=== PATIENT | male | born 1955 | race Caucasian/White ===

== ENCOUNTER 2021-12-27 10:03 | Emergency (ER) | payer MEDICARE, BC, SELFPAY ==
[2021-12-27 10:33] VITALS: BP 126/67; PULSE 72; RESP 18; TEMP 36.8; O2SAT 98; BMI 41.1
--- NOTE | 2021-12-27 11:02 | CRLHL7_ITS ---
For Patients: As a result of the Century Cures Act, medical imaging exams and procedure reports are released immediately into your electronic medical record. You may view this report before your referring provider. If you have questions, please contact your health care provider. INDICATION: Pain and swelling COMPARISON: none TECHNIQUE: A compression venous ultrasound exam was performed of both lower extremities using rosenbaum scale imaging, color Doppler and spectral Doppler analysis. FINDINGS: Sonographic imaging of the lower extremities demonstrates normal compressibility and color Doppler venous blood flow within the common femoral, deep femoral, and proximal greater saphenous veins. Within the thighs the femoral veins are patent and compressible. At a lower level the popliteal and posterior tibial veins also show normal compressibility and color Doppler venous blood flow on the left. However, on the right, there is sluggish flow within the right popliteal vein and incomplete compressibility of 1 of the posterior tibial veins. Incomplete visualization of the right peroneal veins. Incidental popliteal cyst is noted on the right measuring 5.1 x 1.2 x 2.1 cm. IMPRESSION: Suspicion of a DVT within the right proximal calf at the level of the distal popliteal vein extending into 1 of the posterior tibial veins and possibly the right peroneal vein. No left-sided DVT. Called to Dr. Herrera 12:40 p.m. 12/27/21. Dictated by Shukri Coles MD @ 12/27/2021 12:41:57 PM (Electronically Signed)
--- NOTE | 2021-12-27 11:04 | ED_ITS ---
HPI - Extremity Problem General Chief complaint: Lower Extremity Swelling Stated complaint: Swelling right leg Time Seen by Provider: 12/27/21 10:43 History of Present Illness HPI Narrative: This 66-year-old male comes in reporting pain and swelling in his right lower extremity. This began about a week ago and is not related to any particular injury event or strenuous activity. He does have chronic knee pain. He states that he typically lays around most of the day and watches TV. He does not report any chest pain or shortness of breath. He does not have a prior history of DVT. Related Data Home Medications Medication Instructions Recorded Confirmed aspirin 81 mg tablet,delayed 81 mg PO QDAY 11/27/21 11/27/21 release lisinopril 20 mg tablet 20 mg PO QDAY 11/27/21 11/27/21 lorazepam 1 mg tablet 1 mg PO QDAY 11/27/21 11/27/21 meloxicam 15 mg tablet 15 mg PO QDAY 11/27/21 11/27/21 metformin 500 mg tablet 1,000 mg PO BID 11/27/21 11/27/21 omeprazole 40 mg capsule,delayed 40 mg PO DAILY 11/27/21 11/27/21 release quetiapine 200 mg tablet 200 mg PO QDAY 11/27/21 11/27/21 sertraline 50 mg tablet 50 mg PO QDAY 11/27/21 11/27/21 simvastatin 20 mg tablet 20 mg PO .hs 11/27/21 11/27/21 tamsulosin 0.4 mg capsule 0.4 mg PO QDAY 11/27/21 11/27/21 trazodone 50 mg tablet 50 mg PO .hs 11/27/21 11/27/21 Previous Rx's Medication Instructions Recorded glimepiride 4 mg tablet 4 mg PO QDAY #90 tabs 11/27/21 semaglutide 0.25 mg or 0.5 mg (2 0.25 mg (0.2 mL) subcut QWEEK #1.5 11/27/21 mg/1.5 mL) subcutaneous pen mL injector (Ozempic) sitagliptin 100 mg tablet 100 mg PO QDAY #30 tabs 11/27/21 allopurinol 300 mg tablet 300 mg PO QDAY Gout #90 tabs 12/13/21 tramadol 50 mg tablet 50 - 100 mg PO QDAY PRN pain #90 12/18/21 tabs gabapentin 300 mg capsule 900 mg PO TID #270 caps 12/20/21 apixaban 5 mg (74 tabs) tablets in See Rx Instructions PO .COMPLEX 12/27/21 a dose pack #74 ea Allergies Allergy/AdvReac Type Severity Reaction Status Date / Time No Known Allergies Allergy Verified 11/27/21 09:29 Review of Systems Status of ROS: Reports: 10 or more systems reviewed and unremarkable except as noted in History and below Narrative: Constitutional: No fevers, no weight gain or loss. Eyes: No discharge. No vision changes. HENT: No congestion, no sore throat, no ear pain. Cardiovascular: No chest pain, no palpitations. Respiratory: No shortness of breath, no wheezes, no cough. Gastrointestinal: No abdominal pain, no vomiting, no diarrhea. Genitourinary: No dysuria, no hematuria. Musculoskeletal: Normal range of motion. Right lower extremity pain and swelling as described above. Skin: No rashes, no pruritis. Neurological: No dizziness, weakness, sensory change, speech change. Endo/Heme/Allergies: No bruising or bleeding. No polydipsia. Pysch: no suicidality, no anxiety, no insomnia. All other systems reviewed and are negative. 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 HEENT: Normocephalic, atraumatic. Neck: Normal range of motion. Nontender. Supple. Heart: Regular. No murmurs. Normal rate. Intact distal pulses. Lungs: Clear to auscultation. No chest discomfort. No wheezes, rhonchi, or rales. Abdomen: Normal bowel sounds. Nontender. No rebound tenderness. Genitalia: Deferred. Back: No midline tenderness. Normal range of motion. Extremities: Normal range of motion. Right lower extremity is distinctly larger from his knee extending down into the ankle and foot. There is distinct pain when palpating along his right lower extremity. Skin: Intact. No rash. Warm. No erythema or pallor. Neurologic: No altered sensation. No weakness. Alert and oriented. Psychiatric: No suicidality. No anxiety or depression. No insomnia. Nursing notes and vitals signs are reviewed. Const: Vital Signs, click to edit/add: Vital Signs - 24 hr 12/27/21 10:33 Temperature 98.3 F Pulse Rate [Right Pulse Oximeter] 72 Respiratory Rate 18 Blood Pressure [Ri ght Upper Arm] 126/67 Pulse Oximetry 98 Oxygen Delivery Me thod Room Air Course Vital Signs Vital signs: Initial Vital Signs Temperature 98.3 F 12/27/21 10:33 Temperature Source Temporal Artery Scan 12/27/21 10:33 Pulse Rate 72 12/27/21 10:33 Respiratory Rate 18 12/27/21 10:33 Blood Pressure 126/67 12/27/21 10:33 Blood Pressure Mean 86 12/27/21 10:33 Blood Pressure Position Sitting 12/27/21 10:33 Pulse Oximetry 98 12/27/21 10:33 Oxygen Delivery Method 12/27/21 10:33 Vital Signs Temperature 98.3 F 12/27/21 10:33 Pulse Rate 72 12/27/21 10:33 Respiratory Rate 18 12/27/21 10:33 Blood Pressure 126/67 12/27/21 10:33 Pulse Oximetry 98 12/27/21 10:33 Oxygen Delivery Method 12/27/21 10:33 Temperature 98.3 F 12/27/21 10:33 Pulse Rate 72 12/27/21 10:33 Respiratory Rate 18 12/27/21 10:33 Blood Pressure 126/67 12/27/21 10:33 Pulse Oximetry 98 12/27/21 10:33 Oxygen Delivery Method 12/27/21 10:33 MDM - Extremity (Nontraumatic) MDM Narrative Medical decision making narrative: This patient comes in with pain and swelling in his right lower extremity. Ul trasound imaging does show evidence of a clot in the calf of his right leg. Patient does not have any chest pain or shortness of breath. He does not have any abnormal vital signs are hypoxia. I did discuss CT imaging of his chest which she declined. He the patient received a tablet of Eliquis 10 mg and a prescription for the same. He is okay to be discharged home. Imaging Data Venous US: Radiologist's impression: Suspicion of a DVT within the right proximal calf at the level of the distal popliteal vein extending into 1 of the posterior tibial veins and possibly the right peroneal vein. No left-sided DVT. Discharge Plan Discharge Clinical Impression: Deep venous thrombosis Condition: Stable Instructions: Deep Vein Thrombosis (ED) Additional Instructions: Take medication as prescribed. Follow up with primary physician. Return if worsening symptoms happen. Prescriptions: New apixaban 5 mg (74 tabs) tablets,dose pack See Rx Instructions .ROUTE .COMPLEX Qty: 74 0RF Rx Instructions: orally per package directions No Action omeprazole 40 mg capsule,delayed release(DR/EC) 40 mg PO DAILY Label Comments: TAKE ONE CAPSULE BY MOUTH DAILY simvastatin 20 mg tablet 20 mg PO .hs Label Comments: TAKE ONE TABLET BY MOUTH AT BEDTIME sertraline 50 mg tablet 50 mg PO QDAY Label Comments: TAKE 1 TABLET BY MOUTH DAILY metformin 500 mg tablet 1,000 mg PO BID lorazepam 1 mg tablet 1 mg PO QDAY Label Comments: TAKE ONE TABLET BY MOUTH TWICE DAILY NEEDED quetiapine 200 mg tablet 200 mg PO QDAY Label Comments: TAKE ONE TABLET BY MOUTH AT BEDTIME tamsulosin 0.4 mg capsule 0.4 mg PO QDAY Label Comments: TAKE ONE CAPSULE BY MOUTH DAILY lisinopril 20 mg tablet 20 mg PO QDAY Label Comments: take 1 tablet by mouth daily trazodone 50 mg tablet 50 mg PO .hs Label Comments: take 1.5 tablets by mouth 3 times daily meloxicam 15 mg tablet 15 mg PO QDAY Label Comments: TAKE ONE TABLET BY MOUTH DAILY aspirin 81 mg tablet,delayed release (DR/EC) 81 mg PO QDAY Ozempic 0.25 mg or 0.5 mg(2 mg/1.5 mL) pen injector 0.25 mg subcut QWEEK Qty: 1.5 1RF Rx Instructions: for 4 doses then 0.5 mg weekly x 4 weeks glimepiride 4 mg tablet 4 mg PO QDAY Qty: 90 1RF sitagliptin 100 mg tablet 100 mg PO QDAY Qty: 30 2RF Rx Instructions: 1/2 QD x 2 weeks then 1 QD allopurinol 300 mg tablet 300 mg PO QDAY Qty: 90 3RF Label Comments: TAKE 1 TABLET BY MOUTH DAILY tramadol 50 mg tablet 50 - 100 mg PO QDAY PRN (Reason: pain) Qty: 90 2RF Label Comments: take 1-2 tablets by mouth every 6 hours as needed gabapentin 300 mg capsule 900 mg PO TID Qty: 270 11RF Follow Up/Referrals: Mario Keith MD [Primary Care Provider] - Stand Alone Forms: [facility] Info Instructions
--- OUTSIDE RECORDS SUMMARY | 2021-12-27 11:07 | XMS_ITS | Clinical Summary ---
:1955 Author Organization [place] Address [address] [place] [address] Care Team Providers Name Role Phone Mario Keith MD Primary Care Provider [phone] Allergies Active Allergy Reactions Severity Noted Date Comments Bupropion Hydrobromide Hives 06/20/2012 Medications Medication Sig Dispensed Refills Start Date End Date Status allopurinol (ZYLOPRIM) Take 1 tablet by 0 12/15/2020 Active 300 MG tablet mouth daily aspirin (ASA) 81 MG Take 81 mg by 0 Active chewable tablet mouth daily gabapentin (NEURONTIN) Take 900 mg by 0 01/30/2021 Active 300 MG capsule mouth 3 times daily lisinopril (ZESTRIL) Take 20 mg by 0 12/18/2020 Active 20 MG tablet mouth daily metFORMIN (GLUCOPHAGE) Take 500 mg by 0 02/23/2021 Active 500 MG tablet mouth 3 times daily (with meals) omeprazole (PRILOSEC) Take 40 mg by 0 02/20/[address] capsule mouth daily QUEtiapine (SEROQUEL) Take 200 mg by 0 02/20/2021 Active 200 MG tablet mouth At Bedtime sertraline (ZOLOFT) 50 Take 50 mg by 0 01/20/2021 Active MG tablet mouth daily simvastatin (ZOCOR) 20 Take 20 mg by 0 01/24/2021 Active MG tablet mouth daily (with dinner) tamsulosin (FLOMAX) Take 0.4 mg by 0 02/15/2021 Active 0.4 MG capsule mouth daily traMADol (ULTRAM) 50 Take 1-2 tablets 0 02/28/2021 Active MG tablet by mouth every 6 hours as needed for pain traZODone (DESYREL) 50 Take 75 mg by 0 02/28/2021 Active MG tablet mouth At Bedtime meloxicam (MOBIC) 15 Take 15 mg by 0 12/12/2020 Active MG tablet mouth daily LORazepam (ATIVAN) 1 Take 0.5 tablets 0 03/06/2021 Active MG tablet (0.5 mg) by mouth 3 times daily as needed for anxiety Active Problems Problem Noted Date Acute right-sided weakness 03/03/2021 Gastric bypass status for obesity 01/04/2013 JUSTIN (generalized anxiety disorder) 10/18/2009 Major depressive disorder, recurrent episode 0 Alcohol abuse, continuous 08/31/2009 Esophageal reflux 04/03/2006 Obesity, unspecified 04/03/2006 Tobacco use disorder 04/03/2006 Overview: Formatting of this note might be differe nt from the original. 12 year history of 5 PPD. Quit in December of 2005. Essential hypertension DM2 (diabetes mellitus, type 2) STEVEN (obstructive sleep apnea) Social History Tobacco Use Types Packs/Day Years Used Date Former Smoker Smokeless Tobacco: Never Used Alcohol Use Standard Drinks/Week Comments Yes 3 (1 standard drink = 0.6 oz pure Alcoho lic Drinks/day: none in last alcohol) week, usual 4-5 beer s a day Sex Assigned at Date Recorded Not on file Last Filed Vital Signs Vital Sign Reading Time Taken Comments Blood Pressure 187/83 03/06/2021 3:58 PM CDT Pulse 81 03/06/2021 3:58 PM CDT Temperature 37 ??C (98.6 ??F) 03/06/2021 3:58 PM CDT Respiratory Rate 18 03/06/2021 3:58 PM CDT Oxygen Saturation 96% 03/06/2021 3:58 PM CDT Inhaled Oxygen Concentration - - Weight 137.8 kg (303 lb 14.4 oz) 03/03/2021 3:42 PM CDT Height 180.3 cm (5' 11) 03/03/2021 3:42 PM CDT Body Mass Index 42.39 03/03/2021 3:42 PM CDT Plan of Treatment Health Maintenance Due Date Last Done Comments ADVANCE CARE PLANNING 1955 ANNUAL REVIEW OF HM ORDERS [address] CT COLONOGRAPHY 1954 DEPRESSION ACTION PLAN 1954 DIABETIC FOOT EXAM 1954 EYE EXAM 1954 FIT-DNA (Cologuard) 1954 FIT 1954 FLEX SIG 1954 MICROALBUMIN 1954 PHQ-9 1954 COLONOSCOPY 1964 COLORECTAL CANCER SCREENING 1964 HEPATITIS C SCREENING 1972 DTAP/TDAP/TD IMMUNIZATION 11/22/1979 (1 - Tdap) LUNG CANCER SCREENING 2004 AORTIC ANEURYSM SCREENING 11/22/2019 (SYSTEM ASSIGNED) FALL RISK ASSESSMENT 11/22/2019 MEDICARE ANNUAL WELLNESS 11/22/2019 VISIT COVID-19 Vaccine (2 - 09/18/2020 07/24/2020 Booster for Mellissa series) A1C 09/01/2021 03/03/2021, 11/29/2017 INFLUENZA VACCINE (#1) 2022 02/02/2021, 01/13/2020, 02/12/2019, Additional history exists LIPID 03/03/2022 03/03/2021 BMP 03/04/2022 03/04/2021, 03/03/2021, 11/29/2017, Additional history exists Pneumococcal Vaccine: 65+ 11/14/2022 07/06/2020, 11/14/2017 , Years (3 - PPSV23 or PCV20) 07/04/2012 ZOSTER IMMUNIZATION Completed 09/05/2018, 11/14/2017 IPV IMMUNIZATION Aged Out No longer eligi ble based on patient 's age to complete this topic MENINGITIS IMMUNIZATION Aged Out No longe r eligible based on patient 's age to complete this topic Medical Devices Implanted Type Area Child Welfare Consultant Device Shelf Model / Identifier Expiration Serial / Date Lot Cement Bone Simplex Hv 40g W/O Gentra Cement, N/A: YVON 04/18/2019 [id number] / Implanted: Qty: 2 on 11/28/2017 Bone Knee ORTHOPEDICS / [id number] Description: Implanted into bilateral kn ees Persona Partial Knee System Partial Bárbara cular Surface Left Medial Size J 8mm Thickness Total Joint Left: Shopography 08/17/2021 [id number] / Implanted: Qty: 1 on 11/28/2017 Component/Insert Knee / [id number] Insurance Payer Benefit Plan / Subscriber ID Effective Phone Address T ype Group Dates BCBS [place] [id number] 2018-Prese [phone] [address] [id number] [address] [place] [address] MEDICARE MEDICARE [id number] 2012-Pres [phone] ATTN CLAI [place] Medicare ent 40 [address] [place] [address] Advance Directives For more information, please contact: [phone] Latest Code Status on File Code Status Date Activated Date Inactivated Comments Full Code 03/03/2021 3:38 PM 03/06/2021 6:26 PM All basic and advanced life-sustaining interventions are performed as oj ropriate Code status determined by: Discussion with patient/ legal de cision maker Care Teams Cement Patcher Relationship Specialty Start Date End Date Mario Keith MD PCP - General Internal Medicine 11/28/17 [facility] [address] [place] [address]
--- OUTSIDE RECORDS SUMMARY | 2021-12-27 11:08 | XMS_ITS | Encounter Summary ---
:1955 Author Organization [facility] Address [address] [place] [address] Care Team Providers Name Role Phone Unavailable Primary Care Provider Unavailable Encounter Details Date Type Department Care Team Description 03/07/2009 Historic Notes INTERFACED REPORT Blas Becker DO [facility] [address] [facility] [address] [place] [address] (Wo rk) Social History Tobacco Use Types Packs/Day Years Used Date Never Assessed Sex Assigned at Date Recorded Not on file documented as of this encounter Progress Notes 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 He states that he is having fun in the hospital. He states improvement in his depression and anxiety. He slept ok last night and is tolerating the medication without SE. He also reports improvement in his pain. Review of Systems - Constitutional: Negative - Skin: Negative - Musculoskeletal numbness in left leg Comments: - Eyes: Negative - ENT: Negative - Endocrine Comments: DM - Respiratory: Negative - Cardiovascular: Negative - Heme: Negative - Lymph: Negative - GI: Negative - : Negative - Neuro: Negative - Psych Comments: depression / anxiety Mental Status Exam - General Appearance: fair grooming and hygiene - Speech: RRR - Thought Process: goal directed - Suicidal/Ideation/Ho_ denies micidal Ideations/Psychosis: - Associations: denies - Judgment and Insight: limited - Orientation to Time, x3 Place, Person: - Recent and Remote intact Memory: - Attention Span and intact Concentration: - Fund of Knowledge: wnl - Mood and Affect: depressed/anxious broad - Muscle wnl Strength/Tone/Gait and Station: Labs Laboratory 08:23 Glucose by Meter 146 VS 1. Vital Signs Adult Med Surg 08:00 - Temperature degrees 36.6 C - Temperature degrees 98 F - Resp, Pulse Ox Resp 16 Rate - Pain complains of pain/discomfort Assessment/Number Scale (0-10) (Adult) Presence of Pain - Pain feet Assessment/Number Scale (0-10) (Adult) Pain Location - Pain 2 Assessment/Number Scale (0-10) (Adult) Pain Rating: Rest - BP Sitting Systolic 104 mmHg - BP Sitting Diastolic 64 mmHg - BP Sitting HR bpm 59 - BP Standing Systolic 120 mmHg - BP Standing 73 Diastolic mmHg - BP Standing HR bpm 69 Risk Assessment - Diagnosis(es): MDD Anxiety D/O NOS Benzo depend. Personality D/O NOS - Discussion/Plan of discussed continued pheno taper. dicussed Care: working toward D/C Saturday. continue current treatment plan. Signatures BLAS BECKER (DO)[Signed 10:42] Authored: Problem List, Interval History, Review of Systems, Mental Status Exam, Labs, VS, Risk Assessment Entered: Problem List, Interval History, Review of Systems, Mental Status Exam, VS, Risk Assessment documented in this encounter Plan of Treatment Not on filedocumented as of this encounter Visit Diagnoses Not on filedocumented in this encounter
--- OUTSIDE RECORDS SUMMARY | 2021-12-27 11:08 | XMS_ITS | Encounter Summary ---
:1955 Author Organization [facility] Address [address] [place] [address]. [place] [address] Care Team Providers Name Role Phone Unavailable Primary Care Provider Unavailable Reason for Visit Reason Onset Date Comments Abstract 05/28/2017 Encounter Details Date Type Department Care Team Description 05/28/2017 Documentation Only [facility] Erica Rodriguez bstract Surgical Weight Loss Paras Be A-Aldo [id number] [place] [address] [place] [address] [phone] Social History Tobacco Use Types Packs/Day Years Used Date Never Assessed Sex Assigned at Date Recorded Not on file documented as of this encounter Plan of Treatment Not on filedocumented as of this encounter Visit Diagnoses Not on filedocumented in this encounter
--- OUTSIDE RECORDS SUMMARY | 2021-12-27 11:08 | XMS_ITS | Encounter Summary ---
:1955 Author Organization [facility] Address [address] [place] [address] Care Team Providers Name Role Phone Unavailable Primary Care Provider Unavailable Encounter Details Date Type Department Care Team Description 03/05/2009 Historic Results [facility] [address] [facility] [place] [address] (Wo rk) Social History Tobacco Use Types Packs/Day Years Used Date Never Assessed Sex Assigned at Date Recorded Not on file documented as of this encounter Plan of Treatment Not on filedocumented as of this encounter Procedures Procedure Name Priority Date/Time Associated Diagnosis Comme nts GLUCOSE BY METER Routine 03/05/2009 5:33 PM Resul ts for this CDT procedure are i n the results section. GLUCOSE BY METER Routine 03/05/2009 8:39 AM Resul ts for this CDT procedure are i n the results section. documented in this encounter Results (ABNORMAL) Glucose by meter (03/05/2009 5:33 PM CDT) P athologist Signature Glucose 129 (H) 60 - 99 MISYS mg/dL Specimen Anatomical Collection Method Collection Time Receive d Time (Source) Location / / Volume Laterality 03/05/2009 5:33 PM 9 1:15 CDT AM CDT Shukri Becker DO LAB - [facility] Performing Organization Address City/State/ZIP Code Phon e Number MISYS (ABNORMAL) Glucose by meter (03/05/2009 8:39 AM CDT) P athologist Signature Glucose 130 (H) 60 - 99 [place] mg/dL Specimen Anatomical Collection Method Collection Time Receive d Time (Source) Location / / Volume Laterality 03/05/2009 8:39 AM 9 8:50 CDT AM CDT Shukri HANNAH - [facility] Performing Organization Address City/State/ZIP Code Phon e Number MISYS documented in this encounter Visit Diagnoses Not on filedocumented in this encounter
--- OUTSIDE RECORDS SUMMARY | 2021-12-27 11:08 | XMS_ITS | Encounter Summary ---
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 - Patient Care Unit: Station 33 - Discharge To: Home/Alternative home - Method of discharge: Wheel Chair - Transportation: Private Medications and Prescriptions - Medications and Prescriptions sent to pharmacy Prescriptions Special Care Needs and Instructions - Diet Instructions: Gastric bypass diet education completed. - Report temp if 101 degrees F greater than: - Symptoms/Problems to See weight loss surgery sheet look for at home- call the physician about: - Who patient should Dr. White call: - Phone number of [facility] [phone] patient should call: Other Discharge Education, Materials, and Instructions - Other Education, Going home after weight loss surgery sheet Materials, and Instructions: Follow Up Care - Physician/clinician Dr. White name: - - When to see 1 week physician/clinician: DAVIDA Lutz (RD, LD)[Signed 12:07] Authored: Special Care Needs and Instructions AUGUSTUS MENDOZA (RN)[Signed 11:31] Authored: Discharge Planning, Medications and Prescriptions, Special Care Needs and Instructions, Other Discharge Education, Materials, and Instructions, Follow Up Care Interface, Supervisor [facility] - 08/06/2010 9:23 PM CDT BARIATRIC SURGERY CONSULT Ht: 70 Wt: 298.15# BMI: 42.8 IBW: 166# +/-10% %IBW: 180% NUTRITION PRESCRIPTION: Gastric bypass liquids Energy Needs: 2034 kcals (15 kcal/kg ABW) Protein needs: 76-98 gms (1.0 to 1.3 gm/kg IBW) Fluid needs: 2034 mls (1ml/kcal ABW) Know pt will not meet estimated needs due to the restrictive nature of surgery NUTRITION DIAGNOSIS: Obesity R/t excess energy intake AEB current BMI of 42.8 INTERVENTIONS: 1) Reviewed gastric bypass diet guidelines, provided copy of diet materials 2) Pt verbalizes understanding of diet. Expect good compliance with diet at home GOALS: 1) Pt to follow diet advancement as instructed 2) Pt weight to have decreased from pre-op weight at 2 week F/U appointment FOLLOW UP: 1) Pt will tolerate diet 2) Pt to call with questions, RD phone number provided [Signature] Author: DAVIDA KIM (RD, LD) [Signed 12:05] documented in this encounter Plan of Treatment Not on filedocumented as of this encounter Visit Diagnoses Not on filedocumented in this encounter
--- OUTSIDE RECORDS SUMMARY | 2021-12-27 11:08 | XMS_ITS | Encounter Summary ---
:1955 Author Organization [facility] Address [address] [place] [address] Care Team Providers Name Role Phone Unavailable Primary Care Provider Unavailable Reason for Visit Reason Onset Date Comments Clinic Care Coordination - Initial 02/27/2016 Encounter Details Date Type Department Care Team Description 02/27/2016 Telephone General Surgery Gaby Sanford, Clinic Care [address] [facility] RN Coordination - Initial 4th Floor [address] [place] [id number] [place], [place] [phone] (Wo rk) Social History Tobacco Use Types Packs/Day Years Used Date Never Assessed Sex Assigned at Date Recorded Not on file documented as of this encounter Miscellaneous Notes Telephone Encounter - Gaby Sanford, RN - 02/27/2016 3:25 PM CDT Referral from [employer] website. Patient has history of RYGB, would not be a candidate for the intragastric balloon. Encourage patient to set up appt for medical weight management. Contact information given. documented in this encounter Plan of Treatment Not on filedocumented as of this encounter Visit Diagnoses Not on filedocumented in this encounter
--- OUTSIDE RECORDS SUMMARY | 2021-12-27 11:08 | XMS_ITS | Encounter Summary ---
:1955 Author Organization [facility] Address [address] [facility] [place] [address] Care Team Providers Name Role Phone Unavailable Primary Care Provider Unavailable Reason for Visit Reason Onset Date Comments Patient Request 10/23/2012 Encounter Details Date Type Department Care Team Description 10/23/[address] [facility] Weight Alireza White MD Patient Request Management Clinic [facility] [address] [place] [address] [address] [place] [id number] [phone] Social History Tobacco Use Types Packs/Day Years Used Date Never Assessed Sex Assigned at Date Recorded Not on file documented as of this encounter Miscellaneous Notes Telephone Encounter - Shanti Stallworth - 10/23/2012 2:11 PM CDT Patient called inquiring if he could have a Revision to a LapBand. Patient had a Bypass with Dr. White in 2007. Patient stated he was non compliant, drank beers, smoked and basically did not follow the rules. He has diabetes and his knees hurt. He is up to 290 lbs now. I spoke with Dr White and he will not do a Revision to band on a Bypass patient. Dr White said he would be happy to see patient along with a dietitcian to help patient get back on track. I called patient and let him know. He will think about coming in. Shanti Stallworth documented in this encounter Plan of Treatment Not on filedocumented as of this encounter Visit Diagnoses Not on filedocumented in this encounter
--- OUTSIDE RECORDS SUMMARY | 2021-12-27 11:08 | XMS_ITS | Encounter Summary ---
:1955 Author Organization [facility] Address [address] [place] [address] Care Team Providers Name Role Phone Mario Keith MD Primary Care Provider [phone] Encounter Details Date Type Department Care Team Description 11/27/2017 Anesthesia - [facility] MD Nina Duxbury [place] [address] [place] [id number] [place], [place] [phone] Social History Tobacco Use Types Packs/Day Years Used Date Never Assessed Sex Assigned at Date Recorded Not on file documented as of this encounter OR Notes Anesthesia Postprocedure Evaluation - Behzad Aponte MD - 11/28/2017 1:58 PM CDT Patient: Leandro Curiel BILATERAL MEDIAL UNICOMPARTMENTAL ARTHROPLASTY Anesthesia type: spinal Patient location: PACU Last vitals: Vitals: 11/28/17 1300 BP: 155/78 Pulse: (!) 59 Resp: 16 Temp: SpO2: 97% Post vital signs: stable Level of consciousness: awake and responds to simple questions Post-anesthesia pain: pain controlled Post-anesthesia nausea and vomiting: no Pulmonary: unassisted, return to baseline Cardiovascular: stable and blood pressure at baseline Hydration: adequate Anesthetic events: no QCDR Measures: ASA# 11 - Kathleen-op Cardiac Arrest: ASA11B - Patient did NOT experience unanticipated cardiac arrest ASA# 12 - Kathleen-op Mortality Rate: ASA12B - Patient did NOT ASA# 13 - PACU Re-Intubation Rate: NA - No ETT / LMA used for case ASA# 10 - Composite Anes Safety: ASA10A - No serious adverse event Additional Notes: Anesthesia Procedure Notes - Behzad Aponte MD - 11/28/2017 9:26 AM CDT Spinal Block Patient location during procedure: OR Start time: 11/28/2017 9:20 AM End time: 11/28/2017 9:23 AM Reason for block: primary anesthetic Staffing: Performing Anesthesiologist: BEHZAD APONTE Preanesthetic Checklist Completed: patient identified, risks, benefits, and alternatives discussed, timeout performed, consent obtained, airway assessed, oxygen available, suction available, emergency drugs available and handhygiene performed Spinal Block Patient position: sitting Prep: ChloraPrep Patient monitoring: heart rate, security monitor, continuous pulse ox and blood pressure Approach: midline Location: L3-4 Injection technique: single-shot Needle type: pencil-tip Needle gauge: 22 G Anesthesia Procedure Notes - Behzad Aponte MD - 11/28/2017 8:53 AM CDT Peripheral Block Patient location during procedure: pre-op Start time: 11/28/2017 8:40 AM End time: 11/28/2017 8:45 AM post-op analgesia per surgeon order as noted in medical record Staffing: Performing Anesthesiologist: BEHZAD APONTE Preanesthetic Checklist Completed: patient identified, site marked, risks, benefits, and alternatives discussed, timeout performed, consent obtained, airway assessed, oxygen available, suction available, emergency drugs available and hand hygiene performed Peripheral Block Prep: ChloraPrep Patient position: supine Patient monitoring: blood pressure, heart rate, continuous pulse oximetry and security monitor Laterality: right Injection technique: ultrasound guided Ultrasound used to visualize needle placement in proximity to nerve being blocked: yes Permanent ultrasound image captured for medical record Needle Needle type: Stimuplex Needle gauge: 20G Needle length: 6 in no peripheral nerve catheter placed Assessment Injection assessment: negative aspiration for heme, no paresthesia on injection, incremental injection and no difficulty with injection Additional Notes 15ml 0.5% bupivacaine w/ epi 1:200K injected for nerve block. Anesthesia Procedure Notes - Behzad Aponte MD - 11/28/2017 8:52 AM CDT Peripheral Block Patient location during procedure: pre-op Start time: 11/28/2017 8:35 AM End time: 11/28/2017 8:40 AM post-op analgesia per surgeon order as noted in medical record Staffing: Performing Anesthesiologist: BEHZAD APONTE Preanesthetic Checklist Completed: patient identified, site marked, risks, benefits, and alternatives discussed, timeout performed, consent obtained, airway assessed, oxygen available, suction available, emergency drugs available and hand hygiene performed Peripheral Block Prep: ChloraPrep Patient position: supine Patient monitoring: blood pressure, heart rate, continuous pulse oximetry and security monitor Laterality: left Injection technique: ultrasound guided Ultrasound used to visualize needle placement in proximity to nerve being blocked: yes Permanent ultrasound image captured for medical record Needle Needle type: Stimuplex Needle gauge: 20G Needle length: 6 in no peripheral nerve catheter placed Assessment Injection assessment: negative aspiration for heme, no paresthesia on injection, incremental injection and no difficulty with injection Additional Notes 15ml 0.5% bupivacaine w/ epi 1:200K injected for nerve block. Anesthesia Preprocedure Evaluation - Behzad Aponte MD - 11/28/2017 8:07 AM CDT Anesthesia Evaluation Patient summary reviewed No history of anesthetic complications Airway Mallampati: I Neck ROM: full Pulmonary - negative ROS and normal exam (+) sleep apnea on CPAP, , Cardiovascular - negative ROS and normal exam (+) hypertension well controlled, dysrhythmias, , hypercholesterolemia, Neuro/Psych - negative ROS Endo/Other - negative ROS (+) diabetes mellitus type 2 well controlled, obesity, GI/Hepatic/Renal - negative ROS Dental - normal exam Anesthesia Plan Planned anesthetic: spinal and peripheral nerve block Bilateral peripheral nerve block for post-op analgesia as ordered by surgeon. Saphenous blocks. ASA 3 Anesthetic plan and risks discussed with: patient Post-op plan: routine recovery documented in this encounter Miscellaneous Notes Anesthesia Care Transfer Note - Gerardo Valentine APRN CRNA - 11/28/2017 11:49 AM CDT Last vitals: Vitals: 11/28/17 1150 BP: 140/75 Pulse: 68 Resp: 13 Temp: 36.9 ??C (98.4 ??F) SpO2: 97% Patient's level of consciousness is drowsy Spontaneous respirations: yes Maintains airway independently: yes Dentition unchanged: yes Oropharynx: oropharynx clear of all foreign objects QCDR Measures: ASA# 20 - Surgical Safety Checklist: WHO surgical safety checklist completed prior to induction PQRS# 430 - Adult PONV Prevention: NA - Not adult patient, not GA or 3 or more risk factors NOT present ASA# 8 - Peds PONV Prevention: NA - Not pediatric patient, not GA or 2 or more risk factors NOT present PQRS# 424 - Kathleen-op Temp Management: 4559F - At least one body temp DOCUMENTED => 35.5C or 95.9F within required timeframe PQRS# 426 - PACU Transfer Protocol:G9655 - Transfer of care checklist used ASA# 14 - Acute Post-op Pain: ASA14B - Patient did NOT experience pain >= 7 out of 10 documented in this encounter Plan of Treatment Not on filedocumented as of this encounter Visit Diagnoses Not on filedocumented in this encounter Care Teams Shape Carver Relationship Specialty Start Date End Date Mario Keith MD PCP - General Internal Medicine 11/28/17 [place] [address] documented as of this encounter
--- OUTSIDE RECORDS SUMMARY | 2021-12-27 11:08 | XMS_ITS | Encounter Summary ---
:1955 Author Organization [facility] Address [address] [place] [address] Care Team Providers Name Role Phone Unavailable Primary Care Provider Unavailable Encounter Details Date Type Department Care Team Description 10/20/2007 Historic Results INTERFACED REPORT Alireza White MD [address] [facility] [address] [place], [place] [id number] (Wo rk) Social History Tobacco Use Types Packs/Day Years Used Date Never Assessed Sex Assigned at Date Recorded Not on file documented as of this encounter Plan of Treatment Not on filedocumented as of this encounter Procedures Procedure Name Priority Date/Time Associated Diagnosis Comme nts PLATELET COUNT Routine 10/20/2007 6:50 PM Results for this CDT procedure are i n the results section. GLUCOSE BY METER Routine 10/20/2007 1:37 PM Resul ts for this CDT procedure are i n the results section. HEMOGLOBIN Routine 10/20/2007 6:36 AM Results f or this CDT procedure are i n the results section. GLUCOSE Routine 10/20/2007 6:36 AM Results f or this CDT procedure are i n the results section. documented in this encounter Results Platelet count (10/20/2007 6:50 PM CDT) P athologist Signature Platelet Count 205 150 - 450 MISYS 10e9/L Specimen Anatomical Collection Method Collection Time Receive d Time (Source) Location / / Volume Laterality 10/20/2007 6:50 PM 8 4:43 CDT PM CDT Alireza White MD LAB - BLOOD ORDERABLES Performing Organization Address [facility] Phon e Number MISYS (ABNORMAL) Glucose by meter (10/20/2007 1:37 PM CDT) P athologist Signature Glucose 136 (H) 60 - 99 MISYS mg/dL Specimen Anatomical Collection Method Collection Time Receive d Time (Source) Location / / Volume Laterality 10/20/2007 1:37 PM 8 6:15 CDT AM CDT Alireza White MD LAB - BEAKER POCT Performing Organization Address [facility] Phon e Number MISYS (ABNORMAL) Glucose (10/20/2007 6:36 AM CDT) P athologist Signature Glucose 125 (H) 60 - 99 MISYS mg/dL Specimen Anatomical Collection Method Collection Time Receive d Time (Source) Location / / Volume Laterality 10/20/2007 6:36 AM 8 6:39 CDT AM CDT Alireza White MD LAB - BLOOD ORDERABLES Performing Organization Address [facility] Phon e Number MISYS Hemoglobin (10/20/2007 6:36 AM CDT) P athologist Signature Hemoglobin 14.0 13.3 - 17.7 MISYS g/dL Specimen Anatomical Collection Method Collection Time Receive d Time (Source) Location / / Volume Laterality 10/20/2007 6:36 AM 8 6:39 CDT AM CDT Alireza White MD LAB - BLOOD ORDERABLES Performing Organization Address [facility] Phon e Number MISYS documented in this encounter Visit Diagnoses Not on filedocumented in this encounter
--- OUTSIDE RECORDS SUMMARY | 2021-12-27 11:08 | XMS_ITS | Encounter Summary ---
:1955 Author Organization [facility] Address [address] [place] [address] Care Team Providers Name Role Phone Unavailable Primary Care Provider Unavailable Encounter Details Date Type Department Care Team Description 03/04/2009 Historic Notes INTERFACED REPORT Interface, Transcript onMD Social History Tobacco Use Types Packs/Day Years Used Date Never Assessed Sex Assigned at Date Recorded Not on file documented as of this encounter Progress Notes Interface, Sausage Grinder - 08/05/2010 5:43 PM CDT General Information - Has NOT attended OT 14:00 as of: Plan - Plan: Encourage attendance and participation. ALISHA Vieyra (OTR)[Signed 15:20] Authored: General Information, Plan documented in this encounter Plan of Treatment Not on filedocumented as of this encounter Visit Diagnoses Not on filedocumented in this encounter
--- OUTSIDE RECORDS SUMMARY | 2021-12-27 11:08 | XMS_ITS | Encounter Summary ---
:1955 Author Organization [facility] Address [address] [place] [address] Care Team Providers Name Role Phone Unavailable Primary Care Provider Unavailable Encounter Details Date Type Department Care Team Description 03/08/2009 Historic Notes INTERFACED REPORT Interface, Transcript on, Social History Tobacco Use Types Packs/Day Years Used Date Never Assessed Sex Assigned at Date Recorded Not on file documented as of this encounter Progress Notes Interface, Medical Records Analyst - 08/05/2010 5:32 PM CDT Summary of Progress and Discharge Plan - Summary: Pt's therapist appt is at [facility] in [place] and pt needs to be their at 12:30 to check in and Terrie (therapist) will need to make the referal for med management. - Symptoms to Report: thoughts of suicide, dial 911 - Lifestyle Adjustment: Do not use drugs or alcohol Psychiatry Follow-Up - Therapist: Terrie Rodríguez - Therapist Address: [address] [place] [address]. - Therapist Phone Number: - Therapist Appointment 01:00 Date/Time: Provider Information - Discharged From: [facility] - Unit: 30 - Unit - Method: ambulatory - Transportation: private - Discharged To: home - Accompanied by: Family/Friends Discharge Teaching Checklist - Patient/Family Patient/family understands purporse/diagnosis Understands: for this admission and what treatment consisted of., Patient/family states reasons for or demonstrates ability to manage medications and side effects., Patient/family understands how to care for self (i.e. pain managements, diet change, activity)., Patient/family can identify whom to call for questions after discharge., Patient/family can identify potential community resources after discharge., Patient/family knows who/where to go for medication refills. - Valuables Returned: yes - Medications Returned: yes - General Medication See your medication sheet(s) for instructions. Instructions: Take all medicines as directed. Make no changes unless your doctor suggests them. Go to all your doctor visits. Be sure to have all your required lab tests. This way, your medicines can be refilled on time. Do not use any drugs not prescribed by your doctor. Avoid alcohol. Resources - Resources Crisis Intervention: 857.735.1717 or 053 406-5278 (TTY: 623.904.1530); call anytime for help. National [place] [employer]ness (www.[place].apryl.org):: 684-844-8096 or 732-269-1862. Signatures BRITTNEE HART (Psychotherapist)[Signed 11:59] Authored: Summary of Progress and Discharge Plan, Psychiatry Follow-Up Mariann Sierra (RN)[Signed 11:45] Authored: Summary of Progress and Discharge Plan, Provider Information, Discharge Teaching Checklist, Resources documented in this encounter Plan of Treatment Not on filedocumented as of this encounter Visit Diagnoses Not on filedocumented in this encounter
--- OUTSIDE RECORDS SUMMARY | 2021-12-27 11:08 | XMS_ITS | Encounter Summary ---
:1955 Author Organization [place] Address [facility] [place] [address] Care Team Providers Name Role Phone Unavailable Primary Care Provider Unavailable Encounter Details Date Type Department Care Team Description 03/03/2009 Discharge Summary [facility] Blas Cates, (Assistant Credit Manager) [facility] [address] [place] [address] (Wo rk) Social History Tobacco Use Types Packs/Day Years Used Date Never Assessed Sex Assigned at Date Recorded Not on file documented as of this encounter Progress Notes Interface, Assistant Credit Manager - 03/30/2009 10:58 PM 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 Major depressive disorder, recurrent, moderate. 2. Anxiety disorder, not otherwise specified. 3. Benzodiazepine dependency. AXIS II: Personality disorder, not otherwise specified. AXIS III: As per Internal Medicine. AXIS IV: Long history of mental illness. AXIS V: Current Global Assessment of Functioning of 50. Total time of discharge is 33 minutes. DISCHARGE MEDICATIONS: 1. Celexa 60 mg daily. 2. Nexium 40 mg daily. 3. Neurontin 300 mg p.o. t.i.d. 4. Phenobarbital taper. 5. Seroquel 25 mg t.i.d. p.r.n. for anxiety. 6. Seroquel 25 mg each day at bedtime. 7. Glucophage 500 mg p.o. b.i.d. The patient was given a 30-day supply of the medications with no refills except for the phenobarbital taper. DISPOSITION: The patient is discharged to continue to follow up with outpatient psychiatry and therapy. CHIEF COMPLAINT ON ADMISSION: My family was concerned about me. History of present illness, past psychiatric history, past medical history, medications on admission, allergies, review of systems, physical exam, past social history, alcohol and drug history, legal history and past family history, please refer to initial evaluation. MENTAL STATUS EXAMINATION: Jett Georges is a 53-year-old white male who comes to the interview process cooperative. He shows fair grooming and hygiene. He has good eye contact throughout the interview. He has no psychomotor agitation. His affect is somewhat constricted. His mood he describes as depressed and anxious. Speech is regular rate and rhythm. Thought process is logical and goal directed. He has no looseness of association or flight of ideas. Fund of vocabulary is within normal limits. Content of thought: He denies any suicidal or homicidal ideations, but later states that he is having some passive suicidal ideations. He denies any auditory or visual hallucinations or delusional thinking. His insight and judgment are poor. He is alert and oriented x3. He has average intelligence. Cognitive and memory functions are intact. Station, gait and coordination are all within normal limits. HOSPITAL COURSE: The patient was admitted to inpatient psychiatric unit station 30 on a voluntary basis. Routine blood work was done and the patient was started on comfort medications. After seeing the patient, I did increase his Celexa up to 60 mg daily to help out with depression and anxiety, was also quite concerned about the chronic benzodiazepine use and the high dose of benzodiazepines the patient was on prior to coming to the hospital. Thus, I discontinued this and started him on a phenobarbital taper, also started him on Seroquel and titrated up the Seroquel up to 200 mg p.o. each day at bedtime for insomnia and anxiety. The patient responded quite well to the medications, did have good improvement with his anxiety with the medication changes. I also gave him up as-needed Seroquel duringthe day. For the most part, he did not need the as-needed Seroquel, but the patient was given a prescription to go home with in case he does have increased anxiety at home. He tolerated the phenobarbital taper without any side effects. He stated good improvement with his depression and anxiety. The patient made several comments that he was having fun here in the hospital. He did not appear to be inany distress during this hospital stay and stated good improvement with his depression and anxiety with the medication changes. He denied any suicidal or homicidal ideations throughout latter half of his hospital stay. He stated that he was motivated to continue follow up with outpatient psychiatry and therapy. He marginally participated in groups during his hospital stay. Once the phenobarbital taper was at lower point, the patient was able to be discharged to follow up with outpatient psychiatry and therapy. LABORATORY DATA DURING HOSPITALIZATION: The patient had a sodium of 138, potassium 4.1, chloride of102, CO2 27, anion gap 8.5 and glucose 210, which is elevated. The patient was not taking his medications prior to coming to the hospital. Creatinine is 0.9, calcium level 9.5, total bilirubin 0.5, albumin of 4.5, total protein 8.1, alkaline phosphatase 73, ALT of 27, AST 83, TSH 2.80 and GGT of 48. Vitamin B12 was 331. The patient on Accu-Cheks throughout his hospital stay, which ranged in the mid to low 100-200 range. No other laboratory data was done during hospitalization. CONSULTS: The patient did have an Internal Medicine consult; please refer to this consult for any details. Total time of discharge is 34 minutes. Electronically signed on 03/30/2009 22:57 by BLAS CATES DO MT: SONYA Name: JETT GEORGES Account: [id number] : 1955 Admit Date: [id number] Discharge Date: 03/08/2009 Document: [id number] TRON GUN ASSEMBLER documented in this encounter Plan of Treatment Not on filedocumented as of this encounter Visit Diagnoses Not on filedocumented in this encounter
--- OUTSIDE RECORDS SUMMARY | 2021-12-27 11:08 | XMS_ITS | Encounter Summary ---
:1955 Author Organization [place] Address [facility] [place] [address] Care Team Providers Name Role Phone Unavailable Primary Care Provider Unavailable Encounter Details Date Type Department Care Team Description 03/03/2009 Historic Special Education Resource Teacher [facility] Stewart DO [facility] [address] [place] [address] (Wo rk) Social History Tobacco Use Types Packs/Day Years Used Date Never Assessed Sex Assigned at Date Recorded Not on file documented as of this encounter Progress Notes Interface, Special Education Resource Teacher - 04/24/2011 7:16 AM DRY CLEANING CHECKER FINAL CHIEF COMPLAINT: My family was concerned about me. HISTORY OF PRESENT ILLNESS: Jett Georges is a 53-year-old white male who presented to [facility] [place], secondary to increased depression. The patient also states that he was hoping to come into the hospital so he could get on disability. Patient does report a 3-year history of depression and anxiety. He states that it all started when he stopped smoking. He states that he recently talked to a operational review sergeant and the operational review sergeant has convinced him that it was all related to his Chantix. He does report some neurovegetative signs of depression despite the fact the patient is no longer on Chantix. The patient does report some neurovegetative signs of depression including difficulty sleeping at night, feeling hopeless and helpless, poor concentration. His energy level has been way down. His weight he states has been stable. He does report some suicidal thoughts but has no previous suicide attempts. Denies any OCD symptoms, denies any panic attack symptoms. Denies any bipolar symptoms. However, the patient does describe some mood swings related to poor coping skills and life skills. Although the patient states he has had some anxiety, he does not meet any clear criteria for panic disorder or generalized anxiety disorder. He states that he is always anxious but also describes that he is having some agoraphobic symptoms. Denies ever having any psychotic symptoms. The patient has been on chronic benzodiazepines for the last 3 years and has extremely high dose of Ativan at this point at 6 mg per day. PAST PSYCHIATRIC HISTORY: No previous inpatient, psychiatry treatment or outpatient psychiatric treatment or chemical dependency treatment. PAST MEDICAL HISTORY: Chronic pain, gastric bypass and diabetes mellitus. MEDICATIONS: 1. Celexa 40 mg daily. 2. Metformin 1000 mg q.a.m., 500 mg each day at bedtime. 3. Nexium 40 mg daily. 4. Lorazepam 2 mg t.i.d. 5. He does state he has been off the metformin for the last year. ALLERGIES: Zyban. REVIEW OF SYSTEMS: CONSTITUTION: Denies any symptoms. HEENT: Denies any symptoms. RESPIRATORY: Denies any symptoms. CARDIOVASCULAR: Denies any symptoms. GASTROINTESTINAL: Denies any symptoms. GENITOURINARY: Denies any symptoms. MUSCULOSKELETAL: Does state pain all over his body. PSYCHIATRY: Does have history of depression and anxiety. ENDOCRINE: Denies any symptoms. INTEGUMENT: Denies any symptoms. HEMATOLOGY: Denies any symptoms. VITAL SIGNS: Height is 5 feet 10 inches, weight is 280 pounds. Rest of his vitals are stable. PHYSICAL EXAMINATION: Done by Internal Medicine. SOCIAL HISTORY: The patient states that he grew up in [place], [place]. He did graduate from high school. He was a C average student while in school. He had a few close friends while in school. Did do some dating in high school, was involved in extracurricular activities including football and basketball. He never went on to vocational school or college. States he last worked in 07/2007. He was working for [employer] and quit this job, according to the patient, was working there for about 4 years. It appears that he had some conflict at his job and quit the job. He has not worked since and is hoping to get on disability and in fact as described above, the patient states that he was hoping to come into the hospital so we would help facilitate so that he would be able to get on disability. He does state that he got at the age 17, at the age 40. Has 2 children from his first , a 35-year-old son, and a 29-year-old daughter. Got again at the age of 43 and at age 48. He has an 8-year-old son with his second . He does state that his 8-year-old son takes care of him. He does state that he has joint custody. ALCOHOL AND DRUG HISTORY: He does state that he drinks 2-3 times per week. He has been on chronic benzodiazepines at very high doses. LEGAL HISTORY: Denies any past or present legal problems. FAMILY HISTORY: Does state that his mother is . Father is still alive. His parents were when he was 13 years old. He does have an older sister, 1 younger sister and 3 brothers. He states 1 brother is in an automobile accident. He does state his brother that is had a diagnosis of bipolar disorder and was manic at the time of the accident. He does state his childhood being happy; however, he states that his parents fought a lot while growing up. He denies any sexual or physical abuse while growing up. MENTAL STATUS EXAMINATION: This is a 53-year-old white male who comes to the interview process cooperative. He shows fair grooming and hygiene. He has good eye contact throughout the interview. He has no psychomotor agitation. His affect is somewhat constricted. His mood he describes as being depressed and anxious. His speech is regular rate and rhythm. Thought process is logical and goal directed. He has no looseness of association or flight of ideas. Fund of vocabulary is within normal limits. Content of thought: He denies any suicidal or homicidal ideations but later states that he is having some passive suicidal ideations. Denies any auditory or visual hallucinations, delusional thinking. His insight and judgment are poor. He is alert and oriented x3. He has average intelligence. Cognitive and memory functions are intact. Station, gait and coordination are all within normal limits. DIAGNOSES: [place] I: Major depressive disorder, recurrent, severe without psychotic features. Benzodiazepine dependency and possible alcohol abuse. [place] II: Deferred. [place] III: As per Internal Medicine. [place] IV: Poor insight into his mental health issues. [place] V: GAF: 40. PLAN AND RECOMMENDATIONS: At this time will adjust his antidepressant medications. Will take him off his Ativan with a phenobarbital taper. Will use Seroquel to help control his anxiety. Will get the patient connected with outpatient psychiatry and therapy. Electronically signed on 03/30/2009 22:52 by BLAS CATES DO MT: niecy Name: JETT GEORGES Account: [id number] : 1955 Admitted: [id number] Document: [id number] CLEANING CHECKER documented in this encounter Plan of Treatment Not on filedocumented as of this encounter Visit Diagnoses Not on filedocumented in this encounter
--- OUTSIDE RECORDS SUMMARY | 2021-12-27 11:08 | XMS_ITS | Encounter Summary ---
:1955 Author Organization [place] Address [address] [place] [address] Care Team Providers Name Role Phone Unavailable Primary Care Provider Unavailable Encounter Details Date Type Department Care Team Description 03/04/2009 Historic Results [facility] EugenioShukri [facility] [address] [place] [address] (Wo rk) Social History Tobacco Use Types Packs/Day Years Used Date Never Assessed Sex Assigned at Date Recorded Not on file documented as of this encounter Plan of Treatment Not on filedocumented as of this encounter Procedures Procedure Name Priority Date/Time Associated Comments Diagnosis GLUCOSE BY METER Routine 03/04/2009 5:36 PM Resul ts for this CDT procedure are i n the results section. TSH WITH FREE T4 Routine 03/04/2009 8:46 AM Resul ts for this REFLEX CDT procedure are i n the results section. GGT Routine 03/04/2009 8:46 AM Results f or this CDT procedure are i n the results section. COMPREHENSIVE Routine 03/04/2009 8:46 AM Results for this METABOLIC PANEL CDT procedure ar e in the results section. VITAMIN B12 Routine 03/04/2009 8:46 AM Results f or this CDT procedure are i n the results section. documented in this encounter Results (ABNORMAL) Glucose by meter (03/04/2009 5:36 PM CDT) P athologist Signature Glucose 179 (H) 60 - 99 [place] mg/dL Specimen Anatomical Collection Method Collection Time Receive d Time (Source) Location / / Volume Laterality 03/04/2009 5:36 PM 9 CDT 12:15 AM CDT Shukri Becker DO LAB - BEAKER POCT Performing Organization Address City/State/ZIP Code Phon e Number [facility] (ABNORMAL) Comprehensive metabolic panel (03/04/2009 8:46 AM CDT) P athologist Signature Sodium 138 133 - 144 [place] mmol/L Potassium 4.1 3.4 - 5.3 [facility] mmol/L Chloride 102 94 - 109 [place] mmol/L Carbon Dioxide 27 20 - 32 [place] mmol/L Glucose 210 (H) 60 - 99 [place] mg/dL Urea Nitrogen 11 7 - 30 [facility] mg/dL Creatinine 0.90 0.66 - [facility] 1.25 mg/dL Comment: New IDMS-traceable calibration beginning 09/18/07 GFR Estimate 88 >60 mL/min/1.7m2 [facility] GFR Estimate If Black >90 >60 mL/min/1.7m2 [facility] Calcium 9.5 8.5 - 10.4 mg/dL [facility] AST 38 0 - 55 U/L [facility] Protein Total 8.1 6.8 - 8.8 g/dL [facility] Anion Gap 8.5 6 - 17 mmol/L [facility] Albumin 4.5 3.9 - 5.1 g/dL [facility] ALT 27 0 - 70 U/L [facility] Alkaline Phosphatase 73 40 - 150 U/L [facility] Bilirubin Total 0.5 0.2 - 1.3 mg/dL [facility] Specimen Anatomical Collection Method Collection Time Receive d Time (Source) Location / / Volume Laterality 03/04/2009 8:46 AM 9 6:14 CDT PM CDT Caryl Denise DO LAB - BLOOD ORDERABLES Performing Organization Address City/State/ZIP Code Phon e Number [place] TSH with free T4 reflex (03/04/2009 8:46 AM CDT) P athologist Signature TSH 2.80 0.4 - 5.0 [place] mU/L Specimen Anatomical Collection Method Collection Time Receive d Time (Source) Location / / Volume Laterality 03/04/2009 8:46 AM 9 6:14 CDT PM CDT Caryl Denise DO LAB - BLOOD ORDERABLES Performing Organization Address City/State/ZIP Code Phon e Number [place] GGT (03/04/2009 8:46 AM CDT) P athologist Signature GGT 48 0 - 75 U/L [place] Specimen Anatomical Collection Method Collection Time Receive d Time (Source) Location / / Volume Laterality 03/04/2009 8:46 AM 9 6:14 CDT PM CDT Caryl Denise DO LAB - BLOOD ORDERABLES Performing Organization Address City/[facility] Code Phon e Number [place] Vitamin B12 (03/04/2009 8:46 AM CDT) athologist Signature Vitamin B12 331 >210 pg/mL [place] Comment: Interp: [id number] = Normal Specimen Anatomical Collection Method Collection Time Receive d Time (Source) Location / / Volume Laterality 03/04/2009 8:46 AM 9 1:01 CDT PM CDT Caryl Denise DO LAB - BLOOD ORDERABLES Performing Organization Address City/State/ZIP Code Phon e Number [place] documented in this encounter Visit Diagnoses Not on filedocumented in this encounter
--- OUTSIDE RECORDS SUMMARY | 2021-12-27 11:08 | XMS_ITS | Encounter Summary ---
:1955 Author Organization [place] Address [address] [place] [address] Care Team Providers Name Role Phone Unavailable Primary Care Provider Unavailable Encounter Details Date Type Department Care Team Description 03/05/2009 Historic Notes INTERFACED REPORT David Minaya MD [facility] [address] [facility] [place] [place] [address] (Wo rk) Social History Tobacco Use Types Packs/Day Years Used Date Never Assessed Sex Assigned at Date Recorded Not on file documented as of this encounter Progress Notes Graciela Minaya MD - 08/05/2010 5:40 PM CDT Interval History - Interval History: I was asked by the patient's RN to evaluate the rash and discharge behind his ears that was noted today after his shower. He states it does not itch and the discharge has been present on an intermittent basis for approximately a year. Exam- clear discharge behind both ears with areas of mild erythema near the areas of discharge. No pus seen Vital Signs/Labs/Imaging/Culture Review - Vital Signs: Vital Signs reviewed past 24 hours. Assessment and Plan - Assessment/Plan: 1. Chronic dermatits behind bilateral ears-I will start TMC 0.1% cream tid x10 days. Signatures GRACIELA MINAYA)[Signed 15:03] Authored: Interval History, Vital Signs/Labs/Imaging/Culture Review, Assessment and Plan documented in this encounter Plan of Treatment Not on filedocumented as of this encounter Visit Diagnoses Not on filedocumented in this encounter
--- OUTSIDE RECORDS SUMMARY | 2021-12-27 11:08 | XMS_ITS | Encounter Summary ---
:1955 Author Organization [place] Address [facility] [place] [address] Care Team Providers Name Role Phone Mario Keith MD Primary Care Provider [phone] Encounter Details Date Type Department Care Team Description 07/20/2020 Telephone [facility] [address] [place] [address] Social History Tobacco Use Types Packs/Day Years Used Date Former Smoker Smokeless Tobacco: Never Used Alcohol Use Standard Drinks/Week Comments Yes 3 (1 standard drink = 0.6 oz pure Alcoho lic Drinks/day: none in last alcohol) week, usual 4-5 beer s a day Sex Assigned at Date Recorded Not on file documented as of this encounter Miscellaneous Notes Telephone Encounter - Shanti Dunham - 07/21/2020 12:53 PM CST I called the patient back to discuss revision. Patient has weight regain and was wondering if he could have the band on top of his bypass. I let the patient know that we do not revise the Bypass for weight gain and that we do not offer the Lapband. I let the patient know that we have Medical weight management available and we could schedule him for that. Patient not interested in MWM at this time. Patient will call back if he changes his mind. SERVICE TECHNICIAN Telephone Encounter - Toni Aponte - 07/20/2020 3:53 PM CST Wero Moser, Pt had bypass 2007 (said at our system, but I don't see here or HE). He's heard that he can get a lap band on top of it... I explained the unlikeliness of that. But also that you might discuss a revision. bmi 40.4 OK to leaved detailed VM SERVICE TECHNICIAN documented in this encounter Plan of Treatment Not on filedocumented as of this encounter Visit Diagnoses Not on filedocumented in this encounter Care Teams Cafe Attendant Relationship Specialty Start Date End Date Mario Keith MD PCP - General Internal Medicine 11/28/17 [facility] [address] [place] [address] documented as of this encounter
--- OUTSIDE RECORDS SUMMARY | 2021-12-27 11:08 | XMS_ITS | Encounter Summary ---
:1955 Author Organization [place] Address [address] [place] [address] Care Team Providers Name Role Phone Unavailable Primary Care Provider Unavailable Encounter Details Date Type Department Care Team Description 03/04/2009 Historic Notes INTERFACED REPORT David Minaya MD [facility] [address] [place] [address] (Wo rk) Social History Tobacco Use Types Packs/Day Years Used Date Never Assessed Sex Assigned at Date Recorded Not on file documented as of this encounter Progress Notes Graciela Minaya MD - 08/05/2010 5:44 PM CDT ATTENDING PHYSICIAN - Attending Note: I examined the patient and discussed the case with the physician judicial administrative assistant student who is severing as a scribe for me. The patient is medically stable. Please see the dictation on [facility]IS for the complete consult. The patient's diabetes type 2 is under treatment. I started the patient on nuerontin to treat his pain that appears to be in part neuropathic causes. In addition, I ordered that a B12 shot be given for the patient since he has not been receiving b12 after his gastric bypass. He was instructed to follow up with his regular MD to continue b12 suppliments. Signatures GRACIELA MINAYA)[Signed 14:26] Authored: ATTENDING PHYSICIAN Graciela Minaya MD - 08/05/2010 5:43 PM CDT ATTENDING PHYSICIAN - Attending Note: I discussed the patient's case with Amada Jean Baptiste from the pain team and I thought the patient could be seen on Saturday by the pain team to determine if the nuerotin had improve his chronic pain. Signatures GRACIELA MINAYA)[Signed 15:08] Authored: ATTENDING PHYSICIAN documented in this encounter Plan of Treatment Not on filedocumented as of this encounter Visit Diagnoses Not on filedocumented in this encounter
--- OUTSIDE RECORDS SUMMARY | 2021-12-27 11:08 | XMS_ITS | Encounter Summary ---
:1955 Author Organization [place] Address [facility] [place] [address] Care Team Providers Name Role Phone Unavailable Primary Care Provider Unavailable Encounter Details Date Type Department Care Team Description 03/07/2009 Historic Notes INTERFACED REPORT David Minaya MD [facility] [address] [facility] [place] [place] [address] (Wo rk) Social History Tobacco Use Types Packs/Day Years Used Date Never Assessed Sex Assigned at Date Recorded Not on file documented as of this encounter Progress Notes Graciela Minaya MD - 08/05/2010 5:36 PM CDT Interval History - Interval History: I followed up with the patient to check on his ear rash. He states the ear rash is improving, but he has a facial rash that started after admission. PE face- erythema present with mild pimples seen on face Vital Signs/Labs/Imaging/Culture Review - Vital Signs: Vital Signs reviewed past 24 hours. - Lab Results: All lab results reviewed past 24 hours. Assessment and Plan - Assessment/Plan: 1. Ear dermatitis-improving 2. Facial acne-mild. Will treat with clindamycin gel bid x6 days. Signatures GRACIELA MINAYA)[Signed 11:20] Authored: Interval History, Vital Signs/Labs/Imaging/Culture Review, Assessment and Plan documented in this encounter Plan of Treatment Not on filedocumented as of this encounter Visit Diagnoses Not on filedocumented in this encounter
--- OUTSIDE RECORDS SUMMARY | 2021-12-27 11:08 | XMS_ITS | Encounter Summary ---
:1955 Author Organization [place] Address [address] [place] [address] Care Team Providers Name Role Phone Unavailable Primary Care Provider Unavailable Encounter Details Date Type Department Care Team Description 03/07/2009 Historic Results [facility] [address] [place] [address] (Wo rk) Social History Tobacco Use Types Packs/Day Years Used Date Never Assessed Sex Assigned at Date Recorded Not on file documented as of this encounter Plan of Treatment Not on filedocumented as of this encounter Procedures Procedure Name Priority Date/Time Associated Diagnosis Comme nts GLUCOSE BY METER Routine 03/07/2009 8:23 AM Resul ts for this CDT procedure are i n the results section. documented in this encounter Results (ABNORMAL) Glucose by meter (03/07/2009 8:23 AM CDT) P athologist Signature Glucose 146 (H) 60 - 99 MISYS mg/dL Specimen Anatomical Collection Method Collection Time Receive d Time (Source) Location / / Volume Laterality 03/07/2009 8:23 AM 9 8:31 CDT AM CDT Shukri PATEL POCT Performing Organization Address City/State/ZIP Code Phon e Number MISYS documented in this encounter Visit Diagnoses Not on filedocumented in this encounter
--- OUTSIDE RECORDS SUMMARY | 2021-12-27 11:08 | XMS_ITS | Encounter Summary ---
:1955 Author Organization [place] Address [facility] [place] [address] Care Team Providers Name Role Phone Unavailable Primary Care Provider Unavailable Encounter Details Date Type Department Care Team Description 11/12/2007 Historic Notes INTERFACED REPORT Interface, Transcript onMD Social History Tobacco Use Types Packs/Day Years Used Date Never Assessed Sex Assigned at Date Recorded Not on file documented as of this encounter Progress Notes Interface, [employer] - 08/06/2010 8:24 PM CDT BARIATRIC PROGRESS NOTE - 2 WEEK POST OP DATE OF VISIT: 11-12-07 WEIGHT: 283.3# DIETARY HABITS: Has been eating watermelon. No nausea/vomiting. Wants to advance diet. Taking [place]inestone with iron but hasn'r started other vitamins. GOALS: Start puree diet at day 21 post op Increase to solids at day 42 post op Start MVI with iron, calcium with vitamin D, B12 Aim for 60 to 70 grams protein Continue 48 to 64 oz of fluid per day Nutrition class at 4 to 6 week post op Follow up at 3 months post op ADDITIONAL GOALS: Follow diet progression. TIME SPENT WITH PATIENT: 20 minutes [Signature] Author: CHIDI HIGH (MEd, RD, LD) [Signed 12:14] documented in this encounter Plan of Treatment Not on filedocumented as of this encounter Visit Diagnoses Not on filedocumented in this encounter
--- OUTSIDE RECORDS SUMMARY | 2021-12-27 11:08 | XMS_ITS | Encounter Summary ---
:1955 Author Organization [place] Address [facility] [place] [address] Care Team Providers Name Role Phone Mario Keith MD Primary Care Provider [phone] Encounter Details Date Type Department Care Team Description 06/20/2012 Abstract [facility] Weight Erica Rodriguez, [facility] Ed lexsi PA-C [address] [place] [address] [place] [id number] [phone] Social History Tobacco Use Types Packs/Day Years Used Date Never Assessed Sex Assigned at Date Recorded Not on file documented as of this encounter Plan of Treatment Not on filedocumented as of this encounter Visit Diagnoses Not on filedocumented in this encounter Care Teams Fiction And Nonfiction Writer Prose Relationship Specialty Start Date End Date Mario Keith MD PCP - General Internal Medicine 11/28/17 [facility] [address] [place] [address] documented as of this encounter
--- OUTSIDE RECORDS SUMMARY | 2021-12-27 11:08 | XMS_ITS | Encounter Summary ---
:1955 Author Organization [place] Address [address] [place] [address] Care Team Providers Name Role Phone Unavailable Primary Care Provider Unavailable Encounter Details Date Type Department Care Team Description 03/08/2009 Historic Results [facility] [address] [address] [facility] [address] [place] [address] (Wo rk) Social History Tobacco Use Types Packs/Day Years Used Date Never Assessed Sex Assigned at Date Recorded Not on file documented as of this encounter Plan of Treatment Not on filedocumented as of this encounter Procedures Procedure Name Priority Date/Time Associated Diagnosis Comme nts GLUCOSE BY METER Routine 03/08/2009 8:08 AM Resul ts for this CDT procedure are i n the results section. documented in this encounter Results (ABNORMAL) Glucose by meter (03/08/2009 8:08 AM CDT) P athologist Signature Glucose 161 (H) 60 - 99 MISYS mg/dL Specimen Anatomical Collection Method Collection Time Receive d Time (Source) Location / / Volume Laterality 03/08/2009 8:08 AM 9 8:15 CDT AM CDT Shukri PATEL POCT Performing Organization Address City/State/ZIP Code Phon e Number MISYS documented in this encounter Visit Diagnoses Not on filedocumented in this encounter
--- OUTSIDE RECORDS SUMMARY | 2021-12-27 11:08 | XMS_ITS | Encounter Summary ---
:1955 Author Organization [place] Address [address] [facility] [place] [address] Care Team Providers Name Role Phone Mario Keith MD Primary Care Provider [phone] Encounter Details Date Type Department Care Team Description 11/28/2017 - Hospital Encounter [facility], Prim keya osteoarthritis 11/29/2017 [facility], [address] [facility] [place], [place] [address] [facility] [id number] [address] [address] [place], [place] [id number] Social History Tobacco Use Types Packs/Day Years Used Date Former Smoker Smokeless Tobacco: Never Used Alcohol Use Standard Drinks/Week Comments Yes 3 (1 standard drink = 0.6 oz pure Alcoho lic Drinks/day: none in last alcohol) week, usual 4-5 beer s a day Sex Assigned at Date Recorded Not on file documented as of this encounter Last Filed Vital Signs Vital Sign Reading Time Taken Comments Blood Pressure - - Pulse - - Temperature - - Respiratory Rate - - Oxygen Saturation - - Inhaled Oxygen Concentration - - Weight 123.4 kg (272 lb) 11/28/2017 2:50 PM CDT stated Height 180.3 cm (5' 11) 11/28/2017 2:50 PM CDT Body Mass Index 37.94 11/28/2017 2:50 PM CDT documented in this encounter Discharge Summaries Marion Romano PA-C - 11/29/2017 1:12 PM CDT Orthopedic Discharge Summary Leandro Curiel, 1955, Admission Date: 11/28/2017 Admission Diagnoses: Osteoarthritis of knee [M17.10] Discharge Date: 11/29/2017 Post-operative Day: 1 Day Post-Op Reason for Admission: The patient was admitted for the following: BILATERAL MEDIAL UNICOMPARTMENTAL ARTHROPLASTY (Bilateral) Brief Hospital Course: This 62 y.o. male underwent the aforementioned procedure with Dr. Arenas on 11/28/2017. There were no intraoperative complications and the patient was transferred to the recovery room and later the orthopedic unit in stable condition. Once the patient reached the orthopedic floorour orthopedic pain protocol was implemented along with the following: Therapy: Physical Therapy and Occupational Therapy Anticoagulation Medications: Aspirin Complications during admission: None Consultations during admission: Hospitalist service for medical management none Pertinent Results at Discharge: Hemoglobin Date/Time Value Ref Range Status 11/29/2017 06:17 AM 10.3 (L) 14.0 - 18.0 g/dL Final 11/28/2017 07:46 AM 10.9 (L) 14.0 - 18.0 g/dL Final Platelets Date/Time Value Ref Range Status 11/29/2017 06:17 AM 177 140 - 440 thou/uL Final 11/28/2017 07:46 AM 221 140 - 440 thou/uL Final Vitals: 11/29/17 1035 BP: 146/81 Pulse: 70 Resp: 16 Temp: 98 ??F (36.7 ??C) SpO2: 97% Active Problems: Essential hypertension DM2 (diabetes mellitus, type 2) (H) STEVEN (obstructive sleep apnea) Discharge Information: Condition at discharge: good Discharge destination: Home or Self Care Medications at discharge: Leandro Curiel Home Medication Instructions JESUSITA:[id number] Printed on:11/29/17 1430 Medication Information acetaminophen (TYLENOL) 325 MG tablet Take 2 tablets (650 mg total) by mouth every 4 (four) hours as needed. aspirin 325 MG tablet Take 1 tablet (325 mg total) by mouth 2 (two) times a day with meals. cyclobenzaprine (FLEXERIL) 10 MG tablet Take 10 mg by mouth at bedtime as needed for muscle spasms. docusate sodium (COLACE) 100 MG capsule Take 1 capsule (100 mg total) by mouth 2 (two) times a day. gabapentin (NEURONTIN) 300 MG capsule Take 600 mg by mouth 3 (three) times a day. hydroCHLOROthiazide (HYDRODIURIL) 25 MG tablet Take 1 tablet (25 mg total) by mouth daily. lisinopril (PRINIVIL,ZESTRIL) 10 MG tablet Take 10 mg by mouth daily. LORazepam (ATIVAN) 1 MG tablet Take 1 mg by mouth 3 (three) times a day as needed for anxiety. metFORMIN (GLUCOPHAGE) 500 MG tablet Take 500 mg by mouth 2 (two) times a day with meals. omeprazole (PRILOSEC) 40 MG capsule Take 40 mg by mouth daily before breakfast. oxyCODONE (ROXICODONE) 5 MG immediate release tablet Take 1-2 tablets (5-10 mg total) by mouth every 4 (four) hours as needed. polyethylene glycol (MIRALAX) 17 gram packet Take 1 packet (17 g total) by mouth daily. QUEtiapine (SEROQUEL) 200 MG tablet Take 200 mg by mouth at bedtime. sildenafil (VIAGRA) 50 MG tablet Take 50 mg by mouth daily as needed for erectile dysfunction. simvastatin (ZOCOR) 20 MG tablet Take 20 mg by mouth at bedtime. traZODone (DESYREL) 100 MG tablet Take 0.5-1 tablets (50-100 mg total) by mouth at bedtime as needed for sleep. 50 mg AM, 100 mg HS Activity: WBAT Follow-up Care: The patient will be followed in our office in 2 weeks or sooner should the need arise. Patient should follow up with their PCP as directed. Patient was seen by me on the date of discharge. Marion Romano Date: 11/29/2017 Time: 2:30 PM documented in this encounter Medications at Time of Discharge Medication Sig Dispensed Refills Start Date End Date Esomeprazole Magnesium (NEXIUM Take by mouth. 0 03/03/2021 PO) Ursodiol (ACTIGALL PO) Take by mouth. 0 03/03/2021 documented as of this encounter Progress Notes Marion Romano PA-C - 11/29/2017 11:21 AM CDT ORTHOPEDIC L/E PROGRESS NOTE Procedure(s): BILATERAL MEDIAL UNICOMPARTMENTAL ARTHROPLASTY on 11/28/2017. 1 Day Post-Op PAIN: mild NAUSEA: no Had a lot of pain this morning, much better now. Was able to participate in therapy without issue. Had trouble urinating last night, has not had any trouble since. Would like to go home. Temp: [97.3 ??F (36.3 ??C)-98.6 ??F (37 ??C)] 98 ??F (36.7 ??C) Heart Rate: [52-85] 70 Resp: [11-20] 16 BP: (140-212)/(69-112) 146/81 Lab Results Component Value Date HGB 10.3 (L) 11/29/2017 HGB 10.9 (L) 11/28/2017 EXAM The patient is awake and alert. Calves are soft and non-tender. Sensation is intact. Dorsiflexion and plantar flexion is intact. Dorsalis pedis pulses intact. The incision is covered. Dressing C/D/I ASSESSMENT POD #1 s/p bilateral unicompartmental arthroplasty on 11/28/[address] Arenas PLAN Anticoagulation addressed - ASA 325 mg two times a day in addition to SCDs and early ambulation Continue with PT, OT. Plan for Discharge: Home with OPPT today if pain continues to be well controlled with oral pain medication Mairon Romano PA-C [facility] Maria E Russo MD - 11/29/2017 8:06 AM CDT Progress Note Assessment/Plan Essential hypertension Received Lisinopril 20 mg today ( higher dose) BP is in higher side likely pain and anxiety related Resume lisinopril 10 mg daily, hydrochlorothiazide 25 mg daily added Follow-up with pmd in 10-14 days ?? Diabetic mellitus type II Diabetic diet Resume metformin 500 mg twice a day ?? Dysliipidemia Resume simvastatin 20 mg daily ?? GERD Resume PPI ?? Peripheral neuropathy Resume gabapentin 600 mg 3 times a day ?? Anxiety disorder Resume Lorazepam 1 mg 3 times a day as needed Resume Seroquel 200 mg at bedtime Trazodone 50-100 mg at bedtime as needed ?? Obstructive sleep apnea Compliant with CPAP use ?? Status post bilateral knee medial unicompartmental arthroplasty Resume routine postoperative care DVT prophylaxis per orthopedics, aspirin 325 mg twice a day Physical and Occupational Therapy Use incentive spirometry frequently Had acute pain. Received IV Toradol 30 mg once. Pain is much improved Pain control with Tylenol 650 mg every 4 hours as needed, Oxycodone 5-10 mg every 4 hours as needed at home Subjective Mr. Curiel is a 62 years old male had bilateral medial unicompartmental knee arthroplasty. Had significant knee pain in the morning. He was quite anxious. Received IV Toradol 30 mg once, Ativan 1 mg once. Pain and anxiety are much improved afterwards. Denies headache, chest pain, breathing difficulty, palpitation, nausea, vomiting, abdominal pain or urinary symptoms. Objective Vital signs in last 24 hours Temp: [97.3 ??F (36.3 ??C)-98.6 ??F (37 ??C)] 97.6 ??F (36.4 ??C) Heart Rate: [52-85] 85 Resp: [11-23] 18 BP: (140-212)/(69-112) 212/109 Weight: (!) 272 lb (123.4 kg) Intake/Output last 3 shifts I/O last 3 completed shifts: In: 2503.8 [P.O.:240; I.V.:2263.8] Out: 3200 [Urine:3150; Blood:50] Intake/Output this shift: I/O this shift: In: - Out: 700 [Urine:700] Review of Systems Rest of the review of system are negative except HPI Physical Exam BP (!) 212/109 (Patient Position: Semi-alston) Pulse 85 Temp 97.6 ??F (36.4 ??C) (Oral) Resp 18 Ht 5' 11 (1.803 m) Wt (!) 272 lb (123.4 kg) Comment: stated SpO2 97% BMI 37.94 kg/m2 General Appearance: Alert, cooperative, no distress, appears stated age Head: Normocephalic, atraumatic Eyes: PERRL, conjunctiva clear, EOM's intact Nose: Nares normal, no drainage or sinus tenderness Throat: Lips, mucosa, gums normal Neck: Supple, symmetrical, no carotid bruit or JVD Back: Symmetric, no CVA tenderness Lungs: Clear to auscultation bilaterally, respirations unlabored Chest wall: No tenderness or deformity Heart: Regular rate and rhythm, S1 and S2 normal Abdomen: Soft, non-tender, bowel sounds active, no masses, no organomegaly Extremities: Status post bilateral knee unicompartmental arthroplasty Pulses: 2+ and symmetric all extremities Skin: no rashes or lesions Neurologic: CNII-XII intact. Pertinent Labs Lab Results: personally reviewed. Lab Results Component Value Date NA 134 (L) 11/29/2017 K 4.5 11/29/2017 CL 99 11/29/2017 CO2 27 11/29/2017 BUN 7 (L) 11/29/2017 CREATININE 0.78 11/29/2017 CALCIUM 8.8 11/29/2017 Lab Results Component Value Date WBC 7.7 11/29/2017 HGB 10.3 (L) 11/29/2017 HCT 30.9 (L) 11/29/2017 MCV 85 11/29/2017 PLT 177 11/29/2017 MEDICATIONS: Scheduled Meds: ??? acetaminophen 1,000 mg Oral TID ??? aspirin 325 mg Oral BID with meals ??? docusate sodium 100 mg Oral BID ??? gabapentin 600 mg Oral TID ??? insulin aspart (NovoLOG) injection Subcutaneous TID with meals ??? ketorolac 30 mg Intravenous Once ??? lisinopril 20 mg Oral DAILY ??? omeprazole 40 mg Oral QAM AC ??? oxyCODONE 5 mg Oral Q4H ??? polyethylene glycol 17 g Oral DAILY ??? QUEtiapine 200 mg Oral QHS ??? senna-docusate 1 tablet Oral BID ??? simvastatin 20 mg Oral QHS ??? tamsulosin 0.4 mg Oral Daily after supper PRN Meds:.acetaminophen, aluminum-magnesium hydroxide-simethicone, bisacodyl, cyclobenzaprine, dextrose 50 % (D50W), glucagon (human recombinant), HYDROmorphone, HYDROmorphone, HYDROmorphone, hydrOXYzine pamoate OR hydrOXYzine, loratadine, LORazepam, LORazepam, metoclopramide OR metoclopramideOR metoclopramide, naloxone OR naloxone, ondansetron, ondansetron, oxyCODONE, sodium phosphates 133 mL Active Problems: Essential hypertension DM2 (diabetes mellitus, type 2) (H) STEVEN (obstructive sleep apnea) Total time spent 35 min Maria E Russo MD. [facility][1] medicine service Selam Overton RT - 11/28/2017 3:13 PM CDT 11/28/17 1512 NPPV Other SpO2 96 % CPAP CPAP Pt. Owned Device Yes;Clean;Functional (does not bleed in oxygen or use humidity, home unit ) CPAP Pressure (cmH2O) (home settings ) CPAP O2 (L/min or FiO2) 21 Chaz Colindres [facility] - 11/28/2017 8:08 AM CDT Pharmacy Note - Admission Medication History Pertinent Provider Information: N/A Prior To Admission (BIBLE READER) med list completed and updated in EMR. [facility] Med List Medication Sig Note Last Dose ??? aspirin 81 mg chewable tablet Chew 81 mg daily. 11/18/2017 ??? cyclobenzaprine (FLEXERIL) 10 MG tablet Take 10 mg by mouth at bedtime as needed for muscle spasms. Unknown at Unknown time ??? gabapentin (NEURONTIN) 300 MG capsule Take 600 mg by mouth 3 (three) times a day. 11/28/2017 at am ??? lisinopril (PRINIVIL,ZESTRIL) 10 MG tablet Take 10 mg by mouth daily. 11/27/2017 at am ??? LORazepam (ATIVAN) 1 MG tablet Take 1 mg by mouth 3 (three) times a day as needed for anxiety. 11/28/2017 at am ??? metFORMIN (GLUCOPHAGE) 500 MG tablet Take 500 mg by mouth 2 (two) times a day with meals. 11/28/2017 at am ??? omeprazole (PRILOSEC) 40 MG capsule Take 40 mg by mouth daily before breakfast. 11/28/2017 at am ??? QUEtiapine (SEROQUEL) 200 MG tablet Take 200 mg by mouth at bedtime. 11/27/2017 at pm ??? sildenafil (VIAGRA) 50 MG tablet Take 50 mg by mouth daily as needed for erectile dysfunction. Unknown at Unknown time ??? simvastatin (ZOCOR) 20 MG tablet Take 20 mg by mouth at bedtime. 11/27/2017 at pm ??? traMADol (ULTRAM) 50 mg tablet Take 50-100 mg by mouth every 6 (six) hours as needed for pain. Unknown at Unknown time ??? traZODone (DESYREL) 100 MG tablet Take 50-100 mg by mouth 4 (four) times a day as needed for sleep. 50 mg AM, 100 mg HS 11/28/2017: Takes 50mg AM and 100 mg HS 11/28/2017 at am 50mg Information source(s): [facility] Patient was asked about OTC/herbal products specifically. [facility] med list reflects this. Based on the pharmacist???s assessment, the [facility] med list information appears reliable Allergies were reviewed, assessed, and updated with the patient. Patient does not use any multi-dose medications prior to admission. Thank you for the opportunity to participate in the care of this patient. Chaz Neil, Vincent 11/28/2017 8:08 AM documented in this encounter H&P Notes Jennifer Arenas MD - 11/28/2017 9:16 AM CDT I have performed an assessment and examined the patient, as necessary, to update the patient's current status that may have changed since the prior History and Physical. The History & Physical has been reviewed and the patient's status is unchanged. Jennifer Arenas MD - 11/28/2017 9:16 AM CDT I have performed an assessment and examined the patient, as necessary, to update the patient's current status that may have changed since the prior History and Physical. The History & Physical has been reviewed and the patient's status is unchanged. documented in this encounter Consult Notes Maria E Russo MD - 11/28/2017 3:39 PM CDT Consultation - for htn, dm2 Leandro Curiel, 1955, [facility] Pr[facility] Osteoarthritis of knee [M17.10] PCP: Mario Keith MD, Code status: Full Code Extended Emergency Contact Information Primary Emergency Contact: Alisson Curiel [facility] Relation: [id number] Secondary Emergency Contact: Ervin Conner [facility] Relation: Child Assessment and Plan Essential hypertension Resume Lisinopril 10 mg daily Patient is in higher side Hold antihypertensive if systolic blood pressure is less than 110 as risk of postop hypotension Diabetic mellitus type II Diabetic diet, insulin sliding scale Metformin is on hold Dysliipidemia Resume simvastatin 20 mg daily GERD Resume PPI Peripheral neuropathy Resume gabapentin 600 mg 3 times a day Anxiety disorder Resume Lorazepam 1 mg 3 times a day as needed Resume Seroquel 200 mg at bedtime Obstructive sleep apnea Compliant with CPAP use Status post bilateral knee medial unicompartmental arthroplasty Resume routine postoperative care DVT prophylaxis per orthopedics, aspirin 325 mg twice a day Physical and Occupational Therapy Use incentive spirometry frequently Pain controlled with Tylenol 1000 mg 3 times a day, oxycodone 5 mg every 4 hours, p.o. Dilaudid 2-4 mg every 3 hours as needed, IV Dilaudid 0.3-0.6 mg every 3 hours as needed Chief Complaint bilateral unicompartmental knee arthroplasty HPI We have been requested by orthopedics/ Dr. Jennifer Arenas to evaluate Leandro Curiel for hypertention, diabetes mellitus type 2. The patient is a 62 y.o. year old history of hypertension, diabetes mellitus type 2, dyslipidemia, GERD, peripheral neuropathy, anxiety disorder had elective bilateralknee medial unicompartmental arthroplasty. Tolerated well. Knee pain is stable. Taking lisinopril 10mg daily for hypertension. Blood pressure is stable. On metformin 500 mg twice a day for diabetes mellitus type 2. Taking simvastatin 20 mg daily for dyslipidemia. On omeprazole for GERD. Taking gabapentin 600 mg 3 times a day for peripheral neuropathy. Has history of anxiety disorder. Stable and asymp tomatic now. Taking lorazepam 1 mg 3 times a day as needed and Seroquel 200 mg at bedtime. Obstructive sleep apnea. Compliant with CPAP use. Denies headache, chest pain, breathing difficulty, palpitation, nausea, vomiting, abdominal pain or urinary symptoms. Denies history of heart disease, lung disease, diabetes, stroke. Preop physical is reviewed. History is provided by the patient. Medical History There are no active non-hospital problems to display for this patient. Past Medical History: Diagnosis Date ??? Anxiety ??? Arthritis ??? Diabetes mellitus (H) ??? Headache disorder ??? Hypertension ??? Hypertriglyceridemia ??? Incomplete right bundle branch block ??? Peripheral neuropathy (H) ??? Sleep apnea Surgical History He has a past surgical history that includes Gastric bypass; Hernia repair; and Tonsillectomy. Social History Reviewed, and he reports that he has quit smoking. He has never used smokeless tobacco. He reports that he drinks about 1.8 oz of alcohol per week He reports that he does not use illicit drugs. Allergies No Known Allergies Family History Reviewed, positive family history of colon cancer Psychosocial Needs Social History Social History Narrative Additional psychosocial needs reviewed per nursing assessment. Prior to Admission Medications Prescriptions Prior to Admission Medication Sig Dispense Refill Last Dose ??? aspirin 81 mg chewable tablet Chew 81 mg daily. 11/18/2017 ??? cyclobenzaprine (FLEXERIL) 10 MG tablet Take 10 mg by mouth at bedtime as needed for muscle spasms. Unknown at Unknown time ??? gabapentin (NEURONTIN) 300 MG capsule Take 600 mg by mouth 3 (three) times a day. 11/28/2017 at am ??? lisinopril (PRINIVIL,ZESTRIL) 10 MG tablet Take 10 mg by mouth daily. 11/27/2017 at am ??? LORazepam (ATIVAN) 1 MG tablet Take 1 mg by mouth 3 (three) times a day as needed for anxiety. 11/28/2017 at am ??? metFORMIN (GLUCOPHAGE) 500 MG tablet Take 500 mg by mouth 2 (two) times a day with meals. 11/28/2017 at am ??? omeprazole (PRILOSEC) 40 MG capsule Take 40 mg by mouth daily before breakfast. 11/28/2017 at am ??? QUEtiapine (SEROQUEL) 200 MG tablet Take 200 mg by mouth at bedtime. 11/27/2017 at pm ??? sildenafil (VIAGRA) 50 MG tablet Take 50 mg by mouth daily as needed for erectile dysfunction. Unknown at Unknown time ??? simvastatin (ZOCOR) 20 MG tablet Take 20 mg by mouth at bedtime. 11/27/2017 at pm ??? traMADol (ULTRAM) 50 mg tablet Take 50-100 mg by mouth every 6 (six) hours as needed for pain. Unknown at Unknown time ??? traZODone (DESYREL) 100 MG tablet Take 50-100 mg by mouth 4 (four) times a day as needed for sleep. 50 mg AM, 100 mg HS 11/28/2017 at am 50mg Review of Systems: Constitutional: negative Eyes: negative for visual disturbance Ears, nose, mouth, throat, and face: negative for nasal congestion, sore throat Respiratory ROS: negative for - cough, shortness of breath, sputum changes or wheezing Cardiovascular ROS: negative for - chest pain, dyspnea on exertion, edema, palpitations Gastrointestinal: negative for constipation, diarrhea, nausea, reflux symptoms, vomiting Genitourinary:negative for dysuria, frequency, hematuria Hematologic/lymphatic: negative for easy bruising, lymphadenopathy Musculoskeletal: negative for back pain, muscle weakness, myalgias, neck pain Neurological: negative for dizziness, headaches, vertigo and weakness Behavioral/Psych: negative for anxiety, decreased appetite, depression Endocrine: negative for diabetic symptoms including increased fatigue Physical Exam: Temp: [97.3 ??F (36.3 ??C)-98.8 ??F (37.1 ??C)] 97.3 ??F (36.3 ??C) Heart Rate: [56-74] 74 Resp: [11-23] 20 BP: (140-185)/(71-94) 185/86 General Appearance: Alert, cooperative, no distress, appears stated age Head: Normocephalic, atraumatic Eyes: PERRL, conjunctiva clear, EOM's intact Nose: Nares normal, no drainage or sinus tenderness Throat: Lips, mucosa, gums normal Neck: Supple, symmetrical, no carotid bruit or JVD Back: Symmetric, no CVA tenderness Lungs: Clear to auscultation bilaterally, respirations unlabored Chest wall: No tenderness or deformity Heart: Regular rate and rhythm, S1 and S2 normal Abdomen: Soft, non-tender, bowel sounds active, no masses, no organomegaly Extremities: Bilateral knee surgery Pulses: 2+ and symmetric all extremities Skin: no rashes or lesions Neurologic: CNII-XII intact. Pertinent Labs Lab Results: personally reviewed. Lab Results Component Value Date WBC 6.6 11/28/2017 HGB 10.9 (L) 11/28/2017 HCT 32.4 (L) 11/28/2017 MCV 84 11/28/2017 PLT 221 11/28/2017 Total time spent 70 min Maria E Russo MD. [facility][1] medicine service. documented in this encounter Miscellaneous Notes Op Note - Jennifer Arenas MD - 11/28/2017 11:48 AM CDT Operative Report PATIENT: Leandro Curiel DATE OF SURGERY: 11/28/2017 SURGEON Jennifer Arenas MD. GI PHYSICIAN Joe Strickland PA-C (Expert AUDREY assist was required throughout for patient positioning, soft tissue retraction, appropriate use of knee instrumentation, and patient safety) PREOPERATIVE DIAGNOSIS bilateral knee osteoarthritis POSTOPERATIVE DIAGNOSIS bilateral knee osteoarthritis. PROCEDURE bilateral knee medial unicompartmental arthroplasty. ANESTHESIA Spinal SPECIMENS: none ESTIMATED BLOOD LOSS 25cc INDICATIONS Mr. Leandro Curiel is a pleasant 62 y.o.-year-old male with an ongoing history of increasing and progressive pain in the bilateral knee with increasing disability. X-rays have shown [id number] degenerative change in the medial compartment. Has tried and failed conservative management. After discussion regarding the risk and benefits of knee replacement patient elected to proceed. IMPLANTS RIGHT 1. Usha, PPK, femoral component, size 6 2. Usha, PPK, tibial component, size J. 3. Usha, PPK, all polyethylene articular surface 8 mm thickness. IMPLANTS LEFT 1. Usha, PPK, femoral component, size 6 . 2. Usha, PPK, tibial component, size J. 3. Usha, PPK, all polyethylene articular surface 8 mm thickness. PROCEDURE Once consent was obtained and the operative site marked in the preop holding area, the patient was brought to the operating room. Anesthesia was established without difficulty. All bony prominences andthe non-operative leg were padded appropriately. The bilateral legs were sterilely prepped and draped in the usual fashion after placement of a proximal tourniquet. The right limb was exsanguinated, the tourniquet inflated and a longitudinal incision made over the knee. Dissection was carried down through the extensor mechanism. A medial parapatellar arthrotomy was performed. The patella was luxed laterally and protected. Patellofemoral joint showed normal cartilage. Lateral side showed normal articular cartilage. An intramedullary guide was used in the femur. The distal femoral was made at 4 degrees. The femoralcutting block was applied and the rest of the femoral cuts completed. Attention was then turned to the tibia. This was cut using an extramedullary tibial cutting guide perpendicular to its mechanical axis. The trial tibial and femoral components were then placed and the knee reduced. The knee was copiously irrigated and all bony surfaces dried. Cement was mixed and all components were cemented and held until firm. The knee was again trialed. The Polyethylene was opened and snapped into place, the locking mechanism was ensured. The knee was copiously irrigated. A drain was placed out through the proximal lateral skin. The extensor mechanism was closed with # 1 interrupted Vicryl suture. Deep dermis was closed layer-wake[place] of # 2-0 interrupted inverted Vicryl sutures followed by running # 3-0 Monocryl in the skin. The left limb was then exsanguinated, the tourniquet inflated and a longitudinal incision made over the knee. Dissection was carried down through the extensor mechanism. A medial parapatellar arthrotomy was performed. The patella was luxed laterally and protected. Patellofemoral joint showed normal cartilage. Lateral side showed normal articular cartilage. An intramedullary guide was used in the femur. The distal femoral was made at 4 degrees. The femoralcutting block was applied and the rest of the femoral cuts completed. Attention was then turned to the tibia. This was cut using an extramedullary tibial cutting guide perpendicular to its mechanical axis. The trial tibial and femoral components were then placed and the knee reduced. The knee was copiously irrigated and all bony surfaces dried. Cement was mixed and all components were cemented and held until firm. The knee was again trialed. The Polyethylene was opened and snapped into place, the locking mechanism was ensured. The knee was copiously irrigated. A drain was placed out through the proximal lateral skin. The extensor mechanism was closed with # 1 interrupted Vicryl suture. Deep dermis was closed layer-[place] of # 2-0 interrupted inverted Vicryl sutures followed by running # 3-0 Monocryl in the skin. Dressings were applied. The patient tolerated the procedure well andwas returned to the postop recovery area in stable condition. JENNIFER ARENAS MD COMMENT: Jennifer Arenas COMMENT: Mario Keith MD documented in this encounter Plan of Treatment Not on filedocumented as of this encounter Procedures Procedure Name Priority Date/Time Associated Comments Diagnosis GLUCOSE BY METER Routine 11/29/2017 12:08 PM Resu lts for this POCT CDT procedure are i n the results section. GLUCOSE BY METER Routine 11/29/2017 7:03 AM Resul ts for this POCT CDT procedure are i n the results section. HEMOGLOBIN A1C Routine 11/29/2017 6:17 AM Results for this CDT procedure are i n the results section. CBC WITH PLATELETS Routine 11/29/2017 6:17 AM Res ults for this CDT procedure are i n the results section. BASIC METABOLIC Routine 11/29/2017 6:17 AM Result s for this PANEL CDT procedure are i n the results section. GLUCOSE BY METER Routine 11/28/2017 9:09 PM Resul ts for this POCT CDT procedure are i n the results section. GLUCOSE BY METER Routine 11/28/2017 4:59 PM Resul ts for this POCT CDT procedure are i n the results section. GLUCOSE BY METER Routine 11/28/2017 11:53 AM Resu lts for this POCT CDT procedure are i n the results section. CBC WITH PLATELETS Routine 11/28/2017 7:46 AM Res ults for this CDT procedure are i n the results section. EXTRA GREEN TOP Routine 11/28/2017 7:46 AM (LITHIUM HEPARIN) CDT TUBE GLUCOSE BY METER Routine 11/28/2017 7:45 AM Resul ts for this POCT CDT procedure are i n the results section. LAB RESULT - HIM 11/28/2017 SCAN EKG CARDIAC - HIM 11/28/2017 SCAN documented in this encounter Results Glucose by meter POCT (11/29/2017 12:08 PM CDT) P athologist Signature GLUCOSE BY 80 mg/dL 11/29/2017 [facility] METER POCT 12:08 PM CDT HOSPITAL POCT RESULTS Comment: Reference Ranges ? Age ?Normal ?Critical Values ? 0 day ?44-98 mg/d L ? <40 and >=400 mg/dL ? 1 day ?53-93 mg/d L ? <50 and >=400 mg/dL ? 2 day ?50-100 mg/ dL ?<50 and >=400 mg/dL ? 3 day ?62-110 mg/ dL ?<50 and >=400 mg/dL ? 4-7 day ?57-107 mg/d L ?<50 and >=400 mg/dL ? 8 d - 6 yr ? 69-115 mg/dL ?<50 and >=400 mg/dL ? 6 yr - 11 yr ?? 84-110 mg/dL ?<50 and >=400 mg/dL ? 11 yr - 16 yr ??79-116 mg/dL ?<50 and >=400 mg/dL ? > 16 yr ?70-125 mg/d L ?<60 and >=400 mg/dL Specimen Anatomical Collection Method Collection Time Receive d Time (Source) Location / / Volume Laterality Blood specimen 11/29/2017 12:08 8 (specimen) PM CDT 12:08 PM CDT Historical Provider LAB - ENTER/EDIT POCT Performing Organization Address City/State/ZIP Code Phon e Number [facility] POCT RESULTS [address] [facility] [address] [address] Glucose by meter POCT (11/29/2017 7:03 AM CDT) athologist Signature GLUCOSE BY 116 mg/dL 11/29/2017 [facility] METER POCT 7:03 AM CDT [facility] POCT RESULTS Comment: Reference Ranges ? Age ?Normal ?Critical Values ? 0 day ?44-98 mg/d L ? <40 and >=400 mg/dL ? 1 day ?53-93 mg/d L ? <50 and >=400 mg/dL ? 2 day ?50-100 mg/ dL ?<50 and >=400 mg/dL ? 3 day ?62-110 mg/ dL ?<50 and >=400 mg/dL ? 4-7 day ?57-107 mg/d L ?<50 and >=400 mg/dL ? 8 d - 6 yr ? 69-115 mg/dL ?<50 and >=400 mg/dL ? 6 yr - 11 yr ?? 84-110 mg/dL ?<50 and >=400 mg/dL ? 11 yr - 16 yr ??79-116 mg/dL ?<50 and >=400 mg/dL ? > 16 yr ?70-125 mg/d L ?<60 and >=400 mg/dL Specimen Anatomical Collection Method Collection Time Receive d Time (Source) Location / / Volume Laterality Blood specimen 11/29/2017 7:03 AM 018 7:04 (specimen) CDT AM CDT Historical Provider LAB - ENTER/EDIT POCT Performing Organization Address City/State/ZIP Code Phon e Number [facility] POCT RESULTS [address] [facility] N [address] Hemoglobin A1c (11/29/2017 6:17 AM CDT) P athologist Signature Hemoglobin A1C 6.0 4.2 - 6.1 11/29/2017 [facility] % 3:11 PM CDT [facility] Specimen Anatomical Collection Method / Collection Time Recei karin Time (Source) Location / Volume Laterality Blood specimen Venipuncture / 11/29/2017 6:17 11/30/19 18 9:36 (specimen) Unknown AM CDT AM CDT Maria E Russo MD LAB - BLOOD ORDERABLES Performing Organization Address City/State/ZIP Code Phon e Number [place] [address] [address] [facility] (ABNORMAL) CBC with platelets (11/29/2017 6:17 AM CDT) Patholo gist Method Time Signature WBC 7.7 4.0 - 11.0 11/29/2017 [facility] thou/uL 6:27 AM CDT [facility] RBC Count 3.65 (L) 4.40 - 11/29/2017 [facility] 6.20 6:27 AM CDT [facility] mill/uL [facility] Hemoglobin 10.3 (L) 14.0 - 11/29/2017 [facility] 18.0 g/dL 6:27 AM T [facility] Hematocrit 30.9 (L) 40.0 - 11/29/2017 HEALTH 54.0 % 6:27 AM T [facility] MCV 85 80 - 100 11/29/2017 [facility] fL 6:27 AM T [facility] MCH 28.2 27.0 - 11/29/2017 HEALTH 34.0 pg 6:27 AM T [facility] MCHC 33.3 32.0 - 11/29/2017 HEALTH 36.0 g/dL 6:27 AM T [facility] RDW 13.3 11.0 - 11/29/2017 [facility]ALTH 14.5 % 6:27 AM T [facility] Platelet Count 177 140 - 440 11/29/2017 [facility] thou/uL 6:27 AM T [facility] Mean Platelet 9.8 8.5 - 12.5 11/29/2017 [facility] Volume fL 6:27 AM [facility] Specimen Anatomical Collection Method / Collection Time Recei karin Time (Source) Location / Volume Laterality Blood specimen Venipuncture / 11/29/2017 6:17 11/30/19 18 6:22 (specimen) Unknown AM CDT AM CDT Maria E Russo MD LAB - BLOOD ORDERABLES Performing Organization Address City/State/ZIP Code Phon e Number [facility] [place] [address] Lab Daniel Howe [address] [place] [address] LABORATORY (ABNORMAL) Basic metabolic panel (11/29/2017 6:17 AM CDT) Analysis Performed At Patho logist Time Signature Sodium 134 (L) 136 - 145 11/29/2017 HEALTH mmol/L 6:42 AM CDT [facility] Potassium 4.5 3.5 - 5.0 11/29/2017 [facility] mmol/L 6:42 AM T [facility] Chloride 99 98 - 107 11/29/2017 [facility] mmol/L 6:42 AM T [facility] Carbon Dioxide 27 22 - 31 11/29/2017 [facility]ALTH (CO2) mmol/L 6:42 AM T [facility] Anion Gap 8 5 - 18 11/29/2017 [facility] mmol/L 6:42 AM T [facility] Glucose 122 70 - 125 11/29/2017 [facility] mg/dL 6:42 AM T [facility] Calcium 8.8 8.5 - 10.5 11/29/2017 [facility] mg/dL 6:42 AM [facility] Urea Nitrogen 7 (L) 8 - 22 11/29/2017 [facility] mg/dL 6:42 AM [facility] Creatinine 0.78 0.70 - 11/29/2017 [facility] 1.30 mg/dL 6:42 AM T [facility] GFR Estimate If >60 >60 11/29/2017 HEALTH Black mL/min/1.7 6:[address] LABORATORY GFR Estimate >60 >60 11/29/2017 HEALTH mL/min/1.7 6:[address] LABORATORY Specimen Anatomical Collection Method / Collection Time Recei karin Time (Source) Location / Volume Laterality Blood specimen Venipuncture / 11/29/2017 6:17 11/30/19 18 6:22 (specimen) Unknown AM CDT AM CDT Narrative [facility] - 11/29/2017 6:42 AM CDT Fasting Glucose reference range is 70-99 mg/dL per [place] [employer] (ADA) chay dela cruz. Maria E Russo MD LAB - BLOOD ORDERABLES Performing Organization Address City/State/ZIP Code Phon e Number [facility] [place] [address] [facility] [address] [place] [address] [address] [place] [place] [address] [facility] [address] [address], [facility] Glucose by meter POCT (11/28/2017 9:09 PM CDT) athologist Signature GLUCOSE BY 96 mg/dL 11/28/2017 [facility] METER POCT 9:09 PM CDT HOSPITAL POCT RESULTS Comment: Reference Ranges ? Age ?Normal ?Critical Values ? 0 day ?44-98 mg/d L ? <40 and >=400 mg/dL ? 1 day ?53-93 mg/d L ? <50 and >=400 mg/dL ? 2 day ?50-100 mg/ dL ?<50 and >=400 mg/dL ? 3 day ?62-110 mg/ dL ?<50 and >=400 mg/dL ? 4-7 day ?57-107 mg/d L ?<50 and >=400 mg/dL ? 8 d - 6 yr ? 69-115 mg/dL ?<50 and >=400 mg/dL ? 6 yr - 11 yr ?? 84-110 mg/dL ?<50 and >=400 mg/dL ? 11 yr - 16 yr ??79-116 mg/dL ?<50 and >=400 mg/dL ? > 16 yr ?70-125 mg/d L ?<60 and >=400 mg/dL Specimen Anatomical Collection Method Collection Time Receive d Time (Source) Location / / Volume Laterality Blood specimen 11/28/2017 9:09 PM 018 9:12 (specimen) CDT PM CDT Historical Provider LAB - ENTER/EDIT POCT Performing Organization Address City/State/ZIP Code Phon e Number [facility] POCT RESULTS [address] [place] [address] Glucose by meter POCT (11/28/2017 4:59 PM CDT) athologist Signature GLUCOSE BY 105 mg/dL 11/28/2017 [facility] METER POCT 4:59 PM CDT HOSPITAL POCT RESULTS Comment: Reference Ranges ? Age ?Normal ?Critical Values ? 0 day ?44-98 mg/d L ? <40 and >=400 mg/dL ? 1 day ?53-93 mg/d L ? <50 and >=400 mg/dL ? 2 day ?50-100 mg/ dL ?<50 and >=400 mg/dL ? 3 day ?62-110 mg/ dL ?<50 and >=400 mg/dL ? 4-7 day ?57-107 mg/d L ?<50 and >=400 mg/dL ? 8 d - 6 yr ? 69-115 mg/dL ?<50 and >=400 mg/dL ? 6 yr - 11 yr ?? 84-110 mg/dL ?<50 and >=400 mg/dL ? 11 yr - 16 yr ??79-116 mg/dL ?<50 and >=400 mg/dL ? > 16 yr ?70-125 mg/d L ?<60 and >=400 mg/dL Specimen Anatomical Collection Method Collection Time Receive d Time (Source) Location / / Volume Laterality Blood specimen 11/28/2017 4:59 PM 018 5:27 (specimen) CDT PM CDT Historical Provider LAB - ENTER/EDIT POCT Performing Organization Address City/State/ZIP Code Phon e Number [facility] POCT RESULTS [address] [place] [address] Glucose by meter POCT (11/28/2017 11:53 AM CDT) athologist Signature GLUCOSE BY 107 mg/dL 11/28/2017 [facility] METER POCT 11:53 AM CDT [facility] POCT RESULTS Comment: Reference Ranges ? Age ?Normal ?Critical Values ? 0 day ?44-98 mg/d L ? <40 and >=400 mg/dL ? 1 day ?53-93 mg/d L ? <50 and >=400 mg/dL ? 2 day ?50-100 mg/ dL ?<50 and >=400 mg/dL ? 3 day ?62-110 mg/ dL ?<50 and >=400 mg/dL ? 4-7 day ?57-107 mg/d L ?<50 and >=400 mg/dL ? 8 d - 6 yr ? 69-115 mg/dL ?<50 and >=400 mg/dL ? 6 yr - 11 yr ?? 84-110 mg/dL ?<50 and >=400 mg/dL ? 11 yr - 16 yr ??79-116 mg/dL ?<50 and >=400 mg/dL ? > 16 yr ?70-125 mg/d L ?<60 and >=400 mg/dL Specimen Anatomical Collection Method Collection Time Receive d Time (Source) Location / / Volume Laterality Blood specimen 11/28/2017 11:53 8 (specimen) AM CDT 12:07 PM CDT Historical Provider LAB - ENTER/EDIT POCT Performing Organization Address City/State/ZIP Code Phon e Number [facility] POCT RESULTS [address] [facility] N [address] (ABNORMAL) CBC with platelets (11/28/2017 7:46 AM CDT) [facility] gist Method Time Signature WBC 6.6 4.0 - 11.0 11/28/2017 HE[facility] thou/uL 7:52 AM CDT [facility] RBC Count 3.84 (L) 4.40 - 11/28/2017 HEALTH 6.20 7:52 AM CDT [facility] Hemoglobin 10.9 (L) 14.0 - 11/28/2017 [facility] 18.0 g/dL 7:52 AM CDT [facility] Hematocrit 32.4 (L) 40.0 - 11/28/2017 HEALTH 54.0 % 7:52 AM CDT [facility] MCV 84 80 - 100 11/28/2017 [facility] fL 7:52 AM CDT [facility] MCH 28.4 27.0 - 11/28/2017 [facility] 34.0 pg 7:52 AM CDT [facility] MCHC 33.6 32.0 - 11/28/2017 HE[facility] 36.0 g/dL 7:52 AM CDT [facility] RDW 13.5 11.0 - 11/28/2017 HEALTH 14.5 % 7:52 AM CDT [facility] Platelet Count 221 140 - 440 11/28/2017 [facility] thou/uL 7:52 AM CDT [facility] Mean Platelet 9.9 8.5 - 12.5 11/28/2017 HEALTH Volume fL 7:52 AM CDT [facility] Specimen Anatomical Collection Method / Collection Time Recei karin Time (Source) Location / Volume Laterality Blood specimen Venipuncture / 11/28/2017 7:46 11/29/19 18 7:50 (specimen) Unknown AM CDT AM CDT Joe Strickland PA-C LAB - BLOOD ORDERABLES Performing Organization Address City/State/ZIP Code Phon e Number [facility] [place] [address] Howe [address] [place] [place] [address] LABORATORY EXTRA GREEN TOP (LITHIUM HEPARIN) TUBE (11/28/2017 7:46 AM CDT) Specimen Anatomical Collection Method / Collection Time Recei karin Time (Source) Location / Volume Laterality Blood specimen Venipuncture / 11/28/2017 7:46 11/29/19 18 (specimen) Unknown AM CDT 10:16 AM CDT Jennifer Arenas MD LAB - BLOOD ORDERABLES Glucose by meter POCT (11/28/2017 7:45 AM CDT) athologist Signature GLUCOSE BY 106 mg/dL [facility] AM CDT HOSPITAL POCT RESULTS Comment: Reference Ranges ? Age ?Normal ?Critical Values ? 0 day ?44-98 mg/d L ? <40 and >=400 mg/dL ? 1 day ?53-93 mg/d L ? <50 and >=400 mg/dL ? 2 day ?50-100 mg/ dL ?<50 and >=400 mg/dL ? 3 day ?62-110 mg/ dL ?<50 and >=400 mg/dL ? 4-7 day ?57-107 mg/d L ?<50 and >=400 mg/dL ? 8 d - 6 yr ? 69-115 mg/dL ?<50 and >=400 mg/dL ? 6 yr - 11 yr ?? 84-110 mg/dL ?<50 and >=400 mg/dL ? 11 yr - 16 yr ??79-116 mg/dL ?<50 and >=400 mg/dL ? > 16 yr ?70-125 mg/d L ?<60 and >=400 mg/dL Specimen Anatomical Collection Method Collection Time Receive d Time (Source) Location / / Volume Laterality Blood specimen 11/28/2017 7:45 AM 018 8:25 (specimen) CDT AM CDT Historical Provider LAB - ENTER/EDIT POCT Performing Organization Address City/State/ZIP Code Phon e Number [facility] POCT RESULTS [address] [facility] [address] [address] LAB RESULT - HIM SCAN (11/28/2017) Narrative This result has an attachment that is no t available. Historical Provider [facility] NON-BEAKER LAB TESTING EKG CARDIAC - HIM SCAN (11/28/2017) Narrative This result has an attachment that is no t available. Historical Provider ECG ORDERABLES documented in this encounter Visit Diagnoses Diagnosis Primary osteoarthritis of both knees Primary localized osteoarthrosis, lower leg documented in this encounter Care Teams Call Worker Person Relationship Specialty Start Date End Date Mario Keith MD PCP - General Internal Medicine 11/28/17 [facility] [address] [place] [address] documented as of this encounter
--- OUTSIDE RECORDS SUMMARY | 2021-12-27 11:08 | XMS_ITS | Encounter Summary ---
:1955 Author Organization [place] Address [address] [facility] [place] [address] Care Team Providers Name Role Phone Unavailable Primary Care Provider Unavailable Encounter Details Date Type Department Care Team Description 04/07/2007 Consultation [facility] Madhu Toney MD [address] [facility] [address] [place] [address] (Wo rk) Social History Tobacco Use Types Packs/Day Years Used Date Never Assessed Sex Assigned at Date Recorded Not on file documented as of this encounter Progress Notes Madhu Toney - 05/20/2007 9:06 PM PROFESSOR OF MATHEMATICS FINAL CHIEF COMPLAINT: Sleep apnea, reflux, hyperlipidemia, anxiety and joint pains exacerbated by morbidobesity. HISTORY OF PRESENT ILLNESS: Jett Georges is a 51-year-old male who is self-referred intoour program. He has two sisters who have had this surgery. His physician is Mario Keith. The patient describes a 35+ year struggle with his weight. His attempts for weight loss include diet pills over 30 years ago, [id number] diets, exercise. His attempts for weight loss, however, have failed him. PAST MEDICAL HISTORY: 1. Sleep apnea for which he uses CPAP. 2. Hyperlipidemia. 3. Diabetes mellitus, not currently on medications. 4. Reflux disorder. 5. Anxiety. MEDICATIONS: Nexium, simvastatin, citalopram. ALLERGIES: Zyban . PAST SURGICAL HISTORY: Inguinal hernia repair at age 10. Tonsils and adenoids removed at age 5. FAMILY HISTORY: Father with high blood pressure and high cholesterol. Siblings who have all been obese. SOCIAL HISTORY: The patient is a 51-year-old male who is currently single after a divorce. He has one son. He works full-time for [employer] and he quit smoking a year ago. He was a 5 pack a day smoker before that and alcohol use on weekends. No other drug use is noted. REVIEW OF SYSTEMS: GENERAL: This is a 51-year-old male who denies any recent histories of fevers, chills or night sweats. ENDOCRINE: The patient has no history of thyroid related problems and he was recently on metformin for his diabetes, however, his blood sugars have normalized and he is not currently taking medications. CARDIOVASCULAR: The patient has hyperlipidemia and is on simvastatin. No other cardiovascular complaints, he has a family history of hypertension in his father. RESPIRATORY: The patient reports shortness of breath on occasions with activity. He has sleep apnea and uses a CPAP. No historyof asthma or emphysema. GASTROINTESTINAL: The patient has reflux disorder. He uses Nexium on a dailybasis. He has not had any GI surgeries but he did have an inguinal hernia repair at age 10 VASCULAR:The patient denies any history of DVT, claudication or problematic varicose veins. MUSCULOSKELETAL: The patient denies any specific musculoskeletal complaints, has miscellaneous joint pains which can be limiting. No orthopedic surgeries. PSYCHIATRIC: The patient has a history of anxiety. He uses citalopram. This started after he quit smoking, has never been able to stop the medication due to anxiety. PHYSICAL EXAMINATION: GENERAL: This is a 51-year-old male of good health, good development, normal affect. He is alert and oriented x3, answers all questions appropriately and is in no acute distress. VITAL SIGNS: Age 51, height 5 feet 10 inches, weight 309.3 pounds, BMI 44.3, blood pressure 152/80, pulse 78, respirations 18, temperature 98.1. HEENT: Head is normocephalic. Pupils equal, round and reactive to light and accommodation. Neck is supple, without adenopathy or thyromegaly. RESPIRATORY: Clear to auscultation bilaterally. No wheezes, rales or rhonchi were appreciated. CARDIOVASCULAR: Regular rate and rhythm without murmurs, rubs or gallops. GASTROINTESTINAL: Abdomen is obese, soft, nontender without masses. NEUROLOGIC: VASCULAR: Good distal pulses, no ankle edema was noted. MUSCULOSKELETAL: Full range of motion of all joints with a normal gait. NEUROLOGICAL: Cranial nerves II-XII are intact. PLAN: The patient is a 51-year-old male who is referred into our program from his primarycare provider Mario Keith. He has two sisters who have had this surgery, one who had it done down in [place]. The patient is setting up his appointment for psychological evaluation with Dr. Jett Cross. He will have his laboratory tests sent over from his doctor. We discussed the importance of preoperative weight loss and set a goal of 10 pounds. Once he has completed all requirements, if there are no further recommendations, he will then be allowed to see the surgeon of his choice for consultation on the Jame-en-Y gastric bypass. Electronically signed on 05/20/2007 21:05 by MADHU TONEY MD As dictated by MARQUITA SANTANA MT: kathi Name: JETT GEORGES MRN: [id number] Account: [id number] : 1955 Consult Date: 04/07/2007 Document: [id number] ESSOR OF MATHEMATICS documented in this encounter Plan of Treatment Not on filedocumented as of this encounter Visit Diagnoses Not on filedocumented in this encounter
--- OUTSIDE RECORDS SUMMARY | 2021-12-27 11:08 | XMS_ITS | Encounter Summary ---
:1955 Author Organization [facility] Address [address] [place] [address] Care Team Providers Name Role Phone Unavailable Primary Care Provider Unavailable Encounter Details Date Type Department Care Team Description 10/20/2007 Historic Notes INTERFACED REPORT Interface, Transcript onMD Social History Tobacco Use Types Packs/Day Years Used Date Never Assessed Sex Assigned at Date Recorded Not on file documented as of this encounter Progress Notes Interface, Remote Sensing Program Manager - 08/06/2010 9:30 PM CDT General Information - How to be addressed Leandro - ground crew lines person to Gabriella Foster (sister) notify: - Phone 1: [phone] - ground crew lines person #2: Leandro Curiel (father) - Phone 1: [phone] - ground crew lines person #3: Nusrat KieraGueroAiem (friend) - Phone 1: [phone] - Patient's Spoken Language, Nepalese communication style Advance Directive - Do you have a Advance No Health Care Directive? - Can patient name a Yes Surrogate Decision Maker? (Not legally binding) - Surrogate Name: Gabriella (sister) - Would you like to No receive information about Advanced Directives? Valuables - Valuables Yes - Type of Valuables Glasses; C Pap - Disposition of In safe 5314 Valuables Health and Illness History - Reason for gastric bypass admission/chief complaint as stated by patient - Previous reaction to No anesthesia Allergies Drug ?? Zyban;Hives, Active Substance Use - Tobacco Use Quit less than 12 months ago, smoking cessation information given., quit 2 yrs ago - Caffeine Use Yes - Caffeine Type Coffee - Caffeine Amount < 3 cups/day - History of Alcohol Yes Use - Alcohol Type Liquor - Alcohol Frequency Two to four times a month - Date of Last Alcohol Date alcohol last used, 10/17/07 Use - History of street No drug/inhalant/ medication abuse Review of Systems - Cardiac Problems Yes - Cardiac Elevated cholesterol Conditions/Symptoms - Pulmonary Problems Yes - Pulmonary Sleep apnea; CPAP Conditions/Symptoms - Peripheral Vascular No Problems - Neuro Muscular Yes Problems - GI Problems Yes - GI GERD; very controlled with Nexium Conditions/Symptoms - Problems No - Immune Problems No - Influenza vaccine N/A; Not currently flu season (08/18-02/16) - Pneumococcal Vaccine Never immunized - Pneumococcal vaccine None of the above indications (offer year round) indications: check all that apply - Skin Problems No - Endocrine Problems Yes - Endocrine Diabetes: Type 2 Conditions/Symptoms - Treatment and Oral antidiabetic medications and diet; Checks Frequency of Blood blood glucose 2 times per day Glucose Checks - Usual Blood Glucose Usual blood glucose range, 124 Range - Mental Health Yes Problems - Mental Health Depression; Anxiety disorder; controlled well Conditions/Symptoms with med Cognitive Perceptual - Alterations in No Sensation - Vision Problems Yes - Vision problems Decreased visual acuity present - Use of Sensory Yes Assistive Devices - Vision Assistive Glasses Devices - Reading Problems No - Speech/Communication No Problems - Changes in thought No Process/Behavior - Factors influencing No factors identified readiness to learn - Factors that impact No barriers identified ability to learn - Learning Preferences Prefers written material; Prefers individual instruction - Cultural Learning None Considerations - Developmental None Learning Considerations - Episcopal Learning None Considerations Activity-Exercise/Self Care - Ambulation 0 - Independent with ambulation - Transferring 0 - Independent with transfers - Toileting 0- Independent with toileting - Bathing 0- Independent with bathing - Dressing 0- Independent with dressing - Eating 0- Independent with eating - Swallowing no issues - Fall history within No history of falls last six months - Which of the above None functional risks had a recent onset or change? - Lives with Alone - Describe living House environment - Any physical barriers Yes in home - Barriers in home Number of stairs Nutrition/Metabolic - Diet Regular - Nutrition Risk Screen No risk indicators present Sleep/Relaxation - Problems Sleeping Yes - Problems Trouble falling asleep; does well on meds Role Relationships - QUESTION TO PATIENT: No. Are you now or have you ever been in a relationship where you have been abused physically, emotionally or sexually? - NURSE OBSERVATION: Is No there reasonable cause to believe the patient has been abused, assaulted, is self abusive, neglected or exploited? Coping-Stress Tolerance - Have you had a recent No major change/significant loss/stressor in your life Values/Beliefs/Spiritual Care - F: Catherine: Does Jew culture/spirituality/ jehovah's witness play an important part in your life? - Would you like Does not wish to have anyone contacted pastoral care/clergy/farm advisor notified? Mutuality/Individual Preferences - What information none would help us give you more personalized care? - What if any None limitations on visitors, TV or phone calls would you like Signatures DAVIDA KIM (RD, LD)[Signed 10:30] Authored: Nutrition/Metabolic ARSENIO MERINO (RN)[Signed 06:34] Authored: General Information, Advance Directive, Valuables, Health and Illness History, Allergies, Substance Use, Review of Systems, Cognitive Perceptual, Activity-Exercise/Self Care, Nutrition/Metabolic, Sleep/Relaxation, Role Relationships, Coping-Stress Tolerance, Values/Beliefs/Spiritual Care, Mut uality/Individual Preferences Interface, Remote Sensing Program Manager - 08/06/2010 9:27 PM CDT Bariatric Consult Medications evaluated as requested per Bariatric Consult. The following medication changes are recommended: NEXIUM extended release capsule should be switched to PREVACID 30 mg SOLUTAB or PREVACID 30 mg SUSPENSION. CELEXA may be crushed and is available as a 2 mg/ml solution. MULTIVITAMINS are available in chewable form or may be crushed. ZOCOR may be crushed. GLUCOPHAGE is not usually recommended S/P gastric bypass but may be crushed if it is continued. ATIVAN may be crushed. Pharmacist will continue to follow as new medications are ordered. [Signature] Author: JAKE JANG (Pharmacist) [Signed 22:50] documented in this encounter Plan of Treatment Not on filedocumented as of this encounter Visit Diagnoses Not on filedocumented in this encounter
--- OUTSIDE RECORDS SUMMARY | 2021-12-27 11:08 | XMS_ITS | Encounter Summary ---
:1955 Author Organization [facility] Address [facility] [place] [address] Care Team Providers Name Role Phone Unavailable Primary Care Provider Unavailable Encounter Details Date Type Department Care Team Description 10/20/2007 Operative Report [facility] Em Merida MD (Labor/Excavator) [address] [place] [address] Social History Tobacco Use Types Packs/Day Years Used Date Never Assessed Sex Assigned at Date Recorded Not on file documented as of this encounter Progress Notes Em Merida - 10/27/2007 10:29 PM CDT FINAL 1st Cyber Threat Analyst: Kalpana Becker PA-C PREOPERATIVE DIAGNOSIS: 1. Morbid obesity. 2. Sleep apnea. 3. Diabetes. 4. Hyperlipidemia. 5. Gastroesophageal reflux disease. POSTOPERATIVE DIAGNOSIS: 1. Morbid obesity. 2. Sleep apnea. 3. Diabetes. 4. Hyperlipidemia 5. Gastroesophageal reflux disease. PROCEDURE: Laparoscopic Jame-en-Y gastric bypass. ANESTHESIA: General. DESCRIPTION OF PROCEDURE: After induction of general endotracheal anesthesia, Mr. Jett Georges wasplaced in the modified lithotomy position and all pressure points were well padded. His abdomen was prepped and draped in the usual sterile fashion. All trocar sites were anesthetized with a mixture ofshort and long- acting local anesthetic. With an Endopath trocar in the left upper quadrant, the abdomen was entered and pneumoperitoneum was established under direct visualization. We then placed 4 additional 12 mm trocars in the right upper quadrant, infraumbilical, left mid abdomen and left flank. Initial exploration revealed blunt edge liver, normal gallbladder. The surface of the omentum, gallbladder, visible small intestine appeared normal. The omentum was split in half using Harmonic scalpel. We then identified the ligament of Treitz, followed the small bowel about 45-50 cm until suitable loop of small bowel reached the upper abdomen without tension. At this point, the biliopancreatic limb was marked with a 3-0 silk suture and the bowel was transected with an Endo-NATALIE. We then created a 100cm Jame limb at which point, the biliopancreatic limb was reattached to the intestine using a triplestaple technique. The mesenteric defect created by this anastomosis was obliterated with a running 3-0 silk suture. We shifted our attention to the upper abdomen. Through a 5 mm incision in the subxiphoid position a Amie retractor was utilized to mobilize the left lobe of the liver. Angle of His was taken down with electrocautery and blunt dissection. The lesser sac was entered along the lesser curvature of the stomach just distal to the first few left gastric branches. Neurovascular structureswere preserved. We transected the stomach from this entry site into the lesser sac toward the angle of His. A small gastric pouch was created and the stomach was completely divided. We then placed the anvil of a 25 mm EEA stapler into the gastric pouch through an oral route coming through the pouch staple line. We then introduced a 25 mm EEA stapler through the patient's left flank and into the proximal end of the Jame limb which was opened with the Harmonic scalpel. The stapler was deployed at the antimesenteric border coupled to its anvil closed and fired. Two donuts of healthy tissue were identified in the stapler. The proximal end of the Jame limb was shortened and closed with a firing of the Endo-NATALIE stapler. We then further secured the gastrojejunostomy with multiple interrupted 3-0 silk sutures on its entire anterolateral aspect. The Jame limb was then atraumatically occluded and the gastric pouch and anastomosis distended with saline solution which showed no evidence of active bleeding.The upper abdomen was then flooded and a bubble test performed, there was no evidence of air leakage. We then distended the pouch with methylene blue containing solution and no evidence of leakage was noticed either. We then allowed the omentum to fall on either side of the Jame limb. All the 12 mm tro cars were closed with interrupted 0 Vicryl sutures under direct visualization using Samm-Saray device. The Amie retractor was removed under direct visualization without evidence of injury. The pneumoperitoneum was released and the skin in all port sites was approximated with 4-0 Monocryl after generous irrigation. Steri-Strips and sterile dressing was applied. No immediate complications. Electronically signed on 10/27/2007 22:28 by EM MERIDA MD MT: kera Name: JETT GEORGES MRN: [id number] Account: [id number] : 1955 Procedure Date: 10/20/2007 Document: [id number] documented in this encounter Plan of Treatment Not on filedocumented as of this encounter Visit Diagnoses Not on filedocumented in this encounter
--- OUTSIDE RECORDS SUMMARY | 2021-12-27 11:08 | XMS_ITS | Encounter Summary ---
:1955 Author Organization [facility] Address [address] [place] [address] Care Team Providers Name Role Phone Unavailable Primary Care Provider Unavailable Encounter Details Date Type Department Care Team Description 03/07/2009 Historic Notes INTERFACED REPORT Interface, Transcript onMD Social History Tobacco Use Types Packs/Day Years Used Date Never Assessed Sex Assigned at Date Recorded Not on file documented as of this encounter Progress Notes Interface, Vertica Architect - 08/05/2010 5:35 PM CDT General Information - Has NOT attended OT 13:00 as of: Plan - Plan: Continue to invite to groups to assess. Signatures ESTER DIGGS (MILLER)[Signed 12:38] Authored: General Information, Plan documented in this encounter Plan of Treatment Not on filedocumented as of this encounter Visit Diagnoses Not on filedocumented in this encounter
--- OUTSIDE RECORDS SUMMARY | 2021-12-27 11:08 | XMS_ITS | Encounter Summary ---
:1955 Author Organization [facility] Address [address] [place] [address] Care Team Providers Name Role Phone Mario Keith MD Primary Care Provider [phone] Reason for Referral Consultation (Routine) Specialty Diagnoses / Procedures Referred By Contact Refer red To Contact Senthil Zhao MD [address] [place] [address] Referral ID Status Reason Start Date Expiration Date Visits Requ ested Visits Authorized [facility] (Routine) Specialty Diagnoses / Procedures Referred By Contact Refer red To Contact Senthil Zhao MD [address] [place] [id number] Referral ID Status Reason Start Date Expiration Date Visits Requ ested Visits Authorized [facility] (Routine) Specialty Diagnoses / Procedures Referred By Contact Refer red To Contact Senthil Zhao MD [address] [place] [address] Referral ID Status Reason Start Date Expiration Date Visits Requ ested Visits Authorized Reason for Visit Reason Comments One-sided Weakness Auth/Cert Specialty Diagnoses / Procedures Referred By Contact Refer red To Contact EMERGENCY MEDICINE Diagnoses Acute right-sided weakness Acute right-sided weakness Emergency Dept [address] [place] [address] Phone: Fax: Referral ID Status Reason Start Date Expiration Date Visits Requ ested Visits Authorized [id number] 1 1 Encounter Details Date Type Department Care Team Description 03/03/2021 - Emergency [facility] Deandre Alvarez Cla, MD [facility] [address] [place], [place] [id number] 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) (Primary Dx); 03/06/2021 [place] [id number] Medical Sandeep Nunez DO [address] [place] [address] Acute right-sided weakness; Surgical Romaine Eng MD [address] [place] [address] JUSTIN (generalized anxiety disorder); [address] [facility] [place] [address] Social History Tobacco Use Types Packs/Day Years [...] Mass Index 42.39 03/03/2021 3:42 PM CDT documented in this encounter Discharge Summaries Senthil Zhao MD - 03/06/2021 3:[address] [facility] Discharge Summary Hospitalist Date of Admission: 03/03/2021 Date of Discharge: 03/06/2021 Discharging Provider: Senthil Zhao MD Date of Service (when I saw the patient): 03/06/21 Discharge Diagnoses Fall. Concern of polypharmacy. Right shoulder weakness. Right shoulder abduction weakness. Uncertain etiology. Likely related to nerve injury in the settingof the fall. Mild rhabdomyolysis due to being on the floor. Diabetes. Hypertension. Anxiety/depression. History of gout. Dyslipidemia. Sleep apnea. History of Present Illness 65 year old??right-handed??male with a past medical history significant for hypertension,??GERD, hyperlipidemia, insomnia, noninsulin-dependent diabetes mellitus,??depression anxiety,??morbid obesity and sleep apnea on CPAP??who presents with??complaints of right-sided weakness??U>L,??grogginess and concerns for accidental medication misuse. Apparently he accidentally took 8 tablets of his tramadol in addition to his usual nighttime medications.?Basically fell while walking the bathroom overnight and was too weak to get up so slept on the floor. ??Son called EMS this morning who found the patient on the floor wedged between the wall and the bed. ??EMS noted right arm drift otherwise other neuro is intact. ?? Upon arrival to the emergency room, vital signs were stable except he is mildly hypertensive with systolic in the 160s.?Laboratory results shows mild hypokalemia, negative troponin and mild leukocytosis of 13.3K.?Alcohol was negative.?CT head and CT angiogram of the head/neck??were??negative but CT perfusion scan did show questionable perfusion abnormality in the anterior temporal lobe. ??Stroke neurology was contacted emergency room.?Recommended ??MRI.?325 mg aspirin was given. ??Patient was recommended admission to the hospital for further evaluation. Hospital Course Right shoulder weakness. Possible nerve injury. -Unable to do shoulder abduction. This appears to be the main deficit. -Patient was seen by general neurology, neurosurgery/spine surgery, orthopedic teams. -Per general neurologist: based on neurological symptoms and exam, no clear neurological etiology for the right shoulder abduction deficit. Possibility of brachial plexus injury/palsy considered. But patient appears to have isolated right shoulder abduction deficit without any other sensory or motor deficit which would be extremely unusual for brachial plexus injury. -Spine surgery team was also consulted due to abnormal C-spine MRI which showed foraminal narrowing.But based on their clinical exam as well as the MRI findings, they did not feel that it was due to radiculopathy from the foraminal narrowing. Once again there appears to be isolated shoulder abductiondeficit. -They recommended orthopedic consultation as well to rule out any shoulder joint issue. Low likelihood of that as patient does not have any pain with passive movement. -Seen by orthopedic team. The did not recommend any shoulder joint imaging as patient has no pain with passive movement. Moreover, last night patient had improvement in his shoulder abduction suggestive of neurological injury. -Patient also underwent MRI of the brachial plexus which did not reveal any nerve enhancement or nerve injury. Although that would not completely rule out a nerve palsy. -Patient is being discharged home with home physical therapy. -Orthopedic team will do a follow-up within a week to monitor the recovery. At that time they will decide about further shoulder imaging. -Discussed with neurology team as well: EMG could be done in about 3 to 4 weeks time. -On exam, patient is unable to do abduction of the shoulder joint. Other movements appear to be intact. No wrist drop. Has good biceps and triceps strength. Able to do adduction as well. -On exam, no pain with internal or external rotation of the shoulder joint. No pain with passive shoulder abduction. ?? Unintentional medication misuse. -High likelihood of this being due to medication misuse. -On multiple medications which could affect his neurological status as well as cause interaction. -I discussed that at length with the patient. Patient is willing to have this discussion with his primary care physician for further changes. Sudden withdrawal of these medications may cause issues as well. -He will benefit from home care nursing who can help him manage the medications at home. He should have a discussion with his primary care physician regarding backing off on some of the medications. -History of sleep apnea further complicates the matter. -Lorazepam is being decreased. ?? Mild rhabdomyolysis -Improved ?? Diabetes -On Metformin and glipizide at baseline. ?? Hypertension -On lisinopril ?? Anxiety/depression -On sertraline, Seroquel, as needed lorazepam. ?? History of gout -On allopurinol, gabapentin, Mobic 15 mg daily. ?? Dyslipidemia -Statin ?? Sleep apnea -On CPAP. Seen by PT and OT. They recommended TCU but patient clearly refused. He is willing to have home carebut declined to go to a TCU. Home care arranged. Patient's son updated. I personally evaluated and examined the patient on the day of discharge. Senthil Zhao MD Pending Results These results will be followed up by PCP Unresulted Labs Ordered in the Past 30 Days of this Admission No orders found from 02/01/2021 to 03/04/2021. Primary Care Physician Mario Keith Discharge Disposition Discharged to home Condition at discharge: Stable Consultations This Hospital Stay NEUROLOGY IP CONSULT NEUROLOGY IP CONSULT CARE MANAGEMENT / SOCIAL WORK IP CONSULT PHYSICAL THERAPY ADULT IP CONSULT OCCUPATIONAL THERAPY ADULT IP CONSULT PHYSICAL THERAPY ADULT IP CONSULT OCCUPATIONAL THERAPY ADULT IP CONSULT SPINE SURGERY ADULT IP CONSULT ORTHOPEDIC SURGERY IP CONSULT Time Spent on this Encounter Discharge time: greater than 30 minutes. Discharge Orders Home care nursing referral Home Care PT Referral for Hospital Discharge Home Care OT Referral for Hospital Discharge Reason for your hospital stay Fall. Concern of polypharmacy. Follow-up and recommended labs and tests Follow up with primary care provider, Mario Keith, within 7 days for hospital follow- up. Activity Your activity upon discharge: activity as tolerated MD face to face encounter Documentation of Face to Face and Certification for Home Health Services I certify that patient: Jett Georges II is under my care and that I, or a nurse practitioner or physician's chiropractor assistant working with me, had a [id number] encounter that meets the physician kxvl-ra-byyt encounter requirements with this patient on: 03/05/2021. This encounter with the patient was in whole, or in part, for the following medical condition, whichis the primary reason for home health care: Fall, unstable gait, polypharmacy, right arm weakness after the fall. I certify that, based on my findings, the following services are medically necessary home health services: Nursing, Occupational Therapy, and Physical Therapy. My clinical findings support the need for the above services because: Nurse is needed: To provide caregiver training to assist with: medication management, monitoring for unintentional misuse of Rx meds, Occupational Therapy Services are needed to assess and treat cognitive ability and address ADL safety due to impairment in gait and walking, fall at home, unsteady gait, generalized weakness, right arm weakness after the fall.., and Physical Therapy Services are needed to assess and treat the following functional impairments: unsteady gait, generalized weakness, right arm weakness after the fall. Further, I certify that my clinical findings support that this patient is homebound (i.e. absences from home require considerable and taxing effort and are for medical reasons or spiritism services or infrequently or of short duration when for other reasons) because: Patient is bedbound due to: fall risk, unsteady gait. Based on the above findings. I certify that this patient is confined to the home and needs intermittent mcc care, physical therapy and/or speech therapy. The patient is under my care, and susana initiated the establishment of the plan of care. This patient will be followed by a physician who will periodically review the plan of care. Physician/Provider to provide follow up care: Mario Keith Attending advanced surgical hospital physician (the Medicare certified [facility] provider): Senthil Zhao MD Physician Signature: See electronic signature associated with these discharge orders. Date: 03/05/2021 Walker Order DME Documentation: Describe the reason for need to support medical necessity: Impaired gait training. I, the undersigned, certify that the above prescribed supplies are medically necessary for this patient and is both reasonable and necessary in reference to accepted standards of medical and necessary in reference to accepted standards of medical practice in the treatment of this patient's condition and is not prescribed as a convenience. Walker Order DME Documentation: Describe the reason for need to support medical necessity: Difficulty walking. I, the undersigned, certify that the above prescribed supplies are medically necessary for this patient and is both reasonable and necessary in reference to accepted standards of medical and necessary in reference to accepted standards of medical practice in the treatment of this patient's condition and is not prescribed as a convenience. Diet Follow this diet upon discharge: Orders Placed This Encounter Combination Diet Regular Diet Adult Discharge Medications Current Discharge Medication List CONTINUE these medications which have CHANGED Details LORazepam (ATIVAN) 1 MG tablet Take 0.5 tablets (0.5 mg) by mouth 3 times daily as needed for anxiety CONTINUE these medications which have NOT CHANGED Details allopurinol (ZYLOPRIM) 300 MG tablet Take 1 tablet by mouth daily aspirin (ASA) 81 MG chewable tablet Take 81 mg by mouth daily gabapentin (NEURONTIN) 300 MG capsule Take 900 mg by mouth 3 times daily lisinopril (ZESTRIL) 20 MG tablet Take 20 mg by mouth daily meloxicam (MOBIC) 15 MG tablet Take 15 mg by mouth daily metFORMIN (GLUCOPHAGE) 500 MG tablet Take 500 mg by mouth 3 times daily (with meals) omeprazole (PRILOSEC) [address] capsule Take 40 mg by mouth daily QUEtiapine (SEROQUEL) 200 MG tablet Take 200 mg by mouth At Bedtime sertraline (ZOLOFT) 50 MG tablet Take 50 mg by mouth daily simvastatin (ZOCOR) 20 MG tablet Take 20 mg by mouth daily (with dinner) tamsulosin (FLOMAX) 0.4 MG capsule Take 0.4 mg by mouth daily traMADol (ULTRAM) 50 MG tablet Take 1-2 tablets by mouth every 6 hours as needed for pain traZODone (DESYREL) 50 MG tablet Take 75 mg by mouth At Bedtime Allergies Allergies Allergen Reactions ??? Zyban [Bupropion Hydrobromide] Hives Data Most Recent 3 CBC's:Recent Labs Lab Test 03/04/21 0802 03/03/21 0958 11/29/17 0617 WBC 8.6 13.3* 7.7 HGB 12.4* 12.4* 10.3* MCV 87 87 85 PLT 290 283 177 Most Recent 3 BMP's: Recent Labs Lab Test 03/06/21 1326 03/06/21 0724 03/05/21 2134 03/04/21 1155 03/04/21 0802 03/04/21 0218 03/03/21 2029 03/03/21 1754 03/03/21 1547 03/03/21 0958 03/03/21 0958 11/29/17 0703 11/29/17 0617 NA -- -- -- -- 132* -- 128* -- 127* < > 126* < > 134* POTASSIUM -- -- -- -- 4.4 -- -- -- -- -- 4.7 -- 4.5 CHLORIDE -- -- -- -- 100 -- -- -- -- -- 92* -- 99 CO2 -- -- -- -- 26 -- -- -- -- -- 25 -- 27 BUN -- -- -- -- 6* -- -- -- -- -- 11 -- 7* CR -- -- -- -- 0.65* -- -- -- -- -- 0.95 -- 0.78 ANIONGAP -- -- -- -- 6 -- -- -- -- -- 9 -- 8 TRACEE -- -- -- -- 8.8 -- -- -- -- -- 8.8 -- 8.8 GLC 131* 165* 194* < > 203* < > -- < > -- < > 180* < > 122 < > = values in this interval not displayed. Most Recent 2 LFT's: Recent Labs Lab Test 03/03/21 0958 AST 38 ALT 32 ALKPHOS 60 BILITOTAL 0.4 Most Recent INR's and Anticoagulation Dosing History: Anticoagulation Dose History Recent Dosing and Labs Latest Ref Rng & Units 03/03/2021 INR 0.85 - 1.15 0.94 Most Recent 3 Troponin's: Recent Labs Lab Test 03/03/21 0958 TROPONIN <0.015 Most Recent Cholesterol Panel: Recent Labs Lab Test 03/03/21 0958 CHOL 152 LDL 66 HDL 52 TRIG 168* Most Recent 6 Bacteria Isolates From Any Culture (See EPIC Reports for Culture Details):No lab results found. Most Recent TSH, T4 and A1c Labs: Recent Labs Lab Test 03/03/21 1547 A1C 8.1* documented in this encounter Discharge Instructions Discharge InstructionsSandhya Heath LSW - 03/05/2021 11:25 AM CDT Your home care referral was sent to [facility] If you haven't heard from them within the next 24-48 hours, Please call them at [phone] documented in this encounter Medications at Time of Discharge Medication Sig Dispensed Refills Start Date End Date allopurinol (ZYLOPRIM) 300 Take 1 tablet by 0 MG tablet mouth daily aspirin (ASA) 81 MG Take 81 mg by mouth 0 chewable tablet daily gabapentin (NEURONTIN) 300 Take 900 mg by mouth 0 01/30/2021 MG capsule 3 times daily lisinopril (ZESTRIL) 20 MG Take 20 mg by mouth 0 12/18/2020 tablet daily LORazepam (ATIVAN) 1 MG Take 0.5 tablets (0.5 0 1 tablet mg) by mouth 3 times daily as needed for anxiety meloxicam (MOBIC) 15 MG Take 15 mg by mouth 0 tablet daily metFORMIN (GLUCOPHAGE) 500 Take 500 mg by mouth 0 02/23/2021 MG tablet 3 times daily (with meals) omeprazole (PRILOSEC) 40 Take 40 mg by mouth [address] capsule daily QUEtiapine (SEROQUEL) 200 Take 200 mg by mouth 0 02/20/2021 MG tablet At Bedtime sertraline (ZOLOFT) 50 MG Take 50 mg by mouth 0 0 01/20/2021 tablet daily simvastatin (ZOCOR) 20 MG Take 20 mg by mouth 0 0 01/24/2021 tablet daily (with dinner) tamsulosin (FLOMAX) 0.4 MG Take 0.4 mg by mouth 0 02/15/2021 capsule daily traMADol (ULTRAM) 50 MG Take 1-2 tablets by 0 04/2021 tablet mouth every 6 hours as needed for pain traZODone (DESYREL) 50 MG Take 75 mg by mouth 0 1 tablet At Bedtime documented as of this encounter Progress Notes Bhavesh Lynn RN - 03/05/2021 5:53 PM CDT To Do: End of Shift Summary For vital signs and complete assessments, please see documentation flowsheets. Pertinent assessments: neurosurg consulted for MRI results Major Shift Events no new orders per Neurosurg Treatment Plan: discharge home 03/06 Bedside Nurse: Bhavesh Lynn, RN Praful Gaytan MD - 03/05/2021 2:52 PM CDT Brief Note Jett is doing about the same. No obvious improvement in his ability to abduct at the shoulder. No new symptoms either and no pain. No sensory deficit. His MRI of the cervical spine yesterday was unrevealing in my opinion (at least from an acute perspective). There is some significant neuroforaminal stenosis at C5-6 on the right side. But I do not believe this is likely to explain this presentation. He did have some reduced brachioradialis reflexes on the right and this finding should be evaluated by a spine center as an outpatient. But I doubt thisis something that only now developed and seems unlikely to explain this distribution of weakness. As noted yesterday, I will defer evaluation for soft tissue or joint injury to the primary service. Though there does not seem to be any pain with movement or palpation. Per notes, it appears that rotator cuff imaging is being considered. This presentation is not clearly indicative of another peripheral localization (upper trunk should effect biceps strength, posterior cord triceps strength, and an isolated axillary nerve injury is quite uncommon and he does not have any sensory deficits over the lateral upper arm). But if other etiologies are ruled out, the last neurologic etiology that could conceivably lead to a diagnosis requiring urgent intervention would be an injury to the brachial plexus. If no explanation is found, he will need follow up as an outpatient for an EMG. - If no other etiology is discovered, consider MRI Brachial Plexus to look for source of injury. Otherwise, will need follow up as an outpatient for an EMG. Praful Gaytan MD (general neurology) pgr [phone] Senthil Zhao MD - 03/05/2021 2:[address] [facility] Hospitalist Progress Note Assessment & Plan Jett Georges II is a 65 year old male who was admitted on 03/03/2021. Summary of Stay: 65 year old??right-handed??male with a past medical history significant for hypertension,??GERD, hyperlipidemia, insomnia, noninsulin-dependent diabetes mellitus,??depression anxiety,??morbid obesity and sleep apnea on CPAP??who presents with??complaints of right-sided weakness??U>L,??grogginess and concerns for accidental medication misuse. Apparently he accidentally took 8 tablets of his tramadol in addition to his usual nighttime medications.?Basically fell while walking the bathroom overnight and was too weak to get up so slept on the floor. ??Son called EMS this morning who found the patient on the floor wedged between the wall and the bed. ??EMS noted right arm drift otherwise other neuro is intact. ?? Upon arrival to the emergency room, vital signs were stable except he is mildly hypertensive with systolic in the 160s.?Laboratory results shows mild hypokalemia, negative troponin and mild leukocytosis of 13.3K.?Alcohol was negative.?CT head and CT angiogram of the head/neck??were??negative but CT perfusion scan did show questionable perfusion abnormality in the anterior temporal lobe. ??Stroke neurology was contacted emergency room.?Recommended ??MRI.?325 mg aspirin was given. ??Patient was recommended for mission to the hospital for further evaluation. Plan: Right shoulder weakness. -Unable to do shoulder abduction. -Seen by neurology yesterday for possibility of brachial plexus palsy due to laying on the floor forunknown duration. -Per neurology, the clinical findings were not consistent with injury to the C5 nerve root or upper trunk of the brachial plexus or axillary nerve. The recommended C-spine MRI. -C-spine MRI done today showed C5-C6 abnormality with foramina narrowing, and mild to moderate spinal canal narrowing. -On exam, patient is unable to do abduction of the shoulder joint. Other movements appear to be intact. No wrist drop. Has good biceps and triceps strength. Able to do abduction as well. -On exam, no pain with internal or external rotation of the shoulder joint. No pain with passive shoulder abduction. -Per neurology report, earlier patient complained of shoulder pain. -Discussed with spine surgery team over the phone who have reviewed the MRI: MRI findings are not critical and likely not the etiology behind his neuro deficit. They will assess the patient in the afternoon and provide recommendations. May need imaging of the rotator cuff as rotator cuff injury would be the other explanation. -Patient is aware of the plan. He is really eager to go home. But was willing to stay for further assessment. Unintentional medication misuse. -High likelihood of this being due to medication misuse. -On multiple medications which could affect his neurological status as well as cause interaction. -I discussed that at length with the patient. Patient is willing to have this discussion with his primary care physician for further changes. Sudden withdrawal of these medications may cause issues as well. -He will benefit from home care nursing who can help him manage the medications at home. He should have a discussion with his primary care physician regarding backing off on some of the medications. -History of sleep apnea further complicates the matter. Mild rhabdomyolysis -Improved Diabetes -On Metformin and glipizide at baseline. Hypertension -On lisinopril Anxiety/depression -On sertraline, Seroquel, as needed lorazepam. History of gout -On allopurinol, gabapentin, Mobic 15 mg daily. Dyslipidemia -Statin Sleep apnea -On CPAP. Seen by PT and OT. They recommended TCU but patient clearly refused. He is willing to have home carebut declined to go to a TCU. DVT Prophylaxis: Pneumatic Compression Devices Code Status: Full Code Expected discharge: 1-2 days Senthil Zhao MD Text Page (7am - 6pm, M-F) Interval History Patient was evaluated with nursing staff. Overnight issues discussed. Review of systems: No nausea or vomiting. No abdominal pain. No diarrhea. No chest pain/palpitations. No new cough/shortness of breath. No headache/visual disturbance/new weakness. -Data reviewed today: Labs and medications. Physical Exam Temp: 98.3 ??F (36.8 ??C) Temp src: Axillary BP: (!) 162/73 Pulse: 72 Resp: 16 SpO2: 95 % O2 Device:None (Room air) Vitals: 03/03/21 1004 03/03/21 1542 Weight: 131.5 kg (290 lb) 137.8 kg (303 lb 14.4 oz) Vital Signs with Ranges Temp: [98.1 ??F (36.7 ??C)-98.6 ??F (37 ??C)] 98.3 ??F (36.8 ??C) Pulse: [64-83] 72 Resp: [16] 16 BP: (162-178)/(60-86) 162/73 SpO2: [94 %-98 %] 95 % I/O last 3 completed shifts: In: 940 [P.O.:940] Out: 1400 [Urine:1400] Constitutional: Awake, alert, cooperative, no apparent distress HEENT: Trachea midline, sclera is clear Respiratory: No crackles. No wheezing. Equal breath sounds bilaterally. Cardiovascular: Regular rate and rhythm, normal S1 and S2, and no murmur noted GI: Normal bowel sounds, soft, non-distended, non-tender Extremities: Right shoulder abduction deficit. Medications ??? allopurinol 300 mg Oral Daily ??? aspirin 81 mg Oral Daily ??? gabapentin 300 mg Oral TID ??? insulin aspart 1-7 Units Subcutaneous TID AC ??? insulin aspart 1-5 Units Subcutaneous At Bedtime ??? lisinopril 20 mg Oral Daily ??? meloxicam 15 mg Oral Daily ??? metFORMIN 1,000 mg Oral BID w/meals ??? omeprazole 40 mg Oral Daily ??? QUEtiapine 200 mg Oral At Bedtime ??? sertraline 50 mg Oral Daily ??? simvastatin 20 mg Oral Daily with supper ??? tamsulosin 0.4 mg Oral Daily ??? traZODone 75 mg Oral At Bedtime Data Recent Labs Lab 03/05/21 1252 03/05/21 0720 03/05/21 0152 03/04/21 1155 03/04/21 0802 03/04/21 0218 03/03/21 2029 03/03/21 1754 03/03/21 1547 03/03/21 0958 03/03/21 0958 WBC -- -- -- -- 8.6 -- -- -- -- -- 13.3* HGB -- -- -- -- 12.4* -- -- -- -- -- 12.4* MCV -- -- -- -- 87 -- -- -- -- -- 87 PLT -- -- -- -- 290 -- -- -- -- -- 283 INR -- -- -- -- -- -- -- -- -- -- 0.94 NA -- -- -- -- 132* -- 128* -- 127* < > 126* POTASSIUM -- -- -- -- 4.4 -- -- -- -- -- 4.7 CHLORIDE -- -- -- -- 100 -- -- -- -- -- 92* CO2 -- -- -- -- 26 -- -- -- -- -- 25 BUN -- -- -- -- 6* -- -- -- -- -- 11 CR -- -- -- -- 0.65* -- -- -- -- -- 0.95 ANIONGAP -- -- -- -- 6 -- -- -- -- -- 9 TRACEE -- -- -- -- 8.8 -- -- -- -- -- 8.8 GLC 137* 171* 132* < > 203* < > -- < > -- < > 180* ALBUMIN -- -- -- -- -- -- -- -- -- -- 4.0 PROTTOTAL -- -- -- -- -- -- -- -- -- -- 7.6 BILITOTAL -- -- -- -- -- -- -- -- -- -- 0.4 ALKPHOS -- -- -- -- -- -- -- -- -- -- 60 ALT -- -- -- -- -- -- -- -- -- -- 32 AST -- -- -- -- -- -- -- -- -- -- 38 LIPASE -- -- -- -- -- -- -- -- -- -- 101 TROPONIN -- -- -- -- -- -- -- -- -- -- <0.015 < > = values in this interval not displayed. Recent Results (from the past 24 hour(s)) MR Cervical Spine w/o Contrast Narrative EXAM: MR CERVICAL SPINE W/O CONTRAST LOCATION: [facility] DATE/TIME: 03/05/2021 10:42 AM INDICATION: Cervical radiculopathy. COMPARISON: No priors available. TECHNIQUE: MRI Cervical Spine without IV contrast. FINDINGS: The cervical spine is essentially in anatomic alignment with a trace of anterolisthesis at C2-C3 andC3-C4 with a trace of retrolisthesis at C4-C5. Vertebral body heights are maintained. No focal pathologic marrow replacement. No abnormal cord signal. No extraspinal abnormality. Craniovertebral junction and C1-C2: Mild degenerative changes otherwise unremarkable. C2-C3: Disc, facets, canal and foramina without significant abnormality. C3-C4: Slight disc osteophyte complex more to the left side with slight left uncinate spurring and tiny central disc protrusion. Facets within normal limits. Canal patent, right foramen patent, mild left neural foraminal encroachment. C4-C5: Mild disc osteophyte complex. Slight facet hypertrophy bilaterally. Minimal spinal canal encroachment, minimal bilateral neural foraminal narrowing. C5-C6: Decreased disc height, mild to moderate disc osteophyte complex more to the right side with small right paracentral-foraminal protrusion and uncinate spurring right more than left. Mild facet arthropathy bilaterally. Mild to moderate spinal canal narrowing, moderate to moderately severe right and mild/moderate left neural foraminal stenosis. C6-C7: Slight shallow central disc protrusion. Mild facet hypertrophy bilaterally. Minimal spinal canal narrowing, minimal neural foraminal narrowing bilaterally. C7-T1: Slightly diminished disc height, mild to moderate facet arthropathy. Canal and foramina patent. Impression IMPRESSION: 1. Right paracentral and foraminal protrusion with uncinate spurring C5-C6 with mild to moderate spinal canal narrowing and moderate to moderately severe right and mild to moderate left neural foraminal narrowing. 2. Multilevel degenerative disc and facet changes as described on a level by level basis elsewhere. Sandhya Heath LSW - 03/05/2021 11:22 AM CDT Care Management Discharge Note Discharge Date: 03/06/2021 Discharge Disposition: Home Discharge Services: insert operator/PT/OT MASONRY INSPECTOR Discharge DME: N/A Discharge Transportation: family or friend will provide Private pay costs discussed: Not applicable Education Provided on the Discharge Plan: yes Persons Notified of Discharge Plans: PT Patient/Family in Agreement with the Plan: yes Handoff Referral Completed: Yes Additional Information: 03/05/21 1100 [facility] ([facility] [phone] fax [phone]) PT able to d.c home today Will fax final d.c order to home care. Family to transport Sandhya CarlsonYOKO Huerta Bhavesh Lynn RN - 03/04/2021 6:06 PM CDT To Do: End of Shift Summary For vital signs and complete assessments, please see documentation flowsheets. Pertinent assessments: R side weakness improving, leg strength WDL, pt still using sera steady for restroom but getting stronger per pt Major Shift Events pain controlled with PO tramadol Treatment Plan: PT/OT, neurology Defer to primary service Bedside Nurse: Bhavesh Lynn RN Erika Henley PT - 03/04/2021 3:30 PM CDT 03/04/21 1530 Quick Adds Type of Visit Initial PT Evaluation Plant Engineering Supervisor Plant Engineering Supervisor Present no Language Afghan Living Environment People in home alone Current Living Arrangements house Home Accessibility stairs to enter home;stairs within home Number of Stairs, Main Entrance 2 Stair Railings, Main Entrance railing on right side (ascending) Number of Stairs, Within Home, Primary greater than 10 stairs Stair Railings, Within Home, Primary railing on right side (ascending) Transportation Anticipated family or friend will provide Living Environment Comments Pt. lives alone in [facility] with bedroom upstairs and railing on right side. Pt. does have small kitchen set up on second floor and could stay on couch/recliner onmain floor. Pt. may be able to have adult children assist with IADLs and some home setup. Pt. does have a cat. Self-Care Usual Activity Tolerance moderate Current Activity Tolerance fair Regular Exercise No Activity/Exercise/Self-Care Comment Pt. reports independence at baseline with ADLs and IADLs although does note some difficulty with stairs due to peripheral neuropathy and balance. Disability/Function Number of times patient has fallen within last six months 1 Change in Functional Status Since Onset of Current Illness/Injury yes General Information Onset of Illness/Injury or Date of Surgery 03/03/21 Referring Physician Sandeep Nunez, DO Patient/Family Therapy Goals Statement (PT) Feel better, go home later, when I feel better. Pertinent History of Current Problem (include personal factors and/or comorbidities that impact the POC) 65 year old??right-handed??male with a past medical history significant for hypertension,??GERD,hyperlipidemia, insomnia, noninsulin-dependent diabetes mellitus,??depression anxiety,??morbid obesity and sleep apnea on CPAP??who presents with??complaints of right-sided weakness??U>L,??grogginess and concerns for accidental medication misuse. Existing Precautions/Restrictions fall Weight-Bearing Status - RUE weight-bearing as tolerated Cognition Orientation Status (Cognition) oriented x 4 Affect/Mental Status (Cognition) sad/depressed affect Follows Commands (Cognition) WFL Behavioral Issues unable/difficult to assess Safety Deficit (Cognition) awareness of need for assistance;insight into deficits/self-awareness;moderate deficit;problem-solving Pain Assessment Patient Currently in Pain Yes, see Vital Sign flowsheet Posture Posture Forward head position;Protracted shoulders Posture Comments Pronounced slouching in bed and in sitting as well, able to come to upright posturewith tactile cues but unable to maintain 2/2 weakness/discomfort Range of Motion (ROM) ROM Comment B LE WFL; R UE limited elevation to ~80deg actively, with self-assit from other arm ableto bring to full range; full ROM passively, capsular end feel to shoulder flex/abd. Strength Strength Comments B LE grossly WFL, 4+/5 with B hip flex, 5/5 knee ext, ankle DF Bed Mobility Bed Mobility supine-sit Comment (Bed Mobility) min-modA Transfers Transfers sit-stand transfer Transfer Safety Comments Bill due to unsteadiness during initial 5s of standing, performed 3x. Endorsing I feel wobbly and sitting promptly, then endorsing dizziness. SBP 195, RN made aware Gait/Stairs (Locomotion) Comment (Gait/Stairs) Unable to attempt secondary to high blood pressure, SBP 195, RN made aware Balance Balance Comments Currently needs B UE support Sensory Examination Sensory Perception Comments Endorses B peripheral neuropathy at baseline, no new changes Coordination Coordination Comments No deficits in excess of weakness/stiffness Muscle Tone Muscle Tone Comments Globally stiff/restricted Clinical Impression Criteria for Skilled Therapeutic Intervention yes, treatment indicated PT Diagnosis (PT) Impaired fn mobility Influenced by the following impairments Strength, balance, ROM, pain Functional limitations due to impairments Bed mob, transfers, amb, stairs Clinical Presentation Evolving/Changing Clinical Presentation Rationale Multiple affecting comorbidities, assessment incl strength, balance,fn mobility. Clinical Decision Making (Complexity) moderate complexity Therapy Frequency (PT) Daily Predicted Duration of Therapy Intervention (days/wks) 3 days Planned Therapy Interventions (PT) bed mobility training;balance training;patient/family education;stair training;strengthening;gait training;neuromuscular re-education;stretching;transfer training Anticipated Equipment Needs at Discharge (PT) (Possible 2WW at d/c, shower chair(?)) Risk & Benefits of therapy have been explained evaluation/treatment results reviewed;care plan/treatment goals reviewed;risks/benefits reviewed;current/potential barriers reviewed;participants included;patient Clinical Impression Comments Adamantly refusing TCU but also acknowledges inability to access home env by himself at this time. PT Discharge Planning PT Discharge Recommendation (DC Rec) Transitional Care Facility PT Rationale for DC Rec At this time, pt limited by R UE decr ROM/brachial palsy, hypertension with SBP 195, RN made aware. Pt does present with mild B LE weakness, was able to tolerate standing x 3 with CGA before feeling dizzy. Needed min-modA with sup>sit, SBA with sit>supine, able to swing both legs back into bed on his own. Pt also does appear self-limiting. Unclear level of assistance at home. Does not appear safe to return home without assist. Recommend TCU but pt declining. If d/c to home, anticipate pt will need 24/7 supervision with fn mobility, issuance of 2WW, individual purchase of shower chair, and HHPT to address risk of falling and re-hospitalization. PT Brief overview of current status Bill with bed mob, CGA with sit<>stand. Hypertensive. Total Evaluation Time Total Evaluation Time (Minutes) 10 Coping Strategies Trust Relationship/Rapport care explained;choices provided;emotional support provided;empathic listening provided;questions answered;questions encouraged;reassurance provided;thoughts/feelings acknowledged Carrie Garvey, OT - 03/04/2021 1:04 PM CDT 03/04/21 1231 Quick Adds Type of Visit Initial Occupational Therapy Evaluation Living Environment People in home alone Current Living Arrangements other (see comments) ([address] [place] [address]) Home Accessibility stairs to enter home;stairs within home Number of Stairs, Main Entrance 2 Stair Railings, Main Entrance railing on right side (ascending) Number of Stairs, Within Home, Primary greater than 10 stairs Stair Railings, Within Home, Primary railing on right side (ascending) Transportation Anticipated car, drives self;family or friend will provide Living Environment Comments Pt. lives alone in [facility] with bedroom upstairs and railing on right side. Pt. does have small kitchen set up on second floor and could stay on couch/recliner onmain floor. Pt. may be able to have adult children assist with IADLs and some home setup. Pt. does have a cat. Self-Care Usual Activity Tolerance moderate Current Activity Tolerance poor Regular Exercise No Equipment Currently Used at Home shower chair Activity/Exercise/Self-Care Comment Pt. reports independence at baseline with ADLs and IADLs although does note some difficulty with stairs due to peripheral neuropathy and balance. Instrumental Activities of Daily Living (IADL) Previous Responsibilities meal prep;shopping;medication management;finances;driving IADL Comments pt. does have a house cleaning Disability/Function Hearing Difficulty or Deaf no Wear Glasses or Blind yes Concentrating, Remembering or Making Decisions Difficulty other (see comments) (further assessment needed) Difficulty Communicating no Difficulty Eating/Swallowing no Walking or Climbing Stairs Difficulty yes Walking or Climbing Stairs stair climbing difficulty, requires equipment Dressing/Bathing Difficulty no Toileting issues no Doing Errands Independently Difficulty (such as shopping) no Fall history within last six months yes Number of times patient has fallen within last six months 1 (pt. does report balance concerns) Change in Functional Status Since Onset of Current Illness/Injury yes General Information Onset of Illness/Injury or Date of Surgery 03/03/21 Referring Physician Sandeep Nunez Patient/Family Therapy Goal Statement (OT) regain sensation in R shoulder and strength in B LE to beable to return home Additional Occupational Profile Info/Pertinent History of Current Problem 65 year old right-handed male with a past medical history significant for hypertension, GERD, hyperlipidemia, insomnia, noninsulin-dependent diabetes mellitus, depression anxiety, morbid obesity and sleep apnea on CPAP who presen ts with complaints of right-sided weakness U>L, grogginess and concerns for accidental medicationmisuse, R brachial plexu palsy, mild rhabdo, back and knee pain Performance Patterns (Routines, Roles, Habits) Pt. reports he lives alone, retired, has a cat, and enjoys watching tv and football. Pt. also reports peripheral neuropathy impacting his ability with balance and ambulation. Existing Precautions/Restrictions fall Heart Disease Risk Factors Diabetes;Lack of physical activity;Overweight Cognitive Status Examination Orientation Status orientation to person, place and time Affect/Mental Status (Cognitive) other (see comments) (pt. reports feeling grogginess) Follows Commands increased processing time needed;follows one-step commands Safety Deficit insight into deficits/self-awareness Memory Deficit minimal deficit Executive Function Deficit insight/awareness of deficits;information processing;problem-solving/reasoning;self-monitoring/self-correction Cognitive Status Comments Cognition needs further assessment unsure if related to accidental overdose or baseline difficulties related to medication set up. Pt. reports family feels he sounds and seemsmore like himself today but pt. feels he is 50% of what is normal. Visual Perception Visual Impairment/Limitations WFL Sensory Sensory Comments B UE and LE peripheral at baseline, pt. noted changes to R UE sensation Pain Assessment Patient Currently in Pain Yes, see Vital Sign flowsheet Range of Motion Comprehensive Comment, General Range of Motion R UE PROM WFL, L UE AROM WFL Strength Comprehensive (MMT) Comment, General Manual Muscle Testing (MMT) Assessment L UE WFL, R elbow and wrist WFL, pt. unable to complete shoulder flexion, abduction, and external rotation against gravity. Coordination Upper Extremity Coordination Right UE impaired Functional Limitations Object transport impaired;Reach to targets impaired;Impaired ability to perform bilateral tasks Bed Mobility Comment (Bed Mobility) pt. able to scoot up and over in bed Transfers Transfer Comments pt. declined EOB or OOB activity secondary to B knee pain Balance Balance Comments pt. reports concerns at baseline and worried now even more Activities of Daily Living BADL Assessment toileting Toileting [place] Level (Toileting) supervision;set up;assist of 2;moderate assist (50% patient effort) Assistive Devices (Toileting) commode chair (Nikki Steady) Comment (Toileting) Pt. reports needing A x 1-2 Clinical Impression Criteria for Skilled Therapeutic Interventions Met (OT) yes;meets criteria;skilled treatment is necessary OT Diagnosis impaired independence, tolerance, and safety with ADLs and IADLs OT Problem List-Impairments impacting ADL activity tolerance impaired;balance;cognition;sensation;strength Assessment of Occupational Performance 3-5 Performance Deficits Identified Performance Deficits decreased reaching with R UE, decreased total body dressing, decreased pericare, G/H, decreased functional transfers, decreased standing tolerance, decreased problem solving/insight Planned Therapy Interventions (OT) ADL retraining;cognition;strengthening;transfer training;progressive activity/exercise;risk factor education Clinical Decision Making Complexity (OT) moderate complexity Therapy Frequency (OT) Daily Predicted Duration of Therapy 3 days Anticipated Equipment Needs Upon Discharge (OT) gait belt;raised toilet seat;washer engineer;shower chair;tub bench;commode chair Risk & Benefits of therapy have been explained evaluation/treatment results reviewed;care plan/treatment goals reviewed;risks/benefits reviewed;current/potential barriers reviewed;participants voiced agreement with care plan;participants included;patient OT Discharge Planning OT Discharge Recommendation (DC Rec) Transitional Care Facility;Home with assist;home with home careoccupational therapy OT Rationale for DC Rec Pt. currently needing A x 1-2 for functinal transfers, unable to complete stairs, needing setup and assist for toileting, bathring, G/H, dressing, and IADLs due to B knee pain, decreased balance, decreased cognition, and decreased R UE strength. Pt. lives alone in [facility] with 2 stairs to enter and 14 stairs up to bedroom with railing on right side (ascending). Pt. has noted difficulty with balance at baseline. Pt. reports could stay on couch on main floor if can do the two stairs into home and is motivated and planning to return home. Pt. declined OOB/EOB activity during OT eval due to B knee pain. If pt. is unable to complete functional transfers without assistance and complete stairs, pt. would require a TCU stay. If pt. is able to complete stairs and functional transfers with AD and DME, pt. would benefit from home with assist with home OT. Pt. would benefit from skilled IP OT for ADL training, functional transfer training, R UE HEP, funcitonal standing tasks, and further cognitive assessment/training to assist with medication management and problem solving/insight. OT Brief overview of current status Pt. currently needing A x 1-2 with functional transfers. Total Evaluation Time (Minutes) Total Evaluation Time (Minutes) 10 Romaine Eng MD - 03/04/2021 12:18 PM CDT Images from the original note were not included. [facility] Hospitalist Progress Note Admit 03/03/2021 9:44 AM Name: Jett Georges II Provider: Romaine Eng MD, [facility] Date of Service: 03/04/2021 Reason for Stay (Diagnosis): Right upper extremity weakness Summary of hospital stay & Assessment/Plan: Summary of Stay: Jett Georges II is a 65 year old male who was admitted on 03/03/2021 65 year old right-handed male with a past medical history significant for hypertension, GERD, hyperlipidemia, insomnia, noninsulin-dependent diabetes mellitus, depression anxiety, morbid obesity and sleep apnea on CPAP who presents with complaints of right-sided weakness U>L, grogginess and concerns for accidental medication misuse. Apparently he accidentally took 8 tablets of his tramadol in addition to his usual nighttime medications. Basically fell while walking the bathroom overnight and was too weak to get up so slept on the floor. Son called EMS this morning who found the patient on the floor wedged between the wall and thebed. EMS noted right arm drift otherwise other neuro is intact. ?? Upon arrival to the emergency room, vital signs were stable except he is mildly hypertensive with systolic in the 160s. Laboratory results shows mild hypokalemia, negative troponin and mild leukocytosis of 13.3K. Alcohol was negative. CT head and CT angiogram of the head/neck were negative but CT perfu flores scan did show questionable perfusion abnormality in the anterior temporal lobe. Stroke neurology was contacted emergency room. Recommended MRI. 325 mg aspirin was given. Patient was recommended for mission to the hospital for further evaluation. ?? #Right upper arm weakness, brachial plexus palsy perhaps from lying on the floor - Pt presents with RUE weakness characterized by inability to abduct or lift right arm. He is unableto raise his right arm without. His biceps/triceps strength appears to be adequate. Forearm wrist and finger strength appears to be intact. He has no tenderness to palpation, he has full passive range of motion without pain. MRI of the brain negative Neurology consultation is pending -Continue aspirin for now -Will need PT and OT evaluation especially he is right-hand dominant, will have difficulty driving and ADLs. ?? #Medication misuse -details are fairly unclear as patient is not a good historian -He thinks he might have taken 8 extra tablets of the tramadol (confusing it with trazodone) in addition to his evening medication which includes clonazepam, trazodone and Metformin -Fortunately home his vital signs are fairly stable, he has no hypoxia -I think some of his grogginess may be related to the increased pain meds, he will need help on discharge possibly home care ?? #Mild rhabdomyolysis #Mild hyponatremia --patient has mild rhabdomyolysis as he slept on the floor overnight --Fortunately no kidney involvement given normal creatinine ?? #Diabetes mellitus-blood sugar mildly elevated in the 180s --Okay to resume Metformin, increase dose to 1 g twice daily hemoglobin A1c is elevated consider adding glipizide, this will be deferred to his outpatient provider ?? #Hypertension-blood pressure stable for now, resume POULTRY KILLER lisinopril 20 mg, ?? #Anxiety-depression --Per pharmacy records he is on Zoloft daily, Seroquel 200 mg nightly, lorazepam as needed --Given his grogginess I will resume his Zoloft and POULTRY KILLER Seroquel for now but hold off on lorazepam ?? #Chronic back pain pain/gout --Patient is maintained on allopurinol, Neurontin 900 mg 3 times daily in addition to Mobic 15 mg daily --Resumed allopurinol and Mobic but decrease his Neurontin to 300 mg 3 times daily for now Consider decreasing Neurontin to 600 mg 3 times daily on discharge ?? #Hyperlipidemia resume statin ?? #History of some sleep apnea-we will resume CPAP DVT Prophylaxis: Pneumatic Compression Devices Code Status: Full Code Disposition Plan Expected discharge later today or tomorrow once he is seen and cleared by physical therapy and neurology Entered: Romaine Eng 03/04/2021, 12:18 PM Interval History: Still having weakness in the right upper extremity, reporting that tramadol works for him better than oxycodone and wants tramadol ordered Today's plan detailed above discussed with nursing Physical Exam: Physical Exam Temp: 99.6 ??F (37.6 ??C) Temp src: Oral BP: (!) 153/63 Pulse: 85 Resp: 16 SpO2: 91 % O2 Device: None (Room air) Vitals: 03/03/21 1004 03/03/21 1542 Weight: 131.5 kg (290 lb) 137.8 kg (303 lb 14.4 oz) I/O last 3 completed shifts: In: 480 [P.O.:480] Out: 2500 [Urine:2500] GENERAL: Comfortable. PSYCH: pleasant, oriented, No acute distress. EYES: PERRLA, Normal conjunctiva. HEART: Normal S1, S2 with no edema. LUNGS: Clear to auscultation, normal Respiratory effort. ABDOMEN: Soft, no hepatosplenomegaly, normal bowel sounds. SKIN: Dry to touch, No rash. Neuro: Continues to have decreased motor power in the right upper extremity subjectively reports is better, 4/5 , normal sensation, CN's Medications ??? allopurinol 300 mg Oral Daily ??? aspirin 81 mg Oral Daily ??? gabapentin 300 mg Oral TID ??? insulin aspart 1-7 Units Subcutaneous TID AC ??? insulin aspart 1-5 Units Subcutaneous At Bedtime ??? lisinopril 20 mg Oral Daily ??? meloxicam 15 mg Oral Daily ??? omeprazole 40 mg Oral Daily ??? QUEtiapine 200 mg Oral At Bedtime ??? sertraline 50 mg Oral Daily ??? simvastatin 20 mg Oral Daily with supper ??? tamsulosin 0.4 mg Oral Daily ??? traZODone 75 mg Oral At Bedtime Data -Data reviewed today: I personally reviewed all new labs and imaging results over the last 24 hours. Recent Labs Lab 03/04/21 0802 03/03/21 0958 WBC 8.6 13.3* HGB 12.4* 12.4* HCT 37.7* 38.3* MCV 87 87 PLT 290 283 Recent Labs Lab 03/04/21 1155 03/04/21 0802 03/04/21 0753 03/04/21 0218 03/03/21202803/03/21 1754 03/03/21 1547 03/03/21 0958 03/03/21 0958 NA -- 132* -- -- 128* -- 127* < > 126* POTASSIUM -- 4.4 -- -- -- -- -- -- 4.7 CHLORIDE -- 100 -- -- -- -- -- -- 92* CO2 -- 26 -- -- -- -- -- -- 25 ANIONGAP -- 6 -- -- -- -- -- -- 9 GLC 193* 203* 192* < > -- < > -- -- 180* BUN -- 6* -- -- -- -- -- -- 11 CR -- 0.65* -- -- -- -- -- -- 0.95 GFRESTIMATED -- >90 -- -- -- -- -- -- 83 TRACEE -- 8.8 -- -- -- -- -- -- 8.8 < > = values in this interval not displayed. Recent Results (from the past 24 hour(s)) MR Brain w/o & w Contrast Narrative MRI BRAIN WITHOUT AND WITH CONTRAST 03/03/2021 1:50 PM HISTORY: Neurological deficit, acute, stroke suspected. Weakness that began last night most pronounced in the right arm. TECHNIQUE: Multiplanar, multisequence MRI of the brain without and with 13.5 mL Gadavist. COMPARISON: None. FINDINGS: Diffusion-weighted images are normal. There is no evidence for intracranial hemorrhage or acute infarct. Mild cerebral atrophy is present. Minimal patchy white matter changes are seen in both hemispheres without mass effect. Postcontrast images do not show any abnormal areas of enhancement or any focal mass lesions. Impression IMPRESSION: 1. No evidence for intracranial hemorrhage, acute infarct, or any focal mass lesions. 2. Cerebral atrophy with minimal scattered white matters signal hyperintensities. The latter are nonspecific, but most likely due to chronic small vessel ischemic disease. JUAN LEAL MD SYSTEM ID: [id number] This document was produced using voice recognition software Pradeep Menendez MD - 03/03/2021 7:01 PM CDT CC Called with report of severe pain over bilat knees needing pain relief. I note that he was just admitted today with weakness, grogginess and suspected med misuse. PDMP indicates that he has been consistent with both Lorazepam 3 mg daily, gabapentin and tramadol 400 mg daily for more than a year. At this time, the patient is at risk of withdrawal both from Benzos and Narcotics. He also requires some pain control. Plan: 1. Cont Gabapentin. 2. Oxycodone 5 mg q 6 h prn 3. Lorazepam 1 mg BID. 4. Could also ask for medical chem dep consultation. KP documented in this encounter H&P Notes Carli Holder PA-C - 03/03/2021 2:41 PM CDT [employer] [employer] Admission History and Physical Examination NAME: Jett Georges II : 1955 Date of Admission: 03/03/2021 Assessment & Plan Jett Georges II is a 65 year old right-handed male with a past medical history significant for hypertension, GERD, hyperlipidemia, insomnia, noninsulin-dependent diabetes mellitus, depression anxiety, morbid obesity and sleep apnea on CPAP who presents with complaints of right-sided weakness U>L, grogginess and concerns for accidental medication misuse. Apparently he accidentally took 8 tablets of his tramadol in addition to his usual nighttime medications. Basically fell while walking the bathroom overnight and was too weak to get up so slept on the floor. Son called EMS this morning who found the patient on the floor wedged between the wall and thebed. EMS noted right arm drift otherwise other neuro is intact. Upon arrival to the emergency room, vital signs were stable except he is mildly hypertensive with systolic in the 160s. Laboratory results shows mild hypokalemia, negative troponin and mild leukocytosis of 13.3K. Alcohol was negative. CT head and CT angiogram of the head/neck were negative but CT perfu flores scan did show questionable perfusion abnormality in the anterior temporal lobe. Stroke neurology was contacted emergency room. Recommended MRI. 325 mg aspirin was given. Patient was recommended for mission to the hospital for further evaluation. #Right upper arm weakness, unclear if this is acute CVA vs some type of brachial plexus palsy perhaps from lying on the floor (though he denies any pain on exam) - Pt presents with RUE weakness characterized by inability to abduct or lift right arm. He is unableto raise his right arm without. His biceps/triceps strength appears to be adequate. Forearm wrist and finger strength appears to be intact. He has no tenderness to palpation, he has full passive range of motion without pain. -Preliminary CT scan shows questionable perfusion abnormality in the anterior temporal lobe -Seen by stroke neuro, await formal MRI of the brain -If MRI of the brain negative will need general neurology evaluation -Continue aspirin for now -Will need PT and OT evaluation especially he is right-hand dominant, will have difficulty driving and ADLs. HOSPITALIST ADDENDUM: MRI returned with no acute CVA. Suspect peripheral cause perhaps a palsy of some sort. May need additional MRI of the cervical spine, will need to have general neurology to consult. #Medication misuse -details are fairly unclear as patient is a terrible historian -He thinks he might have taken 8 extra tablets of the tramadol (confusing it with trazodone) in addition to his evening medication which includes clonazepam, trazodone and Metformin -Fortunately home his vital signs are fairly stable, he has no hypoxia -We will continue to monitor, will add supplemental O2 if needed -I think some of his grogginess may be related to the increased pain meds, will speak to family in regards to his medication set up #Mild rhabdomyolysis #Mild hyponatremia --patient has mild rhabdomyolysis as he slept on the floor overnight --Fortunately no kidney involvement given normal creatinine --Will need fluid hydration --Follow sodium and CK level --Check lactic acid #Diabetes mellitus-blood sugar mildly elevated in the 180s --Okay to resume Metformin, if lactic acid is normal --We will place on medium recent sliding scale --Last hemoglobin A1c 6.0 in 2018, will repeat #Hypertension-blood pressure stable for now, resume POULTRY KILLER lisinopril 20 mg, #Anxiety-depression --Per pharmacy records he is on Zoloft daily, Seroquel 200 mg nightly, lorazepam as needed --Given his grogginess I will resume his Zoloft and POULTRY KILLER Seroquel for now but hold off on lorazepam #Chronic back pain pain/gout --Patient is maintained on allopurinol, Neurontin 900 mg 3 times daily in addition to Mobic 15 mg daily --I will resume allopurinol and Mobic but decrease his Neurontin to 300 mg 3 times daily for now until his mental status clears #Hyperlipidemia resume statin #History of some sleep apnea-we will resume CPAP Awaiting formal pharmacy reconciliation to resume home medications. DVT Prophylaxis: Pneumatic Compression Devices Code Status: Full Code COVID PCR TESTING STATUS: Pending, Asymptomatic. No precautions. Family updated with plan of care: son Jett, via phone. May need TCU, acute rehab or Carli Holder PA-C Primary Care Physician Mario Keith Chief Complaint Weakness History is obtained from the patient, ED physician, chart review and patient's son Jett History of Present Illness Jett Georges II is a 65 year old right-handed male with a past medical history significant for hypertension, GERD, hyperlipidemia, insomnia, noninsulin-dependent diabetes mellitus, depression anxiety, morbid obesity and sleep apnea on CPAP who presents with complaints of right-sided weakness U>L, grogginess and concerns for accidental medication misuse. Initially history was very hard to obtain from the patient, I spoke to his son with more clarification. The patient typically puts all of his night medication in 1 pill bottle. He mistakenly took a different pill bottle thinking it was the bottle containing all of his evening meds. Unfortunately they were all tramadol. He thinks he might have taken 8 to 10 tablets. He walked to the bathroom was feeling groggy and weak and therefore slid to the floor but could not get himself back up. He thinks he might have slept on his right side overnight. This morning his son called he told him what had happenedin the patient sounded very groggy so son called EMS. EMS noted right arm drift and reported right leg weakness otherwise other neuro is intact. Upon arrival to the emergency room, vital signs were stable except he is mildly hypertensive with systolic in the 160s. Laboratory results shows mild hypokalemia, negative troponin and mild leukocytosis of 13.3K. Alcohol was negative. CT head and CT angiogram of the head/neck were negative but CT perfu flores scan did show questionable perfusion abnormality in the anterior temporal lobe. Stroke neurology was contacted emergency room. Recommended MRI. 325 mg aspirin was given. Patient was recommended for mission to the hospital for further evaluation. Past Medical History Hypertension, hyperlipidemia, chronic back pain, gout, diabetes, BPH Past Surgical History I have reviewed this patient's surgical history and updated it with pertinent information if needed. Past Surgical History: Procedure Laterality Date ??? C PLASTY KNEE,MED OR LAT COMPARTMT Bilateral 11/28/2017 Procedure: BILATERAL MEDIAL UNICOMPARTMENTAL ARTHROPLASTY ; Surgeon: Joseph Ramesh MD; Location: [facility]; Service: Orthopedics ??? GASTRIC BYPASS ??? HERNIA REPAIR ??? TONSILLECTOMY Prior to Admission Medications Prior to Admission Medications Prescriptions Last Dose Informant Patient Reported? Taking? LORazepam (ATIVAN) 1 MG tablet Yes No Sig: Take 1 mg by mouth 3 times daily as needed QUEtiapine (SEROQUEL) 200 MG tablet Yes No Sig: Take 200 mg by mouth At Bedtime allopurinol (ZYLOPRIM) 300 MG tablet Yes No Sig: Take 1 tablet by mouth daily aspirin (ASA) 81 MG chewable tablet Yes No Sig: Take 81 mg by mouth daily gabapentin (NEURONTIN) 300 MG capsule Yes No Sig: Take 900 mg by mouth 3 times daily lisinopril (ZESTRIL) 20 MG tablet Yes No Sig: Take 20 mg by mouth daily meloxicam (MOBIC) 15 MG tablet Yes No Sig: Take 15 mg by mouth daily metFORMIN (GLUCOPHAGE) 500 MG tablet Yes No Sig: Take 500 mg by mouth 3 times daily (with meals) omeprazole (PRILOSEC) [address] capsule Yes No Sig: Take 40 mg by mouth daily sertraline (ZOLOFT) 50 MG tablet Yes No Sig: Take 50 mg by mouth daily simvastatin (ZOCOR) 20 MG tablet Yes No Sig: Take 20 mg by mouth daily (with dinner) tamsulosin (FLOMAX) 0.4 MG capsule Yes No Sig: Take 0.4 mg by mouth daily traMADol (ULTRAM) 50 MG tablet Yes No Sig: Take 1-2 tablets by mouth every 6 hours as needed for pain traZODone (DESYREL) 50 MG tablet Yes No Sig: Take 75 mg by mouth 3 times daily Facility-Administered Medications: None Allergies Allergies Allergen Reactions ??? Zyban [Bupropion Hydrobromide] Mode Social History Patient retired. He was a former smoker. Notes that indicated below alcohol user states that he doesnot drink for the last year and a half. Family History Family history reviewed with patient and is noncontributory. Review of Systems The 10 point Review of Systems is negative other than noted in the HPI or here. Physical Exam Temp: 98.3 ??F (36.8 ??C) BP: (!) 148/90 Pulse: 65 Resp: (!) 7 SpO2: 95 % Vital Signs with Ranges Temp: [98.3 ??F (36.8 ??C)] 98.3 ??F (36.8 ??C) Pulse: [65-96] 65 Resp: [7-16] 7 BP: (123-168)/(75-149) 148/90 SpO2: [93 %-95 %] 95 % 290 lbs 0 oz Constitutional: Groggy, somewhat tangential, no apparent distress. Eyes: Conjunctiva and pupils examined and normal. HEENT: Moist mucous membranes, normal dentition. Respiratory: Clear to auscultation bilaterally, no crackles or wheezing. Cardiovascular: Regular rate and rhythm, normal S1 and S2, and no murmur noted. GI: Soft, non-distended, non-tender, bowel sounds present. No rebound tenderness or guarding. Lymph/Hematologic: No anterior cervical or supraclavicular adenopathy. Skin: No rashes, no cyanosis, no edema. Musculoskeletal: No deformities noted. No erythema or tenderness. Moving all extremities. Neurologic: Speech is clear. Cranial nerves II to XII intact, sensation intact in his face, tongue protrudes forward. Sensation intact in the upper and lower extremities. Finger strength is equal on both sides. Patient had decreased right arm deltoid strength he is unable to lift his right arm above 45 degree. When I raise his arm to his side is flops down. He is able to raise his right hand without using his left arm to lift the right. Psychiatric: Appropriate affect. Data Data reviewed today: Imaging: Recent Results (from the past 24 hour(s)) CT Head w/o Contrast Narrative CT SCAN OF THE HEAD WITHOUT CONTRAST 03/03/2021 10:13 AM HISTORY: Neurological deficit, acute, stroke suspected. Right arm weakness. TECHNIQUE: Axial images of the head and coronal reformations without IV contrast material. Radiation dose for this scan was reduced using automated exposure control, adjustment of the mA and/or kV according to patient size, or iterative reconstruction technique. COMPARISON: None. FINDINGS: Mild to moderate cerebral atrophy is present. There are some patchy white matter changes in both hemispheres without mass effect. There is no evidence for intracranial hemorrhage, mass effect, acute infarct, or skull fracture. Visualized paranasal sinuses and mastoid air cells are clear. Impression IMPRESSION: Chronic changes. No evidence for intracranial hemorrhage or any acute process. JUAN LEAL MD SYSTEM ID: [id number] CTA Head Neck with Contrast Narrative CTA HEAD/NECK WITH CONTRAST March 03, 2021 10:16 AM HISTORY: Neuro deficit, acute, stroke suspected. Right arm weakness. Code stroke. TECHNIQUE: Axial images were obtained through the head and neck with intravenous contrast. 70 mL of Isovue-370 was given. Multiplanar reconstructions were performed. 3-D reconstructions off a remote workstation for CT angiography were also acquired. Radiation dose for this scan was reduced using automated exposure control, adjustment of the mA and/or kV according to patient size, or iterative reconstruction technique. Carotid stenosis were evaluated by comparing the caliber of the proximal internal carotid arteries to the caliber of the distal internal carotid arteries. FINDINGS: Brachiocephalic vessels: Normal. Right carotid system: Mild calcific plaque is seen in the carotid bifurcation region. There is no significant stenosis or dissection. Left carotid system: Normal. Right vertebral artery: Normal. Left vertebral artery: There is some minimal distal calcific plaque. There is no stenosis or dissection. [place]: There is some mild calcific plaque in the carotid siphon regions bilaterally without stenosis. The basilar artery is patent. The proximal anterior, middle, and posterior cerebral arteries are patent. There is no evidence for thromboembolism or aneurysm. Impression IMPRESSION: 1. Mild atherosclerotic disease involving several vessels without any significant stenosis. 2. No evidence for significant stenosis, dissection, thromboembolism, or aneurysm. CT Head Perfusion w Contrast Narrative CT HEAD PERFUSION WITH CONTRAST 03/03/2021 10:19 AM HISTORY: Neurological deficit, acute, stroke suspected. Right arm weakness. TECHNIQUE: Axial images were obtained through the brain with intravenous contrast for CT brain perfusion imaging. Radiation dose for this scan was reduced using automated exposure control, adjustment of the mA and/or kV according to patient size, or iterative reconstruction technique. FINDINGS: Cerebral blood flow, cerebral blood volume, and mean transit time maps show some possible perfusion abnormality in the anterior left temporal lobe. This is not a definitive finding. This could just be artifactual. Perfusion images otherwise symmetric. Impression IMPRESSION: Questionable perfusion abnormality in the anterior temporal lobe. If clinically indicated, MRI might be helpful in further evaluation. JUAN LEAL MD SYSTEM ID: [id number] Recent Labs Lab 03/03/21 0958 03/03/2148 WBC 13.3* -- HGB 12.4* -- MCV 87 -- PLT 283 -- INR 0.94 -- NA 126* -- POTASSIUM 4.7 -- CHLORIDE 92* -- CO2 25 -- BUN 11 -- CR 0.95 -- ANIONGAP 9 -- TRACEE 8.8 -- GLC 180* 178* ALBUMIN 4.0 -- PROTTOTAL 7.6 -- BILITOTAL 0.4 -- ALKPHOS 60 -- ALT 32 -- AST 38 -- LIPASE 101 -- TROPONIN <0.015 -- Carli Holder PA-C [facility] Medicine March 03, 2021 Securely message with the [employer] Console (learn more here) Text page via [facility] Paging/Directory Associated attestation - Sandeep Nunez DO - 03/03/2021 3:37 PM CDT Physician Attestation I, Sandeep Nunez, saw and evaluated Jett Georges II as part of a shared visit. I have reviewed and discussed with the advanced practice provider their history, physical and plan. I personally reviewed the vital signs, medications, labs, and imaging. My carias history or physical exam findings: This is a patient who reportedly took 8 extra tablets of his tramadol overnight as he confused them with his other medications. This lead to him becoming so weak that he fell and couldn't get back up. His son found him and reports that he was not able to move either leg and his right arm. Carias management decisions made by me: The patient is really hoping to leave. I was able to talk him into staying as he will need evaluation by general neurology and physical therapy prior to expected discharge back home. Sandeep Nunez Date of Service (when I saw the patient): 03/03/21 documented in this encounter Consult Notes Veronica Murrell PA-C - 03/06/2021 10:51 AM CDTAssociated Order(s): ORTHOPEDIC SURGERY IP CONSULT [facility] Orthopedic Consultation Jett Georges II Age: [age] year old Date of : 1955 Date of Admission: 03/03/2021 Reason for consult: Right shoulder weakness Requesting physician: Senthil Zhao Level of consult: Consult, follow and place orders Assessment and Plan: Assessment: Transient right shoulder weakness, possible brachial plexus injury Plan: Brachial plexus MRI ordered Weakness likely not evolving from mechanical shoulder injury as patient reports being able to lift his shoulder last evening. If nerve injury present, could consider oral steroids. Continue passive ROM of shoulder to avoid adhesive capsulitis If MRI is negative, okay to discharge today from ortho standpoint and follow-up with Dr Degroot in 1 week to recheck shoulder function. Chief Complaint: Right shoulder weakness History of Present Illness: This patient is a 65 year old male who presents with the following condition requiring a hospital admission: Accidental medication misuse/confusion and weakness On 03/03/2021, patient was brought to the ED after accidentally taking 8 tablets of his tramadol in addition to his usual nighttime medications. He reports confusing the tramadol with his sleeping medication. He reports falling while walking the bathroom overnight and was too weak to get up so slept on the floor. Son called EMS in the morning who found the patient on the floor wedged between the walland the bed. Patient has been unable to lift his right shoulder since the fall. Both neurosurgery and neurology have been consulted ruling out any significant C-spine narrowing causing the weakness. Neurology recommends waiting 2-3 weeks before having him undergo an EMG. Patient reports that last evening, he had near full function of his right shoulder last evening but now is unable to lift it again.Denies pain or numbness. Past Medical History: No past medical history on file. Past Surgical History: Past Surgical History: Procedure Laterality Date ??? C PLASTY KNEE,MED OR LAT COMPARTMT Bilateral 11/28/2017 Procedure: BILATERAL MEDIAL UNICOMPARTMENTAL ARTHROPLASTY ; Surgeon: Joseph Ramesh MD; Location: [facility] OR; Service: Orthopedics ??? GASTRIC BYPASS ??? HERNIA REPAIR ??? TONSILLECTOMY Social History: Social History Tobacco Use ??? Smoking status: Former Smoker ??? Smokeless tobacco: Never Used Substance Use Topics ??? Alcohol use: Yes Alcohol/week: 3.0 standard drinks Comment: Alcoholic Drinks/day: none in last week, usual 4-5 beers a day Family History: No family history on file. Immunizations: VACCINE/DOSE Diptheria DPT DTAP HBIG Hepatitis A Hepatitis B HIB Influenza Measles Meningococcal MMR Mumps Pneumococcal Polio Rubella Small Pox TDAP Varicella Zoster Allergies: Allergies Allergen Reactions ??? Zyban [Bupropion Hydrobromide] Hives Medications: Current Facility-Administered Medications Medication ??? acetaminophen (TYLENOL) solution 650 mg ??? allopurinol (ZYLOPRIM) tablet 300 mg ??? aspirin (ASA) chewable tablet 81 mg ??? glucose gel 15-30 g Or ??? dextrose 50 % injection 25-50 mL Or ??? glucagon injection 1 mg ??? diazepam (VALIUM) tablet 5 mg ??? gabapentin (NEURONTIN) capsule 300 mg ??? insulin aspart (NovoLOG) injection (RAPID ACTING) ??? insulin aspart (NovoLOG) injection (RAPID ACTING) ??? lisinopril (ZESTRIL) tablet 20 mg ??? LORazepam (ATIVAN) tablet 0.5 mg ??? melatonin tablet 1 mg ??? meloxicam (MOBIC) tablet 15 mg ??? metFORMIN (GLUCOPHAGE) tablet 1,000 mg ??? naloxone (NARCAN) injection 0.2 mg Or ??? naloxone (NARCAN) injection 0.4 mg Or ??? naloxone (NARCAN) injection 0.2 mg Or ??? naloxone (NARCAN) injection 0.4 mg ??? omeprazole (priLOSEC) CR capsule 40 mg ??? ondansetron (ZOFRAN-ODT) ODT tab 4 mg Or ??? ondansetron (ZOFRAN) injection 4 mg ??? QUEtiapine (SEROquel) tablet 200 mg ??? senna-docusate (SENOKOT-S/PERICOLACE) 8.6-50 MG per tablet 1 tablet Or ??? senna-docusate (SENOKOT-S/PERICOLACE) 8.6-50 MG per tablet 2 tablet ??? sertraline (ZOLOFT) tablet 50 mg ??? simvastatin (ZOCOR) tablet 20 mg ??? tamsulosin (FLOMAX) capsule 0.4 mg ??? traMADol (ULTRAM) tablet 50-100 mg ??? traZODone (DESYREL) half-tab 75 mg Review of Systems: ROS: 10 point ROS neg other than the symptoms noted above in the HPI. Physical Exam: All vitals have been reviewed Patient Vitals for the past 24 hrs: BP Temp Temp src Pulse Resp SpO2 03/06/21 0722 (!) 197/80 -- Oral 63 18 94 % 03/05/21 2300 (!) 145/68 97.7 ??F (36.5 ??C) Oral 56 18 94 % 03/05/21 1545 (!) 174/82 97.7 ??F (36.5 ??C) Oral 67 18 95 % Intake/Output Summary (Last 24 hours) at 03/06/2021 1051 Last data filed at 03/06/2021 0800 Gross per 24 hour Intake 700 ml Output 2985 ml Net -2285 ml Physical Exam Temp: 97.7 ??F (36.5 ??C) Temp src: Oral BP: (!) 197/80 Pulse: 63 Resp: 18 SpO2: 94 % O2 Device: None (Room air) Vital Signs with Ranges Temp: [97.7 ??F (36.5 ??C)] 97.7 ??F (36.5 ??C) Pulse: [56-67] 63 Resp: [18] 18 BP: (145-197)/(68-82) 197/80 SpO2: [94 %-95 %] 94 % 303 lbs 14.4 oz Constitutional: Pleasant, alert, appropriate, following commands. HEENT: Head atraumatic normocephalic. Pupils equal round and reactive to light. Respiratory: Unlabored breathing no audible wheeze Cardiovascular: Regular rate and rhythm GI: Abdomen soft nontender nondistended. Lymph/Hematologic: No lymphadenopathy in areas examined Genitourinary: No villarreal Skin: No rashes, no cyanosis, no edema. Musculoskeletal: On physical exam of the right shoulder Skin: intact, no erythema or ecchymosis Swelling: no shoulder joint effusion Alignment: neutral, no deformity Tenderness to palpation No TTP throughout shoulder or C-spine ROM: Unable to actively abduct or flex the right shoulder. Able to passively range the shoulder withfull ROM, denies pain throughout all planes of motion. Full function or right elbow, wrist and fingers. Equal strength with resisted elbow, wrist and finger flexion/extension. Able to abduct right thumb. Distal pulses are intact and equal bilaterally Sensation to light touch intact and equal bilaterally. Neurologic: normal without focal findings, mental status, speech normal, alert and oriented x iii Neuropsychiatric: stable Data: All laboratory data reviewed Results for orders placed or performed during the hospital encounter of 03/03/21 CT Head Perfusion w Contrast Status: None Narrative CT HEAD PERFUSION WITH CONTRAST 03/03/2021 10:19 AM HISTORY: Neurological deficit, acute, stroke suspected. Right arm weakness. TECHNIQUE: Axial images were obtained through the brain with intravenous contrast for CT brain perfusion imaging. Radiation dose for this scan was reduced using automated exposure control, adjustment of the mA and/or kV according to patient size, or iterative reconstruction technique. FINDINGS: Cerebral blood flow, cerebral blood volume, and mean transit time maps show some possible perfusion abnormality in the anterior left temporal lobe. This is not a definitive finding. This could just be artifactual. Perfusion images otherwise symmetric. Impression IMPRESSION: Questionable perfusion abnormality in the anterior temporal lobe. If clinically indicated, MRI might be helpful in further evaluation. JUAN LEAL MD SYSTEM ID: [id number] CT Head w/o Contrast Status: None Narrative CT SCAN OF THE HEAD WITHOUT CONTRAST 03/03/2021 10:13 AM HISTORY: Neurological deficit, acute, stroke suspected. Right arm weakness. TECHNIQUE: Axial images of the head and coronal reformations without IV contrast material. Radiation dose for this scan was reduced using automated exposure control, adjustment of the mA and/or kV according to patient size, or iterative reconstruction technique. COMPARISON: None. FINDINGS: Mild to moderate cerebral atrophy is present. There are some patchy white matter changes in both hemispheres without mass effect. There is no evidence for intracranial hemorrhage, mass effect, acute infarct, or skull fracture. Visualized paranasal sinuses and mastoid air cells are clear. Impression IMPRESSION: Chronic changes. No evidence for intracranial hemorrhage or any acute process. JUAN LEAL MD SYSTEM ID: DLOES CTA Head Neck with Contrast Status: None Narrative CTA HEAD/NECK WITH CONTRAST March 03, 2021 10:16 AM HISTORY: Neuro deficit, acute, stroke suspected. Right arm weakness. Code stroke. TECHNIQUE: Axial images were obtained through the head and neck with intravenous contrast. 70 mL of Isovue-370 was given. Multiplanar reconstructions were performed. 3-D reconstructions off a remote workstation for CT angiography were also acquired. Radiation dose for this scan was reduced using automated exposure control, adjustment of the mA and/or kV according to patient size, or iterative reconstruction technique. Carotid stenosis were evaluated by comparing the caliber of the proximal internal carotid arteries to the caliber of the distal internal carotid arteries. FINDINGS: Brachiocephalic vessels: Normal. Right carotid system: Mild calcific plaque is seen in the carotid bifurcation region. There is no significant stenosis or dissection. Left carotid system: Normal. Right vertebral artery: Normal. Left vertebral artery: There is some minimal distal calcific plaque. There is no stenosis or dissection. [place]: There is some mild calcific plaque in the carotid siphon regions bilaterally without stenosis. The basilar artery is patent. The proximal anterior, middle, and posterior cerebral arteries are patent. There is no evidence for thromboembolism or aneurysm. Impression IMPRESSION: 1. Mild atherosclerotic disease involving several vessels without any significant stenosis. 2. No evidence for significant stenosis, dissection, thromboembolism, or aneurysm. JUAN LEAL MD SYSTEM ID: DLOES MR Brain w/o & w Contrast Status: None Narrative MRI BRAIN WITHOUT AND WITH CONTRAST 03/03/2021 1:50 PM HISTORY: Neurological deficit, acute, stroke suspected. Weakness that began last night most pronounced in the right arm. TECHNIQUE: Multiplanar, multisequence MRI of the brain without and with 13.5 mL Gadavist. COMPARISON: None. FINDINGS: Diffusion-weighted images are normal. There is no evidence for intracranial hemorrhage or acute infarct. Mild cerebral atrophy is present. Minimal patchy white matter changes are seen in both hemispheres without mass effect. Postcontrast images do not show any abnormal areas of enhancement or any focal mass lesions. Impression IMPRESSION: 1. No evidence for intracranial hemorrhage, acute infarct, or any focal mass lesions. 2. Cerebral atrophy with minimal scattered white matters signal hyperintensities. The latter are nonspecific, but most likely due to chronic small vessel ischemic disease. JUAN LEAL MD SYSTEM ID: DLOES MR Cervical Spine w/o Contrast Status: None Narrative EXAM: MR CERVICAL SPINE W/O CONTRAST LOCATION: [facility] DATE/TIME: 03/05/2021 10:42 AM INDICATION: Cervical radiculopathy. COMPARISON: No priors available. TECHNIQUE: MRI Cervical Spine without IV contrast. FINDINGS: The cervical spine is essentially in anatomic alignment with a trace of anterolisthesis at C2-C3 andC3-C4 with a trace of retrolisthesis at C4-C5. Vertebral body heights are maintained. No focal pathologic marrow replacement. No abnormal cord signal. No extraspinal abnormality. Craniovertebral junction and C1-C2: Mild degenerative changes otherwise unremarkable. C2-C3: Disc, facets, canal and foramina without significant abnormality. C3-C4: Slight disc osteophyte complex more to the left side with slight left uncinate spurring and tiny central disc protrusion. Facets within normal limits. Canal patent, right foramen patent, mild left neural foraminal encroachment. C4-C5: Mild disc osteophyte complex. Slight facet hypertrophy bilaterally. Minimal spinal canal encroachment, minimal bilateral neural foraminal narrowing. C5-C6: Decreased disc height, mild to moderate disc osteophyte complex more to the right side with small right paracentral-foraminal protrusion and uncinate spurring right more than left. Mild facet arthropathy bilaterally. Mild to moderate spinal canal narrowing, moderate to moderately severe right and mild/moderate left neural foraminal stenosis. C6-C7: Slight shallow central disc protrusion. Mild facet hypertrophy bilaterally. Minimal spinal canal narrowing, minimal neural foraminal narrowing bilaterally. C7-T1: Slightly diminished disc height, mild to moderate facet arthropathy. Canal and foramina patent. Impression IMPRESSION: 1. Right paracentral and foraminal protrusion with uncinate spurring C5-C6 with mild to moderate spinal canal narrowing and moderate to moderately severe right and mild to moderate left neural foraminal narrowing. 2. Multilevel degenerative disc and facet changes as described on a level by level basis elsewhere. Comprehensive metabolic panel Status: Abnormal Result Value Ref Range Sodium 126 (L) 133 - 144 mmol/L Potassium 4.7 3.4 - 5.3 mmol/L Chloride 92 (L) 94 - 109 mmol/L Carbon Dioxide (CO2) 25 20 - 32 mmol/L Anion Gap 9 3 - 14 mmol/L Urea Nitrogen 11 7 - 30 mg/dL Creatinine 0.95 0.66 - 1.25 mg/dL Calcium 8.8 8.5 - 10.1 mg/dL Glucose 180 (H) 70 - 99 mg/dL Alkaline Phosphatase 60 40 - 150 U/L AST 38 0 - 45 U/L ALT 32 0 - 70 U/L Protein Total 7.6 6.8 - 8.8 g/dL Albumin 4.0 3.4 - 5.0 g/dL Bilirubin Total 0.4 0.2 - 1.3 mg/dL GFR Estimate 83 >60 mL/min/1.73m2 Lipase Status: Normal Result Value Ref Range Lipase 101 73 - 393 U/L Troponin I Status: Normal Result Value Ref Range Troponin I <0.015 0.000 - 0.045 ug/L Ethyl Alcohol Level Status: Normal Result Value Ref Range Alcohol ethyl <0.01 <=0.01 g/dL UA with Microscopic reflex to Culture Status: Abnormal Specimen: Urine, Midstream Result Value Ref Range Color Urine Light Yellow Colorless, Straw, Light Yellow, Yellow Appearance Urine Clear Clear Glucose Urine 150 (A) Negative mg/dL Bilirubin Urine Negative Negative Ketones Urine Negative Negative mg/dL Specific [place] Urine 1.017 1.003 - 1.035 Blood Urine Negative Negative pH Urine 5.5 5.0 - 7.0 Protein Albumin Urine Negative Negative mg/dL Urobilinogen Urine Normal Normal, 2.0 mg/dL Nitrite Urine Negative Negative Leukocyte Esterase Urine Negative Negative Mucus Urine Present (A) None Seen /LPF Uric Acid Crystals Urine Few (A) None Seen /HPF RBC Urine 1 <=2 /HPF WBC Urine 1 <=5 /HPF Squamous Epithelials Urine <1 <=1 /HPF Hyaline Casts Urine 1 <=2 /LPF Narrative Urine Culture not indicated Glucose by meter Status: Abnormal Result Value Ref Range GLUCOSE BY METER POCT 178 (H) 70 - 99 mg/dL CBC with platelets and differential Status: Abnormal Result Value Ref Range WBC Count 13.3 (H) 4.0 - 11.0 10e3/uL RBC Count 4.43 4.40 - 5.90 10e6/uL Hemoglobin 12.4 (L) 13.3 - 17.7 g/dL Hematocrit 38.3 (L) 40.0 - 53.0 % MCV 87 78 - 100 fL MCH 28.0 26.5 - 33.0 pg MCHC 32.4 31.5 - 36.5 g/dL RDW 12.7 10.0 - 15.0 % Platelet Count 283 150 - 450 10e3/uL % Neutrophils 79 % % Lymphocytes 11 % % Monocytes 7 % % Eosinophils 1 % % Basophils 1 % % Immature Granulocytes 1 % NRBCs per 100 WBC 0 <1 /100 Absolute Neutrophils 10.7 (H) 1.6 - 8.3 10e3/uL Absolute Lymphocytes 1.4 0.8 - 5.3 10e3/uL Absolute Monocytes 1.0 0.0 - 1.3 10e3/uL Absolute Eosinophils 0.1 0.0 - 0.7 10e3/uL Absolute Basophils 0.1 0.0 - 0.2 10e3/uL Absolute Immature Granulocytes 0.1 (H) <=0.0 10e3/uL Absolute NRBCs 0.0 10e3/uL Extra Blue Top Tube Status: None Result Value Ref Range Hold Specimen JIC Extra Green Top ([place] Heparin) Tube Status: None Result Value Ref Range Hold Specimen JIC Extra Purple Top Tube Status: None Result Value Ref Range Hold Specimen JIC INR Status: Normal Result Value Ref Range INR 0.94 0.85 - 1.15 Partial thromboplastin time Status: Normal Result Value Ref Range aPTT 32 22 - 38 Seconds CK total Status: Abnormal Result Value Ref Range CK 1,145 (HH) 30 - 300 U/L Lipid Profile Status: Abnormal Result Value Ref Range Cholesterol 152 <200 mg/dL Triglycerides 168 (H) <150 mg/dL Direct Measure HDL 52 >=40 mg/dL LDL Cholesterol Calculated 66 <=100 mg/dL Non HDL Cholesterol 100 <130 mg/dL Narrative Cholesterol Desirable: <200 mg/dL Triglycerides Normal: Less than 150 mg/dL Borderline High: 150-199 mg/dL High: 200-499 mg/dL Very High: Greater than or equal to 500 mg/dL Direct Measure HDL Female: Greater than or equal to 50 mg/dL Male: Greater than or equal to 40 mg/dL LDL Cholesterol Desirable: <100mg/dL Above Desirable: 100-129 mg/dL Borderline High: 130-159 mg/dL High: 160-189 mg/dL Very High: >= 190 mg/dL Non HDL Cholesterol Desirable: 130 mg/dL Above Desirable: 130-159 mg/dL Borderline High: 160-189 mg/dL High: 190-219 mg/dL Very High: Greater than or equal to 220 mg/dL Asymptomatic COVID-19 Virus (Coronavirus) by PCR Nasopharyngeal Status: Normal Specimen: Nasopharyngeal; Swab Result Value Ref Range SARS CoV2 PCR Negative Negative Narrative Testing was performed using the octavia?? SARS-CoV-2 & Influenza A/B Assay on the octavia?? Niki?? System. This test should be ordered for the detection of SARS-COV-2 in individuals who meet SARS-CoV-2 clinical and/or epidemiological criteria. Test performance is unknown in asymptomatic patients. This test is for in vitro diagnostic use under the FDA EUA for laboratories certified under CLIA to perform moderate and/or high complexity testing. This test has not been FDA cleared or approved. A negative test does not rule out the presence of PCR inhibitors in the specimen or target RNA in concentration below the limit of detection for the assay. The possibility of a false negative should be considere d if the patient's recent exposure or clinical presentation suggests COVID-19. [facility] are certified under the Clinical Laboratory Improvement Amendments of 1988 (CLIA-88) as qualified to perform moderate and/or high complexity laboratory testing. Lactic acid whole blood Status: Abnormal Result Value Ref Range Lactic Acid 2.2 (H) 0.7 - 2.0 mmol/L Hemoglobin A1c Status: Abnormal Result Value Ref Range Hemoglobin A1C 8.1 (H) 0.0 - 5.6 % Sodium Status: Abnormal Result Value Ref Range Sodium 127 (L) 133 - 144 mmol/L Sodium Status: Abnormal Result Value Ref Range Sodium 128 (L) 133 - 144 mmol/L Lactic acid whole blood Status: Normal Result Value Ref Range Lactic Acid 1.4 0.7 - 2.0 mmol/L Glucose by meter Status: Abnormal Result Value Ref Range GLUCOSE BY METER POCT 131 (H) 70 - 99 mg/dL Glucose by meter Status: Abnormal Result Value Ref Range GLUCOSE BY METER POCT 250 (H) 70 - 99 mg/dL Basic metabolic panel Status: Abnormal Result Value Ref Range Sodium 132 (L) 133 - 144 mmol/L Potassium 4.4 3.4 - 5.3 mmol/L Chloride 100 94 - 109 mmol/L Carbon Dioxide (CO2) 26 20 - 32 mmol/L Anion Gap 6 3 - 14 mmol/L Urea Nitrogen 6 (L) 7 - 30 mg/dL Creatinine 0.65 (L) 0.66 - 1.25 mg/dL Calcium 8.8 8.5 - 10.1 mg/dL Glucose 203 (H) 70 - 99 mg/dL GFR Estimate >90 >60 mL/min/1.73m2 CBC with platelets Status: Abnormal Result Value Ref Range WBC Count 8.6 4.0 - 11.0 10e3/uL RBC Count 4.33 (L) 4.40 - 5.90 10e6/uL Hemoglobin 12.4 (L) 13.3 - 17.7 g/dL Hematocrit 37.7 (L) 40.0 - 53.0 % MCV 87 78 - 100 fL MCH 28.6 26.5 - 33.0 pg MCHC 32.9 31.5 - 36.5 g/dL RDW 13.1 10.0 - 15.0 % Platelet Count 290 150 - 450 10e3/uL CK total Status: Abnormal Result Value Ref Range CK 729 (H) 30 - 300 U/L Glucose by meter Status: Abnormal Result Value Ref Range GLUCOSE BY METER POCT 168 (H) 70 - 99 mg/dL Glucose by meter Status: Abnormal Result Value Ref Range GLUCOSE BY METER POCT 192 (H) 70 - 99 mg/dL Glucose by meter Status: Abnormal Result Value Ref Range GLUCOSE BY METER POCT 193 (H) 70 - 99 mg/dL Glucose by meter Status: Abnormal Result Value Ref Range GLUCOSE BY METER POCT 146 (H) 70 - 99 mg/dL Glucose by meter Status: Abnormal Result Value Ref Range GLUCOSE BY METER POCT 139 (H) 70 - 99 mg/dL Glucose by meter Status: Abnormal Result Value Ref Range GLUCOSE BY METER POCT 132 (H) 70 - 99 mg/dL Glucose by meter Status: Abnormal Result Value Ref Range GLUCOSE BY METER POCT 171 (H) 70 - 99 mg/dL Glucose by meter Status: Abnormal Result Value Ref Range GLUCOSE BY METER POCT 137 (H) 70 - 99 mg/dL Glucose by meter Status: Abnormal Result Value Ref Range GLUCOSE BY METER POCT 143 (H) 70 - 99 mg/dL Glucose by meter Status: Abnormal Result Value Ref Range GLUCOSE BY METER POCT 194 (H) 70 - 99 mg/dL Glucose by meter Status: Abnormal Result Value Ref Range GLUCOSE BY METER POCT 165 (H) 70 - 99 mg/dL EKG 12-lead, tracing only Status: None Result Value Ref Range Systolic Blood Pressure mmHg Diastolic Blood Pressure mmHg Ventricular Rate 83 BPM Atrial Rate 83 BPM WI Interval 246 ms QRS Duration 122 ms QT 394 ms QTc 462 ms P [place] 69 degrees R AXIS -72 degrees T [place] 19 degrees Interpretation ECG Sinus rhythm with 1st degree A-V block with occasional Premature ventricular complexes Left anterior fascicular block Abnormal ECG No previous ECGs available Neurology IP Consult: General (non-stroke/non-ICU); Patient to be seen: Routine - within 24 hours; right arm weakness, palsy?; Business Analysis Analyst may enter orders: Yes; Requesting provider? Hospitalist (if different from attending physician) Status: None () Praful Fraga MD 03/04/2021 1:37 PM HOSPITAL NEUROLOGY History of the Present Illness: 65 year old male presents to the ER yesterday (03/03/2021) complaining of generalized (and later more right sided) weakness in the context of accidentally taking too many tramadol tablets the previous evening. He explains how he 'took too many pills' two nights ago. I grabbed the wrong bottle. He remembers trying to go to the bathroom and I couldn't walk, I was so doped up, and I fell on the floor. He does not recall if he landed on his shoulder. He felt too weak to get up, so just stayed on the floor, I slept well. He assumes he slept on this right shoulder. He woke up around 8AM the next morning. He noted that his right shoulder was in a lot of pain. He was strong enough at this point to pull himself up and call his sons. His knees were sore at the time too. He is not sure if the arm was weak and initially suspected that limitation in movement was primarily from the pain. His knees initially felt weak too but this was better the next morning. He felt he was 'off' nothing specific but speech was off. His right arm is felt to be better now but still unable to hold it up (and this is despite great improvement in pain). He has some numbness in the feet and legs, but states 'always' like this from neuropathy, this is baseline. No other new symptoms, no incontinence. The pain in the right arm is much better. He feels the weakness is better as well.; No shooting pain. No neck pain. Of note, apparently has baseline leg pain from diabetic neuropathy. Review of systems: Constitutional: As mentioned above. No fevers, weight loss. No recent surgeries Eyes: No blurred vision, eye congestion, ptosis, miosis, or diplopia ENT: No hearing loss or tinnitus, no rhinorrhea Cardiovascular: No chest pain or palpitation Respiratory: No shortness of breath Gastrointestinal: No abdominal pain, diarrhea or constipation Genitourinary: No burning on micturition Musculoskeletal: +see above Skin: No rash Neurological: As mentioned above. Psychiatric: No anxiety, depression All other systems negative or as noted in the history of the present illness. No past medical history on file. - history of HTN, diabetes, alcohol abuse per notes (states he does not drink anymore), diabetic neuropathy Past Surgical History: Procedure Laterality Date ??? C PLASTY KNEE,MED OR LAT COMPARTMT Bilateral 11/28/2017 Procedure: BILATERAL MEDIAL UNICOMPARTMENTAL ARTHROPLASTY ; Surgeon: Joseph Ramesh MD; Location: [facility]; Service: Orthopedics ??? GASTRIC BYPASS ??? HERNIA REPAIR ??? TONSILLECTOMY Social History Tobacco Use ??? Smoking status: Former Smoker ??? Smokeless tobacco: Never Used Substance Use Topics ??? Alcohol use: Yes Alcohol/week: 3.0 standard drinks Comment: Alcoholic Drinks/day: none in last week, usual 4-5 beers a day ??? Drug use: No No family history on file. No pertinent neurologic family history Current Facility-Administered Medications: ??? allopurinol (ZYLOPRIM) tablet 300 mg, 300 mg, Oral, Daily, Carli Holder PA-C, 300 mg at 03/04/21 0805 ??? aspirin (ASA) chewable tablet 81 mg, 81 mg, Oral, Daily, Carli Holder PA-C, 81 mg at 03/04/21 0806 ??? glucose gel 15-30 g, 15-30 g, Oral, Q15 Min PRN OR dextrose 50 % injection 25-50 mL, 25-50 mL, Intravenous, Q15 Min PRN OR glucagon injection 1 mg, 1 mg, Subcutaneous, Q15 Min PRN, Holder, Carli Vogel PA-C ??? gabapentin (NEURONTIN) capsule 300 mg, 300 mg, Oral, TID, Holder, Carli Vogel PA-C, 300 mg at 03/04/21 0805 ??? insulin aspart (NovoLOG) injection (RAPID ACTING), 1-7 Units, Subcutaneous, TID AC, Holder, Carli Vogel PA-C, 2 Units at 03/04/21 0808 ??? insulin aspart (NovoLOG) injection (RAPID ACTING), 1-5 Units, Subcutaneous, At Bedtime, Holder, Carli Vogel PA-C, 2 Units at 03/03/212041 ??? lisinopril (ZESTRIL) tablet 20 mg, 20 mg, Oral, Daily, Holder, Carli Vogel PA-C, 20 mg at 03/04/21 08 ??? LORazepam (ATIVAN) tablet 0.5 mg, 0.5 mg, Oral, Q4H PRN, Pradeep Menendez MD ??? melatonin tablet 1 mg, 1 mg, Oral, At Bedtime PRN, Glory, Carli Vogel PA-C ??? meloxicam (MOBIC) tablet 15 mg, 15 mg, Oral, Daily, Holder, Carli Vogel PA-C, 15 mg at 03/04/21 08 ??? naloxone (NARCAN) injection 0.2 mg, 0.2 mg, Intravenous, Q2 Min PRN OR naloxone (NARCAN) injection 0.4 mg, 0.4 mg, Intravenous, Q2 Min PRN OR naloxone (NARCAN) injection 0.2 mg, 0.2 mg, Intramuscular, Q2 Min PRN OR naloxone (NARCAN) injection 0.4 mg, 0.4 mg, Intramuscular, Q2 Min PRN, Pradeep Menendez MD ??? omeprazole (priLOSEC) CR capsule 40 mg, 40 mg, Oral, Daily, Holder, Carli Vogel PA-C, 40 mg at 03/04/21 08 ??? ondansetron (ZOFRAN-ODT) ODT tab 4 mg, 4 mg, Oral, Q6H PRN OR ondansetron (ZOFRAN) injection 4 mg, 4 mg, Intravenous, Q6H PRN, Carli Holder PA-C ??? QUEtiapine (SEROquel) tablet 200 mg, 200 mg, Oral, At Bedtime, Glory, Carli Vogel PA-C, 200 mg at 03/03/21 1944 ??? senna-docusate (SENOKOT-S/PERICOLACE) 8.6-50 MG per tablet 1 tablet, 1 tablet, Oral, BID PRN OR senna-docusate (SENOKOT-S/PERICOLACE) 8.6-50 MG per tablet 2 tablet, 2 tablet, Oral, BID PRN, Carli Holder PA-C ??? sertraline (ZOLOFT) tablet 50 mg, 50 mg, Oral, Daily, Holder, Carli Vogel PA-C, 50 mg at 03/04/21 0806 ??? simvastatin (ZOCOR) tablet 20 mg, 20 mg, Oral, Daily with supper, Holder, Carli Vogel PA-C, 20 mg at 03/03/21 1758 ??? sodium chloride 0.9% infusion, , Intravenous, Continuous, Carli Holder PA-C, Last Rate: 100 mL/hr at 03/04/21 0400, 1,000 mL at 03/04/21 0400 ??? tamsulosin (FLOMAX) capsule 0.4 mg, 0.4 mg, Oral, Daily, Holder, Carli Vogel PA-C, 0.4 mg at 03/04/21 0806 ??? traMADol (ULTRAM) tablet 50-100 mg, 50-100 mg, Oral, Q6H PRN, Romaine Eng MD, 50 mg at 03/04/21 1023 ??? traZODone (DESYREL) half-tab 75 mg, 75 mg, Oral, At Bedtime, Holder, Carli Vogel PA-C, 75 mg at 03/03/21 194 Allergies: Allergies Allergen Reactions ??? Zyban [Bupropion Hydrobromide] Hives Physical Examination: BP (!) 153/63 (BP Location: Right arm) Pulse 85 Temp 99.6 ??F (37.6 ??C) (Oral) Resp 16 Ht 1.803 m (5' 11) Wt 137.8 kg (303 lb 14.4 oz) SpO2 91% BMI 42.39 kg/m?? Body mass index is 42.39 kg/m??. GEN: Alert. NAD. Normal affect. Cooperative. HEENT: Normocephalic / atraumatic NECK/BACK: No meningismus. No significant paraspinal neck or shoulder musculature pain. CV: RRR. EXT: No cyanosis. No edema. No erythema. SKIN: No rashes. No lesions. NEUROLOGICAL: MENTAL STATUS: Alert and oriented. Thought process and content unremarkable. Follows commands appropriately. Speech fluent. CN: II: Visual valentin intact. PERRLA. III, IV, : EOMI. V: Symmetric facial sensation to light touch. VII: Face symmetric. VIII: Hearing symmetric. No nystagmus. IX, X: Symmetric palatal rise. XI: Symmetric shoulder shrug. XII: Tongue midline with symmetric movements. 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 No clonus. SENSATION: PP, light touch intact and symmetric . CEREBELLAR: Normal F-N-F (on left, could not assess on right given weakness). No dysmetria. No nystagmus. GAIT: deferred Review of Diagnostics: I personally reviewed and interpreted the following: Results for JETT GEORGES II ( ) as of 03/04/2021 12:14 03/04/2021 08:02 Sodium 132 (L) Potassium 4.4 Chloride 100 Carbon Dioxide 26 Urea Nitrogen 6 (L) Creatinine 0.65 (L) GFR Estimate >90 Calcium 8.8 Complete Blood Count: Recent Labs Lab Test 03/04/21 0802 03/03/21 0958 11/29/17 0617 WBC 8.6 13.3* 7.7 RBC 4.33* 4.43 3.65* HGB 12.4* 12.4* 10.3* HCT 37.7* 38.3* 30.9* PLT 290 283 177 LYMPH -- 11 -- HgA1c: Lab Results Component Value Date A1C 8.1 (H) 03/03/2021 CK Total - 729 <--- 1145 Ethanol (03/03) negative MRI Brain without and with Contrast (03/03/2021) IMPRESSION: 1. No evidence for intracranial hemorrhage, acute infarct, or any focal mass lesions. 2. Cerebral atrophy with minimal scattered white matters signal hyperintensities. The latter are nonspecific, but most likely due to chronic small vessel ischemic disease. Impression: Mr. Georges is a 65 year old male admitted 03/03 after accidentally overdosing on tramadol leading to a fall. He ended up being unable to get himself up and slept that night in an unclear position. He is now left with profound weakness of shoulder abduction on the right side. While he initially had significant shoulder pain, this now has improved. There is no corresponding sensory loss. Assessment of reflexes was limited by difficulty relaxing the limb, but I was unable to obtain a biceps reflex. I doubt the questionable weakness of the left hip flexors is related, unlike the shoulder weakness, this involved significant give-way and reports of pain suggesting a functional limitation. Given the lack of weakness in the biceps and lack of any sensory deficit, this is not entirely consistent with an injury to the C5 nerve root, upper trunk of the brachial plexus, or axillary nerve (though the first two could explain the lack of the biceps reflex). I will need to defer to the primary service as to workup for any other soft tissue/rotator cuff or joint problem. Though I will note the absence of significant pain in these areas (though I have no familiarity with assessment for injury to these areas). But in the absence of another explanation, I would start with an MRI of the cervical spine. Recommendations: - Defer to primary service assessment for injury to joint / soft tissue structures, if there is no obvious alternative cause, would order an MRI Cervical Spine without Contrast Praful Gaytan MD (general neurology) [facility] [phone] 1. Acute right-sided weakness Care Management / Social Work IP Consult Status: None () Narrative Sandhya Heath, CONTRACT DRIVER 03/04/2021 3:22 PM Care Management Initial Consult General Information Assessment completed with: Patient, Type of CM/SW Visit: Initial Assessment Primary Care Provider verified and updated as needed: Readmission within the last 30 days: no previous admission in last 30 days Reason for Consult: discharge planning Communication Assessment Patient's communication style: spoken language (Afghan or Bilingual) Hearing Difficulty or Deaf: no Wear Glasses or Blind: yes Cognitive Cognitive/Neuro/Behavioral: .WDL except Level of Consciousness: alert Arousal Level: opens eyes spontaneously Orientation: oriented x 4 Best Language: 0 - No aphasia Speech: slurred Living Environment: People in home: alone, other (see comments) (has 5 cats that live in the home ) Current living Arrangements: house Has stairs, Reports he can stay on the Main level if necessary Has a Recline that can help stand him up and a comfortable couch to sleep on Able to return to prior arrangements: yes Family/Social Support: Care provided by: self Provides care for: no one Marital Status: Children - son and RUY.. Description of Support System: Supportive, Involved Support Assessment: Minimal outside structure and leisure time activities, Patient communicates needs well met Pt stated he does not leave the home much.. Enjoys sitting and watching tv or being on his computer Current Resources: Patient receiving home care services: No Community Resources: Home Care Pt is refusing TCU.. Sw spoke with pt about consideration for home care support. Equipment currently used at home: other (see comments) (will need to borrow shower chair ) Supplies currently used at home: None Employment/Financial: Employment Status: retired Financial Concerns: No concerns identified Referral to Financial Counselor: No Lifestyle & Psychosocial Needs: Social Determinants of Health Tobacco Use: Medium Risk ??? Smoking Tobacco Use: Former Smoker ??? Smokeless Tobacco Use: Never Used Alcohol Use: ??? Frequency of Alcohol Consumption: ??? Average Number of Drinks: ??? Frequency of Binge Drinking: Financial Resource Strain: ??? Difficulty of Paying Living Expenses: Food Insecurity: ??? Worried About Running Out of Food in the Last Year: ??? Ran Out of Food in the Last Year: Transportation Needs: ??? Lack of Transportation (Medical): ??? Lack of Transportation (Non-Medical): Physical Activity: ??? Days of Exercise per Week: ??? Minutes of Exercise per Session: Stress: ??? Feeling of Stress : Social Connections: ??? Frequency of Communication with Friends and Family: ??? Frequency of Social Gatherings with Friends and Family: ??? Attends Confucianist Services: ??? Active Member of Clubs or Organizations: ??? Attends Club or Organization Meetings: ??? Marital Status: Intimate Partner Violence: ??? Fear of Current or Ex-Partner: ??? Emotionally Abused: ??? Physically Abused: ??? Sexually Abused: Depression: ??? PHQ-2 Score: Housing Stability: ??? Unable to Pay for Housing in the Last Year: ??? Number of Places Lived in the Last Year: ??? Unstable Housing in the Last Year: Functional Status: Prior to admission patient needed assistance: Dependent ADLs:: Independent Dependent IADLs:: Cleaning- has cleaning lady Assesssment of Functional Status: Not at baseline with ADL Functioning, Not at baseline with mobility, Not at functional baseline Mental Health Status: Mental Health Status: No Current Concerns Chemical Dependency Status: Chemical Dependency Status: No Current Concerns Additional Information: Met with pt to discuss OT recommendation for TCU.. Pt is needing assist of 1 to 2 or nikki steady. Pt told SW I don't want to go to TCU, even my son brought that up. SW questioned how he planned to be home alone with the current level of care he is needing.. Pt stated, well I am already doing better and by tomorrow I will be find.. Pt also reported he would be able to do better today if the staff would allow him better control of his pain medications. Pt reported he has lots of knee pain.. Also has issues with peripheral neuropathy and balance.. Pt does not use DME at home.. He has been able to still drive self. Pt reported that he generally spends his day sitting watching tv and does not leave his house often SW expressed concerns that going home may require his family to provide more support . Pt is alert and acknowledges SW concerns but still not willing to discuss TCU options. SW talked about home care. Indicated pt has choices, Pt has not used Home care and does not care what agency Sw can find to accept referral SW went to [employer] web site.. Called home care agencies but had to navigate through call center operator services SW was able [facility] find [facility] [phone] . Requested PT/OT MASONRY INSPECTOR support for pt. They could provide start of care on Saturday Will fax face sheet and H&P over today and final d.c orders tomorrow Pt stated he will call his son for a ride home tomorrow. Sandhya Heath, CONTRACT DRIVER Spine Surgery Adult IP Consult: C5-6 cord compression with inability to do shoulder abduction; Business Analysis Analyst may enter orders: Yes; Patient to be seen: Routine - within 24 hours; Requesting provider? Hospitalist (if different from attending physician... Status: None () Narrative Jairo Buckley, AUDREY 03/05/2021 4:[address] [facility] Neurosurgery Consultation Date of Admission: 03/03/2021 Date of Consult (When I saw the patient): 03/05/21 Assessment & Plan Jett Georges II is a 65 year old male who was admitted on 03/03/2021. I was asked to see the patient for right shoulder weakness. He was admitted on the , after being found sleeping awkwardly by his sons. He notes he had accidentally taken a double dose of his Tramadol, which he takes for chronic knee issues. He does recall falling, unsure whether he struck his head. He was noted to have profound weakness in the right shoulder, with inability to abduct the arm at all. No radiating pain or paresthesias. Right arm is otherwise intact. MRI cervical was done, and does show some right foraminal narrowing at C5-6 on the right, but with no overt nerve compression. Nerve compression at that level in the foramen would be unlikely to produce total loss of function in the deltoid and rotator cuff. He does have normal, full range of motion passively, and motion is not painful. No neurosurgical indications. With no pain or dysesthesias, no recommendation for ANABELA. We have also reviewed Neurology's notes, and agree with possibility that there could be a brachial plexus injury, which can be obtained as outpatient. I have discussed the following assessment and plan with Dr. Carcamo, who is in agreement with the initial plan and will follow up with further consultation recommendations. Jairo Buckley PA-C [facility] Neurosurgery [address] [place] [id number] Pager [phone] Code Status Full Code Reason for Consult Reason for consult: right shoulder weakness Primary Care Physician Mario Keith Chief Complaint S/p fall, UE weakness History is obtained from the patient, electronic health record and hospitalist service. History of Present Illness Jett Georges II is a 65 year old male who presents with right shoulder weakness. He was admitted on the , after being found sleeping awkwardly by his sons. He notes he had accidentally taken a double dose of his Tramadol, which he takes for chronic knee issues. He does recall falling, unsure whether he struck his head. He was noted to have profound weakness in the right shoulder, with inability to abduct the arm at all. No radiating pain or paresthesias. Right arm is otherwise intact. MRI cervical was done, and does show some right foraminal narrowing at C5-6 on the right, but with no overt nerve compression. Nerve compression at that level in the foramen would be unlikely to produce total loss of function in the deltoid and rotator cuff. He does have normal, full range of motion passively, and motion is not painful. Past Medical History I have reviewed this patient's medical history and updated it with pertinent information if needed. Past Surgical History I have reviewed this patient's surgical history and updated it with pertinent information if needed. Past Surgical History: Procedure Laterality Date ??? C PLASTY KNEE,MED OR LAT COMPARTMT Bilateral 11/28/2017 Procedure: BILATERAL MEDIAL UNICOMPARTMENTAL ARTHROPLASTY ; Surgeon: Joseph Ramesh MD; Location: [facility]; Service: Orthopedics ??? GASTRIC BYPASS ??? HERNIA REPAIR ??? TONSILLECTOMY Prior to Admission Medications Prior to Admission Medications Prescriptions Last Dose Informant Patient Reported? Taking? LORazepam (ATIVAN) 1 MG tablet 03/02/2021 at PRN Yes Yes Sig: Take 1 mg by mouth 3 times daily as needed QUEtiapine (SEROQUEL) 200 MG tablet 03/02/2021 at HS Yes Yes Sig: Take 200 mg by mouth At Bedtime allopurinol (ZYLOPRIM) 300 MG tablet 03/02/2021 at Unknown time Yes Yes Sig: Take 1 tablet by mouth daily aspirin (ASA) 81 MG chewable tablet 03/02/2021 at had full dose today 03/03 in the ED Yes Yes Sig: Take 81 mg by mouth daily gabapentin (NEURONTIN) 300 MG capsule 03/02/2021 at Unknown time Yes Yes Sig: Take 900 mg by mouth 3 times daily lisinopril (ZESTRIL) 20 MG tablet 03/02/2021 at Unknown time Yes Yes Sig: Take 20 mg by mouth daily meloxicam (MOBIC) 15 MG tablet 03/02/2021 at Unknown time Yes Yes Sig: Take 15 mg by mouth daily metFORMIN (GLUCOPHAGE) 500 MG tablet 03/02/2021 at Unknown time Yes Yes Sig: Take 500 mg by mouth 3 times daily (with meals) omeprazole (PRILOSEC) [address] capsule 03/02/2021 at Unknown time Yes Yes Sig: Take 40 mg by mouth daily sertraline (ZOLOFT) 50 MG tablet 03/02/2021 at Unknown time Yes Yes Sig: Take 50 mg by mouth daily simvastatin (ZOCOR) 20 MG tablet 03/02/2021 at Unknown time Yes Yes Sig: Take 20 mg by mouth daily (with dinner) tamsulosin (FLOMAX) 0.4 MG capsule 03/02/2021 at Unknown time Yes Yes Sig: Take 0.4 mg by mouth daily traMADol (ULTRAM) 50 MG tablet 03/02/2021 at Unknown time Yes Yes Sig: Take 1-2 tablets by mouth every 6 hours as needed for pain traZODone (DESYREL) 50 MG tablet 03/02/2021 at Unknown time Yes Yes Sig: Take 75 mg by mouth At Bedtime Facility-Administered Medications: None Allergies Allergies Allergen Reactions ??? Zyban [Bupropion Hydrobromide] Hives Social History I have reviewed this patient's social history and updated it with pertinent information if needed. Jett Georges II reports that he has quit smoking. He has never used smokeless tobacco. He reports current alcohol use of about 3.0 standard drinks of alcohol per week. He reports that he does not use drugs. Family History I have reviewed this patient's family history and updated it with pertinent information if needed. No family history on file. Review of Systems 10 point review of systems is negative with the exception of HPI and PMH. Physical Exam Temp: 97.7 ??F (36.5 ??C) Temp src: Oral BP: (!) 174/82 Pulse: 67 Resp: 18 SpO2: 95 % O2 Device: None (Room air) Vital Signs with Ranges Temp: [97.7 ??F (36.5 ??C)-98.3 ??F (36.8 ??C)] 97.7 ??F (36.5 ??C) Pulse: [64-72] 67 Resp: [16-18] 18 BP: (162-178)/(60-82) 174/82 SpO2: [94 %-95 %] 95 % 303 lbs 14.4 oz , Blood pressure (!) 174/82, pulse 67, temperature 97.7 ??F (36.5 ??C), temperature source Oral, resp. rate 18, height 1.803 m (5' 11), weight 137.8 kg (303 lb 14.4 oz), SpO2 95 %. 303 lbs 14.4 oz HEENT: Normocephalic, atraumatic. PERRLA. EOM???s intact. Neck: Supple, non-tender, without lymphadenopathy. Heart: No peripheral edema Lungs: No SOB Abdomen: Soft, non-tender, non-distended. Skin: Warm and dry, good capillary refill. Extremities: Good radial and dorsalis pedis pulses bilaterally, no edema, cyanosis or clubbing. NEUROLOGICAL EXAMINATION: Mental status: Alert and Oriented x 3, speech is fluent. Cranial nerves: II-XII intact. Motor: Strength is 5/5 throughout the upper and lower extremities Shoulder Abduction: Right: 0/5 Left: 5/5 Biceps: Right: 5/5 Left: 5/5 Triceps: Right: 5/5 Left: 5/5 Wrist Extensors: Right: 5/5 Left: 5/5 Wrist Flexors: Right: 5/5 Left: 5/5 interosseus : Right: 5/5 Left: 5/5 Hip Flexor: Right: 09/21 Left: 5 Hip Adductor: Right: 09/21 Left: 5 Hip Abductor: Right: 5 Left: /5 Gastroc Soleus: Right: 09/21 Left: 09/21 Tib/Ant: Right: 09/21 Left: 09/21 EHL: Right: 09/21 Left: 09/21 Sensation: intact Reflexes: Negative Babinski. Negative Clonus. Coordination: Smooth finger to nose testing. Negative pronator drift. Good passive ROM in RUE. Unable to test cuff strength at present. Data All new lab and imaging data was personally reviewed by me. CT: MRI: 1. Right paracentral and foraminal protrusion with uncinate spurring C5-C6 with mild to moderate spinal canal narrowing and moderate to moderately severe right and mild to moderate left neural foraminal narrowing. 2. Multilevel degenerative disc and facet changes as described on a level by level basis elsewhere. ?? CBC RESULTS: Recent Labs Lab Test 03/04/21 0802 WBC 8.6 RBC 4.33* HGB 12.4* HCT 37.7* MCV 87 MCH 28.6 MCHC 32.9 RDW 13.1 PLT 290 Basic Metabolic Panel: Lab Results Component Value Date NA 132 03/04/2021 NA 138 03/04/2009 Lab Results Component Value Date POTASSIUM 4.4 03/04/2021 POTASSIUM 4.1 03/04/2009 Lab Results Component Value Date CHLORIDE 100 03/04/2021 CHLORIDE 102 03/04/2009 Lab Results Component Value Date TRACEE 8.8 03/04/2021 TRACEE 9.5 03/04/2009 Lab Results Component Value Date CO2 26 03/04/2021 CO2 27 03/04/2009 Lab Results Component Value Date BUN 6 03/04/2021 BUN 11 03/04/2009 Lab Results Component Value Date CR 0.65 03/04/2021 CR 0.90 03/04/2009 Lab Results Component Value Date GLC 137 03/05/2021 GLC 203 03/04/2021 GLC 210 03/04/2009 INR: Lab Results Component Value Date INR 0.94 03/03/2021 CBC with platelets differential Status: Abnormal Narrative The following orders were created for panel order CBC with platelets differential. Procedure Abnormality Status --------- ------ CBC with platelets and d...[[id number]] Abnormal Final result Please view results for these tests on the individual orders. Extra Tube ([place] Draw) Status: None Narrative The following orders were created for panel order Extra Tube ([place] Draw). Procedure Abnormality Status --------- ------ Extra Blue Top Tube[[id number]] Final result Extra Green Top ([place]...[[id number]] Final result Extra Purple Top Tube[[id number]] Final result Please view results for these tests on the individual orders. CBC with Platelets & Differential *Canceled* Status: None () Narrative The following orders were created for panel order CBC with Platelets & Differential. Procedure Abnormality Status --------- ------ Please view results for these tests on the individual orders. Attestation: I have reviewed today's vital signs, notes, medications, labs and imaging with Dr. Degroot. Amount of time performed on this consult: 45 minutes. Veronica Murrell PA-C Associated attestation - Robin Degroot MD - 03/07/2021 12:43 PM CDT Physician Attestation I agree with the information in this note. Jairo Sy PA-C - 03/05/2021 2:30 PM CDTAssociated Order(s): SPINE SURGERY ADULT IP CONSULT [facility] Neurosurgery Consultation Date of Admission: 03/03/2021 Date of Consult (When I saw the patient): 03/05/21 Assessment & Plan Jett Georges II is a 65 year old male who was admitted on 03/03/2021. I was asked to see the patient for right shoulder weakness. He was admitted on the , after being found sleeping awkwardly by his sons. He notes he had accidentally taken a double dose of his Tramadol, which he takes for chronic knee issues. He does recall falling, unsure whether he struck his head. He was noted to have profound weakness in the right shoulder, with inability to abduct the arm at all. No radiating pain orparesthesias. Right arm is otherwise intact. MRI cervical was done, and does show some right foraminal narrowing at C5-6 on the right, but with no overt nerve compression. Nerve compression at that level in the foramen would be unlikely to produce total loss of function in the deltoid and rotator cuff. He does have normal, full range of motion passively, and motion is not painful. No neurosurgical indications. With no pain or dysesthesias, no recommendation for ANABELA. We have also reviewed Neurology's notes, and agree with possibility that there could be a brachial plexus injury, which can be obtained as outpatient. I have discussed the following assessment and plan with Dr. Carcamo, who is in agreement with the initial plan and will follow up with further consultation recommendations. Jairo Buckley PA-C [facility] Neurosurgery [place] [address] Pager [phone] Code Status Full Code Reason for Consult Reason for consult: right shoulder weakness Primary Care Physician Mario Keith Chief Complaint S/p fall, UE weakness History is obtained from the patient, electronic health record and hospitalist service. History of Present Illness Jett Georges II is a 65 year old male who presents with right shoulder weakness. He was admitted on the , after being found sleeping awkwardly by his sons. He notes he had accidentally takena double dose of his Tramadol, which he takes for chronic knee issues. He does recall falling, unsure whether he struck his head. He was noted to have profound weakness in the right shoulder, with inability to abduct the arm at all. No radiating pain or paresthesias. Right arm is otherwise intact. MRIcervical was done, and does show some right foraminal narrowing at C5-6 on the right, but with no overt nerve compression. Nerve compression at that level in the foramen would be unlikely to produce tot al loss of function in the deltoid and rotator cuff. He does have normal, full range of motion passively, and motion is not painful. Past Medical History I have reviewed this patient's medical history and updated it with pertinent information if needed. Past Surgical History I have reviewed this patient's surgical history and updated it with pertinent information if needed. Past Surgical History: Procedure Laterality Date ??? C PLASTY KNEE,MED OR LAT COMPARTMT Bilateral 11/28/2017 Procedure: BILATERAL MEDIAL UNICOMPARTMENTAL ARTHROPLASTY ; Surgeon: Joseph Ramesh MD; Location: [facility]; Service: Orthopedics ??? GASTRIC BYPASS ??? HERNIA REPAIR ??? TONSILLECTOMY Prior to Admission Medications Prior to Admission Medications Prescriptions Last Dose Informant Patient Reported? Taking? LORazepam (ATIVAN) 1 MG tablet 03/02/2021 at PRN Yes Yes Sig: Take 1 mg by mouth 3 times daily as needed QUEtiapine (SEROQUEL) 200 MG tablet 03/02/2021 at HS Yes Yes Sig: Take 200 mg by mouth At Bedtime allopurinol (ZYLOPRIM) 300 MG tablet 03/02/2021 at Unknown time Yes Yes Sig: Take 1 tablet by mouth daily aspirin (ASA) 81 MG chewable tablet 03/02/2021 at had full dose today 03/03 in the ED Yes Yes Sig: Take 81 mg by mouth daily gabapentin (NEURONTIN) 300 MG capsule 03/02/2021 at Unknown time Yes Yes Sig: Take 900 mg by mouth 3 times daily lisinopril (ZESTRIL) 20 MG tablet 03/02/2021 at Unknown time Yes Yes Sig: Take 20 mg by mouth daily meloxicam (MOBIC) 15 MG tablet 03/02/2021 at Unknown time Yes Yes Sig: Take 15 mg by mouth daily metFORMIN (GLUCOPHAGE) 500 MG tablet 03/02/2021 at Unknown time Yes Yes Sig: Take 500 mg by mouth 3 times daily (with meals) omeprazole (PRILOSEC) [address] capsule 03/02/2021 at Unknown time Yes Yes Sig: Take 40 mg by mouth daily sertraline (ZOLOFT) 50 MG tablet 03/02/2021 at Unknown time Yes Yes Sig: Take 50 mg by mouth daily simvastatin (ZOCOR) 20 MG tablet 03/02/2021 at Unknown time Yes Yes Sig: Take 20 mg by mouth daily (with dinner) tamsulosin (FLOMAX) 0.4 MG capsule 03/02/2021 at Unknown time Yes Yes Sig: Take 0.4 mg by mouth daily traMADol (ULTRAM) 50 MG tablet 03/02/2021 at Unknown time Yes Yes Sig: Take 1-2 tablets by mouth every 6 hours as needed for pain traZODone (DESYREL) 50 MG tablet 03/02/2021 at Unknown time Yes Yes Sig: Take 75 mg by mouth At Bedtime Facility-Administered Medications: None Allergies Allergies Allergen Reactions ??? Zyban [Bupropion Hydrobromide] Hives Social History I have reviewed this patient's social history and updated it with pertinent information if needed. Jett Georges II reports that he has quit smoking. He has never used smokeless tobacco. He reports current alcohol use of about 3.0 standard drinks of alcohol per week. He reports that he does not use drugs. Family History I have reviewed this patient's family history and updated it with pertinent information if needed. No family history on file. Review of Systems 10 point review of systems is negative with the exception of HPI and PMH. Physical Exam Temp: 97.7 ??F (36.5 ??C) Temp src: Oral BP: (!) 174/82 Pulse: 67 Resp: 18 SpO2: 95 % O2 Device: None (Room air) Vital Signs with Ranges Temp: [97.7 ??F (36.5 ??C)-98.3 ??F (36.8 ??C)] 97.7 ??F (36.5 ??C) Pulse: [64-72] 67 Resp: [16-18] 18 BP: (162-178)/(60-82) 174/82 SpO2: [94 %-95 %] 95 % 303 lbs 14.4 oz , Blood pressure (!) 174/82, pulse 67, temperature 97.7 ??F (36.5 ??C), temperature source Oral, resp. rate 18, height 1.803 m (5' 11), weight 137.8 kg (303 lb 14.4 oz), SpO2 95 %. 303 lbs 14.4 oz HEENT: Normocephalic, atraumatic. PERRLA. EOM???s intact. Neck: Supple, non-tender, without lymphadenopathy. Heart: No peripheral edema Lungs: No SOB Abdomen: Soft, non-tender, non-distended. Skin: Warm and dry, good capillary refill. Extremities: Good radial and dorsalis pedis pulses bilaterally, no edema, cyanosis or clubbing. NEUROLOGICAL EXAMINATION: Mental status: Alert and Oriented x 3, speech is fluent. Cranial nerves: II-XII intact. Motor: Strength is 5/5 throughout the upper and lower extremities Shoulder Abduction: Right: 0/5 Left: 5/5 Biceps: Right: 5/5 Left: 5/5 Triceps: Right: 5/5 Left: 5/5 Wrist Extensors: Right: 5/5 Left: 5/5 Wrist Flexors: Right: 5/5 Left: 5/5 interosseus : Right: 5/5 Left: 5/5 Hip Flexor: Right: 5/5 Left: 5/5 Hip Adductor: Right: 5/5 Left: 5/5 Hip Abductor: Right: 5/5 Left: 5/5 Gastroc Soleus: Right: 5/5 Left: 5/5 Tib/Ant: Right: 5/5 Left: 5/5 EHL: Right: 5/5 Left: 5/5 Sensation: intact Reflexes: Negative Babinski. Negative Clonus. Coordination: Smooth finger to nose testing. Negative pronator drift. Good passive ROM in RUE. Unable to test cuff strength at present. Data All new lab and imaging data was personally reviewed by me. CT: MRI: 1. Right paracentral and foraminal protrusion with uncinate spurring C5-C6 with mild to moderate spinal canal narrowing and moderate to moderately severe right and mild to moderate left neural foraminal narrowing. 2. Multilevel degenerative disc and facet changes as described on a level by level basis elsewhere. ?? CBC RESULTS: Recent Labs Lab Test 03/04/21 0802 WBC 8.6 RBC 4.33* HGB 12.4* HCT 37.7* MCV 87 MCH 28.6 MCHC 32.9 RDW 13.1 PLT 290 Basic Metabolic Panel: Lab Results Component Value Date NA 132 03/04/2021 NA 138 03/04/2009 Lab Results Component Value Date POTASSIUM 4.4 03/04/2021 POTASSIUM 4.1 03/04/2009 Lab Results Component Value Date CHLORIDE 100 03/04/2021 CHLORIDE 102 03/04/2009 Lab Results Component Value Date TRACEE 8.8 03/04/2021 TRACEE 9.5 03/04/2009 Lab Results Component Value Date CO2 26 03/04/2021 CO2 27 03/04/2009 Lab Results Component Value Date BUN 6 03/04/2021 BUN 11 03/04/2009 Lab Results Component Value Date CR 0.65 03/04/2021 CR 0.90 03/04/2009 Lab Results Component Value Date GLC 137 03/05/2021 GLC 203 03/04/2021 GLC 210 03/04/2009 INR: Lab Results Component Value Date INR 0.94 03/03/2021 Associated attestation - Maria R Carcamo MD - 03/05/2021 7:14 PM CDT Physician Attestation I, Maria R Carcamo, have reviewed and discussed with the advanced practice provider their history, physical and plan for Jett Georges II. I did not participate in a shared visit by interviewing or examining the patient and this should be billed as an advanced practice provider only visit. Jett has isolated shoulder/deltoid weakness without radicular pain or paresthesias after trauma to the shoulder directly. His MRI demonstrates no significant stenosis around the C5 nerve root so this is unlikely to be the cause. He does have foraminal stenosis around the right C6 nerve root but without other findings of radiculopathy (pain, numbness, tingling radiating down into the thumb and index finger) this is much less likely. I am most suspicious of intrinsic shoulder injury. Pt would likely benefit from orthopedic evaluation, PT for his shoulder as long as not contraindicated by ortho. If no shoulder/rotator cuff injury is found, then recommend EMG in follow-up. Maria R Carcamo MD Date of Service (when I saw the patient): I did not personally see this patient today. Sandhya Heath, CONTRACT DRIVER - 03/04/2021 3:22 PM CDTAssociated Order(s): CARE MANAGEMENT / SOCIAL WORK IP CONSULT Care Management Initial Consult General Information Assessment completed with: Patient, Type of CM/SW Visit: Initial Assessment Primary Care Provider verified and updated as needed: Readmission within the last 30 days: no previous admission in last 30 days Reason for Consult: discharge planning Communication Assessment Patient's communication style: spoken language (Afghan or Bilingual) Hearing Difficulty or Deaf: no Wear Glasses or Blind: yes Cognitive Cognitive/Neuro/Behavioral: .WDL except Level of Consciousness: alert Arousal Level: opens eyes spontaneously Orientation: oriented x 4 Best Language: 0 - No aphasia Speech: slurred Living Environment: People in home: alone, other (see comments) (has 5 cats that live in the home ) Current living Arrangements: house Has stairs, Reports he can stay on the Main level if necessary Has a Recline that can help stand him up and a comfortable couch to sleep on Able to return to prior arrangements: yes Family/Social Support: Care provided by: self Provides care for: no one Marital Status: Children - son and RUY.. Description of Support System: Supportive, Involved Support Assessment: Minimal outside structure and leisure time activities, Patient communicates needs well met Pt stated he does not leave the home much.. Enjoys sitting and watching tv or being on his computer Current Resources: Patient receiving home care services: No Community Resources: Home Care Pt is refusing TCU.. Sw spoke with pt about consideration for home care support. Equipment currently used at home: other (see comments) (will need to borrow shower chair ) Supplies currently used at home: None Employment/Financial: Employment Status: retired Financial Concerns: No concerns identified Referral to Financial Counselor: No Lifestyle & Psychosocial Needs: Social Determinants of Health Tobacco Use: Medium Risk ??? Smoking Tobacco Use: Former Smoker ??? Smokeless Tobacco Use: Never Used Alcohol Use: ??? Frequency of Alcohol Consumption: ??? Average Number of Drinks: ??? Frequency of Binge Drinking: Financial Resource Strain: ??? Difficulty of Paying Living Expenses: Food Insecurity: ??? Worried About Running Out of Food in the Last Year: ??? Ran Out of Food in the Last Year: Transportation Needs: ??? Lack of Transportation (Medical): ??? Lack of Transportation (Non-Medical): Physical Activity: ??? Days of Exercise per Week: ??? Minutes of Exercise per Session: Stress: ??? Feeling of Stress : Social Connections: ??? Frequency of Communication with Friends and Family: ??? Frequency of Social Gatherings with Friends and Family: ??? Attends Confucianist Services: ??? Active Member of Clubs or Organizations: ??? Attends Club or Organization Meetings: ??? Marital Status: Intimate Partner Violence: ??? Fear of Current or Ex-Partner: ??? Emotionally Abused: ??? Physically Abused: ??? Sexually Abused: Depression: ??? PHQ-2 Score: Housing Stability: ??? Unable to Pay for Housing in the Last Year: ??? Number of Places Lived in the Last Year: ??? Unstable Housing in the Last Year: Functional Status: Prior to admission patient needed assistance: Dependent ADLs:: Independent Dependent IADLs:: Cleaning- has cleaning lady Assesssment of Functional Status: Not at baseline with ADL Functioning, Not at baseline with mobility, Not at functional baseline Mental Health Status: Mental Health Status: No Current Concerns Chemical Dependency Status: Chemical Dependency Status: No Current Concerns Additional Information: Met with pt to discuss OT recommendation for TCU.. Pt is needing assist of 1 to 2 or nikki steady. Pttold SW I don't want to go to TCU, even my son brought that up. SW questioned how he planned to be home alone with the current level of care he is needing.. Pt stated, well I am already doing betterand by tomorrow I will be find.. Pt also reported he would be able to do better today if the staff would allow him better control of his pain medications. Pt reported he has lots of knee pain.. Also has issues with peripheral neuropathy and balance.. Pt does not use DME at home.. He has been able to still drive self. Pt reported that he generally spends his day sitting watching tv and does not leave his house often SW expressed concerns that going home may require his family to provide more support . Pt is alert and acknowledges SW concerns but still not willing to discuss TCU options. SW talked about home care. Indicated pt has choices, Pt has not used Home care and does not care what agency Sw can find to accept referral SW went to [employer] web site.. Called home care agencies but had to navigate through call center operator services SW was able to find [facility] [phone] . Requested PT/OT MASONRY INSPECTOR support for pt. They could provide start of care on Saturday Will fax face sheet and H&P over today and final d.c orders tomorrow Pt stated he will call his son for a ride home tomorrow. YOKO Simpson Praful Gaytan MD - 03/04/2021 12:20 PM CDTAssociated Order(s): NEUROLOGY IP CONSULT HOSPITAL NEUROLOGY History of the Present Illness: 65 year old male presents to the ER yesterday (03/03/2021) complaining of generalized (and later more right sided) weakness in the context of accidentally taking too many tramadol tablets the previous evening. He explains how he 'took too many pills' two nights ago. I grabbed the wrong bottle. He remembers trying to go to the bathroom and I couldn't walk, I was so doped up, and I fell on the floor. He does not recall if he landed on his shoulder. He felt too weak to get up, so just stayed on the floor, I slept well. He assumes he slept on this right shoulder. He woke up around 8AM the next morning. He noted that his right shoulder was in a lot of pain. He was strong enough at this point to pull himself up and call his sons. His knees were sore at the time too. He is not sure if the arm was weak and initially suspected that limitation in movement was primarily from the pain. His knees initially felt weak too but this was better the next morning. He felt hewas 'off' nothing specific but speech was off. His right arm is felt to be better now but still unable to hold it up (and this is despite great improvement in pain). He has some numbness in the feet and legs, but states 'always' like this from neuropathy, this is baseline. No other new symptoms, no incontinence. The pain in the right arm is much better. He feels the weakness is better as well.; No shooting pain. No neck pain. Of note, apparently has baseline leg pain from diabetic neuropathy. Review of systems: Constitutional: As mentioned above. No fevers, weight loss. No recent surgeries Eyes: No blurred vision, eye congestion, ptosis, miosis, or diplopia ENT: No hearing loss or tinnitus, no rhinorrhea Cardiovascular: No chest pain or palpitation Respiratory: No shortness of breath Gastrointestinal: No abdominal pain, diarrhea or constipation Genitourinary: No burning on micturition Musculoskeletal: +see above Skin: No rash Neurological: As mentioned above. Psychiatric: No anxiety, depression All other systems negative or as noted in the history of the present illness. No past medical history on file. - history of HTN, diabetes, alcohol abuse per notes (states he doesnot drink anymore), diabetic neuropathy Past Surgical History: Procedure Laterality Date ??? C PLASTY KNEE,MED OR LAT COMPARTMT Bilateral 11/28/2017 Procedure: BILATERAL MEDIAL UNICOMPARTMENTAL ARTHROPLASTY ; Surgeon: Joseph Ramesh MD; Location: [facility]; Service: Orthopedics ??? GASTRIC BYPASS ??? HERNIA REPAIR ??? TONSILLECTOMY Social History Tobacco Use ??? Smoking status: Former Smoker ??? Smokeless tobacco: Never Used Substance Use Topics ??? Alcohol use: Yes Alcohol/week: 3.0 standard drinks Comment: Alcoholic Drinks/day: none in last week, usual 4-5 beers a day ??? Drug use: No No family history on file. No pertinent neurologic family history Current Facility-Administered Medications: ??? allopurinol (ZYLOPRIM) tablet 300 mg, 300 mg, Oral, Daily, Carli Holder PA-C, 300 mg at 03/04/21 08 ??? aspirin (ASA) chewable tablet 81 mg, 81 mg, Oral, Daily, Carli Holder PA-C, 81 mg at 03/04/21 0806 ??? glucose gel 15-30 g, 15-30 g, Oral, Q15 Min PRN OR dextrose 50 % injection 25-50 mL, 25-50 mL, Intravenous, Q15 Min PRN OR glucagon injection 1 mg, 1 mg, Subcutaneous, Q15 Min PRN, Carli Holder PA-C ??? gabapentin (NEURONTIN) capsule 300 mg, 300 mg, Oral, TID, Carli Holder PA-C, 300 mg at 03/04/21 0805 ??? insulin aspart (NovoLOG) injection (RAPID ACTING), 1-7 Units, Subcutaneous, TID AC, Carli Holder PA-C, 2 Units at 03/04/21807 ??? insulin aspart (NovoLOG) injection (RAPID ACTING), 1-5 Units, Subcutaneous, At Bedtime, Holder, Carli Vogel PA-C, 2 Units at 03/03/212041 ??? lisinopril (ZESTRIL) tablet 20 mg, 20 mg, Oral, Daily, Holder, Carli Vogel PA-C, 20 mg at 03/04/21805 ??? LORazepam (ATIVAN) tablet 0.5 mg, 0.5 mg, Oral, Q4H PRN, Pradeep Menendez MD ??? melatonin tablet 1 mg, 1 mg, Oral, At Bedtime PRN, Holder, Carli Vogel PA-C ??? meloxicam (MOBIC) tablet 15 mg, 15 mg, Oral, Daily, Holder, LUCIEN Bangura, 15 mg at 03/04/21 08 ??? naloxone (NARCAN) injection 0.2 mg, 0.2 mg, Intravenous, Q2 Min PRN OR naloxone (NARCAN) injection 0.4 mg, 0.4 mg, Intravenous, Q2 Min PRN OR naloxone (NARCAN) injection 0.2 mg, 0.2 mg, Intramuscular, Q2 Min PRN OR naloxone (NARCAN) injection 0.4 mg, 0.4 mg, Intramuscular, Q2 Min PRN, Pradeep Menendez MD ??? omeprazole (priLOSEC) CR capsule 40 mg, 40 mg, Oral, Daily, Holder, Carli Vogel PA-C, 40 mg at 03/04/21 08 ??? ondansetron (ZOFRAN-ODT) ODT tab 4 mg, 4 mg, Oral, Q6H PRN OR ondansetron (ZOFRAN) injection4 mg, 4 mg, Intravenous, Q6H PRN, Carli Holder PA-C ??? QUEtiapine (SEROquel) tablet 200 mg, 200 mg, Oral, At Bedtime, Holder, Carli Vogel PA-C, 200 mg at 03/03/211943 ??? senna-docusate (SENOKOT-S/PERICOLACE) 8.6-50 MG per tablet 1 tablet, 1 tablet, Oral, BID PRN OR senna-docusate (SENOKOT-S/PERICOLACE) 8.6-50 MG per tablet 2 tablet, 2 tablet, Oral, BID PRN, Glory, Carli Vogel PA-C ??? sertraline (ZOLOFT) tablet 50 mg, 50 mg, Oral, Daily, Holder, Carli Vogel PA-C, 50 mg at 03/04/21 0806 ??? simvastatin (ZOCOR) tablet 20 mg, 20 mg, Oral, Daily with supper, Glory, Carli Vogel PA-C, 20 mg at 03/03/21 1758 ??? sodium chloride 0.9% infusion, , Intravenous, Continuous, Glory, Carli Vogel PA-C, Last Rate: 100 mL/hr at 03/04/21 0400, 1,000 mL at 03/04/21 0400 ??? tamsulosin (FLOMAX) capsule 0.4 mg, 0.4 mg, Oral, Daily, Holder, Carli Vogel PA-C, 0.4 mg at 03/04/21 0806 ??? traMADol (ULTRAM) tablet 50-100 mg, 50-100 mg, Oral, Q6H PRN, Romaine Eng MD, 50 mg at1 1023 ??? traZODone (DESYREL) half-tab 75 mg, 75 mg, Oral, At Bedtime, Holder, Carli Vogel PA-C, 75 mg at 03/03/21 194 Allergies: Allergies Allergen Reactions ??? Zyban [Bupropion Hydrobromide] Hives Physical Examination: BP (!) 153/63 (BP Location: Right arm) Pulse 85 Temp 99.6 ??F (37.6 ??C) (Oral) Resp 16 Ht 1.803 m (5' 11) Wt 137.8 kg (303 lb 14.4 oz) SpO2 91% BMI 42.39 kg/m?? Body mass index is 42.39 kg/m??. GEN: Alert. NAD. Normal affect. Cooperative. HEENT: Normocephalic / atraumatic NECK/BACK: No meningismus. No significant paraspinal neck or shoulder musculature pain. CV: RRR. EXT: No cyanosis. No edema. No erythema. SKIN: No rashes. No lesions. NEUROLOGICAL: MENTAL STATUS: Alert and oriented. Thought process and content unremarkable. Follows commands appropriately. Speechfluent. CN: II: Visual valentin intact. PERRLA. III, IV, : EOMI. V: Symmetric facial sensation to light touch. VII: Face symmetric. VIII: Hearing symmetric. No nystagmus. IX, X: Symmetric palatal rise. XI: Symmetric shoulder shrug. XII: Tongue midline with symmetric movements. 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 No clonus. SENSATION: PP, light touch intact and symmetric . CEREBELLAR: Normal F-N-F (on left, could not assess on right given weakness). No dysmetria. No nystagmus. GAIT: deferred Review of Diagnostics: I personally reviewed and interpreted the following: Results for JETT GEORGES II ( ) as of 03/04/2021 12:14 03/04/2021 08:02 Sodium 132 (L) Potassium 4.4 Chloride 100 Carbon Dioxide 26 Urea Nitrogen 6 (L) Creatinine 0.65 (L) GFR Estimate >90 Calcium 8.8 Complete Blood Count: Recent Labs Lab Test 03/04/21 0802 03/03/21 0958 11/29/17 0617 WBC 8.6 13.3* 7.7 RBC 4.33* 4.43 3.65* HGB 12.4* 12.4* 10.3* HCT 37.7* 38.3* 30.9* PLT 290 283 177 LYMPH -- 11 -- HgA1c: Lab Results Component Value Date A1C 8.1 (H) 03/03/2021 CK Total - 729 <--- 1145 Ethanol (03/03) negative MRI Brain without and with Contrast (03/03/2021) IMPRESSION: 1. No evidence for intracranial hemorrhage, acute infarct, or any focal mass lesions. 2. Cerebral atrophy with minimal scattered white matters signal hyperintensities. The latter are nonspecific, but most likely due to chronic small vessel ischemic disease. Impression: Mr. Georges is a 65 year old male admitted 03/03 after accidentally overdosing on tramadol leading to a fall. He ended up being unable to get himself up and slept that night in an unclear position. Heis now left with profound weakness of shoulder abduction on the right side. While he initially had significant shoulder pain, this now has improved. There is no corresponding sensory loss. Assessment of reflexes was limited by difficulty relaxing the limb, but I was unable to obtain a biceps reflex. Idoubt the questionable weakness of the left hip flexors is related, unlike the shoulder weakness, this involved significant give-way and reports of pain suggesting a functional limitation. Given the lack of weakness in the biceps and lack of any sensory deficit, this is not entirely consistent with an injury to the C5 nerve root, upper trunk of the brachial plexus, or axillary nerve (though the first two could explain the lack of the biceps reflex). I will need to defer to the primary service as to workup for any other soft tissue/rotator cuff or joint problem. Though I will note the absence of significant pain in these areas (though I have no familiarity with assessment for injury tothese areas). But in the absence of another explanation, I would start with an MRI of the cervical spine. Recommendations: - Defer to primary service assessment for injury to joint / soft tissue structures, if there is no obvious alternative cause, would order an MRI Cervical Spine without Contrast Praful Gaytan MD (general neurology) pgr [phone] 1. Acute right-sided weakness documented in this encounter ED Notes Bhavesh Lynn RN - 03/03/2021 12:16 PM CDT [facility] ED Nurse Handoff Report Jett Georges II is a 65 year old male ED Chief complaint: One-sided Weakness . ED Diagnosis: Final diagnoses: Acute right-sided weakness Allergies: Allergies Allergen Reactions ??? Zyban [Bupropion Hydrobromide] Hives Code Status: Full Code Activity level - Baseline/Home: Independent. Activity Level - Current: Assist X 1. Lift room needed:No. Bariatric: No Plant Engineering Supervisor Needed: No Isolation: No. Infection: Not Applicable. Vital Signs: Vitals: 03/03/21 1115 03/03/21 1130 03/03/21 1145 03/03/21 1200 BP: (!) 135/123 (!) 146/88 (!) 155/84 Pulse: 74 75 75 75 Resp: 8 15 16 (!) 7 Temp: SpO2: 95% 95% 95% Weight: Height: Cardiac Rhythm: , Pain level: Patient confused: No. Patient Falls Risk: Yes. Elimination Status: Has voided Patient Report - Initial Complaint: R arm drift. Focused Assessment: Jett Georges II is a 65 year old male with history of hypertension on aspirin, type 2 diabetes mellitus, esophageal reflux, JUSTIN, depression, and gastric bypass who presents via ambulance with generalized weakness. Last night the patient reports he accidentally took the wrong medication and ended up taking 8-10 tramadol tablets along with his regular medications. Around 2099 the patient was unable to get out of bed due to generalized weakness and fell to the floor. He ended up staying the night on the floor and did not get much sleep. This morning upon arrival to the ED he reports nausea and weakness to his right arm and leg which both started this morning. Last known normal 2100 yesterday. H e denies any vomiting, fever, diarrhea, problems with urination, chest pain, shortness of breath, abdominal pain, or vision changes. No headache. He denies any history of a stroke. The patient does have baseline leg pain due to his diabetic leg neuropathy. He denies any other symptoms. ?? Review of Systems Constitutional: Negative for fever. Eyes: Negative for visual disturbance. Respiratory: Negative for shortness of breath. Cardiovascular: Negative for chest pain. Gastrointestinal: Positive for nausea. Negative for abdominal pain, diarrhea and vomiting. Genitourinary: Negative for decreased urine volume, difficulty urinating, dysuria, frequency, hematuria and urgency. Musculoskeletal: Positive for myalgias (Bilateral leg pain). Neurological: Positive for weakness (right arm and leg). Psychiatric/Behavioral: Positive for sleep disturbance. All other systems reviewed and are negative. Tests Performed: CT, labs. Abnormal Results: Labs Ordered and Resulted from Time of ED Arrival Up to the Time of Departure from the ED COMPREHENSIVE METABOLIC PANEL - Abnormal; Notable for the following components: Result Value Sodium 126 (*) Chloride 92 (*) Glucose 180 (*) All other components within normal limits ROUTINE UA WITH MICROSCOPIC REFLEX TO CULTURE - Abnormal; Notable for the following components: Glucose Urine 150 (*) Mucus Urine Present (*) Uric Acid Crystals Urine Few (*) All other components within normal limits Narrative: Urine Culture not indicated GLUCOSE BY METER - Abnormal; Notable for the following components: GLUCOSE BY METER POCT 178 (*) All other components within normal limits CBC WITH PLATELETS AND DIFFERENTIAL - Abnormal; Notable for the following components: WBC Count 13.3 (*) Hemoglobin 12.4 (*) Hematocrit 38.3 (*) Absolute Neutrophils 10.7 (*) Absolute Immature Granulocytes 0.1 (*) All other components within normal limits CK TOTAL - Abnormal; Notable for the following components: CK 1,145 (*) All other components within normal limits LIPID PROFILE - Abnormal; Notable for the following components: Triglycerides 168 (*) All other components within normal limits Narrative: Cholesterol Desirable: <200 mg/dL Triglycerides Normal: Less than 150 mg/dL Borderline High: 150-199 mg/dL High: 200-499 mg/dL Very High: Greater than or equal to 500 mg/dL Direct Measure HDL Female: Greater than or equal to 50 mg/dL Male: Greater than or equal to 40 mg/dL LDL Cholesterol Desirable: <100mg/dL Above Desirable: 100-129 mg/dL Borderline High: 130-159 mg/dL High: 160-189 mg/dL Very High: >= 190 mg/dL Non HDL Cholesterol Desirable: 130 mg/dL Above Desirable: 130-159 mg/dL Borderline High: 160-189 mg/dL High: 190-219 mg/dL Very High: Greater than or equal to 220 mg/dL LIPASE - Normal TROPONIN I - Normal ETHYL ALCOHOL LEVEL - Normal INR - Normal PARTIAL THROMBOPLASTIN TIME - Normal COVID-19 VIRUS (CORONAVIRUS) BY PCR - Normal Narrative: Testing was performed using the octavia?? SARS-CoV-2 & Influenza A/B Assay on the octavia?? Niki?? System. This test should be ordered for the detection of SARS-COV-2 in individuals who meet SARS-CoV-2 clinical and/or epidemiological criteria. Test performance is unknown in asymptomatic patients. This test is for in vitro diagnostic use under the FDA EUA for laboratories certified under CLIA to perform moderate and/or high complexity testing. This test has not been FDA cleared or approved. A negative test does not rule out the presence of PCR inhibitors in the specimen or target RNA in concentration below the limit of detection for the assay. The possibility of a false negative should be considere d if the patient's recent exposure or clinical presentation suggests COVID-19. [facility] are certified under the Clinical Laboratory Improvement Amendments of 1988 (CLIA-88) as qualified to perform moderate and/or high complexity laboratory testing. EXTRA BLUE TOP TUBE EXTRA GREEN TOP (LITHIUM HEPARIN) TUBE EXTRA PURPLE TOP TUBE GLUCOSE MONITOR NURSING POCT PERIPHERAL IV CATHETER CARDIAC CONTINUOUS MONITORING INITIATE NOTIFY MEASURE WEIGHT VITAL SIGNS NEURO CHECKS PULSE OXIMETRY NURSING ACTIVITY HEAD OF BED IP DYSPHAGIA SCREEN IV ACCESS CBC WITH PLATELETS & DIFFERENTIAL Narrative: The following orders were created for panel order CBC with platelets differential. Procedure Abnormality Status --------- ------ CBC with platelets and d...[[id number]] Abnormal Final result Please view results for these tests on the individual orders. EXTRA TUBE Narrative: The following orders were created for panel order Extra Tube ([place] Draw). Procedure Abnormality Status --------- ------ Extra Blue Top Tube[[id number]] Final result Extra Green Top (Princess Anne...[[id number]] Final result Extra Purple Top Tube[[id number]] Final result Please view results for these tests on the individual orders. . Treatments provided: 325 mg ASA, IVF Family Comments: aware of admission OBS brochure/video discussed/provided to patient: N/A ED Medications: Medications 0.9% sodium chloride BOLUS (1,000 mLs Intravenous New Bag 03/03/21 1215) CT Scan Flush (96 mLs Intravenous Given 03/03/21 1008) iopamidol (ISOVUE-370) solution 500 mL (120 mLs Intravenous Given 03/03/21 1007) aspirin (ASA) tablet 325 mg (325 mg Oral Given 03/03/21 1121) Drips infusing: Yes For the majority of the shift, the patient's behavior Green. Interventions performed were n/a. Sepsis treatment initiated: No Patient tested for COVID 19 prior to admission: YES ED Nurse Name/Phone Number: Vanessa Murrieta RN, 12:16 PM RECEIVING UNIT ED HANDOFF REVIEW Above ED Nurse Handoff Report was reviewed: Yes Reviewed by: Bhavesh Lynn RN on March 03, 2021 at 2:26 PM Joanne Bauer RN - 03/03/2021 11:[address] Alvarez at bedside Joanne Bauer RN - 03/03/2021 11:25 AM CDT DATE: 03/03/2021 TIME OF RECEIPT FROM LAB: 1125 LAB TEST: CK LAB VALUE: 1145 RESULTS GIVEN WITH READ-BACK TO (PROVIDER): Antonio TIME LAB VALUE REPORTED TO PROVIDER: 1126 Joanne Bauer RN - 03/03/2021 10:08 AM CDT Pt arrives via EMS from home after on phone with son who report pt was slower to respond around 0700. Pt states he accidentally took 12 sleeping pills last night instead of his 2 pain pills last night.Then he said he slowly slipped out of bed and was too weak to get up. EMS found pt on the floor between the bed and the wall, EMS noted R arm drift. All other neuros WNL. Not on blood thinners. No HX CVA. BG 179 for EMS. ABC intact. Alem Carlin RN - 03/03/2021 9:45 AM CDT Bed: ED28 Expected date: Expected time: Means of arrival: Comments: Shree 65M Deandre Alvarez MD - 03/03/2021 9:44 AM CDT History Chief Complaint: Weakness The history is provided by the patient. Jett Georges II is a 65 year old male with history of hypertension on aspirin, type 2 diabetes mellitus, esophageal reflux, JUSTIN, depression, and gastric bypass who presents via ambulance with generalized weakness. Last night the patient reports he accidentally took the wrong medication and ended up taking 8-10 tramadol tablets along with his regular medications. Around 2100 the patient was unable to get out of bed due to generalized weakness and fell to the floor. He ended up staying the night on the floor and did not get much sleep. This morning upon arrival to the ED he reports nausea and weakness to his right arm and leg which both started this morning. Last known normal 2100 yesterday. He denies any vomiting, fever, diarrhea, problems with urination, chest pain, shortness of breath, abdominal pain, or vision changes. No headache. He denies any history of a stroke. The patient does have baseline leg pain due to his diabetic leg neuropathy. He denies any other symptoms. Review of Systems Constitutional: Negative for fever. Eyes: Negative for visual disturbance. Respiratory: Negative for shortness of breath. Cardiovascular: Negative for chest pain. Gastrointestinal: Positive for nausea. Negative for abdominal pain, diarrhea and vomiting. Genitourinary: Negative for decreased urine volume, difficulty urinating, dysuria, frequency, hematuria and urgency. Musculoskeletal: Positive for myalgias (Bilateral leg pain). Neurological: Positive for weakness (right arm and leg). Psychiatric/Behavioral: Positive for sleep disturbance. All other systems reviewed and are negative. Allergies: No known allergies. Medications: Esomeprazole Magnesium Ursodiol quetiapine duloxetine omeprazole gabapentin lisinopril lorazepam Aspirin 81 mg trazodone simvastatin Tramadol cyclobenzaprine metformin sildenafil hydrochlorothiazide Past Medical History: Essential hypertension DM2 (diabetes mellitus, type 2) STEVEN (obstructive sleep apnea) Alcohol abuse Esophageal reflux JUSTIN (generalized anxiety disorder) Gastric bypass Major depressive disorder, recurrent episode Obesity Tobacco use disorder Hypertriglyceridemia Peripheral neuropathy Incomplete right bundle branch block Arthritis Past Surgical History: Plasty knee, med or lat compartment Gastric bypass Hernia repair Tonsillectomy Social History: Presents with friend. PCP: Mario Keith No tobacco or alcohol usage. Physical Exam Patient Vitals for the past 24 hrs: BP Temp Pulse Resp SpO2 Height Weight 03/03/21 1130 (!) 146/88 -- 75 15 95 % -- -- 03/03/21 1045 123/79 -- 75 (!) 7 95 % -- -- 03/03/21 1030 (!) 148/75 -- 79 12 93 % -- -- 03/03/21 1004 -- -- -- -- -- 1.803 m (5' 11) 131.5 kg (290 lb) 03/03/21 1000 (!) 153/78 98.3 ??F (36.8 ??C) 80 13 95 % -- -- Physical Exam General: Nontoxic. Appears disheveled and chronically ill. Resting comfortably Head: Scalp, face, and head appear normal, atraumatic Eyes: Pupils are equal, round, EOMI, no nystagmus Conjunctivae non-injected and sclerae white ENT: The external nose is normal Pinnae are normal Neck: Normal range of motion There is no rigidity noted Trachea is in the midline CV: Regular rate and rhythm Normal S1/S2, no S3/S4 No murmur or rub. Radial pulses 2+ bilaterally. Resp: Lungs are clear and equal bilaterally There is no tachypnea No increased work of breathing No rales, wheezing, or rhonchi GI: Abdomen is soft, morbidly obese, no rigidity or guarding No distension, or mass No tenderness or rebound tenderness MS: Normal muscular tone Symmetric motor strength No lower extremity edema. No calf swelling or tenderness. Skin: No rash or acute skin lesions noted Neuro: A&Ox3, GCS 15 CN II - XII intact Speech clear, fluent, and normal Strength 3/6 at right shoulder and elbow. Unable to flex the shoulder. Unable to fully extend the right wrist. Mail Superintendent strength 5/5 and symmetric bilaterally. Left upper extremity and bilateral lower extremities with 5/5 strength. No pronator drift on left. Patient unable to hold up right arm. No leg drift. SILT throughout. No ankle clonus FTN testing normal in left upper extremity. No tremor. No meningismus Psych: Normal affect. Appropriate interactions. Emergency Department Course ECG ECG obtained at 0958, ECG read at 1009 Sinus rhythm with 1st degree AV block with occasional premature ventricular complexes. Left anteriorfascicular block. Abnormal ECG. No significant changes as compared to prior, dated 11/28/2017. Rate 83 bpm. WI interval 246 ms. QRS duration 122 ms. QT/QTc 394/462 ms. P-R-T axes 69 -72 19. Imaging: CT Head Perfusion w Contrast Final Result IMPRESSION: Questionable perfusion abnormality in the anterior temporal lobe. If clinically indicated, MRI might be helpful in further evaluation. JUAN LEAL MD SYSTEM ID: [id number] CTA Head Neck with Contrast Preliminary Result IMPRESSION: 1. Mild atherosclerotic disease involving several vessels without any significant stenosis. 2. No evidence for significant stenosis, dissection, thromboembolism, or aneurysm. CT Head w/o Contrast Final Result IMPRESSION: Chronic changes. No evidence for intracranial hemorrhage or any acute process. JUAN LEAL MD SYSTEM ID: [id number] Report per radiology Laboratory: Labs Ordered and Resulted from Time of ED Arrival Up to the Time of Departure from the ED COMPREHENSIVE METABOLIC PANEL - Abnormal; Notable for the following components: Result Value Sodium 126 (*) Chloride 92 (*) Glucose 180 (*) All other components within normal limits ROUTINE UA WITH MICROSCOPIC REFLEX TO CULTURE - Abnormal; Notable for the following components: Glucose Urine 150 (*) Mucus Urine Present (*) Uric Acid Crystals Urine Few (*) All other components within normal limits Narrative: Urine Culture not indicated GLUCOSE BY METER - Abnormal; Notable for the following components: GLUCOSE BY METER POCT 178 (*) All other components within normal limits CBC WITH PLATELETS AND DIFFERENTIAL - Abnormal; Notable for the following components: WBC Count 13.3 (*) Hemoglobin 12.4 (*) Hematocrit 38.3 (*) Absolute Neutrophils 10.7 (*) Absolute Immature Granulocytes 0.1 (*) All other components within normal limits CK TOTAL - Abnormal; Notable for the following components: CK 1,145 (*) All other components within normal limits LIPID PROFILE - Abnormal; Notable for the following components: Triglycerides 168 (*) All other components within normal limits Narrative: Cholesterol Desirable: <200 mg/dL Triglycerides Normal: Less than 150 mg/dL Borderline High: 150-199 mg/dL High: 200-499 mg/dL Very High: Greater than or equal to 500 mg/dL Direct Measure HDL Female: Greater than or equal to 50 mg/dL Male: Greater than or equal to 40 mg/dL LDL Cholesterol Desirable: <100mg/dL Above Desirable: 100-129 mg/dL Borderline High: 130-159 mg/dL High: 160-189 mg/dL Very High: >= 190 mg/dL Non HDL Cholesterol Desirable: 130 mg/dL Above Desirable: 130-159 mg/dL Borderline High: 160-189 mg/dL High: 190-219 mg/dL Very High: Greater than or equal to 220 mg/dL LIPASE - Normal TROPONIN I - Normal ETHYL ALCOHOL LEVEL - Normal INR - Normal PARTIAL THROMBOPLASTIN TIME - Normal EXTRA BLUE TOP TUBE EXTRA GREEN TOP (LITHIUM HEPARIN) TUBE EXTRA PURPLE TOP TUBE GLUCOSE MONITOR NURSING POCT COVID-19 VIRUS (CORONAVIRUS) BY PCR PERIPHERAL IV CATHETER CARDIAC CONTINUOUS MONITORING INITIATE NOTIFY MEASURE WEIGHT VITAL SIGNS NEURO CHECKS PULSE OXIMETRY NURSING ACTIVITY HEAD OF BED IP DYSPHAGIA SCREEN IV ACCESS CBC WITH PLATELETS & DIFFERENTIAL Narrative: The following orders were created for panel order CBC with platelets differential. Procedure Abnormality Status --------- ------ CBC with platelets and d...[[id number]] Abnormal Final result Please view results for these tests on the individual orders. EXTRA TUBE Narrative: The following orders were created for panel order Extra Tube ([place] Draw). Procedure Abnormality Status --------- ------ Extra Blue Top Tube[[id number]] Final result Extra Green Top ([place]...[[id number]] Final result Extra Purple Top Tube[[id number]] Final result Please view results for these tests on the individual orders. Emergency Department Course: Reviewed: I reviewed nursing notes, vitals, past medical history and Care Everywhere Assessments: 951 I obtained history and examined the patient as noted above. 0959 I called a tier 2 stroke. 1028 I deescalated the code stroke. 1128 I rechecked the patient and explained findings. Consults: 1003 I consulted with Mariya Chavarria Neuro, regarding the patient's history and presentation here in the emergency department. 1028 I consulted with Mariya Chavarria Neuro, regarding the patient's history and presentation here in the emergency department. [address] Leal, Radiologist, regarding the patient's history and presentation here in the emergency department. 1124 I consulted with Holder PA for Dr. Nunez of the hospitalist services who is in agreement to accept the patient for admission. Interventions: 1121 Aspirin, 325 mg, PO Disposition: The patient was admitted to the hospital under the care of Dr. Nunez. Impression & Plan [facility] Diagnoses: The patient has stroke symptoms: ED Stroke specific documentation NIHSS PDF Patient last known well time: 2100 yesterday ED Provider first to bedside at: 0952 CT Results received at: 1029 Thrombolytics: Not given due to minor/isolated/quickly resolving symptoms and unclear or unfavorable risk-benefit profile for extended window thrombolysis beyond the conventional 4.5 hour time window. If treating with thrombolytics: Ensure SBP<180 and DBP<105 prior to treatment with thrombolytics. Administering thrombolytics after treatment with IV labetalol, hydralazine, or nicardipine is reasonable once BP control is established. Endovascular Retrieval: Not initiated due to absence of proximal vessel occlusion National Institutes of Health Stroke Scale (Baseline) Time Performed: 0955 Score Level of consciousness: (0) Alert, keenly responsive LOC questions: (0) Answers both questions correctly LOC commands: (0) Performs both tasks correctly Best gaze: (0) Normal Visual: (0) No visual loss Facial palsy: (0) Normal symmetrical movements Motor arm (left): (0) No drift Motor arm (right): (2) Some effort against gravity Motor leg (left): (0) No drift Motor leg (right): (0) No drift Limb ataxia: (0) Absent Sensory: (0) Normal- no sensory loss Best language: (0) Normal- no aphasia Dysarthria: (0) Normal Extinction and inattention: (0) No abnormality Total Score: 2 Stroke Mimics were considered (including migraine headache, seizure disorder, hypoglycemia (or hyperglycemia), head or spinal trauma, [employer] infection, Toxin ingestion and shock state (e.g. sepsis) . Medical Decision Making: Jett Georges II is a 65 year old male with complex past medical history as noted above who presents for evaluation for right-sided weakness. On my evaluation he appears chronically unwell but hemodynamically stable, afebrile. Neurologic exam reveals focal neurologic deficits of the proximal right upper extremity with weakness. Patient reports subjective weakness in the right leg but has no objective weakness or leg drift in the legs. Patient does report a fall to the floor. Acute intracranialtrauma, hemorrhage is also considered. Emergency department work-up is consistent with possible acute stroke. It is unclear what role the mild tramadol overdose is playing. It has been greater than 12 hours since the overdose and certainly I would have expected the drug effects to have peaked by now. No reports of seizure. Code stroke was activated as noted above. CT head and CTA of the head and the neck without evidence of stroke, intracranial hemorrhage or proximal large vessel occlusion. CT perfusion revealed a questionable area of decreased perfusion in the anterior temporal lobe. Remainder of the ED work-up is otherwise consistent with mildly elevated CK, hyponatremia. The case was discussed with stroke neurology who recommended admission to the hospital and MRI for further evaluation. The case was discussed with the hospitalist and the patient was admitted in stable condition. Ethanol level negative. Patient denies any current alcohol use. Diagnosis: ICD-10-CM 1. Acute right-sided weakness R53.1 Scribe Disclosure: Tanisha Aparicio, am serving as a scribe at 9:50 AM on 03/03/2021 to document services personally performed by Deandre Alvarez MD based on my observations and the provider's statements to me. Denadre Alvarez MD 03/03/21 1206 documented in this encounter Miscellaneous Notes Plan of Care - Sandra Quintana RN - 03/06/2021 4:20 PM CDT Patient hospitalized for acute right sided weakness. Cleared for discharge to home today per MD. Discharge instructions, medications, and follow-ups reviewed with patient in detail. Discharge medication instructions reviewed. Patient verbalized understanding of discharge instructions. Belongings were returned to patient at time of discharge. Patients son providing transport home. Plan of Care - Alisson Penny OT - 03/06/2021 4:20 PM CDT Occupational Therapy Discharge Summary Reason for therapy discharge: Discharged to home with home therapy. Progress towards therapy goal(s). See goals on Care Plan in [facility] electronic health record for goal details. Goals not met. Barriers to achieving goals: limited tolerance for therapy and discharge from facility. Therapy recommendation(s): Continued therapy is recommended. Rationale/Recommendations: per treating OT Pt. currently needing A x 1-2 for functinal transfers, unable to complete stairs, needing setup and assist for toileting, bathring, G/H, dressing, and IADLs due to B knee pain, decreased balance, decreased cognition, and decreased R UE strength. Pt. lives alone in [facility] with 2 stairs to enter and 14 stairs up to bedroom with railing on right side (ascending). Pt. has noted difficulty with balance at baseline. Pt. reports could stay on couch on main floor if can do the two stairs into home and is motivated andplanning to return home. Pt. declined OOB/EOB activity during OT eval due to B knee pain. If pt. is unable to complete functional transfers without assistance and complete stairs, pt. would require a TCU stay. If pt. is able to complete stairs and functional transfers with AD and DME, pt. would benefit from home with assist with home OT. Pt. would benefit from skilled IP OT for ADL training, functional transfer training, R UE HEP, funcitonal standing tasks, and further cognitive assessment/training to assist with medication management and problem solving/insight. This patient was not seen by writing OT, information for discharge summary taken from treating OT's notes. Plan of Care - Boogie Belcher, PT - 03/06/2021 4:20 PM CDT Physical Therapy Discharge Summary Reason for therapy discharge: Discharged to home with home therapy. Progress towards therapy goal(s). See goals on Care Plan in Epic electronic health record for goal details. Goals not met. Barriers to achieving goals: discharge from facility. Therapy recommendation(s): Continued therapy is recommended. Rationale/Recommendations: Per prior PT recommendation was recommended, pt declined. Per prior PT- Pt will need help at home for meal prep, household tasks, reccommend home PT/OT, family to set up twice daily checks AM.PM. Plan of Care - Elaine Bonner RN - 03/06/2021 2:03 PM CDT End of Shift Summary For vital signs and complete assessments, please see documentation flowsheets. Pertinent assessments: AxO x4. Up with Ax1 with walker and gait belt. Denies N/V. R arm ROM limited.Worked with therapy, ambulating well. DME walker given. BG WNL. Treatment Plan: discharge home after MRI results Plan of Mathieu - Amelia Kiran RN - 03/06/2021 6:01 AM CDT End of Shift Summary For vital signs and complete assessments, please see documentation flowsheets. Pertinent assessments: AxO x4. Up with Ax1 with walker and gait belt. Complained of headache, tylenol given. Denies N/V. Was able to raise right arm with no assistance. Pt refused B.G. check at 0200. Major Shift Events: N/A. Treatment Plan: discharge home 03/06 Bedside Nurse: Amelia Kiran RN Plan of Amelia Bro RN - 03/05/2021 5:05 AM CDT End of Shift Summary For vital signs and complete assessments, please see documentation flowsheets. Pertinent assessments: AxO x4. Up with Ax1 and walker and gait belt. Complaints of knee pain, tramadol given. R sided arm weakness improving. Major Shift Events: Walked to bathroom with Ax1 with walker and gait belt. Treatment Plan: PT/OT. Discharge home today with home care. Bedside Nurse: Amelia Kiran RN Plan of Care - Erika Henley PT - 03/04/2021 4:49 PM CDT Images from the original note were not included. [facility] OUTPATIENT PHYSICAL THERAPY EVALUATION PLAN OF TREATMENT FOR OUTPATIENT REHABILITATION (COMPLETE FOR INITIAL CLAIMS ONLY) Patient's Last Name, First Name, M.I. Date of : 1955 Jett Georges Provider's Name [facility] Onset Date: 03/03/21 Start of Care Date: 03/04/2021 Type: _X_PT ___OT ___SLP Medical Diagnosis: R-sided weakness PT Diagnosis: Impaired fn mobility Visits from SOC: 1 _ Plan of Treatment/Functional Goals Planned Interventions: bed mobility training, balance training, patient/family education, stair training, strengthening, gait training, neuromuscular re- education, stretching, transfer training Goals: See Physical Therapy Goals on Care Plan in [facility] electronic health record. Therapy Frequency: Daily Predicted Duration of Therapy Intervention: 3 days _ I CERTIFY THE NEED FOR THESE SERVICES FURNISHED UNDER THIS PLAN OF TREATMENT AND WHILE UNDER MY CARE (Physician co-signature of this document indicates review and certification of the therapy plan). , Referring Physician: Sandeep Nunez, DO Initial Assessment See Physical Therapy evaluation dated in [facility] electronic health record. Associated attestation - Romaine Eng MD - 03/04/2021 6:08 PM CDT I CERTIFY THE NEED FOR THESE SERVICES FURNISHED UNDER THIS PLAN OF TREATMENT AND WHILE UNDER MY CARE (Physician co-signature of this document indicates review and certification of the therapy plan). Utilization Review - Nikki Gonzalez MD - 03/04/2021 12:10 PM CDT [employer] Admission Status; Secondary Review Determination Admission Date: 03/03/2021 9:44 AM Under the authority of the Utilization Management Committee, the utilization review process indicated a secondary review on the above patient. The review outcome is based on review of the medical records, discussions with staff, and applying clinical experience noted on the date of the review. () Inpatient Status Appropriate - This patient's medical care is consistent with medical management for inpatient care and reasonable inpatient medical practice. (X) Observation Status Appropriate - This patient does not meet hospital inpatient criteria and is placed in observation status. If this patient's primary payer is Medicare and was admitted as an inpatient, Condition Code 44 should be used and patient status changed to observation. () Admission Status NOT Appropriate - This patient's medical care is not consistent with medical management for Inpatient or Observation Status. RATIONALE FOR DETERMINATION 65 yo male with HTN, DM II, obesity and depression/anxiety who presented to the ER with R sided weakness (upper > lower), grogginess and accidental overdose of tramadol. CT with possible perfusion abnormality in the temporal lobe. Stroke neuro consulted and recommended MRI which was without evidence of acute pathology. Continues to have some RUE weakness per nursing notes. Neuro note pending for today. At this time is more appropriate for observation care. Have discussed with Dr. Eng, the physician caring for the patient today, who has placed the observation order. The severity of illness, intensity of service provided, expected LOS and risk for adverse outcome make the care appropriate for further observation. The information on this document is developed by the utilization review team in order for the business office to ensure compliance. This only denotes the appropriateness of proper admission status and does not reflect the quality of care rendered. The definitions of Inpatient Status and Observation Status used in making the determination above are those provided in the CMS Coverage Manual, Chapter 1 and Chapter 6, section 70.4. Sincerely, Nikki Gonzalez MD MPH Utilization Review [facility]. Plan of Care - Amelia Kiran RN - 03/04/2021 4:28 AM CDT End of Shift Summary For vital signs and complete assessments, please see documentation flowsheets. Pertinent assessments: AxO x4. Denies N/V. Ax1/2. R side weakness, can bend elbow but not lift arm off bed by himself. Pt complained of bilateral knee pain, oxy given. Major Shift Events: N/A. Treatment Plan: PT and OT. Neuro consult. Bedside Nurse: Amelia Kiran RN Pharmacy-Admission Medication History - Varinder Daniels [facility] - 03/03/2021 2:10 PM CDT Admission medication history interview status for this patient is complete. See [facility] admission navigator for allergy information, prior to admission medications and immunization status. Medication history interview done, indicate source(s): Patient Medication history resources (including written lists, pill bottles, clinic record):[facility]: [id number] [place], [place] - [address] [address] Changes made to [facility] medication list: Added: all meds Changed: trazodone 75 mg TID -> at bedtime Reported as Not Taking: none Removed: none Actions taken by pharmacist (provider contacted, etc):left sticky note for provider Additional medication history information: - Patient may have confused trazodone with tramadol and took about 10 tramadol tablets in total yesterday. - The current medication list was completed to the best of medical technical writer's ability using available resources (e.g. [facility] dispensing records, Care Everywhere, chart review notes, and/or patient's relatives or friends). Medication reconciliation/reorder completed by provider prior to medication history? N Prior to Admission medications Medication Sig Last Dose Taking? Auth Provider allopurinol (ZYLOPRIM) 300 MG tablet Take 1 tablet by mouth daily 03/02/2021 at Unknown time Yes Unknown, Entered By History aspirin (ASA) 81 MG chewable tablet Take 81 mg by mouth daily 03/02/2021 at had full dose today 03/03 in the ED Yes Unknown, Entered By History gabapentin (NEURONTIN) 300 MG capsule Take 900 mg by mouth 3 times daily 03/02/2021 at Unknown time Yes Unknown, Entered By History lisinopril (ZESTRIL) 20 MG tablet Take 20 mg by mouth daily 03/02/2021 at Unknown time Yes Unknown, Entered By History LORazepam (ATIVAN) 1 MG tablet Take 1 mg by mouth 3 times daily as needed 03/02/2021 at PRN Yes Unknown, Entered By History meloxicam (MOBIC) 15 MG tablet Take 15 mg by mouth daily 03/02/2021 at Unknown time Yes Unknown, Entered By History metFORMIN (GLUCOPHAGE) 500 MG tablet Take 500 mg by mouth 3 times daily (with meals) 03/02/2021 at Unknown time Yes Unknown, Entered By History omeprazole (PRILOSEC) [address] capsule Take 40 mg by mouth daily 03/02/2021 at Unknown time Yes Unknown, Entered By History QUEtiapine (SEROQUEL) 200 MG tablet Take 200 mg by mouth At Bedtime 03/02/2021 at HS Yes Unknown, Entered By History sertraline (ZOLOFT) 50 MG tablet Take 50 mg by mouth daily 03/02/2021 at Unknown time Yes Unknown, Entered By History simvastatin (ZOCOR) 20 MG tablet Take 20 mg by mouth daily (with dinner) 03/02/2021 at Unknown time Yes Unknown, Entered By History tamsulosin (FLOMAX) 0.4 MG capsule Take 0.4 mg by mouth daily 03/02/2021 at Unknown time Yes Unknown, Entered By History traMADol (ULTRAM) 50 MG tablet Take 1-2 tablets by mouth every 6 hours as needed for pain 1at Unknown time Yes Unknown, Entered By History traZODone (DESYREL) 50 MG tablet Take 75 mg by mouth At Bedtime 03/02/2021 at Unknown time Yes Unknown, Entered By History documented in this encounter Plan of Treatment Scheduled Referrals Name Type Priority Associated Diagnoses Order S chedule Home care nursing Referral Routine: Next Acute right-sided Orde red: referral available opening weakness 03/05/2021 Moderate episode of recurrent major depressive disorder (H) JUSTIN (generalized anxiety disorder ) Essential hypertension Home Care PT Referral Routine: Next Acute right-sided Ordered: Referral for available opening weakness 03/05/2021 Hospital Discharge Moderate episode of recurrent major depressive disorder (H) JUSTIN (generalized anxiety disorder ) Essential hypertension Home Care OT Referral Routine: Next Acute right-sided Ordered: Referral for available opening weakness 03/05/2021 Hospital Discharge Moderate episode of recurrent major depressive disorder (H) JUSTIN (generalized anxiety disorder ) Essential hypertension documented as of this encounter Procedures Procedure Name Priority Date/Time Associated Comments Diagnosis GLUCOSE BY METER Routine 03/06/2021 1:26 PM Resul ts for this CDT procedure are i n the results section. MR BRACHIAL PLEXUS Routine 03/06/2021 1:13 PM Res ults for this RIGHT W/O & W CONTRAST CDT proce dure are in the results section. GLUCOSE BY METER Routine 03/06/2021 7:24 AM Resul ts for this CDT procedure are i n the results section. GLUCOSE BY METER Routine 03/05/2021 9:34 PM Resul ts for this CDT procedure are i n the results section. GLUCOSE BY METER Routine 03/05/2021 5:39 PM Resul ts for this CDT procedure are i n the results section. GLUCOSE BY METER Routine 03/05/2021 12:52 Results for this PM CDT procedure are i n the results section. MR CERVICAL SPINE W/O Routine 03/05/2021 11:03 Re sults for this CONTRAST AM CDT procedure are i n the results section. GLUCOSE BY METER Routine 03/05/2021 7:20 AM Resul ts for this CDT procedure are i n the results section. GLUCOSE BY METER Routine 03/05/2021 1:52 AM Resul ts for this CDT procedure are i n the results section. GLUCOSE BY METER Routine 03/04/2021 10:17 Results for this PM CDT procedure are i n the results section. GLUCOSE BY METER Routine 03/04/2021 5:57 PM Resul ts for this CDT procedure are i n the results section. GLUCOSE BY METER Routine 03/04/2021 11:55 Results for this AM CDT procedure are i n the results section. CK TOTAL Routine 03/04/2021 8:02 AM Results f or this CDT procedure are i n the results section. BASIC METABOLIC PANEL Routine 03/04/2021 8:02 AM Results for this CDT procedure are i n the results section. CBC WITH PLATELETS Routine 03/04/2021 8:02 AM Res ults for this CDT procedure are i n the results section. GLUCOSE BY METER Routine 03/04/2021 7:53 AM Resul ts for this CDT procedure are i n the results section. GLUCOSE BY METER Routine 03/04/2021 2:18 AM Resul ts for this CDT procedure are i n the results section. LACTIC ACID WHOLE BLOOD Timed 03/03/2021 9:54 PM Results for this CDT procedure are i n the results section. SODIUM Timed 03/03/2021 8:29 PM Results f or this CDT procedure are i n the results section. GLUCOSE BY METER Routine 03/03/2021 7:49 PM Resul ts for this CDT procedure are i n the results section. GLUCOSE BY METER Routine 03/03/2021 5:54 PM Resul ts for this CDT procedure are i n the results section. LACTIC ACID WHOLE BLOOD STAT 03/03/2021 3:47 PM Results for this CDT procedure are i n the results section. HEMOGLOBIN A1C STAT 03/03/2021 3:47 PM Results for this CDT procedure are i n the results section. SODIUM Routine 03/03/2021 3:47 PM Results f or this CDT procedure are i n the results section. MR BRAIN W/O & W STAT 03/03/2021 1:50 PM Resul ts for this CONTRAST CDT procedure are i n the results section. COVID-19 VIRUS STAT 03/03/2021 11:39 Results f or this (CORONAVIRUS) BY PCR AM CDT procedu re are in the results section. ROUTINE UA WITH STAT 03/03/2021 11:03 Results for this MICROSCOPIC REFLEX TO AM CDT proced ure are in CULTURE the results section. CT HEAD PERFUSION W STAT 03/03/2021 10:19 Resu lts for this CONTRAST AM CDT procedure are i n the results section. CTA HEAD NECK W STAT 03/03/2021 10:16 Results for this CONTRAST AM CDT procedure are i n the results section. CT HEAD W/O CONTRAST STAT 03/03/2021 10:13 Res ults for this AM CDT procedure are i n the results section. EKG 12-LEAD, TRACING STAT 03/03/2021 9:58 AM R esults for this ONLY CDT procedure are i n the results section. EXTRA TUBE STAT 03/03/2021 9:58 AM Results f or this CDT procedure are i n the results section. EXTRA PURPLE TOP TUBE STAT 03/03/2021 9:58 AM Results for this CDT procedure are i n the results section. EXTRA GREEN TOP STAT 03/03/2021 9:58 AM Result s for this (LITHIUM HEPARIN) TUBE CDT proce dure are in the results section. EXTRA BLUE TOP TUBE STAT 03/03/2021 9:58 AM Re sults for this CDT procedure are i n the results section. CBC WITH PLATELETS AND STAT 03/03/2021 9:58 AM Results for this DIFFERENTIAL CDT procedure are i n the results section. CBC WITH PLATELETS & STAT 03/03/2021 9:58 AM R esults for this DIFFERENTIAL CDT procedure are i n the results section. TROPONIN I STAT 03/03/2021 9:58 AM Results f or this CDT procedure are i n the results section. INR STAT 03/03/2021 9:58 AM Results f or this CDT procedure are i n the results section. PARTIAL THROMBOPLASTIN STAT 03/03/2021 9:58 AM Results for this TIME CDT procedure are i n the results section. LIPID PROFILE STAT 03/03/2021 9:58 AM Results for this CDT procedure are i n the results section. LIPASE STAT 03/03/2021 9:58 AM Results f or this CDT procedure are i n the results section. COMPREHENSIVE METABOLIC STAT 03/03/2021 9:58 AM Results for this PANEL CDT procedure are i n the results section. CK TOTAL STAT 03/03/2021 9:58 AM Results f or this CDT procedure are i n the results section. ETHYL ALCOHOL LEVEL STAT 03/03/2021 9:58 AM Re sults for this CDT procedure are i n the results section. GLUCOSE BY METER STAT 03/03/2021 9:48 AM Resul ts for this CDT procedure are i n the results section. documented in this encounter Results (ABNORMAL) Glucose by meter (03/06/2021 1:26 PM CDT) P athologist Signature GLUCOSE BY 131 (H) 70 - 99 03/06/2021 [facility] METER POCT mg/dL 1:33 PM CDT POC Specimen Anatomical Collection Method Collection Time Receive d Time (Source) Location / / Volume Laterality Blood BLOOD SPECIMEN / 03/06/2021 1:26 PM 03/06 1:33 Unknown CDT PM CDT Sandeep Nunez DO LAB - BEAKER POCT Performing Organization Address City/State/ZIP Code Phon e Number [facility] [place] [address] [facility] [address] Lab (1st floor, no room number) MR Brachial Plexus Right wo & w Contrast (03/06/2021 1:13 PM CDT) Anatomical Region Laterality Modality Neck, SUBRAD MR NEURO, UMP MR NEURO, RAD MR Magnetic Resonance Specimen (Source) Anatomical Location Collection Method / Collectio n Time Received Time / Laterality Volume Impressions 03/06/2021 2:48 PM CDT IMPRESSION: 1. ??Normal signal in the right brachial plexus. 2. ??Moderate right C5-6 neural foramina l stenosis better seen on the comparison cervical spine MRI. 3. ??Edema in the left dorsal paraspinal muscles best visualized on coronal T2-weighted STIR images which in clude each brachial plexus in the [id number]. JOHN HAWTHORNE MD SYSTEM ID: ??[id number] Narrative 03/06/2021 2:48 PM CDT MRI OF THE CERVICAL SPINE WITHOUT AND WITH CONTRAST 03/06/2021 1:13 PM HISTORY: Right brachial plexopathy. TECHNIQUE: Multiplanar, multisequence br achial plexus MRI without and with 14 mL Gadavist IV contrast. COMPARISON: Cervical spine MRI 1. FINDINGS: No mass or lymphadenopathy. Mi ld edema in the left dorsal paraspinal muscles best visualized on bi lateral coronal T2-weighted STIR images 29 through 31. No abnormal s ignal in either brachial plexus on this sequence. Dedicated image s of the right brachial plexus also demonstrate normal signal on all se quences. No abnormal brachial plexus enhancement. Moderate right C5-6 neural foraminal meet nosis better visualized on the comparison cervical spine MRI. Procedure Note John Hawthorne MD - 03/06/2021Format ting of this note might be different from the original. MRI OF THE CERVICAL SPINE WITHOUT AND WI TH CONTRAST 03/06/2021 1:13 PM HISTORY: Right brachial plexopathy. TECHNIQUE: Multiplanar, multisequence br achial plexus MRI without and with 14 mL Gadavist IV contrast. COMPARISON: Cervical spine MRI . FINDINGS: No mass or lymphadenopathy. Mi ld edema in the left dorsal paraspinal muscles best visualized on bi lateral coronal T2-weighted STIR images 29 through 31. No abnormal s ignal in either brachial plexus on this sequence. Dedicated image s of the right brachial plexus also demonstrate normal signal on all se quences. No abnormal brachial plexus enhancement. Moderate right C5-6 neural foraminal meet nosis better visualized on the comparison cervical spine MRI. IMPRESSION: 1. Normal signal in the right brachial p campbell. 2. Moderate right C5-6 neural foraminal stenosis better seen on the comparison cervical spine MRI. 3. Edema in the left dorsal paraspinal m uscles best visualized on coronal T2-weighted STIR images which in clude each brachial plexus in the [id number]. JOHN HAWTHORNE MD SYSTEM ID: [id number] Veronica Murrell PA-C IMG MRI ORDERABLES (ABNORMAL) Glucose by meter (03/06/2021 7:24 AM CDT) P athologist Signature GLUCOSE BY 165 (H) 70 - 99 03/06/2021 [facility] METER POCT mg/dL 7:35 AM CDT POC Specimen Anatomical Collection Method Collection Time Receive d Time (Source) Location / / Volume Laterality Blood BLOOD SPECIMEN / 03/06/2021 7:24 AM 03/06 7:35 Unknown CDT AM CDT Sandeep PATEL POCT Performing Organization Address City/State/ZIP Code Phon e Number [facility] [place] [address] Care [facility] [address] Lab (1st floor, no room number) (ABNORMAL) Glucose by meter (03/05/2021 9:34 PM CDT) P athologist Signature GLUCOSE BY 194 (H) 70 - 99 03/05/2021 [facility] METER POCT mg/dL 9:41 PM CDT POC Specimen Anatomical Collection Method Collection Time Receive d Time (Source) Location / / Volume Laterality Blood BLOOD SPECIMEN / 03/05/2021 9:34 PM 03/05 9:41 Unknown CDT PM CDT Sandeep HANNAH - BEAKER POCT Performing Organization Address City/State/ZIP Code Phon e Number [facility] [place] [address] Care Lab [address] Lab (1st floor, no room number) (ABNORMAL) Glucose by meter (03/05/2021 5:39 PM CDT) P athologist Signature GLUCOSE BY 143 (H) 70 - 99 03/05/2021 [facility] METER POCT mg/dL 5:51 PM CDT POC Specimen Anatomical Collection Method Collection Time Receive d Time (Source) Location / / Volume Laterality Blood BLOOD SPECIMEN / 03/05/2021 5:39 PM 03/05 5:51 Unknown CDT PM CDT Sandeep Nunez DO LAB - BEAKER POCT Performing Organization Address City/State/ZIP Code Phon e Number [facility] [place] [address] Care Lab [address] Lab (1st floor, no room number) (ABNORMAL) Glucose by meter (03/05/2021 12:52 PM CDT) P athologist Signature GLUCOSE BY 137 (H) 70 - 99 03/05/2021 [facility] METER POCT mg/dL 12:58 PM CDT POC Specimen Anatomical Collection Method Collection Time Receive d Time (Source) Location / / Volume Laterality Blood BLOOD SPECIMEN / 03/05/2021 12:52 10/17/2 021 Unknown PM CDT 12:58 PM CDT Sandeep HANNAH - ENEDINA POCT Performing Organization Address City/State/ZIP Code Phon [place] [address] Care Lab [address] Lab (1st floor, no room number) MR Cervical Spine w/o Contrast (03/05/2021 11:03 AM CDT) Anatomical Region Laterality Modality Spine, SUBRAD MR NEURO, UMP MR SPINE, RAD MR Magnetic Resonance Specimen (Source) Anatomical Collection Method Collection Time Re ceived Time Location / / Volume Laterality 03/05/2021 10:42 AM CDT Impressions 03/05/2021 11:25 AM CDT IMPRESSION: 1. ??Right paracentral and foraminal pro trusion with uncinate spurring C5-C6 with mild to moderate spinal canal narrowing and moderate to moderately severe right and mild to moderate left neural foraminal narrowing. 2. ??Multilevel degenerative disc and fa cet changes as described on a level by level basis elsewhere. Narrative 03/05/2021 11:25 AM CDT EXAM: MR CERVICAL SPINE W/O CONTRAST LOCATION: [facility] DATE/TIME: 03/05/2021 10:42 AM INDICATION: Cervical radiculopathy. COMPARISON: No priors available. TECHNIQUE: MRI Cervical Spine without IV contrast. FINDINGS: The cervical spine is essentially in nikia tomic alignment with a trace of anterolisthesis at C2-C3 and C3-C4 with a trace of retrolisthesis at C4-C5. Vertebral body heights are maintained. No focal pathol ogic marrow replacement. No abnormal cor d signal. No extraspinal abnormality. Craniovertebral junction and C1-C2: Mild degenerative changes otherwise unremarkable. C2-C3: Disc, facets, canal and foramina without significant abnormality. C3-C4: Slight disc osteophyte complex mo re to the left side with slight left uncinate spurring and tiny central disc protrusion. Facets within normal limits. Canal patent, right foramen patent, mild left neural foraminal encroachment. C4-C5: Mild disc osteophyte complex. Sli ght facet hypertrophy bilaterally. Minimal spinal canal encroachment, minimal bilateral neural foraminal narrowing. C5-C6: Decreased disc height, mild to mo derate disc osteophyte complex more to the right side with small right paracentral-foraminal protrusion and uncinate spurring right more than left. Mild facet art hropathy bilaterally. Mild to moderate s william canal narrowing, moderate to moderately severe right and mild/moderate left neural foraminal stenosis. C6-C7: Slight shallow central disc protr usion. Mild facet hypertrophy bilaterally. Minimal spinal canal narrowing, minimal neural foraminal narrowing bilaterally. C7-T1: Slightly diminished disc height, mild to moderate facet arthropathy. Canal and foramina patent. Procedure Note Terry Wills MD - 1 EXAM: MR CERVICAL SPINE W/O CONTRAST LOCATION: [facility] DATE/TIME: 03/05/2021 10:42 AM INDICATION: Cervical radiculopathy. COMPARISON: No priors available. TECHNIQUE: MRI Cervical Spine without IV contrast. FINDINGS: The cervical spine is essentially in nikia tomic alignment with a trace of anterolisthesis at C2-C3 and C3-C4 with a trace of retrolisthesis at C4-C5. Vertebral body heights are maintained. No focal pathologic marrow replacement. No abnormal cord signal. No extraspinal abnormality. Craniovertebral junction and C1-C2: Mild degenerative changes otherwise unremarkable. C2-C3: Disc, facets, canal and foramina without significant abnormality. C3-C4: Slight disc osteophyte complex mo re to the left side with slight left uncinate spurring and tiny central disc protrusion. Facets within normal limits. Canal patent, right foramen patent, mild left neural foraminal encroachment. C4-C5: Mild disc osteophyte complex. Sli ght facet hypertrophy bilaterally. Minimal spinal canal encroachment, minimal bilateral neural foraminal narrowing. C5-C6: Decreased disc height, mild to mo derate disc osteophyte complex more to the right side with small right paracentral-foraminal protrusion and uncinate spurring right more than left. Mild facet arthropathy bilaterally. Mild to moderate spinal can al narrowing, moderate to moderately severe right and mild/moderate left neural foraminal stenosis. C6-C7: Slight shallow central disc protr usion. Mild facet hypertrophy bilaterally. Minimal spinal canal narrowing, minimal neural foraminal narrowing bilaterally. C7-T1: Slightly diminished disc height, mild to moderate facet arthropathy. Canal and foramina patent. IMPRESSION: 1. Right paracentral and foraminal protr usion with uncinate spurring C5-C6 with mild to moderate spinal canal narrowing and moderate to moderately severe right and mild to moderate left neural foraminal narrowing. 2. Multilevel degenerative disc and face t changes as described on a level by level basis elsewhere. Senthil Zhao MD IMG MRI ORDERABLES (ABNORMAL) Glucose by meter (03/05/2021 7:20 AM CDT) P athologist Signature GLUCOSE BY 171 (H) 70 - 99 03/05/2021 [facility] METER POCT mg/dL 7:27 AM CDT POC Specimen Anatomical Collection Method Collection Time Receive d Time (Source) Location / / Volume Laterality Blood BLOOD SPECIMEN / 03/05/2021 7:20 AM 03/05 7:27 Unknown CDT AM CDT Sandeep HANNAH [email or web address] POCT Performing Organization Address City/[facility]/ZIP Code Phon [place] [address] Care Lab [address] Lab (1st floor, no room number) (ABNORMAL) Glucose by meter (03/05/2021 1:52 AM CDT) P athologist Signature GLUCOSE BY 132 (H) 70 - 99 03/05/2021 [facility] METER POCT mg/dL 1:59 AM CDT POC Specimen Anatomical Collection Method Collection Time Receive d Time (Source) Location / / Volume Laterality Blood BLOOD SPECIMEN / 03/05/2021 1:52 AM 03/05 1:59 Unknown CDT AM CDT Sandeep Nunez DO LAB - BEAKER POCT Performing Organization Address City/[facility]/ZIP Code Ph[place] [address] Care Lab [address] Lab (1st floor, no room number) (ABNORMAL) Glucose by meter (03/04/2021 10:17 PM CDT) P athologist Signature GLUCOSE BY 139 (H) 70 - 99 03/04/2021 [facility] METER POCT mg/dL 10:24 PM CDT POC Specimen Anatomical Collection Method Collection Time Receive d Time (Source) Location / / Volume Laterality Blood BLOOD SPECIMEN / 03/04/2021 10:17 021 Unknown PM CDT 10:24 PM CDT Sandeep Nunez DO LAB - BEAKER POCT Performing Organization Address City/[facility]/ZIP Code Phon [place] [address] Care Lab [address] Lab (1st floor, no room number) (ABNORMAL) Glucose by meter (03/04/2021 5:57 PM CDT) P athologist Signature GLUCOSE BY 146 (H) 03/04/2021 [facility] METER POCT mg/dL 6:04 PM CDT POC Specimen Anatomical Collection Method Collection Time Receive d Time (Source) Location / / Volume Laterality Blood BLOOD SPECIMEN / 03/04/2021 5:57 PM 03/04 6:04 Unknown CDT PM CDT Sandeep Nunez DO LAB - BEAKER POCT Performing Organization Address City/[facility]/ZIP Code Phon [place] [address] Care Lab [address] Lab (1st floor, no room number) (ABNORMAL) Glucose by meter (03/04/2021 11:55 AM CDT) P athologist Signature GLUCOSE BY 193 (H) 03/04/2021 [facility] METER POCT mg/dL 12:02 PM CDT POC Specimen Anatomical Collection Method Collection Time Receive d Time (Source) Location / / Volume Laterality Blood BLOOD SPECIMEN / 03/04/2021 11:55 021 Unknown AM CDT 12:02 PM CDT Sandeep Nunez DO LAB - BEAKER POCT Performing Organization Address City/State/ZIP Code Phon [place] [address] Care Lab [address] Lab (1st floor, no room number) (ABNORMAL) CK total (03/04/2021 8:02 AM CDT) P athologist Signature CK 729 (H) 30 - 300 03/04/2021 [facility] U/L 8:36 AM CDT Specimen Anatomical Collection Method / Collection Time Recei karin Time (Source) Location / Volume Laterality Blood STRUCTURE OF RIGHT Venipuncture / 03/04/2021 8:02 02/17 8:15 HAND / Unknown Unknown AM CDT AM CDT Carli Holder PA-C LAB - BLOOD ORDERABLES Performing Organization Address City/State/ZIP Code Phon e Number [facility] [place] [address] Care Lab [address] Lab (1st floor, no room number) (ABNORMAL) CBC with platelets (03/04/2021 8:02 AM CDT) Patholo gist Method Time Signature WBC Count 8.6 4.0 - 11.0 03/04/2021 [facility] 10e3/uL 8:18 AM CDT RBC Count 4.33 (L) 4.40 - 03/04/2021 [facility] 5.90 8:18 AM CDT 10e6/uL Hemoglobin 12.4 (L) 13.3 - 03/04/2021 [facility] 17.7 g/dL 8:18 AM CDT Hematocrit 37.7 (L) 40.0 - 03/04/2021 [facility] 53.0 % 8:18 AM CDT MCV 87 78 - 100 03/04/2021 [facility] fL 8:18 AM CDT MCH 28.6 26.5 - 03/04/2021 [facility] 33.0 pg 8:18 AM CDT MCHC 32.9 31.5 - 03/04/2021 [facility] 36.5 g/dL 8:18 AM CDT RDW 13.1 10.0 - 03/04/2021 [facility] 15.0 % 8:18 AM CDT Platelet Count 290 150 - 450 03/04/2021 [facility] 10e3/uL 8:18 AM CDT Specimen Anatomical Collection Method / Collection Time Recei karin Time (Source) Location / Volume Laterality Blood STRUCTURE OF RIGHT Venipuncture / 03/04/2021 8:02 02/17 8:15 HAND / Unknown Unknown AM CDT AM CDT Carli Holder PA-C LAB - BLOOD ORDERABLES Performing Organization Address City/State/ZIP Code Phon e Number [facility] [place] [address] Care Lab [address] Lab (1st floor, no room number) (ABNORMAL) Basic metabolic panel (03/04/2021 8:02 AM CDT) [facility] Method Time Signature Sodium 132 (L) 133 - 144 03/04/2021 LABORATORY mmol/L 8:33 AM CDT Potassium 4.4 3.4 - 5.3 03/04/2021 LABORATORY mmol/L 8:33 AM CDT Chloride 100 94 - 109 03/04/2021 LABORATORY mmol/L 8:33 AM CDT Carbon Dioxide 26 20 - 32 03/04/2021 LABORATORY (CO2) mmol/L 8:33 AM CDT Anion Gap 6 3 - 14 03/04/2021 LAB[facility]AT[facility] mmol/L 8:33 AM CDT Urea Nitrogen 6 (L) 7 - 30 03/04/2021 LABORATORY mg/dL 8:33 AM CDT Creatinine 0.65 (L) 0.66 - 03/04/2021 LABORATORY 1.25 mg/dL 8:33 AM CDT Calcium 8.8 8.5 - 10.1 03/04/2021 LABORATORY mg/dL 8:33 AM CDT Glucose 203 (H) 70 - 99 03/04/2021 LABORATORY mg/dL 8:33 AM CDT GFR Estimate >90 >60 03/04/2021 LABORATORY mL/min/1.7 8:33 AM CDT 3m2 Comment: As of November 27, 2020, eGFR is ca lculated by the CKD-EPI creatinine equation, without race adjustment. eGFR can be inf luenced by muscle mass, exercise, and diet. The reported eGFR is an estimation only and is only applicable if the renal function is stable. Specimen Anatomical Collection Method / Collection Time Recei karin Time (Source) Location / Volume Laterality Blood STRUCTURE OF RIGHT Venipuncture / 03/04/2021 8:02 02/17 8:15 HAND / Unknown Unknown AM CDT AM CDT Carli Holder PA-C LAB - BLOOD ORDERABLES Performing Organization Address City/[facility]/ZIP Code Phon e Number [place] [address] Care Lab [address] Lab (1st floor, no room number) (ABNORMAL) Glucose by meter (03/04/2021 7:53 AM CDT) P athologist Signature GLUCOSE BY 192 (H) 70 - 99 03/04/2021 [facility] METER POCT mg/dL 7:59 AM CDT POC Specimen Anatomical Collection Method Collection Time Receive d Time (Source) Location / / Volume Laterality Blood BLOOD SPECIMEN / 03/04/2021 7:53 AM 03/04 7:59 Unknown CDT AM CDT Sandeep Nunez DO LAB - BEAKER POCT Performing Organization Address City/[facility]/ZIP Code [place] [address] Care Lab [address] Lab (1st floor, no room number) (ABNORMAL) Glucose by meter (03/04/2021 2:18 AM CDT) P athologist Signature GLUCOSE BY 168 (H) 70 - 99 03/04/2021 [facility] METER POCT mg/dL 2:25 AM CDT POC Specimen Anatomical Collection Method Collection Time Receive d Time (Source) Location / / Volume Laterality Blood BLOOD SPECIMEN / 03/04/2021 2:18 AM 03/04 2:25 Unknown CDT AM CDT Sandeep Nunez DO LAB - BEAKER POCT Performing Organization Address City/[facility]/ZIP Code Ph[place] [address] Care Lab [address] Lab (1st floor, no room number) Lactic acid whole blood (03/03/2021 9:54 PM CDT) P athologist Signature Lactic Acid 1.4 0.7 - 2.0 03/03/2021 [facility] mmol/L 10:03 PM CDT Specimen Anatomical Collection Method / Collection Time Recei karin Time (Source) Location / Volume Laterality Blood STRUCTURE OF RIGHT Venipuncture / 03/03/2021 9:54 02/17 9:59 HAND / Unknown Unknown PM CDT PM CDT Carli HENRY-C LAB - BLOOD ORDERABLES Performing Organization Address City/[facility]/ZIP Code Phon e Number [facility] [place] [address] Care Lab [address] Lab (1st floor, no room number) (ABNORMAL) Sodium (03/03/2021 8:29 PM CDT) P athologist Signature Sodium 128 (L) 133 - 144 03/03/2021 [facility] mmol/L 8:49 PM CDT Specimen Anatomical Collection Method / Collection Time Recei karin Time (Source) Location / Volume Laterality Blood STRUCTURE OF RIGHT Venipuncture / 03/03/2021 8:29 02/17 8:40 HAND / Unknown Unknown PM CDT PM CDT Carli MCGRAWC LAB - BLOOD ORDERABLES Performing Organization Address City/[facility]/ZIP Code Phon e Number [facility] [place] [address] Care Lab [address] Lab (1st floor, no room number) (ABNORMAL) Glucose by meter (03/03/2021 7:49 PM CDT) P athologist Signature GLUCOSE BY 250 (H) 70 - 99 03/03/2021 [facility] METER POCT mg/dL 8:20 PM CDT POC Specimen Anatomical Collection Method Collection Time Receive d Time (Source) Location / / Volume Laterality Blood BLOOD SPECIMEN / 03/03/2021 7:49 PM 03/03 8:20 Unknown CDT PM CDT Sandeep Nunez DO LAB - BEAKER POCT Performing Organization Address City/[facility]/ZIP Code Phon e Number [facility] [address] Care Lab [address] Lab (1st floor, no room number) (ABNORMAL) Glucose by meter (03/03/2021 5:54 PM CDT) P athologist Signature GLUCOSE BY 131 (H) 70 - 99 03/03/2021 [facility] METER POCT mg/dL 6:08 PM CDT POC Specimen Anatomical Collection Method Collection Time Receive d Time (Source) Location / / Volume Laterality Blood BLOOD SPECIMEN / 03/03/2021 5:54 PM 03/03 6:08 Unknown CDT PM CDT Sandeep Nunez DO LAB - BEAKER POCT Performing Organization Address City/State/ZIP Code Phon e Number [facility] [place] [address] Care Lab [address] Lab (1st floor, no room number) (ABNORMAL) Sodium (03/03/2021 3:47 PM CDT) athologist Signature Sodium 127 (L) 133 - 144 03/03/2021 [facility] mmol/L 4:14 PM CDT Specimen Anatomical Collection Method / Collection Time Recei karin Time (Source) Location / Volume Laterality Blood STRUCTURE OF RIGHT Venipuncture / 03/03/2021 3:47 02/17 3:53 HAND / Unknown Unknown PM CDT PM CDT Carli Holder PA-C LAB - BLOOD ORDERABLES Performing Organization Address [facility]/ZIP Code Phon e Number [facility] [place] [phone] Care Lab [address] Lab (1st floor, no room number) (ABNORMAL) Hemoglobin A1c (03/03/2021 3:47 PM CDT) Analysis Performed At Patho logist Time Signature Hemoglobin A1C 8.1 (H) 0.0 - 5.6 03/03/2021 [facility] % 4:33 PM CDT Comment: Normal <5.7% Prediabetes 5.7-6.4% ?? Diabetes 6.5% or higher Note: Adopted from ADA consensus guideli paul. Specimen Anatomical Collection Method / Collection Time Recei karin Time (Source) Location / Volume Laterality Blood STRUCTURE OF RIGHT Venipuncture / 03/03/2021 3:47 02/17 3:53 HAND / Unknown Unknown PM CDT PM CDT Carli Vogel Glory HENRY-C LAB - BLOOD ORDERABLES Performing Organization Address City/State/ZIP Code Phon e Number [place] [address] Care Lab [address] Lab (1st floor, no room number) (ABNORMAL) Lactic acid whole blood (03/03/2021 3:47 PM CDT) P athologist Signature Lactic Acid 2.2 (H) 0.7 - 2.0 03/03/2021 LABORATORY mmol/L 3:55 PM CDT Specimen Anatomical Collection Method / Collection Time Recei karin Time (Source) Location / Volume Laterality Blood STRUCTURE OF RIGHT Venipuncture / 03/03/2021 3:47 02/17 3:53 HAND / Unknown Unknown PM CDT PM CDT Carli Vogel Glory [facility]ENRY-C LAB - BLOOD ORDERABLES Performing Organization Address City/[facility]/[place] [phone] Care Lab [address] Lab (1st floor, no room number) MR Brain w/o & w Contrast (03/03/2021 1:50 PM CDT) Anatomical Region Laterality Modality Head, SUBRAD MR NEURO, UMP MR NEURO, RAD MR Magnetic Resonance Specimen (Source) Anatomical Location Collection Method / Collectio n Time Received Time / Laterality Volume Impressions 03/03/2021 2:42 PM CDT IMPRESSION: 1. No evidence for intracranial hemorrha ge, acute infarct, or any focal mass lesions. 2. Cerebral atrophy with minimal scatter ed white matters signal hyperintensities. The latter are nonspec ific, but most likely due to chronic small vessel ischemic disease. JUAN LEAL MD SYSTEM ID: ??DLOES Narrative 03/03/2021 2:42 PM CDT MRI BRAIN WITHOUT AND WITH CONTRAST ??03/03/2021 1:50 PM HISTORY: ??Neurological deficit, acute, stroke suspected. Weakness that began last night most pronounced in the right arm. TECHNIQUE: Multiplanar, multisequence MR I of the brain without and with 13.5 mL Gadavist. COMPARISON: None. FINDINGS: Diffusion-weighted images are normal. There is no evidence for intracranial hemorrhage or acute inf arct. Mild cerebral atrophy is present. Minimal patchy white matter joel nges are seen in both hemispheres without mass effect. Postcon trast images do not show any abnormal areas of enhancement or any foc al mass lesions. Procedure Note Juan Leal MD - 03/03/2021Form atting of this note might be different from the original. MRI BRAIN WITHOUT AND WITH CONTRAST 02/17 1:50 PM HISTORY: Neurological deficit, acute, st roke suspected. Weakness that began last night most pronounced in the right arm. TECHNIQUE: Multiplanar, multisequence MR I of the brain without and with 13.5 mL Gadavist. COMPARISON: None. FINDINGS: Diffusion-weighted images are normal. There is no evidence for intracranial hemorrhage or acute inf arct. Mild cerebral atrophy is present. Minimal patchy white matter joel nges are seen in both hemispheres without mass effect. Postcon trast images do not show any abnormal areas of enhancement or any foc al mass lesions. IMPRESSION: 1. No evidence for intracranial hemorrha ge, acute infarct, or any focal mass lesions. 2. Cerebral atrophy with minimal scatter ed white matters signal hyperintensities. The latter are nonspec ific, but most likely due to chronic small vessel ischemic disease. JUAN LEAL MD SYSTEM ID: DLOES Deandre Alvarez MD IM MRI ORDERABLES Asymptomatic COVID-19 Virus (Coronavirus) by PCR Nasopharyngeal (03/03/2021 11:39 AM CDT) Analysis Performed At Patho logist Time Signature SARS CoV2 PCR Negative Negative 03/03/2021 LABORATORY 12:14 PM CDT Comment: NEGATIVE: SARS-CoV-2 (COVID-19) RNA not detected, presumed negative. Specimen Anatomical Location / Collection Method Collection Carter e Received Time (Source) Laterality / Volume Swab NASOPHARYNGEAL Non-blood 03/03/2021 11:39 STRUCTURE / Unknown Collection / AM CDT 11:40 AM CDT Unknown Narrative LABORATORY - 03/03/2021 12:14 PM CDT Testing was performed using the octavia?? SARS-CoV-2 & Influenza A/B Assay on the octavia?? Niki?? System. ??This test shoul d be ordered for the detection of SARS-COV-2 in individuals who meet SARS-CoV-2 clini tracee and/or epidemiological criteria. Test performance is unknown in asymptomatic p atients. ??This test is for in vitro diagnostic use under the FDA EUA for lab oratories certified under CLIA to perform moderate and/or high complexity testing. This test has not been FDA cleared or approved. ??A negative test does not rul e out the presence of PCR inhibitors in the specimen or target RNA in concentration below the limit of detection for the assay. The possibility of a false negative shou ld be considered if the patient's recent exposure or clinical presentation sugges ts COVID-19. ??[facility] are certified under the Clinical Laborat ory Improvement Amendments of 1988 (CLIA-88) as qualified to perform moderate and/or high complexity laboratory testing. Deandre Alavrez MD LAB - MICRO GENERAL ORDERABL ES Performing Organization Address City/State/ZIP Code Phon e Number [place] [phone] Care Lab [address] [facility] Lab (1st floor, no room number) (ABNORMAL) UA with Microscopic reflex to Culture (03/03/2021 11:03 AM CDT) [facility] Method Time Signature Color Urine Light Colorless, 03/03/2021 LABORATORY Yellow Straw, 11:28 AM Light CDT Yellow, Yellow Appearance Urine Clear Clear 03/03/2021 LABORATOR Y 11:28 AM CDT Glucose Urine 150 (A) Negative 03/03/2021 LABORATORY mg/dL 11:28 AM CDT Bilirubin Urine Negative Negative 03/03/2021 LABORATORY 11:28 AM CDT Ketones Urine Negative Negative 03/03/2021 LABORATORY mg/dL 11:28 AM CDT Specific [place] 1.017 1.003 - 03/03/2021 LABORATOR Y Urine 1.035 11:28 AM CDT Blood Urine Negative Negative 03/03/2021 LABORATORY 11:28 AM CDT pH Urine 5.5 5.0 - 7.0 03/03/2021 LABORATORY 11:28 AM CDT Protein Albumin Negative Negative 03/03/2021 LABORATORY Urine mg/dL 11:28 AM CDT Urobilinogen Normal Normal, 2.0 03/03/2021 LABORATORY Urine mg/dL 11:28 AM CDT Nitrite Urine Negative Negative 03/03/2021 LABORATORY 11:28 AM CDT Leukocyte Negative Negative 03/03/2021 LABORATORY Esterase Urine 11:28 AM CDT Mucus Urine Present (A) None Seen 03/03/2021 LABORATORY /LPF 11:28 AM CDT Uric Acid Few (A) None Seen 03/03/2021 LABORATORY Crystals Urine /HPF 11:28 AM CDT RBC Urine 1 <=2 /HPF 03/03/2021 LABORATORY 11:28 AM CDT WBC Urine 1 <=5 /HPF 03/03/2021 LABORATORY 11:28 AM CDT Squamous <1 <=1 /HPF 03/03/2021 LABORATORY Epithelials 11:28 AM Urine CDT Hyaline Casts 1 <=2 /LPF 03/03/2021 LABORATORY Urine 11:28 AM CDT Specimen Anatomical Collection Method Collection Time Receive d Time (Source) Location / / Volume Laterality Urine MID-STREAM URINE Non-blood 03/03/2021 11:03 021 SAMPLE / Unknown Collection / AM CDT 11:10 AM CD T Unknown Narrative LABORATORY - 03/03/2021 11:28 AM CDT Urine Culture not indicated Deandre Alvarez MD LAB - URINE ORDERABLES Performing Organization Address City/State/ZIP Code Phon e Number [place] [phone] Care Lab [address] Lab (1st floor, no room number) CT Head Perfusion w Contrast (03/03/2021 10:19 AM CDT) Anatomical Region Laterality Modality Head, SUBRAD CT NEURO, SUBRAD CT NEURO, UMP CT NEURO Computed Tomography Specimen (Source) Anatomical Location Collection Method / Collectio n Time Received Time / Laterality Volume Impressions 03/03/2021 11:19 AM CDT IMPRESSION: Questionable perfusion abnormality in the anterior temporal lobe. If clinically indicated, MRI might be helpful in further evaluation. JUAN LEAL MD SYSTEM ID: ??DLOES Narrative 03/03/2021 11:[address] HEAD PERFUSION WITH CONTRAST 03/03/2021 10:19 AM HISTORY: Neurological deficit, acute, st roke suspected. Right arm weakness. TECHNIQUE: Axial images were obtained th rough the brain with intravenous contrast for CT brain perfus ion imaging. Radiation dose for this scan was reduced using automate d exposure control, adjustment of the mA and/or kV according to patient size, or iterative reconstruction technique. FINDINGS: Cerebral blood flow, cerebral blood volume, and mean transit time maps show some possible perfusion a bnormality in the anterior left temporal lobe. This is not a defini tive finding. This could just be artifactual. Perfusion images otherwi se symmetric. Procedure Note Juan Leal MD - 03/03/2021Form atting of this note might be different from the original. CT HEAD PERFUSION WITH CONTRAST 03/03/20 10:19 AM HISTORY: Neurological deficit, acute, st roke suspected. Right arm weakness. TECHNIQUE: Axial images were obtained th rough the brain with intravenous contrast for CT brain perfus ion imaging. Radiation dose for this scan was reduced using automate d exposure control, adjustment of the mA and/or kV according to patient size, or iterative reconstruction technique. FINDINGS: Cerebral blood flow, cerebral blood volume, and mean transit time maps show some possible perfusion a bnormality in the anterior left temporal lobe. This is not a defini tive finding. This could just be artifactual. Perfusion images otherwi se symmetric. IMPRESSION: Questionable perfusion abnor mality in the anterior temporal lobe. If clinically indicated, MRI might be helpful in further evaluation. JUAN LEAL MD SYSTEM ID: DLOES Deandre Alvarez MD IMG CT ORDERABLES CTA Head Neck with Contrast (03/03/2021 10:16 AM CDT) Anatomical Region Laterality Modality Head, SUBRAD CT NEURO, SUBRAD CT NEURO, UMP CT NEURO, Computed Tomography RAD CT Specimen (Source) Anatomical Location Collection Method / Collectio n Time Received Time / Laterality Volume Impressions 03/03/2021 2:43 PM CDT IMPRESSION: 1. Mild atherosclerotic disease involvin g several vessels without any significant stenosis. 2. No evidence for significant stenosis, dissection, thromboembolism, or aneurysm. JUAN LEAL MD SYSTEM ID: ??DLOES Narrative 03/03/2021 2:43 PM CDT CTA ??HEAD/NECK WITH CONTRAST March 03, 2021 10:16 AM HISTORY: Neuro deficit, acute, stroke salgado spected. Right arm weakness. Code stroke. TECHNIQUE: Axial images were obtained th rough the head and neck with intravenous contrast. 70 mL of Isovue-37 0 was given. Multiplanar reconstructions were performed. 3-D damien nstructions off a remote workstation for CT angiography were also acquired. Radiation dose for this scan was reduced using automated ex posure control, adjustment of the mA and/or kV according to patient si ze, or iterative reconstruction technique. Carotid stenos is were evaluated by comparing the caliber of the proximal internal car otid arteries to the caliber of the distal internal carotid arteries. FINDINGS: Brachiocephalic vessels: Normal. Right carotid system: Mild calcific plaq ue is seen in the carotid bifurcation region. There is no signific ant stenosis or dissection. Left carotid system: Normal. Right vertebral artery: Normal. Left vertebral artery: There is some min imal distal calcific plaque. There is no stenosis or dissection. [place]: There is some mild tracee cific plaque in the carotid siphon regions bilaterally without steno sis. The basilar artery is patent. The proximal anterior, middle, a nd posterior cerebral arteries are patent. There is no evidence for thr omboembolism or aneurysm. Procedure Note Juan Leal MD - 03/03/2021Form atting of this note might be different from the original. CTA HEAD/NECK WITH CONTRAST March 03, 2021 10:16 AM HISTORY: Neuro deficit, acute, stroke salgado spected. Right arm weakness. Code stroke. TECHNIQUE: Axial images were obtained th rough the head and neck with intravenous contrast. 70 mL of Isovue-37 0 was given. Multiplanar reconstructions were performed. 3-D damien nstructions off a remote workstation for CT angiography were also acquired. Radiation dose for this scan was reduced using automated ex posure control, adjustment of the mA and/or kV according to patient si ze, or iterative reconstruction technique. Carotid stenos is were evaluated by comparing the caliber of the proximal internal car otid arteries to the caliber of the distal internal carotid arteries. FINDINGS: Brachiocephalic vessels: Normal. Right carotid system: Mild calcific plaq ue is seen in the carotid bifurcation region. There is no signific ant stenosis or dissection. Left carotid system: Normal. Right vertebral artery: Normal. Left vertebral artery: There is some min imal distal calcific plaque. There is no stenosis or dissection. [place]: There is some mild tracee cific plaque in the carotid siphon regions bilaterally without steno sis. The basilar artery is patent. The proximal anterior, middle, a nd posterior cerebral arteries are patent. There is no evidence for thr omboembolism or aneurysm. IMPRESSION: 1. Mild atherosclerotic disease involvin g several vessels without any significant stenosis. 2. No evidence for significant stenosis, dissection, thromboembolism, or aneurysm. JUAN LEAL MD SYSTEM ID: DLOES Deandre Alvarez MD IMG CT ORDERABLES CT Head w/o Contrast (03/03/2021 10:13 AM CDT) Anatomical Region Laterality Modality Head, SUBRAD CT NEURO, SUBRAD CT NEURO, UMP CT NEURO, Computed Tomography RAD CT Specimen (Source) Anatomical Location Collection Method / Collectio n Time Received Time / Laterality Volume Impressions 03/03/2021 10:19 AM CDT IMPRESSION: Chronic changes. No evidence for intracranial hemorrhage or any acute process. JUAN LEAL MD SYSTEM ID: ??DLOES Narrative 03/03/2021 10:[address] SCAN OF THE HEAD WITHOUT CONTRAST ?? 03/03/2021 10:13 AM HISTORY: Neurological deficit, acute, st roke suspected. Right arm weakness. TECHNIQUE: Axial images of the head and coronal reformations without IV contrast material. Radiation dose for this scan was reduced using automated exposure control, adjustment o f the mA and/or kV according to patient size, or iterative reconstruc tion technique. COMPARISON: None. FINDINGS: Mild to moderate cerebral atro phy is present. There are some patchy white matter changes in both matt spheres without mass effect. There is no evidence for intracranial he morrhage, mass effect, acute infarct, or skull fracture. Visualized p aranasal sinuses and mastoid air cells are clear. Procedure Note Juan Leal MD - 03/03/2021Form atting of this note might be different from the original. CT SCAN OF THE HEAD WITHOUT CONTRAST 10:13 AM HISTORY: Neurological deficit, acute, st roke suspected. Right arm weakness. TECHNIQUE: Axial images of the head and coronal reformations without IV contrast material. Radiation dose for this scan was reduced using automated exposure control, adjustment o f the mA and/or kV according to patient size, or iterative reconstruc tion technique. COMPARISON: None. FINDINGS: Mild to moderate cerebral atro phy is present. There are some patchy white matter changes in both matt spheres without mass effect. There is no evidence for intracranial he morrhage, mass effect, acute infarct, or skull fracture. Visualized p aranasal sinuses and mastoid air cells are clear. IMPRESSION: Chronic changes. No evidence for intracranial hemorrhage or any acute process. JUAN LEAL MD SYSTEM ID: DLOES Deandre Alvarez MD IMG CT ORDERABLES EKG 12-lead, tracing only (03/03/2021 9:58 AM CDT) Component Value Ref Range Test Analysis Performed Pathologis t Method Time At Signature Systolic Blood mmHg RADIOLOGY Pressure RESULTS Diastolic Blood mmHg RADIOLOGY Pressure RESULTS Ventricular Rate 83 BPM RADIOLOGY RESULTS Atrial Rate 83 BPM RADIOLOGY RESULTS WI Interval 246 ms RADIOLOGY RESULTS QRS Duration 122 ms RADIOLOGY RESULTS QT 394 ms RADIOLOGY RESULTS QTc 462 ms RADIOLOGY RESULTS P [place] 69 degrees RADIOLOGY RESULTS R AXIS -72 degrees RADIOLOGY RESULTS T [place] 19 degrees RADIOLOGY RESULTS Interpretation Sinus rhythm with 1st degree A-V block with occasional Premature ventricular complexes RADIOLOGY ECG Left anterior fascicular block RESULTS Abnormal ECG No previous ECGs available Specimen Anatomical Collection Method Collection Time Receive d Time (Source) Location / / Volume Laterality 03/03/2021 9:58 AM CDT 11:32 PM CDT Deandre Alvarez MD ECG ORDERABLES Performing Organization Address City/State/ZIP Code Phon e Number RADIOLOGY RESULTS (ABNORMAL) Lipid Profile (03/03/2021 9:58 AM CDT) Patholo gist Method Time Signature Cholesterol 152 <200 03/03/2021 [facility] mg/dL 10:52 AM CDT Triglycerides 168 (H) <150 03/03/2021 [facility] mg/dL 10:52 AM CDT Direct Measure 52 >=40 03/03/2021 [facility] HDL mg/dL 10:52 AM CDT LDL Cholesterol 66 <=100 03/03/2021 [facility] Calculated mg/dL 10:52 AM CDT Non HDL 100 <130 03/03/2021 [facility] Cholesterol mg/dL 10:52 AM CDT Specimen Anatomical Collection Method / Collection Time Recei karin Time (Source) Location / Volume Laterality Blood STRUCTURE OF LEFT Venipuncture / 03/03/2021 9:58 03/03 UPPER LIMB / Unknown AM CDT 10:07 AM CDT Unknown Narrative [facility] - 03/03/2021 10:52 AM CDT Cholesterol Desirable: ??<200 mg/dL Triglycerides Normal: ??Less than 150 mg/dL Borderline High: ??150-199 mg/dL High: ??200-499 mg/dL Very High: ??Greater than or equal to 50 0 mg/dL Direct Measure HDL Female: ??Greater than or equal to 50 mg /dL Male: ??Greater than or equal to 40 mg/d L LDL Cholesterol Desirable: ??<100mg/dL Above Desirable: ??100-129 mg/dL Borderline High: ??130-159 mg/dL High: ??160-189 mg/dL Very High: ??>= 190 mg/dL Non HDL Cholesterol Desirable: ??130 mg/dL Above Desirable: ??130-159 mg/dL Borderline High: ??160-189 mg/dL High: ??190-219 mg/dL Very High: ??Greater than or equal to 22 0 mg/dL Deandre Alvarez MD LAB - BLOOD ORDERABLES Performing Organization Address City/State/[place] [phone] Care Lab [address] Lab (1st floor, no room number) (ABNORMAL) CK total (03/03/2021 9:58 AM CDT) P athologist Signature CK 1,145 (HH) 30 - 300 03/03/2021 [facility] U/L 11:25 AM CDT Specimen Anatomical Collection Method / Collection Time Recei karin Time (Source) Location / Volume Laterality Blood STRUCTURE OF LEFT Venipuncture / 03/03/2021 9:58 03/03 UPPER LIMB / Unknown AM CDT 10:07 AM CDT Unknown Deandre Alvarez MD LAB - BLOOD ORDERABLES Performing Organization Address City/State/[place] [phone] Care Lab [address] Lab (1st floor, no room number) Partial thromboplastin time (03/03/2021 9:58 AM CDT) P athologist Signature aPTT 32 22 - 38 03/03/2021 [facility] Seconds 10:36 AM CDT Specimen Anatomical Collection Method / Collection Time Recei karin Time (Source) Location / Volume Laterality Blood STRUCTURE OF LEFT Venipuncture / 03/03/2021 9:58 03/03 UPPER LIMB / Unknown AM CDT 10:07 AM CDT Unknown Deandre Alvarez MD LAB - BLOOD ORDERABLES Performing Organization Address City/State/[place] [phone] Care Lab [address] Lab (1st floor, no room number) INR (03/03/2021 9:58 AM CDT) athologist Signature INR 0.94 0.85 - 1.15 03/03/2021 [facility] 10:36 AM CDT Specimen Anatomical Collection Method / Collection Time Recei karin Time (Source) Location / Volume Laterality Blood STRUCTURE OF LEFT Venipuncture / 03/03/2021 9:58 03/03 UPPER LIMB / Unknown AM CDT 10:07 AM CDT Unknown Deandre Alvarez MD LAB - BLOOD ORDERABLES Performing Organization Address City/State/[place] [address] Care Lab [address] Lab (1st floor, no room number) Extra Purple Top Tube (03/03/2021 9:58 AM CDT) P athologist Signature Hold Specimen JIC 03/03/2021 [facility] 11:18 AM CDT Specimen Anatomical Collection Method / Collection Time Recei karin Time (Source) Location / Volume Laterality Blood STRUCTURE OF LEFT Venipuncture / 03/03/2021 9:58 03/03 UPPER LIMB / Unknown AM CDT 10:07 AM CDT Unknown Deandre Alvarez MD LAB - BLOOD ORDERABLES Performing Organization Address City/State/[place] [phone] Care Lab [address] Lab (1st floor, no room number) Extra Green Top ([place] Heparin) Tube (03/03/2021 9:58 AM CDT) athologist Signature Hold Specimen JIC 03/03/2021 [facility] 11:18 AM CDT Specimen Anatomical Collection Method / Collection Time Recei karin Time (Source) Location / Volume Laterality Blood STRUCTURE OF LEFT Venipuncture / 03/03/2021 9:58 03/03 UPPER LIMB / Unknown AM CDT 10:07 AM CDT Unknown Deandre Alvarez MD LAB - BLOOD ORDERABLES Performing Organization Address City/State/[place] [address] Care Lab [address] Lab (1st floor, no room number) Extra Blue Top Tube (03/03/2021 9:58 AM CDT) athologist Signature Hold Specimen JIC 03/03/2021 [facility] 11:18 AM CDT Specimen Anatomical Collection Method / Collection Time Recei karin Time (Source) Location / Volume Laterality Blood STRUCTURE OF LEFT Venipuncture / 03/03/2021 9:58 03/03 UPPER LIMB / Unknown AM CDT 10:07 AM CDT Unknown Deandre Alvarez MD LAB - BLOOD ORDERABLES Performing Organization Address City/State/[place] [phone] Care Lab [address] Lab (1st floor, no room number) (ABNORMAL) CBC with platelets and differential (03/03/2021 9:58 AM CDT) [facility] Method Time Signature WBC Count 13.3 (H) 4.0 - 03/03/2021 [facility] 11.0 10:13 AM CDT 10e3/uL RBC Count 4.43 4.40 - 03/03/2021 [facility] 5.90 10:13 AM CDT 10e6/uL Hemoglobin 12.4 (L) 13.3 - 03/03/2021 [facility] 17.7 g/dL 10:13 AM CDT Hematocrit 38.3 (L) 40.0 - 03/03/2021 [facility] 53.0 % 10:13 AM CDT MCV 87 78 - 100 03/03/2021 [facility] fL 10:13 AM CDT MCH 28.0 26.5 - 03/03/2021 [facility] 33.0 pg 10:13 AM CDT MCHC 32.4 31.5 - 03/03/2021 [facility] 36.5 g/dL 10:13 AM CDT RDW 12.7 10.0 - 03/03/2021 [facility] 15.0 % 10:13 AM CDT Platelet Count 283 150 - 450 03/03/2021 [facility] 10e3/uL 10:13 AM CDT % Neutrophils 79 % 03/03/2021 [facility] 10:13 AM CDT % Lymphocytes 11 % 03/03/2021 [facility] 10:13 AM CDT % Monocytes 7 % 03/03/2021 [facility] 10:13 AM CDT % Eosinophils 1 % 03/03/2021 [facility] 10:13 AM CDT % Basophils 1 % 03/03/2021 [facility] 10:13 AM CDT % Immature 1 % 03/03/2021 [facility] Granulocytes 10:13 AM CDT NRBCs per 100 0 <1 /100 03/03/2021 [facility] WBC 10:13 AM CDT Absolute 10.7 (H) 1.6 - 8.3 03/03/2021 [facility] Neutrophils 10e3/uL 10:13 AM CDT Absolute 1.4 0.8 - 5.3 03/03/2021 [facility] Lymphocytes 10e3/uL 10:13 AM CDT Absolute 1.0 0.0 - 1.3 03/03/2021 [facility] Monocytes 10e3/uL 10:13 AM CDT Absolute 0.1 0.0 - 0.7 03/03/2021 [facility] Eosinophils 10e3/uL 10:13 AM CDT Absolute 0.1 0.0 - 0.2 03/03/2021 [facility] Basophils 10e3/uL 10:13 AM CDT Absolute 0.1 (H) <=0.0 03/03/2021 [facility] Immature 10e3/uL 10:13 AM CDT Granulocytes Absolute NRBCs 0.0 10e3/uL 03/03/2021 [facility] 10:13 AM CDT Specimen Anatomical Collection Method / Collection Time Recei karin Time (Source) Location / Volume Laterality Blood STRUCTURE OF LEFT Venipuncture / 03/03/2021 9:58 03/03 UPPER LIMB / Unknown AM CDT 10:07 AM CDT Unknown Deandre Alvarez MD LAB - BLOOD ORDERABLES Performing Organization Address City/[facility]/ZIP Code Phon e Number [place] [address] Care [facility] [address] Lab (1st floor, no room number) Ethyl Alcohol Level (03/03/2021 9:58 AM CDT) athologist Signature Alcohol ethyl <0.01 <=0.01 g/dL 03/03/2021 [facility] 10:36 AM CDT Specimen Anatomical Collection Method / Collection Time Recei karin Time (Source) Location / Volume Laterality Blood STRUCTURE OF LEFT Venipuncture / 03/03/2021 9:58 03/03 UPPER LIMB / Unknown AM CDT 10:07 AM CDT Unknown Deandre Alvarez MD LAB - BLOOD ORDERABLES Performing Organization Address City/[facility]/ZIP Code Phon e [place] [address] Care Lab [address] Lab (1st floor, no room number) Troponin I (03/03/2021 9:58 AM CDT) athologist Signature Troponin I <0.015 0.000 - 03/03/2021 [facility] 0.045 ug/L 10:40 AM CDT Comment: The 99th percentile for upper r eference range is 0.045ug/L. Troponin values in the range of 0.045 - 0.120 ug/L may b e associated with risks of adverse clinical events. Specimen Anatomical Collection Method / Collection Time Recei karin Time (Source) Location / Volume Laterality Blood STRUCTURE OF LEFT Venipuncture / 03/03/2021 9:58 03/03 UPPER LIMB / Unknown AM CDT 10:07 AM CDT Unknown Deandre Alvarez MD LAB - BLOOD ORDERABLES Performing Organization Address City/[facility]/ZIP Code Phon e [place] [address] Care Lab [address] Lab (1st floor, no room number) Lipase (03/03/2021 9:58 AM CDT) P athologist Signature Lipase 101 73 - 393 U/L 03/03/2021 [facility] 10:36 AM CDT Specimen Anatomical Collection Method / Collection Time Recei karin Time (Source) Location / Volume Laterality Blood STRUCTURE OF LEFT Venipuncture / 03/03/2021 9:58 03/03 UPPER LIMB / Unknown AM CDT 10:07 AM CDT Unknown Deandre Alvarez MD LAB - BLOOD ORDERABLES Performing Organization Address City/[facility]/ZIP Code Phon e [place] [address] Care Lab [address] Lab (1st floor, no room number) (ABNORMAL) Comprehensive metabolic panel (03/03/2021 9:58 AM CDT) Patholo gist Method Time Signature Sodium 126 (L) 133 - 144 03/03/2021 [facility] mmol/L 10:36 AM CDT Potassium 4.7 3.4 - 5.3 03/03/2021 [facility] mmol/L 10:36 AM CDT Chloride 92 (L) 94 - 109 03/03/2021 [facility] mmol/L 10:36 AM CDT Carbon Dioxide 25 20 - 32 03/03/2021 [facility] (CO2) mmol/L 10:36 AM CDT Anion Gap 9 3 - 14 03/03/2021 [facility] mmol/L 10:36 AM CDT Urea Nitrogen 11 7 - 30 03/03/2021 [facility] mg/dL 10:36 AM CDT Creatinine 0.95 0.66 - 03/03/2021 [facility] 1.25 mg/dL 10:36 AM CDT Calcium 8.8 8.5 - 10.1 03/03/2021 [facility] mg/dL 10:36 AM CDT Glucose 180 (H) 70 - 99 03/03/2021 [facility] mg/dL 10:36 AM CDT Alkaline 60 40 - 150 03/03/2021 [facility] Phosphatase U/L 10:36 AM CDT AST 38 0 - 45 U/L 03/03/2021 [facility] 10:36 AM CDT ALT 32 0 - 70 U/L 03/03/2021 [facility] 10:36 AM CDT Protein Total 7.6 6.8 - 8.8 03/03/2021 [facility] g/dL 10:36 AM CDT Albumin 4.0 3.4 - 5.0 03/03/2021 [facility] g/dL 10:36 AM CDT Bilirubin Total 0.4 0.2 - 1.3 03/03/2021 [facility] mg/dL 10:36 AM CDT GFR Estimate 83 >60 03/03/2021 [facility] mL/min/1.7 10:36 AM CDT 3m2 Comment: As of November 27, 2020, eGFR is ca lculated by the CKD-EPI creatinine equation, without race adjustment. eGFR can be inf luenced by muscle mass, exercise, and diet. The reported eGFR is an estimation only and is only applicable if the renal function is stable. Specimen Anatomical Collection Method / Collection Time Recei karin Time (Source) Location / Volume Laterality Blood STRUCTURE OF LEFT Venipuncture / 03/03/2021 9:58 03/03 UPPER LIMB / Unknown AM CDT 10:07 AM CDT Unknown Deandre Alvarez MD LAB - BLOOD ORDERABLES Performing Organization Address City/State/ZIP Code Phon e Number [place] [id number] Care [facility] [address] Lab (1st floor, no room number) (ABNORMAL) Glucose by meter (03/03/2021 9:48 AM CDT) P athologist Signature GLUCOSE BY 178 (H) 70 - 99 03/03/2021 [facility] METER POCT mg/dL 9:55 AM CDT POC Comment: /RN Notified Specimen Anatomical Collection Method Collection Time Receive d Time (Source) Location / / Volume Laterality Blood BLOOD SPECIMEN / 03/03/2021 9:48 AM 03/03 9:55 Unknown CDT AM CDT Deandre Alvarez MD LAB - ENED[facility] MERRIT[facility] Performing Organization Address City/State/ZIP Code [place] [address] Care Lab [address] Lab (1st floor, no room number) documented in this encounter Visit Diagnoses Diagnosis 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) - Primary Acute right-sided weakness Hemiplegia, unspecified, affecting unspe cified side JUSTIN (generalized anxiety disorder) Generalized anxiety disorder Essential hypertension Unspecified essential hypertension documented in this encounter Admitting Diagnoses Diagnosis Acute right-sided weakness Hemiplegia, unspecified, affecting unspe cified side documented in this encounter Administered Medications Inactive Administered Medications - up to 3 most recent administrations Medication Order MAR Action Action Date Dose Rate Site 0.9% sodium chloride BOLUS New Bag 03/03/2021 12:15 PM 1,000 mLs 1000 mL/hr Intravenous, 1,000 mL, CDT ONCE, at 1,000 mL/hr, Administer over 1 Hours, On Sat03/03/21 at 1210, For 1 dose acetaminophen (TYLENOL) solution 650 mg Given 03/06/2021 1:56 AM CDT 650 mg 650 mg, Oral, EVERY 4 HOURS PRN, mild pain, fever, Starting on Sat03/05/21 at 1749, Maximum acetaminophen dose from all sources= 75 mg/kg/day not to exceed 4 grams/day. Given 03/05/2021 6:05 PM CDT 650 mg allopurinol (ZYLOPRIM) tablet 300 mg Given 03/06/2021 8:01 AM CDT 300 mg 300 mg, Oral, DAILY, First dose on Sat03/03/21 at 1600 Given 03/05/2021 8:56 AM CDT 300 mg Given 03/04/2021 8:05 AM CDT 300 mg aspirin (ASA) chewable tablet 81 mg Given 03/06/2021 8:01 AM CDT 81 mg 81 mg, Oral, DAILY, First dose on Sat03/04/21 at 0900 Given 03/05/2021 8:56 AM CDT 81 mg Given 03/04/2021 8:06 AM CDT 81 mg aspirin (ASA) tablet 325 mg Given 03/03/2021 11:21 AM CDT 325 mg 325 mg, Oral, ONCE, On Sat03/03/21 at 1105, For [address] Scan Flush Given 03/03/2021 10:08 AM CDT 96 mLs Intravenous, 100 mL, ONCE, On Sat03/03/21 at 1005, For 1 dose, This entry is for use by Radiology to intermittently used as a flush in patients receiving a CT scan. dextrose 50 % injection 25-50 mL 25-50 mL, Intravenous, EVERY 15 MIN PRN, low blood sug ar, Administer over 1-5 Minutes, Starting on Sat03/03/21 at 153 8, Use if have IV access, BG less than 70 mg/dL and meet dose criteria below: Dose if conscious and alert (or disorientated) and NPO = 25 mL Dose if unconscious / no t alert = 50 mL Give first dose for initial blood glucose less than 70 mg/dL. If blood glucose at 15 minute recheck is less than or equal to 100 mg/dL continue to a dminister carbohydrate treatment every 15 minutes, as needed, based on blood gluco se and assessment parameters until blood glucose level is above 100 mg/dL. Vesicant. diazepam (VALIUM) tablet 5 mg Given 03/06/2021 11:22 AM CDT 5 mg 5 mg, Oral, ONCE, On Sat03/06/21 at 1100, For 1 dose, Take 1/2 hour prior to MRI gabapentin (NEURONTIN) capsule 300 mg Given 03/06/2021 8:01 AM CDT 300 mg 300 mg, Oral, 3 TIMES DAILY, First dose on Sat03/03/21 at 2000 Given 03/05/2021 9:36 PM CDT 300 mg Given 03/05/2021 5:33 PM CDT 300 mg gadobutrol (GADAVIST) injection 15 mL Given 03/03/2021 1:39 PM CDT 13.5 mLs 15 mL, Intravenous, ONCE, On Sat03/03/21 at 1310, For 1 dose gadobutrol (GADAVIST) injection 15 mL Given 03/06/2021 1:00 PM CDT 14 mLs 15 mL, Intravenous, ONCE, On Sat03/06/21 at 1300, For 1 dose glucagon injection 1 mg 1 mg, Subcutaneous, EVERY 15 MIN PRN, low blood sugar, May repeat x 1 only, Starting on Sat03/03/21 at 1538, May gi ve SQ or IM. ONLY use glucagon IF patient has NO IV access AND is UNABLE to swallo w AND blood glucose is LESS than or EQUAL to 50 mg/dL. glucose gel 15-30 g 15-30 g, Oral, EVERY 15 MIN PRN, low blo od sugar, Starting on Sat03/03/21 at 1538, Give first dose for initial blood glucose less than 70 mg/dL per the dosing instructions below. If blood glucose at 15 minute rechecks is still less than or equal to 100 mg/dL, continue to administ er doses per blood glucose parameters every 15 minutes, as needed, until blood glucose level is ab ove 100 mg/dL. Dosing Instructions: ~If patient is conscious a nd able to swallow and NO enteral tube For initial BG 51-69mg/dL OR 15 minute reche ck BG 51- 100 mg/dL - give 15 g For BG less than or equal to 50 mg/dL - give 30 g ~ If Enteral tube For initial BG 51-69mg/dL OR 15 minute recheck BG 51- 100 mg/dL - give apple juice 120 mL (4 oz or 15 g of CHO) via enteral tube For BG less than o r equal to 50 mg/dL - Give apple juice 240 mL (8 oz or 30 g of CHO) via enteral tub e ~Oral gel is preferable for conscious and able to swallow patient. ~IF gel unavail able or patient refuses may provide apple juice per Enteral tube dosing instructio ns. Document juice on I and O flowsheet. insulin aspart (NovoLOG) injection (RAPID Given 03/06/2021 8:02 AM CDT 1 Units ACTING) 1-7 Units, Subcutaneous, 3 TIMES DAILY BEFORE MEALS, First dose on Sat03/03/21 at 1700, Correction Scale - MEDIUM INSULIN RESISTANCE DOSING Do Not give Correction Insulin if Pre-Meal BG less than 140. For Pre-Meal BG 140 - 189 give 1 unit. For Pre-Meal BG 190 - 239 give 2 units. For Pre-Meal BG 240 - 289 give 3 units. For Pre-Meal BG 290 - 339 give 4 units. For Pre-Meal BG 340- 399 give 5 units. For Pre-Meal BG 400-449 give 6 units For Pre-Meal BG greater than or equal to 450 give 7 units. To be given with prandial insulin, and based on pre-meal blood glucose. Notify provider if glucose greater than or equal to 350 mg/dL after administration of correction dose. If given at mealtime, administer within 30 minutes of start of meal Given 03/05/2021 5:45 PM CDT 1 Units Given 03/05/2021 7:22 AM CDT 1 Units insulin aspart (NovoLOG) injection (RAPID Given 03/03/2021 8:42 PM CDT 2 Units ACTING) 1-5 Units, Subcutaneous, AT BEDTIME, First dose on Sat03/03/21 at 2000, MEDIUM INSULIN RESISTANCE DOSING Do Not give Bedtime Correction Insulin if BG less than 200. For BG 200 - 249 give 1 units. For BG 250 - 299 give 2 units. For BG 300 - 349 give 3 units. For BG 350 -399 give 4 units. For BG greater than or equal to 400 give 5 units. Notify provider if glucose greater than or equal to 350 mg/dL after administration of correction dose. If given at mealtime, administer within 30 minutes of start of meal iopamidol (ISOVUE-370) solution 500 mL Given 03/03/2021 10:07 AM CDT 120 mLs 500 mL, Intravenous, ONCE, On Sat03/03/21 at 1005, For 1 dose lisinopril (ZESTRIL) tablet 20 mg Given 03/06/2021 8:01 AM CDT 20 mg 20 mg, Oral, DAILY, First dose on Sat03/03/21 at 1600 Given 03/05/2021 8:56 AM CDT 20 mg Given 03/04/2021 8:06 AM CDT 20 mg LORazepam (ATIVAN) tablet 0.5 mg 0.5 mg, Oral, EVERY 4 HOURS PRN, anxiety, Starting on Sat03/03/21 at 1910 meloxicam (MOBIC) tablet 15 mg Given 03/06/2021 8:01 AM CDT 15 mg 15 mg, Oral, DAILY, First dose on Sat03/03/21 at 1600 Given 03/05/2021 8:56 AM CDT 15 mg Given 03/04/2021 8:05 AM CDT 15 mg metFORMIN (GLUCOPHAGE) tablet 1,000 mg Given 03/06/2021 8:01 AM CDT 1,000 mg 1,000 mg, Oral, 2 TIMES DAILY WITH MEALS, First dose on Sat03/04/21 at 1330, If the patient receives intravenous, iodinated contrast and patient GFR is greater than 60 mL/min/1.7m2, continue metformin. Contact provider for 'hold' or 'no hold' instructions if no GFR or if GFR is less than 60 mL/min/1.7m2. Given 03/05/2021 5:33 PM CDT 1,000 mg Given 03/05/2021 8:56 AM CDT 1,000 mg naloxone (NARCAN) injection 0.2 mg 0.2 mg, Intravenous, EVERY 2 MIN PRN, op ioid reversal, Starting on Sat03/03/21 at 1914, Administer intravenous route when available and notify provider when administered. For unintended sedation or respiratory depression if all of the below criteria are met: ~ respiratory rate LES S than or EQUAL to 8. ~SaO2 less than 92% and or/end-tidal CO2 is greater than 50. ~ the patient is receiving an opioid, has unintended sedations assessed as RASS (-3), and is cur rently not on mechanical ventilation. RASS scale moderate (-3) is movement or eye opening to voice but no eye contact. Patient Monitoring Once the patient has demonstrated a response to the naloxone, continue to monitor respiratory rate, depth, oxygen saturation and end-tidal CO2 (if available) every 15 mi nutes x 2, then every 30 minutes x 2, then every 1 hour x 1 after each naloxone dose. Consider tr ansfer to ICU if patient respiratory parameters have not improved after 4 nalox one doses. naloxone (NARCAN) injection 0.2 mg 0.2 mg, Intramuscular, EVERY 2 MIN PRN, opioid reversal, Starting on Sat03/03/21 at 1914, Administer intramuscular if an intravenous [place] is not available and notify provider when administered. For unintended cade tion or respiratory depression if all of the below criteria are met: ~ respiratory rate LESS than or EQUAL to 8. ~SaO2 less than 92% and or/end-tidal CO2 i s greater than 50. ~ the patient is receiving an opioid, has unin tended sedations assessed as RASS (-3), and is currently not on mechanical ventilati on. RASS scale moderate (-3) is movement or eye opening to voice but no eye contact. Patient Monitoring Once the patient has demonstrated a response to the naloxone, continue to m onitor respiratory rate, depth, oxygen saturation and end-tidal CO2 (if availab le) every 15 minutes x 2, then every 30 minutes x 2, then every 1 hour x 1 after each naloxone dose. Consider transfer to ICU if patient respiratory parameters have not improved after 4 naloxone doses. naloxone (NARCAN) injection 0.4 mg 0.4 mg, Intravenous, EVERY 2 MIN PRN, op ioid reversal, Starting on Sat03/03/21 at 1914, Administer intravenous route when available and notify provider when administered. For unintended sedation or respiratory depression if all of the below criteria are met: ~ respiratory rate LES S than or EQUAL to 8. ~ SaO2 less than 92% and or/end-tidal CO2 is greater than 50. ~ the patient is receiving an opioid, has unintended sedation assessed as RASS (-4 ) or (-5) and patient is currently not on mechanical ventilation. RASS scale (-4) is deep sedation with no response to voice but movement or eye opening to physical stimulation. R ASS scale (-5) is unarousable. Patient Monitoring Once the patient has demonstrated a response to the naloxone, continue to monitor respiratory rate, depth, oxygen saturation and end-tidal CO2 (if available) every 15 mi nutes x 2, then every 30 minutes x 2, then every 1 hour x 1 after each naloxone dose. Consider tr ansfer to ICU if patient respiratory parameters have not improved after 4 nalox one doses. naloxone (NARCAN) injection 0.4 mg 0.4 mg, Intramuscular, EVERY 2 MIN PRN, opioid reversal, Starting on Sat03/03/21 at 1914, Administer intramuscular if an intravenous ro [place] is not available and notify provider when administered. For unintended cade tion or respiratory depression if all of the below criteria are met: ~ respiratory rate LESS than or EQUAL to 8. ~ SaO2 less than 92% and or/end-tidal CO2 is greater than 50. ~ the patient is receiving an opioid, has unin tended sedation assessed as RASS (-4) or (-5) and patient is currently not on mechanical ventil ation. RASS scale (-4) is deep sedation with no response to voice but movement o r eye opening to physical stimulation. RASS scale (-5) is unarousa ble. Patient Monitoring Once the patient has demonstrated a response to the nalox one, continue to monitor respiratory rate, depth, oxygen saturation and end-tidal CO2 (if availab le) every 15 minutes x 2, then every 30 minutes x 2, then every 1 hour x 1 after each naloxone dose. Consider transfer to ICU if patient respiratory parameters have not improved after 4 naloxone doses. omeprazole (priLOSEC) CR capsule 40 mg Given 03/06/2021 8:01 AM CDT 40 mg 40 mg, Oral, DAILY, First dose on Sat03/03/21 at 1600 Given 03/05/2021 8:56 AM CDT 40 mg Given 03/04/2021 8:05 AM CDT 40 mg ondansetron (ZOFRAN) injection 4 mg 4 mg, Intravenous, EVERY 6 HOURS PRN, nausea, vomiting , Administer over 2-5 Minutes, Starting on Sat03/03/21 at 153 8, Give IF patient unable to tolerate oral medication. This is Step 1 of nausea and vomiting kimberly gement. If nausea not resolved in 15 minutes, go to Step 2 prochlorperazine (COMPAZINE). Irritant. ondansetron (ZOFRAN-ODT) ODT tab 4 mg 4 mg, Oral, EVERY 6 HOURS PRN, nausea, v omiting, Starting on Sat03/03/21 at 1538, This is Step 1 of nausea and vomiting management. If n ausea not resolved in 15 minutes, go to Step 2 prochlorperazine ( COMPAZINE). With dry hands, peel back foil backing and gently remove tablet. Do not push oral disintegrating tablet through foil backing. Administer immediately on tongue and ora l disintegrating tablet dissolves in seconds, then swallow with saliva. Liquid not required. oxyCODONE (ROXICODONE) tablet 5 mg Given 03/04/2021 3:56 AM CDT 5 mg 5 mg, Oral, EVERY 6 HOURS PRN, moderate to severe pain, Starting on Sat03/03/21 at 1911 QUEtiapine (SEROquel) tablet 200 mg Given 03/05/2021 9:36 PM CDT 200 mg 200 mg, Oral, AT BEDTIME, First dose on Sat03/03/21 at 2000 Given 03/04/2021 10:11 PM CDT 200 mg Given 03/03/2021 7:44 PM CDT 200 mg senna-docusate (SENOKOT-S/PERICOLACE) 8. 6-50 MG per tablet 1 tablet 1 tablet, Oral, 2 TIMES DAILY PRN, const ipation, Starting on Sat03/03/21 at 1538, If no bowel movement in 24 hours, increa se to 2 tablets by mouth. Hold for loose stools. senna-docusate (SENOKOT-S/PERICOLACE) 8. 6-50 MG per tablet 2 tablet 2 tablet, Oral, 2 TIMES DAILY PRN, const ipation, Starting on Sat03/03/21 at 1538, Hold for loose stools. sertraline (ZOLOFT) tablet 50 mg Given 03/06/2021 8:01 AM CDT 50 mg 50 mg, Oral, DAILY, First dose on Sat03/03/21 at 1600 Given 03/05/2021 8:56 AM CDT 50 mg Given 03/04/2021 8:06 AM CDT 50 mg simvastatin (ZOCOR) tablet 20 mg Given 03/05/2021 5:33 PM CDT 20 mg 20 mg, Oral, DAILY WITH SUPPER, First dose on Sat03/03/21 at 1700 Given 03/04/2021 4:10 PM CDT 20 mg Given 03/03/2021 5:58 PM CDT 20 mg sodium chloride 0.9% infusion New Bag 03/04/2021 4:00 AM CDT 1,000 mLs 100 mL/hr at 100 mL/hr, Intravenous, CONTINUOUS, Starting on Sat03/03/21 at 1600, Until 03/04/21 at 1218 New Bag 03/03/2021 5:56 PM CDT 100 mL/hr tamsulosin (FLOMAX) capsule 0.4 mg Given 03/06/2021 8:01 AM CDT 0.4 mg 0.4 mg, Oral, DAILY, First dose on Sat03/03/21 at 1600, Administer 30 minutes after the same meal each day. Capsules should be swallowed whole; do not crush chew or open. Given 03/05/2021 8:56 AM CDT 0.4 mg Given 03/04/2021 8:06 AM CDT 0.4 mg traMADol (ULTRAM) tablet 50 mg Given 03/04/2021 9:09 AM CDT 50 mg 50 mg, Oral, EVERY 6 HOURS PRN, moderate pain, Starting on 03/04/21 at 0803 traMADol (ULTRAM) tablet 50-100 mg Given 03/06/2021 3:58 PM CDT 100 mg 50-100 mg, Oral, EVERY 6 HOURS PRN, moderate pain, Starting on 03/04/21 at 0953 Given 03/06/2021 6:13 AM CDT 100 mg Given 03/05/2021 6:05 PM CDT 100 mg traZODone (DESYREL) half-tab 75 mg Given 03/05/2021 9:36 PM CDT 75 mg 75 mg, Oral, AT BEDTIME, First dose on Sat03/03/21 at 2000 Given 03/04/2021 10:11 PM CDT 75 mg Given 03/03/2021 7:45 PM CDT 75 mg documented in this encounter Active and Recently Administered Medications Times are shown in CDT. Scheduled Medication Order 03/04/2021 03/05/2021 03/06/2021 allopurinol (ZYLOPRIM) tablet 300 mg 0805 (Given - Provider: Bhavesh Lnyn RN) 0856 (Given - Provider: Bhavesh Lynn RN) 0801 (Given - Provider: Elaine Bonner RN) 300 mg, Oral, DAILY, First dose on Sat03/03/21 at 1600 aspirin (ASA) chewable tablet 81 mg 0806 (Given - Provider: Bhavesh Lynn RN) 0856 (Given - Provider: Bhavesh Lynn RN) 0801 (Given - Provider: Elaine Bonner RN) 81 mg, Oral, DAILY, First dose on 03/04/21 at 0900 diazepam (VALIUM) tablet 5 mg (COMPLETED) 1122 (Given - Provider: Elaine Bonner RN) 5 mg, Oral, ONCE, On 03/06/21 at 110 0, For 1 dose, Take 1/2 hour prior to MRI gabapentin (NEURONTIN) capsule 300 mg 0805 (Given - Pr ovider: Bhavesh Lynn RN)1610 (Given - Provider: Bhavesh Lynn RN)2210 (Given - Provider: Amelia Kiran RN) 0856 (Given - Provider: Bhavesh Lynn RN) 1733 (Given - Provider: Bhavesh Lynn RN)2136 (Given - Provider: Amelia Kiran RN) 0801 (Given - Provider: Elaine Bonner RN)1607 (Not Given - Provider: Sandra Quintana RN - Reason: Patient/family refused) 300 mg, Oral, 3 TIMES DAILY, First dose on Sat03/03/21 at 2000 gadobutrol (GADAVIST) injection 15 mL (COMPLETED) 1300 (Given - Provider: Fernanda Wall) 15 mL, Intravenous, ONCE, On Sat03/06/21 at 1300, For 1 dose insulin aspart (NovoLOG) injection (RAPID ACTING) 0808 (Given - Provider: Bhavesh Lynn RN)1204 (Given - Provider: Bhavesh Lynn RN)1811 (Given - Provider: Bhavesh Lynn RN) 0722 (Given - Provider: Bhavesh Lynn RN - Comment: bg [phone] (Not Given - Provider: Bhavesh Lynn RN - Reason: Order parameters not met - Comment: bg [phone] (Given - Provider: Bhavesh Lynn RN - Comment: bg 143) 0802 (Given - Provider: Elaine Bonner RN - Comment: [phone] (Not Given - Provider: Elaine Bonner RN - Reason: Order parameters not met - Comment: 132) 1-7 Units, Subcutaneous, 3 TIMES DAILY B EFORE MEALS, First dose on Sat03/03/21 at 1700, Correction Scale - MEDIUM INSULIN RESISTANCE DOSING Do Not give Correction Insulin if Pre-Meal BG less than 140. 1700 (Canceled Entry - Provider: Orders Generic Provider - Comment: Automatically canceled at discontinue of medication order) For Pre-Meal BG 140 - 189 give 1 unit. F or Pre-Meal BG 190 - 239 give 2 units. For Pre-Meal BG 240 - 289 give 3 units. For Pre-Meal BG 290 - 339 give 4 units. For Pre-Meal BG 340- 399 give 5 units. For Pre-Meal BG 400-449 give 6 units For Pre -Meal BG greater than or equal to 450 give 7 units. To be given with prandial insulin, and based on pre-meal blood glucose. Notify provider if glucose greater nithin n or equal to 350 mg/dL after administra tion of correction dose. If given at mealtime, administer within 30 minutes of start of meal insulin aspart (NovoLOG) injection (RAPID ACTING) 2217 (Not Given - Provider: Amelia Kiran RN - Reason: Order parameters not met - Comment: [id number]) 2135 (Not Given - Provider: Amelia Kiran RN - Reason: Order parameters not met - Comment: Gi= [phone]) 1-5 Units, Subcutaneous, AT BEDTIME, Fir st dose on Sat03/03/21 at 2000, MEDIUM INSULIN RESISTANCE DOSING Do Not give Bedtime Correction Insulin if BG less than 200. For BG 200 - 249 give 1 units. For B G 250 - 299 give 2 units. For BG 300 - 3 49 give 3 units. For BG 350 -399 give 4 units. For BG greater than or equal to 400 give 5 units. Notify provider if glucose greater than or equal to 350 mg/dL aft er administration of correction dose. If given at mealtime, administer within 30 minutes of start of meal lisinopril (ZESTRIL) tablet 20 mg 0806 (Given - Provider: Nicki Lynn RN) 0856 (Given - Provider: Bhavesh Lynn RN) 0801 (Given - Provider: Elaine Bonner RN) 20 mg, Oral, DAILY, First dose on Sat03/03/21 at 1600 meloxicam (MOBIC) tablet 15 mg 0805 (Given - Provider: Bhavesh Lynn RN) 0856 (Given - Provider: Bhavesh Lynn RN) 0801 (Given - Provider: Elaine Bonner RN) 15 mg, Oral, DAILY, First dose on Sat03/03/21 at 1600 metFORMIN (GLUCOPHAGE) tablet 1,000 mg 1335 (Given - P rovider: Bhavesh Lynn RN)1811 (Given - Provider: Bhavesh Lynn RN) 0856 (Given - Provider: Bhavesh Lynn RN)1733 (Given - Provider: Bhavesh Lynn RN) 0801 (Given - Provider: Elaine Bonner RN)1800 (Canceled Entry - Provider: Orders Generic Provider - Comment: Automatically canceled at discontinue of medication order) 1,000 mg, Oral, 2 TIMES DAILY WITH MEALS , First dose on Sat03/04/21 at 1330, If the patient receives intravenous, iodinated contrast and patient GFR is greater than 60 mL/min/1.7m2, continue metformin. Contact provider for 'hold' or 'no hold ' instructions if no GFR or if GFR is less than 60 mL/min/1.7m2. omeprazole (priLOSEC) CR capsule 40 mg 0805 (Given - Provide r: Bhavesh Lynn RN) 0856 (Given - Provider: Bhavesh Lynn RN) 08 (Given - Provider: Elaine Bonner RN) 40 mg, Oral, DAILY, First dose on Sat03/03/21 at 1600 QUEtiapine (SEROquel) tablet 200 mg 2210 (Given - Prov ider: Amelia Kiran RN) 2135 (Given - Provider: Amelia Kiran RN) 200 mg, Oral, AT BEDTIME, First dose on Sat03/03/21 at 2000 sertraline (ZOLOFT) tablet 50 mg 08 (Given - Provider: Pam Lynn RN) 0856 (Given - Provider: Bhavesh Lynn RN) 08 (Given - Provider: Elaine Bonner , MARIANN) 50 mg, Oral, DAILY, First dose on Sat03/03/21 at 1600 simvastatin (ZOCOR) tablet 20 mg 1610 (Given - Provider: Pam Lynn RN) 1733 (Given - Provider: Bhavesh Lynn RN) 1700 (Canceled Entry - Provider: Orders Generic Provider - Comment: Automatically canceled at discontinue of medication order) 20 mg, Oral, DAILY WITH SUPPER, First dose on Sat03/03/21 at 17 00 tamsulosin (FLOMAX) capsule 0.4 mg 08 (Given - Provider: John Lynn RN) 08 (Given - Provider: Bhavesh Lynn RN) 08 (Given - Provider: Elaine Bonner RN) 0.4 mg, Oral, DAILY, First dose on Sat at 1600, Administer 30 minutes after the same meal each day. Capsules should be swallowed whole; do not crush chew or open. traZODone (DESYREL) half-tab 75 mg 2210 (Given - Provi reece: Amelia Kiran RN) 2135 (Given - Provider: Amelia Kiran RN) 75 mg, Oral, AT BEDTIME, First dose on Sat03/03/21 at 2000 Continuous Medication Order 03/04/2021 03/05/202103/06/2021 sodium chloride 0.9% infusion (CANCELED) 0400 (New Bag - Provider: Amelia Kiran, RN)1325 (Stopped - Provider: Bhavesh Lynn, RN) at 100 mL/hr, Intravenous, CONTINUOUS, S tarting on Sat03/03/21 at 1600, Until 03/04/21 at 1218 PRN Medication Order 03/04/2021 03/05/2021 03/06/2021 acetaminophen (TYLENOL) solution 650 mg 1805 (Given - Provider: Bhavesh Lynn, RN) 0156 (Given - Provider: Amelia perez, RN) 650 mg, Oral, EVERY 4 HOURS PRN, mild pa in, fever, Starting on Sat03/05/21 at 1749, Maximum acetaminophen dose from all sources= 75 mg/kg/day not to exceed 4 grams/day. dextrose 50 % injection 25-50 mL(Linked Group 1) 25-50 mL, Intravenous, EVERY 15 MIN PRN, low blood sugar, Administer over 1-5 Minutes, Starting on Sat03/03/21 at 1538, Use if have IV access, BG less than 70 mg/dL and meet dose criteria below: Dose i f conscious and alert (or disorientated) and NPO = 25 mL Dose if unconscious / not alert = 50 mL Give first dose for initial blood glucose less than 70 mg/dL. If blood glucose at 15 minute recheck is le ss than or equal to 100 mg/dL continue t o administer carbohydrate treatment every 15 minutes, as needed, based on blood glucose and assessment parameters until blood glucose level is above 100 mg/dL. Vesicant. glucagon injection 1 mg(Linked Group 1) 1 mg, Subcutaneous, EVERY 15 MIN PRN, lo w blood sugar, May repeat x 1 only, Starting on Sat03/03/21 at 1538, May give SQ or IM. ONLY use glucagon IF patient has NO IV access AND is UNABLE to swallow AN D blood glucose is LESS than or EQUAL to 50 mg/dL. glucose gel 15-30 g(Linked Group 1) 15-30 g, Oral, EVERY 15 MIN PRN, low blo od sugar, Starting on Sat03/03/21 at 1538, Give first dose for initial blood glucose less than 70 mg/dL per the dosing instructions below. If blood glucose at 15 minute rechecks is still less than or e qual to 100 mg/dL, continue to administer doses per blood glucose parameters every 15 minutes, as needed, until blood glucose level is above 100 mg/dL. Dosing Ins tructions: ~If patient is conscious and able to swallow and NO enteral tube For initial BG 51-69mg/dL OR 15 minute recheck BG 51- 100 mg/dL - give 15 g For BG less than or equal to 50 mg/dL - give 30 g ~ If Enteral tube For initial BG 51-69mg /dL OR 15 minute recheck BG 51- 100 mg/dL - give apple juice 120 mL (4 oz or 15 g of CHO) via enteral tube For BG less than or equal to 50 mg/dL - Give apple juic e 240 mL (8 oz or 30 g of CHO) via enter al tube ~Oral gel is preferable for conscious and able to swallow patient. ~IF gel unavailable or patient refuses may provide apple juice per Enteral tube dosing instructions. Document juice on I and O flowsheet. LORazepam (ATIVAN) tablet 0.5 mg 0.5 mg, Oral, EVERY 4 HOURS PRN, anxiety, Starting on Sat at 1910 melatonin tablet 1 mg 1 mg, Oral, AT BEDTIME PRN, sleep, Start ing on Sat03/03/21 at 1538, Do not give unless at least 6 hours of uninterrupted sleep is expected. naloxone (NARCAN) injection 0.2 mg(Linked Group 2) 0.2 mg, Intravenous, EVERY 2 MIN PRN, op ioid reversal, Starting on Sat03/03/21 at 1914, Administer intravenous route when available and notify provider when administered. For unintended sedation or res piratory depression if all of the below criteria are met: ~ respiratory rate LESS than or EQUAL to 8. ~SaO2 less than 92% and or/end-tidal CO2 is greater than 50. ~ the patient is receiving an opioid, h as unintended sedations assessed as RASS (-3), and is currently not on mechanical ventilation. RASS scale moderate (-3) is movement or eye opening to voice but no eye contact. Patient Monitoring Once th e patient has demonstrated a response to the naloxone, continue to monitor respiratory rate, depth, oxygen saturation and end-tidal CO2 (if available) every 15 minutes x 2, then every 30 minutes x 2, th en every 1 hour x 1 after each naloxone dose. Consider transfer to ICU if patient respiratory parameters have not improved after 4 naloxone doses. naloxone (NARCAN) injection 0.2 mg(Linked Group 2) 0.2 mg, Intramuscular, EVERY 2 MIN PRN, opioid reversal, Starting on Sat03/03/21 at 1913, Administer intramuscular if an intravenous route is not available and notify provider when administered. For un intended sedation or respiratory depress ion if all of the below criteria are met: ~ respiratory rate LESS than or EQUAL to 8. ~SaO2 less than 92% and or/end- tidal CO2 is greater than 50. ~ the patient i s receiving an opioid, has unintended se dations assessed as RASS (-3), and is currently not on mechanical ventilation. RASS scale moderate (-3) is movement or eye opening to voice but no eye contact. Pa tient Monitoring Once the patient has de monstrated a response to the naloxone, continue to monitor respiratory rate, depth, oxygen saturation and end-tidal CO2 (if available) every 15 minutes x 2, then every 30 minutes x 2, then every 1 hour x 1 after each naloxone dose. Consider transfer to ICU if patient respiratory parameters have not improved after 4 naloxone doses. naloxone (NARCAN) injection 0.4 mg(Linked Group 2) 0.4 mg, Intravenous, EVERY 2 MIN PRN, op ioid reversal, Starting on Sat03/03/21 at 1913, Administer intravenous route when available and notify provider when administered. For unintended sedation or res piratory depression if all of the below criteria are met: ~ respiratory rate LESS than or EQUAL to 8. ~ SaO2 less than 92% and or/end-tidal CO2 is greater than 50. ~ the patient is receiving an opioid, has unintended sedation assessed as RASS (-4) or (-5) and patient is currently not on mechanical ventilation. RASS scale (-4) is deep sedation with no response to voice but movement or eye opening to ph ysical stimulation. RASS scale (-5) is u narousable. Patient Monitoring Once the patient has demonstrated a response to the naloxone, continue to monitor respiratory rate, depth, oxygen saturation and en d-tidal CO2 (if available) every 15 kizzy eriberto x 2, then every 30 minutes x 2, then every 1 hour x 1 after each naloxone dose. Consider transfer to ICU if patient respiratory parameters have not improved after 4 naloxone doses. naloxone (NARCAN) injection 0.4 mg(Linked Group 2) 0.4 mg, Intramuscular, EVERY 2 MIN PRN, opioid reversal, Starting on Sat03/03/21 at 1914, Administer intramuscular if an intravenous route is not available and notify provider when administered. For un intended sedation or respiratory depress ion if all of the below criteria are met: ~ respiratory rate LESS than or EQUAL to 8. ~ SaO2 less than 92% and or/end-tidal CO2 is greater than 50. ~ the patient is receiving an opioid, has unintended s edation assessed as RASS (-4) or (-5) and patient is currently not on mechanical ventilation. RASS scale (-4) is deep sedation with no response to voice but movem ent or eye opening to physical stimulati on. RASS scale (-5) is unarousable. Patient Monitoring Once the patient has demonstrated a response to the naloxone, continue to monitor respiratory rate, depth, oxygen saturation and end-tidal CO2 (if available) every 15 minutes x 2, then every 30 minutes x 2, then every 1 hour x 1 after each naloxone dose. Consider transfer to ICU if patient respiratory parameters have not improved after 4 naloxone doses. ondansetron (ZOFRAN) injection 4 mg(Linked Group 3) 4 mg, Intravenous, EVERY 6 HOURS PRN, na usea, vomiting, Administer over 2-5 Minutes, Starting on Sat03/03/21 at 1538, Give IF patient unable to tolerate oral medication. This is Step 1 of nausea and vo miting management. If nausea not resolve d in 15 minutes, go to Step 2 prochlorperazine (COMPAZINE). Irritant. ondansetron (ZOFRAN-ODT) ODT tab 4 mg(Linked Group 3) 4 mg, Oral, EVERY 6 HOURS PRN, nausea, v omiting, Starting on Sat03/03/21 at 1538, This is Step 1 of nausea and vomiting management. If nausea not resolved in 15 minutes, go to Step 2 prochlorperazine ( COMPAZINE). With dry hands, peel back fo il backing and gently remove tablet. Do not push oral disintegrating tablet through foil backing. Administer immediately on tongue and oral disintegrating tablet dissolves in seconds, then swallow with saliva. Liquid not requi red. oxyCODONE (ROXICODONE) tablet 5 mg (CANCELED) 0356 (Gi adina - Provider: Amelia Kiran, RN) 5 mg, Oral, EVERY 6 HOURS PRN, moderate to severe pain, Starting on Sat03/03/21 at 1911 senna-docusate (SENOKOT-S/PERICOLACE) 8. 6-50 MG per tablet 1 tablet(Linked Group 4) 1 tablet, Oral, 2 TIMES DAILY PRN, const ipation, Starting on Sat03/03/21 at 1538, If no bowel movement in 24 hours, increase to 2 tablets by mouth. Hold for loose stools. senna-docusate (SENOKOT-S/PERICOLACE) 8. 6-50 MG per tablet 2 tablet(Linked Group 4) 2 tablet, Oral, 2 TIMES DAILY PRN, const ipation, Starting on Sat03/03/21 at 1538, Hold for loose stools. traMADol (ULTRAM) tablet 50 mg (CANCELED) 0909 (Given - Provider: Bhavesh Lynn RN) 50 mg, Oral, EVERY 6 HOURS PRN, moderate pain, Startin g on 03/04/21 at 0803 traMADol (ULTRAM) tablet 50-100 mg 1023 (Given - Provi reece: Bhavesh Lynn RN)1610 (Given - Provider: Bhavesh Lynn RN)2209 (Given - Provider: Amelia Kiran RN) 0522 (Given - Provider: Amelia perez RN)1144 (Given - Provider: Bhavesh Lynn RN)1805 (Given - Provider: Bhavesh Lynn RN) 0613 (Given - Provider: Amelia Kiran RN)1558 (Given - Provider: Sandra Quintana RN) 50-100 mg, Oral, EVERY 6 HOURS PRN, mode rate pain, Starting on 03/04/21 at 0953 Linked Groups Order Group 1: glucose gel 15-30 gJump to med 15-30 g, Oral, EVERY 15 MIN PRN, low blo od sugar, Starting on Sat03/03/21 at 1538
Give first dose for initial blood glucose less than 70 mg/dL per the dosing instructions below. If b lood glucose at [address] ill less than or equal to 100 mg/dL, continue to administer doses per blood glucose parameters every 15 minutes, as needed, until blood glucose level is above 100 mg/dL. Dosing Instructions:& nbsp;~If patient is conscious and able to swallow and NO enteral tube For initial BG 51-69mg/dL OR 15 minute recheck BG 51- 100 mg/dL - give 15 g For BG less than or equal to 5 0 mg/dL - give 30 g ~ If Enteral tube For initial BG 51-69mg/dL OR 15 minute recheck BG 51- 100 mg/dL - give apple juice 120 mL (4 oz or 15 g of CHO) via enteral tube For BG l ess than or equal to 50 mg/dL - Give apple juice 240 mL (8 oz or 30 g of CHO) via enteral tube ~Oral gel is preferable for conscious and able to swal low patient. ~IF gel unavailable o r patient refuses may provide apple juice per Enteral tube dosing instructions. Document juice on I and O flowsheet.
Or dextrose 50 % injection 25-50 mLJump to med 25-50 mL, Intravenous, EVERY 15 MIN PRN, low blood sugar, Administer over 1-5 Minutes, Starting on Sat03/03/21 at 1538
Use if have IV access, BG less than 70 mg/dL and meet dose criteria below : Dose if conscious and alert (or d isorientated) and NPO = 25 mL Dose if unconscious / not alert = 50 mL Give first dose for initial blood glucose less than 70&n bsp; mg/dL. If blood glu cose at 15 minute recheck is less than or equal to 100 mg/dL continue to administer carbohydrate treatment every 15 minutes, as needed, based on blood glucose and assessment parameters until blood glucose level is above 100 mg/dL. Vesicant.
Or glucagon injection 1 mgJump to med 1 mg, Subcutaneous, EVERY 15 MIN PRN, lo w blood sugar, May repeat x 1 only, Starting on Sat03/03/21 at 1538
May give SQ or IM. ONLY use glucagon IF patient has NO IV access AND is UNABLE to sw allow AND blood glucose is LESS than or EQUAL to 50 mg/dL.
Group 2: naloxone (NARCAN) injection 0.2 mgJump to med 0.2 mg, Intravenous, EVERY 2 MIN PRN, op ioid reversal, Starting on Sat03/03/21 at 1914
Administer intravenous route when available and notify provider when administered. For unintende d sedation or respiratory depression if all of the below criteria are met: ~ respiratory rate LESS than or EQUAL to 8. ~SaO2 less than 92% and or/end-tidal CO2 is greater than 50.&amp ;nbsp;~ the patient is receiving an opio id, has unintended sedations assessed as RASS (-3), and is currently not on mechanical ventilation. RASS scale moderate (-3) is movement or eye opening to voice but no eye contact.&nb sp; Patient Monitoring Once the patient has demonstrated a response to the naloxone, continue to monitor respiratory rate, depth, oxygen sat uration and end-tidal CO2 (if available) every 15 minutes x 2, then every 30 minutes x 2, then every 1 hour x 1 after each naloxone dose. Consider transfer to ICU if patient respirato ry parameters have not improved after 4 naloxone doses.
Or naloxone (NARCAN) injection 0.4 mgJump to med 0.4 mg, Intravenous, EVERY 2 MIN PRN, op ioid reversal, Starting on Sat03/03/21 at 1914
Administer intravenous route when available and notify provider when administered. For unintende d sedation or respiratory depression if all of the below criteria are met: ~ respiratory rate LESS than or EQUAL to 8. ~ SaO2 less than 92% and or/end-tidal CO2 is greater than 50.&amp ;nbsp;~ the patient is receiving an opio id, has unintended sedation assessed as RASS (-4) or (-5) and patient is currently not on mechanical ventilation. RASS scale (-4) is deep sedat ion with no response to voice but moveme nt or eye opening to physical stimulation. RASS scale (-5) is unarousable. Patient Monitoring O nce the patient has demonstrated a respo nse to the naloxone, continue to monitor respiratory rate, depth, oxygen saturation and end-tidal CO2 (if available) every 15 minutes x 2, then every 30 minutes x 2, then every 1 hour x 1 after each nal oxone dose. Consider transfer to ICU if patient respiratory parameters have not improved after 4 naloxone doses.
Or naloxone (NARCAN) injection 0.2 mgJump to med 0.2 mg, Intramuscular, EVERY 2 MIN PRN, opioid reversal, Starting on Sat03/03/21 at 1913
Administer intramuscular if an intravenous route is not available and notify provider when administered . For unintended sedation or respir atory depression if all of the below criteria are met: ~ respiratory rate LESS than or EQUAL to 8. ~SaO2 less than 92% and or/end-tidal CO2 is greater than 50. ~ the patient is receiving an opioid, has unintended sedations assessed as RASS (-3), and is currently not on mechanical ventilation. RASS scale moderate (-3) is movement or eye opening to voic e but no eye contact. Patient Monitoring Once the patient has demonstrated a response to the naloxone, continue to monitor respiratory rate, depth, oxygen saturation and end- tidal CO2 (if available) every 15 minutes x 2, then every 30 minutes x 2, then every 1 hour x 1 after each naloxone dose. Consider transfer to ICU if patient respiratory parameters boyer ve not improved after 4 naloxone doses.
Or naloxone (NARCAN) injection 0.4 mgJump to med 0.4 mg, Intramuscular, EVERY 2 MIN PRN, opioid reversal, Starting on Sat03/03/21 at 1914
Administer intramuscular if an intravenous route is not available and notify provider when administered . For unintended sedation or respir atory depression if all of the below criteria are met: ~ respiratory rate LESS than or EQUAL to 8. ~ SaO2 less than 92% and or/end-tidal CO2 is greater than 50. ~ the patient is receiving an opioid, has unintended sedation assessed as RASS (-4) or (-5) and patient is currently not on mechanical ventilation. RASS scale (-4) is deep sedation with no resp onse to voice but movement or eye opening to physical stimulation. RASS scale (-5) is unarousable. Patie nt Monitoring Once the patient has demonstrated a response to the naloxone, continue to monitor respiratory rate, depth, oxygen saturation and end-tidal CO2 (if available) every 15 minutes x 2, then every 30 minutes x 2, then every 1 hour x 1 after each naloxone dose. Consider transfer to ICU if patient respiratory parameters have not improved after 4 naloxone doses.
Group 3: ondansetron (ZOFRAN-ODT) ODT tab 4 mgJump to med 4 mg, Oral, EVERY 6 HOURS PRN, nausea, v omiting, Starting on Sat03/03/21 at 1538
This is Step 1 of nausea and vomiting management. If nausea not resolved in 15 minutes, go t o Step 2 prochlorperazine (COMPAZINE).&n bsp;With dry hands, peel back foil backing and gently remove tablet. Do not push oral disintegrating tablet through foil backing. Administer immediately on to ngue and oral disintegrating tablet diss olves in seconds, then swallow with saliva. Liquid not required.
Or ondansetron (ZOFRAN) injection 4 mgJump to med 4 mg, Intravenous, EVERY 6 HOURS PRN, na usea, vomiting, Administer over 2-5 Minutes, Starting on Sat03/03/21 at 1538
Give IF patient unable to tolerate oral medication. This is Step 1 of nausea and vomiting management. If n ausea not resolved in 15 minutes, go to Step 2 prochlorperazine (COMPAZINE). Irritant.
Group 4: senna-docusate (SENOKOT-S/PERICOLACE) 8.6-50 MG per tablet 1 tabletJump to med 1 tablet, Oral, 2 TIMES DAILY PRN, const ipation, Starting on Sat03/03/21 at 1538
If no bowel movement in 24 hours, increase to 2 tablets by mouth. Hold for loose stools.
Or senna-docusate (SENOKOT-S/PERICOLACE) 8.6-50 MG per tablet 2 tabletJump to med 2 tablet, Oral, 2 TIMES DAILY PRN, const ipation, Starting on Sat03/03/21 at 1538
Hold for loose stools.
documented in this encounter Care Teams Analytic Programmer Relationship Specialty Start Date End Date Mario Keith MD PCP - General Internal Medicine 11/28/17 [facility] [address] [place] [address] documented as of this encounter
--- OUTSIDE RECORDS SUMMARY | 2021-12-27 11:08 | XMS_ITS | Encounter Summary ---
:1955 Author Organization [place] Address [facility] [place] [address] Care Team Providers Name Role Phone Unavailable Primary Care Provider Unavailable Encounter Details Date Type Department Care Team Description 08/25/2007 Historic Notes INTERFACED REPORT Interface, Transcript on, Social History Tobacco Use Types Packs/Day Years Used Date Never Assessed Sex Assigned at Date Recorded Not on file documented as of this encounter Progress Notes Interface, [employer] - 08/07/2010 12:05 AM CDT BARIATRIC FOLLOW UP NOTE DATE OF VISIT: 08/25/07 REASON FOR VISIT: structured weight loss session WEIGHT: 308.3# DIETARY HABITS: Patient is inconsistent with eating habits. Has been practicing avoiding liquids with meals. Limited intake of fruits and vegetables. States drank 12 beer during course of day 08/23/07. Has not been walking on treadmill. Other: Patient continues to be off of work due to stress. PCP has not approved patient to return to work. GOALS: Decrease 9# prior to surgery to meet weight loss goal Eat 3 meals per day Avoid liquids with meals TIME SPENT WITH PATIENT: 25 minutes [Signature] Author:CHIDI HIGH (MEd, RD, LD) [Signed 10:56] documented in this encounter Plan of Treatment Not on filedocumented as of this encounter Visit Diagnoses Not on filedocumented in this encounter
--- OUTSIDE RECORDS SUMMARY | 2021-12-27 11:08 | XMS_ITS | Encounter Summary ---
:1955 Author Organization [place] Address [address] [facility] [place] [address] Care Team Providers Name Role Phone Unavailable Primary Care Provider Unavailable Encounter Details Date Type Department Care Team Description 10/21/2007 Results Only [facility] Kalpana Ram, [facility] PA-C Results SURGICAL CONSULT [facility] [address] [facility] [address] [place], [place] [id number] (Wo rk) Social History Tobacco Use Types Packs/Day Years Used Date Never Assessed Sex Assigned at Date Recorded Not on file documented as of this encounter Plan of Treatment Not on filedocumented as of this encounter Procedures Procedure Name Priority Date/Time Associated Diagnosis Comme nts HC UPPER GI W/O KUB Routine 10/21/2007 7:35 AM Re sults for this CDT procedure are i n the results section. documented in this encounter Results XRAY UPPER GI TRACT (10/21/2007 7:35 AM CDT) Specimen (Source) Anatomical Collection Method Collection Time Re ceived Time Location / / Volume Laterality 10/21/2007 7:35 AM CDT Impressions RADIOLOGY RESULTS - 10/21/2007 7:40 AM C DT UGI W/ GASTROGRAFIN Oct 21, 2007 7:35:00 AM HISTORY: Gastrojejunostomy, ??with Gastr ografin by 11:00 POD #1. Post-op Gastric Bypass. FINDINGS: ?Patient was given Gastrog rafin in the upright position. Contrast readily entered the gastric rem nant. No anastomotic leak was demonstrated. There was a beak sign at t he gastrojejunal anastomosis. A standing column of contrast was seen w ithin the stomach and esophagus. Emptying into the jejunum was slow but eventually present. Visualized portion of the proximal small bowel appeared within normal limits. While waiting for the stomach co ntents to empty into the jejunum, prominent gastroesophageal refl ux with an air-fluid level in the distal esophagus was noted. Kalpana Ram PA-C [facility] Performing Organization Address City/State/ZIP Code Phon e Number RADIOLOGY RESULTS documented in this encounter Visit Diagnoses Not on filedocumented in this encounter
--- OUTSIDE RECORDS SUMMARY | 2021-12-27 11:08 | XMS_ITS | Encounter Summary ---
:1955 Author Organization [place] Address [address] [place] [address] Care Team Providers Name Role Phone Unavailable Primary Care Provider Unavailable Encounter Details Date Type Department Care Team Description 10/21/2007 Historic Results INTERFACED REPORT Alireza White MD [address] [facility] [address] [place], [place] [address] (Wo rk) Social History Tobacco Use Types Packs/Day Years Used Date Never Assessed Sex Assigned at Date Recorded Not on file documented as of this encounter Plan of Treatment Not on filedocumented as of this encounter Procedures Procedure Name Priority Date/Time Associated Diagnosis Comme nts GLUCOSE BY METER Routine 10/21/2007 8:44 PM Resul ts for this CDT procedure are i n the results section. GLUCOSE BY METER Routine 10/21/2007 6:04 PM Resul ts for this CDT procedure are i n the results section. GLUCOSE BY METER Routine 10/21/2007 11:35 AM Resu lts for this CDT procedure are i n the results section. ELECTROLYTE PANEL Routine 10/21/2007 10:05 AM Res ults for this CDT procedure are i n the results section. HEMOGLOBIN Routine 10/21/2007 10:05 AM Results for this CDT procedure are i n the results section. GLUCOSE BY METER Routine 10/21/2007 7:58 AM Resul ts for this CDT procedure are i n the results section. documented in this encounter Results (ABNORMAL) Glucose by meter (10/21/2007 8:44 PM CDT) P athologist Signature Glucose 102 (H) 60 - 99 MISYS mg/dL Specimen Anatomical Collection Method Collection Time Receive d Time (Source) Location / / Volume Laterality 10/21/2007 8:44 PM 8 CDT 10:46 PM CDT Alireza SANTOS - BELELO POCT Performing Organization Address [facility] Phon e Number MISYS (ABNORMAL) Glucose by meter (10/21/2007 6:04 PM CDT) P athologist Signature Glucose 111 (H) 60 - 99 MISYS mg/dL Specimen Anatomical Collection Method Collection Time Receive d Time (Source) Location / / Volume Laterality 10/21/2007 6:04 PM 8 CDT 10:46 PM CDT Alireza SANTOS - BELELO POCT Performing Organization Address [facility] Phon e Number MISYS (ABNORMAL) Glucose by meter (10/21/2007 11:35 AM CDT) P athologist Signature Glucose 134 (H) 60 - 99 MISYS mg/dL Specimen Anatomical Collection Method Collection Time Receive d Time (Source) Location / / Volume Laterality 10/21/2007 11:35 10/21/2007 AM CDT 10:46 PM CDT Alireza SANTOS - ENEDINA POCT Performing Organization Address [facility] Phon e Number MISYS (ABNORMAL) Hemoglobin (10/21/2007 10:05 AM CDT) P athologist Signature Hemoglobin 12.1 (L) 13.3 - 17.7 MISYS g/dL Specimen (Source) Anatomical Collection Method Collection Time Re ceived Time Location / / Volume Laterality 10/21/2007 10:05 10/21/2007 AM CDT Kalpana Ram PA-C LAB - BLOOD ORDERABLES Performing Organization Address City/[facility] Phon e Number MISYS (ABNORMAL) Electrolyte panel (10/21/2007 10:05 AM CDT) P athologist Signature Sodium 137 133 - 144 MISYS mmol/L Potassium 3.6 3.4 - 5.3 MISYS mmol/L Chloride 101 94 - 109 MISYS mmol/L Carbon Dioxide 31 20 - 32 MISYS mmol/L Anion Gap 5 (L) 6 - 17 MISYS mmol/L Specimen (Source) Anatomical Collection Method Collection Time Re ceived Time Location / / Volume Laterality 10/21/2007 10:05 10/21/2007 AM CDT Kalpana Ram PA-C LAB - BLOOD ORDERABLES Performing Organization Address City/State/ZIP Code Phon e Number MISYS (ABNORMAL) Glucose by meter (10/21/2007 7:58 AM CDT) P athologist Signature Glucose 129 (H) 60 - 99 MISYS mg/dL Specimen Anatomical Collection Method Collection Time Receive d Time (Source) Location / / Volume Laterality 10/21/2007 7:58 AM 8 CDT 10:51 PM CDT Alireza White MD LAB - BEAKER POCT Performing Organization Address City/State/[facility] Code Phon e Number MISYS documented in this encounter Visit Diagnoses Not on filedocumented in this encounter
--- OUTSIDE RECORDS SUMMARY | 2021-12-27 11:08 | XMS_ITS | Encounter Summary ---
:1955 Author Organization [facility] Address [address] [place] [address] Care Team Providers Name Role Phone Unavailable Primary Care Provider Unavailable Reason for Visit Reason Onset Date Comments Pt. Information/instruction 10/27/2012 Other Encounter Details Date Type Department Care Team Description 10/27/2012 Telephone Surgery Clinic Gaby Hicks, Pt. Samaria RN Information/instructio [address]; 1[address] Floor, Clinic [address] [place] [id number] [phone] Social History Tobacco Use Types Packs/Day Years Used Date Never Assessed Sex Assigned at Date Recorded Not on file documented as of this encounter Miscellaneous Notes Telephone Encounter - Gaby Hicks, RN - 10/27/2012 2:48 PM CDT Message copied by GABY HICKS on SatOct 27, 2012 2:48 PM ------ Message from: GRIFFIN COOMBS Created: SatOct 23, 2012 2:56 PM Regarding: pt questions on possible revision Contact: Pt had surgery done with Dr White out [facility] in 2007. 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 Pt has since gained weight back and is wondering about getting the ring surgery done to help him lose weight again. Pt wondering if any of the physicians here will do the ring surgery Pls call pt back to answer questions [phone] Thanks Coordinator talked to patient. Informed patient that we do not routinely put a adjustable ring on patients after gastric bypass. Recommended medical weight management as place to start in addressing weight regain. Given contact info to schedule appt. documented in this encounter Plan of Treatment Not on filedocumented as of this encounter Visit Diagnoses Not on filedocumented in this encounter
--- OUTSIDE RECORDS SUMMARY | 2021-12-27 11:08 | XMS_ITS | Encounter Summary ---
:1955 Author Organization [place] Address [address] [place] [address] Care Team Providers Name Role Phone Unavailable Primary Care Provider Unavailable Encounter Details Date Type Department Care Team Description 03/06/2009 Historic Results [facility] [address] [facility], [address] [place] [address] (Wo rk) Social History Tobacco Use Types Packs/Day Years Used Date Never Assessed Sex Assigned at Date Recorded Not on file documented as of this encounter Plan of Treatment Not on filedocumented as of this encounter Procedures Procedure Name Priority Date/Time Associated Diagnosis Comme nts GLUCOSE BY METER Routine 03/06/2009 5:42 PM Resul ts for this CDT procedure are i n the results section. GLUCOSE BY METER Routine 03/06/2009 8:57 AM Resul ts for this CDT procedure are i n the results section. documented in this encounter Results (ABNORMAL) Glucose by meter (03/06/2009 5:42 PM CDT) P athologist Signature Glucose 118 (H) 60 - 99 MISYS mg/dL Specimen Anatomical Collection Method Collection Time Receive d Time (Source) Location / / Volume Laterality 03/06/2009 5:42 PM 9 9:10 CDT PM CDT Shukri Becker DO LAB - BEAKER POCT Performing Organization Address City/State/ZIP Code Phon e Number MISYS (ABNORMAL) Glucose by meter (03/06/2009 8:57 AM CDT) P athologist Signature Glucose 135 (H) 60 - 99 MISYS mg/dL Specimen Anatomical Collection Method Collection Time Receive d Time (Source) Location / / Volume Laterality 03/06/2009 8:57 AM 9 CDT 11:10 AM CDT Shukri HANNAH - ENEDINA POCT Performing Organization Address City/State/ZIP Code Phon e Number MISYS documented in this encounter Visit Diagnoses Not on filedocumented in this encounter
--- OUTSIDE RECORDS SUMMARY | 2021-12-27 11:08 | XMS_ITS | Encounter Summary ---
:1955 Author Organization [place] Address [facility] [place] [address] Care Team Providers Name Role Phone Mario Keith MD Primary Care Provider [phone] Encounter Details Date Type Department Care Team Description 11/28/2017 Surgery - [facility] Ann moreira MD OR [address] [place] [address] [address] [facility] [address] [phone] [address] [place], [place] [address] Social History Tobacco Use Types Packs/Day Years [...] 2:50 PM CDT documented in this encounter Plan of Treatment Not on filedocumented as of this encounter Visit Diagnoses Not on filedocumented in this encounter Care Teams Ordnance Artificer Relationship Specialty Start Date End Date Mario Keith MD PCP - General Internal Medicine 11/28/17 [facility] [address] [place] [address] documented as of this encounter
--- OUTSIDE RECORDS SUMMARY | 2021-12-27 11:08 | XMS_ITS | Encounter Summary ---
:1955 Author Organization [place] Address [address] [place] [address] Care Team Providers Name Role Phone Unavailable Primary Care Provider Unavailable Encounter Details Date Type Department Care Team Description 03/03/2009 Historic Notes INTERFACED REPORT Interface, Transcript on, Social History Tobacco Use Types Packs/Day Years Used Date Never Assessed Sex Assigned at Date Recorded Not on file documented as of this encounter Progress Notes Interface, Cherry Cutter - 08/05/2010 5:47 PM CDT General Information - How to be Addressed Leandro - Eye Color Blue - Hair Color Blonde - Does the patient's no, But is very anxious and reluctant about baseline clinical hospital stay condition render him/her unable to participate on admission? - Cultural/Ethnic Background - Patient valuables documented on Patient Valuables/Belongings Valuables/Belongings Record Singh De Leon - Clothing Search completed, Behzad Hernandez - Second Staff (name) Bud Ruano - certified personal finance counselor #1: Leandro Curiel - Relationship to Father patient #1: - Phone 1: [phone] - Patient's spoken language; Kazakh or Bilingual communication style Advance Directive - Do you have an No Advanced Health Care Directive? - Can patient name a No. The Patient is unable/chooses not to. Surrogate Decision Maker? (Not legally binding) - Would you like more No information about Advanced Health Care Directives? Allergies ?? Zyban;Hives Health and Illness - Reason for Admission Severe anxiety with thoughts of taking as Stated by Patient life--can't take this pain and depression--increasing for past 3 yrs - What is your goal for Feel better this hospitalization? - Expected Length of few days Hospitalization - Primary Care Mario Kelly--[facility] Physician - Do you have none restrictions for any of the following? - Previous General average Health - Factors that Prevent weilght mgmt and advice given Following Health Advice - Previous Reaction to none Anesthesia - Blood none Avoidance/Restrictio_ ns Medication Information - Medications Brought yes to Hospital - Medication hospital safe Disposition Review of Systems - Neurological none Conditions/Symptoms - Pain: 7 Comfort/Acceptable Pain Level (0-10) - Chronic Pain yes, Legs and arms - Word Pain Scale at (8) severe pain Rest - Pain Body Location generalized --duke legs and arms - Normal Sleep/Rest less than 6 hrs per night; varies a lot Schedule - Cardiac none Conditions/Symptoms - Peripheral/Neurovasc_ neuropathy; duke legs ular Conditions/Symptoms - Respiratory sleep apnea Conditions/Symptoms - TB Risk no indicators - Diet Regular - Do you have any no questions about your sexuality for which you would like a referral to be made? - Skin none reported Conditions/Symptoms - Endocrine type 2 diabetes; says has not needed meds for Conditions/Symptoms this for about one steve - Hematological none Conditions/Symptoms - Immune /Infections none - Influenza vaccine has not received for this flu season - Influenza vaccine patient is 50 years of age or older indications (check all that apply) - Influenza Vaccine none of the above contraindications Contraindications (check all that apply) - Pneumococcal Vaccine never immunized - Pneumococcal Vaccine none of the above indications Indications - offer year round (Check all that apply) - Recent Exposure to none Communicable Disease - Recent Travel no - Communicable Disease none History Behavioral Health History - Inpatient Mental No previous psych RX --No previous CD RX Health and Chemical Dependency Hospitalizations: Substance Use - Tobacco Use None. - Caffeine Use Not applicable - History of Alcohol Used but quit Use Chemical History - History of chemical No use?: Values/Beliefs/Spiritual Care - C: Community: In no thank you support of your spiritual health, is there someone we may contact for you? (identify all that apply) Role Relationships/Living Environment - Significant child Relationships - Employment Status unemployed - Do you have yes, 8 yo --non-senior living parent but close to responsibility for his 8 yo son minor children? - Lives With alone - Living Arrangements house Learning Assessment - Factors Influencing anxiety; depression Readiness to Learn - Factors that Impact none Ability to Learn - Learning Preferences individual instruction; verbal instruction Coping Stress - Major illness Change/Loss/Stressor Risk Assessment - What recent losses or Unable to work due to severe anxiety and disappointments have generaized pain that he attributes to anxiety you experienced (ex; and stress , divorce, financial, job loss, job change)? - Are you depressed or yes being treated for depression? - Have you ever thought no about hurting yourself now or in the past? - Have you ever thought yes, currently about suicide now or in the past? - Describe your current Has thought of using his gun to shoot himself thoughts of suicide. but says he'd never go through with it because of his son - Have you ever no attempted suicide? - Are you having no thoughts of suicide now? Legal History - Legal Status at Voluntary/Patient has signed consent for Admission treatment Signatures PAULY WYNN (RN)[Signed 14:34] Authored: Review of Systems AUBREY BURK (MARIANN)[Signed 21:09] Authored: General Information, Advance Directive, Allergies, Health and Illness, Medication Information, Review of Systems, Behavioral Health History, Substance Use, Chemical History, Values/Beliefs/Spiritual Care, Role Relationships/Living Environment, Learning Assessment, Coping Stress, Risk Assessment, Legal History ADRIENNE ESPARZA I (RN)[Signed 21:11] Authored: General Information BEHZAD HERNANDEZ (Psych Associate)[Signed 19:26] Authored: General Information documented in this encounter Plan of Treatment Not on filedocumented as of this encounter Visit Diagnoses Not on filedocumented in this encounter
--- OUTSIDE RECORDS SUMMARY | 2021-12-27 11:08 | XMS_ITS | Encounter Summary ---
:1955 Author Organization [place] Address [facility] [place] [address] Care Team Providers Name Role Phone Unavailable Primary Care Provider Unavailable Encounter Details Date Type Department Care Team Description 03/04/2009 Consultation [facility] [address] [facility] [place], [place] [address] (Wo rk) Social History Tobacco Use Types Packs/Day Years Used Date Never Assessed Sex Assigned at Date Recorded Not on file documented as of this encounter Progress Notes Graciela Minaya - 03/12/2009 1:41 PM CDT FINAL REFERRING PHYSICIAN: Shukri Becker DO HISTORY OF PRESENT ILLNESS: Jett Georges is a 53-year-old male who presents to the hospital with issues surrounding depression with suicidal ideation. I was asked to see this patient by for an Internal Medicine consult. At the present time, the patient states he is complaining of mild sore throat which began today, but he states he does not have any other URI symptoms such as cough, pain in his ears, nasal congestion, rhinorrhea or fever or chills. He is also stating that he does not wish to have any treatment or throat lozenges available to him to treat this. He also complainsof pain that is diffuse throughout his body related to anxiety but also related to chronic ongoing neuropathic pain. PAST MEDICAL HISTORY: 1. Date type 2 diabetes. 2. Chronic neuropathy in the lower extremities. 3. Sleep apnea. 4. Osteoarthritis in ankles and knees. 5. GERD. MEDICATIONS: Prior to admission included: 1. Lorazepam. 2. Glucophage 1000 mg q.a.m. and 500 mg each day at bedtime. The patient states he took this approximately 1 year ago, but currently does not take it. 3. Nexium 40 mg daily. 4. Celexa. ALLERGIES: Zyban, which produces hives. PAST SURGICAL HISTORY: The patient had a gastric bypass approximately 1 year ago. SOCIAL HISTORY: The patient states he used tobacco products in the past but currently does not use them. States he uses alcohol on a very occasional and social basis. States he does not use any other types of drugs. REVIEW OF SYSTEMS: This was negative at this time with the exception of items mentioned in HPI. PHYSICAL EXAMINATION: VITAL SIGNS: Blood pressure 121/78, heart rate 72, temperature 97.1. GENERAL: This patient is in no acute distress but appears fatigued. HEENT: There is some mild posterior pharyngeal erythema that is noted. Also some mild tonsillar hypertrophy noted bilaterally, but no exudates are noted. Pupils are equal, round and reactive to light.External ocular movements are intact. Conjunctivae are normal. Sclerae are normal. NECK: No thyromegaly. Some tenderness to the pharyngeal lymph nodes bilaterally but no lymphadenopathy is presently noted. CARDIOVASCULAR: Possible soft murmur heard at the left upper sternal border approximately 2/6. This murmur is systolic. Normal rhythm and normal rate. PULMONARY: Lungs are clear to auscultation in all 4 valentin. ABDOMEN: Obese but soft, positive bowel sounds, no hepatosplenomegaly. NEUROLOGIC: Cranial nerves II-XII are grossly intact. Light touch is decreased to bilateral plantaraspects of his feet but to extremities intact grossly in all 4 extremities, liberal arts teacher is 5/5 bilaterally. LABORATORY DATA: His comprehensive metabolic battery was normal with the exception of glucose whichis elevated to 210. His TSH was 2.8. His GGT was 48. Records from [facility] indicated his CBC was normal, and urine drug screen was normal with the exception of some benzodiazepines, but the patient is on lorazepam daily. ASSESSMENT AND PLAN: 1. Depression with suicidal ideation per Dr. Becker. 2. Type 2 diabetes. Continue metformin at 500 mg p.o. b.i.d. Order Accu-Cheks t.i.d. 3. Obstructivesleep apnea. The patient currently has a CPAP machine for use here. 4. Chronic neuropathy. This causes the patient pain and some decrease in sensation. Will check a vitamin B12 level due to his historyof gastric bypass and he is currently not taking vitamin B12 and has not been for a long time. Also,will order a B12 injection 1000 mcg to cover for this. Also, will order Neurontin to start for the neuropathic pain 100 mg t.i.d. x1 day, 200 mg t.i.d. x1 day, then 300 mg t.i.d. indefinitely. Electronically signed on 03/12/2009 13:41 by GRACIELA MINAYA MD As dictated by CARL JUAREZ STUDENT MT: dougie Name: JETT GEORGES MRN: [id number] Account: [id number] : 1955 Consult Date: 03/04/2009 Document: [id number] cc: Shukri Becker DO documented in this encounter Plan of Treatment Not on filedocumented as of this encounter Visit Diagnoses Not on filedocumented in this encounter
[2021-12-27] MEDS: APIXABAN 5 MG TABLET 10 MG PO (13:01)
== END 2021-12-27 13:06 | disposition home or self-care (01) ==
PROVIDERS: Emergency Provider Emergency Medicine Emergency Medical Services; PCP Internal Medicine
DX: I82.461 Acute embolism and thrombosis of right calf muscular vein (principal)
CPT/HCPCS: 93970; 93971; 99284; 99285; A9270

== ENCOUNTER 2021-12-29 12:55 | Emergency (ER) | payer MEDICARE, BC, SELFPAY ==
[2021-12-29 13:13] VITALS: BP 129/84; PULSE 77; RESP 20; TEMP 36.6; O2SAT 96; BMI 41.6
--- NOTE | 2021-12-29 13:44 | ED.GENADULT ---
HPI - General Adult General Chief complaint: Lower Extremity Swelling Stated complaint: Blood clot right leg Time Seen by Provider: 12/29/21 13:24 Source: patient Mode of arrival: ambulatory Limitations: no limitations History of Present Illness HPI narrative: 66-year-old male coming in today concerned about leg swelling. He was diagnosed with a lower extremity DVT on the right side on 12/27/2021. He has started his Eliquis as prescribed. Today he noticed he had more swelling of the right lower extremity so he came in for evaluation. He denies any shortness of breath or chest pain. He denies other systemic symptoms such as fevers or chills. He states that he does spend most of his time laying in bed watching TV. He does not elevate his leg and he has not been wearing a compression stocking when he is up walking around. Related Data Home Medications Medication Instructions Recorded Confirmed aspirin 81 mg tablet,delayed 81 mg PO QDAY 11/27/21 11/27/21 release lisinopril 20 mg tablet 20 mg PO QDAY 11/27/21 11/27/21 lorazepam 1 mg tablet 1 mg PO QDAY 11/27/21 11/27/21 meloxicam 15 mg tablet 15 mg PO QDAY 11/27/21 11/27/21 metformin 500 mg tablet 1,000 mg PO BID 11/27/21 11/27/21 omeprazole 40 mg capsule,delayed 40 mg PO DAILY 11/27/21 11/27/21 release quetiapine 200 mg tablet 200 mg PO QDAY 11/27/21 11/27/21 sertraline 50 mg tablet 50 mg PO QDAY 11/27/21 11/27/21 simvastatin 20 mg tablet 20 mg PO .hs 11/27/21 11/27/21 tamsulosin 0.4 mg capsule 0.4 mg PO QDAY 11/27/21 11/27/21 trazodone 50 mg tablet 50 mg PO .hs 11/27/21 11/27/21 Previous Rx's Medication Instructions Recorded glimepiride 4 mg tablet 4 mg PO QDAY #90 tabs 11/27/21 semaglutide 0.25 mg or 0.5 mg (2 0.25 mg (0.2 mL) subcut QWEEK #1.5 11/27/21 mg/1.5 mL) subcutaneous pen mL injector (Ozempic) sitagliptin 100 mg tablet 100 mg PO QDAY #30 tabs 11/27/21 allopurinol 300 mg tablet 300 mg PO QDAY Gout #90 tabs 12/13/21 tramadol 50 mg tablet 50 - 100 mg PO QDAY PRN pain #90 12/18/21 tabs gabapentin 300 mg capsule 900 mg PO TID #270 caps 12/20/21 apixaban 5 mg (74 tabs) tablets in See Rx Instructions PO .COMPLEX 12/27/21 a dose pack #74 ea Allergies Allergy/AdvReac Type Severity Reaction Status Date / Time No Known Allergies Allergy Verified 12/29/21 13:20 Review of Systems Status of ROS: Reports: 10 or more systems reviewed and unremarkable except as noted in History and [facility] Medical History Abrasion of elbow Back pain Contusion of left upper arm Dyspnea Headache disorder (05/2016) Sprain of left ankle Strain of rotator cuff capsule Surgical History History of gastric bypass (2008) History of inguinal hernia repair History of tonsillectomy Family History Brother Colon cancer Social History Narrative: , 2 adult kids disabled due to joint pains does not exercise but 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 excessive drinking alcohol- 24 beers/week non-smoker HX tobacco use Smoking Status: Former smoker What tobacco products do you use: cigarettes Smoking quit date/years: <= 15 years ago Do you use any of these nicotine containing products: None How often do you have a drink containing alcohol: monthly or less How often do you have six or more drinks on one occasion: Never AUDIT-C Alcohol total score: 1 Non-prescribed substance use: denies use Exam Narrative: Exam Narrative: Obese, well-developed patient in no acute distress. Alert and oriented. Answers questions appropriately. Mood and affect are appropriate. Thoughts are goal oriented and rational. No tangential or magical thinking noted. Patient speaks in full sentences without needing to catch his breath. Speech is not slurred or pressured. HEENT: Normocephalic atraumatic. Pupils are equally round reactive to light. Extraocular muscles are intact. Conjunctivae are moist without any icterus noted. Cardiovascular: Heart is regular rate and rhythm S1 and S2 are present. Lungs: Clear to auscultation bilaterally no wheezes rhonchi or rales are appreciated. Patient takes deep breaths without any discomfort. Extremities: Left lower extremity without edema. Right lower extremity is edematous but is nonpitting, he has some bruising on the dependent areas of the leg and ankle. Skin: Well perfused. Normal capillary refill of the lower extremity. Right lower extremity is warm dry and intact. Const: Vital Signs, click to edit/add: Vital Signs - 24 hr 12/29/21 13:13 Temperature 97.8 F Pulse Rate [Pulse Oximeter] 77 Respiratory Rate 20 Blood Pressure [Le ft Upper Arm] 129/84 Pulse Oximetry 96 Oxygen Delivery Me thod Room Air Course Vital Signs Vital signs: Initial Vital Signs Temperature 97.8 F 12/29/21 13:13 Temperature Source Temporal Artery Scan 12/29/21 13:13 Pulse Rate 77 12/29/21 13:13 Pulse Rhythm 12/29/21 13:13 Respiratory Rate 20 12/29/21 13:13 Blood Pressure 129/84 12/29/21 13:13 Blood Pressure Mean 99 12/29/21 13:13 Pulse Oximetry 96 12/29/21 13:13 Oxygen Delivery Method 12/29/21 13:13 Vital Signs Temperature 97.8 F 12/29/21 13:13 Pulse Rate 77 12/29/21 13:13 Respiratory Rate 20 12/29/21 13:13 Blood Pressure 129/84 12/29/21 13:13 Pulse Oximetry 96 12/29/21 13:13 Oxygen Delivery Method 12/29/21 13:13 Temperature 97.8 F 12/29/21 13:13 Pulse Rate 77 12/29/21 13:13 Respiratory Rate 20 12/29/21 13:13 Blood Pressure 129/84 12/29/21 13:13 Pulse Oximetry 96 12/29/21 13:13 Oxygen Delivery Method 12/29/21 13:13 Medical Decision Making MDM Narrative Medical decision making narrative: 66-year-old male with right lower extremity DVT. We discussed elevating the leg, wearing compression stockings. We discussed reasons to return to the ER including shortness of breath, fevers, vomiting, chest pain. Patient was agreeable with everything discussed and had no other questions. Medical Records Medical records reviewed: Yes I reviewed the patient's medical records Discharge Plan Discharge Clinical Impression: Deep venous thrombosis Patient Disposition: Home, Self-Care Condition: Stable Additional Instructions: Elevate your legs as much as possible when you are at home. Wear compression stockings when you are up walking around. Continue Eliquis as prescribed. Return to the ER if you develop chest pain, shortness of breath or fever. Prescriptions: No Action omeprazole 40 mg capsule,delayed release(DR/EC) 40 mg PO DAILY Label Comments: TAKE ONE CAPSULE BY MOUTH DAILY simvastatin 20 mg tablet 20 mg PO .hs Label Comments: TAKE ONE TABLET BY MOUTH AT BEDTIME sertraline 50 mg tablet 50 mg PO QDAY Label Comments: TAKE 1 TABLET BY MOUTH DAILY metformin 500 mg tablet 1,000 mg PO BID lorazepam 1 mg tablet 1 mg PO QDAY Label Comments: TAKE ONE TABLET BY MOUTH TWICE DAILY NEEDED quetiapine 200 mg tablet 200 mg PO QDAY Label Comments: TAKE ONE TABLET BY MOUTH AT BEDTIME tamsulosin 0.4 mg capsule 0.4 mg PO QDAY Label Comments: TAKE ONE CAPSULE BY MOUTH DAILY lisinopril 20 mg tablet 20 mg PO QDAY Label Comments: take 1 tablet by mouth daily trazodone 50 mg tablet 50 mg PO .hs Label Comments: take 1.5 tablets by mouth 3 times daily meloxicam 15 mg tablet 15 mg PO QDAY Label Comments: TAKE ONE TABLET BY MOUTH DAILY aspirin 81 mg tablet,delayed release (DR/EC) 81 mg PO QDAY Ozempic 0.25 mg or 0.5 mg(2 mg/1.5 mL) pen injector 0.25 mg subcut QWEEK Qty: 1.5 1RF Rx Instructions: for 4 doses then 0.5 mg weekly x 4 weeks glimepiride 4 mg tablet 4 mg PO QDAY Qty: 90 1RF apixaban 5 mg (74 tabs) tablets,dose pack See Rx Instructions .ROUTE .COMPLEX Qty: 74 0RF Rx Instructions: orally per package directions sitagliptin 100 mg tablet 100 mg PO QDAY Qty: 30 2RF Rx Instructions: 1/2 QD x 2 weeks then 1 QD allopurinol 300 mg tablet 300 mg PO QDAY Qty: 90 3RF Label Comments: TAKE 1 TABLET BY MOUTH DAILY tramadol 50 mg tablet 50 - 100 mg PO QDAY PRN (Reason: pain) Qty: 90 2RF Label Comments: take 1-2 tablets by mouth every 6 hours as needed gabapentin 300 mg capsule 900 mg PO TID Qty: 270 11RF Follow Up/Referrals: Mario Keith MD [Primary Care Provider] - Stand Alone Forms: MyHealth Info Instructions
--- OUTSIDE RECORDS SUMMARY | 2021-12-29 13:49 | XMS_ITS | Clinical Summary ---
:1955 Author Organization [place] Address [address] [place] [address] Care Team Providers Name Role Phone Mario Keith MD Primary Care Provider [phone] Allergies Active Allergy Reactions Severity Noted Date [...] this topic Medical Devices Implanted Type Area Doctor Osteopathic Device Shelf Model / Identifier Expiration Serial / Date Lot Cement Bone Simplex Hv 40g W/O Gentra Cement, N/A: YVON 04/18/2019 [id number] / Implanted: Qty: 2 on 11/28/2017 Bone Knee ORTHOPEDICS / [id number] Description: Implanted into bilateral kn ees Persona Partial Knee System Partial Bárbara cular Surface Left Medial Size J 8mm Thickness Total Joint Left: Ixtens 08/17/2021 [id number] / Implanted: Qty: 1 on 11/28/2017 Component/Insert Knee / [id number] Insurance Payer Benefit Plan / Subscriber ID Effective Phone Address T ype Group Dates BC[place] [id number] 2018-Prese [phone] [address] [id number] [address] [place] [address] MEDICARE MEDICARE [id number] 2012-Pres [phone] ATTN CLAI MS Medicare ent 40 [address] [place] [address] Advance Directives For more information, please contact: [phone] Latest Code Status on File Code Status Date Activated Date Inactivated Comments Full Code 03/03/2021 3:38 PM 03/06/2021 6:26 PM All basic and advanced life-sustaining interventions are performed as oj ropriate Code status determined by: Discussion with patient/ legal de cision maker Care Teams Central Office Technician Relationship Specialty Start Date End Date Mario Keith MD PCP - General Internal Medicine 11/28/17 [facility] [address] [place] [address]
--- OUTSIDE RECORDS SUMMARY | 2021-12-29 13:50 | XMS_ITS | Encounter Summary ---
:1955 Author Organization [place] Address [address] [facility] [place] [address] Care Team Providers Name Role Phone Unavailable Primary Care Provider Unavailable Reason for Visit Reason Onset Date Comments Patient Request 10/23/2012 Encounter Details Date Type Department Care Team Description 10/23/2012 Telephone [facility] Weight Alireza White MD Patient Request Management Clinic Ed lex[facility] [address] [place] [place] [place] [address] [address] [place] [id number] [phone] Social History Tobacco Use Types Packs/Day Years [...]
--- OUTSIDE RECORDS SUMMARY | 2021-12-29 13:50 | XMS_ITS | Encounter Summary ---
:1955 Author Organization [place] Address [address] [facility] [place] [address] Care Team Providers Name Role Phone Mario Keith MD Primary Care Provider [phone] Encounter Details Date Type Department Care Team Description 11/28/2017 - Hospital Encounter [facility] [place], Prim keya osteoarthritis 11/29/2017 [facility], [address] [facility] ORTHOPAEDICS [place], [place] [address] [facility] [address] [place] [address] [place], [place] [id number] Social History Tobacco Use Types Packs/Day Years [...] at discharge: Leandro Curiel Home Medication Instructions [id number] Printed on:11/29/17 1430 Medication Information acetaminophen (TYLENOL) [...] be well controlled with oral pain medication Marion Romano PA-C [facility] Maria E Russo MD - 11/29/2017 [...] spent 35 min Maria E Russo MD. [facility] medicine service Selam Overton RT - 11/28/2017 3:13 PM CDT 11/28/17 1512 NPPV Other SpO2 96 % CPAP CPAP Pt. Owned Device Yes;Clean;Functional (does not bleed in oxygen or use humidity, home unit ) CPAP Pressure (cmH2O) (home settings ) CPAP O2 (L/min or FiO2) 21 Chaz [address] [facility] - 11/28/2017 8:08 AM CDT Pharmacy Note - Admission Medication History Pertinent Provider Information: N/A Prior To Admission (VARNISH COOKER) med list completed and updated in EMR. [facility]ARNISH COOKER Med List Medication Sig Note Last Dose [...] 50mg Information source(s): Patient, [facility] records [facility] [place] Patient was asked about OTC/herbal products specifically. VARNISH COOKER med list reflects this. Based on the pharmacist???s assessment, the [facility]ARNISH COOKER med list information appears reliable Allergies were [...] - for htn, dm2 Leandro Curiel, 1955, [facility] Prd Osteoarthritis of knee [M17.10] PCP: Mario Keith MD, Code status: Full Code Extended Emergency Contact Information Primary Emergency Contact: Alisson Curiel [facility] Relation: [id number]-Fjh Secondary Emergency Contact: Ervin Conner [facility] Relation: Child Assessment and Plan Essential hypertension [...] spent 70 min Maria E Russo MD. [facility] medicine service. documented in this encounter Miscellaneous Notes Op Note - Jennifer Arenas MD - 11/28/2017 11:48 AM CDT Operative Report PATIENT: Leandro Curiel DATE OF SURGERY: 11/28/2017 SURGEON Jennifer Arenas MD. AUDIO VISUAL DESIGN ENGINEER Joe Strickland PA-C (Expert AUDREY assist was [...] knee with increasing disability. X-rays have shown [id number] degenerative change in the medial compartment. Has [...] Organization Address City/State/ZIP Code Phon e Number [facility] POCT RESULTS [address] [place] [facility] [address] [address] Glucose by meter POCT (11/29/2017 7:03 AM CDT) athologist Signature GLUCOSE BY 116 mg/dL 11/29/2017 [facility] METER POCT 7:03 AM CDT [facility] POCT RESULTS Comment: Reference Ranges ? Age [...] Organization Address City/State/ZIP Code Phon e Number [facility] POCT RESULTS [address] [facility] [address] [address] Hemoglobin A1c (11/29/2017 6:17 AM CDT) P athologist Signature Hemoglobin A1C 6.0 4.2 - 6.1 11/29/2017 HEALTH % 3:11 PM CDT [facility] Specimen Anatomical Collection Method / Collection Time Recei karin Time (Source) Location / Volume Laterality Blood specimen Venipuncture / 11/29/2017 6:17 11/30/19 18 9:36 (specimen) Unknown AM CDT AM CDT Maria E Russo MD LAB - BLOOD ORDERABLES Performing Organization Address City/State/ZIP Code Phon e Number [place] [address] [address] [facility] (ABNORMAL) CBC with platelets (11/29/2017 6:17 AM CDT) Patholo gist Method Time Signature WBC 7.7 4.0 - 11.0 11/29/2017 [facility] thou/uL 6:27 AM CDT [facility] RBC Count 3.65 (L) 4.40 - 11/29/2017 HEALTH 6.20 6:27 AM CDT [facility] mill/uL [facility] Hemoglobin 10.3 (L) 14.0 - 11/29/2017 HEALTH 18.0 g/dL 6:27 AM T [facility] Hematocrit 30.9 (L) 40.0 - 11/29/2017 HEALTH 54.0 % 6:27 AM T [facility] MCV 85 80 - 100 11/29/2017 HEALTH fL 6:27 AM T [facility] MCH 28.2 27.0 - 11/29/2017 HEALTH 34.0 pg 6:27 AM T [facility] MCHC 33.3 32.0 - 11/29/2017 HEALTH 36.0 g/dL 6:27 AM T [facility] RDW 13.3 11.0 - 11/29/2017 HEALTH 14.5 % 6:27 AM T [facility] Platelet Count 177 140 - 440 11/29/2017 [facility] thou/uL 6:27 AM T [facility] Mean Platelet 9.8 8.5 - 12.5 11/29/2017 [facility] Volume fL 6:27 AM [facility] Specimen Anatomical Collection Method / Collection Time Recei karin Time (Source) Location / Volume Laterality Blood specimen Venipuncture / 11/29/2017 6:17 11/30/19 18 6:22 (specimen) Unknown AM CDT AM CDT Maria E Russo MD LAB - BLOOD ORDERABLES Performing Organization Address City/State/ZIP Code Phon e Number [facility] [place] [address] Lab Daniel Howe [address] [place] [address] LABORATORY (ABNORMAL) Basic metabolic panel (11/29/2017 6:17 AM CDT) Analysis Performed At Patho logist Time Signature Sodium 134 (L) 136 - 145 11/29/2017 HEALTH mmol/L 6:42 AM CDT [facility] Potassium 4.5 3.5 - 5.0 11/29/2017 [facility]ALTH mmol/L 6:42 AM T [facility] Chloride 99 98 - 107 11/29/2017 [facility] mmol/L 6:42 AM T [facility] Carbon Dioxide 27 22 - 31 11/29/2017 [facility]ALTH (CO2) mmol/L 6:42 AM T [facility] Anion Gap 8 5 - 18 11/29/2017 [facility] mmol/L 6:42 AM T [facility] Glucose 122 70 - 125 11/29/2017 [facility] mg/dL 6:42 AM T [facility] Calcium 8.8 8.5 - 10.5 11/29/2017 [facility] mg/dL 6:42 AM [facility] Urea Nitrogen 7 (L) 8 - 22 11/29/2017 [facility] mg/dL 6:42 AM [facility] Creatinine 0.78 0.70 - 11/29/2017 HE[facility] 1.30 mg/dL 6:42 AM T [facility] GFR Estimate If >60 >60 11/29/2017 HEALTH Black mL/min/1.7 6:[address] LABORATORY GFR Estimate >60 >60 11/29/2017 HEALTH mL/min/1.7 6:[address] LABORATORY Specimen Anatomical Collection Method / Collection Time Recei karin Time (Source) Location / Volume Laterality Blood specimen Venipuncture / 11/29/2017 6:17 11/30/19 18 6:22 (specimen) Unknown AM CDT AM CDT Narrative [facility] - 11/29/2017 6:42 AM CDT Fasting Glucose reference range is 70-99 mg/dL per [place] [employer] (ADA) chay dela cruz. Maria E Russo MD LAB - BLOOD ORDERABLES Performing Organization Address City/State/ZIP Code Phon e Number [facility] [place] [address] [employer] [facility] [address] [place] [address] [address] [place] [address] [facility] [address] [place] [address], [facility] Glucose by meter POCT (11/28/2017 9:09 [...] Organization Address City/State/ZIP Code Phon e Number [facility] POCT RESULTS [address] [place] [address] Glucose by meter POCT (11/28/2017 4:59 PM CDT) athologist Signature GLUCOSE BY 105 mg/dL 11/28/2017 [facility] METER POCT 4:59 PM CDT HOSPITAL POCT [...] Organization Address City/State/ZIP Code Phon e Number [facility] POCT RESULTS [address] [employer] [place] [address] Glucose by meter POCT (11/28/2017 11:53 AM CDT) athologist Signature GLUCOSE BY 107 mg/dL 11/28/2017 [facility] METER POCT 11:53 AM CDT [facility] POCT RESULTS Comment: Reference Ranges ? Age [...] Organization Address City/State/ZIP Code Phon e Number [facility] POCT RESULTS [address] [facility] N [address] (ABNORMAL) CBC with platelets (11/28/2017 7:46 AM CDT) [facility] gist Method Time Signature WBC 6.6 4.0 - 11.0 11/28/2017 HE[facility] thou/uL 7:52 AM CDT [facility] RBC Count 3.84 (L) 4.40 - 11/28/2017 HEALTH 6.20 7:52 AM CDT [facility] mill/uL [facility] Hemoglobin 10.9 (L) 14.0 - 11/28/2017 HE[facility] 18.0 g/dL 7:52 AM CDT [facility] Hematocrit 32.4 (L) 40.0 - 11/28/2017 [facility] 54.0 % 7:52 AM CDT [place] [facility] MCV 84 80 - 100 11/28/2017 [facility] fL 7:52 AM CDT [facility] MCH 28.4 27.0 - 11/28/2017 [facility] 34.0 pg 7:52 AM CDT [place] MCHC 33.6 32.0 - 11/28/2017 HE[facility] 36.0 g/dL 7:52 AM CDT [place] [facility] RDW 13.5 11.0 - 11/28/2017 HEALTH 14.5 % 7:52 AM CDT [facility] Platelet Count 221 140 - 440 11/28/2017 [facility] thou/uL 7:52 AM CDT [facility] Mean Platelet 9.9 8.5 - 12.5 11/28/2017 HEALTH Volume fL 7:52 AM CDT [facility] to PhoneK[facility] Specimen Anatomical Collection Method / Collection Time Recei karin Time (Source) Location / Volume Laterality Blood specimen Venipuncture / 11/28/2017 7:46 11/29/19 18 7:50 (specimen) Unknown AM CDT AM CDT Joe Strickland PA-C LAB - BLOOD ORDERABLES Performing Organization Address City/State/ZIP Code Phon e Number [facility] [place] [address] Howe [address] [place] [address] LABORATORY EXTRA GREEN TOP (LITHIUM [...] athologist Signature GLUCOSE BY 106 mg/dL 11/28/2017 [facility] 7:45 AM CDT HOSPITAL [...] Organization Address City/State/ZIP Code Phon e Number [facility] POCT RESULTS [address] [facility] [address] [address] LAB RESULT - HIM SCAN (11/28/2017) Narrative [...] leg documented in this encounter Care Teams M1 Armor Crewman Relationship Specialty Start Date End Date Mario Keith MD PCP - General Internal Medicine 11/28/17 [facility] [address] [place] [address] documented as of this encounter
--- OUTSIDE RECORDS SUMMARY | 2021-12-29 13:50 | XMS_ITS | Encounter Summary ---
:1955 Author Organization [place] Address [address] [place] [address] Care Team Providers Name Role Phone Unavailable Primary Care Provider Unavailable Reason for Visit Reason Onset Date Comments Pt. Information/instruction 10/27/2012 Other Encounter Details Date Type Department Care Team Description 10/27/2012 Telephone Surgery Clinic Gaby Hicks, Pt. Samaria RN Information/instructio [address]; 1st Floor, Clinic [address] [place] [id number] [phone] Social History Tobacco Use Types Packs/Day Years [...] had surgery done with Dr White out [facility] in 2007. 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 Pt has since gained weight back and is wondering about getting the ring surgery done to help him lose weight again. Pt wondering if any of the physicians here will do the ring surgery Pls call pt back to answer questions [phone] Thanks Coordinator talked to patient. Informed patient [...]
--- OUTSIDE RECORDS SUMMARY | 2021-12-29 13:50 | XMS_ITS | Encounter Summary ---
:1955 Author Organization [place] Address [address] [place] [address]. [place] [address] Care Team Providers Name Role Phone Unavailable Primary Care Provider Unavailable Reason for Visit Reason Onset Date Comments Abstract 05/28/2017 Encounter Details Date Type Department Care Team Description 05/28/2017 Documentation Only [facility] Erica Rodriguez bstract Surgical Weight Loss Paras Be A-Aldo [id number] [place] [address] [place] [address] [phone] Social History Tobacco Use Types Packs/Day Years Used Date Never Assessed Sex Assigned at Date Recorded Not on file documented as of this encounter Plan of Treatment Not on filedocumented as of this encounter Visit Diagnoses Not on filedocumented in this encounter
--- OUTSIDE RECORDS SUMMARY | 2021-12-29 13:50 | XMS_ITS | Encounter Summary ---
:1955 Author Organization [place] Address [facility] [place] [address] Care Team Providers Name Role Phone Mario Keith MD Primary Care Provider [phone] Encounter Details Date Type Department Care Team Description 11/28/2017 Surgery - [facility] Ann moreira MD OR [address] [place] [address] [facility] N [phone] [address] [place], [place] [address] Social History Tobacco Use Types [...] on filedocumented in this encounter Care Teams Railroad Track Mechanic Relationship Specialty Start Date End Date Mario Keith MD PCP - General Internal Medicine 11/28/17 [facility] [address] [place] [address] documented as of this encounter
--- OUTSIDE RECORDS SUMMARY | 2021-12-29 13:50 | XMS_ITS | Encounter Summary ---
:1955 Author Organization [facility] Address [facility] [place] [address] Care Team Providers Name Role Phone Mario Keith MD Primary Care Provider [phone] Encounter Details Date Type Department Care Team Description 06/20/[address] [facility] Weight Erica Rodriugez, Management Clinic Ed lexis PA-C [address] [place] [address] [place] [id number] [phone] Social History Tobacco Use Types Packs/Day Years Used Date Never Assessed Sex Assigned at Date Recorded Not on file documented as of this encounter Plan of Treatment Not on filedocumented as of this encounter Visit Diagnoses Not on filedocumented in this encounter Care Teams Decorating Equipment Setter Relationship Specialty Start Date End Date Mario Keith MD PCP - General Internal Medicine 11/28/17 [facility] [address] [place] [address] documented as of this encounter
--- OUTSIDE RECORDS SUMMARY | 2021-12-29 13:50 | XMS_ITS | Encounter Summary ---
:1955 Author Organization [place] Address [facility] [place] [address] Care Team Providers Name Role Phone Mario Keith MD Primary Care Provider Encounter Details Date Type Department Care Team Description 07/20/2020 Telephone [facility] Surgical [facility] [address] [place] [address] Social History Tobacco Use Types [...] call back if he changes his mind. R REROLL TENDER Telephone Encounter - Toni Aponte - 07/20/2020 3:53 PM CST Wero Moser, Pt had bypass 2007 (said at our system, but I don't see here or HE). He's heard that he can get a lap band on top of it... I explained the unlikeliness of that. But also that you might discuss a revision. bmi 40.4 OK to leaved detailed VM R REROLL TENDER documented in this encounter Plan of Treatment Not on filedocumented as of this encounter Visit Diagnoses Not on filedocumented in this encounter Care Teams Textile Technical Officer Relationship Specialty Start Date End Date Mario Keith MD PCP - General Internal Medicine 11/28/17 [facility] [address] [place] [address] documented as of this encounter
--- OUTSIDE RECORDS SUMMARY | 2021-12-29 13:50 | XMS_ITS | Encounter Summary ---
:1955 Author Organization [facility] Address [address] [place] [address] Care Team Providers Name Role Phone Unavailable Primary Care Provider Unavailable Reason for Visit Reason Onset Date Comments Clinic Care Coordination - Initial 02/27/2016 Encounter Details Date Type Department Care Team Description 02/27/2016 Telephone General Surgery Gaby Sanford, Clinic Care [facility] RN Coordination - Initial [address] Floor [address] [place] [address] [place], [place] [phone] (Wo rk) Social History Tobacco Use Types Packs/Day Years Used Date Never Assessed Sex Assigned at Date Recorded Not on file documented as of this encounter Miscellaneous Notes Telephone Encounter - Gaby Sanford, RN - 02/27/2016 3:25 PM CDT Referral from [employer] website. Patient has history of RYGB, would not be a candidate for the intragastric balloon. Encourage patient to set up appt for medical weight management. Contact information given. documented in this encounter Plan of Treatment Not on filedocumented as of this encounter Visit Diagnoses Not on filedocumented in this encounter
--- OUTSIDE RECORDS SUMMARY | 2021-12-29 13:50 | XMS_ITS | Encounter Summary ---
:1955 Author Organization [facility] Address [address] [place] [address] Care Team Providers Name Role Phone Unavailable Primary Care Provider Unavailable Encounter Details Date Type Department Care Team Description 03/08/2009 Historic Notes INTERFACED REPORT Interface, Transcript on, Social History Tobacco Use Types Packs/Day Years Used Date Never Assessed Sex Assigned at Date Recorded Not on file documented as of this encounter Progress Notes Interface, Front Office Assistant - 08/05/2010 5:32 PM CDT Summary of Progress and Discharge Plan - Summary: Pt's therapist appt is at [facility] in [place] and pt needs to be their at 12:30 to check in and Terrie (therapist) will need to make the referal for med management. - Symptoms to Report: thoughts of suicide, dial 911 - Lifestyle Adjustment: Do not use drugs or alcohol Psychiatry Follow-Up - Therapist: Terrie Rodríguez - Therapist Address: [address] [place] [address]. - Therapist Phone Number: - Therapist Appointment 01:00 Date/Time: Provider Information - Discharged From: [facility] - Unit: 30 - Unit - Method: [...] Avoid alcohol. Resources - Resources Crisis Intervention: 346.554.7134 or [phone] (TTY: 145.282.4351); call anytime for help. [employer] [place] [employer] (www.[place].apryl.org):: 017-835-4002 or 441-961-4666. Signatures BRITTNEE HART (Psychotherapist)[Signed 11:59] Authored: Summary of Progress and Discharge Plan, Psychiatry Follow-Up Mariann Sierra (RN)[Signed 11:45] Authored: Summary of Progress and Discharge Plan, Provider Information, Discharge Teaching Checklist, Resources documented in this encounter Plan of Treatment Not on filedocumented as of this encounter Visit Diagnoses Not on filedocumented in this encounter
--- OUTSIDE RECORDS SUMMARY | 2021-12-29 13:50 | XMS_ITS | Encounter Summary ---
:1955 Author Organization [facility] Address [address] [place] [address] Care Team Providers Name Role Phone Mario Keith MD Primary Care Provider [phone] Reason for Referral Consultation (Routine) Specialty Diagnoses / Procedures Referred By Contact Refer red To Contact Senthil Zhao MD [address] [place] [address] Referral ID Status Reason Start Date Expiration Date Visits Requ ested Visits Authorized [facility] Health Therapies & Aides (Routine) Specialty Diagnoses / Procedures Referred By Contact Refer red To Contact Senthil Zhao MD [address] [place] [address] Referral ID Status Reason Start Date Expiration Date Visits Requ ested Visits Authorized [facility] Health Therapies & Aides (Routine) Specialty Diagnoses / Procedures Referred By Contact Refer red To Contact Senthil Zhao MD [address] [place] [address] Referral ID Status Reason Start Date Expiration Date Visits Requ ested Visits Authorized Reason for Visit Reason Comments One-sided Weakness Auth/Cert Specialty Diagnoses / Procedures Referred By Contact Refer red To Contact EMERGENCY MEDICINE Diagnoses Acute right-sided weakness Acute right-sided weakness Emergency Dept [address] [place] [address] Phone: Fax: Referral ID Status Reason Start Date Expiration Date Visits Requ ested Visits Authorized [id number] 1 1 Encounter Details Date Type Department Care Team Description 03/03/2021 - Emergency [facility] Deandre Alvarez Cla, MD [facility] [address] [place], [place] [id number] 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) (Primary Dx); 03/06/2021 [place] [address] Medical Sandeep Nunez DO [address] [place] [address] Acute right-sided weakness; Surgical Romaine Eng MD [address] [place] [address] JUSTIN (generalized anxiety disorder); [address] [facility] [place] [address] Social History Tobacco Use Types [...] Zhao MD - 03/06/2021 3:38 PM CDT [facility] Discharge Summary Hospitalist Date of Admission: 03/03/2021 [...] I, or a nurse practitioner or physician's entry level marketing assistant working with me, had a ocwe-tf-whhi encounter that meets the physician dhoy-fo-iibu encounter requirements with this patient on: 03/05/2021. [...] effort and are for medical reasons or samaritan services or infrequently or of short duration when for other reasons) because: Patient is bedbound due to: fall risk, unsteady gait. Based on the above findings. I certify that this patient is confined to the home and needs intermittent care home care, physical therapy and/or speech therapy. The patient is under my care, and susana initiated the establishment of the plan of care. This patient will be followed by a physician who will periodically review the plan of care. Physician/Provider to provide follow up care: Mario Keith Attending [facility] physician (the Medicare certified [place] provider): Senthil Zhao MD Physician Signature: See [...] next 24-48 hours, Please call them at [phone] documented in this encounter Medications at Time [...] EMG. Praful Gaytan MD (general neurology) pgr [phone] Senthil Zhao MD - 03/05/2021 2:35 PM CDT [facility] Hospitalist Progress Note Assessment & Plan Jett [...] EXAM: MR CERVICAL SPINE W/O CONTRAST LOCATION: [facility] DATE/TIME: 03/05/2021 10:42 AM INDICATION: Cervical radiculopathy. [...] Date: 03/06/2021 Discharge Disposition: Home Discharge Services: moth exterminator/PT/OT MAILROOM CLERK Discharge DME: N/A Discharge Transportation: family or friend will provide Private pay costs discussed: Not applicable Education Provided on the Discharge Plan: yes Persons Notified of Discharge Plans: PT Patient/Family in Agreement with the Plan: yes Handoff Referral Completed: Yes Additional Information: 03/05/21 1100 [facility] ([facility] [phone] fax [phone]) PT able to d.c home today Will [...] Adds Type of Visit Initial PT Evaluation Senior Ui Software Engineer Senior Ui Software Engineer Present no Language Cymraes Living Environment People in home alone Current [...] Environment Comments Pt. lives alone in [facility] with bedroom upstairs and railing on [...] alone Current Living Arrangements other (see comments) ([address] [place] [address]) Home Accessibility stairs to enter home;stairs within home Number of Stairs, Main Entrance 2 Stair Railings, Main Entrance railing on right side (ascending) Number of Stairs, Within Home, Primary greater than 10 stairs Stair Railings, Within Home, Primary railing on right side (ascending) Transportation Anticipated car, drives self;family or friend will provide Living Environment Comments Pt. lives alone in [facility] with bedroom upstairs and railing on [...] of Daily Living BADL Assessment toileting Toileting [place] Level (Toileting) supervision;set up;assist of 2;moderate assist [...] Needs Upon Discharge (OT) gait belt;raised toilet seat;towel sewer;shower chair;tub bench;commode chair Risk & Benefits of [...] R UE strength. Pt. lives alone in [facility] with 2 stairs to enter and [...] from the original note were not included. [facility] Hospitalist Progress Note Admit 03/03/2021 9:44 AM Name: Jett Georges II Provider: Romaine Eng MD, [facility] Date of Service: 03/04/2021 Reason for Stay [...] ?? 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 #Anxiety-depression --Per pharmacy records he is on Zoloft daily, Seroquel 200 mg nightly, lorazepam as needed --Given his grogginess I will resume his Zoloft and GLASS PRODUCTS INSPECTOR Seroquel for now but hold off on [...] Holder PA-C - 03/03/2021 2:41 PM CDT [facility] Admission History and Physical Examination NAME: Jett [...] repeat #Hypertension-blood pressure stable for now, resume GLASS PRODUCTS INSPECTOR lisinopril 20 mg, #Anxiety-depression --Per pharmacy records he is on Zoloft daily, Seroquel 200 mg nightly, lorazepam as needed --Given his grogginess I will resume his Zoloft and GLASS PRODUCTS INSPECTOR Seroquel for now but hold off on [...] ARTHROPLASTY ; Surgeon: Joseph Ramesh MD; Location: [facility]; Service: Orthopedics ??? GASTRIC BYPASS ??? [...] plaque. There is no stenosis or dissection. [place]: There is some mild calcific [...] -- TROPONIN <0.015 -- Carli Holder PA-C [facility] Medicine March 03, 2021 Securely message with the [employer] Console (learn more here) Text page via [facility] Exchange Paging/Directory Associated attestation - Sandeep Nunez DO [...] AM CDTAssociated Order(s): ORTHOPEDIC SURGERY IP CONSULT [facility] Orthopedic Consultation Jett Georges II Age: [...] ARTHROPLASTY ; Surgeon: Joseph Ramesh MD; Location: [facility] [place]; Service: Orthopedics ??? GASTRIC BYPASS ??? [...] plaque. There is no stenosis or dissection. [place]: There is some mild calcific [...] EXAM: MR CERVICAL SPINE W/O CONTRAST LOCATION: [facility] DATE/TIME: 03/05/2021 10:42 AM INDICATION: Cervical radiculopathy. [...] Negative Ketones Urine Negative Negative mg/dL Specific [place] Urine 1.017 1.003 - 1.035 Blood Urine [...] Range Hold Specimen JIC Extra Green Top ([place] Heparin) Tube Status: None Result Value Ref [...] recent exposure or clinical presentation suggests COVID-19. [facility] Laboratories are certified under the Clinical Laboratory [...] Rate 83 BPM Atrial Rate 83 BPM IA Interval 246 ms QRS Duration 122 ms QT 394 ms QTc 462 ms P Sharon 69 degrees R AXIS -72 degrees T Sharon 19 degrees Interpretation ECG Sinus rhythm with 1st degree A-V block with occasional Premature ventricular complexes Left anterior fascicular block Abnormal ECG No previous ECGs available Neurology IP Consult: General (non-stroke/non-ICU); Patient to be seen: Routine - within 24 hours; right arm weakness, palsy?; Supervisor [place] may enter orders: Yes; Requesting provider? Hospitalist [...] ARTHROPLASTY ; Surgeon: Joseph Ramesh MD; Location: [facility]; Service: Orthopedics ??? GASTRIC BYPASS ??? [...] symmetric movements. MOTOR: Tone is difficult to cassandra developer, pain or difficulty relaxing complicate the assessment [...] without Contrast Praful Gaytan MD (general neurology) [facility] [phone] 1. Acute right-sided weakness Care Management / Social Work IP Consult Status: None () Narrative Sandhya Heath, DETECTIVE INVESTIGATOR 03/04/2021 3:22 PM Care Management Initial Consult General Information Assessment completed with: Patient, Type of CM/SW Visit: Initial Assessment Primary Care Provider verified and updated as needed: Readmission within the last 30 days: no previous admission in last 30 days Reason for Consult: discharge planning Communication Assessment Patient's communication style: spoken language (Cymraes or Bilingual) Hearing Difficulty or Deaf: no [...] Gatherings with Friends and Family: ??? Attends Jewish Services: ??? Active Member of Clubs or [...] find to accept referral SW went to [facility] web site.. Called home care agencies but had to navigate through call center support consultant services SW was able to find [facility] [phone] . Requested PT/OT MAILROOM CLERK support for pt. They could provide start of care on Saturday Will fax face sheet and H&P over today and final d.c orders tomorrow Pt stated he will call his son for a ride home tomorrow. 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 Hospitalist (if different from attending physician... Status: None () Narrative Jairo Buckley, AUDREY 03/05/2021 4:01 PM [facility] Neurosurgery Consultation Date of Admission: 03/03/2021 Date [...] with further consultation recommendations. Jairo Buckley PA-C [facility] Neurosurgery [address] [place] [phone] Pager [phone] Code Status Full Code Reason for Consult [...] ARTHROPLASTY ; Surgeon: Joseph Ramesh MD; Location: [facility]; Service: Orthopedics ??? GASTRIC BYPASS ??? [...] Status --------- ------ CBC with platelets and d...[[id number]] Abnormal Final result Please view results for these tests on the individual orders. Extra Tube ([place] Draw) Status: None Narrative The following orders were created for panel order Extra Tube ([place] Draw). Procedure Abnormality Status --------- ------ Extra Blue Top Tube[[id number]] Final result Extra Green Top ([place]...[[id number]] Final result Extra Purple Top Tube[[id number]] Final result Please view results for these [...] CDTAssociated Order(s): SPINE SURGERY ADULT IP CONSULT [facility] Neurosurgery Consultation Date of Admission: 03/03/2021 Date [...] no pain or dysesthesias, no recommendation for ANBAELA. We have also reviewed Neurology's notes, and agree with possibility that there could be a brachial plexus injury, which can be obtained as outpatient. I have discussed the following assessment and plan with Dr. Carcamo, who is in agreement with the initial plan and will follow up with further consultation recommendations. Jairo Buckley PA-C [facility] Neurosurgery [place] [address] Pager [phone] Code Status Full Code Reason for Consult [...] ARTHROPLASTY ; Surgeon: Joseph Ramesh MD; Location: [facility]; Service: Orthopedics ??? GASTRIC BYPASS ??? [...] personally see this patient today. Sandhya Heath, DETECTIVE INVESTIGATOR - 03/04/2021 3:22 PM CDTAssociated Order(s): CARE MANAGEMENT / SOCIAL WORK IP CONSULT Care Management Initial Consult General Information Assessment completed with: Patient, Type of CM/SW Visit: Initial Assessment Primary Care Provider verified and updated as needed: Readmission within the last 30 days: no previous admission in last 30 days Reason for Consult: discharge planning Communication Assessment Patient's communication style: spoken language (Cymraes or Bilingual) Hearing Difficulty or Deaf: no [...] Gatherings with Friends and Family: ??? Attends Jewish Services: ??? Active Member of Clubs or [...] find to accept referral SW went to [facility] web site.. Called home care agencies but had to navigate through call center support consultant services SW was able [facility] [phone] . Requested PT/OT MAILROOM CLERK support for pt. They could provide start [...] ARTHROPLASTY ; Surgeon: Joseph Ramesh MD; Location: [facility]; Service: Orthopedics ??? GASTRIC BYPASS ??? [...] 20 mg, 20 mg, Oral, Daily, Holder, Calri Vogel PA-C, 20 mg at 03/04/[address] ??? [...] symmetric movements. MOTOR: Tone is difficult to cassandra developer, pain or difficulty relaxing complicate the assessment [...] Contrast Praful Gaytan MD (general neurology) pgr [phone] 1. Acute right-sided weakness documented in this encounter ED Notes Bhavesh Lynn RN - 03/03/2021 12:16 PM CDT [facility] ED Nurse Handoff Report Jett Georges II is a 65 year old male ED Chief complaint: One-sided Weakness . ED Diagnosis: Final diagnoses: Acute right-sided weakness Allergies: Allergies Allergen Reactions ??? Zyban [Bupropion Hydrobromide] Hives Code Status: Full Code Activity level - Baseline/Home: Independent. Activity Level - Current: Assist X 1. Lift room needed:No. Bariatric: No Senior Ui Software Engineer Needed: No Isolation: No. Infection: Not Applicable. [...] recent exposure or clinical presentation suggests COVID-19. [facility] Laboratories are certified under the Clinical Laboratory [...] Status --------- ------ CBC with platelets and d...[[id number]] Abnormal Final result Please view results for these tests on the individual orders. EXTRA TUBE Narrative: The following orders were created for panel order Extra Tube ([place] Draw). Procedure Abnormality Status --------- ------ Extra Blue Top Tube[[id number]] Final result Extra Green Top ([place]...[[id number]] Final result Extra Purple Top Tube[[id number]] Final result Please view results for these [...] Unable to fully extend the right wrist. Student Financial Aid Manager strength 5/5 and symmetric bilaterally. Left upper [...] to prior, dated 11/28/2017. Rate 83 bpm. IA interval 246 ms. QRS duration 122 ms. [...] Status --------- ------ CBC with platelets and d...[[id number]] Abnormal Final result Please view results for these tests on the individual orders. EXTRA TUBE Narrative: The following orders were created for panel order Extra Tube ([place] Draw). Procedure Abnormality Status --------- ------ Extra Blue Top Tube[[id number]] Final result Extra Green Top ([place]...[[id number]] Final result Extra Purple Top Tube[[id number]] Final result Please view results for these [...] care of Dr. Nunez. Impression & Plan [facility] Diagnoses: The patient has stroke symptoms: ED [...] hypoglycemia (or hyperglycemia), head or spinal trauma, COMPETENCY EVALUATED NURSE AIDE infection, Toxin ingestion and shock state (e.g. [...] observations and the provider's statements to me. Deandre Alvarez MD 03/03/21 1206 documented in this [...] goal(s). See goals on Care Plan in [facility] electronic health record for goal details. [...] UE strength. Pt. lives alone in [facility] with 2 stairs to enter and [...] from the original note were not included. [facility] OUTPATIENT PHYSICAL THERAPY EVALUATION PLAN OF TREATMENT FOR OUTPATIENT REHABILITATION (COMPLETE FOR INITIAL CLAIMS ONLY) Patient's Last Name, First Name, M.I. Date of : 1955 Jett Georges Provider's Name [facility] Onset Date: 03/03/21 Start of Care Date: 03/04/2021 Type: _X_PT ___OT ___SLP Medical Diagnosis: R-sided weakness PT Diagnosis: Impaired fn mobility Visits from SOC: 1 _ Plan of Treatment/Functional Goals Planned Interventions: bed mobility training, balance training, patient/family education, stair training, strengthening, gait training, neuromuscular re- education, stretching, transfer training Goals: See Physical Therapy Goals on Care Plan in [facility] electronic health record. Therapy Frequency: Daily Predicted Duration of Therapy Intervention: 3 days _ I CERTIFY THE NEED FOR THESE SERVICES FURNISHED UNDER THIS PLAN OF TREATMENT AND WHILE UNDER MY CARE (Physician co-signature of this document indicates review and certification of the therapy plan). , Referring Physician: Sandeep Nunez, DO Initial Assessment See Physical Therapy evaluation dated in [facility] electronic health record. Associated attestation - Romaine Eng MD - 03/04/2021 6:08 PM CDT I CERTIFY THE NEED FOR THESE SERVICES FURNISHED UNDER THIS PLAN OF TREATMENT AND WHILE UNDER MY CARE (Physician co-signature of this document indicates review and certification of the therapy plan). Utilization Review - Nikki Gonzalez MD - 03/04/2021 12:10 PM CDT [facility] Admission Status; Secondary Review Determination Admission Date: [...] Sincerely, Nikki Gonzalez MD MPH Utilization Review [facility]. Plan of Care - Amelia Kiran RN [...] RN Pharmacy-Admission Medication History - Varinder Daniels [facility] - 03/03/2021 2:10 PM CDT Admission medication history interview status for this patient is complete. See [facility] admission navigator for allergy information, prior to admission medications and immunization status. Medication history interview done, indicate source(s): Patient Medication history resources (including written lists, pill bottles, clinic record):[facility]: [id number] [place], [place] - [address] LEVI ANDUJAR Changes made to GLASS PRODUCTS INSPECTOR medication list: Added: all meds Changed: trazodone 75 mg TID -> at bedtime Reported as Not Taking: none Removed: none Actions taken by pharmacist (provider contacted, etc):left sticky note for provider Additional medication history information: - Patient may have confused trazodone with tramadol and took about 10 tramadol tablets in total yesterday. - The current medication list was completed to the best of verse writer's ability using available resources (e.g. [facility] dispensing records, Care Everywhere, chart review notes, [...] Code Phon e Number [place] [address] Care Lab [address] Lab (1st floor, no room number) [...] in clude each brachial plexus in the opygi-fe-ydgi. JOHN HAWTHORNE MD SYSTEM ID: ??[id number] Narrative 03/06/2021 2:48 PM CDT MRI OF [...] in clude each brachial plexus in the cjbvg-tx-bzjs. JOHN HAWTHORNE MD SYSTEM ID: [id number] Veronica Murrell PA-C IMG MRI ORDERABLES (ABNORMAL) [...] Code Phon e [place] [address] Care Lab [address] Lab (1st floor, no room number) [...] Code Phon e [place] [address] Care Lab [address] Lab (1st floor, no room number) [...] Code Phon e [place] [address] Care Lab [address] Lab (1st floor, no room number) [...] City/State/ZIP Code [place] [address] Care Lab [address] Lab [...] EXAM: MR CERVICAL SPINE W/O CONTRAST LOCATION: [facility] DATE/TIME: 03/05/2021 10:42 AM INDICATION: Cervical radiculopathy. [...] EXAM: MR CERVICAL SPINE W/O CONTRAST LOCATION: [facility] DATE/TIME: 03/05/2021 10:42 AM INDICATION: Cervical radiculopathy. [...] 7:27 Unknown CDT AM CDT Sandeep HANNAH [employer] POCT Performing Organization Address City/[facility]/ZIP [place] [address] Care Lab [address] Lab (1st floor, no room number) [...] LAB - BEAKER POCT Performing Organization Address City/[facility]/ZIP [place] [address] Care Lab [address] Lab (1st floor, no room number) [...] LAB - BEAKER POCT Performing Organization Address City/[facility]/ZIP Code [place] [address] Care Lab [address] Lab (1st floor, no room number) [...] LAB - BEAKER POCT Performing Organization Address City/[facility]/ZIP Code [place] [address] Care Lab [address] Lab (1st floor, no room number) [...] City/State/ZIP Code [place] [address] Care Lab [address] Lab (1st floor, no room number) [...] City/State/ZIP Code [place] [address] Care Lab [address] Lab (1st floor, no room number) [...] City/State/ZIP Code [place] [address] Care Lab [address] Lab (1st floor, no room number) (ABNORMAL) Basic metabolic panel (03/04/2021 8:02 AM CDT) [facility] Method Time Signature Sodium 132 (L) 133 [...] LAB - BLOOD ORDERABLES Performing Organization Address City/[facility]/ZIP Code [place] [address] Care Lab [address] Lab (1st floor, no room number) [...] LAB - BEAKER POCT Performing Organization Address City/[facility]/ZIP [place] [address] Care Lab [address] Lab (1st floor, no room number) [...] LAB - BEAKER POCT Performing Organization Address City/[facility]/ZIP [place] [address] Care Lab [address] Lab (1st floor, no room number) [...] LAB - BLOOD ORDERABLES Performing Organization Address City/[facility]/ZIP Code [place] [address] Care Lab [address] Lab (1st floor, no room number) [...] LAB - BLOOD ORDERABLES Performing Organization Address City/[facility]/ZIP Code [place] [address] Care Lab [address] Lab (1st floor, no room number) [...] LAB - BEAKER POCT Performing Organization Address City/[facility]/ZIP Code Phon e Number [place] [address] Care Lab [address] Lab (1st floor, no room number) [...] Code Phon e Number [place] [address] Care Lab [address] Lab (1st floor, no room number) [...] LAB - BLOOD ORDERABLES Performing Organization Address [facility]/ZIP Code Ph[place] [phone] Care Lab [address] Lab (1st floor, no room number) [...] Address City/State/ZIP Code [place] [address] Care Lab [address] Lab (1st floor, no room number) [...] LAB - BLOOD ORDERABLES Performing Organization Address City/[facility]/[place] [address] Care Lab [address] Lab (1st floor, no room number) [...] exposure or clinical presentation sugges ts COVID-19. ??[facility] Laboratories are certified under the Clinical Laborat ory Improvement Amendments of 1988 (CLIA-88) as qualified to perform moderate and/or high complexity laboratory testing. Deandre Alvarez MD LAB - MICRO GENERAL ORDERABL ES Performing Organization Address City/State/ZIP Code [place] [phone] Care Lab [address] [facility] Lab (1st floor, no room number) (ABNORMAL) UA with Microscopic reflex to Culture (03/03/2021 11:03 AM CDT) [facility] Method Time Signature Color Urine Light Colorless, 03/03/2021 LABORATORY Yellow Straw, 11:28 AM Light CDT Yellow, Yellow Appearance Urine Clear Clear 03/03/2021 LABORATOR Y 11:28 AM CDT Glucose Urine 150 (A) Negative 03/03/2021 LABORATORY mg/dL 11:28 AM CDT Bilirubin Urine Negative Negative 03/03/2021 LABORATORY 11:28 AM CDT Ketones Urine Negative Negative 03/03/2021 LABORATORY mg/dL 11:28 AM CDT Specific [place] 1.017 1.003 - 03/03/2021 LABORATOR Y Urine [...] Address City/State/ZIP Code [place] [phone] Care Lab [address] Lab (1st floor, no room number) [...] plaque. There is no stenosis or dissection. [place]: There is some mild tracee [...] plaque. There is no stenosis or dissection. [place]: There is some mild tracee [...] RESULTS Atrial Rate 83 BPM RADIOLOGY RESULTS IA Interval 246 ms RADIOLOGY RESULTS QRS Duration 122 ms RADIOLOGY RESULTS QT 394 ms RADIOLOGY RESULTS QTc 462 ms RADIOLOGY RESULTS P Sharon 69 degrees RADIOLOGY RESULTS R AXIS -72 degrees RADIOLOGY RESULTS T Sharon 19 degrees RADIOLOGY RESULTS Interpretation Sinus rhythm [...] Organization Address City/State/[place] [phone] Care Lab [address] Lab (1st floor, no room number) [...] Organization Address City/State/[place] [phone] Care Lab [address] Lab (1st floor, no room number) [...] Organization Address City/State/[place] [phone] Care Lab [address] Lab (1st floor, no room number) [...] Organization Address City/State/[place] [address] Care Lab [address] Lab (1st floor, no room number) [...] Organization Address City/State/[place] [address] Care Lab [address] Lab (1st floor, no room number) Extra Green Top ([place] Heparin) Tube (03/03/2021 9:58 AM CDT) athologist [...] Organization Address City/State/[place] [address] Care Lab [address] Lab (1st floor, no room number) [...] Organization Address City/State/[place] [address] Care Lab [address] Lab (1st floor, no room number) (ABNORMAL) CBC with platelets and differential (03/03/2021 9:58 AM CDT) [facility] Method Time Signature WBC Count 13.3 (H) [...] LAB - BLOOD ORDERABLES Performing Organization Address City/[facility]/ZIP Code [place] [address] Care Lab [address] Lab (1st floor, no room number) [...] LAB - BLOOD ORDERABLES Performing Organization Address City/[facility]/ZIP Code [place] [address] Care Lab [address] Lab (1st floor, no room number) [...] LAB - BLOOD ORDERABLES Performing Organization Address City/[facility]/ZIP Code [place] [address] Care Lab [address] Lab (1st floor, no room number) [...] LAB - BLOOD ORDERABLES Performing Organization Address City/[facility]/ZIP Code [place] [address] Care [address] Lab (1st floor, no room number) [...] Address City/State/ZIP Code [place] [phone] Care Lab [address] Lab (1st floor, no room number) [...] Address City/State/ZIP [place] [address] Care Lab [address] Lab [...] 1914, Administer intramuscular if an intravenous ro [place] is not available and notify provider when [...] 1914, Administer intramuscular if an intravenous ro [place] is not available and notify provider when [...] 300 mg 0805 (Given - Provider: Bhavesh Lynn [...] stools.
documented in this encounter Care Teams Reading Recovery Teacher Relationship Specialty Start Date End Date Mario Keith MD PCP - General Internal Medicine 11/28/17 [facility] [address] [place] [address] documented as of this encounter
--- OUTSIDE RECORDS SUMMARY | 2021-12-29 13:51 | XMS_ITS | Encounter Summary ---
:1955 Author Organization [place] Address [facility] [place] [address] Care Team Providers Name Role Phone Unavailable Primary Care Provider Unavailable Encounter Details Date Type Department Care Team Description 03/04/2009 Consultation [facility] [address] [facility] [place], [place] [phone] (Wo rk) Social History Tobacco Use Types [...] extremities intact grossly in all 4 extremities, business support specialist is 5/5 bilaterally. LABORATORY DATA: His comprehensive metabolic battery was normal with the exception of glucose whichis elevated to 210. His TSH was 2.8. His GGT was 48. Records from [facility] indicated his CBC was normal, and urine [...] dougie Name: JETT GEORGES MRN: [id number] Account: [id number] : 1955 Consult Date: 03/04/2009 Document: [id number] cc: Shukri Becker DO documented in this encounter Plan of Treatment Not on filedocumented as of this encounter Visit Diagnoses Not on filedocumented in this encounter
--- OUTSIDE RECORDS SUMMARY | 2021-12-29 13:51 | XMS_ITS | Encounter Summary ---
:1955 Author Organization [place] Address [facility] [place] [address] Care Team Providers Name Role Phone Unavailable Primary Care Provider Unavailable Encounter Details Date Type Department Care Team Description 03/07/2009 Historic Notes INTERFACED REPORT David Minaya MD [facility] [address] [facility] [place], [place] [address] (Wo rk) Social History Tobacco Use Types Packs/Day Years Used Date Never Assessed Sex Assigned at Date Recorded Not on file documented as of this encounter Progress Notes Graciela Mniaya MD - 08/05/2010 5:36 PM CDT Interval [...]
--- OUTSIDE RECORDS SUMMARY | 2021-12-29 13:51 | XMS_ITS | Encounter Summary ---
:1955 Author Organization [place] Address [address] [place] [address] Care Team Providers Name Role Phone Unavailable Primary Care Provider Unavailable Encounter Details Date Type Department Care Team Description 03/07/2009 Historic Notes INTERFACED REPORT Blas Becker DO [facility] [address] [facility], [facility] [address] [place] [address] (Wo rk) Social History Tobacco Use Types Packs/Day Years Used Date Never Assessed Sex Assigned at Date Recorded Not on file documented as of this encounter Progress Notes Interface, Laborer Shellfish Processing - 08/05/2010 5:36 PM CDT Problem List [...]
--- OUTSIDE RECORDS SUMMARY | 2021-12-29 13:51 | XMS_ITS | Encounter Summary ---
:1955 Author Organization [place] Address [address] [place] [address] Care Team Providers Name Role Phone Unavailable Primary Care Provider Unavailable Encounter Details Date Type Department Care Team Description 10/20/2007 Historic Results INTERFACED REPORT Alireza White MD [address] [facility] [address] [place], [place] [address] (Wo rk) Social History Tobacco Use Types [...] LAB - BLOOD ORDERABLES Performing Organization Address [facility] Phon e Number MISYS (ABNORMAL) Glucose by meter (10/20/2007 1:37 PM CDT) P athologist Signature Glucose 136 (H) 60 - 99 MISYS mg/dL Specimen Anatomical Collection Method Collection Time Receive d Time (Source) Location / / Volume Laterality 10/20/2007 1:37 PM 8 6:15 CDT AM CDT Alireza White MD LAB - BEAKER POCT Performing Organization Address [facility] Phon e Number MISYS (ABNORMAL) Glucose (10/20/2007 6:36 AM CDT) P athologist Signature Glucose 125 (H) 60 - 99 MISYS mg/dL Specimen Anatomical Collection Method Collection Time Receive d Time (Source) Location / / Volume Laterality 10/20/2007 6:36 AM 8 6:39 CDT AM CDT Alireza White MD LAB - BLOOD ORDERABLES Performing Organization Address [facility] Phon e Number MISYS Hemoglobin (10/20/2007 6:36 AM CDT) P athologist Signature Hemoglobin 14.0 13.3 - 17.7 MISYS g/dL Specimen Anatomical Collection Method Collection Time Receive d Time (Source) Location / / Volume Laterality 10/20/2007 6:36 AM 8 6:39 CDT AM CDT Alireza White MD LAB - BLOOD ORDERABLES Performing Organization Address [facility] Phon e Number MISYS documented in this encounter Visit Diagnoses Not on filedocumented in this encounter
--- OUTSIDE RECORDS SUMMARY | 2021-12-29 13:51 | XMS_ITS | Encounter Summary ---
:1955 Author Organization [place] Address [address] [place] [address] Care Team Providers Name Role Phone Unavailable Primary Care Provider Unavailable Encounter Details Date Type Department Care Team Description 03/07/2009 Historic Results [facility] [address] [facility] [place] [address] (Wo rk) Social History Tobacco Use Types [...]
--- OUTSIDE RECORDS SUMMARY | 2021-12-29 13:51 | XMS_ITS | Encounter Summary ---
:1955 Author Organization [place] Address [address] [place] [address] Care Team Providers Name Role Phone Unavailable Primary Care Provider Unavailable Encounter Details Date Type Department Care Team Description 03/03/2009 Historic Notes INTERFACED REPORT Interface, Transcript on, Social History Tobacco Use Types Packs/Day Years Used Date Never Assessed Sex Assigned at Date Recorded Not on file documented as of this encounter Progress Notes Interface, Chief Executive Or Managing Director - 08/05/2010 5:47 PM CDT General Information [...] - Second Staff (name) Bud Ruano - parts counter sales person #1: Leandro Curiel - Relationship to Father patient #1: - Phone 1: [phone] - Patient's spoken language; Albanian or Bilingual communication style Advance Directive - [...] few days Hospitalization - Primary Care Mario Kelly--[facility] Physician - Do you have none restrictions [...] - Do you have yes, 7 yo --non-long term parent but close to responsibility for his [...]
--- OUTSIDE RECORDS SUMMARY | 2021-12-29 13:51 | XMS_ITS | Encounter Summary ---
:1955 Author Organization [place] Address [address] [facility] [place] [address] Care Team Providers Name Role Phone Unavailable Primary Care Provider Unavailable Encounter Details Date Type Department Care Team Description 04/07/2007 Consultation [facility] Madhu Toney MD [address] [facility] [address] [place] [address] (Wo rk) Social History Tobacco Use Types Packs/Day Years Used Date Never Assessed Sex Assigned at Date Recorded Not on file documented as of this encounter Progress Notes Madhu Toney - 05/20/2007 9:06 PM GREENSMAN FINAL CHIEF COMPLAINT: Sleep apnea, reflux, hyperlipidemia, [...] include diet pills over 30 years ago, [id number] diets, exercise. His attempts for weight loss, [...] one who had it done down in [place]. The patient is setting up his appointment [...] kathi Name: JETT GEORGES MRN: [id number] Account: [id number] : 1955 Consult Date: 04/07/2007 Document: [id number] NSMAN documented in this encounter Plan of Treatment Not on filedocumented as of this encounter Visit Diagnoses Not on filedocumented in this encounter
--- OUTSIDE RECORDS SUMMARY | 2021-12-29 13:51 | XMS_ITS | Encounter Summary ---
:1955 Author Organization [place] Address [address] [place] [address] Care Team Providers Name Role Phone Unavailable Primary Care Provider Unavailable Encounter Details Date Type Department Care Team Description 10/22/2007 Historic Notes INTERFACED REPORT Interface, Transcript on, Social History Tobacco Use Types Packs/Day Years Used Date Never Assessed Sex Assigned at Date Recorded Not on file documented as of this encounter Progress Notes Interface, Supervisor Insulation - 08/06/2010 9:23 PM CDT Discharge Planning - Discharge From: [facility] - Patient Care Unit: Station [...] Dr. White call: - Phone number of [facility] [phone] patient should call: Other Discharge Education, Materials, [...] and Instructions, Follow Up Care Interface, Supervisor Insulation - 08/06/2010 9:23 PM CDT BARIATRIC SURGERY [...]
--- OUTSIDE RECORDS SUMMARY | 2021-12-29 13:51 | XMS_ITS | Encounter Summary ---
:1955 Author Organization [place] Address [facility] [place] [address] Care Team Providers Name Role Phone Unavailable Primary Care Provider Unavailable Encounter Details Date Type Department Care Team Description 08/25/2007 Historic Notes INTERFACED REPORT Interface, Transcript on, Social History Tobacco Use Types Packs/Day Years Used Date Never Assessed Sex Assigned at Date Recorded Not on file documented as of this encounter Progress Notes Interface, Dredge Boat Engineer - 08/07/2010 12:05 AM CDT BARIATRIC FOLLOW [...]
--- OUTSIDE RECORDS SUMMARY | 2021-12-29 13:51 | XMS_ITS | Encounter Summary ---
:1955 Author Organization [place] Address [address] [place] [address] Care Team Providers Name Role Phone Unavailable Primary Care Provider Unavailable Encounter Details Date Type Department Care Team Description 03/07/2009 Historic Notes INTERFACED REPORT Interface, Transcript onMD Social History Tobacco Use Types Packs/Day Years Used Date Never Assessed Sex Assigned at Date Recorded Not on file documented as of this encounter Progress Notes Interface, Medical Administrator - 08/05/2010 5:35 PM CDT General Information - Has NOT attended OT 13:00 as of: Plan - Plan: Continue to invite to groups to assess. Signatures ESTER DIGGS (MILLER)[Signed 12:38] Authored: General Information, Plan documented in this encounter Plan of Treatment Not on filedocumented as of this encounter Visit Diagnoses Not on filedocumented in this encounter
--- OUTSIDE RECORDS SUMMARY | 2021-12-29 13:51 | XMS_ITS | Encounter Summary ---
:1955 Author Organization [place] Address [address] [place] [address] Care Team Providers Name Role Phone Unavailable Primary Care Provider Unavailable Encounter Details Date Type Department Care Team Description 10/21/2007 Historic Results INTERFACED REPORT Alireza White MD [address] [facility] [address] [place], [place] [address] (Wo rk) Social History Tobacco Use Types [...] SANTOS - BELELO POCT Performing Organization Address [facility] Phon e Number MISYS (ABNORMAL) Glucose by meter (10/21/2007 6:04 PM CDT) P athologist Signature Glucose 111 (H) 60 - 99 MISYS mg/dL Specimen Anatomical Collection Method Collection Time Receive d Time (Source) Location / / Volume Laterality 10/21/2007 6:04 PM 8 CDT 10:46 PM CDT Alireza SANTOS - BELELO POCT Performing Organization Address [facility] Phon e Number MISYS (ABNORMAL) Glucose by meter (10/21/2007 11:35 AM CDT) P athologist Signature Glucose 134 (H) 60 - 99 MISYS mg/dL Specimen Anatomical Collection Method Collection Time Receive d Time (Source) Location / / Volume Laterality 10/21/2007 11:35 10/21/2007 AM CDT 10:46 PM CDT Alireza SANTOS - ENEDINA POCT Performing Organization Address [facility] Phon e Number MISYS (ABNORMAL) Hemoglobin (10/21/2007 10:05 AM CDT) P athologist Signature Hemoglobin 12.1 (L) 13.3 - 17.7 MISYS g/dL Specimen (Source) Anatomical Collection Method Collection Time Re ceived Time Location / / Volume Laterality 10/21/2007 10:05 10/21/2007 AM CDT Kalpana Ram PA-C LAB - BLOOD ORDERABLES Performing Organization Address City/[facility] Phon e Number MISYS (ABNORMAL) Electrolyte panel [...] LAB - BEAKER POCT Performing Organization Address City/State/[facility] Code Phon e Number MISYS documented in this encounter Visit Diagnoses Not on filedocumented in this encounter
--- OUTSIDE RECORDS SUMMARY | 2021-12-29 13:51 | XMS_ITS | Encounter Summary ---
:1955 Author Organization [place] Address [facility] [place] [address] Care Team Providers Name Role Phone Unavailable Primary Care Provider Unavailable Encounter Details Date Type Department Care Team Description 11/12/2007 Historic Notes INTERFACED REPORT Interface, Transcript onMD Social History Tobacco Use Types Packs/Day Years Used Date Never Assessed Sex Assigned at Date Recorded Not on file documented as of this encounter Progress Notes Interface, House Builder - 08/06/2010 8:24 PM CDT BARIATRIC PROGRESS [...]
--- OUTSIDE RECORDS SUMMARY | 2021-12-29 13:51 | XMS_ITS | Encounter Summary ---
:1955 Author Organization [place] Address [address] [place] [address] Care Team Providers Name Role Phone Unavailable Primary Care Provider Unavailable Encounter Details Date Type Department Care Team Description 03/05/2009 Historic Notes INTERFACED REPORT David Minaya MD [facility] [address] [facility] [place], [place] [address] (Wo rk) Social History Tobacco Use Types [...]
--- OUTSIDE RECORDS SUMMARY | 2021-12-29 13:51 | XMS_ITS | Encounter Summary ---
:1955 Author Organization [place] Address [address] [place] [address] Care Team Providers Name Role Phone Unavailable Primary Care Provider Unavailable Encounter Details Date Type Department Care Team Description 10/20/2007 Historic Notes INTERFACED REPORT Interface, Transcript onMD Social History Tobacco Use Types Packs/Day Years Used Date Never Assessed Sex Assigned at Date Recorded Not on file documented as of this encounter Progress Notes Interface, Retail Parts Professional - 08/06/2010 9:30 PM CDT General Information - How to be addressed Leandro - field contact person to Gabriella Foster (sister) notify: - Phone 1: [phone] - field contact person #2: Leandro Curiel (father) - Phone 1: [phone] - field contact person #3: Nusrat KieraGueroAime (friend) - Phone 1: [phone] - Patient's Spoken Language, Afghan communication style Advance Directive - Do you [...] Considerations - Developmental None Learning Considerations - Zoroastrian Learning None Considerations Activity-Exercise/Self Care - Ambulation [...] life Values/Beliefs/Spiritual Care - F: Catherine: Does Anabaptism culture/spirituality/ roman catholic play an important part in your life? - Would you like Does not wish to have anyone contacted pastoral care/clergy/private wealth advisor notified? Mutuality/Individual Preferences - What information [...] Tolerance, Values/Beliefs/Spiritual Care, Mut uality/Individual Preferences Interface, Retail Parts Professional - 08/06/2010 9:27 PM CDT Bariatric Consult [...]
--- OUTSIDE RECORDS SUMMARY | 2021-12-29 13:51 | XMS_ITS | Encounter Summary ---
:1955 Author Organization [place] Address [address] [place] [address] Care Team Providers Name Role Phone Unavailable Primary Care Provider Unavailable Encounter Details Date Type Department Care Team Description 03/05/2009 Historic Results [facility]ukri BeckerFormerly [facility] [address] [facility] [place] [address] (Wo rk) Social History Tobacco Use Types [...]
--- OUTSIDE RECORDS SUMMARY | 2021-12-29 13:51 | XMS_ITS | Encounter Summary ---
:1955 Author Organization [place] Address [facility] [place] [address] Care Team Providers Name Role Phone Unavailable Primary Care Provider Unavailable Encounter Details Date Type Department Care Team Description 03/03/2009 Historic Etymology Teacher [facility] Stewart DO [facility] [address] [facility] [place] [address] (Wo rk) Social History Tobacco Use Types Packs/Day Years Used Date Never Assessed Sex Assigned at Date Recorded Not on file documented as of this encounter Progress Notes Interface, Etymology Teacher - 04/24/2011 7:16 AM ADJUNCT MATHEMATICS INSTRUCTOR FINAL CHIEF COMPLAINT: My family was concerned about me. HISTORY OF PRESENT ILLNESS: Jett Georges is a 53-year-old white male who presented to [facility] [place], secondary to increased depression. The patient also states that he was hoping to come into the hospital so he could get on disability. Patient does report a 3-year history of depression and anxiety. He states that it all started when he stopped smoking. He states that he recently talked to a wet washer machine and the wet washer machine has convinced him that it was all [...] patient states that he grew up in [place], [place]. He did graduate from high school. [...] coordination are all within normal limits. DIAGNOSES: [place] I: Major depressive disorder, recurrent, severe without psychotic features. Benzodiazepine dependency and possible alcohol abuse. [place] II: Deferred. [place] III: As per Internal Medicine. [place] IV: Poor insight into his mental health issues. [place] V: GAF: 40. PLAN AND RECOMMENDATIONS: At this time will adjust his antidepressant medications. Will take him off his Ativan with a phenobarbital taper. Will use Seroquel to help control his anxiety. Will get the patient connected with outpatient psychiatry and therapy. Electronically signed on 03/30/2009 22:52 by BLAS CATES DO MT: niecy Name: JETT GEORGES Account: [id number] : 1955 Admitted: [id number] Document: [id number] NCT MATHEMATICS INSTRUCTOR documented in this encounter Plan of Treatment Not on filedocumented as of this encounter Visit Diagnoses Not on filedocumented in this encounter
--- OUTSIDE RECORDS SUMMARY | 2021-12-29 13:51 | XMS_ITS | Encounter Summary ---
:1955 Author Organization [place] Address [address] [place] [address] Care Team Providers Name Role Phone Unavailable Primary Care Provider Unavailable Encounter Details Date Type Department Care Team Description 03/04/2009 Historic Notes INTERFACED REPORT Interface, Transcript onMD Social History Tobacco Use Types Packs/Day Years Used Date Never Assessed Sex Assigned at Date Recorded Not on file documented as of this encounter Progress Notes Interface, Comb Fixer - 08/05/2010 5:43 PM CDT General Information - Has NOT attended OT 14:00 as of: Plan - Plan: Encourage attendance and participation. ALISHA Vieyra (OTR)[Signed 15:20] Authored: General Information, Plan documented in this encounter Plan of Treatment Not on filedocumented as of this encounter Visit Diagnoses Not on filedocumented in this encounter
--- OUTSIDE RECORDS SUMMARY | 2021-12-29 13:51 | XMS_ITS | Encounter Summary ---
:1955 Author Organization [place] Address [address] [place] [address] Care Team Providers Name Role Phone Unavailable Primary Care Provider Unavailable Encounter Details Date Type Department Care Team Description 03/04/2009 Historic Notes INTERFACED REPORT David Minaya MD [facility] [address] [facility] [facility] [address] (Wo rk) Social History Tobacco Use Types Packs/Day Years Used Date Never Assessed Sex Assigned at Date Recorded Not on file documented as of this encounter Progress Notes Graciela Minaya MD - 08/05/2010 5:44 PM CDT ATTENDING PHYSICIAN - Attending Note: I examined the patient and discussed the case with the physician assistant professor of physics student who is severing as a scribe [...]
--- OUTSIDE RECORDS SUMMARY | 2021-12-29 13:51 | XMS_ITS | Encounter Summary ---
:1955 Author Organization [place] Address [facility] [place] [address] Care Team Providers Name Role Phone Unavailable Primary Care Provider Unavailable Encounter Details Date Type Department Care Team Description 10/20/2007 Operative Report [facility] Em Merida MD (Sanforizer) [address] Results [address] [place] [address] Social History Tobacco Use Types Packs/Day Years Used Date Never Assessed Sex Assigned at Date Recorded Not on file documented as of this encounter Progress Notes Em Merida - 10/27/2007 10:29 PM CDT FINAL 1st Pocket Operator: Kalpana Becker PA-C PREOPERATIVE DIAGNOSIS: 1. Morbid [...] kera Name: JETT GEORGES MRN: [id number] Account: [id number] : 1955 Procedure Date: 10/20/2007 Document: [id number] documented in this encounter Plan of Treatment Not on filedocumented as of this encounter Visit Diagnoses Not on filedocumented in this encounter
--- OUTSIDE RECORDS SUMMARY | 2021-12-29 13:51 | XMS_ITS | Encounter Summary ---
:1955 Author Organization [place] Address [address] [place] [address] Care Team Providers Name Role Phone Unavailable Primary Care Provider Unavailable Encounter Details Date Type Department Care Team Description 03/06/2009 Historic Results [facility] [address] [facility] [place] [address] (Wo rk) Social History Tobacco Use Types [...]
--- OUTSIDE RECORDS SUMMARY | 2021-12-29 13:51 | XMS_ITS | Encounter Summary ---
:1955 Author Organization [place] Address [address] [place] [address] Care Team Providers Name Role Phone Unavailable Primary Care Provider Unavailable Encounter Details Date Type Department Care Team Description 03/04/2009 Historic Results [facility] EugenioShukri [facility] [address] [facility], [address] [place] [address] (Wo rk) Social History Tobacco Use Types [...] LAB - BLOOD ORDERABLES Performing Organization Address City/[facility] Code Phon e Number MISYS Vitamin B12 [...]
--- OUTSIDE RECORDS SUMMARY | 2021-12-29 13:51 | XMS_ITS | Encounter Summary ---
:1955 Author Organization [place] Address [address] [place] [address] Care Team Providers Name Role Phone Unavailable Primary Care Provider Unavailable Encounter Details Date Type Department Care Team Description 10/21/2007 Results Only [facility] Kalpana Ram, [facility] PA-C Results SURGICAL CONSULT [facility] CARL [address] [facility] [address] [place], [place] [address] (Wo rk) Social History Tobacco Use Types [...]
--- OUTSIDE RECORDS SUMMARY | 2021-12-29 13:51 | XMS_ITS | Encounter Summary ---
:1955 Author Organization [place] Address [facility] [place] [address] Care Team Providers Name Role Phone Unavailable Primary Care Provider Unavailable Encounter Details Date Type Department Care Team Description 03/03/2009 Discharge Summary [facility] Blas Cates, (Contact Person) [facility] [address] [facility] [place] [address] (Wo rk) Social History Tobacco Use Types Packs/Day Years Used Date Never Assessed Sex Assigned at Date Recorded Not on file documented as of this encounter Progress Notes Interface, Contact Person - 03/30/2009 10:58 PM BOX PACKER FINAL DISCHARGE DIAGNOSES: AXIS I: 1. Major [...] DO MT: SONYA Name: JETT GEORGES Account: [id number] : 1955 Admit Date: [id number] Discharge Date: 03/08/2009 Document: [id number] PACKER documented in this encounter Plan of Treatment Not on filedocumented as of this encounter Visit Diagnoses Not on filedocumented in this encounter
--- OUTSIDE RECORDS SUMMARY | 2021-12-29 13:51 | XMS_ITS | Encounter Summary ---
:1955 Author Organization [place] Address [address] [place] [address] Care Team Providers Name Role Phone Unavailable Primary Care Provider Unavailable Encounter Details Date Type Department Care Team Description 03/08/2009 Historic Results [facility] [address] [facility] [place] [address] (Wo rk) Social History Tobacco Use Types [...]
== END 2021-12-29 13:55 | disposition home or self-care (01) ==
PROVIDERS: Emergency Provider Family Medicine; PCP Internal Medicine
DX: I82.401 Acute embolism and thrombosis of unspecified deep veins of right lower extremity (principal)
CPT/HCPCS: 99282; 99283

== ENCOUNTER 2022-01-01 08:48 | Emergency (ER) | payer MEDICARE, BC, SELFPAY ==
[2022-01-01 08:59] VITALS: BP 120/58; PULSE 73; RESP 18; TEMP 36.3; O2SAT 95; BMI 41.6
--- NOTE | 2022-01-01 09:12 | ED.GENADULT ---
HPI - General Adult General Time Seen by Provider: 09:12 Date Seen: 01/01/22 Chief complaint: Neuro Symptoms/Altered Deficit Stated complaint: Slurred speech Time Seen by Provider: 01/01/22 09:04 Source: patient Mode of arrival: EMS Limitations: no limitations History of Present Illness HPI narrative: Patient is a 66 year white male who is apparently on disability, watches TV most of the day, had a recent diagnosis of a right calf clot DVT for which he started on Eliquis. He reports he has been taking his Eliquis regularly. He notices some bruising in his calf and pain. The patient denies shortness of breath but apparently woke up today and had some difficulty speaking. He denies alcohol or drug use, he feels like he did not have much trouble and he feels fine now. Family member called the 911, and he was brought to the ER, family wanted him to go to a ?better Hospital ?but Leandro decided he wanted to come here. He denies chest pain denies shortness of breath, denies any focal weakness, or other neurologic complaints. Related Data Home Medications Medication Instructions Recorded Confirmed aspirin 81 mg tablet,delayed 81 mg PO QDAY 11/27/21 11/27/21 release lisinopril 20 mg tablet 20 mg PO QDAY 11/27/21 11/27/21 lorazepam 1 mg tablet 1 mg PO QDAY 11/27/21 11/27/21 meloxicam 15 mg tablet 15 mg PO QDAY 11/27/21 11/27/21 metformin 500 mg tablet 1,000 mg PO BID 11/27/21 11/27/21 omeprazole 40 mg capsule,delayed 40 mg PO DAILY 11/27/21 11/27/21 release quetiapine 200 mg tablet 200 mg PO QDAY 11/27/21 11/27/21 sertraline 50 mg tablet 50 mg PO QDAY 11/27/21 11/27/21 simvastatin 20 mg tablet 20 mg PO .hs 11/27/21 11/27/21 tamsulosin 0.4 mg capsule 0.4 mg PO QDAY 11/27/21 11/27/21 trazodone 50 mg tablet 50 mg PO . 11/27/21 11/27/21 Previous Rx's Medication Instructions Recorded glimepiride 4 mg tablet 4 mg PO QDAY #90 tabs 11/27/21 semaglutide 0.25 mg or 0.5 mg (2 0.25 mg (0.2 mL) subcut QWEEK #1.5 11/27/21 mg/1.5 mL) subcutaneous pen mL injector (Ozempic) sitagliptin 100 mg tablet 100 mg PO QDAY #30 tabs 11/27/21 allopurinol 300 mg tablet 300 mg PO QDAY Gout #90 tabs 12/13/21 tramadol 50 mg tablet 50 - 100 mg PO QDAY PRN pain #90 12/18/21 tabs gabapentin 300 mg capsule 900 mg PO TID #270 caps 12/20/21 apixaban 5 mg (74 tabs) tablets in See Rx Instructions PO .COMPLEX 12/27/21 a dose pack #74 ea Allergies Allergy/AdvReac Type Severity Reaction Status Date / Time No Known Allergies Allergy Verified 01/01/22 09:17 Review of Systems Status of ROS: Reports: 10 or more systems reviewed and unremarkable except as noted in History and below PFSH PFS Medical History Abrasion of elbow Back pain Contusion of left upper arm Dyspnea Headache disorder (05/2016) Sprain of left ankle Strain of rotator cuff capsule Surgical History History of gastric bypass (2008) History of inguinal hernia repair History of tonsillectomy Family History Brother Colon cancer Social History Narrative: , 2 adult kids disabled due to joint pains does not exercise but 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 excessive drinking alcohol- 24 beers/week non-smoker HX tobacco use Smoking Status: Former smoker What tobacco products do you use: cigarettes Smoking quit date/years: <= 15 years ago Do you use any of these nicotine containing products: None How often do you have a drink containing alcohol: monthly or less How often do you have six or more drinks on one occasion: Never AUDIT-C Alcohol total score: 1 Non-prescribed substance use: denies use Exam Narrative: Exam Narrative: Objective: The patient is alert orient x3, has no speech disorder, no facial asymmetry Vital signs are unremarkable HEENT is unremarkable no facial asymmetry, tongue protrudes midline, no scleral icterus Neck is supple Chest clear Heart rhythm regular 2/6 Ellik murmur occasional ectopic beat noted Abdomen obese nontender, no masses Right lower extremity shows swelling of the calf some bruising of the calf area. 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 Skin is warm and dry some bruising discoloration over the right calf Const: Vital Signs, click to edit/add: Vital Signs - 24 hr 01/01/22 08:59 01/01/22 10:00 01/01/22 10:30 Temperature 97.4 F L Pulse Rate [Left] 73 67 65 Respiratory Rate 18 18 18 Blood Pressure [Ri ght Forearm] 120/58 L 120/67 140/79 H Pulse Oximetry 95 96 96 Oxygen Delivery Me thod Room Air Room Air Room Air 01/01/22 11:30 01/01/22 12:30 Temperature Pulse Rate [Left] 68 63 Respiratory Rate 18 18 Blood Pressure [Ri ght Forearm] 123/104 H 104/44 L Pulse Oximetry 95 96 Oxygen Delivery Me thod Room Air Room Air Course Vital Signs Vital signs: Initial Vital Signs Temperature 97.4 F L 01/01/22 08:59 Temperature Source Temporal Artery Scan 01/01/22 08:59 Pulse Rate 73 01/01/22 08:59 Respiratory Rate 18 01/01/22 08:59 Blood Pressure 120/58 L 01/01/22 08:59 Blood Pressure Mean 78 01/01/22 08:59 Blood Pressure Position Sitting 01/01/22 08:59 Pulse Oximetry 95 01/01/22 08:59 Oxygen Delivery Method 01/01/22 08:59 Vital Signs Temperature 97.4 F L 01/01/22 08:59 Pulse Rate 73 01/01/22 08:59 Respiratory Rate 18 01/01/22 08:59 Blood Pressure 120/58 L 01/01/22 08:59 Pulse Oximetry 95 01/01/22 08:59 Oxygen Delivery Method 01/01/22 08:59 Temperature 97.4 F L 01/01/22 08:59 Pulse Rate 63 01/01/22 12:30 Respiratory Rate 18 01/01/22 12:30 Blood Pressure 104/44 L 01/01/22 12:30 Pulse Oximetry 96 01/01/22 12:30 Oxygen Delivery Method 01/01/22 12:30 Medical Decision Making MDM Narrative Medical decision making narrative: Patient had apparently awoke with some neurologic complaint his speech issue, he is not sure this was the case, he reports he had a difficult sleeping night last night felt fatigued this morning. He has had no fever, chills, neurologic complaints, he continues to complain of pain in his calf area. Will check a CT CTA of the head and neck, will check a repeat ultrasound of his leg laboratory studies disposition pending findings above please see addendum Addendum: Patient's EKG shows normal sinus rhythm probable left anterior fascicular block limited R progression anteriorly no acute ST T wave changes by my read. Patient had a CT scan and CTA of the neck and head for rule out acute stroke and he has had no stroke symptoms, and his CTA CT are negative. His ultrasound of his leg does show a hematoma in his calf, and Dr. Davis and saw the patient did not feel this was a compartment syndrome as he has had some discomfort in that area, and would like him to just engage in light activity elevate the leg and it would be a matter time to have this resolved. He should see his regular doctor in the next couple of days to get consider a repeat ultrasound in about a week, also he had hyponatremia and he got normal saline he should have a repeat sodium level within the next 2-3 days and he could have this drawn at his follow-up lab visit. The patient also should restrict his water to 4-5 glasses of water a day. The patient's hemoglobin is 9.7 white count [address], sodium was low at 120 as mention. The patient was comfortable plan wished to go home. Follow up as directed. Lab Data Labs: Lab Results 01/01/22 01/01/22 Range/Units 09:50 09:50 WBC 11.28 H (4.50-11.00) K/uL RBC 3.54 L (4.30-5.90) m/uL Hgb 9.7 L (13.5-17.5) gm/dL Hct 28.2 L (37.0-53.0) % MCV 80 (80-100) fL MCH 27 (26-34) pg MCHC 34 (32-36) gm/dL RDW Coeff of Elaine 12.8 (11.5-15.5) % Plt Count 292 (140-440) K/uL Neut % (Auto) 74.7 H (42.0-72.0) % Lymph % (Auto) 12.1 L (20-44) % [place] % (Auto) 11.7 H (0.0-11.0) % Eos % (Auto) 0.7 (0.0-7.0) % Baso % (Auto) 0.3 (0.0-3.0) % Neut # (Auto) 8.40 H (1.7-7.0) K/uL Lymph # (Auto) 1.40 (0.90-2.90) K/uL [place] # (Auto) 1.30 H (0.00-0.90) K/UL Eos # (Auto) 0.10 (0.00-0.50) K/uL Baso # (Auto) 0.00 (0.00-0.30) K/uL Abs Immat Gran (auto) 0.06 (0.00-0.30) K/uL Sodium 120 L* (135-149) mmol/L Potassium 4.4 (3.6-5.1) mmol/L Chloride 83 L (96-114) mmol/L Carbon Dioxide 21 (20-32) mmol/L BUN 12 (7-30) mg/dL Creatinine 1.1 (0.5-1.5) mg/dL Estimated Creat Clear 69.41 Estimated GFR 74 ml/min Glucose 129 H (60-115) mg/dL Calcium 8.0 L (8.4-10.6) mg/dL C-Reactive Protein 4.0 H (0.5-1.0) mg/dL Ethyl Alcohol < 0.01 L (0.01-0.03) % Discharge Plan Discharge Clinical Impression: Deep venous thrombosis, Hyponatremia, Weakness Patient Disposition: Home w/ Parent or Adult Condition: Improved Additional Instructions: Elevate legs, continue home medications, recheck with primary care in the next 48 hours, return to the ED sooner problems or concerns. Should have a repeat sodium level in 2 days. I would recommend repeat ultrasound of the leg within 2 days as well to follow up the hematoma, elevation recommended and light activity. Give a low blood sodium, and need to restrict her fluid intake, to perhaps 4-5 glasses of water a day for the next several days, and get this retested Activity Level: Light activity Activity Detail: Elevate right leg, limited weight-bearing, continue home medications, recheck with primary care doctor in 2 days Discharge Diet: Regular Prescriptions: No Action omeprazole 40 mg capsule,delayed release(DR/EC) 40 mg PO DAILY Label Comments: TAKE ONE CAPSULE BY MOUTH DAILY simvastatin 20 mg tablet 20 mg PO .hs Label Comments: TAKE ONE TABLET BY MOUTH AT BEDTIME sertraline 50 mg tablet 50 mg PO QDAY Label Comments: TAKE 1 TABLET BY MOUTH DAILY metformin 500 mg tablet 1,000 mg PO BID lorazepam 1 mg tablet 1 mg PO QDAY Label Comments: TAKE ONE TABLET BY MOUTH TWICE DAILY NEEDED quetiapine 200 mg tablet 200 mg PO QDAY Label Comments: TAKE ONE TABLET BY MOUTH AT BEDTIME tamsulosin 0.4 mg capsule 0.4 mg PO QDAY Label Comments: TAKE ONE CAPSULE BY MOUTH DAILY lisinopril 20 mg tablet 20 mg PO QDAY Label Comments: take 1 tablet by mouth daily trazodone 50 mg tablet 50 mg PO .hs Label Comments: take 1.5 tablets by mouth 3 times daily meloxicam 15 mg tablet 15 mg PO QDAY Label Comments: TAKE ONE TABLET BY MOUTH DAILY aspirin 81 mg tablet,delayed release (DR/EC) 81 mg PO QDAY Ozempic 0.25 mg or 0.5 mg(2 mg/1.5 mL) pen injector 0.25 mg subcut QWEEK Qty: 1.5 1RF Rx Instructions: for 4 doses then 0.5 mg weekly x 4 weeks glimepiride 4 mg tablet 4 mg PO QDAY Qty: 90 1RF apixaban 5 mg (74 tabs) tablets,dose pack See Rx Instructions .ROUTE .COMPLEX Qty: 74 0RF Rx Instructions: orally per package directions sitagliptin 100 mg tablet 100 mg PO QDAY Qty: 30 2RF Rx Instructions: 1/2 QD x 2 weeks then 1 QD allopurinol 300 mg tablet 300 mg PO QDAY Qty: 90 3RF Label Comments: TAKE 1 TABLET BY MOUTH DAILY tramadol 50 mg tablet 50 - 100 mg PO QDAY PRN (Reason: pain) Qty: 90 2RF Label Comments: take 1-2 tablets by mouth every 6 hours as needed gabapentin 300 mg capsule 900 mg PO TID Qty: 270 11RF Follow Up/Referrals: Mario Keith MD [Primary Care Provider] - Stand Alone Forms: [employer] Info Instructions
--- NOTE | 2022-01-01 09:17 | CRLHL7_ITS ---
For Patients: As a result of the Century Cures Act, medical imaging exams and procedure reports are released immediately into your electronic medical record. You may view this report before your referring provider. If you have questions, please contact your health care provider. INDICATION: Slurred speech. TECHNIQUE: Head CT without contrast. Coronal and sagittal reformats were generated. COMPARISON: CT head from 03/25/2017. FINDINGS: CSF spaces: Within normal limits for age. Brain parenchyma and extra-axial spaces: Mild generalized cerebral and cerebellar atrophy. Nonspecific low attenuation white matter changes consistent with chronic microvascular disease. No sign of mass, hemorrhage, or midline shift. Skull base and calvarium: The visualized paranasal sinuses and mastoid air cells demonstrate no acute or significant findings. The visualized orbits are grossly unremarkable. No skull fractures. IMPRESSION: No acute intracranial abnormality. Findings were reported to Dr. Mae on 01/01/2022 at 10:01 a.m. Please note that all CT scans at this facility use dose modulation, iterative reconstruction, and/or weight-based dosing when appropriate to reduce radiation dose to as low as reasonably achievable. Dictated by Ric Walker MD @ 01/01/2022 10:14:07 AM (Electronically Signed)
--- NOTE | 2022-01-01 09:17 | CRLHL7_ITS ---
For Patients: As a result of the Century Cures Act, medical imaging exams and procedure reports are released immediately into your electronic medical record. You may view this report before your referring provider. If you have questions, please contact your health care provider. DATE: 01/01/2022. CLINICAL HISTORY: Slurred speech. TECHNIQUE: Standard helical CT image acquisition through the head and neck was performed after intravenous contrast bolus enhancement. Multiplanar reconstructed images were performed and interpreted. COMPARISON: None available. FINDINGS: The origins of the great vessels from the aortic arch are patent. The origins of the right and left vertebral arteries are patent. The common carotid arteries are patent. No significant luminal stenoses of the proximal internal carotid arteries by NASCET criteria. The more distal cervical segments of the internal carotid arteries are patent. The cervical segments of the vertebral arteries are patent. No intracranial proximal large vessel occlusion or flow-limiting luminal stenosis. No evidence of cerebral aneurysm or findings to suggest an arteriovenous shunting lesion. IMPRESSION: 1. No intracranial proximal large vessel occlusion or flow-limiting luminal stenosis. 2. Patent cervical arterial vasculature without hemodynamically significant luminal stenosis. Please note that all CT scans at this facility use dose modulation, iterative reconstruction, and/or weight-based dosing when appropriate to reduce radiation dose to as low as reasonably achievable. Dictated by Sandeep Driver MD @ 01/01/2022 10:18:50 AM (Electronically Signed)
--- NOTE | 2022-01-01 09:20 | CRLHL7_ITS ---
For Patients: As a result of the Century Cures Act, medical imaging exams and procedure reports are released immediately into your electronic medical record. You may view this report before your referring provider. If you have questions, please contact your health care provider. Indication: Known DVT. Follow-up. Technique: Sonography of the right lower extremity deep venous system was performed. Comparison: 12/27/2021 Findings: There is adequate visualization incompressibility of both common femoral veins, the right greater saphenous vein, and the proximal, mid and distal femoral vein. Visualization is significantly limited in the calf due to edema and a probable hematoma. The posterior tibial veins compress. There is lack of visualization of the proximal peroneal veins. This could be due to deep venous thrombosis for technical factors related to swelling. A hematoma is identified measuring 14.6 x 2.6 x 7.4 centimeters in its length, depth and medial-lateral respective dimensions. This is in the area bruising. Incomplete compressibility the distal popliteal vein is identified as noted on the prior study. Impression: Re-demonstration of probable clot in the distal popliteal vein. The posterior tibial veins are patent. Poor visualization of the proximal peroneal veins due to swelling though suspect clot involving the proximal peroneal veins. A hematoma is noted in the calf measuring 14.6 x 2.6 x 7.4 centimeter. The pattern of thrombosis is similar to the prior study though the fluid collection is apparently new. Dictated by Juan Marin MD @ 01/01/2022 10:22:58 AM (Electronically Signed)
--- OUTSIDE RECORDS SUMMARY | 2022-01-01 09:32 | XMS_ITS | Clinical Summary ---
:1955 Author Organization [facility] Address [address] [place] [address] Care Team Providers Name Role Phone Mario Keith MD Primary Care Provider Allergies Active Allergy Reactions Severity Noted Date [...] this topic Medical Devices Implanted Type Area Casino [employer]er Device Shelf Model / Identifier Expiration Serial / Date Lot Cement Bone Simplex Hv 40g W/O [employer]ra Cement, N/A: YVON 04/18/2019 [id number] / Implanted: Qty: 2 on 11/28/2017 Bone Knee [employer] / [id number] Description: Implanted into bilateral kn ees Persona Partial Knee System Partial Bárbara cular Surface Left Medial Size J 8mm Thickness Total Joint Left: Aimetis 08/17/2021 [id number] / Implanted: Qty: 1 on 11/28/2017 Component/Insert Knee / [id number] Insurance Payer Benefit Plan / Subscriber ID Effective Phone Address T ype Group Dates BC[place] [id number] 2018-Prese [phone] [address] [id number] [address] [place] [address] MEDICARE MEDICARE [id number] 2012-Pres [phone] ATTN CLAI MS Medicare ent 40 [address] [place] [address] Advance Directives For more information, please contact: [phone] Latest Code Status on File Code Status Date Activated Date Inactivated Comments Full Code 03/03/2021 3:38 PM 03/06/2021 6:26 PM All basic and advanced life-sustaining interventions are performed as oj ropriate Code status determined by: Discussion with patient/ legal de cision maker Care Teams Helper/Driver Relationship Specialty Start Date End Date Mario Keith MD PCP - General Internal Medicine 11/28/17 [facility] [address] [place] [address]
--- OUTSIDE RECORDS SUMMARY | 2022-01-01 09:32 | XMS_ITS | Encounter Summary ---
:1955 Author Organization [facility] Address [address] [place] [address] Care Team Providers Name Role Phone Mario Keith MD Primary Care Provider [phone] Reason for Referral Consultation (Routine) Specialty Diagnoses / Procedures Referred By Contact Refer red To Contact Senthil Zhao MD [address] [place] [address] Referral ID Status Reason Start Date Expiration Date Visits Requ ested Visits Authorized [facility] Health Therapies & Aides (Routine) Specialty Diagnoses / Procedures Referred By Contact Refer red To Contact Senthil Zhao MD [address] [place] [address] Referral ID Status Reason Start Date Expiration Date Visits Requ ested Visits Authorized [facility] Health Therapies & Aides (Routine) Specialty Diagnoses / Procedures Referred By Contact Refer red To Contact Snethil Zhao MD [address] [place] [address] Referral ID Status Reason Start Date Expiration Date Visits Requ ested Visits Authorized Reason for Visit Reason Comments One-sided Weakness Auth/Cert Specialty Diagnoses / Procedures Referred By Contact Refer red To Contact EMERGENCY MEDICINE Diagnoses Acute right-sided weakness Acute right-sided weakness Emergency Dept [address] [place] [address] Phone: Fax: Referral ID Status Reason Start Date Expiration Date Visits Requ ested Visits Authorized [id number] 1 1 Encounter Details Date Type Department Care Team Description 03/03/2021 - Emergency [facility] Deandre Alvarez Cla, MD [facility] [address] [place], [place] [id number] 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) (Primary Dx); 03/06/2021 [place] [address] Medical Sandeep Nunez DO [address] [place] [address] Acute right-sided weakness; Surgical Romaine Eng MD [address] [place] [address] JUSTIN (generalized anxiety disorder); [address] [facility] [place] [address] Social History Tobacco Use Types [...] Zhao MD - 03/06/2021 3:38 PM CDT [facility] Discharge Summary Hospitalist Date of Admission: 03/03/2021 [...] I, or a nurse practitioner or physician's dermatology physician assistant working with me, had a xzaj-gu-mauv encounter that meets the physician fgkh-qj-zveb encounter requirements with this patient on: 03/05/2021. [...] confined to the home and needs intermittent fci care, physical therapy and/or speech therapy. The patient is under my care, and susana initiated the establishment of the plan of care. This patient will be followed by a physician who will periodically review the plan of care. Physician/Provider to provide follow up care: Mario Keith Attending [facility] physician (the Medicare certified MAZON provider): Senthil Zhao MD Physician Signature: See [...] next 24-48 hours, Please call them at [phone] documented in this encounter Medications at Time [...] EMG. Praful Gaytan MD (general neurology) pgr [phone] Senthil Zhao MD - 03/05/2021 2:35 PM CDT [facility] Hospitalist Progress Note Assessment & Plan Jett [...] EXAM: MR CERVICAL SPINE W/O CONTRAST LOCATION: 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 Discharge DME: N/A Discharge Transportation: family or friend will provide Private pay costs discussed: Not applicable Education Provided on the Discharge Plan: yes Persons Notified of Discharge Plans: PT Patient/Family in Agreement with the Plan: yes Handoff Referral Completed: Yes Additional Information: 03/05/21 1100 [facility] ([facility] [phone] fax [phone]) PT able to d.c home today Will [...] service Bedside Nurse: Bhavesh Lynn RN Erika Helney PT - 03/04/2021 3:30 PM CDT 03/04/21 1530 Quick Adds Type of Visit Initial PT Evaluation Sand Mill Operator Core Sand Sand Mill Operator Core Sand Present no Language Dominican Living Environment People in home alone Current [...] Environment Comments Pt. lives alone in two [facility] with bedroom upstairs and railing on [...] alone Current Living Arrangements other (see comments) ([address] [place] [address]) Home Accessibility stairs to enter home;stairs within home Number of Stairs, Main Entrance 2 Stair Railings, Main Entrance railing on right side (ascending) Number of Stairs, Within Home, Primary greater than 10 stairs Stair Railings, Within Home, Primary railing on right side (ascending) Transportation Anticipated car, drives self;family or friend will provide Living Environment Comments Pt. lives alone in [facility] with bedroom upstairs and railing on [...] of Daily Living BADL Assessment toileting Toileting Yates Level (Toileting) supervision;set up;assist of 2;moderate assist [...] Needs Upon Discharge (OT) gait belt;raised toilet seat;culinary arts instructor;shower chair;tub bench;commode chair Risk & Benefits of [...] R UE strength. Pt. lives alone in [facility] with 2 stairs to enter and [...] from the original note were not included. [facility] Hospitalist Progress Note Admit 03/03/2021 9:44 AM Name: Jett Georges II Provider: Romaine Eng MD, [facility] Date of Service: 03/04/2021 Reason for Stay [...] ?? 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 GASTRIC BYPASS ??? HERNIA [...] plaque. There is no stenosis or dissection. [place]: There is some mild calcific [...] -- TROPONIN <0.015 -- Carli Holder PA-C [facility] Medicine March 03, 2021 Securely message with the check24 Console (learn more here) Text page via [facility] [employer] Paging/Directory Associated attestation - Sandeep Nunez DO [...] AM CDTAssociated Order(s): ORTHOPEDIC SURGERY IP CONSULT [facility] Orthopedic Consultation eJtt Georges II Age: [age] year old Date [...] ARTHROPLASTY ; Surgeon: Joseph Ramesh MD; Location: [facility] OR; Service: Orthopedics ??? GASTRIC BYPASS ??? [...] plaque. There is no stenosis or dissection. [place]: There is some mild calcific [...] EXAM: MR CERVICAL SPINE W/O CONTRAST LOCATION: [facility] DATE/TIME: 03/05/2021 10:42 AM INDICATION: Cervical [...] Negative Ketones Urine Negative Negative mg/dL Specific [place] Urine 1.017 1.003 - 1.035 Blood Urine [...] Range Hold Specimen JIC Extra Green Top (Camilla Heparin) Tube Status: None Result Value Ref [...] recent exposure or clinical presentation suggests COVID-19. [facility] are certified under the Clinical [...] Rate 83 BPM Atrial Rate 83 BPM MT Interval 246 ms QRS Duration 122 ms QT 394 ms QTc 462 ms P [place] 69 degrees R AXIS -72 degrees T [place] 19 degrees Interpretation ECG Sinus rhythm with 1st degree A-V block with occasional Premature ventricular complexes Left anterior fascicular block Abnormal ECG No previous ECGs available Neurology IP Consult: General (non-stroke/non-ICU); Patient to be seen: Routine - within 24 hours; right arm weakness, palsy?; Manager Business Operations may enter orders: Yes; Requesting provider? Hospitalist [...] ARTHROPLASTY ; Surgeon: Joseph Ramesh MD; Location: [facility]; Service: Orthopedics ??? GASTRIC BYPASS ??? HERNIA [...] 200 mg, 200 mg, Oral, At Bedtime, lGory, Carli Vogel PA-C, 200 mg at 03/03/21 [...] symmetric movements. MOTOR: Tone is difficult to shellfish manager, pain or difficulty relaxing complicate the assessment [...] without Contrast Praful Gaytan MD (general neurology) [facility] [phone] 1. Acute right-sided weakness Care Management / Social Work IP Consult Status: None () Narrative Sandhya Heath, FACILITIES OPERATOR 03/04/2021 3:22 PM Care Management Initial Consult General Information Assessment completed with: Patient, Type of CM/SW Visit: Initial Assessment Primary Care Provider verified and updated as needed: Readmission within the last 30 days: no previous admission in last 30 days Reason for Consult: discharge planning Communication Assessment Patient's communication style: spoken language (Dominican or Bilingual) Hearing Difficulty or Deaf: no [...] Gatherings with Friends and Family: ??? Attends Restorationism Services: ??? Active Member of Clubs or [...] find to accept referral SW went to [employer] web site.. Called home care agencies but had to navigate through scallop shucker services SW was able [facility] find [facility] [phone] . Requested PT/OT BACK HANGER support for pt. They could provide start of care on Saturday Will fax face sheet and H&P over today and final d.c orders tomorrow Pt stated he will call his son for a ride home tomorrow. 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 Hospitalist (if different from attending physician... Status: None () Narrative Jairo Buckley, AUDREY 03/05/2021 4:01 PM [facility] Neurosurgery Consultation Date of Admission: 03/03/2021 Date [...] with further consultation recommendations. Jairo Buckley PA-C [facility] Neurosurgery [address] [place] [address] Pager [phone] Code Status Full Code Reason for Consult [...] ARTHROPLASTY ; Surgeon: Joseph Ramesh MD; Location: [facility]; Service: Orthopedics ??? GASTRIC BYPASS ??? HERNIA [...] Status --------- ------ CBC with platelets and d...[[id number]] Abnormal Final result Please view results for these tests on the individual orders. Extra Tube ([place] Draw) Status: None Narrative The following orders were created for panel order Extra Tube ([place] Draw). Procedure Abnormality Status --------- ------ Extra Blue Top Tube[[id number]] Final result Extra Green Top (Camilla...[[id number]] Final result Extra Purple Top Tube[[id number]] Final result Please view results for these [...] CDTAssociated Order(s): SPINE SURGERY ADULT IP CONSULT [facility] Neurosurgery Consultation Date of Admission: 03/03/2021 Date [...] with further consultation recommendations. Jairo Buckley PA-C [facility] Neurosurgery [place] [address] Pager [phone] Code Status Full Code Reason for Consult [...] ARTHROPLASTY ; Surgeon: Joseph Ramesh MD; Location: [facility]; Service: Orthopedics ??? GASTRIC BYPASS ??? HERNIA [...] personally see this patient today. Sandhya Heath, FACILITIES OPERATOR - 03/04/2021 3:22 PM CDTAssociated Order(s): CARE MANAGEMENT / SOCIAL WORK IP CONSULT Care Management Initial Consult General Information Assessment completed with: Patient, Type of CM/SW Visit: Initial Assessment Primary Care Provider verified and updated as needed: Readmission within the last 30 days: no previous admission in last 30 days Reason for Consult: discharge planning Communication Assessment Patient's communication style: spoken language (Dominican or Bilingual) Hearing Difficulty or Deaf: no [...] Gatherings with Friends and Family: ??? Attends Restorationism Services: ??? Active Member of Clubs or [...] find to accept referral SW went to [employer] web site.. Called home care agencies but had to navigate through scallop shucker services SW was [facility] [phone] . Requested PT/OT BACK HANGER support for pt. They could provide start [...] ARTHROPLASTY ; Surgeon: Joseph Ramesh MD; Location: [facility]; Service: Orthopedics ??? GASTRIC BYPASS ??? HERNIA [...] symmetric movements. MOTOR: Tone is difficult to shellfish manager, pain or difficulty relaxing complicate the assessment [...] Contrast Praful Gaytan MD (general neurology) pgr [phone] 1. Acute right-sided weakness documented in this encounter ED Notes Bhavesh Lynn RN - 03/03/2021 12:16 PM CDT [facility] ED Nurse Handoff Report Jett Georges II is a 65 year old male ED Chief complaint: One-sided Weakness . ED Diagnosis: Final diagnoses: Acute right-sided weakness Allergies: Allergies Allergen Reactions ??? Zyban [Bupropion Hydrobromide] Hives Code Status: Full Code Activity level - Baseline/Home: Independent. Activity Level - Current: Assist X 1. Lift room needed:No. Bariatric: No Sand Mill Operator Core Sand Needed: No Isolation: No. Infection: Not Applicable. [...] recent exposure or clinical presentation suggests COVID-19. [facility] are certified under the Clinical [...] Status --------- ------ CBC with platelets and d...[[id number]] Abnormal Final result Please view results for these tests on the individual orders. EXTRA TUBE Narrative: The following orders were created for panel order Extra Tube ([place] Draw). Procedure Abnormality Status --------- ------ Extra Blue Top Tube[[id number]] Final result Extra Green Top (Camilla...[[id number]] Final result Extra Purple Top Tube[[id number]] Final result Please view results for these [...] history is provided by the patient. Jett Georgse II is a 65 year old male [...] Unable to fully extend the right wrist. Defence Force Member Other Ranks strength 5/5 and symmetric bilaterally. Left upper [...] to prior, dated 11/28/2017. Rate 83 bpm. MT interval 246 ms. QRS duration 122 ms. [...] Status --------- ------ CBC with platelets and d...[[id number]] Abnormal Final result Please view results for these tests on the individual orders. EXTRA TUBE Narrative: The following orders were created for panel order Extra Tube ([place] Draw). Procedure Abnormality Status --------- ------ Extra Blue Top Tube[[id number]] Final result Extra Green Top (Camilla...[[id number]] Final result Extra Purple Top Tube[[id number]] Final result Please view results for these [...] care of Dr. Nunez. Impression & Plan [facility] Diagnoses: The patient has stroke symptoms: ED [...] hypoglycemia (or hyperglycemia), head or spinal trauma, SCHOOL SERVICES OFFICER infection, Toxin ingestion and shock state (e.g. [...] goal(s). See goals on Care Plan in [facility] electronic health record for goal details. [...] UE strength. Pt. lives alone in two [facility] with 2 stairs to enter and [...] from the original note were not included. [facility] OUTPATIENT PHYSICAL THERAPY EVALUATION PLAN OF TREATMENT FOR OUTPATIENT REHABILITATION (COMPLETE FOR INITIAL CLAIMS ONLY) Patient's Last Name, First Name, M.I. Date of : 1955 Jett Georges Provider's Name [facility] Onset Date: 03/03/21 Start of Care Date: 03/04/2021 Type: _X_PT ___OT ___SLP Medical Diagnosis: R-sided weakness PT Diagnosis: Impaired fn mobility Visits from SOC: 1 _ Plan of Treatment/Functional Goals Planned Interventions: bed mobility training, balance training, patient/family education, stair training, strengthening, gait training, neuromuscular re- education, stretching, transfer training Goals: See Physical Therapy Goals on Care Plan in [facility] electronic health record. Therapy Frequency: Daily Predicted Duration of Therapy Intervention: 3 days _ I CERTIFY THE NEED FOR THESE SERVICES FURNISHED UNDER THIS PLAN OF TREATMENT AND WHILE UNDER MY CARE (Physician co-signature of this document indicates review and certification of the therapy plan). , Referring Physician: Sandeep Nunez, DO Initial Assessment See Physical Therapy evaluation dated in [facility] electronic health record. Associated attestation - Romaine Eng MD - 03/04/2021 6:08 PM CDT I CERTIFY THE NEED FOR THESE SERVICES FURNISHED UNDER THIS PLAN OF TREATMENT AND WHILE UNDER MY CARE (Physician co-signature of this document indicates review and certification of the therapy plan). Utilization Review - Nikki Gonzalez MD - 03/04/2021 12:10 PM CDT [facility] Admission Status; Secondary Review Determination Admission Date: [...] Sincerely, Nikki Gonzalez MD MPH Utilization Review [facility]. Plan of Care - Amelia Kiran RN [...] RN Pharmacy-Admission Medication History - Varinder Daniels [facility] - 03/03/2021 2:10 PM CDT Admission medication history interview status for this patient is complete. See PSYCHIATRIC admission navigator for allergy information, prior to admission medications and immunization status. Medication history interview done, indicate source(s): Patient Medication history resources (including written lists, pill bottles, clinic record):[facility]: [id number] [place], [place] - [address] [address] Changes made to FISHING FLOATS ASSEMBLER medication list: Added: all meds Changed: trazodone 75 mg TID -> at bedtime Reported as Not Taking: none Removed: none Actions taken by pharmacist (provider contacted, etc):left sticky note for provider Additional medication history information: - Patient may have confused trazodone with tramadol and took about 10 tramadol tablets in total yesterday. - The current medication list was completed to the best of proposal manager writer's ability using available resources (e.g. [facility] dispensing records, Care Everywhere, chart review notes, [...] Code Phon e Number [place] [address] Care Lab [address] Lab (1st floor, no room number) [...] in clude each brachial plexus in the dpxwt-jw-pjbx. JOHN HAWTHORNE MD SYSTEM ID: ??[id number] Narrative 03/06/2021 2:48 PM CDT MRI OF [...] in clude each brachial plexus in the syglp-mb-rkka. JOHN HAWTHORNE MD SYSTEM ID: [id number] Veronica Murrell PA-C IMG MRI ORDERABLES (ABNORMAL) [...] Code Phon e [place] [address] Care Lab [address] Lab (1st floor, no room number) [...] Code Phon [place] [address] Care Lab [address] Lab (1st floor, no room number) [...] Code Phon [place] [address] Care Lab [address] Lab (1st floor, no room number) [...] City/State/ZIP Code [place] [address] Care Lab [address] Lab [...] 7:27 Unknown CDT AM CDT Sandeep HANNAH Signdat POCT Performing Organization Address City/[facility]/ZIP Code [place] [address] Care Lab [address] Lab (1st floor, no room number) [...] LAB - BEAKER POCT Performing Organization Address City/[facility]/ZIP Code [place] [address] Care Lab [address] Lab (1st floor, no room number) [...] LAB - BEAKER POCT Performing Organization Address City/[facility]/ZIP Code [place] [address] Care Lab [address] Lab (1st floor, no room number) [...] LAB - BEAKER POCT Performing Organization Address City/[facility]/ZIP Code [place] [address] Care Lab [address] Lab (1st floor, no room number) [...] City/State/ZIP Code [place] [address] Care Lab [address] Lab (1st floor, no room number) [...] City/State/ZIP Code [place] [address] Care Lab [address] Lab (1st floor, no room number) [...] City/State/ZIP Code [place] [address] Care Lab [address] Lab (1st floor, no room number) (ABNORMAL) Basic metabolic panel (03/04/2021 8:02 AM CDT) [facility] Method Time Signature Sodium 132 (L) [...] ORDERABLES Performing Organization Address City/[facility]/ZIP [place] [address] Care Lab [address] Lab (1st floor, no room number) [...] LAB - BEAKER POCT Performing Organization Address City/[facility]/ZIP Code [place] [address] Care Lab [address] Lab (1st floor, no room number) [...] LAB - BEAKER POCT Performing Organization Address City/[facility]/ZIP Code [place] [address] Care Lab [address] Lab (1st floor, no room number) [...] ORDERABLES Performing Organization Address City/[facility]/ZIP Code [place] [address] Care Lab [address] Lab (1st floor, no room number) [...] ORDERABLES Performing Organization Address City/[facility]/ZIP Code [place] [address] Care Lab [address] Lab (1st floor, no room number) [...] LAB - BEAKER POCT Performing Organization Address City/[facility]/ZIP Code Phon e [place] [address] Care Lab [address] Lab (1st floor, no room number) [...] Code Phon e [place] [address] Care Lab [address] Lab (1st floor, no room number) [...] LAB - BLOOD ORDERABLES Performing Organization Address [facility]/ZIP Code [place] [phone] Care Lab [address] Lab (1st floor, no room number) [...] Address City/State/ZIP [place] [address] Care Lab [address] Lab (1st floor, no room number) [...] ORDERABLES Performing Organization Address City/[facility]/[place] [address] Care Lab [address] Lab (1st floor, no room number) [...] exposure or clinical presentation sugges ts COVID-19. ??[facility] are certified under the Clinical Laborat ory Improvement Amendments of 1988 (CLIA-88) as qualified to perform moderate and/or high complexity laboratory testing. Deandre Alvarez MD LAB - MICRO GENERAL ORDERABL ES Performing Organization Address City/State/ZIP [place] [phone] Care Lab [address] [facility] Lab (1st floor, no room number) (ABNORMAL) UA with Microscopic reflex to Culture (03/03/2021 11:03 AM CDT) [facility] Method Time Signature Color Urine Light Colorless, 03/03/2021 LABORATORY Yellow Straw, 11:28 AM Light CDT Yellow, Yellow Appearance Urine Clear Clear 03/03/2021 LABORATOR Y 11:28 AM CDT Glucose Urine 150 (A) Negative 03/03/2021 LABORATORY mg/dL 11:28 AM CDT Bilirubin Urine Negative Negative 03/03/2021 LABORATORY 11:28 AM CDT Ketones Urine Negative Negative 03/03/2021 LABORATORY mg/dL 11:28 AM CDT Specific [place] 1.017 1.003 - 03/03/2021 LABORATOR Y Urine [...] Address City/State/ZIP [place] [phone] Care Lab [address] Lab (1st floor, no room number) [...] MRI might be helpful in further evaluation. JUNA LEAL MD SYSTEM ID: [id number] Deandre Alvarez [...] plaque. There is no stenosis or dissection. [place]: There is some mild tracee [...] plaque. There is no stenosis or dissection. [place]: There is some mild tracee [...] RESULTS Atrial Rate 83 BPM RADIOLOGY RESULTS MT Interval 246 ms RADIOLOGY RESULTS QRS Duration 122 ms RADIOLOGY RESULTS QT 394 ms RADIOLOGY RESULTS QTc 462 ms RADIOLOGY RESULTS P [place] 69 degrees RADIOLOGY RESULTS R AXIS -72 degrees RADIOLOGY RESULTS T [place] 19 degrees RADIOLOGY RESULTS Interpretation Sinus rhythm [...] Organization Address City/State/[place] [phone] Care Lab [address] Lab (1st floor, no room number) [...] Organization Address City/State/[place] [phone] Care Lab [address] Lab (1st floor, no room number) [...] Organization Address City/State/[place] [phone] Care Lab [address] Lab (1st floor, no room number) [...] Organization Address City/State/[place] [address] Care Lab [address] Lab (1st floor, no room number) [...] Organization Address City/State/[place] [address] Care Lab [address] Lab (1st floor, no room number) Extra Green Top (Camilla Heparin) Tube (03/03/2021 9:58 AM CDT) athologist [...] Organization Address City/State/[place] [address] Care Lab [address] Lab (1st floor, no room number) [...] Organization Address City/State/[place] [address] Care Lab [address] Lab (1st floor, no room number) (ABNORMAL) CBC with platelets and differential (03/03/2021 9:58 AM CDT) [facility] Method Time Signature WBC Count 13.3 [...] ORDERABLES Performing Organization Address City/[facility]/ZIP Code [place] [address] Care Lab [address] Lab (1st floor, no room number) [...] ORDERABLES Performing Organization Address City/[facility]/ZIP Code [place] [address] Care Lab [address] Lab (1st floor, no room number) [...] ORDERABLES Performing Organization Address City/[facility]/ZIP Code [place] [address] Care Lab [address] Lab (1st floor, no room number) [...] ORDERABLES Performing Organization Address City/[facility]/ZIP [place] [address] Care Lab [address] Lab (1st floor, no room number) [...] Address City/State/ZIP [place] [phone] Care Lab [address] Lab (1st floor, no room number) [...] Address City/State/ZIP Code [place] [address] Care Lab [address] Lab [...] 1914, Administer intramuscular if an intravenous ro [place] is not available and notify provider when [...] 1914, Administer intramuscular if an intravenous ro [place] is not available and notify provider when [...] Lynn RN) 08 (Given - Provider: Elaine Bonnre RN) 40 mg, Oral, DAILY, First dose [...] stools.
documented in this encounter Care Teams Application Lead Relationship Specialty Start Date End Date Mario Keith MD PCP - General Internal Medicine 11/28/17 [facility] [address] [place] [address] documented as of this encounter
--- OUTSIDE RECORDS SUMMARY | 2022-01-01 09:33 | XMS_ITS | Encounter Summary ---
:1955 Author Organization [place] Address [address] [place] [address] Care Team Providers Name Role Phone Mario Keith MD Primary Care Provider [phone] Encounter Details Date Type Department Care Team Description 11/28/2017 - Hospital Encounter [facility], Prim keya osteoarthritis 11/29/2017 [facility], [address] [facility] [place], [place] [address] [facility] [address] [place] [address] [place], [place] [id number] Social History Tobacco Use Types Packs/Day Years [...] at discharge: Leandro Curiel Home Medication Instructions JESUSITA:[id number] Printed on:11/29/17 1430 Medication Information acetaminophen (TYLENOL) [...] with oral pain medication Marion Romano PA-C [facility] Maria E Russo MD - 11/29/2017 [...] spent 35 min Maria E Russo MD. [facility] medicine service Selam Overton RT - 11/28/2017 3:13 PM CDT 11/28/17 1512 NPPV Other SpO2 96 % CPAP CPAP Pt. 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 [employer] Med List Medication Sig Note Last Dose [...] 50mg Information source(s): Patient, [facility] Patient was asked about OTC/herbal products specifically. [employer] med list reflects this. Based on the pharmacist???s assessment, the [employer] med list information appears reliable Allergies were [...] - for htn, dm2 Leandro Curiel, 1955, [facility] Prd Osteoarthritis of knee [M17.10] PCP: Mario Keith MD, Code status: Full Code Extended Emergency Contact Information Primary Emergency Contact: Alisson Curiel [facility] Relation: [id number]-Uud Secondary Emergency Contact: Ervin Conner [facility] Relation: Child Assessment and Plan Essential hypertension [...] spent 70 min Maria E Russo MD. [facility] medicine service. documented in this encounter Miscellaneous Notes Op Note - Jennifer Arenas MD - 11/28/2017 11:48 AM CDT Operative Report PATIENT: Lenadro Curiel DATE OF SURGERY: 11/28/2017 SURGEON Jennifer Arenas MD. OIL WELL LOGGER Joe Strickland PA-C (Expert AUDREY assist was [...] knee with increasing disability. X-rays have shown etat-lm-thou degenerative change in the medial compartment. Has [...] Organization Address City/State/ZIP Code Phon e Number [facility] POCT RESULTS 1924 [employer] [facility] [address] [address] Glucose by meter POCT (11/29/2017 7:03 AM CDT) athologist Signature GLUCOSE BY 116 mg/dL 11/29/2017 [facility] METER POCT 7:03 AM CDT [facility] POCT RESULTS Comment: Reference Ranges ? [...] Organization Address City/State/ZIP Code Phon e Number [facility] POCT RESULTS 1924 [facility] N [address] Hemoglobin A1c (11/29/2017 6:17 AM CDT) P athologist Signature Hemoglobin A1C 6.0 4.2 - 6.1 11/29/2017 HEALTH % 3:11 PM CDT [facility] Specimen Anatomical Collection Method / Collection Time Recei karin Time (Source) Location / Volume Laterality Blood specimen Venipuncture / 11/29/2017 6:17 11/30/19 18 9:36 (specimen) Unknown AM CDT AM CDT Maria E Russo MD LAB - BLOOD ORDERABLES Performing Organization Address City/State/ZIP Code Phon e [place] [address] [address] [facility] (ABNORMAL) CBC with platelets (11/29/2017 6:17 AM CDT) Patholo gist Method Time Signature WBC 7.7 4.0 - 11.0 11/29/2017 [facility] thou/uL 6:27 AM CDT [facility] RBC Count 3.65 (L) 4.40 - 11/29/2017 HEALTH 6.20 6:27 AM CDT [facility] mill/uL [facility] LABOR[facility]ORY Hemoglobin 10.3 (L) 14.0 - 11/29/2017 HEALTH 18.0 g/dL 6:27 AM T [facility] Hematocrit 30.9 (L) 40.0 - 11/29/2017 HEALTH 54.0 % 6:27 AM T [facility] MCV 85 80 - 100 11/29/2017 HEALTH fL 6:27 AM T [facility] MCH 28.2 27.0 - 11/29/2017 HEALTH 34.0 pg 6:27 AM T [facility] MCHC 33.3 32.0 - 11/29/2017 HEALTH 36.0 g/dL 6:27 AM T [facility] RDW 13.3 11.0 - 11/29/2017 HEALTH 14.5 % 6:27 AM T [facility] Platelet Count 177 140 - 440 11/29/2017 [facility] thou/uL 6:27 AM T [facility] Mean Platelet 9.8 8.5 - 12.5 11/29/2017 [facility] Volume fL 6:27 AM [facility] LABOR[facility]ORY Specimen Anatomical Collection Method / Collection Time Recei karin Time (Source) Location / Volume Laterality Blood specimen Venipuncture / 11/29/2017 6:17 11/30/19 18 6:22 (specimen) Unknown AM CDT AM CDT Maria E Russo MD LAB - BLOOD ORDERABLES Performing Organization Address City/State/ZIP Code Phon e Number [facility] [place] [address] Lab Daniel Howe [address] [place] [address] LABORATORY (ABNORMAL) Basic metabolic panel (11/29/2017 6:17 AM CDT) Analysis Performed At Patho logist Time Signature Sodium 134 (L) 136 - 145 11/29/2017 HEALTH mmol/L 6:42 AM CDT [facility] Potassium 4.5 3.5 - 5.0 11/29/2017 HEALTH mmol/L 6:42 AM T [facility] Chloride 99 98 - 107 11/29/2017 HEALTH mmol/L 6:42 AM T [facility] Carbon Dioxide 27 22 - 31 11/29/2017 HEALTH (CO2) mmol/L 6:42 AM T [facility] Anion Gap 8 5 - 18 11/29/2017 HEALTH mmol/L 6:42 AM T [facility] Glucose 122 70 - 125 11/29/2017 HEALTH mg/dL 6:42 AM T [facility] Calcium 8.8 8.5 - 10.5 11/29/2017 HEALTH mg/dL 6:42 AM [facility] Urea Nitrogen 7 (L) 8 - 22 11/29/2017 [facility] mg/dL 6:42 AM [facility] Creatinine 0.78 0.70 - 11/29/2017 HEALTH 1.30 mg/dL 6:42 AM T [facility] GFR Estimate If >60 >60 11/29/2017 HEALTH Black mL/min/1.7 6:[address] LABORATORY GFR Estimate >60 >60 11/29/2017 HEALTH mL/min/1.7 6:[address] LABORATORY Specimen Anatomical Collection Method / Collection Time Recei karin Time (Source) Location / Volume Laterality Blood specimen Venipuncture / 11/29/2017 6:17 11/30/19 18 6:22 (specimen) Unknown AM CDT AM CDT Narrative [facility] - 11/29/2017 6:42 AM CDT Fasting Glucose reference range is 70-99 mg/dL per [place] [employer] (ADA) chay dela cruz. Maria E Russo MD LAB - BLOOD ORDERABLES Performing Organization Address City/State/ZIP Code Phon e Number [facility] [place] [address] [facility] [address] [place] [address] [address] [facility] [address] [place] [address], [facility] Glucose by meter POCT [...] Organization Address City/State/ZIP Code Phon e Number [facility] POCT RESULTS [address] [place] [address] Glucose by meter POCT (11/28/2017 4:59 PM CDT) athologist Signature GLUCOSE BY 105 mg/dL 11/28/2017 [facility] METER POCT 4:59 PM CDT HOSPITAL POCT [...] Organization Address City/State/ZIP Code Phon e Number [facility] POCT RESULTS [address] [place] [address] Glucose by meter POCT (11/28/2017 11:53 AM CDT) athologist Signature GLUCOSE BY 107 mg/dL 11/28/2017 [facility] METER POCT 11:53 AM CDT [facility] POCT RESULTS Comment: Reference Ranges ? [...] Organization Address City/State/ZIP Code Phon e Number [facility] POCT RESULTS 1924 [facility] N [address] (ABNORMAL) CBC with platelets (11/28/2017 7:46 AM CDT) [facility] gist Method Time Signature WBC 6.6 4.0 - 11.0 11/28/2017 HEALTH thou/uL 7:52 AM CDT [facility] RBC Count 3.84 (L) 4.40 - 11/28/2017 HEALTH 6.20 7:52 AM CDT [facility] Hemoglobin 10.9 (L) 14.0 - 11/28/2017 HEALTH 18.0 g/dL 7:52 AM CDT [facility] Hematocrit 32.4 (L) 40.0 - 11/28/2017 HEALTH 54.0 % 7:52 AM CDT [facility] MCV 84 80 - 100 11/28/2017 [facility] fL 7:52 AM CDT [facility] MCH 28.4 27.0 - 11/28/2017 HEALTH 34.0 pg 7:52 AM CDT [facility] MCHC 33.6 32.0 - 11/28/2017 HEALTH 36.0 g/dL 7:52 AM CDT [facility] RDW 13.5 11.0 - 11/28/2017 HEALTH 14.5 % 7:52 AM CDT [facility] Platelet Count 221 140 - 440 11/28/2017 HE[facility] thou/uL 7:52 AM CDT [facility] Mean Platelet 9.9 8.5 - 12.5 11/28/2017 HEALTH Volume fL 7:52 AM CDT [facility] Specimen Anatomical Collection Method / Collection Time Recei karin Time (Source) Location / Volume Laterality Blood specimen Venipuncture / 11/28/2017 7:46 11/29/19 18 7:50 (specimen) Unknown AM CDT AM CDT Joe Strickland PA-C LAB - BLOOD ORDERABLES Performing Organization Address City/State/ZIP Code Phon e Number [facility] [place] [address] Howe [address] [place] [address] LABORATORY EXTRA GREEN TOP (LITHIUM [...] athologist Signature GLUCOSE BY 106 mg/dL 11/28/2017 [facility] METER POCT 7:45 AM CDT HOSPITAL POCT [...] Organization Address City/State/ZIP Code Phon e Number [facility] POCT RESULTS 1924 [facility] N [address] LAB RESULT - HIM SCAN (11/28/2017) Narrative [...] leg documented in this encounter Care Teams Lapeler Relationship Specialty Start Date End Date Mario Keith MD PCP - General Internal Medicine 11/28/17 [facility] [address] [place] [address] documented as of this encounter
--- OUTSIDE RECORDS SUMMARY | 2022-01-01 09:33 | XMS_ITS | Encounter Summary ---
:1955 Author Organization [place] Address [address] [place] [address] Care Team Providers Name Role Phone Unavailable Primary Care Provider Unavailable Reason for Visit Reason Onset Date Comments Clinic Care Coordination - Initial 02/27/2016 Encounter Details Date Type Department Care Team Description 02/27/2016 Telephone General Surgery Gaby Sanford, Clinic Care [address] [facility] RN Coordination - Initial [address]th Floor [address] [place] [address] [place], [place] [phone] (Wo rk) Social History Tobacco Use Types Packs/Day Years Used Date Never Assessed Sex Assigned at Date Recorded Not on file documented as of this encounter Miscellaneous Notes Telephone Encounter - Gaby Sanford, RN - 02/27/2016 3:25 PM CDT Referral from [employer] website. Patient has history of RYGB, would not be a candidate for the intragastric balloon. Encourage patient to set up appt for medical weight management. Contact information given. documented in this encounter Plan of Treatment Not on filedocumented as of this encounter Visit Diagnoses Not on filedocumented in this encounter
--- OUTSIDE RECORDS SUMMARY | 2022-01-01 09:33 | XMS_ITS | Encounter Summary ---
:1955 Author Organization [place] Address [facility] [place] [address] Care Team Providers Name Role Phone Unavailable Primary Care Provider Unavailable Encounter Details Date Type Department Care Team Description 08/25/2007 Historic Notes INTERFACED REPORT Interface, Transcript on, Social History Tobacco Use Types Packs/Day Years Used Date Never Assessed Sex Assigned at Date Recorded Not on file documented as of this encounter Progress Notes Interface, Director Financial Systems - 08/07/2010 12:05 AM CDT BARIATRIC FOLLOW [...]
--- OUTSIDE RECORDS SUMMARY | 2022-01-01 09:33 | XMS_ITS | Encounter Summary ---
:1955 Author Organization [place] Address [address] [place] [address] Care Team Providers Name Role Phone Mario Keith MD Primary Care Provider [phone] Encounter Details Date Type Department Care Team Description 11/27/2017 Anesthesia - [facility] MD Nina Wilmot OR [address] [place] [address] [place], [place] [phone] Social History Tobacco Use Types Packs/Day Years [...] sitting Prep: ChloraPrep Patient monitoring: heart rate, school lunch monitor, continuous pulse ox and blood pressure [...] pressure, heart rate, continuous pulse oximetry and school lunch monitor Laterality: right Injection technique: ultrasound guided [...] pressure, heart rate, continuous pulse oximetry and school lunch monitor Laterality: left Injection technique: ultrasound guided [...] on filedocumented in this encounter Care Teams Automatic Spinning Lathe Operator Relationship Specialty Start Date End Date Mario Keith MD PCP - General Internal Medicine 11/28/17 [place] [address] documented as of this encounter
--- OUTSIDE RECORDS SUMMARY | 2022-01-01 09:33 | XMS_ITS | Encounter Summary ---
:1955 Author Organization [place] Address [address] [place] [address] Care Team Providers Name Role Phone Unavailable Primary Care Provider Unavailable Encounter Details Date Type Department Care Team Description 10/20/2007 Historic Notes INTERFACED REPORT Interface, Transcript onMD Social History Tobacco Use Types Packs/Day Years Used Date Never Assessed Sex Assigned at Date Recorded Not on file documented as of this encounter Progress Notes Interface, Hi Ranger Operator - 08/06/2010 9:30 PM CDT General Information - How to be addressed Leandro - personal finance instructor to Gabriella Foster (sister) notify: - Phone 1: [phone] - personal finance instructor #2: Leandro Curiel (father) - Phone 1: [phone] - personal finance instructor #3: Nusrat KieraGueroAime (friend) - Phone 1: [phone] - Patient's Spoken Language, Serbian communication style Advance Directive - Do you [...] Considerations - Developmental None Learning Considerations - Presybeterian Learning None Considerations Activity-Exercise/Self Care - Ambulation [...] life Values/Beliefs/Spiritual Care - F: Catherine: Does Scientology culture/spirituality/ episcopalian play an important part in your life? - Would you like Does not wish to have anyone contacted pastoral care/clergy/extension service advisor notified? Mutuality/Individual Preferences - What information [...] Tolerance, Values/Beliefs/Spiritual Care, Mut uality/Individual Preferences Interface, Hi Ranger Operator - 08/06/2010 9:27 PM CDT Bariatric Consult [...]
--- OUTSIDE RECORDS SUMMARY | 2022-01-01 09:33 | XMS_ITS | Encounter Summary ---
:1955 Author Organization [place] Address [address] [place] [address] Care Team Providers Name Role Phone Unavailable Primary Care Provider Unavailable Encounter Details Date Type Department Care Team Description 03/07/2009 Historic Notes INTERFACED REPORT Interface, Transcript onMD Social History Tobacco Use Types Packs/Day Years Used Date Never Assessed Sex Assigned at Date Recorded Not on file documented as of this encounter Progress Notes Interface, Small Piece Cutter - 08/05/2010 5:35 PM CDT General Information - Has NOT attended OT 13:00 as of: Plan - Plan: Continue to invite to groups to assess. Signatures ESTER DIGGS (MILLER)[Signed 12:38] Authored: General Information, Plan documented in this encounter Plan of Treatment Not on filedocumented as of this encounter Visit Diagnoses Not on filedocumented in this encounter
--- OUTSIDE RECORDS SUMMARY | 2022-01-01 09:33 | XMS_ITS | Encounter Summary ---
:1955 Author Organization [place] Address [facility] [place] [address] Care Team Providers Name Role Phone Unavailable Primary Care Provider Unavailable Encounter Details Date Type Department Care Team Description 03/03/2009 Discharge Summary [facility] Blas Cates, (Job Honer) [facility] [address] [facility] [place] [address] (Wo rk) Social History Tobacco Use Types Packs/Day Years Used Date Never Assessed Sex Assigned at Date Recorded Not on file documented as of this encounter Progress Notes Interface, Job Honer - 03/30/2009 10:58 PM FARM EQUIPMENT SERVICE TECHNICIAN FINAL DISCHARGE DIAGNOSES: AXIS I: 1. Major [...] DO MT: SONYA Name: JETT GEORGES Account: [id number] : 1955 Admit Date: [id number] Discharge Date: 03/08/2009 Document: [id number] EQUIPMENT SERVICE TECHNICIAN documented in this encounter Plan of Treatment Not on filedocumented as of this encounter Visit Diagnoses Not on filedocumented in this encounter
--- OUTSIDE RECORDS SUMMARY | 2022-01-01 09:33 | XMS_ITS | Encounter Summary ---
:1955 Author Organization [place] Address [address] [facility] [address] Care Team Providers Name Role Phone Unavailable Primary Care Provider Unavailable Reason for Visit Reason Onset Date Comments Patient Request 10/23/2012 Encounter Details Date Type Department Care Team Description 10/23/[address] [facility] Weight Alireza White MD Patient Request Management Clinic Ed [facility] [address] [place] [place] [address] [address] [place] [phone] Social History Tobacco Use Types Packs/Day Years [...]
--- OUTSIDE RECORDS SUMMARY | 2022-01-01 09:33 | XMS_ITS | Encounter Summary ---
:1955 Author Organization [place] Address [facility] [place] [address] Care Team Providers Name Role Phone Unavailable Primary Care Provider Unavailable Encounter Details Date Type Department Care Team Description 03/07/2009 Historic Notes INTERFACED REPORT David Minaya MD [facility] [address] [facility] [address] [facility] [place], [place] [address] (Wo rk) Social History Tobacco Use Types [...]
--- OUTSIDE RECORDS SUMMARY | 2022-01-01 09:33 | XMS_ITS | Encounter Summary ---
:1955 Author Organization [place] Address [address] [place] [address] Care Team Providers Name Role Phone Unavailable Primary Care Provider Unavailable Encounter Details Date Type Department Care Team Description 03/05/2009 Historic Results [facility] [address] [facility] [place] [address] (Wo rk) Social History Tobacco Use Types [...]
--- OUTSIDE RECORDS SUMMARY | 2022-01-01 09:33 | XMS_ITS | Encounter Summary ---
:1955 Author Organization [place] Address [address] [place] [address] Care Team Providers Name Role Phone Unavailable Primary Care Provider Unavailable Encounter Details Date Type Department Care Team Description 03/07/2009 Historic Results [facility] [address] [facility] [place] [address] (Wo rk) Social History Tobacco Use Types [...]
--- OUTSIDE RECORDS SUMMARY | 2022-01-01 09:33 | XMS_ITS | Encounter Summary ---
:1955 Author Organization [place] Address [facility] [place] [address] Care Team Providers Name Role Phone Unavailable Primary Care Provider Unavailable Encounter Details Date Type Department Care Team Description 10/20/2007 Operative Report [facility] Em Merida MD (Lithograph Designer) [address] Results [address] [place] [address] Social History Tobacco Use Types Packs/Day Years Used Date Never Assessed Sex Assigned at Date Recorded Not on file documented as of this encounter Progress Notes Em Merida - 10/27/2007 10:29 PM CDT FINAL 1st Superintendent Pier: Kalpana Becker PA-C PREOPERATIVE DIAGNOSIS: 1. Morbid [...] kera Name: JETT GEORGES MRN: [id number] Account: [id number] : 1955 Procedure Date: 10/20/2007 Document: [id number] documented in this encounter Plan of Treatment Not on filedocumented as of this encounter Visit Diagnoses Not on filedocumented in this encounter
--- OUTSIDE RECORDS SUMMARY | 2022-01-01 09:33 | XMS_ITS | Encounter Summary ---
:1955 Author Organization [place] Address [address] [facility] [place] [address] Care Team Providers Name Role Phone Unavailable Primary Care Provider Unavailable Encounter Details Date Type Department Care Team Description 04/07/2007 Consultation [facility] Madhu Toney MD [address] [facility] [address] [place] [address] (Wo rk) Social History Tobacco Use Types Packs/Day Years Used Date Never Assessed Sex Assigned at Date Recorded Not on file documented as of this encounter Progress Notes Madhu Toney - 05/20/2007 9:06 PM FORGING PRESS LEVER TENDER FINAL CHIEF COMPLAINT: Sleep apnea, reflux, hyperlipidemia, [...] include diet pills over 30 years ago, [id number] diets, exercise. His attempts for weight loss, [...] one who had it done down in [place]. The patient is setting up his appointment [...] kathi Name: JETT GEORGES MRN: [id number] Account: [id number] : 1955 Consult Date: 04/07/2007 Document: [id number] ING PRESS LEVER TENDER documented in this encounter Plan of Treatment Not on filedocumented as of this encounter Visit Diagnoses Not on filedocumented in this encounter
--- OUTSIDE RECORDS SUMMARY | 2022-01-01 09:33 | XMS_ITS | Encounter Summary ---
:1955 Author Organization [place] Address [address] [place] [address] Care Team Providers Name Role Phone Unavailable Primary Care Provider Unavailable Encounter Details Date Type Department Care Team Description 03/08/2009 Historic Notes INTERFACED REPORT Interface, Transcript on, Social History Tobacco Use Types Packs/Day Years Used Date Never Assessed Sex Assigned at Date Recorded Not on file documented as of this encounter Progress Notes Interface, As400 Administrator - 08/05/2010 5:32 PM CDT Summary of Progress and Discharge Plan - Summary: Pt's therapist appt is at [facility] in [place] and pt needs to be their at 12:30 to check in and Terrie (therapist) will need to make the referal for med management. - Symptoms to Report: thoughts of suicide, dial 911 - Lifestyle Adjustment: Do not use drugs or alcohol Psychiatry Follow-Up - Therapist: Terrie Rodríguez - Therapist Address: [address] [place] [address]. - Therapist Phone Number: - Therapist Appointment 01:00 Date/Time: Provider Information - Discharged From: [facility] - Unit: 30 - Unit - [...] Avoid alcohol. Resources - Resources Crisis Intervention: 691.220.4686 or [phone] (TTY: 994.783.7607); call anytime for help. National [place] [employer] Mental Illness (www.[place].apryl.org):: 445-284-4386 or 193-311-6784. Signatures BRITTNEE HART (Psychotherapist)[Signed 11:59] Authored: Summary of Progress and Discharge Plan, Psychiatry Follow-Up Mariann Sierra (RN)[Signed 11:45] Authored: Summary of Progress and Discharge Plan, Provider Information, Discharge Teaching Checklist, Resources documented in this encounter Plan of Treatment Not on filedocumented as of this encounter Visit Diagnoses Not on filedocumented in this encounter
--- OUTSIDE RECORDS SUMMARY | 2022-01-01 09:33 | XMS_ITS | Encounter Summary ---
:1955 Author Organization [place] Address [facility] [place] [address] Care Team Providers Name Role Phone Unavailable Primary Care Provider Unavailable Encounter Details Date Type Department Care Team Description 03/04/2009 Consultation [facility] [place] [facility] [address] [facility] [place], [place] [address] (Wo rk) Social History Tobacco Use Types [...] extremities intact grossly in all 4 extremities, highway maintenance supervisor is 5/5 bilaterally. LABORATORY DATA: His comprehensive metabolic battery was normal with the exception of glucose whichis elevated to 210. His TSH was 2.8. His GGT was 48. Records from [facility] indicated his CBC was normal, and [...] dougie Name: JETT GEORGES MRN: [id number] Account: [id number] : 1955 Consult Date: 03/04/2009 Document: [id number] cc: Shukri Becker DO documented in this encounter Plan of Treatment Not on filedocumented as of this encounter Visit Diagnoses Not on filedocumented in this encounter
--- OUTSIDE RECORDS SUMMARY | 2022-01-01 09:33 | XMS_ITS | Encounter Summary ---
:1955 Author Organization [place] Address [facility] [place] [address] Care Team Providers Name Role Phone Unavailable Primary Care Provider Unavailable Encounter Details Date Type Department Care Team Description 03/03/2009 Historic Driver Supervisor [facility] Stewart DO [facility] [address] [facility] [place] [address] (Wo rk) Social History Tobacco Use Types Packs/Day Years Used Date Never Assessed Sex Assigned at Date Recorded Not on file documented as of this encounter Progress Notes Interface, Driver Supervisor - 04/24/2011 7:16 AM INTAKE NURSE FINAL CHIEF COMPLAINT: My family was concerned about me. HISTORY OF PRESENT ILLNESS: Jett Georges is a 53-year-old white male who presented to [facility] [place], secondary to increased depression. The patient also states that he was hoping to come into the hospital so he could get on disability. Patient does report a 3-year history of depression and anxiety. He states that it all started when he stopped smoking. He states that he recently talked to a fire tender and the fire tender has convinced him that it was all [...] patient states that he grew up in [place], [place]. He did graduate from high school. [...] coordination are all within normal limits. DIAGNOSES: Hart I: Major depressive disorder, recurrent, severe without psychotic features. Benzodiazepine dependency and possible alcohol abuse. Hart II: Deferred. Hart III: As per Internal Medicine. Hart IV: Poor insight into his mental health issues. Hart V: GAF: 40. PLAN AND RECOMMENDATIONS: At this time will adjust his antidepressant medications. Will take him off his Ativan with a phenobarbital taper. Will use Seroquel to help control his anxiety. Will get the patient connected with outpatient psychiatry and therapy. Electronically signed on 03/30/2009 22:52 by BLAS CATES DO MT: niecy Name: JETT GEORGES Account: [id number] : 1955 Admitted: [id number] Document: [id number] KE NURSE documented in this encounter Plan of Treatment Not on filedocumented as of this encounter Visit Diagnoses Not on filedocumented in this encounter
--- OUTSIDE RECORDS SUMMARY | 2022-01-01 09:33 | XMS_ITS | Encounter Summary ---
:1955 Author Organization [place] Address [address] [place] [address] Care Team Providers Name Role Phone Unavailable Primary Care Provider Unavailable Encounter Details Date Type Department Care Team Description 10/22/2007 Historic Notes INTERFACED REPORT Interface, Transcript on, Social History Tobacco Use Types Packs/Day Years Used Date Never Assessed Sex Assigned at Date Recorded Not on file documented as of this encounter Progress Notes Interface, Shift Foreman - 08/06/2010 9:23 PM CDT Discharge Planning - Discharge From: [facility] - Patient Care Unit: Station 33 - [...] Dr. White call: - Phone number of [facility] [phone] patient should call: Other Discharge Education, Materials, [...] Materials, and Instructions, Follow Up Care Interface, Shift Foreman - 08/06/2010 9:23 PM CDT BARIATRIC SURGERY [...]
--- OUTSIDE RECORDS SUMMARY | 2022-01-01 09:33 | XMS_ITS | Encounter Summary ---
:1955 Author Organization [place] Address [facility] [place] [address] Care Team Providers Name Role Phone Unavailable Primary Care Provider Unavailable Encounter Details Date Type Department Care Team Description 11/12/2007 Historic Notes INTERFACED REPORT Interface, Transcript onMD Social History Tobacco Use Types Packs/Day Years Used Date Never Assessed Sex Assigned at Date Recorded Not on file documented as of this encounter Progress Notes Interface, Gardener Florist - 08/06/2010 8:24 PM CDT BARIATRIC PROGRESS [...]
--- OUTSIDE RECORDS SUMMARY | 2022-01-01 09:33 | XMS_ITS | Encounter Summary ---
:1955 Author Organization [place] Address [address] [place] [address] Care Team Providers Name Role Phone Unavailable Primary Care Provider Unavailable Encounter Details Date Type Department Care Team Description 03/08/2009 Historic Results [facility] [address] [facility] [place] [address] (Wo rk) Social History Tobacco Use Types [...]
--- OUTSIDE RECORDS SUMMARY | 2022-01-01 09:33 | XMS_ITS | Encounter Summary ---
:1955 Author Organization [place] Address [facility] [place] [address] Care Team Providers Name Role Phone Mario Keith MD Primary Care Provider [phone] Encounter Details Date Type Department Care Team Description 07/20/2020 Telephone [facility] Surgical [facility] [address] [place] [address] Social History Tobacco Use Types [...] call back if he changes his mind. ST ECOLOGY PROFESSOR Telephone Encounter - Toni Aponte - 07/20/2020 3:53 PM CST Wero Moser, Pt had bypass 2007 (said at our system, but I don't see here or HE). He's heard that he can get a lap band on top of it... I explained the unlikeliness of that. But also that you might discuss a revision. bmi 40.4 OK to leaved detailed VM ST ECOLOGY PROFESSOR documented in this encounter Plan of Treatment Not on filedocumented as of this encounter Visit Diagnoses Not on filedocumented in this encounter Care Teams Lead Material Handler Relationship Specialty Start Date End Date Mario Keith MD PCP - General Internal Medicine 11/28/17 [facility] [address] [place] [address] documented as of this encounter
--- OUTSIDE RECORDS SUMMARY | 2022-01-01 09:33 | XMS_ITS | Encounter Summary ---
:1955 Author Organization [place] Address [address] [place] [address] Care Team Providers Name Role Phone Unavailable Primary Care Provider Unavailable Reason for Visit Reason Onset Date Comments Pt. Information/instruction 10/27/2012 Other Encounter Details Date Type Department Care Team Description 10/27/2012 Telephone Surgery Clinic Gaby Hicks, Pt. Samaria RN Information/instructio [address]; 1st Floor, Clinic [address] [place] [address] [phone] Social History Tobacco Use Types Packs/Day Years [...] had surgery done with Dr White out [facility] in 2007. 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 Pt has since gained weight back and is wondering about getting the ring surgery done to help him lose weight again. Pt wondering if any of the physicians here will do the ring surgery Pls call pt back to answer questions [phone] Thanks Coordinator talked to patient. Informed patient [...]
--- OUTSIDE RECORDS SUMMARY | 2022-01-01 09:33 | XMS_ITS | Encounter Summary ---
:1955 Author Organization [place] Address [address] [place] [address] Care Team Providers Name Role Phone Unavailable Primary Care Provider Unavailable Encounter Details Date Type Department Care Team Description 03/07/2009 Historic Notes INTERFACED REPORT Blas Becker DO [facility] [address] [facility] [address] [place] [address] (Wo rk) Social History Tobacco Use Types Packs/Day Years Used Date Never Assessed Sex Assigned at Date Recorded Not on file documented as of this encounter Progress Notes Interface, Pharmaceutical Salesperson - 08/05/2010 5:36 PM CDT Problem List [...]
--- OUTSIDE RECORDS SUMMARY | 2022-01-01 09:33 | XMS_ITS | Encounter Summary ---
:1955 Author Organization [place] Address [facility] [place] [address] Care Team Providers Name Role Phone Mario Keith MD Primary Care Provider [phone] Encounter Details Date Type Department Care Team Description 11/28/2017 Surgery - [facility] Ann moreira MD OR [address] [place] [address] [address] [facility] N [phone] [address] [place], [place] [address] Social History Tobacco Use Types [...] on filedocumented in this encounter Care Teams Bioprocessing Manufacturing Technician Relationship Specialty Start Date End Date Mario Keith MD PCP - General Internal Medicine 11/28/17 [facility] [address] [place] [address] documented as of this encounter
--- OUTSIDE RECORDS SUMMARY | 2022-01-01 09:33 | XMS_ITS | Encounter Summary ---
:1955 Author Organization [place] Address [address] [facility] [place] [address] Care Team Providers Name Role Phone Unavailable Primary Care Provider Unavailable Encounter Details Date Type Department Care Team Description 10/21/2007 Results Only [facility] Kalpana Ram, [facility] PA-C Results SURGICAL CONSULT [facility] [address] [facility] [address] [place], [place] [address] (Wo rk) Social History Tobacco Use Types [...]
--- OUTSIDE RECORDS SUMMARY | 2022-01-01 09:33 | XMS_ITS | Encounter Summary ---
:1955 Author Organization [place] Address [facility] [place] [address] Care Team Providers Name Role Phone Mario Keith MD Primary Care Provider [phone] Encounter Details Date Type Department Care Team Description 06/20/2012 Abstract [facility] Weight Erica Rodriguez, [facility] Ed lexis PA-C [address] [place] [address] [place] [address] [phone] Social History Tobacco Use Types Packs/Day Years Used Date Never Assessed Sex Assigned at Date Recorded Not on file documented as of this encounter Plan of Treatment Not on filedocumented as of this encounter Visit Diagnoses Not on filedocumented in this encounter Care Teams Table Maker Relationship Specialty Start Date End Date Mario Keith MD PCP - General Internal Medicine 11/28/17 [facility] [address] [place] [address] documented as of this encounter
--- OUTSIDE RECORDS SUMMARY | 2022-01-01 09:33 | XMS_ITS | Encounter Summary ---
:1955 Author Organization [place] Address [address] [place] [address] Care Team Providers Name Role Phone Unavailable Primary Care Provider Unavailable Encounter Details Date Type Department Care Team Description 10/21/2007 Historic Results INTERFACED REPORT Alireza White MD [address] [facility] [address] [place], [place] [address] (Wo rk) Social History Tobacco Use Types [...] SANTOS - BELELO POCT Performing Organization Address [facility] Phon e Number MISYS (ABNORMAL) Glucose by meter (10/21/2007 6:04 PM CDT) P athologist Signature Glucose 111 (H) 60 - 99 MISYS mg/dL Specimen Anatomical Collection Method Collection Time Receive d Time (Source) Location / / Volume Laterality 10/21/2007 6:04 PM 8 CDT 10:46 PM CDT Alireza SANTOS - BELELO POCT Performing Organization Address [facility] Phon e Number MISYS (ABNORMAL) Glucose by meter (10/21/2007 11:35 AM CDT) P athologist Signature Glucose 134 (H) 60 - 99 MISYS mg/dL Specimen Anatomical Collection Method Collection Time Receive d Time (Source) Location / / Volume Laterality 10/21/2007 11:35 10/21/2007 AM CDT 10:46 PM CDT Alireza SANTOS - ENEDINA POCT Performing Organization Address [facility] Phon e Number MISYS (ABNORMAL) Hemoglobin (10/21/2007 10:05 AM CDT) P athologist Signature Hemoglobin 12.1 (L) 13.3 - 17.7 MISYS g/dL Specimen (Source) Anatomical Collection Method Collection Time Re ceived Time Location / / Volume Laterality 10/21/2007 10:05 10/21/2007 AM CDT Kalpana Ram PA-C LAB - BLOOD ORDERABLES Performing Organization Address City/[facility] Phon e Number MISYS (ABNORMAL) Electrolyte panel [...] LAB - BEAKER POCT Performing Organization Address City/State/[facility] Code Phon e Number MISYS documented in this encounter Visit Diagnoses Not on filedocumented in this encounter
--- OUTSIDE RECORDS SUMMARY | 2022-01-01 09:33 | XMS_ITS | Encounter Summary ---
:1955 Author Organization [place] Address [address] [place] [address] Care Team Providers Name Role Phone Unavailable Primary Care Provider Unavailable Encounter Details Date Type Department Care Team Description 03/04/2009 Historic Results [facility] EugenioShukri [facility] [address] [facility] [place] [address] (Wo rk) Social History Tobacco Use Types [...] LAB - BLOOD ORDERABLES Performing Organization Address City/[facility] Code Phon e Number MISYS Vitamin B12 [...]
--- OUTSIDE RECORDS SUMMARY | 2022-01-01 09:33 | XMS_ITS | Encounter Summary ---
:1955 Author Organization [place] Address [address] [place] [address] Care Team Providers Name Role Phone Unavailable Primary Care Provider Unavailable Encounter Details Date Type Department Care Team Description 03/03/2009 Historic Notes INTERFACED REPORT Interface, Transcript on, Social History Tobacco Use Types Packs/Day Years Used Date Never Assessed Sex Assigned at Date Recorded Not on file documented as of this encounter Progress Notes Interface, Alcohol Still Operator - 08/05/2010 5:47 PM CDT General Information [...] - Second Staff (name) Bud Ruano - psychologist military personnel #1: Leandro Curiel - Relationship to Father patient #1: - Phone 1: [phone] - Patient's spoken language; Frisian or Bilingual communication style Advance Directive - [...] few days Hospitalization - Primary Care Mario Kelly--[facility] Physician - Do you have none restrictions [...] - Do you have yes, 7 yo --non-group home parent but close to responsibility for his [...]
--- OUTSIDE RECORDS SUMMARY | 2022-01-01 09:33 | XMS_ITS | Encounter Summary ---
:1955 Author Organization [place] Address [address] [place] [address]. [place] [address] Care Team Providers Name Role Phone Unavailable Primary Care Provider Unavailable Reason for Visit Reason Onset Date Comments Abstract 05/28/2017 Encounter Details Date Type Department Care Team Description 05/28/2017 Documentation Only [facility] Erica Rodriguez bstract Surgical Weight Loss Paras Be A-Aldo [address] [place] [address] [place] [address] [phone] Social History Tobacco Use Types Packs/Day Years Used Date Never Assessed Sex Assigned at Date Recorded Not on file documented as of this encounter Plan of Treatment Not on filedocumented as of this encounter Visit Diagnoses Not on filedocumented in this encounter
--- OUTSIDE RECORDS SUMMARY | 2022-01-01 09:33 | XMS_ITS | Encounter Summary ---
:1955 Author Organization [place] Address [address] [place] [address] Care Team Providers Name Role Phone Unavailable Primary Care Provider Unavailable Encounter Details Date Type Department Care Team Description 03/06/2009 Historic Results [facility] [address] [facility] [place] [address] (Wo rk) Social History Tobacco Use Types [...]
--- OUTSIDE RECORDS SUMMARY | 2022-01-01 09:33 | XMS_ITS | Encounter Summary ---
:1955 Author Organization [place] Address [address] [place] [address] Care Team Providers Name Role Phone Unavailable Primary Care Provider Unavailable Encounter Details Date Type Department Care Team Description 03/04/2009 Historic Notes INTERFACED REPORT Interface, Transcript onMD Social History Tobacco Use Types Packs/Day Years Used Date Never Assessed Sex Assigned at Date Recorded Not on file documented as of this encounter Progress Notes Interface, Bread Molder - 08/05/2010 5:43 PM CDT General Information - Has NOT attended OT 14:00 as of: Plan - Plan: Encourage attendance and participation. ALISHA Vieyra (OTR)[Signed 15:20] Authored: General Information, Plan documented in this encounter Plan of Treatment Not on filedocumented as of this encounter Visit Diagnoses Not on filedocumented in this encounter
--- OUTSIDE RECORDS SUMMARY | 2022-01-01 09:33 | XMS_ITS | Encounter Summary ---
:1955 Author Organization [place] Address [address] [place] [address] Care Team Providers Name Role Phone Unavailable Primary Care Provider Unavailable Encounter Details Date Type Department Care Team Description 03/04/2009 Historic Notes INTERFACED REPORT David Minaya MD [facility] [address] [facility] [address] (Wo rk) Social History Tobacco Use Types Packs/Day Years Used Date Never Assessed Sex Assigned at Date Recorded Not on file documented as of this encounter Progress Notes Graciela Minaya MD - 08/05/2010 5:44 PM CDT ATTENDING PHYSICIAN - Attending Note: I examined the patient and discussed the case with the physician senior executive assistant student who is severing as a [...]
--- OUTSIDE RECORDS SUMMARY | 2022-01-01 09:33 | XMS_ITS | Encounter Summary ---
:1955 Author Organization [place] Address [address] [place] [address] Care Team Providers Name Role Phone Unavailable Primary Care Provider Unavailable Encounter Details Date Type Department Care Team Description 10/20/2007 Historic Results INTERFACED REPORT Alireza White MD [address] [facility] [address] [place], [place] [address] (Wo rk) Social History Tobacco Use Types [...] LAB - BLOOD ORDERABLES Performing Organization Address [facility] Phon e Number MISYS (ABNORMAL) Glucose by meter (10/20/2007 1:37 PM CDT) P athologist Signature Glucose 136 (H) 60 - 99 MISYS mg/dL Specimen Anatomical Collection Method Collection Time Receive d Time (Source) Location / / Volume Laterality 10/20/2007 1:37 PM 8 6:15 CDT AM CDT Alireza White MD LAB - BEAKER POCT Performing Organization Address [facility] Phon e Number MISYS (ABNORMAL) Glucose (10/20/2007 6:36 AM CDT) P athologist Signature Glucose 125 (H) 60 - 99 MISYS mg/dL Specimen Anatomical Collection Method Collection Time Receive d Time (Source) Location / / Volume Laterality 10/20/2007 6:36 AM 8 6:39 CDT AM CDT Alireza White MD LAB - BLOOD ORDERABLES Performing Organization Address [facility] Phon e Number MISYS Hemoglobin (10/20/2007 6:36 AM CDT) P athologist Signature Hemoglobin 14.0 13.3 - 17.7 MISYS g/dL Specimen Anatomical Collection Method Collection Time Receive d Time (Source) Location / / Volume Laterality 10/20/2007 6:36 AM 8 6:39 CDT AM CDT Alireza White MD LAB - BLOOD ORDERABLES Performing Organization Address [facility] Phon e Number MISYS documented in this encounter Visit Diagnoses Not on filedocumented in this encounter
--- OUTSIDE RECORDS SUMMARY | 2022-01-01 09:33 | XMS_ITS | Encounter Summary ---
:1955 Author Organization [place] Address [address] [place] [address] Care Team Providers Name Role Phone Unavailable Primary Care Provider Unavailable Encounter Details Date Type Department Care Team Description 03/05/2009 Historic Notes INTERFACED REPORT David Minaya MD [facility] [address] [address] [facility] [place], [place] [address] (Wo rk) Social History Tobacco Use Types [...]
[2022-01-01 10:00] VITALS: BP 120/67; PULSE 67; RESP 18; O2SAT 96
[2022-01-01 10:07] LABS: Basophils Percent Auto 0.3 % (0.0-3.0); Eosinophils Percent Auto 0.7 % (0.0-7.0); Hematocrit 28.2 % (37.0-53.0); Hemoglobin* 9.7 gm/dL (13.5-17.5); Immature Granulocytes Abs Auto 0.06 K/uL (0.00-0.30); Lymphocytes Percent Auto 12.1 % (20-44); Mean Corpuscular HGB Conc 34 gm/dL (32-36); Mean Corpuscular Hemoglobin 27 pg (26-34); Mean Corpuscular Volume 80 fL (80-100); Monocytes Percent Auto 11.7 % (0.0-11.0); Neutrophils Percent Auto 74.7 % (42.0-72.0); Platelet Count* 292 K/uL (140-440); RDW Coefficient of Variation % 12.8 % (11.5-15.5); Red Blood Count 3.54 m/uL (4.30-5.90); White Blood Count* 11.28 K/uL (4.50-11.00)
[2022-01-01 10:10] LABS: Slide Review Reflex No
[2022-01-01 10:30] VITALS: BP 140/79; PULSE 65; RESP 18; O2SAT 96
[2022-01-01 10:32] LABS: Chloride* 83 mmol/L (96-114); Potassium* 4.4 mmol/L (3.6-5.1)
[2022-01-01 10:35] LABS: Creatinine* 1.1 mg/dL (0.5-1.5); Est. Creatinine Clearance* 69.41; Estimated Glomerular Filt Rate 74 ml/min
[2022-01-01 10:36] LABS: Blood Urea Nitrogen* 12 mg/dL (7-30); Carbon Dioxide* 21 mmol/L (20-32); Glucose* 129 mg/dL (60-115)
[2022-01-01 10:38] LABS: Ethanol* < 0.01 % (0.01-0.03)
[2022-01-01 10:42] LABS: Sodium* 120 mmol/L (135-149)
[2022-01-01 11:30] VITALS: BP 123/104; PULSE 68; RESP 18; O2SAT 95
[2022-01-01] MEDS: 0.9 % SODIUM CHLORIDE 500 ML 500 ML IV (11:31)
[2022-01-01 12:30] VITALS: BP 104/44; PULSE 63; RESP 18; O2SAT 96
--- NOTE | 2022-01-01 13:36 | P.ORCN_ITS ---
History of Present Illness HPI Date Seen: 01/01/22 Consult date: 01/01/22 Requesting physician: Lorenzo Mae Chief complaint: Slurred speech Narrative: Leandro is a 66-year-old male who reportedly came to emergency department with slurred speech. While here, he was found to have some tenderness around his right calf and Orthopedics was consulted for evaluation of this hematoma. This leg is noteworthy as he was diagnosed with a DVT right lower extremity confirmed on 12/29/2021. He was placed on a blood thinner (Eliquis or Xarelto reportedly). In the interim, he does not recall any amaya trauma, but does report ?sliding out of bed twice last night?. Thick he does not recall any clear injury to the calf, but acknowledges this could have been struck during 1 of those events. He has apparently and disability, admitted the [employer] most the day, and does not mobilize very often. He does have diabetes mellitus, but denies alcohol or drug use otherwise. Related Data Home Medications ?Medication ?Instructions ?Recorded ?Confirmed aspirin 81 mg tablet,delayed 81 mg PO QDAY 11/27/21 11/27/21 release ? ? ? lisinopril 20 mg tablet 20 mg PO QDAY 11/27/21 11/27/21 lorazepam 1 mg tablet 1 mg PO QDAY 11/27/21 11/27/21 meloxicam 15 mg tablet 15 mg PO QDAY 11/27/21 11/27/21 metformin 500 mg tablet 1,000 mg PO BID 11/27/21 11/27/21 omeprazole 40 mg capsule,delayed 40 mg PO DAILY 11/27/21 2 release ? ? ? quetiapine 200 mg tablet 200 mg PO QDAY 11/27/21 11/27/21 sertraline 50 mg tablet 50 mg PO QDAY 11/27/21 11/27/21 simvastatin 20 mg tablet 20 mg PO .hs 11/27/21 11/27/21 tamsulosin 0.4 mg capsule 0.4 mg PO QDAY 11/27/21 11/27/21 trazodone 50 mg tablet 50 mg PO . 11/27/21 11/27/21 Previous Rx's ?MedicationF ?Instructions ?Recorded glimepiride 4 mg tablet 4 mg PO QDAY #90 tabs 11/27/21 semaglutide 0.25 mg or 0.5 mg (2 0.25 mg (0.2 mL) subcut QWEEK #1.5 11/27/21 mg/1.5 mL) subcutaneous pen mL ? injector (Ozempic) ? ? sitagliptin 100 mg tablet 100 mg PO QDAY #30 tabs 11/27/21 allopurinol 300 mg tablet 300 mg PO QDAY Gout #90 tabs 12/13/21 tramadol 50 mg tablet 50 - 100 mg PO QDAY PRN pain #90 12/18/21 ? tabs ? gabapentin 300 mg capsule 900 mg PO TID #270 caps 12/20/21 apixaban 5 mg (74 tabs) tablets in See Rx Instructions PO .COMPLEX 12/27/21 a dose pack #74 ea ? Allergies Allergy/AdvReac Type Severity Reaction Status Date / Time No Known Allergies Allergy ? ? Verified 01/01/22 09:17 [facility] PFS Medical History? Abrasion of elbow Back pain Contusion of left upper arm Dyspnea Headache disorder (05/2016) Sprain of left ankle Strain of rotator cuff capsule Surgical History? History of gastric bypass (2008) History of inguinal hernia repair History of tonsillectomy Family History? Brother?? Colon cancer Social History? Narrative:? , 2 adult kids disabled due to joint pains? does not exercise but 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 excessive drinking alcohol- 24 beers/week? non-smoker HX tobacco use Smoking Status:? Former smoker What tobacco products do you use: cigarettes Smoking quit date/years: <= 15 years ago Do you use any of these nicotine containing products:? None How often do you have a drink containing alcohol:? monthly or less How often do you have six or more drinks on one occasion:? Never AUDIT-C Alcohol total score:? 1 Non-prescribed substance use:? denies use REVIEW OF SYSTEMS: Right leg pain and tenderness is noted. Generalized fatigue throughout the days. He reports this may be related to his inactivity. Otherwise, no fevers or chills, no nausea vomiting, no diarrhea or constipation. No history of blood clotting or bleeding disorders outside of the Xarelto/Eliquis which is now thinning his blood due to the DVT diagnosis recently. Remaining 10 point review of systems otherwise negative per the patient's report. [facility] Medical History Abrasion of elbow Back pain Contusion of left upper arm Dyspnea Headache disorder (05/2016) Sprain of left ankle Strain of rotator cuff capsule Surgical History History of gastric bypass (2008) History of inguinal hernia repair History of tonsillectomy Family History Brother Colon cancer Social History Narrative: , 2 adult kids disabled due to joint pains does not exercise but 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 excessive drinking alcohol- 24 beers/week non-smoker HX tobacco use Smoking Status: Former smoker What tobacco products do you use: cigarettes Smoking quit date/years: <= 15 years ago Do you use any of these nicotine containing products: None How often do you have a drink containing alcohol: monthly or less How often do you have six or more drinks on one occasion: Never AUDIT-C Alcohol total score: 1 Non-prescribed substance use: denies use Meds Home Medications and Allergies Home Medications Medication Instructions Recorded Confirmed Type aspirin 81 mg tablet,delayed 81 mg PO QDAY 11/27/21 11/27/21 History release lisinopril 20 mg tablet 20 mg PO QDAY 11/27/21 11/27/21 History lorazepam 1 mg tablet 1 mg PO QDAY 11/27/21 11/27/21 History meloxicam 15 mg tablet 15 mg PO QDAY 11/27/21 11/27/21 History metformin 500 mg tablet 1,000 mg PO BID 11/27/21 11/27/21 History omeprazole 40 mg capsule,delayed 40 mg PO DAILY 11/27/21 11/27/21 History release quetiapine 200 mg tablet 200 mg PO QDAY 11/27/21 11/27/21 History sertraline 50 mg tablet 50 mg PO QDAY 11/27/21 11/27/21 History simvastatin 20 mg tablet 20 mg PO .hs 11/27/21 11/27/21 History tamsulosin 0.4 mg capsule 0.4 mg PO QDAY 11/27/21 11/27/21 History trazodone 50 mg tablet 50 mg PO .hs 11/27/21 11/27/21 History Allergies Allergy/AdvReac Type Severity Reaction Status Date / Time No Known Allergies Allergy Verified 01/01/22 09:17 Ortho Exam Narrative Exam Narrative: Vitals show temp of 97.4?. Pulse of 73. Respirations 18. Blood pressure 120/58 (forearm). 98% on room air. Patient is alert and oriented x3. No acute distress. Nonlabored breathing. He has line in the [facility]. He has difficulty moving around the [facility] due to his size. He dozes off after a brief pause in our conversation but is readily arousable. Exam of the right leg shows ecchymosis around the posterior medial calf. He is tender in this location. The calf is in general firm to the touch compared to the contralateral side which is soft and supple. Palpable DP and PT pulse. The patient is able to actively plantar and dorsiflex his ankle as well as extend and flex his great toe. Passive range of motion of the same especially with extension the great toe or dorsiflexion of the ankle produce mild pain about his calf today. His skin color is consistent with the contralateral side showing a pale skin individual. I do not appreciate any cooled feeling to his toes, but rather it is warm just like his contralateral side. Const Vital Signs, click to edit/add: Vital Signs - 24 hr 01/01/22 08:59 Temperature 97.4 F L Pulse Rate [Left] 73 Respiratory Rate 18 Blood Pressure [Right Forearm] 120/58 L Pulse Oximetry 95 Oxygen Delivery Method Room Air Results Labs Labs: Laboratory Results - last 48 hr 01/01/22 01/01/22 09:50 09:50 WBC 11.28 H RBC 3.54 L Hgb 9.7 L Hct 28.2 L MCV 80 MCH 27 MCHC 34 RDW Coeff of Elaine 12.8 Plt Count 292 Neut % (Auto) 74.7 H Lymph % (Auto) 12.1 L [place] % (Auto) 11.7 H Eos % (Auto) 0.7 Baso % (Auto) 0.3 Neut # (Auto) 8.40 H Lymph # (Auto) 1.40 [place] # (Auto) 1.30 H Eos # (Auto) 0.10 Baso # (Auto) 0.00 Abs Immat Gran (auto) 0.06 Sodium 120 L* Potassium 4.4 Chloride 83 L Carbon Dioxide 21 BUN 12 Creatinine 1.1 Estimated Creat Clear 69.41 Estimated GFR 74 Glucose 129 H Calcium 8.0 L C-Reactive Protein 4.0 H Ethyl Alcohol < 0.01 L Assessment and Plan Assessment and plan (1) Hematoma of leg: Status: Acute (2) Morbid obesity with BMI of 40.0-44.9, adult: Status: Acute (3) Diabetes mellitus: Status: Acute Plan While the patient did come to the emergency department due to reported slurred speech, he does not demonstrate any this during my exam or encounter. Orthopedics was consulted for the right leg issue. When I examine this, I do think he has the hematoma likely related to some superficial mild trauma. But because he is on a blood thinner (Eliquis or Xarelto) due to recent DVT diagnosis on 12/29/2021, I think it puts him at risk for easy bleeding. At this time, my suspicion is for associated pain related to swelling superficially. The patient is able to actively flex and extend toes and ankle. My suspicion for acute compartment syndrome is very low. I would recommend the patient elevate the injured right leg, ice and/or heat for comfort, gentle activity as he tolerates. I would encourage the patient to mobilize his ankle with ankle range of motion. I will also encourage gentle walking and getting out of his bed/chair instead of watching television for as much as he does. I think that gentle activity would be good for his overall condition and this right leg in particular. It would be good for him to follow-up with his primary care physician in the next couple days for ongoing monitoring. Beyond that, his obesity and diabetes mellitus also makes this somewhat of a challenge. His obesity makes it difficult for him to mobilize. However, I think it would be important for him to do. I have encouraged him to pursue weight reduction. He understands but also acknowledges this is likely difficult task for him. Thank you for allowing me to participate in the care of this patient today.
== END 2022-01-01 15:03 | disposition home or self-care (01) ==
PROVIDERS: Emergency Provider Family Medicine; PCP Internal Medicine
DX: I82.401 Acute embolism and thrombosis of unspecified deep veins of right lower extremity (principal); E87.1 Hypo-osmolality and hyponatremia; R53.1 Weakness
CPT/HCPCS: 36415; 70450; 70496; 70498; 80048; 82077; 85025; 86140; 93005; 93971; 96360; 96361; 99285; J7120; Q9967

== ENCOUNTER 2022-02-27 10:56 | Outpatient (CLI) | payer MEDICARE, BC, SELFPAY ==
--- OUTSIDE RECORDS SUMMARY | 2022-02-27 11:01 | XMS_ITS | Encounter Summary ---
:1955 Author Organization [place] Address [facility] [place] [address] Care Team Providers Name Role Phone Mario Keith MD Primary Care Provider [phone] Encounter Details Date Type Department Care Team Description 11/28/2017 - Hospital Encounter [facility] Breien, Prim keya osteoarthritis 11/29/2017 [facility], [address] [facility] ORTHOPAEDICS [place], [place] [address] [facility] [id number] [address] [address] [place], [place] [id number] Social History Tobacco Use Types Packs/Day Years Used Date Smoking Tobacco: Former Smokeless Tobacco: Never Alcohol Use Standard Drinks/Week Comments Yes 3 [...] at discharge: Leandro Curiel Home Medication Instructions [id number] Printed on:11/29/17 1430 Medication Information acetaminophen (TYLENOL) [...] with oral pain medication Marion Romano PA-C [facility] Maria E Russo MD - 11/29/2017 [...] Physical Exam BP (!) 212/109 (Patient Position: Semi-alstno) Pulse 85 Temp 97.6 ??F (36.4 ??C) [...] 35 min Maria E Russo MD. [facility] medicine service Selam Overton RT - 11/28/2017 3:13 PM CDT 11/28/17 1512 NPPV Other SpO2 96 % CPAP CPAP Pt. Owned Device Yes;Clean;Functional (does not bleed in oxygen or use humidity, home unit ) CPAP Pressure (cmH2O) (home settings ) CPAP O2 (L/min or FiO2) 21 Chaz Colindres [facility] - 11/28/2017 8:08 AM CDT Pharmacy Note - Admission Medication History Pertinent Provider Information: N/A Prior To Admission (TELETYPESETTER OPERATOR) med list completed and updated in EMR. TELETYPESETTER OPERATOR Med List Medication Sig Note Last Dose [...] 50mg Information source(s): Patient, [facility] was asked about OTC/herbal products specifically. TELETYPESETTER OPERATOR med list reflects this. Based on the pharmacist???s assessment, the TELETYPESETTER OPERATOR med list information appears reliable Allergies were [...] - for htn, dm2 Leandro Curiel, 1955, [facility] Prd Osteoarthritis of knee [M17.10] PCP: Mario Keith MD, Code status: Full Code Extended Emergency Contact Information Primary Emergency Contact: Alisson Curiel [facility] Relation: [id number]-Gi-Frk Secondary Emergency Contact: Ervin Conner [facility] Relation: Child Assessment and Plan Essential [...] 70 min Maria E Russo MD. [facility] medicine service. documented in this encounter Miscellaneous Notes Op Note - Jennifer Arenas MD - 11/28/2017 11:48 AM CDT Operative Report PATIENT: Leandro Curiel DATE OF SURGERY: 11/28/2017 SURGEON Jennifer Arenas MD. WATER SOFTENER SERVICER AND INSTALLER Joe Strickland PA-C (Expert AUDREY assist was [...] knee with increasing disability. X-rays have shown ofed-in-luga degenerative change in the medial compartment. Has [...] Organization Address City/State/ZIP Code Phon e Number [facility] POCT RESULTS [address] [employer] [facility] [place] [address] Glucose by meter POCT (11/29/2017 7:03 AM CDT) athologist Signature GLUCOSE BY 116 mg/dL 11/29/2017 [facility] METER POCT 7:03 AM CDT [facility] POCT RESULTS Comment: Reference Ranges ? Age [...] Organization Address City/State/ZIP Code Phon e Number [facility] POCT RESULTS 1924 [facility] N [address] Hemoglobin A1c (11/29/2017 6:17 AM CDT) P athologist Signature Hemoglobin A1C 6.0 4.2 - 6.1 11/29/2017 HEALTH % 3:11 PM CDT [facility] Specimen Anatomical Collection Method / Collection Time Recei karin Time (Source) Location / Volume Laterality Blood specimen Venipuncture / 11/29/2017 6:17 11/30/19 18 9:36 (specimen) Unknown AM CDT AM CDT Maria E Russo MD LAB - BLOOD ORDERABLES Performing Organization Address City/State/ZIP Code Phon [place] [address] [address] [facility] (ABNORMAL) CBC with platelets (11/29/2017 6:17 AM CDT) Patholo gist Method Time Signature WBC 7.7 4.0 - 11.0 11/29/2017 [facility] thou/uL 6:27 AM CDT [facility] RBC Count 3.65 (L) 4.40 - 11/29/2017 HEALTH 6.20 6:27 AM CDT [facility] mill/uL [facility] Hemoglobin 10.3 (L) 14.0 - 11/29/2017 HEALTH 18.0 g/dL 6:27 AM T [facility] Hematocrit 30.9 (L) 40.0 - 11/29/2017 HEALTH 54.0 % 6:27 AM CDT [facility] MCV 85 80 - 100 11/29/2017 HEALTH fL 6:27 AM CDT [facility] MCH 28.2 27.0 - 11/29/2017 HEALTH 34.0 pg 6:27 AM CDT [facility] MCHC 33.3 32.0 - 11/29/2017 HEALTH 36.0 g/dL 6:27 AM T [facility] RDW 13.3 11.0 - 11/29/2017 HEALTH 14.5 % 6:27 AM T [facility] Platelet Count 177 140 - 440 11/29/2017 [facility] thou/uL 6:27 AM T [facility] Mean Platelet 9.8 8.5 - 12.5 11/29/2017 HEALTH Volume fL 6:27 AM T [facility] Specimen Anatomical Collection Method / Collection Time Recei karin Time (Source) Location / Volume Laterality Blood specimen Venipuncture / 11/29/2017 6:17 11/30/19 18 6:22 (specimen) Unknown AM CDT AM CDT Maria E Russo MD LAB - BLOOD ORDERABLES Performing Organization Address City/State/ZIP Code Phon e Number [facility] [place] [address] Lab Daniel Howe [address] [place] [address] LABORATORY (ABNORMAL) Basic metabolic panel (11/29/2017 6:17 AM CDT) Analysis Performed At Patho logist Time Signature Sodium 134 (L) 136 - 145 11/29/2017 HEALTH mmol/L 6:42 AM T [facility] Potassium 4.5 3.5 - 5.0 11/29/2017 HEALTH mmol/L 6:42 AM T [facility] Chloride 99 98 - 107 11/29/2017 HEALTH mmol/L 6:42 AM T [facility] Carbon Dioxide 27 22 - 31 11/29/2017 HEALTH (CO2) mmol/L 6:42 AM T [facility] Anion Gap 8 5 - 18 11/29/2017 HEALTH mmol/L 6:42 AM T [facility] Glucose 122 70 - 125 11/29/2017 HEALTH mg/dL 6:42 AM T [facility] Calcium 8.8 8.5 - 10.5 11/29/2017 HEALTH mg/dL 6:42 AM T [facility] Urea Nitrogen 7 (L) 8 - 22 11/29/2017 HEALTH mg/dL 6:42 AM T [facility] Creatinine 0.78 0.70 - 11/29/2017 HEALTH 1.30 mg/dL 6:42 AM T [facility] GFR Estimate If >60 >60 11/29/2017 HEALTH Black mL/min/1.7 6:42 AM T [address] LABORATORY GFR Estimate >60 >60 11/29/2017 HEALTH mL/min/1.7 6:[address] LABORATORY Specimen Anatomical Collection Method / Collection Time Recei karin Time (Source) Location / Volume Laterality Blood specimen Venipuncture / 11/29/2017 6:17 11/30/19 18 6:22 (specimen) Unknown AM CDT AM CDT Narrative [facility] - 11/29/2017 6:42 AM CDT Fasting Glucose reference range is 70-99 mg/dL per [place] [employer] (ADA) chay dela cruz. Maria E Russo MD LAB - BLOOD ORDERABLES Performing Organization Address City/State/ZIP Code Phon e Number [facility] [place] [address] [facility] [address] [facility] [address] [facility] [address] [place] [address] [facility] [address] [address], [facility] Glucose by meter POCT (11/28/2017 9:09 PM CDT) athologist Signature GLUCOSE BY 96 mg/dL 11/28/2017 [employer] [employer] METER POCT 9:09 PM CDT HOSPITAL POCT [...] Organization Address City/State/ZIP Code Phon e Number [facility] POCT RESULTS [address] [place] [address] Glucose by meter POCT (11/28/2017 4:59 PM CDT) athologist Signature GLUCOSE BY 105 mg/dL 11/28/2017 [facility] METER POCT 4:59 PM CDT HOSPITAL POCT [...] Organization Address City/State/ZIP Code Phon e Number [facility] POCT RESULTS [address] [place] [address] Glucose by meter POCT (11/28/2017 11:53 AM CDT) athologist Signature GLUCOSE BY 107 mg/dL 11/28/2017 [facility] METER POCT 11:53 AM CDT HOSPITAL POCT RESULTS Comment: Reference [...] Organization Address City/State/ZIP Code Phon e Number [facility] POCT RESULTS 1924 [facility] N [address] (ABNORMAL) CBC with platelets (11/28/2017 7:46 AM CDT) [facility] gist Method Time Signature WBC 6.6 4.0 - 11.0 11/28/2017 HEALTH thou/uL 7:52 AM CDT [employer] [facility] RBC Count 3.84 (L) 4.40 - 11/28/2017 HEALTH 6.20 7:52 AM CDT [employer] mill/uL [facility] Hemoglobin 10.9 (L) 14.0 - 11/28/2017 HEALTH 18.0 g/dL 7:52 AM CDT [facility] Hematocrit 32.4 (L) 40.0 - 11/28/2017 HEALTH 54.0 % 7:52 AM CDT [facility] MCV 84 80 - 100 11/28/2017 HEALTH fL 7:52 AM CDT [employer] [facility] MCH 28.4 27.0 - 11/28/2017 HEALTH 34.0 pg 7:52 AM CDT [employer] [facility] MCHC 33.6 32.0 - 11/28/2017 HEALTH 36.0 g/dL 7:52 AM CDT [facility] [facility] RDW 13.5 11.0 - 11/28/2017 HEALTH 14.5 % 7:52 AM CDT [employer] [facility] Platelet Count 221 140 - 440 11/28/2017 HEALTH thou/uL 7:52 AM CDT [employer] [facility] Mean Platelet 9.9 8.5 - 12.5 11/28/2017 [facility] Volume fL 7:52 AM CDT [facility] Specimen Anatomical Collection Method / Collection Time Recei karin Time (Source) Location / Volume Laterality Blood specimen Venipuncture / 11/28/2017 7:46 11/29/19 18 7:50 (specimen) Unknown AM CDT AM CDT Joe Strickland PA-C LAB - BLOOD ORDERABLES Performing Organization Address City/State/ZIP Code Phon e Number [facility] [place] [address] [address] [place], [place] [address] LABORATORY EXTRA GREEN TOP (LITHIUM [...] athologist Signature GLUCOSE BY 106 mg/dL 11/28/2017 [facility] METER POCT 7:45 AM CDT HOSPITAL POCT [...] Organization Address City/State/ZIP Code Phon e Number [facility] POCT RESULTS 1924 [facility] N [address] LAB RESULT - HIM SCAN (11/28/2017) Narrative [...] leg documented in this encounter Care Teams Production Recovery Operator Relationship Specialty Start Date End Date Mario Keith MD PCP - General Internal Medicine 11/28/17 [facility] [address] [place] [address] documented as of this encounter
--- OUTSIDE RECORDS SUMMARY | 2022-02-27 11:01 | XMS_ITS | Encounter Summary ---
:1955 Author Organization [place] Address [address] [place] [address] Care Team Providers Name Role Phone Unavailable Primary Care Provider Unavailable Encounter Details Date Type Department Care Team Description 03/08/2009 Historic Notes INTERFACED REPORT Interface, Transcript on, Social History Tobacco Use Types Packs/Day Years Used Date Smoking Tobacco: Never Assessed Sex Assigned at Date Recorded Not on file documented as of this encounter Progress Notes Interface, Computer Systems Engineer - 08/05/2010 5:32 PM CDT Summary of Progress and Discharge Plan - Summary: Pt's therapist appt is at [facility] in [place] and pt needs to be their at 12:30 to check in and Terrie (therapist) will need to make the referal for med management. - Symptoms to Report: thoughts of suicide, dial 911 - Lifestyle Adjustment: Do not use drugs or alcohol Psychiatry Follow-Up - Therapist: Terrie Rodríguez - Therapist Address: [address] [place] [address]. - Therapist Phone Number: - Therapist Appointment 01:00 Date/Time: Provider Information - Discharged From: [facility] - Unit: 30 - Unit [...] Avoid alcohol. Resources - Resources Crisis Intervention: 120.905.9568 or [phone] (TTY: 397.803.7476); call anytime for help. [employer] [place] [employer]ness (www.[place].apryl.org):: 366-182-2100 or 282-397-9924. Signatures BRITTNEE HART (Psychotherapist)[Signed 11:59] Authored: Summary of Progress and Discharge Plan, Psychiatry Follow-Up Mariann Sierra (RN)[Signed 11:45] Authored: Summary of Progress and Discharge Plan, Provider Information, Discharge Teaching Checklist, Resources documented in this encounter Plan of Treatment Not on filedocumented as of this encounter Visit Diagnoses Not on filedocumented in this encounter
--- OUTSIDE RECORDS SUMMARY | 2022-02-27 11:01 | XMS_ITS | Encounter Summary ---
:1955 Author Organization [place] Address [address] [facility] [address] Care Team Providers Name Role Phone Unavailable Primary Care Provider Unavailable Reason for Visit Reason Onset Date Comments Patient Request 10/23/2012 Encounter Details Date Type Department Care Team Description 10/23/2012 Telephone [facility] Weight Alireza White MD Patient Request Management Clinic [facility] [address] [place] [place] [place] [address] [address] [place] [id number] [phone] Social History Tobacco Use Types Packs/Day Years [...]
--- OUTSIDE RECORDS SUMMARY | 2022-02-27 11:01 | XMS_ITS | Encounter Summary ---
:1955 Author Organization [place] Address [address] [place] [address] Care Team Providers Name Role Phone Unavailable Primary Care Provider Unavailable Reason for Visit Reason Onset Date Comments Clinic Care Coordination - Initial 02/27/2016 Encounter Details Date Type Department Care Team Description 02/27/2016 Telephone General Surgery Gaby Sanford, Clinic Care [address] [facility] RN Coordination - Initial 4th Floor [address] [id number] [place], [place] [phone] (Wo rk) Social History Tobacco Use Types Packs/Day Years Used Date Smoking Tobacco: Never Assessed Sex Assigned at Date Recorded Not on file documented as of this encounter Miscellaneous Notes Telephone Encounter - Gaby Sanford RN - 02/27/2016 3:25 PM CDT Referral from [employer] website. Patient has history of RYGB, would not be a candidate for the intragastric balloon. Encourage patient to set up appt for medical weight management. Contact information given. documented in this encounter Plan of Treatment Not on filedocumented as of this encounter Visit Diagnoses Not on filedocumented in this encounter
--- OUTSIDE RECORDS SUMMARY | 2022-02-27 11:01 | XMS_ITS | Encounter Summary ---
:1955 Author Organization [facility] Address [address] [place] [address] Care Team Providers Name Role Phone Unavailable Primary Care Provider Unavailable Reason for Visit Reason Onset Date Comments Pt. Information/instruction 10/27/2012 Other Encounter Details Date Type Department Care Team Description 10/27/2012 Telephone Surgery Clinic Gaby Hicks, Pt. Samaria WAITE Information/instructio Building [address] [facility] [address]; 1st Floor, Clinic [address] [place] [id number] [phone] Social History Tobacco Use Types Packs/Day Years [...] had surgery done with Dr White out [facility] in 2007. 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 Pt has since gained weight back and is wondering about getting the ring surgery done to help him lose weight again. Pt wondering if any of the physicians here will do the ring surgery Pls call pt back to answer questions [phone] Thanks Coordinator talked to patient. Informed patient [...]
--- OUTSIDE RECORDS SUMMARY | 2022-02-27 11:01 | XMS_ITS | Encounter Summary ---
:1955 Author Organization [facility] [place] Address [address] [place] [address] Care Team Providers Name Role Phone Unavailable Primary Care Provider Unavailable Encounter Details Date Type Department Care Team Description 03/07/2009 Historic Notes INTERFACED REPORT Interface, Transcript onMD Social History Tobacco Use Types Packs/Day Years Used Date Smoking Tobacco: Never Assessed Sex Assigned at Date Recorded Not on file documented as of this encounter Progress Notes Interface, Tug Captain - 08/05/2010 5:35 PM CDT General Information - Has NOT attended OT 13:00 as of: Plan - Plan: Continue to invite to groups to assess. ESTER Nicholson (MILLER)[Signed 12:38] Authored: General Information, Plan documented in this encounter Plan of Treatment Not on filedocumented as of this encounter Visit Diagnoses Not on filedocumented in this encounter
--- OUTSIDE RECORDS SUMMARY | 2022-02-27 11:01 | XMS_ITS | Encounter Summary ---
:1955 Author Organization [facility] Address [address] [place] [address] Care Team Providers Name Role Phone Mario Keith MD Primary Care Provider Encounter Details Date Type Department Care Team Description 07/20/[address] [facility] [address] [place] [address] Social History Tobacco Use Types [...] call back if he changes his mind. PRESIDENT NETWORK Telephone Encounter - Toni Aponte - 07/20/2020 3:53 PM CST Wero Moser, Pt had bypass 2007 (said at our system, but I don't see here or HE). He's heard that he can get a lap band on top of it... I explained the unlikeliness of that. But also that you might discuss a revision. bmi 40.4 OK to leaved detailed VM [employer]IDENT NETWORK documented in this encounter Plan of Treatment Not on filedocumented as of this encounter Visit Diagnoses Not on filedocumented in this encounter Care Teams Top Icer Relationship Specialty Start Date End Date Mario Keith MD PCP - General Internal Medicine 11/28/17 [facility] [address] [place] [address] documented as of this encounter
--- OUTSIDE RECORDS SUMMARY | 2022-02-27 11:01 | XMS_ITS | Encounter Summary ---
:1955 Author Organization [facility] Address [address] [place] [address] Care Team Providers Name Role Phone Unavailable Primary Care Provider Unavailable Encounter Details Date Type Department Care Team Description 03/07/2009 Historic Notes INTERFACED REPORT Blas Cates DO [facility] [address] [facility] [address] [place] [address] (Wo rk) Social History Tobacco Use Types Packs/Day Years Used Date Smoking Tobacco: Never Assessed Sex Assigned at Date Recorded Not on file documented as of this encounter Progress Notes Interface, Wedding Consultant - 08/05/2010 5:36 PM CDT Problem List [...] Saturday. continue current treatment plan. Signatures BLAS CATES (DO)[Signed 10:42] Authored: Problem List, Interval History, Review of Systems, Mental Status Exam, Labs, VS, Risk Assessment Entered: Problem List, Interval History, Review of Systems, Mental Status Exam, VS, Risk Assessment documented in this encounter Plan of Treatment Not on filedocumented as of this encounter Visit Diagnoses Not on filedocumented in this encounter
--- OUTSIDE RECORDS SUMMARY | 2022-02-27 11:01 | XMS_ITS | Clinical Summary ---
:1955 Author Organization [facility] Address [address] [place] [address] Care Team Providers Name Role Phone Mario Keith MD Primary Care Provider [phone] Allergies Active Allergy Reactions Severity Noted Date [...] this topic Medical Devices Implanted Type Area Log Yard Manager Device Shelf Model / Identifier Expiration Serial / Date Lot Cement Bone Simplex Hv 40g W/O [employer]ra Cement, N/A: YVON 04/18/2019 [id number] / Implanted: Qty: 2 on 11/28/2017 Bone Knee [employer] / [id number] Description: Implanted into bilateral kn ees Persona Partial Knee System Partial Bárbara cular Surface Left Medial Size J 8mm Thickness Total Joint Left: [employer] 08/17/2021 [id number] / Implanted: Qty: 1 on 11/28/2017 Component/Insert Knee / [id number] Insurance Payer Benefit Plan / Subscriber ID Effective Phone Address T ype Group Dates BC[place] [id number] 2018-Prese [phone] [address] [id number] [address] [place] [address] MEDICARE MEDICARE [id number] 2012-Pres [phone] ATTN JAMAAL [place] Medicare ent 40 [address] [place] [address] Advance Directives For more information, please contact: [phone] Latest Code Status on File Code Status Date Activated Date Inactivated Comments Full Code 03/03/2021 3:38 PM 03/06/2021 6:26 PM All basic and advanced life-sustaining interventions are performed as oj ropriate Question Answer Comments Code status determined by: Discussion with patient/ legal de cision maker Care Teams Fashion Buying Internship Relationship Specialty Start Date End Date Mario Keith MD PCP - General Internal Medicine 11/28/17 [facility] [address] [place] [address]
--- OUTSIDE RECORDS SUMMARY | 2022-02-27 11:01 | XMS_ITS | Encounter Summary ---
:1955 Author Organization [facility] Address [address] [place] [address] Care Team Providers Name Role Phone Mario Keith MD Primary Care Provider [phone] Encounter Details Date Type Department Care Team Description [facility]/27[facility] [place] [address] [place] [phone] [place], [place] [phone] Social History Tobacco Use Types Packs/Day Years [...] sitting Prep: ChloraPrep Patient monitoring: heart rate, pipe insulator helper, continuous pulse ox and blood pressure Approach: [...] pressure, heart rate, continuous pulse oximetry and pipe insulator helper Laterality: right Injection technique: ultrasound guided Ultrasound [...] pressure, heart rate, continuous pulse oximetry and pipe insulator helper Laterality: left Injection technique: ultrasound guided Ultrasound [...] on filedocumented in this encounter Care Teams Sleeping Car Service Attendant Relationship Specialty Start Date End Date Mario Keith MD PCP - General Internal Medicine 11/28/17 [facility] [address] [place] [address] documented as of this encounter
--- OUTSIDE RECORDS SUMMARY | 2022-02-27 11:01 | XMS_ITS | Encounter Summary ---
:1955 Author Organization [facility] Address [address] [place] [address] Care Team Providers Name Role Phone Unavailable Primary Care Provider Unavailable Encounter Details Date Type Department Care Team Description 03/08/2009 Historic Results [facility] [address] [place] [address], [address] [place] [address] (Wo rk) Social History Tobacco Use Types [...]
--- OUTSIDE RECORDS SUMMARY | 2022-02-27 11:01 | XMS_ITS | Encounter Summary ---
:1955 Author Organization [facility] Address [facility] [place] [address] Care Team Providers Name Role Phone Mario Keith MD Primary Care Provider Encounter Details Date Type Department Care Team Description 06/20/2012 Abstract [facility] Weight MichaelErica lozano, Management Clinic Ed lexis PA-C [address] [facility] [address] [place] [address] [place] [id number] [phone] Social History Tobacco Use Types Packs/Day Years Used Date Smoking Tobacco: Never Assessed Sex Assigned at Date Recorded Not on file documented as of this encounter Plan of Treatment Not on filedocumented as of this encounter Visit Diagnoses Not on filedocumented in this encounter Care Teams Digital Press Operator Relationship Specialty Start Date End Date Mario Keith MD PCP - General Internal Medicine 11/28/17 [facility] [address] [place] [address] documented as of this encounter
--- OUTSIDE RECORDS SUMMARY | 2022-02-27 11:01 | XMS_ITS | Encounter Summary ---
:1955 Author Organization [facility] Address [address] [place] [address] Care Team Providers Name Role Phone Unavailable Primary Care Provider Unavailable Encounter Details Date Type Department Care Team Description 03/07/2009 Historic Notes INTERFACED REPORT David Minaya MD [facility] [address] [place] [address] (Wo rk) Social History Tobacco [...]
--- OUTSIDE RECORDS SUMMARY | 2022-02-27 11:01 | XMS_ITS | Encounter Summary ---
:1955 Author Organization [facility] Address [address] [place] [address] Care Team Providers Name Role Phone Unavailable Primary Care Provider Unavailable Reason for Visit Reason Onset Date Comments Abstract 05/28/2017 Encounter Details Date Type Department Care Team Description 05/28/2017 Documentation Only [facility] Erica Rodriguez bstract Surgical Weight Loss [facility] [address] [place] [address] [place] [address] [phone] Social History Tobacco Use Types Packs/Day Years Used Date Smoking Tobacco: Never Assessed Sex Assigned at Date Recorded Not on file documented as of this encounter Plan of Treatment Not on filedocumented as of this encounter Visit Diagnoses Not on filedocumented in this encounter
--- OUTSIDE RECORDS SUMMARY | 2022-02-27 11:01 | XMS_ITS | Encounter Summary ---
:1955 Author Organization [facility] Address [address] [place] [address] Care Team Providers Name Role Phone Mario Keith MD Primary Care Provider [phone] Reason for Referral Consultation (Routine) Specialty Diagnoses / Procedures Referred By Contact Refer red To Contact Senthil Zhao MD [address] [place] [address] Referral ID Status Reason Start Date Expiration Date Visits Requ ested Visits [facility]) Specialty Diagnoses / Procedures Referred By Contact Refer red To Contact Senthil Zhao MD [address] [place] [address] Referral ID Status Reason Start Date Expiration Date Visits Requ ested Visits Authorized [facility] Health Therapies & Aides (Routine) Specialty Diagnoses / Procedures Referred By Contact Refer red To Contact Senthil Zhao MD [address] [place] [address] Referral ID Status Reason Start Date Expiration Date Visits Requ ested Visits Authorized Reason for Visit Reason Comments One-sided Weakness Auth/Cert Specialty Diagnoses / Procedures Referred By Contact Refer red To Contact EMERGENCY MEDICINE Diagnoses Acute right-sided weakness Acute right-sided weakness Emergency Dept [address] [place] [address] Phone: Fax: Referral ID Status Reason Start Date Expiration Date Visits Requ ested Visits Authorized [id number] 1 1 Encounter Details Date Type Department Care Team Description 03/03/2021 - Emergency [facility] Deandre Alvarez Cla, MD [facility] [address] [place], [place] [phone] 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) (Primary Dx); 03/06/2021 [place] [address] Medical Sandeep Nunez DO [address] [place] [address] Acute right-sided weakness; Surgical Romaine Eng MD [address] [place] [address] JUSTIN (generalized anxiety disorder); [address] [facility] [place] [address] Social History Tobacco Use Types [...] Zhao MD - 03/06/2021 3:38 PM CDT [facility] Discharge Summary Hospitalist Date of Admission: 03/03/2021 [...] Your activity upon discharge: activity as tolerated face to face encounter Documentation of Face to Face and Certification for Home Health Services I certify that patient: Jett Georges II is under my care and that I, or a nurse practitioner or physician's clinical services assistant working with me, had a wypl-vy-wpmo encounter that meets the physician nawi-qu-zhfe encounter requirements with this patient on: 03/05/2021. [...] effort and are for medical reasons or jainism services or infrequently or of short duration when for other reasons) because: Patient is bedbound due to: fall risk, unsteady gait. Based on the above findings. I certify that this patient is confined to the home and needs intermittent residential care, physical therapy and/or speech therapy. The patient is under my care, and susana initiated the establishment of the plan of care. This patient will be followed by a physician who will periodically review the plan of care. Physician/Provider to provide follow up care: Mario Keith Attending [facility] physician (the Medicare certified [facility] provider): Senthil Zhao MD Physician Signature: See [...] next 24-48 hours, Please call them at [phone] documented in this encounter Medications at Time [...] Plan: discharge home 03/06 Bedside Nurse: Bhavesh Lynn RN Praful Gaytan MD - 03/05/2021 2:52 [...] EMG. Praful Gaytan MD (general neurology) pgr [phone] Senthil Zhao MD - 03/05/2021 2:35 PM CDT [facility] Hospitalist Progress Note Assessment & Plan Jett [...] EXAM: MR CERVICAL SPINE W/O CONTRAST LOCATION: [facility] DATE/TIME: 03/05/2021 10:42 AM INDICATION: Cervical radiculopathy. 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 Family to transport aSndhya Wood YOKO Heath Bhavesh Lynn RN - 03/04/2021 6:06 PM [...] Adds Type of Visit Initial PT Evaluation Serologist Serologist Present no Language Micronesian Living Environment People in home alone Current [...] Living Environment Comments Pt. lives alone in [facility] with bedroom upstairs and railing on [...] alone Current Living Arrangements other (see comments) ([address] [place] [address]) Home Accessibility stairs to enter home;stairs within home Number of Stairs, Main Entrance 2 Stair Railings, Main Entrance railing on right side (ascending) Number of Stairs, Within Home, Primary greater than 10 stairs Stair Railings, Within Home, Primary railing on right side (ascending) Transportation Anticipated car, drives self;family or friend will provide Living Environment Comments Pt. lives alone in [facility] with bedroom upstairs and railing on [...] of Daily Living BADL Assessment toileting Toileting [place] Level (Toileting) supervision;set up;assist of 2;moderate assist [...] Needs Upon Discharge (OT) gait belt;raised toilet seat;ham curer;shower chair;tub bench;commode chair Risk & Benefits of [...] UE strength. Pt. lives alone [place] [facility] with 2 stairs to enter and [...] from the original note were not included. [facility] Hospitalist Progress Note Admit 03/03/2021 9:44 AM Name: Jett Georges II Provider: Romaine Eng MD, [facility] Date of Service: 03/04/2021 Reason for Stay [...] ?? #Hypertension-blood pressure stable for now, resume SPORTS OFFICIAL lisinopril 20 mg, ?? #Anxiety-depression --Per pharmacy records he is on Zoloft daily, Seroquel 200 mg nightly, lorazepam as needed --Given his grogginess I will resume his Zoloft and SPORTS OFFICIAL Seroquel for now but hold off on [...] Holder PA-C - 03/03/2021 2:41 PM CDT [facility] Admission History and Physical Examination NAME: [...] the head/neck were negative but CT perfu floers scan did show questionable perfusion abnormality in [...] repeat #Hypertension-blood pressure stable for now, resume SPORTS OFFICIAL lisinopril 20 mg, #Anxiety-depression --Per pharmacy records he is on Zoloft daily, Seroquel 200 mg nightly, lorazepam as needed --Given his grogginess I will resume his Zoloft and SPORTS OFFICIAL Seroquel for now but hold off on [...] phone. May need TCU, acute rehab or HH Carli Holder PA-C Primary Care Physician Mario [...] Joseph Ramesh MD; Location: [facility]; Service: Orthopedics ??? GASTRIC BYPASS ??? HERNIA [...] Allergies Allergen Reactions ??? Zyban [Bupropion Hydrobromide] Hivreal Social History Patient retired. He was a [...] plaque. There is no stenosis or dissection. [place]: There is some mild calcific [...] ID: DLOES Recent Labs Lab 03/03/21 0958 03/03/21 0948 WBC 13.3* -- HGB 12.4* -- MCV [...] -- TROPONIN <0.015 -- Carli Holder PA-C [facility] Medicine March 03, 2021 Securely message with the [employer] Console (learn more here) Text page via [employer] Paging/Directory Associated attestation - Sandeep Nunez DO [...] prior to expected discharge back home. Sandeep Deshpandejohn Date of Service (when I saw the patient): 03/03/21 documented in this encounter Consult Notes Veronica Murrell PA-C - 03/06/2021 10:51 AM CDTAssociated Order(s): ORTHOPEDIC SURGERY IP CONSULT [facility] Orthopedic Consultation Jett Georges II Age: [age] [...] Joseph Ramesh MD; Location: [facility]; Service: Orthopedics ??? GASTRIC BYPASS ??? HERNIA [...] plaque. There is no stenosis or dissection. [place]: There is some mild calcific [...] EXAM: MR CERVICAL SPINE W/O CONTRAST LOCATION: [facility] DATE/TIME: 03/05/2021 10:42 AM INDICATION: Cervical radiculopathy. [...] Negative Ketones Urine Negative Negative mg/dL Specific [place] Urine 1.017 1.003 - 1.035 Blood Urine [...] Range Hold Specimen JIC Extra Green Top ([place] Heparin) Tube Status: None Result Value Ref [...] recent exposure or clinical presentation suggests COVID-19. [facility] Laboratories are certified under the Clinical Laboratory [...] Rate 83 BPM Atrial Rate 83 BPM ID Interval 246 ms QRS Duration 122 ms QT 394 ms QTc 462 ms P [place] 69 degrees R AXIS -72 degrees T [place] 19 degrees Interpretation ECG Sinus rhythm with 1st degree A-V block with occasional Premature ventricular complexes Left anterior fascicular block Abnormal ECG No previous ECGs available Neurology IP Consult: General (non-stroke/non-ICU); Patient to be seen: Routine - within 24 hours; right arm weakness, palsy?; Application Services Manager may enter orders: Yes; Requesting provider? Hospitalist [...] Joseph Ramesh MD; Location: [facility]; Service: Orthopedics ??? GASTRIC BYPASS ??? HERNIA [...] Carli Vogel PA-C, 50 mg at 03/04/21 08 ??? simvastatin (ZOCOR) tablet 20 mg, 20 [...] 75 mg, 75 mg, Oral, At Bedtime, Carli Holder PA-C, 75 mg at 03/03/21 194 Allergies: [...] symmetric movements. MOTOR: Tone is difficult to piper installer, pain or difficulty relaxing complicate the assessment [...] without Contrast Praful Gaytan MD (general neurology) [facility] [phone] 1. Acute right-sided weakness Care Management / Social Work IP Consult Status: None () Narrative Sandhya Heath, CARD BRUSHER 03/04/2021 3:22 PM Care Management Initial Consult General Information Assessment completed with: Patient, Type of CM/SW Visit: Initial Assessment Primary Care Provider verified and updated as needed: Readmission within the last 30 days: no previous admission in last 30 days Reason for Consult: discharge planning Communication Assessment Patient's communication style: spoken language (Micronesian or Bilingual) Hearing Difficulty or Deaf: no [...] find to accept referral SW went to [employer] web site.. Called home care agencies but had to navigate through bilingual medical receptionist services SW [facility] [phone] . Requested PT/OT CHURCH ADMINISTRATOR support for pt. They could provide start of care on Saturday Will fax face sheet and H&P over today and final d.c orders tomorrow Pt stated he will call his son for a ride home tomorrow. 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 Hospitalist (if different from attending physician... Status: None () Narrative Jairo Buckley PA-C 03/05/2021 4:01 PM [facility] Neurosurgery Consultation Date of Admission: 03/03/2021 Date [...] follow up with further consultation recommendations. Jairo Howe [facility] Neurosurgery [address] [place] [address] Pager [phone] Code Status Full Code Reason for Consult [...] Joseph Ramesh MD; Location: [facility]; Service: Orthopedics ??? GASTRIC BYPASS ??? HERNIA [...] Left: 5/5 interosseus : Right: 5/5 Left: 5 Hip Flexor: Right: 09/21 Left: 5 Hip Adductor: Right: 09/21 Left: 5 Hip Abductor: Right: 09/21 Left: 09/21 Gastroc Soleus: Right: 09/21 Left: 09/21 Tib/Ant: [...] Status --------- ------ CBC with platelets and d...[[id number]] Abnormal Final result Please view results for these tests on the individual orders. Extra Tube ([place] Draw) Status: None Narrative The following orders were created for panel order Extra Tube ([place] Draw). Procedure Abnormality Status --------- ------ Extra Blue Top Tube[[id number]] Final result Extra Green Top ([place]...[[id number]] Final result Extra Purple Top Tube[[id number]] Final result Please view results for these [...] Veronica Murrell PA-C Associated attestation - Robin eDgroot MD - 03/07/2021 12:43 PM CDT Physician Attestation I agree with the information in this note. Jairo Sy PA-C - 03/05/2021 2:30 PM CDTAssociated Order(s): SPINE SURGERY ADULT IP CONSULT [facility] Neurosurgery Consultation Date of Admission: 03/03/2021 Date [...] with further consultation recommendations. Jairo Buckley PA-C [facility] Neurosurgery [place] [address] Pager [phone] Code Status Full Code Reason for Consult [...] Joseph Ramesh MD; Location: [facility]; Service: Orthopedics ??? GASTRIC BYPASS ??? HERNIA [...] personally see this patient today. Sandhya Heath, CARD BRUSHER - 03/04/2021 3:22 PM CDTAssociated Order(s): CARE MANAGEMENT / SOCIAL WORK IP CONSULT Care Management Initial Consult General Information Assessment completed with: Patient, Type of CM/SW Visit: Initial Assessment Primary Care Provider verified and updated as needed: Readmission within the last 30 days: no previous admission in last 30 days Reason for Consult: discharge planning Communication Assessment Patient's communication style: spoken language (Micronesian or Bilingual) Hearing Difficulty or Deaf: no [...] Resources: Home Care Pt is refusing TCU.. Jacob spoke with pt about consideration for home [...] find to accept referral SW went to [employer] web site.. Called home care agencies but had to navigate through bilingual medical receptionist services SW [facility] [phone] . Requested PT/OT CHURCH ADMINISTRATOR support for pt. They could provide start [...] Joseph Ramesh MD; Location: [facility]; Service: Orthopedics ??? GASTRIC BYPASS ??? HERNIA [...] Daily, Holder, LUCIEN Bangura, 15 mg at 03/04/21804 ??? naloxone (NARCAN) injection 0.2 mg, 0.2 [...] injection4 mg, 4 mg, Intravenous, Q6H PRN, Glory, Carli Vogel PA-C ??? QUEtiapine (SEROquel) tablet 200 mg, 200 mg, Oral, At Bedtime, Holder, Carli Vogel PA-C, 200 mg at 03/03/211943 ??? senna-docusate (SENOKOT-S/PERICOLACE) 8.6-50 MG per tablet 1 tablet, 1 tablet, Oral, BID PRN OR senna-docusate (SENOKOT-S/PERICOLACE) 8.6-50 MG per tablet 2 tablet, 2 tablet, Oral, BID PRN, Carli Holder PA-C ??? sertraline (ZOLOFT) tablet 50 mg, 50 mg, Oral, Daily, Carli Holder PA-C, 50 mg at 03/04/21 0806 ??? simvastatin (ZOCOR) tablet 20 mg, 20 mg, Oral, Daily with supper, Carli Holder PA-C, 20 mg at 03/03/21 1758 ??? [...] 75 mg, 75 mg, Oral, At Bedtime, HolderCarli pinto PA-C, 75 mg at 03/03/21 194 Allergies: [...] symmetric movements. MOTOR: Tone is difficult to piper installer, pain or difficulty relaxing complicate the assessment [...] Contrast Praful Gaytan MD (general neurology) pgr [phone] 1. Acute right-sided weakness documented in this encounter ED Notes Bhavesh Lynn RN - 03/03/2021 12:16 PM CDT [facility] ED Nurse Handoff Report Jett Georges II is a 65 year old male ED Chief complaint: One-sided Weakness . ED Diagnosis: Final diagnoses: Acute right-sided weakness Allergies: Allergies Allergen Reactions ??? Zyban [Bupropion Hydrobromide] Hives Code Status: Full Code Activity level - Baseline/Home: Independent. Activity Level - Current: Assist X 1. Lift room needed:No. Bariatric: No Serologist Needed: No Isolation: No. Infection: Not Applicable. [...] recent exposure or clinical presentation suggests COVID-19. [facility] Laboratories are certified under the Clinical Laboratory [...] Status --------- ------ CBC with platelets and d...[[id number]] Abnormal Final result Please view results for these tests on the individual orders. EXTRA TUBE Narrative: The following orders were created for panel order Extra Tube ([place] Draw). Procedure Abnormality Status --------- ------ Extra Blue Top Tube[[id number]] Final result Extra Green Top ([place]...[[id number]] Final result Extra Purple Top Tube[[id number]] Final result Please view results for these [...] Unable to fully extend the right wrist. 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 Left upper [...] to prior, dated 11/28/2017. Rate 83 bpm. ID interval 246 ms. QRS duration 122 ms. [...] Status --------- ------ CBC with platelets and d...[[id number]] Abnormal Final result Please view results for these tests on the individual orders. EXTRA TUBE Narrative: The following orders were created for panel order Extra Tube ([place] Draw). Procedure Abnormality Status --------- ------ Extra Blue Top Tube[[id number]] Final result Extra Green Top ([place]...[[id number]] Final result Extra Purple Top Tube[[id number]] Final result Please view results for these tests on the individual orders. Emergency Department Course: Reviewed: I reviewed nursing notes, vitals, past medical history and Care Everywhere Assessments: 0952 I obtained history and examined the patient [...] care of Dr. Nunez. Impression & Plan [facility] Diagnoses: The patient has stroke symptoms: ED [...] hypoglycemia (or hyperglycemia), head or spinal trauma, UTILIZATION REVIEW COORDINATOR infection, Toxin ingestion and shock state (e.g. [...] transport home. Plan of Care - Alisson Penny, OT - 03/06/2021 4:20 PM CDT Occupational Therapy Discharge Summary Reason for therapy discharge: Discharged to home with home therapy. Progress towards therapy goal(s). See goals on Care Plan in [facility] electronic health record for goal details. [...] UE strength. Pt. lives alone [place] [facility] with 2 stairs to enter and [...] discharge home after MRI results Plan of Care - Amelia Kiran RN - 03/06/2021 6:01 [...] Kiran RN Plan of Care - Erika Henley, PT - 03/04/2021 4:49 PM CDT Images from the original note were not included. [facility] OUTPATIENT PHYSICAL THERAPY EVALUATION PLAN OF TREATMENT FOR OUTPATIENT REHABILITATION (COMPLETE FOR INITIAL CLAIMS ONLY) Patient's Last Name, First Name, M.I. Date of : 1955 Jett Georges Provider's Name [facility] Onset Date: 03/03/21 Start of Care Date: 03/04/2021 Type: _X_PT ___OT ___SLP Medical Diagnosis: R-sided weakness PT Diagnosis: Impaired fn mobility Visits from SOC: 1 _ Plan of Treatment/Functional Goals Planned Interventions: bed mobility training, balance training, patient/family education, stair training, strengthening, gait training, neuromuscular re- education, stretching, transfer training Goals: See Physical Therapy Goals on Care Plan in [facility] electronic health record. Therapy Frequency: Daily Predicted Duration of Therapy Intervention: 3 days _ I CERTIFY THE NEED FOR THESE SERVICES FURNISHED UNDER THIS PLAN OF TREATMENT AND WHILE UNDER MY CARE (Physician co-signature of this document indicates review and certification of the therapy plan). , Referring Physician: Sandeep Nunez, DO Initial Assessment See Physical Therapy evaluation dated in [facility] electronic health record. Associated attestation - Romaine Eng MD - 03/04/2021 6:08 PM CDT I CERTIFY THE NEED FOR THESE SERVICES FURNISHED UNDER THIS PLAN OF TREATMENT AND WHILE UNDER MY CARE (Physician co-signature of this document indicates review and certification of the therapy plan). Utilization Review - Nikki Gonzalez MD - 03/04/2021 12:10 PM CDT [facility] Admission Status; Secondary Review Determination Admission [...] Sincerely, Nikki Gonzalez MD MPH Utilization Review [facility]. Plan of Care - Amelia Kiran [...] Medication History - Varinder Daniels [facility] - 03/03/2021 2:10 PM CDT Admission medication history interview status for this patient is complete. See [facility] admission navigator for allergy information, prior to admission medications and immunization status. Medication history interview done, indicate source(s): Patient Medication history resources (including written lists, pill bottles, clinic record):[facility] Pharmacy: [id number] [place], [place] - [address] [address] Changes made to SPORTS OFFICIAL medication list: Added: all meds Changed: trazodone 75 mg TID -> at bedtime Reported as Not Taking: none Removed: none Actions taken by pharmacist (provider contacted, etc):left sticky note for provider Additional medication history information: - Patient may have confused trazodone with tramadol and took about 10 tramadol tablets in total yesterday. - The current medication list was completed to the best of rewriter's ability using available resources (e.g. [employer] dispensing records, Care Everywhere, chart review notes, [...] every 6 hours as needed for pain 03/02/2021t Unknown time Yes Unknown, Entered By History [...] Address City/State/ZIP Code Phon [place] [address] Care Lab [address] Lab (1st floor, no room number) [...] in clude each brachial plexus in the [id number]. JOHN HAWTHORNE MD SYSTEM ID: ??[id number] Narrative 03/06/2021 2:48 PM CDT MRI OF [...] in clude each brachial plexus in the [id number]. JOHN HAWTHORNE MD SYSTEM ID: [id number] Veronica Murrell PA-C IMG MRI ORDERABLES (ABNORMAL) [...] Address City/State/ZIP Code [place] [address] Care Lab [address] Lab (1st floor, no room number) [...] Unknown CDT PM CDT Sandeep HANNAH - ENEDINA POCT Performing Organization Address City/[facility]/ZIP Code [place] [address] Care Lab [address] Lab (1st floor, no room number) [...] 03/05 5:51 Unknown CDT PM CDT Sandeep HANNAH - ENEDINA POCT Performing Organization Address City/State/ZIP Code [place] [address] Care Lab [address] Lab (1st floor, no room number) (ABNORMAL) Glucose by meter (03/05/2021 12:52 PM CDT) P athologist Signature GLUCOSE BY 137 (H) 70 - 99 03/05/2021 [facility] LABORATORY METER POCT mg/dL 12:58 PM CDT POC Specimen Anatomical Collection Method Collection Time Receive d Time (Source) Location / / Volume Laterality Blood BLOOD SPECIMEN / 03/05/2021 12:52 021 Unknown PM CDT 12:58 PM CDT Sandeep PATEL POCT Performing Organization Address City/State/ZIP Code [place] [address] Care Lab [address] Lab (1st floor, no room number) [...] EXAM: MR CERVICAL SPINE W/O CONTRAST LOCATION: [facility] DATE/TIME: 03/05/2021 10:42 AM INDICATION: Cervical radiculopathy. [...] EXAM: MR CERVICAL SPINE W/O CONTRAST LOCATION: [facility] DATE/TIME: 03/05/2021 10:42 AM INDICATION: Cervical radiculopathy. [...] 03/05 7:27 Unknown CDT AM CDT Sandeep Nunez DO Co.Import POCT Performing Organization Address City/[facility]/ZIP Code [place] [address] Care Lab [address] Lab (1st floor, no room number) [...] LAB - BEAKER POCT Performing Organization Address City/[facility]/ZIP Code [place] [address] Care Lab [address] Lab (1st floor, no room number) [...] LAB - BEAKER POCT Performing Organization Address City/[facility]/ZIP Code [place] [address] Care Lab [address] Lab (1st floor, no room number) (ABNORMAL) Glucose by meter (03/04/2021 5:57 PM CDT) P athologist Signature GLUCOSE BY 146 (H) 70 - 99 03/04/2021 [facility] LABORATORY METER POCT mg/dL 6:04 PM CDT POC Specimen Anatomical Collection Method Collection Time Receive d Time (Source) Location / / Volume Laterality Blood BLOOD SPECIMEN / 03/04/2021 5:57 PM 03/04 6:04 Unknown CDT PM CDT Sandeep Nunez DO LAB - BEAKER POCT Performing Organization Address City/[facility]/ZIP Code [place] [address] Care Lab [address] Lab (1st floor, no room number) (ABNORMAL) Glucose by meter (03/04/2021 11:55 AM CDT) P athologist Signature GLUCOSE BY 193 (H) 70 - 99 03/04/2021 [facility] LABORAT[facility] METER POCT mg/dL 12:02 PM CDT POC Specimen Anatomical Collection Method Collection Time Receive d Time (Source) Location / / Volume Laterality Blood BLOOD SPECIMEN / 03/04/2021 11:55 021 Unknown AM CDT 12:02 PM CDT Sandeep Nunez DO LAB - BEAKER POCT Performing Organization Address City/State/ZIP Code [place] [address] Care Lab [address] Lab (1st floor, no room number) [...] City/State/ZIP Code [place] [address] Care Lab [address] Lab (1st floor, no room number) [...] City/State/ZIP Code [place] [address] Care Lab [address] Lab (1st floor, no room number) (ABNORMAL) Basic metabolic panel (03/04/2021 8:02 AM CDT) [facility] Method Time Signature Sodium 132 (L) [...] LAB - BLOOD ORDERABLES Performing Organization Address City/[facility]/[place]IP [place] [address] Care Lab [address] Lab (1st floor, no room number) [...] LAB - BEAKER POCT Performing Organization Address City/[facility]/ZIP Code [place] [address] Care Lab [address] Lab (1st floor, no room number) [...] LAB - BEAKER POCT Performing Organization Address City/[facility]/ZIP Code [place] [address] Care Lab [address] Lab (1st floor, no room number) [...] LAB - BLOOD ORDERABLES Performing Organization Address City/[facility]/ZIP Code [place] [phone] Care Lab [address] Lab (1st floor, no room number) [...] LAB - BLOOD ORDERABLES Performing Organization Address City/[facility]/ZIP Code [place] [phone] Care Lab [address] Lab (1st floor, no room number) [...] Code Phon e [place] [address] Care Lab [address] Lab (1st floor, no room number) [...] 03/03 6:08 Unknown CDT PM CDT Sandeep Deshpandejohn DO LAB - BEAKER POCT Performing Organization Address City/[facility]/ZIP Code Phon e [place] [address] Care Lab [address] Lab (1st floor, no room number) [...] LAB - BLOOD ORDERABLES Performing Organization Address City/[facility]/ZIP [facility] [place]on [place] [phone] Care Lab [address] Lab (1st floor, no room number) [...] LAB - BLOOD ORDERABLES Performing Organization Address City/[facility]/ZIP Code [place] [address] Care Lab [address] Lab (1st floor, no room number) [...] LAB - BLOOD ORDERABLES Performing Organization Address City/[facility]/ZIP Code [place] [address] Care Lab [address] Lab (1st floor, no room number) [...] SYSTEM ID: DLOES Deandre Alvarez MD IMG MRI ORDERABLES Asymptomatic COVID-19 Virus (Coronavirus) by [...] exposure or clinical presentation sugges ts COVID-19. ??[facility] [employer] are certified under the Clinical Laborat ory Improvement Amendments of 1988 (CLIA-88) as qualified to perform moderate and/or high complexity laboratory testing. Deandre Alvarez MD LAB - MICRO GENERAL ORDERABL ES Performing Organization Address City/State/ZIP Code [place] [phone] Care Lab [address] [facility] Lab (1st floor, no room number) (ABNORMAL) UA with Microscopic reflex to Culture (03/03/2021 11:03 AM CDT) [facility] Method Time Signature Color Urine Light Colorless, 03/03/2021 LABORATORY Yellow Straw, 11:28 AM Light CDT Yellow, Yellow Appearance Urine Clear Clear 03/03/2021 LABORATOR Y 11:28 AM CDT Glucose Urine 150 (A) Negative 03/03/2021 LABORATORY mg/dL 11:28 AM CDT Bilirubin Urine Negative Negative 03/03/2021 LABORATORY 11:28 AM CDT Ketones Urine Negative Negative 03/03/2021 LABORATORY mg/dL 11:28 AM CDT Specific [place] 1.017 1.003 - 03/03/2021 LABORATOR Y Urine [...] CDT RBC Urine 1 <=2 /HPF 03/03/2021 [facility] LABORATORY 11:28 AM CDT WBC Urine 1 <=5 /HPF 03/03/2021 LABORATORY 11:28 AM CDT Squamous <1 <=1 /HPF 03/03/2021 LABORATORY Epithelials 11:28 AM Urine CDT Hyaline Casts 1 <=2 /LPF 03/03/2021 LABORATORY Urine 11:28 AM CDT Specimen Anatomical Collection Method Collection Time Receive d Time (Source) Location / / Volume Laterality Urine MID-STREAM URINE Non-blood 03/03/2021 11:03 021 SPECIMEN / Unknown Collection / AM CDT 11:10 AM CDT Unknown Narrative LABORATORY - 03/03/2021 11:28 AM CDT Urine Culture not indicated Deandre Alvarez MD LAB - URINE ORDERABLES Performing Organization Address City/State/ZIP Code [place] [phone] Care Lab [address] Lab (1st floor, no room number) [...] plaque. There is no stenosis or dissection. [place]: There is some mild tracee [...] plaque. There is no stenosis or dissection. [place]: There is some mild tracee [...] RESULTS Atrial Rate 83 BPM RADIOLOGY RESULTS ID Interval 246 ms RADIOLOGY RESULTS QRS Duration 122 ms RADIOLOGY RESULTS QT 394 ms RADIOLOGY RESULTS QTc 462 ms RADIOLOGY RESULTS P [place] 69 degrees RADIOLOGY RESULTS R AXIS -72 degrees RADIOLOGY RESULTS T [place] 19 degrees RADIOLOGY RESULTS Interpretation Sinus rhythm [...] (ABNORMAL) Lipid Profile (03/03/2021 9:58 AM CDT) [facility] Method Time Signature Cholesterol 152 <200 [...] Organization Address City/State/[place] [phone] Care Lab [address] Lab (1st floor, no room number) [...] Organization Address City/State/[place] [address] Care [address] Lab (1st floor, no room number) [...] Address City/State/ZIP Code [place] [address] Care [address] Lab (1st floor, no room number) INR (03/03/2021 9:58 AM CDT) P athologist Signature INR 0.94 0.85 - 1.15 03/03/2021 [facility] LABORATORY 10:36 AM CDT Specimen Anatomical Collection Method / Collection Time Recei karin Time (Source) Location / Volume Laterality Blood STRUCTURE OF LEFT Venipuncture / 03/03/2021 9:58 03/03 UPPER LIMB / Unknown AM CDT 10:07 AM CDT Unknown Deandre Alvarez MD LAB - BLOOD ORDERABLES Performing Organization Address City/[facility]/[place] [address] Care Lab [address] Lab (1st floor, no room number) [...] Organization Address City/State/[place] [address] Care Lab [address] Lab (1st floor, no room number) Extra Green Top ([place] Heparin) Tube (03/03/2021 9:58 AM CDT) P athologist Signature Hold Specimen JIC 03/03/2021 [facility] LABORATORY 11:18 AM CDT Specimen Anatomical Collection Method / Collection Time Recei karin Time (Source) Location / Volume Laterality Blood STRUCTURE OF LEFT Venipuncture / 03/03/2021 9:58 03/03 UPPER LIMB / Unknown AM CDT 10:07 AM CDT Unknown eDandre Alvarez MD LAB - BLOOD ORDERABLES Performing Organization Address City/[facility]/ZIP Code [facility] [place] [address] Care Lab [address] Lab (1st floor, no room number) Extra Blue Top Tube (03/03/2021 9:58 AM CDT) athologist Signature Hold Specimen JI 03/03/2021 [facility] LABORATORY 11:18 AM CDT Specimen Anatomical Collection Method / Collection Time Recei karin Time (Source) Location / Volume Laterality Blood STRUCTURE OF LEFT Venipuncture / 03/03/2021 9:58 03/03 UPPER LIMB / Unknown AM CDT 10:07 AM CDT Unknown Deandre Alvarez MD LAB - BLOOD ORDERABLES Performing Organization Address City/State/[place] [address] Care Lab [address] Lab (1st floor, no room number) (ABNORMAL) CBC with platelets and differential (03/03/2021 9:58 AM CDT) [facility] Method Time Signature WBC Count 13.3 (H) [...] LAB - BLOOD ORDERABLES Performing Organization Address City/[facility]/ZIP Code [place] [phone] Care Lab [address] Lab (1st floor, no room number) [...] LAB - BLOOD ORDERABLES Performing Organization Address City/[facility]/ZIP Code [place] [phone] Care Lab [address] Lab (1st floor, no room number) [...] LAB - BLOOD ORDERABLES Performing Organization Address City/[facility]/ZIP Code [place] [address] Care Lab [address] Lab (1st floor, no room number) [...] LAB - BLOOD ORDERABLES Performing Organization Address City/[facility]/ZIP Code [place] [address] Care [address] Lab (1st floor, no room number) [...] Carbon Dioxide 25 20 - 32 03/03/2021 LABORATORY (CO2) mmol/L 10:36 AM CDT Anion Gap 9 3 - 14 03/03/2021 [facility] LAB[facility]ATORY mmol/L 10:36 AM CDT Urea Nitrogen 11 7 - 30 03/03/2021 [facility] LABORATORY mg/dL 10:36 AM CDT Creatinine 0.95 0.66 - 03/03/2021 [facility] LABORATORY 1.25 mg/dL 10:36 AM CDT Calcium 8.8 8.5 - 10.1 03/03/2021 [facility] LABORATORY mg/dL 10:36 AM CDT Glucose 180 (H) 70 - 99 03/03/2021 LABORATORY mg/dL 10:36 AM CDT Alkaline 60 [...] Address City/State/ZIP Code [place] [address] Care Lab [address] Lab (1st floor, no room number) [...] CDT Deandre Alvarez MD LAB - ENEDINA POCT Performing Organization Address City/State/ZIP Code [place] [address] Care Lab [address] Lab (1st floor, no room number) documented in this encounter Visit Diagnoses Diagnosis 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) - Primary Acute right-sided weakness Hemiplegia, unspecified, affecting unspe cified side JUSTIN (generalized anxiety disorder) Generalized anxiety disorder Essential hypertension Unspecified essential hypertension Acute right-sided weakness Hemiplegia, unspecified, affecting unspe cified side documented in this encounter Admitting Diagnoses Diagnosis [...] TIMES DAILY WITH MEALS, First dose on 03/04/21 at 1330, If the patient receives intravenous, [...] 1914, Administer intramuscular if an intravenous ro three affiliated is not available and notify provider when [...] 1914, Administer intramuscular if an intravenous ro three affiliated is not available and notify provider when [...] Kiran RN) 0801 (Given - Provider: Elaine Bonner, MARIANN)1607 (Not Given - Provider: Sandra Quintana RN [...] Reason: Order parameters not met - Comment: iG=139) 2134 (Not Given - Provider: Amelia Kiran RN [...] at 2000 sertraline (ZOLOFT) tablet 50 mg 0806 (Given - Provider: Pam Lynn RN) 0856 (Given - Provider: Bhavesh Lynn RN) 08 (Given - Provider: Elaine Bonner RN) 50 mg, Oral, DAILY, First dose on [...] 08 (Given - Provider: John Lynn RN) 0856 (Given - Provider: Bhavesh [...] Sat03/03/21 at 2000 Continuous Medication Order 03/04/2021 03/05/2021 03/06/2021 sodium chloride 0.9% infusion (CANCELED) 0400 (New [...] (CANCELED) 0356 (Gi adina - Provider: Amelia Kiran RN) 5 mg, Oral, EVERY 6 HOURS PRN, moderate to severe pain, Starting on 03/03/21 at 1911 senna-docusate (SENOKOT-S/PERICOLACE) 8. 6-50 MG [...] Lynn RN) 0613 (Given - Provider: Amelia Kiran, RN)1558 (Given - Provider: Sandra Quintana RN) [...] stools.
documented in this encounter Care Teams Patrol Community Service Officer Relationship Specialty Start Date End Date Mario Keith MD PCP - General Internal Medicine 11/28/[address] [address] documented as of this encounter
--- OUTSIDE RECORDS SUMMARY | 2022-02-27 11:01 | XMS_ITS | Encounter Summary ---
:1955 Author Organization [place] Address [address] [place] [address]. [place] [address] Care Team Providers Name Role Phone Mario Keith MD Primary Care Provider [phone] Encounter Details Date Type Department Care Team Description 11/28/2017 [facility] - [facility] [address] [place] [address] [place] [address] [facility] N [phone] [facility] [address] [place], [place] [address] Social History Tobacco Use Types [...] on filedocumented in this encounter Care Teams Addressograph Operator Relationship Specialty Start Date End Date Mario Keith MD PCP - General Internal Medicine 11/28/17 [facility] [address] [place] [address] documented as of this encounter
--- OUTSIDE RECORDS SUMMARY | 2022-02-27 11:01 | XMS_ITS | Clinical Summary ---
:1955 Author Organization [facility] [place] [address] Care Team Providers Name Role Phone Mario Keith MD Primary Care Provider Allergies Active Allergy Reactions Severity Noted Date Comments Bupropion Hydrobromide Hives 06/20/2012 Medications Medication Sig Dispensed Refills Start Date End Date Status MULTIVITAMIN ORAL None Entered 0 Active quetiapine (SEROQUEL) Take 1 tablet by 30 tablet 0 12/29/2009 Active 200 mg tablet mouth at bedtime. DULoxetine (CYMBALTA) Take 3 capsules by 90 capsule 0 04/27/20 10 Active 30 mg capsule mouth once daily. needs appt for further refills omeprazole (PRILOSEC) Take 40 mg by 0 Active 40 mg capsule mouth once daily. gabapentin Take 300 mg by 0 Acti ve (NEURONTIN) 300 mg mouth 3 times capsule daily. lisinopril (PRINIVIL; Take 5 mg by mouth 0 Active ZESTRIL) 5 mg tablet once daily. LORazepam (ATIVAN) 1 Take 1 mg by mouth 0 Active mg tablet 3 times daily. aspirin chewable Take 81 mg by 0 Active (CHILD ASPIRIN) 81 mg mouth once daily chewable tablet with a meal. traZODone (DESYREL) Take 100 mg by 0 Active 100 mg tablet mouth at bedtime. simvastatin (ZOCOR) Take 1 tablet by 30 tablet 3 01/05/2013 Active 10 mg tablet mouth once daily with evening meal. traMADoL (ULTRAM) 50 Take 1 tablet by 0 09/28/2019 Active mg tablet mouth once daily. CPAPIndications: STEVEN CPAP machine for 1 Each 01/11/2022 Active (obstructive sleep home use at apnea), Obesity, pressure: 10.4 cmw unspecified , Heated classification, humidifier x 1 q 5 unspecified obesity yr, Humidifier type, unspecified chamber x 1 q 6 whether serious mo, nasal face comorbidity present mask x1 q 3mos, with cushion x 2 q mo, standard tubing x 1 q 3 mo, Headgear x 1 q 6 mo, Filters: Disposable x 2 q mo non-disposable filters x1 q 6mo, Length of Need: 99 months, Frequency of use: Daily Active Problems Problem Noted Date STEVEN, 10/19/1999, RDI 62 08/09/2016 DM (diabetes mellitus) 01/04/2013 Gastric bypass status for obesity 01/04/2013 HTN (hypertension) 01/04/2013 Major depressive disorder, recurrent episode, unspecif ied 10/18/2009 JUSTIN (generalized anxiety disorder) 10/18/2009 Alcohol abuse, continuous 08/31/2009 Chest pain, non-cardiac 04/03/2006 Other abnormal glucose 04/03/2006 Overview: elevated on admission at 295. No prev. t reatment. Obesity, unspecified 04/03/2006 Tobacco use disorder 04/03/2006 Overview: 12 year history of 5 PPD. Quit in December of 2005. Esophageal reflux 04/03/2006 Encounters Date Type Specialty Care Team Description 01/11/2022 Phone Office Visit Chrsitophe Vargas PA 01/11/2022 Telephone Vivienne Crisostomo, GRADUATE ENGINEER CPAP M PABLO from Last 3 Months Social History Tobacco Use Types Packs/Day Years Used Date Former Smoker Quit: 12/02/19 12 Smokeless Tobacco: Never Used Tobacco Cessation: Counseling Given: Yes Alcohol Use Standard Drinks/Week Comments Yes 0 (1 standard drink = 0.6 oz pure alcoho l) 7-8 beers a day Alcohol Habits Answer Date Recorded How often do you have a drink containing alcohol? Not asked How many drinks containing alcohol do you have on a Not aske d typical day when you are drinking? How often do you have six or more drinks on one Not asked occasion? Comment: 7-8 beers a day 01/04/2013 Sex Assigned at Date Recorded Not on file Obstetrics History Last Filed Vital Signs Vital Sign Reading Time Taken Comments Blood Pressure 109/72 09/21/2021 10:28 AM CDT Pulse 75 09/21/2021 10:28 AM CDT Temperature 36.1 ??C (97 ??F) 09/21/2021 10:28 AM CDT Respiratory Rate 20 09/21/2021 10:28 AM CDT Oxygen Saturation 98% 09/21/2021 10:28 AM CDT Inhaled Oxygen Concentration - - Weight 130.2 kg (287 lb) 08/09/2016 8:41 AM CDT Height 180.3 cm (5' 11) 07/23/2014 1:14 PM BEAUTY CULTURIST Body Mass Index 40.03 07/23/2014 1:14 PM BEAUTY CULTURIST Plan of Treatment Health Maintenance Due Date Last Done Comments Pneumococcal series for age 65+ (1 - 1960 PCV) Tdap 1965 Depression screening for age 12+ 1966 BMI (ht and wt on same day) for age 0711/21/1972 18+ Hepatitis C screening for age 18-79 1972 Tetanus booster 1974 Colonoscopy through age 75 11/22/1999 Zoster (shingles) series for age 50+ 2004 (1 of 2) AAA screening age 55-77 2009 Lipids for age 45-75 01/05/2018 01/05/2013, 04/03/2006 Medicare Wellness for age 65+ 11/22/2019 Influenza for age 65+ 01/18/2022 COVID-19 vaccine series Completed 08/18/2021, 03/10/2021, 07/24/2020 Results Not on filefrom Last 3 Months Insurance Payer Benefit Plan / Subscriber ID Effective Dates Phone Addre ss Type Group MEDICARE PART A MEDICARE PART A [id number] 2013-Prese ATTN: CLAIMS - HB USE ONLY HB ONLY nt [address] [place] [address] MEDICARE PART B MEDICARE PART B [id number] 2012-Prese ATTN: CLAIMS - HB USE ONLY HB ONLY nt [address] [place] [address] MEDICARE - PB MEDICARE PB [id number] 2018-Presen ATTN : CLAIMS USE ONLY ONLY t [address] [place] [address] BLUE CROSS BLUE CROSS OF [id number] 2018-Presen [address] [place] [address] BLUE CROSS BLUE CROSS [id number] 2016-Presen [address] [address] [address] [place], [place] [id number] Advance Directives Latest Code Status on File Code Status Date Activated Date Inactivated Comments Full Code 01/04/2013 5:51 PM 01/05/2013 5:36 PM Care Teams Data Management Engineer Relationship Specialty Start Date End Date Mario Keith MD PCP - General Family Practice 07/06/101999 [place], [place] [id number]
--- OUTSIDE RECORDS SUMMARY | 2022-02-27 11:02 | XMS_ITS | Encounter Summary ---
:1955 Author Organization [facility] Address [address] [place] [address] Care Team Providers Name Role Phone Unavailable Primary Care Provider Unavailable Encounter Details Date Type Department Care Team Description 08/25/2007 Historic Notes INTERFACED REPORT Interface, Transcript onMD Social History Tobacco Use Types Packs/Day Years Used Date Smoking Tobacco: Never Assessed Sex Assigned at Date Recorded Not on file documented as of this encounter Progress Notes Interface, It Applications Analyst - 08/07/2010 12:05 AM CDT BARIATRIC FOLLOW [...]
--- OUTSIDE RECORDS SUMMARY | 2022-02-27 11:02 | XMS_ITS | Encounter Summary ---
:1955 Author Organization [place] Address [address] [place] [address] Care Team Providers Name Role Phone Unavailable Primary Care Provider Unavailable Encounter Details Date Type Department Care Team Description 03/03/2009 Historic Manager Data Warehousing [facility] Stewart DO [facility] [address] [facility] [place] [address] (Wo rk) Social History Tobacco Use Types Packs/Day Years Used Date Smoking Tobacco: Never Assessed Sex Assigned at Date Recorded Not on file documented as of this encounter Progress Notes Interface, Manager Data Warehousing - 04/24/2011 7:16 AM STOVE TENDER FINAL CHIEF COMPLAINT: My family was concerned about me. HISTORY OF PRESENT ILLNESS: Jett Georges is a 53-year-old white male who presented to [facility] [place], secondary to increased depression. The patient also states that he was hoping to come into the hospital so he could get on disability. Patient does report a 3-year history of depression and anxiety. He states that it all started when he stopped smoking. He states that he recently talked to a manager plan and the manager plan has convinced him that it was all [...] patient states that he grew up in [place], [place]. He did graduate from high school. [...] coordination are all within normal limits. DIAGNOSES: [place] I: Major depressive disorder, recurrent, severe without psychotic features. Benzodiazepine dependency and possible alcohol abuse. [place] II: Deferred. [place] III: As per Internal Medicine. [place] IV: Poor insight into his mental health issues. [place] V: GAF: 40. PLAN AND RECOMMENDATIONS: At this time will adjust his antidepressant medications. Will take him off his Ativan with a phenobarbital taper. Will use Seroquel to help control his anxiety. Will get the patient connected with outpatient psychiatry and therapy. Electronically signed on 03/30/2009 22:52 by BLAS CATES DO [place]: niecy Name: JETT GEORGES Account: [id number] : 1955 Admitted: [id number] Document: [id number] E TENDER documented in this encounter Plan of Treatment Not on filedocumented as of this encounter Visit Diagnoses Not on filedocumented in this encounter
--- OUTSIDE RECORDS SUMMARY | 2022-02-27 11:02 | XMS_ITS | Encounter Summary ---
:1955 Author Organization [place] Address [address] [place] [address] Care Team Providers Name Role Phone Unavailable Primary Care Provider Unavailable Encounter Details Date Type Department Care Team Description 03/05/2009 Historic Results [facility] [address] [facility] [place] [address] (Wo rk) Social History Tobacco Use Types [...] 1:15 CDT AM CDT Shukri Becker DO TOM - BELELO POCT Performing Organization Address City/State/ZIP Code Phon [...]
--- OUTSIDE RECORDS SUMMARY | 2022-02-27 11:02 | XMS_ITS | Encounter Summary ---
:1955 Author Organization [place] Address [address] [place] [address] Care Team Providers Name Role Phone Unavailable Primary Care Provider Unavailable Encounter Details Date Type Department Care Team Description 03/05/2009 Historic Notes INTERFACED REPORT David Minaya MD [facility] [address] [facility] [place] [address] (Wo rk) Social History Tobacco [...]
--- OUTSIDE RECORDS SUMMARY | 2022-02-27 11:02 | XMS_ITS | Encounter Summary ---
:1955 Author Organization [place] Address [address] [place] [address] Care Team Providers Name Role Phone Unavailable Primary Care Provider Unavailable Encounter Details Date Type Department Care Team Description 03/04/2009 [facility] [address] [facility] [place] [address] (Wo rk) Social History Tobacco Use Types [...] LAB - BLOOD ORDERABLES Performing Organization Address City/[facility]/ZIP Code Phon e Number MISYS Vitamin B12 (03/04/2009 8:46 AM CDT) P athologist Signature Vitamin B12 331 >210 pg/mL [...]
--- OUTSIDE RECORDS SUMMARY | 2022-02-27 11:02 | XMS_ITS | Encounter Summary ---
:1955 Author Organization [place] Address [address] [place] [address] Care Team Providers Name Role Phone Unavailable Primary Care Provider Unavailable Encounter Details Date Type Department Care Team Description 03/04/2009 Historic Notes INTERFACED REPORT David Minaya MD [facility] [address] [facility] [place] [address] (Wo rk) Social History Tobacco Use Types Packs/Day Years Used Date Smoking Tobacco: Never Assessed Sex Assigned at Date Recorded Not on file documented as of this encounter Progress Notes Graciela Minaya MD - 08/05/2010 5:44 PM CDT ATTENDING PHYSICIAN - Attending Note: I examined the patient and discussed the case with the physician care team assistant student who is severing as a [...]
--- OUTSIDE RECORDS SUMMARY | 2022-02-27 11:02 | XMS_ITS | Encounter Summary ---
:1955 Author Organization [place] Address [address] [place] [address] Care Team Providers Name Role Phone Unavailable Primary Care Provider Unavailable Encounter Details Date Type Department Care Team Description 03/07/2009 Historic Results [facility] [address] [place] [address], [address] [place] [address] (Wo rk) Social History Tobacco Use Types [...]
--- OUTSIDE RECORDS SUMMARY | 2022-02-27 11:02 | XMS_ITS | Encounter Summary ---
:1955 Author Organization [place] Address [facility] [place] [address] Care Team Providers Name Role Phone Unavailable Primary Care Provider Unavailable Encounter Details Date Type Department Care Team Description 04/07/2007 Consultation [facility] Madhu Toney MD [address] [facility] [place] [id number] (Wo rk) Social History Tobacco Use Types Packs/Day Years Used Date Smoking Tobacco: Never Assessed Sex Assigned at Date Recorded Not on file documented as of this encounter Progress Notes Madhu Toney - 05/20/2007 9:06 PM FIELD IDENTIFICATION SPECIALIST FINAL CHIEF COMPLAINT: Sleep apnea, reflux, hyperlipidemia, [...] include diet pills over 30 years ago, [id number] diets, exercise. His attempts for weight loss, [...] one who had it done down in [place]. The patient is setting up his appointment [...] kathi Name: JETT GEORGES MRN: [id number] Account: [id number] : 1955 Consult Date: 04/07/2007 Document: [id number] D IDENTIFICATION SPECIALIST documented in this encounter Plan of Treatment Not on filedocumented as of this encounter Visit Diagnoses Not on filedocumented in this encounter
--- OUTSIDE RECORDS SUMMARY | 2022-02-27 11:02 | XMS_ITS | Encounter Summary ---
:1955 Author Organization [place] Address [address] [place] [address] Care Team Providers Name Role Phone Unavailable Primary Care Provider Unavailable Encounter Details Date Type Department Care Team Description 03/04/2009 Historic Notes INTERFACED REPORT Interface, Transcript on, Social History Tobacco Use Types Packs/Day Years Used Date Smoking Tobacco: Never Assessed Sex Assigned at Date Recorded Not on file documented as of this encounter Progress Notes Interface, Real Estate Underwriter - 08/05/2010 5:43 PM CDT General Information - Has NOT attended OT 14:00 as of: Plan - Plan: Encourage attendance and participation. ALISHA Vieyra (OTR)[Signed 15:20] Authored: General Information, Plan documented in this encounter Plan of Treatment Not on filedocumented as of this encounter Visit Diagnoses Not on filedocumented in this encounter
--- OUTSIDE RECORDS SUMMARY | 2022-02-27 11:02 | XMS_ITS | Encounter Summary ---
:1955 Author Organization [place] Address [address] [place] [address] Care Team Providers Name Role Phone Unavailable Primary Care Provider Unavailable Encounter Details Date Type Department Care Team Description 10/20/2007 Historic Notes INTERFACED REPORT Interface, Transcript onMD Social History Tobacco Use Types Packs/Day Years Used Date Smoking Tobacco: Never Assessed Sex Assigned at Date Recorded Not on file documented as of this encounter Progress Notes Interface, Secretary Specialist - 08/06/2010 9:30 PM CDT General Information - How to be addressed Leandro - personal lines account manager to Gabriella Foster (sister) notify: - Phone 1: [phone] - personal lines account manager #2: Leandro Curiel (father) - Phone 1: [phone] - personal lines account manager #3: Nusrat Vera (friend) - Phone 1: [phone] - Patient's Spoken Language, Angolan communication style Advance Directive - Do you [...] Considerations - Developmental None Learning Considerations - Gnosticism Learning None Considerations Activity-Exercise/Self Care - Ambulation [...] life Values/Beliefs/Spiritual Care - F: Catherine: Does Hoahaoism culture/spirituality/ congregational play an important part in your life? - Would you like Does not wish to have anyone contacted pastoral care/clergy/international student advisor notified? Mutuality/Individual Preferences - What information [...] Tolerance, Values/Beliefs/Spiritual Care, Mut uality/Individual Preferences Interface, Secretary Specialist - 08/06/2010 9:27 PM CDT Bariatric Consult [...]
--- OUTSIDE RECORDS SUMMARY | 2022-02-27 11:02 | XMS_ITS | Encounter Summary ---
:1955 Author Organization [place] Address [address] [place] [address] Care Team Providers Name Role Phone Unavailable Primary Care Provider Unavailable Encounter Details Date Type Department Care Team Description 03/06/2009 Historic Results [facility] [address] [facility] [place] [address] (Wo rk) Social History Tobacco Use Types [...] 9:10 CDT PM CDT Shukri Becker DO TOM - BEAKER POCT Performing Organization Address City/State/ZIP [...]
--- OUTSIDE RECORDS SUMMARY | 2022-02-27 11:02 | XMS_ITS | Encounter Summary ---
:1955 Author Organization [place] Address [address] [place] [address] Care Team Providers Name Role Phone Unavailable Primary Care Provider Unavailable Encounter Details Date Type Department Care Team Description 03/03/2009 Historic Notes INTERFACED REPORT Interface, Transcript on, Social History Tobacco Use Types Packs/Day Years Used Date Smoking Tobacco: Never Assessed Sex Assigned at Date Recorded Not on file documented as of this encounter Progress Notes Interface, Glue Spreader - 08/05/2010 5:47 PM CDT General Information [...] - Second Staff (name) Bud Ruano - flooring salesperson #1: Leandro Curiel - Relationship to Father patient #1: - Phone 1: [phone] - Patient's spoken language; Moroccan or Bilingual communication style Advance Directive - [...] few days Hospitalization - Primary Care Mario Kelly--[facility] Physician - Do you have none restrictions [...] - Do you have yes, 7 yo --non-residential parent but close to responsibility for his [...] 14:34] Authored: Review of Systems AUBREY BURK (RN)[Signed 21:09] Authored: General Information, Advance Directive, Allergies, [...]
--- OUTSIDE RECORDS SUMMARY | 2022-02-27 11:02 | XMS_ITS | Encounter Summary ---
:1955 Author Organization [place] Address [address] [place] [address] Care Team Providers Name Role Phone Unavailable Primary Care Provider Unavailable Encounter Details Date Type Department Care Team Description 10/21/2007 Historic Results INTERFACED REPORT Alireza White MD [address] [facility] [address] [place] [address] (Wo rk) Social History Tobacco Use Types [...] SANTOS - BELELO POCT Performing Organization Address [facility] Phon e Number MISYS (ABNORMAL) Glucose by meter (10/21/2007 6:04 PM CDT) P athologist Signature Glucose 111 (H) 60 - 99 MISYS mg/dL Specimen Anatomical Collection Method Collection Time Receive d Time (Source) Location / / Volume Laterality 10/21/2007 6:04 PM 8 CDT 10:46 PM CDT Alireza SANTOS - BEAKER POCT Performing Organization Address [facility] Phon e Number MISYS (ABNORMAL) Glucose by meter (10/21/2007 11:35 AM CDT) P athologist Signature Glucose 134 (H) 60 - 99 MISYS mg/dL Specimen Anatomical Collection Method Collection Time Receive d Time (Source) Location / / Volume Laterality 10/21/2007 11:35 10/21/2007 AM CDT 10:46 PM CDT Alireza SANTOS - BELELO POCT Performing Organization Address [facility] Phon e Number MISYS (ABNORMAL) Hemoglobin (10/21/2007 10:05 AM CDT) P athologist Signature Hemoglobin 12.1 (L) 13.3 - 17.7 MISYS g/dL Specimen (Source) Anatomical Collection Method Collection Time Re ceived Time Location / / Volume Laterality 10/21/2007 10:05 10/21/2007 AM CDT Kalpana Ram PA-C LAB - BLOOD ORDERABLES Performing Organization Address [facility] Phon e Number MISYS (ABNORMAL) Electrolyte panel [...]
--- OUTSIDE RECORDS SUMMARY | 2022-02-27 11:02 | XMS_ITS | Encounter Summary ---
:1955 Author Organization [place] Address [address] [place] [address] Care Team Providers Name Role Phone Unavailable Primary Care Provider Unavailable Encounter Details Date Type Department Care Team Description 03/03/2009 Discharge Summary [facility] Blas Cates, (Java Lead Developer) [facility] [address] [facility] [place] [address] (Wo rk) Social History Tobacco Use Types Packs/Day Years Used Date Smoking Tobacco: Never Assessed Sex Assigned at Date Recorded Not on file documented as of this encounter Progress Notes Interface, Java Lead Developer - 03/30/2009 10:58 PM MECHANIC SENIOR FINAL DISCHARGE DIAGNOSES: AXIS I: 1. Major [...] DO MT: SONYA Name: JETT GEORGES Account: [id number] : 1955 Admit Date: Discharge Date: 03/08/2009 Document: [id number] ANIC SENIOR documented in this encounter Plan of Treatment Not on filedocumented as of this encounter Visit Diagnoses Not on filedocumented in this encounter
--- OUTSIDE RECORDS SUMMARY | 2022-02-27 11:02 | XMS_ITS | Encounter Summary ---
:1955 Author Organization [place] Address [address] [facility] [place] [address] Care Team Providers Name Role Phone Unavailable Primary Care Provider Unavailable Encounter Details Date Type Department Care Team Description 10/21/2007 Results Only [facility] Kalpana Ram, [facility] AUDREY Results SURGICAL CONSULT [facility] CAR[facility] [address] [facility] [address] [place] [address] (Wo rk) Social History Tobacco Use Types Packs/Day Years Used Date Smoking Tobacco: Never Assessed Sex Assigned at Date Recorded Not on file documented as of this encounter Plan of Treatment Not on filedocumented as of this encounter Procedures Procedure Name Priority Date/Time Associated Diagnosis Comme [facility] UPPER GI W/O KUB Routine 10/21/2007 7:35 AM Re sults for this CDT procedure are i n the results section. documented in this encounter Results XRAY UPPER GI TRACT (10/21/2007 7:35 AM CDT) Anatomical Region Laterality Modality Other Specimen (Source) Anatomical Collection Method Collection Time Re ceived Time Location / / Volume Laterality 10/21/2007 7:35 AM CDT Impressions 10/21/2007 7:40 AM CDT UGI W/ GASTROGRAFIN Oct 21, 2007 7:35:00 [...] noted. Kalpana Ram PA-C SPECIAL IMAGING STUDIES documented in this encounter Visit Diagnoses Not on filedocumented in this encounter
--- OUTSIDE RECORDS SUMMARY | 2022-02-27 11:02 | XMS_ITS | Encounter Summary ---
:1955 Author Organization [place] Address [address] [place] [address] Care Team Providers Name Role Phone Unavailable Primary Care Provider Unavailable Encounter Details Date Type Department Care Team Description 10/20/2007 Operative Report [facility] Em Merida MD (Home Economist) [address] Results [address] [place] [address] Social History Tobacco Use Types Packs/Day Years Used Date Smoking Tobacco: Never Assessed Sex Assigned at Date Recorded Not on file documented as of this encounter Progress Notes Em Merida - 10/27/2007 10:29 PM CDT FINAL 1st Shopper Marketing Manager: Kalpana Becker PA-C PREOPERATIVE DIAGNOSIS: 1. Morbid [...] kera Name: JETT GEORGES MRN: [id number] Account: [id number] : 1955 Procedure Date: 10/20/2007 Document: [id number] documented in this encounter Plan of Treatment Not on filedocumented as of this encounter Visit Diagnoses Not on filedocumented in this encounter
--- OUTSIDE RECORDS SUMMARY | 2022-02-27 11:02 | XMS_ITS | Encounter Summary ---
:1955 Author Organization [place] Address [address] [place] [address] Care Team Providers Name Role Phone Unavailable Primary Care Provider Unavailable Encounter Details Date Type Department Care Team Description 10/22/2007 Historic Notes INTERFACED REPORT Interface, Transcript on, Social History Tobacco Use Types Packs/Day Years Used Date Smoking Tobacco: Never Assessed Sex Assigned at Date Recorded Not on file documented as of this encounter Progress Notes Interface, Retail Customer Service Specialist - 08/06/2010 9:23 PM CDT Discharge Planning - Discharge From: [facility] - Patient Care Unit: Station 33 - [...] Dr. White call: - Phone number of [facility] [phone] patient should call: Other Discharge Education, Materials, [...] Materials, and Instructions, Follow Up Care Interface, Retail Customer Service Specialist - 08/06/2010 9:23 PM CDT BARIATRIC SURGERY [...]
--- OUTSIDE RECORDS SUMMARY | 2022-02-27 11:02 | XMS_ITS | Encounter Summary ---
:1955 Author Organization [place] Address [address] [place] [address] Care Team Providers Name Role Phone Unavailable Primary Care Provider Unavailable Encounter Details Date Type Department Care Team Description 10/20/2007 Historic Results INTERFACED REPORT Alireza White MD [address] [facility] [address] [place] [address] (Wo rk) Social History Tobacco Use Types [...] LAB - BLOOD ORDERABLES Performing Organization Address [facility] Phon e Number MISYS (ABNORMAL) Glucose by meter (10/20/2007 1:37 PM CDT) P athologist Signature Glucose 136 (H) 60 - 99 MISYS mg/dL Specimen Anatomical Collection Method Collection Time Receive d Time (Source) Location / / Volume Laterality 10/20/2007 1:37 PM 8 6:15 CDT AM CDT Alireza White MD LAB - BEAKER POCT Performing Organization Address [facility] Phon e Number MISYS (ABNORMAL) Glucose (10/20/2007 6:36 AM CDT) athologist Signature Glucose 125 (H) 60 - 99 MISYS mg/dL Specimen Anatomical Collection Method Collection Time Receive d Time (Source) Location / / Volume Laterality 10/20/2007 6:36 AM 8 6:39 CDT AM CDT Alireza White MD LAB - BLOOD ORDERABLES Performing Organization Address [facility] Phon e Number MISYS Hemoglobin (10/20/2007 6:36 AM CDT) athologist Signature Hemoglobin 14.0 13.3 - 17.7 MISYS g/dL Specimen Anatomical Collection Method Collection Time Receive d Time (Source) Location / / Volume Laterality 10/20/2007 6:36 AM 8 6:39 CDT AM CDT Authorizing Provider Result Yonas White MD LAB - BLOOD ORDERABLES Performing Organization Address [facility] Phon e Number MISYS documented in this encounter Visit Diagnoses Not on filedocumented in this encounter
--- OUTSIDE RECORDS SUMMARY | 2022-02-27 11:02 | XMS_ITS | Encounter Summary ---
:1955 Author Organization [place] Address [address] [place] [address] Care Team Providers Name Role Phone Unavailable Primary Care Provider Unavailable Encounter Details Date Type Department Care Team Description 11/12/2007 Historic Notes INTERFACED REPORT Interface, Transcript onMD Social History Tobacco Use Types Packs/Day Years Used Date Smoking Tobacco: Never Assessed Sex Assigned at Date Recorded Not on file documented as of this encounter Progress Notes Interface, Lunchroom Attendant - 08/06/2010 8:24 PM CDT BARIATRIC PROGRESS [...]
--- OUTSIDE RECORDS SUMMARY | 2022-02-27 11:02 | XMS_ITS | Encounter Summary ---
:1955 Author Organization [place] Address [address] [place] [address] Care Team Providers Name Role Phone Unavailable Primary Care Provider Unavailable Encounter Details Date Type Department Care Team Description 03/04/2009 Consultation [facility] [place] [facility] [address] [facility] [address] [address] (Wo rk) Social History Tobacco [...] extremities intact grossly in all 4 extremities, event management consultant is 5/5 bilaterally. LABORATORY DATA: His comprehensive metabolic battery was normal with the exception of glucose whichis elevated to 210. His TSH was 2.8. His GGT was 48. Records from [facility] indicated his CBC was normal, and [...] JUAREZ STUDENT MT: dougie Name: JETT GEORGES Account: [id number] : 1955 Consult Date: 03/04/2009 Document: [id number] cc: Shukri Becker DO documented in this encounter Plan of Treatment Not on filedocumented as of this encounter Visit Diagnoses Not on filedocumented in this encounter
[2022-02-27 22:35] LABS: C Reactive Protein* 2.5 mg/dL (0.5-1.0)
== END 2022-02-27 10:57 | disposition home or self-care (01) ==
PROVIDERS: PCP Internal Medicine; Visit Provider Physician Assistant Surgical
DX: T84.038A Mechanical loosening of other internal prosthetic joint, initial encounter (principal); Z96.659 Presence of unspecified artificial knee joint
CPT/HCPCS: 86140

== ENCOUNTER 2022-03-06 08:56 | Outpatient (CLI) | payer MEDICARE, BC, SELFPAY ==
--- NOTE | 2022-03-06 09:00 | CRLHL7_ITS ---
For Patients: As a result of the Century Cures Act, medical imaging exams and procedure reports are released immediately into your electronic medical record. You may view this report before your referring provider. If you have questions, please contact your health care provider. HISTORY: 66-year-old male with male. Bilateral knee replacements. TECHNIQUE: 27.3 millicuries of [id number] was injected intravenously. Three phase images of the knees were obtained. FINDINGS: The blood flow and blood pool images demonstrate hyperemia surrounding the right knee. The delayed images demonstrate bilateral knee replacements. The left knee replacement appears unremarkable. There is abnormally increased uptake adjacent to the right knee prosthetic components. These findings are consistent with loosening, or infection. IMPRESSION: 1. 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 2. There is no evidence of loosening or infection of the left knee prosthesis. Dictated by Jose Angel Holbrook MD @ 03/06/2022 2:46:49 PM (Electronically Signed)
--- OUTSIDE RECORDS SUMMARY | 2022-03-06 09:13 | XMS_ITS | Clinical Summary ---
:1955 Author Organization [facility] [place] [address] Care Team Providers Name Role Phone Mario [...] Care Team Description 01/11/2022 Phone Office Visit Christophe Vargas PA 01/11/2022 Telephone Vivienne Crisostomo, ROLL ICER MACHINE CPAP M PABLO from Last 3 Months [...] 180.3 cm (5' 11) 07/23/2014 1:14 PM IRRADIATED FUEL HANDLER Body Mass Index 40.03 07/23/2014 1:14 PM IRRADIATED FUEL HANDLER Plan of Treatment Upcoming Encounters Date Type Specialty Care Team Description 03/06/2022 Orders Only Veronica Smith Health Maintenance Due Date Last Done Comments [...] 04/03/2006 Medicare Wellness for age 65+ 11/22/2019 COVID-19 vaccine series (4 - Booster 10/13/2021 08/18/2021, 03/10/2021, for Mellissa series) 07/24/2020 Influenza for age 65+ 01/18/2022 Results Not on filefrom Last 3 Months Insurance Payer Benefit Plan / Subscriber ID Effective Dates Phone Addre ss Type Group MEDICARE PART A MEDICARE PART A [id number] 2013-Prese ATTN: CLAIMS - HB USE ONLY HB ONLY nt [address] [place] [address] MEDICARE PART B MEDICARE PART B [id number] 2012-Prese ATTN: CLAIMS - HB USE ONLY HB ONLY nt [address] [facility] [place] [address] MEDICARE - PB MEDICARE PB [id number] 2018-Presen ATTN : CLAIMS USE ONLY ONLY t [address] [facility] [place] [address] BLUE CROSS BLUE CROSS OF [id number] 2018-Presen [address] [place] [address] BLUE CROSS BLUE CROSS [id number] 2016-Presen [address] [address] [address] [place], [place] [id number] Advance Directives Latest Code Status on File Code Status Date Activated Date Inactivated Comments Full Code 01/04/2013 5:51 PM 01/05/2013 5:36 PM Care Teams Desk Attendant Relationship Specialty Start Date End Date Mario Keith MD PCP - General Family Practice 07/06/101999 [place], [place] [id number]
--- OUTSIDE RECORDS SUMMARY | 2022-03-06 09:13 | XMS_ITS | Encounter Summary ---
:1955 Author Organization [place] Address [facility] [place] [address] Care Team Providers Name Role Phone Mario Keith MD Primary Care Provider [phone] Encounter Details Date Type Department Care Team Description 11/28/2017 - Hospital Encounter [facility] Breien, Prim keya osteoarthritis 11/29/2017 [facility], [address] [facility] ORTHOP[facility]ED[facility] [place], [place] [address] [facility] [id number] [address] [address] [place], [place] [id number] Social History Tobacco Use Types Packs/Day Years [...] at discharge: Leandro Curiel Home Medication Instructions [id number] Printed on:11/29/17 1430 Medication Information acetaminophen (TYLENOL) [...] with oral pain medication Marion Romano PA-C [facility] Maria E Russo MD - 11/29/2017 [...] spent 35 min Maria E Russo MD. [facility] medicine service Selam Overton RT - 11/28/2017 3:13 PM CDT 11/28/17 1512 NPPV Other SpO2 96 % CPAP CPAP Pt. Owned Device Yes;Clean;Functional (does not bleed in oxygen or use humidity, home unit ) CPAP Pressure (cmH2O) (home settings ) CPAP O2 (L/min or FiO2) [address] [facility] - 11/28/2017 8:08 AM CDT Pharmacy Note - Admission Medication History Pertinent Provider Information: N/A Prior To Admission ([facility]ORD[facility]ER) med list completed and updated in EMR. [facility] Med List Medication Sig Note Last Dose [...] 50mg Information source(s): Patient, [facility] was asked about OTC/herbal products specifically. [facility] med list reflects this. Based on the pharmacist???s assessment, the [facility] med list information appears reliable Allergies were [...] - for htn, dm2 Leandro Curiel, 1955, [place] Prd Osteoarthritis of knee [M17.10] PCP: Mario Keith MD, Code status: Full Code Extended Emergency Contact Information Primary Emergency Contact: Alisson Curiel [facility] Relation: Ggylftos-Su-Dns Secondary Emergency Contact: Ervin Conner [facility] Relation: Child Assessment and Plan Essential hypertension [...] spent 70 min Maria E Russo MD. [facility] medicine service. documented in this encounter Miscellaneous Notes Op Note - Jennifer Arenas MD - 11/28/2017 11:48 AM CDT Operative Report PATIENT: Leandro Curiel DATE OF SURGERY: 11/28/2017 SURGEON Jennifer Arenas MD. [employer] Joe Strickland PA-C (Expert AUDREY assist was [...] knee with increasing disability. X-rays have shown [id number] degenerative change in the medial compartment. Has [...] Organization Address City/State/ZIP Code Phon e Number [facility] POCT RESULTS [address] [employer] [facility] [address] [address] Glucose by meter POCT (11/29/2017 7:03 AM CDT) athologist Signature GLUCOSE BY 116 mg/dL 11/29/2017 [facility] METER POCT 7:03 AM CDT [facility] POCT RESULTS Comment: Reference Ranges ? Age [...] Organization Address City/State/ZIP Code Phon e Number [facility] POCT RESULTS 1924 [facility] N [address] Hemoglobin A1c (11/29/2017 6:17 AM CDT) P athologist Signature Hemoglobin A1C 6.0 4.2 - 6.1 11/29/2017 HEALTH % 3:11 PM CDT [facility] Specimen Anatomical Collection Method / Collection Time Recei karin Time (Source) Location / Volume Laterality Blood specimen Venipuncture / 11/29/2017 6:17 11/30/19 18 9:36 (specimen) Unknown AM CDT AM CDT Maria E Russo MD LAB - BLOOD ORDERABLES Performing Organization Address City/State/ZIP Code Phon [place] [address] [address] [facility] (ABNORMAL) CBC with platelets (11/29/2017 6:17 AM CDT) Patholo gist Method Time Signature WBC 7.7 4.0 - 11.0 11/29/2017 [facility] thou/uL 6:27 AM CDT [facility] RBC Count 3.65 (L) 4.40 - 11/29/2017 HE[facility] 6.20 6:27 AM CDT [facility] mill/uL [facility] Hemoglobin 10.3 (L) 14.0 - 11/29/2017 HE[facility] 18.0 g/dL 6:27 AM T [facility] Hematocrit 30.9 (L) 40.0 - 11/29/2017 HEALTH 54.0 % 6:27 AM CDT [facility] MCV 85 80 - 100 11/29/2017 [facility]ALTH fL 6:27 AM CDT [facility] MCH 28.2 27.0 - 11/29/2017 HEALTH 34.0 pg 6:27 AM CDT [facility] MCHC 33.3 32.0 - 11/29/2017 HEALTH 36.0 g/dL 6:27 AM T [facility] RDW 13.3 11.0 - 11/29/2017 HEALTH 14.5 % 6:27 AM T [facility] Platelet Count 177 140 - 440 11/29/2017 [facility] thou/uL 6:27 AM T [facility] Mean Platelet 9.8 8.5 - 12.5 11/29/2017 HEALTH Volume fL 6:27 AM T [facility] Specimen Anatomical Collection Method / Collection Time Recei karin Time (Source) Location / Volume Laterality Blood specimen Venipuncture / 11/29/2017 6:17 11/30/19 18 6:22 (specimen) Unknown AM CDT AM CDT Maria E Russo MD LAB - BLOOD ORDERABLES Performing Organization Address City/State/ZIP Code Phon e Number [facility] [place] [address] Lab [address] Howe [address] [place] [address] LABORATORY (ABNORMAL) Basic metabolic panel (11/29/2017 6:17 AM CDT) Analysis Performed At Patho logist Time Signature Sodium 134 (L) 136 - 145 11/29/2017 HEALTH mmol/L 6:42 AM T [facility] Potassium 4.5 3.5 - 5.0 11/29/2017 [facility]ALTH mmol/L 6:42 AM T [facility] Chloride 99 98 - 107 11/29/2017 [facility]ALTH mmol/L 6:42 AM T [facility] Carbon Dioxide 27 22 - 31 11/29/2017 [facility]ALTH (CO2) mmol/L 6:42 AM T [facility] Anion Gap 8 5 - 18 11/29/2017 [facility] mmol/L 6:42 AM T [facility] Glucose 122 70 - 125 11/29/2017 [facility]ALTH mg/dL 6:42 AM T [facility] Calcium 8.8 8.5 - 10.5 11/29/2017 HEALTH mg/dL 6:42 AM T [facility] Urea Nitrogen 7 (L) 8 - 22 11/29/2017 [facility]ALTH mg/dL 6:42 AM T [facility] Creatinine 0.78 0.70 - 11/29/2017 HEALTH 1.30 mg/dL 6:42 AM T [facility] GFR Estimate If >60 >60 11/29/2017 HEALTH Black mL/min/1.7 6:42 AM T [address] LABORATORY GFR Estimate >60 >60 11/29/2017 HEALTH mL/min/1.7 6:[address] LABORATORY Specimen Anatomical Collection Method / Collection Time Recei karin Time (Source) Location / Volume Laterality Blood specimen Venipuncture / 11/29/2017 6:17 11/30/19 18 6:22 (specimen) Unknown AM CDT AM CDT Narrative [facility] - 11/29/2017 6:42 AM CDT Fasting Glucose reference range is 70-99 mg/dL per [place] [employer] (ADA) chay dela cruz. Maria E Russo MD LAB - BLOOD ORDERABLES Performing Organization Address City/State/ZIP Code Phon e Number [facility] [place] [address] [facility] [address] [facility] [address] [address] [facility] [address] [place] [place] [address], [facility] Glucose by meter POCT (11/28/2017 9:09 PM CDT) athologist Signature GLUCOSE BY 96 mg/dL 11/28/2017 [employer] METER POCT 9:09 PM CDT HOSPITAL POCT [...] Organization Address City/State/ZIP Code Phon e Number [facility] POCT RESULTS [address] [address] Glucose by meter POCT (11/28/2017 4:59 PM CDT) athologist Signature GLUCOSE BY 105 mg/dL 11/28/2017 [facility] METER POCT 4:59 PM CDT HOSPITAL POCT [...] Organization Address City/State/ZIP Code Phon e Number [facility] POCT RESULTS [address] [employer] [place], [place] [address] Glucose by meter POCT (11/28/2017 11:53 AM CDT) athologist Signature GLUCOSE BY 107 mg/dL 11/28/2017 [facility] METER POCT 11:53 AM CDT HOSPITAL POCT [...] Organization Address City/State/ZIP Code Phon e Number [facility] POCT RESULTS 1924 [facility] [address] [address] (ABNORMAL) CBC with platelets (11/28/2017 7:46 AM CDT) [facility] gist Method Time Signature WBC 6.6 4.0 - 11.0 11/28/2017 HEALTH thou/uL 7:52 AM CDT [facility] RBC Count 3.84 (L) 4.40 - 11/28/2017 HEALTH 6.20 7:52 AM CDT [employer] mill/uL [facility] Hemoglobin 10.9 (L) 14.0 - 11/28/2017 HEALTH 18.0 g/dL 7:52 AM CDT [facility] Hematocrit 32.4 (L) 40.0 - 11/28/2017 HEALTH 54.0 % 7:52 AM CDT [facility] MCV 84 80 - 100 11/28/2017 [facility] fL 7:52 AM CDT [facility] MCH 28.4 27.0 - 11/28/2017 HEALTH 34.0 pg 7:52 AM CDT [facility] MCHC 33.6 32.0 - 11/28/2017 HEALTH 36.0 g/dL 7:52 AM CDT [facility] RDW 13.5 11.0 - 11/28/2017 HEALTH 14.5 % 7:52 AM CDT [facility] Platelet Count 221 140 - 440 11/28/2017 HE[facility] thou/uL 7:52 AM CDT [facility] Mean Platelet 9.9 8.5 - 12.5 11/28/2017 [facility] Volume fL 7:52 AM CDT [facility] Specimen Anatomical Collection Method / Collection Time Recei karin Time (Source) Location / Volume Laterality Blood specimen Venipuncture / 11/28/2017 7:46 11/29/19 18 7:50 (specimen) Unknown AM CDT AM CDT Joe Strickland PA-C LAB - BLOOD ORDERABLES Performing Organization Address City/State/ZIP Code Phon e Number [facility] [place] [address] [address] [place], [place] [address] LABORATORY EXTRA GREEN TOP [...] athologist Signature GLUCOSE BY 106 mg/dL 11/28/2017 [facility] METER POCT 7:45 AM CDT HOSPITAL POCT [...] Organization Address City/State/ZIP Code Phon e Number [facility] POCT RESULTS 1924 [facility] [address] [address] LAB RESULT - HIM SCAN (11/28/2017) Narrative [...] leg documented in this encounter Care Teams Rayon Tester Relationship Specialty Start Date End Date Mario Keith MD PCP - General Internal Medicine 11/28/17 [facility] [address] [place] [address] documented as of this encounter
--- OUTSIDE RECORDS SUMMARY | 2022-03-06 09:13 | XMS_ITS | Encounter Summary ---
:1955 Author Organization [place] Address [address] [place] [address] Care Team Providers Name Role Phone Mario Keith MD Primary Care Provider [phone] Reason for Referral Consultation (Routine) Specialty Diagnoses / Procedures Referred By Contact Refer red To Contact Senthil Zhao MD [address] [place] [address] Referral ID Status Reason Start Date Expiration Date Visits Requ ested Visits [facility]ized [facility] ([facility]ine) Specialty Diagnoses / Procedures Referred By Contact Refer red To Contact Senthil Zhao MD [address] [place] [address] Referral ID Status Reason Start Date Expiration Date Visits Requ ested Visits Authorized [facility] Health Therapies & Aides (Routine) Specialty Diagnoses / Procedures Referred By Contact Refer red To Contact Senthil Zhao MD [address] [place] [address] Referral ID Status Reason Start Date Expiration Date Visits Requ ested Visits Authorized Reason for Visit Reason Comments One-sided Weakness Auth/Cert Specialty Diagnoses / Procedures Referred By Contact Refer red To Contact EMERGENCY MEDICINE Diagnoses Acute right-sided weakness Acute right-sided weakness Emergency Dept [address] [place] [address] Phone: Fax: Referral ID Status Reason Start Date Expiration Date Visits Requ ested Visits Authorized [id number] 1 1 Encounter Details Date Type Department Care Team Description 03/03/2021 - Emergency [facility] Deandre Alvarez Cla, MD [facility] OA [address] [place], [place] [id number] 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) (Primary Dx); 03/06/2021 [place] [address] Medical Sandeep Nunez DO [address] [place] [address] Acute right-sided weakness; Surgical Romaine Eng MD [address] [place] [address] JUSTIN (generalized anxiety disorder); [address] [facility] [place] [address] Social History Tobacco Use Types [...] Zhao MD - 03/06/2021 3:38 PM CDT [facility] Discharge Summary Hospitalist Date of Admission: 03/03/2021 [...] I, or a nurse practitioner or physician's auction assistant working with me, had a arfn-hn-nuzd encounter that meets the physician yihl-sg-dmsm encounter requirements with this patient on: 03/05/2021. [...] effort and are for medical reasons or catholic services or infrequently or of short duration when for other reasons) because: Patient is bedbound due to: fall risk, unsteady gait. Based on the above findings. I certify that this patient is confined to the home and needs intermittent correction care, physical therapy and/or speech therapy. The patient is under my care, and susana initiated the establishment of the plan of care. This patient will be followed by a physician who will periodically review the plan of care. Physician/Provider to provide follow up care: Mario Keith Attending [facility] physician (the Medicare certified [place] provider): Senthil Zhao MD Physician Signature: [...] next 24-48 hours, Please call them at [phone] documented in this encounter Medications at Time [...] EMG. Praful Gaytan MD (general neurology) pgr [phone] Senthil Zhao MD - 03/05/2021 2:35 PM CDT [facility] Hospitalist Progress Note Assessment & Plan Jett [...] EXAM: MR CERVICAL SPINE W/O CONTRAST LOCATION: [facility] DATE/TIME: 03/05/2021 10:42 AM INDICATION: [...] Date: 03/06/2021 Discharge Disposition: Home Discharge Services: geological specialist/PT/OT DIRECTOR OF CAMPUS RECREATION Discharge DME: N/A Discharge Transportation: family or friend will provide Private pay costs discussed: Not applicable Education Provided on the Discharge Plan: yes Persons Notified of Discharge Plans: PT Patient/Family in Agreement with the Plan: yes Handoff Referral Completed: Yes Additional Information: 03/05/21 1100 [facility] ([facility] [phone] fax [phone]) PT able to d.c home today Will fax final d.c order to home care. Family to transport Sandhya Wood YOKO Heath Bhavesh Lynn RN - [...] Adds Type of Visit Initial PT Evaluation Hand Iii Cutter Hand Iii Cutter Present no Language Slovak Living Environment People in home alone Current [...] Living Environment Comments Pt. lives alone in [facility] with bedroom upstairs and railing on [...] alone Current Living Arrangements other (see comments) ([address] [place] [address]) Home Accessibility stairs to enter home;stairs within home Number of Stairs, Main Entrance 2 Stair Railings, Main Entrance railing on right side (ascending) Number of Stairs, Within Home, Primary greater than 10 stairs Stair Railings, Within Home, Primary railing on right side (ascending) Transportation Anticipated car, drives self;family or friend will provide Living Environment Comments Pt. lives alone in [facility] with bedroom upstairs and railing on [...] of Daily Living BADL Assessment toileting Toileting Brooks Level (Toileting) supervision;set up;assist of 2;moderate assist [...] Needs Upon Discharge (OT) gait belt;raised toilet seat;lumber carrier operator;shower chair;tub bench;commode chair Risk & Benefits of [...] UE strength. Pt. lives alone in two [facility] with 2 stairs to enter and [...] Jett Georges II Provider: Romaine Eng MD, [facility] Date of Service: 03/04/2021 Reason for Stay [...] ?? #Hypertension-blood pressure stable for now, resume LEAD CARPENTER lisinopril 20 mg, ?? #Anxiety-depression --Per pharmacy records he is on Zoloft daily, Seroquel 200 mg nightly, lorazepam as needed --Given his grogginess I will resume his Zoloft and LEAD CARPENTER Seroquel for now but hold off on [...] repeat #Hypertension-blood pressure stable for now, resume LEAD CARPENTER lisinopril 20 mg, #Anxiety-depression --Per pharmacy records he is on Zoloft daily, Seroquel 200 mg nightly, lorazepam as needed --Given his grogginess I will resume his Zoloft and LEAD CARPENTER Seroquel for now but hold off on [...] ; Surgeon: Joseph Ramesh MD; Location: [facility]; Service: Orthopedics ??? GASTRIC BYPASS ??? [...] plaque. There is no stenosis or dissection. [place]: There is some mild calcific [...] -- TROPONIN <0.015 -- Carli Holder PA-C [facility] Medicine March 03, 2021 Securely message with the [employer] Console (learn more here) Text page via [employer] Paging/Directory Associated attestation - Sandeep Nunez DO [...] AM CDTAssociated Order(s): ORTHOPEDIC SURGERY IP CONSULT [facility] Orthopedic Consultation Jett Georges II Age: [age] [...] ; Surgeon: Joseph Ramesh MD; Location: [facility]; Service: Orthopedics ??? GASTRIC BYPASS ??? [...] plaque. There is no stenosis or dissection. [place]: There is some mild calcific [...] EXAM: MR CERVICAL SPINE W/O CONTRAST LOCATION: [facility] DATE/TIME: 03/05/2021 10:42 AM INDICATION: [...] Negative Ketones Urine Negative Negative mg/dL Specific [place] Urine 1.017 1.003 - 1.035 Blood Urine [...] Range Hold Specimen JIC Extra Green Top ([place] Heparin) Tube Status: None Result Value Ref [...] recent exposure or clinical presentation suggests COVID-19. [facility] are certified under the [...] Rate 83 BPM Atrial Rate [address] Interval 246 ms QRS Duration 122 ms QT 394 ms QTc 462 ms P [place] 69 degrees R AXIS -72 degrees T [place] 19 degrees Interpretation ECG Sinus rhythm with 1st degree A-V block with occasional Premature ventricular complexes Left anterior fascicular block Abnormal ECG No previous ECGs available Neurology IP Consult: General (non-stroke/non-ICU); Patient to be seen: Routine - within 24 hours; right arm weakness, palsy?; Blueprint Clerk may enter orders: Yes; Requesting provider? Hospitalist [...] ; Surgeon: Joseph Ramesh MD; Location: [facility]; Service: Orthopedics ??? GASTRIC BYPASS ??? [...] mg, 0.4 mg, Oral, Daily, Holder, Carli Voegl PA-C, 0.4 mg at 03/04/21 0806 ??? [...] symmetric movements. MOTOR: Tone is difficult to sap portal consultant, pain or difficulty relaxing complicate the assessment [...] without Contrast Praful Gaytan MD (general neurology) [facility] [phone] 1. Acute right-sided weakness Care Management / Social Work IP Consult Status: None () Narrative Sandhya Heath, CARBON ACCOUNTANT 03/04/2021 3:22 PM Care Management Initial Consult General Information Assessment completed with: Patient, Type of CM/SW Visit: Initial Assessment Primary Care Provider verified and updated as needed: Readmission within the last 30 days: no previous admission in last 30 days Reason for Consult: discharge planning Communication Assessment Patient's communication style: spoken language (Slovak or Bilingual) Hearing Difficulty or Deaf: no [...] Gatherings with Friends and Family: ??? Attends Congregational Services: ??? Active Member of Clubs or [...] find to accept referral SW went to untapt web site.. Called home care agencies but had to navigate through call center director services SW was able [facility] find [facility] [phone] . Requested PT/OT DIRECTOR OF CAMPUS RECREATION support for pt. They could provide start of care on Saturday Will fax face sheet and H&P over today and final d.c orders tomorrow Pt stated he will call his son for a ride home tomorrow. 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 Hospitalist (if different from attending physician... Status: None () Narrative Jairo Buckley PA-C 03/05/2021 4:01 PM [facility] Neurosurgery Consultation Date of Admission: 03/03/2021 Date [...] up with further consultation recommendations. Jairo Howe [facility] Neurosurgery [address] [place] [address] Pager [phone] Code Status Full Code Reason for Consult [...] ; Surgeon: Joseph Ramesh MD; Location: [facility]; Service: Orthopedics ??? GASTRIC BYPASS ??? [...] Status --------- ------ CBC with platelets and d...[[id number]] Abnormal Final result Please view results for these tests on the individual orders. Extra Tube ([place] Draw) Status: None Narrative The following orders were created for panel order Extra Tube ([place] Draw). Procedure Abnormality Status --------- ------ Extra Blue Top Tube[[id number]] Final result Extra Green Top ([place]...[[id number]] Final result Extra Purple Top Tube[[id number]] Final result Please view results for these [...] Veronica Murrell PA-C Associated attestation - Robin Degroto MD - 03/07/2021 12:43 PM CDT Physician Attestation I agree with the information in this note. Jairo Sy PA-C - 03/05/2021 2:30 PM CDTAssociated Order(s): SPINE SURGERY ADULT IP CONSULT [facility] Neurosurgery Consultation Date of Admission: 03/03/2021 Date [...] with further consultation recommendations. Jairo Buckley PA-C [facility] Neurosurgery [place] [address] Pager [phone] Code Status Full Code Reason for Consult [...] ; Surgeon: Joseph Ramesh MD; Location: [facility]; Service: Orthopedics ??? GASTRIC BYPASS ??? [...] personally see this patient today. Sandhya Heath, CARBON ACCOUNTANT - 03/04/2021 3:22 PM CDTAssociated Order(s): CARE MANAGEMENT / SOCIAL WORK IP CONSULT Care Management Initial Consult General Information Assessment completed with: Patient, Type of CM/SW Visit: Initial Assessment Primary Care Provider verified and updated as needed: Readmission within the last 30 days: no previous admission in last 30 days Reason for Consult: discharge planning Communication Assessment Patient's communication style: spoken language (Slovak or Bilingual) Hearing Difficulty or Deaf: no [...] Gatherings with Friends and Family: ??? Attends Congregational Services: ??? Active Member of Clubs or [...] find to accept referral SW went to untapt web site.. Called home care agencies but had to navigate through call center director services SW was able [facility] [phone] . Requested PT/OT DIRECTOR OF CAMPUS RECREATION support for pt. They could provide start [...] ; Surgeon: Joseph Ramesh MD; Location: [facility]; Service: Orthopedics ??? GASTRIC BYPASS ??? [...] symmetric movements. MOTOR: Tone is difficult to sap portal consultant, pain or difficulty relaxing complicate the assessment [...] order an MRI Cervical Spine without Contrast Prfaul Gaytan MD (general neurology) pgr [phone] 1. Acute right-sided weakness documented in this [...] X 1. Lift room needed:No. Bariatric: No Hand Iii Cutter Needed: No Isolation: No. Infection: Not Applicable. [...] recent exposure or clinical presentation suggests COVID-19. [facility] are certified under the [...] Status --------- ------ CBC with platelets and d...[[id number]] Abnormal Final result Please view results for these tests on the individual orders. EXTRA TUBE Narrative: The following orders were created for panel order Extra Tube ([place] Draw). Procedure Abnormality Status --------- ------ Extra Blue Top Tube[[id number]] Final result Extra Green Top ([place]...[[id number]] Final result Extra Purple Top Tube[[id number]] Final result Please view results for these [...] Unable to fully extend the right wrist. Doctor Of Radiology strength 5/5 and symmetric bilaterally. Left upper [...] to prior, dated 11/28/2017. Rate [address] interval 246 ms. QRS duration 122 ms. [...] Status --------- ------ CBC with platelets and d...[[id number]] Abnormal Final result Please view results for these tests on the individual orders. EXTRA TUBE Narrative: The following orders were created for panel order Extra Tube ([place] Draw). Procedure Abnormality Status --------- ------ Extra Blue Top Tube[[id number]] Final result Extra Green Top ([place]...[[id number]] Final result Extra Purple Top Tube[[id number]] Final result Please view results for these [...] the hospital under the care of Dr. Nuenz. Impression & Plan [facility] Diagnoses: The patient has stroke symptoms: [...] hypoglycemia (or hyperglycemia), head or spinal trauma, POWER PLANT ENGINEER infection, Toxin ingestion and shock state (e.g. [...] See goals on Care Plan in [facility] electronic health record for goal details. Goals [...] UE strength. Pt. lives alone in two [facility] with 2 stairs to enter and [...] from the original note were not included. [facility] OUTPATIENT PHYSICAL THERAPY EVALUATION PLAN OF TREATMENT FOR OUTPATIENT REHABILITATION (COMPLETE FOR INITIAL CLAIMS ONLY) Patient's Last Name, First Name, M.I. Date of : 1955 Jett Georges Provider's Name [facility] Onset Date: 03/03/21 Start of Care Date: 03/04/2021 Type: _X_PT ___OT ___SLP Medical Diagnosis: R-sided weakness PT Diagnosis: Impaired fn mobility Visits from SOC: 1 _ Plan of Treatment/Functional Goals Planned Interventions: bed mobility training, balance training, patient/family education, stair training, strengthening, gait training, neuromuscular re- education, stretching, transfer training Goals: See Physical Therapy Goals on Care Plan in [facility] electronic health record. Therapy Frequency: Daily Predicted Duration of Therapy Intervention: 3 days _ I CERTIFY THE NEED FOR THESE SERVICES FURNISHED UNDER THIS PLAN OF TREATMENT AND WHILE UNDER MY CARE (Physician co-signature of this document indicates review and certification of the therapy plan). , Referring Physician: Sandeep Nunez, DO Initial Assessment See Physical Therapy evaluation dated in [facility] electronic health record. Associated attestation - Romaine Eng MD - 03/04/2021 6:08 PM CDT I CERTIFY THE NEED FOR THESE SERVICES FURNISHED UNDER THIS PLAN OF TREATMENT AND WHILE UNDER MY CARE (Physician co-signature of this document indicates review and certification of the therapy plan). Utilization Review - Nkiki Gonzalez MD - 03/04/2021 12:10 PM CDT [...] Sincerely, Nikki Gonzalez MD MPH Utilization Review [facility]. Plan of Care - Amelia Kiran [...] RN Pharmacy-Admission Medication History - Varinder Daniels [facility] - 03/03/2021 2:10 PM CDT Admission medication history interview status for this patient is complete. See [facility] admission navigator for allergy information, prior to admission medications and immunization status. Medication history interview done, indicate source(s): Patient Medication history resources (including written lists, pill bottles, clinic record):[facility]: [id number] [place], [place] - [address] [address] Changes made to LEAD CARPENTER medication list: Added: all meds Changed: trazodone [...] was completed to the best of medical underwriter's ability using available resources (e.g. [employer] dispensing [...] City/State/ZIP Code Phon [place] [address] Care Lab [address] Lab (1st floor, no room number) [...] in clude each brachial plexus in the zbsir-lx-ypje. JOHN HAWTHORNE MD SYSTEM ID: ??[id number] Narrative 03/06/2021 2:48 PM CDT MRI OF [...] in clude each brachial plexus in the npeqs-zx-roxd. JOHN HAWTHORNE MD SYSTEM ID: [id number] Veronica Murrell PA-C IMG MRI ORDERABLES (ABNORMAL) [...] Address City/State/ZIP Code Phon [place] [address] Care Lab [address] Lab (1st floor, no room number) [...] HANNAH - ENEDINA POCT Performing Organization Address City/[facility]/ZIP Code Phon [place] [address] Care Lab [address] Lab (1st floor, no room number) [...] Address City/State/ZIP Code Ph[place] [address] Care Lab [address] Lab (1st floor, no room number) [...] City/State/ZIP Code Phon e Number [place] [address] Care Lab [address] Lab [...] MR CERVICAL SPINE W/O CONTRAST LOCATION: [facility] DATE/TIME: 03/05/2021 10:42 AM INDICATION: [...] MR CERVICAL SPINE W/O CONTRAST LOCATION: [facility] DATE/TIME: 03/05/2021 10:42 AM INDICATION: [...] Unknown CDT AM CDT Sandeep Nunez DO Rad POCT Performing Organization Address City/[facility]/ZIP Code Phon [place] [address] Care Lab [address] Lab (1st floor, no room number) [...] LAB - BEAKER POCT Performing Organization Address City/[facility]/ZIP Code Phon [place] [address] Care Lab [address] Lab (1st floor, no room number) [...] LAB - BEAKER POCT Performing Organization Address City/[facility]/ZIP Code Phon e Number [place] [address] Care Lab [address] Lab (1st floor, no room number) [...] LAB - BEAKER POCT Performing Organization Address City/[facility]/ZIP Code Ph[place] [address] Care Lab [address] Lab (1st floor, no room number) [...] City/State/ZIP Code Phon e Number [place] [address] Care Lab [address] Lab (1st floor, no room number) [...] City/State/ZIP Code [place] [address] Care Lab [address] Lab (1st floor, no room number) [...] City/State/ZIP Code [place] [address] Care Lab [address] Lab (1st floor, no room number) (ABNORMAL) Basic metabolic panel (03/04/2021 8:02 AM CDT) [facility] Method Time Signature Sodium 132 (L) [...] LAB - BLOOD ORDERABLES Performing Organization Address City/[facility]/[place]IP [place] [address] Care Lab [address] Lab (1st floor, no room number) [...] LAB - BEAKER POCT Performing Organization Address City/[facility]/ZIP Code Phon [place] [address] Care Lab [address] Lab (1st floor, no room number) [...] LAB - BEAKER POCT Performing Organization Address City/[facility]/ZIP Code Phon [place] [address] Care Lab [address] Lab (1st floor, no room number) [...] LAB - BLOOD ORDERABLES Performing Organization Address City/[facility]/ZIP Code [place] [phone] Care Lab [address] Lab (1st floor, no room number) [...] LAB - BLOOD ORDERABLES Performing Organization Address City/[facility]/ZIP Code [place] [address] Care Lab [address] Lab (1st floor, no room number) [...] Code Phon e Number [place] [address] Care Lab [address] Lab (1st floor, no room number) [...] LAB - BEAKER POCT Performing Organization Address City/[facility]/ZIP Code Phon e Number [place] [address] Care Lab [address] Lab (1st floor, no room number) [...] LAB - BLOOD ORDERABLES Performing Organization Address City/[facility]/ZIP [facility] [place]on [place] [phone] Care Lab [address] Lab (1st floor, no room number) [...] LAB - BLOOD ORDERABLES Performing Organization Address City/[facility]/ZIP Code [place] [address] Care Lab [address] Lab (1st floor, no room number) [...] LAB - BLOOD ORDERABLES Performing Organization Address City/[facility]/ZIP [place] [address] Care Lab [address] Lab (1st floor, no room number) [...] to chronic small vessel ischemic disease. JUAN LAEL MD SYSTEM ID: [id number] Deandre Alvarez MD [...] exposure or clinical presentation sugges ts COVID-19. ??[facility] are certified under the Clinical Laborat ory Improvement Amendments of 1988 (CLIA-88) as qualified to perform moderate and/or high complexity laboratory testing. Deandre Alvarez MD LAB - MICRO GENERAL ORDERABL ES Performing Organization Address City/State/ZIP [place] [phone] Care Lab [address] [facility] Lab (1st floor, no room number) (ABNORMAL) UA with Microscopic reflex to Culture (03/03/2021 11:03 AM CDT) [facility] Method Time Signature Color Urine Light Colorless, 03/03/2021 LABORATORY Yellow Straw, 11:28 AM Light CDT Yellow, Yellow Appearance Urine Clear Clear 03/03/2021 LABORATOR Y 11:28 AM CDT Glucose Urine 150 (A) Negative 03/03/2021 LABORATORY mg/dL 11:28 AM CDT Bilirubin Urine Negative Negative 03/03/2021 LABORATORY 11:28 AM CDT Ketones Urine Negative Negative 03/03/2021 LABORATORY mg/dL 11:28 AM CDT Specific [place] 1.017 1.003 - 03/03/2021 LABORATOR Y Urine [...] Address City/State/ZIP [place] [phone] Care Lab [address] Lab (1st floor, no room number) [...] plaque. There is no stenosis or dissection. [place]: There is some mild tracee [...] plaque. There is no stenosis or dissection. [place]: There is some mild tracee [...] RESULTS Atrial Rate [address] Interval 246 ms RADIOLOGY RESULTS QRS Duration 122 ms RADIOLOGY RESULTS QT 394 ms RADIOLOGY RESULTS QTc 462 ms RADIOLOGY RESULTS P [place] 69 degrees RADIOLOGY RESULTS R AXIS -72 degrees RADIOLOGY RESULTS T [place] 19 degrees RADIOLOGY RESULTS Interpretation Sinus rhythm [...] (ABNORMAL) Lipid Profile (03/03/2021 9:58 AM CDT) [facility] Method Time Signature Cholesterol 152 <200 [...] Organization Address City/State/ZIP Code Phon e Number [place], [place] [phone] Care [address] Lab (1st floor, no room number) [...] Organization Address City/State/[place] [address] Care [address] Lab (1st floor, no room number) [...] Address City/State/ZIP Code [place] [address] Care [address] Lab (1st floor, no room number) [...] LAB - BLOOD ORDERABLES Performing Organization Address City/[facility]/[place]IP [place] [address] Care [address] Lab (1st floor, no room number) [...] Organization Address City/State/[place] [address] Care Lab [address] Lab (1st floor, no room number) Extra Green Top ([place] Heparin) Tube (03/03/2021 9:58 AM CDT) P athologist Signature Hold Specimen JIC 03/03/2021 [facility] 11:18 AM CDT Specimen Anatomical Collection Method / Collection Time Recei karin Time (Source) Location / Volume Laterality Blood STRUCTURE OF LEFT Venipuncture / 03/03/2021 9:58 03/03 UPPER LIMB / Unknown AM CDT 10:07 AM CDT Unknown Deandre Alvarez MD LAB - BLOOD ORDERABLES Performing Organization Address City/[facility]/ZIP Code [facility] [place] [address] Care Lab [address] Lab (1st floor, no room number) [...] Organization Address City/State/[place] [address] Care Lab [address] Lab (1st floor, no room number) (ABNORMAL) CBC with platelets and differential (03/03/2021 9:58 AM CDT) [facility] Method Time Signature WBC Count 13.3 [...] LAB - BLOOD ORDERABLES Performing Organization Address City/[facility]/ZIP Code [place] [phone] Care Lab [address] Lab (1st floor, no room number) [...] LAB - BLOOD ORDERABLES Performing Organization Address City/[facility]/ZIP Code [place] [phone] Care Lab [address] Lab (1st floor, no room number) [...] LAB - BLOOD ORDERABLES Performing Organization Address City/[facility]/ZIP Code [place] [address] Care [address] Lab (1st floor, no room number) [...] LAB - BLOOD ORDERABLES Performing Organization Address City/[facility]/ZIP Code [place] [address] Care Lab [address] Lab (1st floor, no room number) [...] Address City/State/ZIP Code [place] [address] Care Lab [address] Lab (1st floor, no room number) [...] City/State/ZIP Code Phon e Number [place] [address] Care Lab [address] Lab [...] 1914, Administer intramuscular if an intravenous ro tun[place] is not available and notify provider when [...] 1914, Administer intramuscular if an intravenous ro [place] is not available and notify provider when [...] Order parameters not met - Comment: [phone] [id number] (Not Given - Provider: Amelia Kiran [...] stools.
documented in this encounter Care Teams Wheel Aligner Relationship Specialty Start Date End Date Mario Keith MD PCP - General Internal Medicine 11/28/[address] [address] documented as of this encounter
--- OUTSIDE RECORDS SUMMARY | 2022-03-06 09:13 | XMS_ITS | Encounter Summary ---
:1955 Author Organization [place] Address [address] [place] [address]. [place] [address] Care Team Providers Name Role Phone Mario Keith MD Primary Care Provider [phone] Encounter Details Date Type Department Care Team Description 11/28/2017 [facility] - [facility] [address] [place] [address] [place] [address] [facility] N [phone] [facility] [address] [place], [place] [address] Social History Tobacco Use Types [...] on filedocumented in this encounter Care Teams Larder Cook Relationship Specialty Start Date End Date Mario Keith MD PCP - General Internal Medicine 11/28/17 [facility] [address] [place] [address] documented as of this encounter
--- OUTSIDE RECORDS SUMMARY | 2022-03-06 09:13 | XMS_ITS | Clinical Summary ---
:1955 Author Organization [place] Address [address] [place] [address] Care Team Providers Name Role Phone Mario Keith MD Primary Care Provider [phone] Allergies Active Allergy Reactions Severity Noted Date [...] 07/06/2020, 11/14/2017 , Years (3 - PPSV23 if 07/04/2012 available, else PCV20) ZOSTER IMMUNIZATION Completed 09/05/2018, 11/14/2017 IPV IMMUNIZATION Aged Out No longer eligi ble based on patient 's age to complete this topic MENINGITIS IMMUNIZATION Aged Out No longe r eligible based on patient 's age to complete this topic Medical Devices Implanted Type Area Crown Attacher Device Shelf Model / Identifier Expiration Serial / Date Lot Cement Bone Simplex Hv 40g W/O Gentra Cement, N/A: YVON 04/18/2019 [id number] / Implanted: Qty: 2 on 11/28/2017 Bone Knee ORTHOPEDICS / [id number] Description: Implanted into bilateral kn ees Persona Partial Knee System Partial Bárbara cular Surface Left Medial Size J 8mm Thickness Total Joint Left: [email or web address] 08/17/2021 [id number] / Implanted: Qty: 1 on 11/28/2017 Component/Insert Knee / [id number] Insurance Payer Benefit Plan / Subscriber ID Effective Phone Address T ype Group Dates BCBS [place] OF [place] [id number] 2018-Prese [phone] [address] [place] [id number] Indemnity nt [address] [place] [address] MEDICARE MEDICARE [id number] 2012-Pres [phone] ATTN CLAI [place] Medicare ent 40 [address] [place] [address] Advance Directives For more information, please contact: [phone] Latest Code Status on File Code Status Date Activated Date Inactivated Comments Full Code 03/03/2021 3:38 PM 03/06/2021 6:26 PM All basic and advanced life-sustaining interventions are performed as oj ropriate Question Answer Comments Code status determined by: Discussion with patient/ legal de cision maker Care Teams Assembler Skylights Relationship Specialty Start Date End Date Mario Keith MD PCP - General Internal Medicine 11/28/17 [facility] [address] [place] [address]
--- OUTSIDE RECORDS SUMMARY | 2022-03-06 09:13 | XMS_ITS | Encounter Summary ---
:1955 Author Organization [place] Address [address] [place] [address] Care Team Providers Name Role Phone Mario Keith MD Primary Care Provider [phone] Encounter Details Date Type Department Care Team Description 07/20/2020 Telephone [facility] [address] [place] [address] Social History Tobacco Use Types [...] call back if he changes his mind. ERIES OFFICER Telephone Encounter - Toni Aponte - 07/20/2020 3:53 PM CST Wero Moser, Pt had bypass 2007 (said at our system, but I don't see here or HE). He's heard that he can get a lap band on top of it... I explained the unlikeliness of that. But also that you might discuss a revision. bmi 40.4 OK to leaved detailed VM ERIES OFFICER documented in this encounter Plan of Treatment Not on filedocumented as of this encounter Visit Diagnoses Not on filedocumented in this encounter Care Teams Dialysis Biomed Technician Relationship Specialty Start Date End Date Mario Keith MD PCP - General Internal Medicine 11/28/17 [facility] [address] [place] [address] documented as of this encounter
--- OUTSIDE RECORDS SUMMARY | 2022-03-06 09:14 | XMS_ITS | Encounter Summary ---
:1955 Author Organization [place] Address [address] [place] [address] Care Team Providers Name Role Phone Unavailable Primary Care Provider Unavailable Encounter Details Date Type Department Care Team Description 03/07/2009 Historic Notes INTERFACED REPORT Blas [facility]ates [facility] [address] [facility] [address] [place] [address] (Wo rk) Social History Tobacco Use Types Packs/Day Years Used Date Smoking Tobacco: Never Assessed Sex Assigned at Date Recorded Not on file documented as of this encounter Progress Notes Interface, Floor Layer - 08/05/2010 5:36 PM CDT Problem List [...]
--- OUTSIDE RECORDS SUMMARY | 2022-03-06 09:14 | XMS_ITS | Encounter Summary ---
:1955 Author Organization [place] Address [address] [place] [address] Care Team Providers Name Role Phone Unavailable Primary Care Provider Unavailable Encounter Details Date Type Department Care Team Description 03/08/2009 Historic Results [facility] [address] [place] [address], [address] [place] [address] (Wo rk) Social History Tobacco Use Types [...]
--- OUTSIDE RECORDS SUMMARY | 2022-03-06 09:14 | XMS_ITS | Encounter Summary ---
:1955 Author Organization [place] Address [address] [place] [address] Care Team Providers Name Role Phone Unavailable Primary Care Provider Unavailable Encounter Details Date Type Department Care Team Description 03/07/2009 Historic Notes INTERFACED REPORT David Minaya MD [facility] [address] [place] [address] (Wo rk) Social History Tobacco [...]
--- OUTSIDE RECORDS SUMMARY | 2022-03-06 09:14 | XMS_ITS | Encounter Summary ---
:1955 Author Organization [place] Address [address] [place] [address] Care Team Providers Name Role Phone Unavailable Primary Care Provider Unavailable Reason for Visit Reason Onset Date Comments Pt. Information/instruction 10/27/2012 Other Encounter Details Date Type Department Care Team Description 10/27/2012 Telephone Surgery Clinic Gaby Hicks, Pt. Samaria WAITE Information/instructio Building [address] [facility] n; 1st Floor, Clinic [address] [place] [address] [phone] Social History Tobacco Use Types Packs/Day Years Used Date Smoking Tobacco: Never Assessed Sex Assigned at Date Recorded Not on file documented as of this encounter Miscellaneous Notes Telephone Encounter - Gaby Hicks, RN - 10/27/2012 2:48 PM CDT Message copied by GABY HICSK on SatOct 27, 2012 2:48 PM ------ Message from: GRIFFIN COOMBS Created: SatOct 23, 2012 2:56 PM Regarding: pt questions on possible revision Contact: Pt had surgery done with Dr White out [facility] in 2007. 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 Pt has since gained weight back and is wondering about getting the ring surgery done to help him lose weight again. Pt wondering if any of the physicians here will do the ring surgery Pls call pt back to answer questions [phone] Thanks Coordinator talked to patient. Informed patient [...]
--- OUTSIDE RECORDS SUMMARY | 2022-03-06 09:14 | XMS_ITS | Encounter Summary ---
:1955 Author Organization [place] Address [address] [place] [address] Care Team Providers Name Role Phone Unavailable Primary Care Provider Unavailable Encounter Details Date Type Department Care Team Description 10/20/2007 Operative Report [facility] Em Merida MD (Overhead Door Technician) [address] Results [address] [place] [address] Social History Tobacco Use Types Packs/Day Years Used Date Smoking Tobacco: Never Assessed Sex Assigned at Date Recorded Not on file documented as of this encounter Progress Notes Em Merida - 10/27/2007 10:29 PM CDT FINAL 1st Farm Laborer: Kalpana Becker PA-C PREOPERATIVE DIAGNOSIS: 1. Morbid [...] kera Name: JETT GEORGES MRN: [id number] Account: [id number] : 1955 Procedure Date: 10/20/2007 Document: [id number] documented in this encounter Plan of Treatment Not on filedocumented as of this encounter Visit Diagnoses Not on filedocumented in this encounter
--- OUTSIDE RECORDS SUMMARY | 2022-03-06 09:14 | XMS_ITS | Encounter Summary ---
:1955 Author Organization [place] Address [address] [place] [address] Care Team Providers Name Role Phone Unavailable Primary Care Provider Unavailable Encounter Details Date Type Department Care Team Description 03/04/2009 Historic Notes INTERFACED REPORT David Minaya MD [facility] [address] [facility] [address] [address] [address] [place] [facility] [place] [address] (Wo rk) Social History Tobacco Use Types Packs/Day Years Used Date Smoking Tobacco: Never Assessed Sex Assigned at Date Recorded Not on file documented as of this encounter Progress Notes Graciela Minaya MD - 08/05/2010 5:44 PM CDT ATTENDING PHYSICIAN - Attending Note: I examined the patient and discussed the case with the physician carpenter assistant student who is severing as a [...]
--- OUTSIDE RECORDS SUMMARY | 2022-03-06 09:14 | XMS_ITS | Encounter Summary ---
:1955 Author Organization [place] Address [address] [place] [address] Care Team Providers Name Role Phone Unavailable Primary Care Provider Unavailable Reason for Visit Reason Onset Date Comments Abstract 05/28/2017 Encounter Details Date Type Department Care Team Description 05/28/2017 Documentation Only [facility] Erica Rodriguez bstract Surgical Weight Loss Par[facility] [address] [place] [address] [place] [address] [phone] Social History Tobacco Use Types Packs/Day Years Used Date Smoking Tobacco: Never Assessed Sex Assigned at Date Recorded Not on file documented as of this encounter Plan of Treatment Not on filedocumented as of this encounter Visit Diagnoses Not on filedocumented in this encounter
--- OUTSIDE RECORDS SUMMARY | 2022-03-06 09:14 | XMS_ITS | Encounter Summary ---
:1955 Author Organization [place] Address [address] [place] [address] Care Team Providers Name Role Phone Unavailable Primary Care Provider Unavailable Encounter Details Date Type Department Care Team Description 03/07/2009 Historic Results [facility] [address] [place] [address], [address] [place] [address] (Wo rk) Social History Tobacco Use Types [...]
--- OUTSIDE RECORDS SUMMARY | 2022-03-06 09:14 | XMS_ITS | Encounter Summary ---
:1955 Author Organization [place] Address [address] [place] [address] Care Team Providers Name Role Phone Unavailable Primary Care Provider Unavailable Encounter Details Date Type Department Care Team Description 11/12/2007 Historic Notes INTERFACED REPORT Interface, Transcript onMD Social History Tobacco Use Types Packs/Day Years Used Date Smoking Tobacco: Never Assessed Sex Assigned at Date Recorded Not on file documented as of this encounter Progress Notes Interface, Vp Legal Affairs - 08/06/2010 8:24 PM CDT BARIATRIC PROGRESS [...]
--- OUTSIDE RECORDS SUMMARY | 2022-03-06 09:14 | XMS_ITS | Encounter Summary ---
:1955 Author Organization [place] Address [address] [place] [address] Care Team Providers Name Role Phone Unavailable Primary Care Provider Unavailable Encounter Details Date Type Department Care Team Description 10/21/2007 Historic Results INTERFACED REPORT Alireza White MD [address] [facility] [address] [place] [address] (Wo rk) Social History Tobacco Use Types [...] SANTOS - BELELO POCT Performing Organization Address [facility] Phon e Number MISYS (ABNORMAL) Glucose by meter (10/21/2007 6:04 PM CDT) P athologist Signature Glucose 111 (H) 60 - 99 MISYS mg/dL Specimen Anatomical Collection Method Collection Time Receive d Time (Source) Location / / Volume Laterality 10/21/2007 6:04 PM 8 CDT 10:46 PM CDT Alireza SANTOS - BEAKER POCT Performing Organization Address [facility] Phon e Number MISYS (ABNORMAL) Glucose by meter (10/21/2007 11:35 AM CDT) P athologist Signature Glucose 134 (H) 60 - 99 MISYS mg/dL Specimen Anatomical Collection Method Collection Time Receive d Time (Source) Location / / Volume Laterality 10/21/2007 11:35 10/21/2007 AM CDT 10:46 PM CDT Alireza SANTOS - BELELO POCT Performing Organization Address [facility] Phon e Number MISYS (ABNORMAL) Hemoglobin (10/21/2007 10:05 AM CDT) P athologist Signature Hemoglobin 12.1 (L) 13.3 - 17.7 MISYS g/dL Specimen (Source) Anatomical Collection Method Collection Time Re ceived Time Location / / Volume Laterality 10/21/2007 10:05 10/21/2007 AM CDT Kalpana Ram PA-C LAB - BLOOD ORDERABLES Performing Organization Address [facility] Phon e Number MISYS (ABNORMAL) [...]
--- OUTSIDE RECORDS SUMMARY | 2022-03-06 09:14 | XMS_ITS | Encounter Summary ---
:1955 Author Organization [place] Address [address] [place] [address] Care Team Providers Name Role Phone Unavailable Primary Care Provider Unavailable Encounter Details Date Type Department Care Team Description 08/25/2007 Historic Notes INTERFACED REPORT Interface, Transcript onMD Social History Tobacco Use Types Packs/Day Years Used Date Smoking Tobacco: Never Assessed Sex Assigned at Date Recorded Not on file documented as of this encounter Progress Notes Interface, Wind Up Worker - 08/07/2010 12:05 AM CDT BARIATRIC FOLLOW [...]
--- OUTSIDE RECORDS SUMMARY | 2022-03-06 09:14 | XMS_ITS | Encounter Summary ---
:1955 Author Organization [place] Address [address] [facility] [place] [address] Care Team Providers Name Role Phone Unavailable Primary Care Provider Unavailable Encounter Details Date Type Department Care Team Description 10/21/2007 Results Only [facility] Kalpana Ram, [facility] AUDREY Results SURGICAL CONSULT [facility] CARL [address] [facility] [address] [place] [address] (Wo rk) Social History Tobacco Use Types Packs/Day Years Used Date Smoking Tobacco: Never Assessed Sex Assigned at Date Recorded Not on file documented as of this encounter Plan of Treatment Not on filedocumented as of this encounter Procedures Procedure Name Priority Date/Time Associated Diagnosis Comme [facility] UPPER GI W/O KUB Routine 10/21/2007 7:35 [...]
--- OUTSIDE RECORDS SUMMARY | 2022-03-06 09:14 | XMS_ITS | Encounter Summary ---
:1955 Author Organization [place] Address [address] [place] [address] Care Team Providers Name Role Phone Unavailable Primary Care Provider Unavailable Encounter Details Date Type Department Care Team Description 03/03/[address] [facility] Stewart DO [facility] [address] [facility] [place] [address] (Wo rk) Social History Tobacco Use Types Packs/Day Years Used Date Smoking Tobacco: Never Assessed Sex Assigned at Date Recorded Not on file documented as of this encounter Progress Notes Interface, Cotton Buyer - 04/24/2011 7:16 AM CONTAINER COORDINATOR FINAL CHIEF COMPLAINT: My family was concerned about me. HISTORY OF PRESENT ILLNESS: Jett Georges is a 53-year-old white male who presented to [facility] [place], secondary to increased depression. The patient also states that he was hoping to come into the hospital so he could get on disability. Patient does report a 3-year history of depression and anxiety. He states that it all started when he stopped smoking. He states that he recently talked to a pipe assembly worker and the pipe assembly worker has convinced him that it was all [...] patient states that he grew up in [place], [place]. He did graduate from high school. [...] coordination are all within normal limits. DIAGNOSES: [place] I: Major depressive disorder, recurrent, severe without psychotic features. Benzodiazepine dependency and possible alcohol abuse. [place] II: Deferred. [place] III: As per Internal Medicine. [place] IV: Poor insight into his mental health issues. [place] V: GAF: 40. PLAN AND RECOMMENDATIONS: At this time will adjust his antidepressant medications. Will take him off his Ativan with a phenobarbital taper. Will use Seroquel to help control his anxiety. Will get the patient connected with outpatient psychiatry and therapy. Electronically signed on 03/30/2009 22:52 by BLAS CATES DO MT: niecy Name: JETT GEORGES Account: [id number] : 1955 Admitted: [id number] Document: [id number] AINER COORDINATOR documented in this encounter Plan of Treatment Not on filedocumented as of this encounter Visit Diagnoses Not on filedocumented in this encounter
--- OUTSIDE RECORDS SUMMARY | 2022-03-06 09:14 | XMS_ITS | Encounter Summary ---
:1955 Author Organization [place] Address [address] [place] [address] Care Team Providers Name Role Phone Mario Keith MD Primary Care Provider [phone] Encounter Details Date Type Department Care Team Description 11/27/[facility] [place] [address] [place] [address] [place], [place] [phone] [address] Social History Tobacco Use Types Packs/Day Years [...] sitting Prep: ChloraPrep Patient monitoring: heart rate, bus monitor, continuous pulse ox and blood pressure [...] pressure, heart rate, continuous pulse oximetry and bus monitor Laterality: right Injection technique: ultrasound guided [...] pressure, heart rate, continuous pulse oximetry and bus monitor Laterality: left Injection technique: ultrasound guided [...] on filedocumented in this encounter Care Teams Rehabilitation Director Relationship Specialty Start Date End Date Mario Keith MD PCP - General Internal Medicine 11/28/17 [facility] [address] [place] [address] documented as of this encounter
--- OUTSIDE RECORDS SUMMARY | 2022-03-06 09:14 | XMS_ITS | Encounter Summary ---
:1955 Author Organization [place] Address [address] [place] [address] Care Team Providers Name Role Phone Unavailable Primary Care Provider Unavailable Encounter Details Date Type Department Care Team Description 03/03/[address] [facility] Blas Cates, (Operations And Maintenance Manager) [facility] [address] [facility] [place] [address] (Wo rk) Social History Tobacco Use Types Packs/Day Years Used Date Smoking Tobacco: Never Assessed Sex Assigned at Date Recorded Not on file documented as of this encounter Progress Notes Interface, Operations And Maintenance Manager - 03/30/2009 10:58 PM [employer] BOSS FINAL DISCHARGE DIAGNOSES: AXIS I: 1. Major [...] DO MT: SONYA Name: JETT GEORGES Account: [id number] : 1955 Admit Date: Discharge Date: 03/08/2009 Document: [id number] STMAS [employer] BOSS documented in this encounter Plan of Treatment Not on filedocumented as of this encounter Visit Diagnoses Not on filedocumented in this encounter
--- OUTSIDE RECORDS SUMMARY | 2022-03-06 09:14 | XMS_ITS | Encounter Summary ---
:1955 Author Organization [place] Address [address] [place] [address] Care Team Providers Name Role Phone Unavailable Primary Care Provider Unavailable Encounter Details Date Type Department Care Team Description 10/20/2007 Historic Notes INTERFACED REPORT Interface, Transcript onMD Social History Tobacco Use Types Packs/Day Years Used Date Smoking Tobacco: Never Assessed Sex Assigned at Date Recorded Not on file documented as of this encounter Progress Notes Interface, Retail Assistant Manager - 08/06/2010 9:30 PM CDT General Information - How to be addressed Leandro - pharmaceutical salesperson to Gabriella Foster (sister) notify: - Phone 1: [phone] - pharmaceutical salesperson #2: Leandro Curiel (father) - Phone 1: [phone] - pharmaceutical salesperson #3: Nusrat Vera (friend) - Phone 1: [phone] - Patient's Spoken Language, Mauritian communication style Advance Directive - Do you [...] Considerations - Developmental None Learning Considerations - Anglican Learning None Considerations Activity-Exercise/Self Care - Ambulation [...] life Values/Beliefs/Spiritual Care - F: Catherine: Does Adventism culture/spirituality/ taoist play an important part in your life? - Would you like Does not wish to have anyone contacted pastoral care/clergy/senior graduate advisor notified? Mutuality/Individual Preferences - What information [...] Values/Beliefs/Spiritual Care, Mut uality/Individual Preferences Interface, Retail Assistant Manager - 08/06/2010 9:27 PM CDT Bariatric [...]
--- OUTSIDE RECORDS SUMMARY | 2022-03-06 09:14 | XMS_ITS | Encounter Summary ---
:1955 Author Organization [place] Address [address] [place] [address] Care Team Providers Name Role Phone Unavailable Primary Care Provider Unavailable Encounter Details Date Type Department Care Team Description 03/04/2009 Consultation [facility] Results [facility] [address] [place] [address] (Wo rk) Social History Tobacco [...] extremities intact grossly in all 4 extremities, statistician is 5/5 bilaterally. LABORATORY DATA: His comprehensive metabolic battery was normal with the exception of glucose whichis elevated to 210. His TSH was 2.8. His GGT was 48. Records from [facility] indicated his CBC was normal, and [...] STUDENT MT: dougie Name: JETT GEORGES Account: [id number] : 1955 Consult Date: 03/04/2009 Document: [id number] cc: Shukri Becker DO documented in this encounter Plan of Treatment Not on filedocumented as of this encounter Visit Diagnoses Not on filedocumented in this encounter
--- OUTSIDE RECORDS SUMMARY | 2022-03-06 09:14 | XMS_ITS | Encounter Summary ---
:1955 Author Organization [place] Address [address] [place] [address] Care Team Providers Name Role Phone Unavailable Primary Care Provider Unavailable Encounter Details Date Type Department Care Team Description 03/04/2009 [facility] [address] [place] [address] (Wo rk) Social History Tobacco Use Types [...] LAB - BLOOD ORDERABLES Performing Organization Address City/[facility]/ZIP Code Phon e Number MISYS Vitamin B12 [...]
--- OUTSIDE RECORDS SUMMARY | 2022-03-06 09:14 | XMS_ITS | Encounter Summary ---
:1955 Author Organization [place] Address [address] [place] [address] Care Team Providers Name Role Phone Unavailable Primary Care Provider Unavailable Encounter Details Date Type Department Care Team Description 03/06/2009 Historic Results [facility] [address] [place] [address] (Wo rk) Social History Tobacco Use Types [...]
--- OUTSIDE RECORDS SUMMARY | 2022-03-06 09:14 | XMS_ITS | Encounter Summary ---
:1955 Author Organization [place] Address [address] [facility] [place] [address] Care Team Providers Name Role Phone Unavailable Primary Care Provider Unavailable Reason for Visit Reason Onset Date Comments Patient Request 10/23/2012 Encounter Details Date Type Department Care Team Description 10/23/2012 Telephone [facility] Weight Alireza White MD Patient Request Management Clinic Ed lexis [address] [place] [place] [place] [address] [address] [place] [id number] [phone] Social History Tobacco Use Types Packs/Day Years [...]
--- OUTSIDE RECORDS SUMMARY | 2022-03-06 09:14 | XMS_ITS | Encounter Summary ---
:1955 Author Organization [place] Address [address] [place] [address] Care Team Providers Name Role Phone Unavailable Primary Care Provider Unavailable Reason for Visit Reason Onset Date Comments Clinic Care Coordination - Initial 02/27/2016 Encounter Details Date Type Department Care Team Description 02/27/2016 Telephone General Surgery Gaby Sanford, Clinic Care [address] [facility] RN Coordination - Initial 4th Floor [address] [address] [place], [place] [phone] (Wo rk) Social History Tobacco Use Types Packs/Day Years Used Date Smoking Tobacco: Never Assessed Sex Assigned at Date Recorded Not on file documented as of this encounter Miscellaneous Notes Telephone Encounter - Gaby Sanford RN - 02/27/2016 3:25 PM CDT Referral from [employer] website. Patient has history of RYGB, would not be a candidate for the intragastric balloon. Encourage patient to set up appt for medical weight management. Contact information given. documented in this encounter Plan of Treatment Not on filedocumented as of this encounter Visit Diagnoses Not on filedocumented in this encounter
--- OUTSIDE RECORDS SUMMARY | 2022-03-06 09:14 | XMS_ITS | Encounter Summary ---
:1955 Author Organization [place] Address [address] [place] [address] Care Team Providers Name Role Phone Unavailable Primary Care Provider Unavailable Encounter Details Date Type Department Care Team Description 03/04/2009 Historic Notes INTERFACED REPORT Interface, Transcript on, Social History Tobacco Use Types Packs/Day Years Used Date Smoking Tobacco: Never Assessed Sex Assigned at Date Recorded Not on file documented as of this encounter Progress Notes Interface, Bindery Cutter Operator - 08/05/2010 5:43 PM CDT General Information - Has NOT attended OT 14:00 as of: Plan - Plan: Encourage attendance and participation. ALISHA Vieyra (OTR)[Signed 15:20] Authored: General Information, Plan documented in this encounter Plan of Treatment Not on filedocumented as of this encounter Visit Diagnoses Not on filedocumented in this encounter
--- OUTSIDE RECORDS SUMMARY | 2022-03-06 09:14 | XMS_ITS | Encounter Summary ---
:1955 Author Organization [place] Address [facility] [place] [address] Care Team Providers Name Role Phone Mario Keith MD Primary Care Provider [phone] Encounter Details Date Type Department Care Team Description 06/20/2012 Abstract [facility] Weight MichaelErica lozano, Management Clinic Ed lexis PA-C [address] [facility] [address] [place] [address] [place] [phone] Social History Tobacco Use Types Packs/Day Years Used Date Smoking Tobacco: Never Assessed Sex Assigned at Date Recorded Not on file documented as of this encounter Plan of Treatment Not on filedocumented as of this encounter Visit Diagnoses Not on filedocumented in this encounter Care Teams Family Caseworker Relationship Specialty Start Date End Date Mario Keith MD PCP - General Internal Medicine 11/28/17 [facility] [address] [place] [address] documented as of this encounter
--- OUTSIDE RECORDS SUMMARY | 2022-03-06 09:14 | XMS_ITS | Encounter Summary ---
:1955 Author Organization [place] Address [address] [place] [address] Care Team Providers Name Role Phone Unavailable Primary Care Provider Unavailable Encounter Details Date Type Department Care Team Description 03/05/2009 Historic Results [facility] [address] [facility] [place] [address] (Wo rk) Social History Tobacco Use Types [...]
--- OUTSIDE RECORDS SUMMARY | 2022-03-06 09:14 | XMS_ITS | Encounter Summary ---
:1955 Author Organization [place] Address [address] [place] [address] Care Team Providers Name Role Phone Unavailable Primary Care Provider Unavailable Encounter Details Date Type Department Care Team Description 10/20/2007 Historic Results INTERFACED REPORT Alireza White MD [address] [facility] [place] [address] (Wo rk) Social History Tobacco Use Types [...] BLOOD ORDERABLES Performing Organization Address [facility] Phon e Number MISYS (ABNORMAL) Glucose by meter (10/20/2007 1:37 PM CDT) P athologist Signature Glucose 136 (H) 60 - 99 MISYS mg/dL Specimen Anatomical Collection Method Collection Time Receive d Time (Source) Location / / Volume Laterality 10/20/2007 1:37 PM 8 6:15 CDT AM CDT Alireza White MD LAB - BEAKER POCT Performing Organization Address [facility] Phon e Number MISYS (ABNORMAL) Glucose (10/20/2007 6:36 AM CDT) athologist Signature Glucose 125 (H) 60 - 99 MISYS mg/dL Specimen Anatomical Collection Method Collection Time Receive d Time (Source) Location / / Volume Laterality 10/20/2007 6:36 AM 8 6:39 CDT AM CDT Alireza White MD LAB - BLOOD ORDERABLES Performing Organization Address [facility] Phon e Number MISYS Hemoglobin (10/20/2007 6:36 AM CDT) athologist Signature Hemoglobin 14.0 13.3 - 17.7 MISYS g/dL Specimen Anatomical Collection Method Collection Time Receive d Time (Source) Location / / Volume Laterality 10/20/2007 6:36 AM 8 6:39 CDT AM CDT Authorizing Provider Result Yonas White MD LAB - BLOOD ORDERABLES Performing Organization Address [facility] Phon e Number MISYS documented in this encounter Visit Diagnoses Not on filedocumented in this encounter
--- OUTSIDE RECORDS SUMMARY | 2022-03-06 09:14 | XMS_ITS | Encounter Summary ---
:1955 Author Organization [place] Address [address] [place] [address] Care Team Providers Name Role Phone Unavailable Primary Care Provider Unavailable Encounter Details Date Type Department Care Team Description 03/05/2009 Historic Notes INTERFACED REPORT Davdi Minaya MD [facility] [address] [place] [facility] [address] (Wo rk) Social History Tobacco [...]
--- OUTSIDE RECORDS SUMMARY | 2022-03-06 09:14 | XMS_ITS | Encounter Summary ---
:1955 Author Organization [place] Address [address] [place] [address] Care Team Providers Name Role Phone Unavailable Primary Care Provider Unavailable Encounter Details Date Type Department Care Team Description 03/07/2009 Historic Notes INTERFACED REPORT Interface, Transcript onMD Social History Tobacco Use Types Packs/Day Years Used Date Smoking Tobacco: Never Assessed Sex Assigned at Date Recorded Not on file documented as of this encounter Progress Notes Interface, Dope Dry House Operator - 08/05/2010 5:35 PM CDT General Information - Has NOT attended OT 13:00 as of: Plan - Plan: Continue to invite to groups to assess. ESTER Nicholson (MILLER)[Signed 12:38] Authored: General Information, Plan documented in this encounter Plan of Treatment Not on filedocumented as of this encounter Visit Diagnoses Not on filedocumented in this encounter
--- OUTSIDE RECORDS SUMMARY | 2022-03-06 09:14 | XMS_ITS | Encounter Summary ---
:1955 Author Organization [place] Address [address] [place] [address] Care Team Providers Name Role Phone Unavailable Primary Care Provider Unavailable Encounter Details Date Type Department Care Team Description 03/08/2009 Historic Notes INTERFACED REPORT Interface, Transcript on, Social History Tobacco Use Types Packs/Day Years Used Date Smoking Tobacco: Never Assessed Sex Assigned at Date Recorded Not on file documented as of this encounter Progress Notes Interface, Medical Review Specialist - 08/05/2010 5:32 PM CDT Summary of Progress and Discharge Plan - Summary: Pt's therapist appt is at [facility] in [place] and pt needs to be their at 12:30 to check in and Terrie (therapist) will need to make the referal for med management. - Symptoms to Report: thoughts of suicide, dial 911 - Lifestyle Adjustment: Do not use drugs or alcohol Psychiatry Follow-Up - Therapist: Terrie Rodríguez - Therapist Address: [address] [place] [address]. - Therapist Phone Number: - Therapist Appointment 01:00 Date/Time: Provider Information - Discharged From: [facility] - Unit: 30 - Unit - [...] Avoid alcohol. Resources - Resources Crisis Intervention: 398.999.2292 or [phone] (TTY: 731.345.2607); call anytime for help. [employer]ness (www.[place].apryl.org):: 107-571-3301 or 373-503-5047. Signatures BRITTNEE HART (Psychotherapist)[Signed 11:59] Authored: Summary of Progress and Discharge Plan, Psychiatry Follow-Up Mariann Sierra (RN)[Signed 11:45] Authored: Summary of Progress and Discharge Plan, Provider Information, Discharge Teaching Checklist, Resources documented in this encounter Plan of Treatment Not on filedocumented as of this encounter Visit Diagnoses Not on filedocumented in this encounter
--- OUTSIDE RECORDS SUMMARY | 2022-03-06 09:14 | XMS_ITS | Encounter Summary ---
:1955 Author Organization [place] Address [address] [place] [address] Care Team Providers Name Role Phone Unavailable Primary Care Provider Unavailable Encounter Details Date Type Department Care Team Description 03/03/2009 Historic Notes INTERFACED REPORT Interface, Transcript on, Social History Tobacco Use Types Packs/Day Years Used Date Smoking Tobacco: Never Assessed Sex Assigned at Date Recorded Not on file documented as of this encounter Progress Notes Interface, Material Carrier - 08/05/2010 5:47 PM CDT General Information [...] - Second Staff (name) Bud Ruano - furniture salesperson #1: Leandro Curiel - Relationship to Father patient #1: - Phone 1: [phone] - Patient's spoken language; Montserratian or Bilingual communication style Advance Directive - [...] few days Hospitalization - Primary Care Mario Kelly--[facility] Physician - Do you have none restrictions [...] - Do you have yes, 7 yo --non-penitentiary parent but close to responsibility for his [...]
--- OUTSIDE RECORDS SUMMARY | 2022-03-06 09:14 | XMS_ITS | Encounter Summary ---
:1955 Author Organization [place] Address [address] [place] [address] Care Team Providers Name Role Phone Unavailable Primary Care Provider Unavailable Encounter Details Date Type Department Care Team Description 10/22/2007 Historic Notes INTERFACED REPORT Interface, Transcript on, Social History Tobacco Use Types Packs/Day Years Used Date Smoking Tobacco: Never Assessed Sex Assigned at Date Recorded Not on file documented as of this encounter Progress Notes Interface, Materials Research Engineer - 08/06/2010 9:23 PM CDT Discharge Planning - Discharge From: [facility] - Patient Care Unit: Station 33 [...] Dr. White call: - Phone number of [facility] [phone] patient should call: Other Discharge Education, Materials, [...] Materials, and Instructions, Follow Up Care Interface, Materials Research Engineer - 08/06/2010 9:23 PM CDT BARIATRIC SURGERY [...]
--- OUTSIDE RECORDS SUMMARY | 2022-03-06 09:15 | XMS_ITS | Encounter Summary ---
:1955 Author Organization [place] Address [facility] [place] [address] Care Team Providers Name Role Phone Unavailable Primary Care Provider Unavailable Encounter Details Date Type Department Care Team Description 04/07/2007 Consultation [facility] Madhu Toney MD [address] [facility] [place] [phone] (Wo rk) Social History Tobacco Use Types Packs/Day Years Used Date Smoking Tobacco: Never Assessed Sex Assigned at Date Recorded Not on file documented as of this encounter Progress Notes Madhu Toney - 05/20/2007 9:06 PM HERBARIUM CURATOR FINAL CHIEF COMPLAINT: Sleep apnea, reflux, hyperlipidemia, [...] include diet pills over 30 years ago, [id number] diets, exercise. His attempts for weight loss, [...] one who had it done down in [place]. The patient is setting up his appointment [...] kathi Name: JETT GEORGES MRN: [id number] Account: [id number] : 1955 Consult Date: 04/07/2007 Document: [id number] ARIUM CURATOR documented in this encounter Plan of Treatment Not on filedocumented as of this encounter Visit Diagnoses Not on filedocumented in this encounter
== END 2022-03-06 08:57 | disposition home or self-care (01) ==
LOC: NM 08:56
PROVIDERS: PCP Internal Medicine; Visit Provider Physician Assistant Surgical
DX: T84.038A Mechanical loosening of other internal prosthetic joint, initial encounter (principal); Z96.652 Presence of left artificial knee joint; Z96.651 Presence of right artificial knee joint
CPT/HCPCS: 78300; 78315; A9503

== ENCOUNTER 2022-03-13 10:46 | Emergency (ER) | payer MEDICARE, BC, SELFPAY ==
[2022-03-13 11:04] VITALS: BP 163/82; PULSE 79; RESP 20; TEMP 36.8; O2SAT 100; BMI 55.7
--- NOTE | 2022-03-13 11:38 | CRLHL7_ITS ---
For Patients: As a result of the Century Cures Act, medical imaging exams and procedure reports are released immediately into your electronic medical record. You may view this report before your referring provider. If you have questions, please contact your health care provider. INDICATION: Pain and swelling. TECHNIQUE: Ultrasound venous duplex lower right extremity. Compression venous exam was performed using rosenbaum-scale, color Doppler, and spectral Doppler analysis. COMPARISON: DVT study from October 01, 2021 and 12/27/2021. FINDINGS: Deep veins: Sonographic imaging of the right common femoral, deep femoral, superficial femoral, popliteal, posterior tibial and the contralateral left common femoral veins shows loss of compressibility of the peroneal veins, compatible with thrombus. The other vessels are fully compressible with normal color Doppler blood flow. Superficial veins: Greater saphenous vein is fully compressible. Soft tissues: No popliteal cyst. Ovoid hypodensity in the soft tissues of the proximal calf measures 14.6 x 2.6 x 7.4 cm, and is likely a hematoma or debris containing fluid collection. IMPRESSION: 1. 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 2. Unchanged soft tissue collection, possibly hematoma. Findings were discussed with Dr. Herrera on 03/13/2022 at 1:32 p.m. Dictated by Ric Walker MD @ 03/13/2022 1:35:06 PM (Electronically Signed)
--- NOTE | 2022-03-13 11:39 | ED_ITS ---
HPI - General Adult General Chief complaint: Lower Extremity Swelling Stated complaint: Blood clot in leg Time Seen by Provider: 03/13/22 10:49 History of Present Illness HPI narrative: This 66-year-old male comes in reporting increased pain in his right lower extremity. 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 He also is taking apixaban because there was evidence of a blood clot. He is not reporting any shortness of breath or chest pain. He states that his right leg and knee hurt more in these past few days. He states that he has difficulty getting up to ambulate because of increased pain. Pain is relieved if he is not ambulating. Related Data Home Medications Medication Instructions Recorded Confirmed aspirin 81 mg tablet,delayed 81 mg PO QDAY 11/27/21 03/08/22 release lisinopril 20 mg tablet 20 mg PO QDAY 11/27/21 03/08/22 meloxicam 15 mg tablet 15 mg PO QDAY 11/27/21 03/08/22 metformin 500 mg tablet 1,000 mg PO BID 11/27/21 03/08/22 omeprazole 40 mg capsule,delayed 40 mg PO DAILY 11/27/21 03/08/22 release quetiapine 200 mg tablet 200 mg PO QDAY 11/27/21 03/08/22 tamsulosin 0.4 mg capsule 0.4 mg PO QDAY 11/27/21 03/08/22 trazodone 50 mg tablet 50 mg PO .hs 11/27/21 03/08/22 peg 3350-electrolytes 236 240 ml PO .4000mL 02/09/22 03/08/22 gram-22.74 gram-6.74 gram-5.86 gram solution (Golytely) Previous Rx's Medication Instructions Recorded glimepiride 4 mg tablet 4 mg PO QDAY #90 tabs 11/27/21 sitagliptin 100 mg tablet 100 mg PO QDAY #30 tabs 11/27/21 allopurinol 300 mg tablet 300 mg PO QDAY Gout #90 tabs 12/13/21 gabapentin 300 mg capsule 900 mg PO TID #270 caps 12/20/21 apixaban 5 mg (74 tabs) tablets in See Rx Instructions PO .COMPLEX 12/27/21 a dose pack #74 ea apixaban 5 mg tablet 5 mg PO BID DVT #60 tabs 01/17/22 tramadol 50 mg tablet 50 - 100 mg PO BID PRN pain #180 01/17/22 tabs simvastatin 20 mg tablet 20 mg PO .hs Hyperlipidemia #90 01/24/22 tabs lorazepam 1 mg tablet 1 mg PO BID PRN anxiety #90 tabs 02/12/22 ketoconazole 2 % shampoo 1 applic topical 3XW #120 mL 02/13/22 sertraline 50 mg tablet 100 mg PO QDAY Anxiety #90 tabs 02/15/22 semaglutide 0.25 mg or 0.5 mg (2 See Rx Instructions .Route 02/22/22 mg/1.5 mL) subcutaneous pen .COMPLEX #1.5 mL injector (Ozempic) hydrocodone 5 mg-acetaminophen 325 1 tab PO QHS PRN pain #10 tabs 03/08/22 mg tablet hydrocodone 5 mg-acetaminophen 325 1 tab PO Q4-6H PRN pain #20 tabs 03/13/22 mg tablet Allergies Allergy/AdvReac Type Severity Reaction Status Date / Time No Known Allergies Allergy Verified 03/08/22 11:31 Review of Systems Status of ROS: Reports: 10 or more systems reviewed and unremarkable except as noted in History and below Narrative: Constitutional: No fevers, no weight gain or loss. Eyes: No discharge. No vision changes. HENT: No congestion, no sore throat, no ear pain. Cardiovascular: No chest pain, no palpitations. Respiratory: No shortness of breath, no wheezes, no cough. Gastrointestinal: No abdominal pain, no vomiting, no diarrhea. Genitourinary: No dysuria, no hematuria. Musculoskeletal: Normal range of motion. Right knee pain and swelling in the right lower extremity. Skin: No rashes, no pruritis. Neurological: No dizziness, weakness, sensory change, speech change. Endo/Heme/Allergies: No bruising or bleeding. No polydipsia. Pysch: no suicidality, no anxiety, no insomnia. All other systems reviewed and are negative. [facility] Medical History (Updated 03/13/22 @ 13:44 by Terry Herrera MD) Anxiety Anxiety DVT (deep venous thrombosis) Gout Headache disorder (05/2016) Hypertension Hypertriglyceridemia Hyponatremia Incomplete right bundle branch block (RBBB) Iron deficiency anemia Morbid obesity with BMI of 40.0-44.9, adult Osteoarthritis Peripheral neuropathy Seborrheic dermatitis of scalp Type 2 diabetes mellitus Surgical History (Updated 02/27/22 @ 11:14 by Ede Lyle PA-C) History of gastric bypass (2008) History of inguinal hernia repair History of tonsillectomy Family History Brother Colon cancer Social History Narrative: , 2 adult kids disabled due to joint pains does not exercise but 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 excessive drinking alcohol- 24 beers/week non-smoker HX tobacco use Smoking Status: Former smoker What tobacco products do you use: cigarettes Smoking quit date/years: <= 15 years ago Do you use any of these nicotine containing products: None How often do you have a drink containing alcohol: monthly or less How often do you have six or more drinks on one occasion: Never AUDIT-C Alcohol total score: 1 Non-prescribed substance use: denies use Exam Narrative: Exam Narrative: Constitutional: Well-developed, well-nourished, no acute distress. HEENT: Normocephalic, atraumatic. Neck: Normal range of motion. Nontender. Supple. Heart: Regular. No murmurs. Normal rate. Intact distal pulses. Lungs: Clear to auscultation. No chest discomfort. No wheezes, rhonchi, or rales. Abdomen: Normal bowel sounds. Nontender. No rebound tenderness. Genitalia: Deferred. Back: No midline tenderness. Normal range of motion. Extremities: Normal range of motion. No injury. He has diffuse tenderness and mild swelling of the right lower extremity from the knee on down. There is no erythema or sign of infection. He is able to raise his right leg from the bed without difficulty. Skin: Intact. No rash. Warm. No erythema or pallor. Neurologic: No altered sensation. No weakness. Alert and oriented. Psychiatric: No suicidality. No anxiety or depression. No insomnia. Nursing notes and vitals signs are reviewed. Const: Vital Signs, click to edit/add: Vital Signs - 24 hr 03/13/22 11:04 Temperature 98.2 F Pulse Rate [Right Pulse Oximeter] 79 Respiratory Rate 20 Blood Pressure [Ri ght Upper Arm] 163/82 H Pulse Oximetry 100 Oxygen Delivery Me thod Room Air Course Vital Signs Vital signs: Initial Vital Signs Temperature 98.2 F 03/13/22 11:04 Temperature Source Temporal Artery Scan 03/13/22 11:04 Pulse Rate 79 03/13/22 11:04 Respiratory Rate 20 03/13/22 11:04 Blood Pressure 163/82 H 03/13/22 11:04 Blood Pressure Mean 109 03/13/22 11:04 Blood Pressure Position Semi-Fowlers 03/13/22 11:04 Pulse Oximetry 100 03/13/22 11:04 Oxygen Delivery Method 03/13/22 11:04 Vital Signs Temperature 98.2 F 03/13/22 11:04 Pulse Rate 79 03/13/22 11:04 Respiratory Rate 20 03/13/22 11:04 Blood Pressure 163/82 H 03/13/22 11:04 Pulse Oximetry 100 03/13/22 11:04 Oxygen Delivery Method 03/13/22 11:04 Temperature 98.2 F 03/13/22 11:04 Pulse Rate 79 03/13/22 11:04 Respiratory Rate 20 03/13/22 11:04 Blood Pressure 163/82 H 03/13/22 11:04 Pulse Oximetry 100 03/13/22 11:04 Oxygen Delivery Method 03/13/22 11:04 Medical Decision Making MDM Narrative Medical decision making narrative: This patient comes in with worsening pain in his right knee and calf region. He is taking Eliquis for unknown venous thrombus. But he reports increased pain and swelling. He has an artificial knee on his right leg that is loose and needs revision. He has a follow-up appointment with orthopedic clinic elsewhere to evaluate this matter. Ultrasound imaging today shows no new thrombus. There is the previous thrombus identified which is unchanged from previous. He does also have some type of effusion emanating from his right knee. These are reassuring findings. The patient is having increased pain and I encouraged him to use a walker or crutches as needed as bearing weight on hardware that is loosen his knee may be aggravating the problem. He did receive a prescription for 20 tablets of [place] and understands that this would not be refilled out of the ER. Additionally he had a intramuscular injection of Dilaudid 1 mg. Imaging Data US R Lower Extremity: Radiologist's impression: 1. 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 2. Unchanged soft tissue collection, possibly hematoma. Discharge Plan Discharge Clinical Impression: DVT (deep venous thrombosis), Aseptic loosening of prosthetic knee Patient Disposition: Home, Self-Care Condition: Stable Additional Instructions: Take medications as needed and indicated. It is recommended to use a walker or crutches when ambulating to minimize weight-bearing on the right leg. Follow-up with orthopedic clinic as scheduled. Return if worsening. Prescriptions: New hydrocodone-acetaminophen 5-325 mg tablet 1 tab PO Q4-6H PRN (Reason: pain) Qty: 20 0RF No Action tramadol 50 mg tablet 50 - 100 mg PO BID PRN (Reason: pain) Qty: 180 2RF Label Comments: take 1-2 tablets by mouth every 6 hours as needed apixaban 5 mg tablet 5 mg PO BID Qty: 60 1RF omeprazole 40 mg capsule,delayed release(DR/EC) 40 mg PO DAILY Label Comments: TAKE ONE CAPSULE BY MOUTH DAILY metformin 500 mg tablet 1,000 mg PO BID quetiapine 200 mg tablet 200 mg PO QDAY Label Comments: TAKE ONE TABLET BY MOUTH AT BEDTIME tamsulosin 0.4 mg capsule 0.4 mg PO QDAY Label Comments: TAKE ONE CAPSULE BY MOUTH DAILY lisinopril 20 mg tablet 20 mg PO QDAY Label Comments: take 1 tablet by mouth daily trazodone 50 mg tablet 50 mg PO .hs Label Comments: take 1.5 tablets by mouth 3 times daily meloxicam 15 mg tablet 15 mg PO QDAY Label Comments: TAKE ONE TABLET BY MOUTH DAILY aspirin 81 mg tablet,delayed release (DR/EC) 81 mg PO QDAY glimepiride 4 mg tablet 4 mg PO QDAY Qty: 90 1RF sertraline 50 mg tablet 100 mg PO QDAY Qty: 90 2RF hydrocodone-acetaminophen 5-325 mg tablet 1 tab PO QHS PRN (Reason: pain) Qty: 10 0RF apixaban 5 mg (74 tabs) tablets,dose pack See Rx Instructions .ROUTE .COMPLEX Qty: 74 0RF Rx Instructions: orally per package directions sitagliptin 100 mg tablet 100 mg PO QDAY Qty: 30 2RF Rx Instructions: 1/2 QD x 2 weeks then 1 QD allopurinol 300 mg tablet 300 mg PO QDAY Qty: 90 3RF Label Comments: TAKE 1 TABLET BY MOUTH DAILY gabapentin 300 mg capsule 900 mg PO TID Qty: 270 11RF simvastatin 20 mg tablet 20 mg PO .hs Qty: 90 3RF peg 3350-electrolytes [Golytely] 236-22.74-6.74 -5.86 gram recon soln 240 ml PO .4000mL Label Comments: 4000 ml once Rx Instructions: until fecal effluent is clear lorazepam 1 mg tablet 1 mg PO BID PRN (Reason: anxiety) Qty: 90 0RF ketoconazole 2 % shampoo 1 applic topical 3XW Qty: 120 1RF Ozempic 0.25 mg or 0.5 mg(2 mg/1.5 mL) pen injector See Rx Instructions .ROUTE .COMPLEX Qty: 1.5 0RF Dose Instruction: INJECT 0.5MG SUBCUTANEOUSLY ONCE WEEKLY. Rx Instructions: INJECT 0.5MG SUBCUTANEOUSLY ONCE WEEKLY. Follow Up/Referrals: Mario Keith MD [Primary Care Provider] - Stand [facility]one [facility]
--- OUTSIDE RECORDS SUMMARY | 2022-03-13 11:48 | XMS_ITS | Clinical Summary ---
:1955 Author Organization [facility] Address [address] [place] [address] Care Team Providers Name Role Phone Mario Keith MD Primary Care Provider [phone] Allergies Active Allergy Reactions Severity Noted Date [...] this topic Medical Devices Implanted Type Area Decoration Checker Device Shelf Model / Identifier Expiration Serial / Date Lot Cement Bone Simplex Hv 40g W/O Gentra Cement, N/A: YVON 04/18/2019 [id number] / Implanted: Qty: 2 on 11/28/2017 Bone Knee ORTHOPEDICS / [id number] Description: Implanted into bilateral kn ees Persona Partial Knee System Partial Bárbara cular Surface Left Medial Size J 8mm Thickness Total Joint Left: [email or web address] 08/17/2021 [id number] / Implanted: Qty: 1 on 11/28/2017 Component/Insert Knee / [id number] Insurance Payer Benefit Plan / Subscriber ID Effective Phone Address T ype Group Dates BCBS [place] [id number] 2018-Prese [phone] [address] [id number] [address] [place] [address] MEDICARE MEDICARE [id number] 2012-Pres [phone] ATTN CLAI [place] Medicare ent 40 [address] [place] [address] Advance Directives For more information, please contact: [phone] Latest Code Status on File Code Status Date Activated Date Inactivated Comments Full Code 03/03/2021 3:38 PM 03/06/2021 6:26 PM All basic and advanced life-sustaining interventions are performed as oj ropriate Question Answer Comments Code status determined by: Discussion with patient/ legal de cision maker Care Teams In Home Aide Relationship Specialty Start Date End Date Mario Keith MD PCP - General Internal Medicine 11/28/17 [facility] [address] [place] [address]
--- OUTSIDE RECORDS SUMMARY | 2022-03-13 11:48 | XMS_ITS | Clinical Summary ---
:1955 Author Organization [facility] [place] [address] Care Team Providers Name Role Phone aMrio Keith MD Primary Care Provider Allergies Active [...] Christophe Vargas PA 01/11/2022 [address]phone Vivienne Crisostomo, ROAD GRADER OPERATOR CPAP M PABLO from Last 3 Months [...] 180.3 cm (5' 11) 07/23/2014 1:14 PM SUPPLIER DEVELOPMENT MANAGER Body Mass Index 40.03 07/23/2014 1:14 PM SUPPLIER DEVELOPMENT MANAGER Plan of Treatment Health Maintenance Due Date [...] Group MEDICARE PART A MEDICARE PART A [id number] 2013-Prese ATTN: CLAIMS - HB USE ONLY HB ONLY nt [address] [facility] [place] [address] MEDICARE PART B MEDICARE PART B [id number] 2012-Prese ATTN: CLAIMS - HB USE ONLY HB ONLY nt [address] [facility] [place] [address] MEDICARE - PB MEDICARE PB [id number] 2018-Presen ATTN : CLAIMS USE ONLY ONLY t [address] [facility] [place] [address] BLUE CROSS BLUE CROSS OF [id number] 2018-Presen [address] [place] [address] BLUE CROSS BLUE CROSS [id number] 2016-[place] [address] [address] [place] BLUE t [facility] ONLY [phone] Advance Directives Latest Code Status on File Code Status Date Activated Date Inactivated Comments Full Code 01/04/2013 5:51 PM 01/05/2013 5:36 PM Care Teams Intellectual Property Manager Relationship Specialty Start Date End Date Mario Keith MD PCP - General Family Practice 07/06/101999 [place], [place] [id number]
--- OUTSIDE RECORDS SUMMARY | 2022-03-13 11:49 | XMS_ITS | Encounter Summary ---
:1955 Author Organization [facility] Address [address] [place] [address] Care Team Providers Name Role Phone Unavailable Primary Care Provider Unavailable Reason for Visit Reason Onset Date Comments Pt. Information/instruction 10/27/2012 Other Encounter Details Date Type Department Care Team Description 10/27/2012 Telephone Surgery Clinic Gaby Hicks, Pt. Samaria WAITE Information/instructio Building [address] [facility] [address]; 1st Floor, Clinic [address] [place] [id number] [phone] Social History Tobacco Use Types Packs/Day Years [...] had surgery done with Dr White out [facility] in 2007. 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 Pt has since gained weight back and is wondering about getting the ring surgery done to help him lose weight again. Pt wondering if any of the physicians here will do the ring surgery Pls call pt back to answer questions [phone] Thanks Coordinator talked to patient. Informed patient [...]
--- OUTSIDE RECORDS SUMMARY | 2022-03-13 11:49 | XMS_ITS | Encounter Summary ---
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 - Symptoms to Report: thoughts of suicide, dial 911 - Lifestyle Adjustment: Do not use drugs or alcohol Psychiatry Follow-Up - Therapist: Terrie Rodríguez - Therapist Address: [address] [place] [address]. - Therapist Phone Number: - Therapist Appointment 01:00 Date/Time: Provider Information - Discharged From: [facility] - Unit: 30 - Unit - Method: [...] Avoid alcohol. Resources - Resources Crisis Intervention: [phone] or [phone] (TTY: 473.951.2570); call anytime for help. National [place] on Mental Illness (www.[place].apryl.org):: 864-665-1092 or 403-115-0457. Signatures BRITTNEE HART (Psychotherapist)[Signed 11:59] Authored: Summary of Progress and Discharge Plan, Psychiatry Follow-Up Mariann Sierra (RN)[Signed 11:45] Authored: Summary of Progress and Discharge Plan, Provider Information, Discharge Teaching Checklist, Resources documented in this encounter Plan of Treatment Not on filedocumented as of this encounter Visit Diagnoses Not on filedocumented in this encounter
--- OUTSIDE RECORDS SUMMARY | 2022-03-13 11:49 | XMS_ITS | Encounter Summary ---
:1955 Author Organization [facility] Address [address] [place] [address] Care Team Providers Name Role Phone Mario Keith MD Primary Care Provider Encounter Details Date Type Department Care Team Description 07/20/2020 Telephone [facility] [address] [place] [address] Social History Tobacco Use Types [...] call back if he changes his mind. E DELIVERY SUPERVISOR Telephone Encounter - Toni Aponte - 07/20/2020 3:53 PM CST Wero Moser, Pt had bypass 2007 (said at our system, but I don't see here or HE). He's heard that he can get a lap band on top of it... I explained the unlikeliness of that. But also that you might discuss a revision. bmi 40.4 OK to leaved detailed VM E DELIVERY SUPERVISOR documented in this encounter Plan of Treatment Not on filedocumented as of this encounter Visit Diagnoses Not on filedocumented in this encounter Care Teams Garnisher Relationship Specialty Start Date End Date Mario Keith MD PCP - General Internal Medicine 11/28/17 [facility] [address] [place] [address] documented as of this encounter
--- OUTSIDE RECORDS SUMMARY | 2022-03-13 11:49 | XMS_ITS | Encounter Summary ---
:1955 Author Organization [facility] Address [address] [place] [address] Care Team Providers Name Role Phone Unavailable Primary Care Provider Unavailable Encounter Details Date Type Department Care Team Description 03/05/2009 Historic Results [facility] [address] [facility] [place] [address] (Wo rk) Social History Tobacco Use Types [...]
--- OUTSIDE RECORDS SUMMARY | 2022-03-13 11:49 | XMS_ITS | Encounter Summary ---
:1955 Author Organization [place] Address [address] [place] [address] Care Team Providers Name Role Phone Mario Keith MD Primary Care Provider [phone] Reason for Referral Consultation (Routine) Specialty Diagnoses / Procedures Referred By Contact Refer red To Contact Senthil Zhao MD [address] [place] [address] Referral ID Status Reason Start Date Expiration Date Visits Requ ested Visits [facility]) Specialty Diagnoses / Procedures Referred By Contact Refer red To Contact Senthil Zhao MD [address] [place] [address] Referral ID Status Reason Start Date Expiration Date Visits Requ ested Visits Authorized [facility] Health Therapies & Aides (Routine) Specialty Diagnoses / Procedures Referred By Contact Refer red To Contact Senthil Zhao MD [address] [place] [address] Referral ID Status Reason Start Date Expiration Date Visits Requ ested Visits Authorized Reason for Visit Reason Comments One-sided Weakness Auth/Cert Specialty Diagnoses / Procedures Referred By Contact Refer red To Contact EMERGENCY MEDICINE Diagnoses Acute right-sided weakness Acute right-sided weakness Emergency Dept [address] [place] [address] Phone: Fax: Referral ID Status Reason Start Date Expiration Date Visits Requ ested Visits Authorized [id number] 1 1 Encounter Details Date Type Department Care Team Description 03/03/2021 - Emergency [facility] Deandre Alvarez Cla, MD [facility] [address] [place], [place] [id number] 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) (Primary Dx); 03/06/2021 [place] [address] Medical Sandeep Nunez DO [address] [place] [address] Acute right-sided weakness; Surgical Romaine Eng MD [address] [place] [address] JUSTIN (generalized anxiety disorder); [address] [facility] [place] [address] Social History Tobacco Use Types [...] Zhao MD - 03/06/2021 3:38 PM CDT [facility] Discharge Summary Hospitalist Date of Admission: [...] I, or a nurse practitioner or physician's placement assistant working with me, had a oglh-et-gxxf encounter that meets the physician ryml-zt-yahx encounter requirements with this patient on: 03/05/2021. [...] effort and are for medical reasons or worship services or infrequently or of short duration when for other reasons) because: Patient is bedbound due to: fall risk, unsteady gait. Based on the above findings. I certify that this patient is confined to the home and needs intermittent [facility] care, physical therapy and/or speech therapy. The patient is under my care, and susana initiated the establishment of the plan of care. This patient will be followed by a physician who will periodically review the plan of care. Physician/Provider to provide follow up care: Mario Keith Attending [facility] physician (the Medicare certified [place] provider): Senthil Zhao MD Physician Signature: See [...] next 24-48 hours, Please call them at [phone] documented in this encounter Medications at Time [...] EMG. Praful Gaytan MD (general neurology) pgr [phone] Senthil Zhao MD - 03/05/2021 2:35 PM CDT [facility] Hospitalist Progress Note Assessment & Plan [...] EXAM: MR CERVICAL SPINE W/O CONTRAST LOCATION: [facility] DATE/TIME: 03/05/2021 10:42 AM INDICATION: Cervical [...] Date: 03/06/2021 Discharge Disposition: Home Discharge Services: instrument/control technician/PT/OT PAWN SHOP KEEPER Discharge DME: N/A Discharge Transportation: family or friend will provide Private pay costs discussed: Not applicable Education Provided on the Discharge Plan: yes Persons Notified of Discharge Plans: PT Patient/Family in Agreement with the Plan: yes Handoff Referral Completed: Yes Additional Information: 03/05/21 1100 [facility] ([facility] [phone] fax [phone]) PT able to d.c home today Will [...] Adds Type of Visit Initial PT Evaluation Warhead Maintenance Specialist Warhead Maintenance Specialist Present no Language Danish Living Environment People in home alone Current [...] Living Environment Comments Pt. lives alone in [facility] with bedroom upstairs and railing on [...] alone Current Living Arrangements other (see comments) ([address] [place] [address]) Home Accessibility stairs to enter home;stairs within home Number of Stairs, Main Entrance 2 Stair Railings, Main Entrance railing on right side (ascending) Number of Stairs, Within Home, Primary greater than 10 stairs Stair Railings, Within Home, Primary railing on right side (ascending) Transportation Anticipated car, drives self;family or friend will provide Living Environment Comments Pt. lives alone in [place] with bedroom upstairs and railing on [...] of Daily Living BADL Assessment toileting Toileting Bradford Level (Toileting) supervision;set up;assist of 2;moderate assist [...] Needs Upon Discharge (OT) gait belt;raised toilet seat;engine emission technician;shower chair;tub bench;commode chair Risk & Benefits of [...] UE strength. Pt. lives alone in [facility] [place] home with 2 stairs to enter and 14 [...] from the original note were not included. [facility] Hospitalist Progress Note Admit 03/03/2021 9:44 AM Name: Jett Georges II Provider: Romaine Eng MD, [facility] Date of Service: 03/04/2021 Reason for Stay [...] ?? #Hypertension-blood pressure stable for now, resume LOOM REPAIRER lisinopril 20 mg, ?? #Anxiety-depression --Per pharmacy records he is on Zoloft daily, Seroquel 200 mg nightly, lorazepam as needed --Given his grogginess I will resume his Zoloft and LOOM REPAIRER Seroquel for now but hold off on [...] Holder PA-C - 03/03/2021 2:41 PM CDT [facility] Admission History and Physical Examination NAME: Jett [...] repeat #Hypertension-blood pressure stable for now, resume LOOM REPAIRER lisinopril 20 mg, #Anxiety-depression --Per pharmacy records he is on Zoloft daily, Seroquel 200 mg nightly, lorazepam as needed --Given his grogginess I will resume his Zoloft and LOOM REPAIRER Seroquel for now but hold off on [...] ARTHROPLASTY ; Surgeon: Joseph Ramesh MD; Location: [facility]; Service: Orthopedics ??? GASTRIC BYPASS ??? HERNIA [...] plaque. There is no stenosis or dissection. [place]: There is some mild calcific [...] -- TROPONIN <0.015 -- Carli Holder PA-C [facility] Medicine March 03, 2021 Securely message with the [employer] Console (learn more here) Text page via [employer] Paging/Directory Associated attestation - Sandeep Nunez DO [...] AM CDTAssociated Order(s): ORTHOPEDIC SURGERY IP CONSULT [facility] Orthopedic Consultation Jett Georges II Age: [age] [...] ARTHROPLASTY ; Surgeon: Joseph Ramesh MD; Location: [facility]; Service: Orthopedics ??? GASTRIC BYPASS ??? HERNIA [...] plaque. There is no stenosis or dissection. [place]: There is some mild calcific [...] EXAM: MR CERVICAL SPINE W/O CONTRAST LOCATION: [facility] DATE/TIME: 03/05/2021 10:42 AM INDICATION: Cervical [...] Negative Ketones Urine Negative Negative mg/dL Specific [place] Urine 1.017 1.003 - 1.035 Blood Urine [...] Range Hold Specimen JIC Extra Green Top ([place] Heparin) Tube Status: None Result Value Ref [...] recent exposure or clinical presentation suggests COVID-19. [facility] are certified under the [...] Rate 83 BPM Atrial Rate 83 BPM AL Interval 246 ms QRS Duration 122 ms QT 394 ms QTc 462 ms P [place] 69 degrees R AXIS -72 degrees T [place] 19 degrees Interpretation ECG Sinus rhythm with 1st degree A-V block with occasional Premature ventricular complexes Left anterior fascicular block Abnormal ECG No previous ECGs available Neurology IP Consult: General (non-stroke/non-ICU); Patient to be seen: Routine - within 24 hours; right arm weakness, palsy?; Push Bench Operator Helper may enter orders: Yes; Requesting provider? Hospitalist [...] ARTHROPLASTY ; Surgeon: Joseph Ramesh MD; Location: [facility]; Service: Orthopedics ??? GASTRIC BYPASS ??? HERNIA [...] symmetric movements. MOTOR: Tone is difficult to trade manager, pain or difficulty relaxing complicate the [...] without Contrast Praful Gaytan MD (general neurology) [facility] [phone] 1. Acute right-sided weakness Care Management / Social Work IP Consult Status: None () Narrative Sandhya Heath, TEST RIDER 03/04/2021 3:22 PM Care Management Initial Consult General Information Assessment completed with: Patient, Type of CM/SW Visit: Initial Assessment Primary Care Provider verified and updated as needed: Readmission within the last 30 days: no previous admission in last 30 days Reason for Consult: discharge planning Communication Assessment Patient's communication style: spoken language (Danish or Bilingual) Hearing Difficulty or Deaf: no [...] Gatherings with Friends and Family: ??? Attends Restoration Services: ??? Active Member of Clubs or [...] find to accept referral SW went to [employer] web site.. Called home care agencies but had to navigate through call person services SW was able to find [facility] [phone] . Requested PT/OT PAWN SHOP KEEPER support for pt. They could provide start of care on Saturday Will fax face sheet and H&P over today and final d.c orders tomorrow Pt stated he will call his son for a ride home tomorrow. 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 Hospitalist (if different from attending physician... Status: None () Narrative Jairo Buckley PA-C 03/05/2021 4:01 PM [facility] Neurosurgery Consultation Date of Admission: 03/03/2021 [...] up with further consultation recommendations. Jairo Howe [facility] Neurosurgery [address] [place] [address] Pager [phone] Code Status Full Code Reason for Consult [...] ARTHROPLASTY ; Surgeon: Joseph Ramesh MD; Location: [facility]; Service: Orthopedics ??? GASTRIC BYPASS ??? HERNIA [...] Status --------- ------ CBC with platelets and d...[[id number]] Abnormal Final result Please view results for these tests on the individual orders. Extra Tube ([place] Draw) Status: None Narrative The following orders were created for panel order Extra Tube ([place] Draw). Procedure Abnormality Status --------- ------ Extra Blue Top Tube[[id number]] Final result Extra Green Top ([place]...[[id number]] Final result Extra Purple Top Tube[[id number]] Final result Please view results for these [...] CDTAssociated Order(s): SPINE SURGERY ADULT IP CONSULT [facility] Neurosurgery Consultation Date of Admission: 03/03/2021 [...] with further consultation recommendations. Jairo Buckley PA-C [facility] Neurosurgery [place] [address] Pager [phone] Code Status Full Code Reason for Consult [...] ARTHROPLASTY ; Surgeon: Joseph Ramesh MD; Location: [facility]; Service: Orthopedics ??? GASTRIC BYPASS ??? HERNIA [...] personally see this patient today. Sandhya Heath, TEST RIDER - 03/04/2021 3:22 PM CDTAssociated Order(s): CARE MANAGEMENT / SOCIAL WORK IP CONSULT Care Management Initial Consult General Information Assessment completed with: Patient, Type of CM/SW Visit: Initial Assessment Primary Care Provider verified and updated as needed: Readmission within the last 30 days: no previous admission in last 30 days Reason for Consult: discharge planning Communication Assessment Patient's communication style: spoken language (Danish or Bilingual) Hearing Difficulty or Deaf: no [...] Gatherings with Friends and Family: ??? Attends Restoration Services: ??? Active Member of Clubs or [...] find to accept referral SW went to [employer] web site.. Called home care agencies but had to navigate through call person services SW was able to find [facility] [phone] . Requested PT/OT PAWN SHOP KEEPER support for pt. They could provide start [...] ARTHROPLASTY ; Surgeon: Joseph Ramesh MD; Location: [facility]; Service: Orthopedics ??? GASTRIC BYPASS ??? HERNIA [...] symmetric movements. MOTOR: Tone is difficult to trade manager, pain or difficulty relaxing complicate the [...] Contrast Praful Gaytan MD (general neurology) pgr [phone] 1. Acute right-sided weakness documented in this encounter ED Notes Bhavesh Lynn RN - 03/03/2021 12:16 PM CDT [facility] ED Nurse Handoff Report Jett Georges II is a 65 year old male ED Chief complaint: One-sided Weakness . ED Diagnosis: Final diagnoses: Acute right-sided weakness Allergies: Allergies Allergen Reactions ??? Zyban [Bupropion Hydrobromide] Hives Code Status: Full Code Activity level - Baseline/Home: Independent. Activity Level - Current: Assist X 1. Lift room needed:No. Bariatric: No Warhead Maintenance Specialist Needed: No Isolation: No. Infection: Not Applicable. [...] recent exposure or clinical presentation suggests COVID-19. [facility] are certified under the [...] Status --------- ------ CBC with platelets and d...[[id number]] Abnormal Final result Please view results for these tests on the individual orders. EXTRA TUBE Narrative: The following orders were created for panel order Extra Tube ([place] Draw). Procedure Abnormality Status --------- ------ Extra Blue Top Tube[[id number]] Final result Extra Green Top ([place]...[[id number]] Final result Extra Purple Top Tube[[id number]] Final result Please view results for these [...] Unable to fully extend the right wrist. Manager Sports strength 5/5 and symmetric bilaterally. Left upper [...] to prior, dated 11/28/2017. Rate 83 bpm. AL interval 246 ms. QRS duration 122 ms. [...] Status --------- ------ CBC with platelets and d...[[id number]] Abnormal Final result Please view results for these tests on the individual orders. EXTRA TUBE Narrative: The following orders were created for panel order Extra Tube ([place] Draw). Procedure Abnormality Status --------- ------ Extra Blue Top Tube[[id number]] Final result Extra Green Top ([place]...[[id number]] Final result Extra Purple Top Tube[[id number]] Final result Please view results for these [...] care of Dr. Nunez. Impression & Plan [facility] Diagnoses: The patient has stroke symptoms: ED [...] hypoglycemia (or hyperglycemia), head or spinal trauma, SEASONAL CUSTOMER SERVICE ASSOCIATE infection, Toxin ingestion and shock state (e.g. [...] goal(s). See goals on Care Plan in [facility] electronic health record for goal [...] UE strength. Pt. lives alone in [place] home with 2 stairs to enter and 14 [...] from the original note were not included. [facility] OUTPATIENT PHYSICAL THERAPY EVALUATION PLAN OF TREATMENT FOR OUTPATIENT REHABILITATION (COMPLETE FOR INITIAL CLAIMS ONLY) Patient's Last Name, First Name, M.I. Date of : 1955 Jett Georges Provider's Name [facility] Onset Date: 03/03/21 Start of Care Date: 03/04/2021 Type: _X_PT ___OT ___SLP Medical Diagnosis: R-sided weakness PT Diagnosis: Impaired fn mobility Visits from SOC: 1 _ Plan of Treatment/Functional Goals Planned Interventions: bed mobility training, balance training, patient/family education, stair training, strengthening, gait training, neuromuscular re- education, stretching, transfer training Goals: See Physical Therapy Goals on Care Plan in [facility] electronic health record. Therapy Frequency: Daily Predicted Duration of Therapy Intervention: 3 days _ I CERTIFY THE NEED FOR THESE SERVICES FURNISHED UNDER THIS PLAN OF TREATMENT AND WHILE UNDER MY CARE (Physician co-signature of this document indicates review and certification of the therapy plan). , Referring Physician: Sandeep Nunez, DO Initial Assessment See Physical Therapy evaluation dated in [facility] electronic health record. Associated attestation - Romaine Eng MD - 03/04/2021 6:08 PM CDT I CERTIFY THE NEED FOR THESE SERVICES FURNISHED UNDER THIS PLAN OF TREATMENT AND WHILE UNDER MY CARE (Physician co-signature of this document indicates review and certification of the therapy plan). Utilization Review - Nikki Gonzalez MD - 03/04/2021 12:10 PM CDT [facility] Admission Status; Secondary Review Determination Admission Date: [...] Sincerely, Nikki Gonzalez MD MPH Utilization Review [facility]. Plan of Care - Amelia Kiran [...] RN Pharmacy-Admission Medication History - Varinder Daniels [facility] - 03/03/2021 2:10 PM CDT Admission medication history interview status for this patient is complete. See [facility] admission navigator for allergy information, prior to admission medications and immunization status. Medication history interview done, indicate source(s): Patient Medication history resources (including written lists, pill bottles, clinic record):[facility]: [id number] [place], [place] - [address] [address] Changes made to LOOM REPAIRER medication list: Added: all meds Changed: trazodone 75 mg TID -> at bedtime Reported as Not Taking: none Removed: none Actions taken by pharmacist (provider contacted, etc):left sticky note for provider Additional medication history information: - Patient may have confused trazodone with tramadol and took about 10 tramadol tablets in total yesterday. - The current medication list was completed to the best of administrative underwriter's ability using available resources (e.g. [employer] [...] City/State/ZIP Code Phon e Number [place] [address] Care Lab [address] Lab (1st floor, no room number) [...] in clude each brachial plexus in the [id number]. JOHN HAWTHOREN MD SYSTEM ID: ??[id number] Narrative 03/06/2021 2:48 PM CDT MRI OF [...] in clude each brachial plexus in the gmzzp-px-kyzf. JOHN HAWTHORNE MD SYSTEM ID: [id number] Veronica Murrell PA-C IMG MRI ORDERABLES (ABNORMAL) [...] Address City/State/ZIP Code [place] [address] Care Lab [address] Lab (1st floor, no room number) [...] HANNAH - ENEDINA POCT Performing Organization Address City/[facility]/ZIP Code [place] [address] Care Lab [address] Lab (1st floor, no room number) [...] Address City/State/ZIP Code [place] [address] Care Lab [address] Lab (1st floor, no room number) [...] City/State/ZIP Code [place] [address] Care Lab [address] Lab [...] EXAM: MR CERVICAL SPINE W/O CONTRAST LOCATION: [facility] DATE/TIME: 03/05/2021 10:42 AM INDICATION: Cervical [...] EXAM: MR CERVICAL SPINE W/O CONTRAST LOCATION: [facility] DATE/TIME: 03/05/2021 10:42 AM INDICATION: Cervical [...] Unknown CDT AM CDT Sandeep Nunez DO [place] POCT Performing Organization Address City/[facility]/ZIP Code [place] [address] Care Lab [address] Lab (1st floor, no room number) [...] LAB - BEAKER POCT Performing Organization Address City/[facility]/ZIP Code [place] [address] Care Lab [address] Lab (1st floor, no room number) [...] LAB - BEAKER POCT Performing Organization Address City/[facility]/ZIP Code [place] [address] Care Lab [address] Lab (1st floor, no room number) [...] LAB - BEAKER POCT Performing Organization Address City/[facility]/ZIP Code [place] [address] Care Lab [address] Lab (1st floor, no room number) [...] City/State/ZIP Code [place] [address] Care Lab [address] Lab (1st floor, no room number) [...] City/State/ZIP Code Phon e Number [place] [address] Care [address] Lab (1st floor, no room number) [...] City/State/ZIP Code Phon e [place] [address] Care Lab [address] Lab (1st floor, no room number) (ABNORMAL) Basic metabolic panel (03/04/2021 8:02 AM CDT) [facility] Method Time Signature Sodium 132 (L) [...] ORDERABLES Performing Organization Address City/[facility]/ZIP [place] [address] Care [address] Lab (1st floor, no room number) [...] LAB - BEAKER POCT Performing Organization Address City/[facility]/ZIP Code [place] [address] Care Lab [address] Lab (1st floor, no room number) [...] LAB - BEAKER POCT Performing Organization Address City/[facility]/ZIP Code [place] [address] Care Lab [address] Lab (1st floor, no room number) [...] ORDERABLES Performing Organization Address City/[facility]/ZIP Code [place] [phone] Care Lab [address] Lab (1st floor, no room number) [...] ORDERABLES Performing Organization Address City/[facility]/ZIP Code [place] [address] Care Lab [address] Lab (1st floor, no room number) [...] Code Phon e Number [place] [address] Care Lab [address] Lab (1st floor, no room number) [...] LAB - BEAKER POCT Performing Organization Address City/[facility]/ZIP Code Phon e Number [place] [address] Care Lab [address] Lab (1st floor, no room number) [...] ORDERABLES Performing Organization Address City/[facility]/ZIP [facility] Phon e Number [place] [phone] Care Lab [address] Lab (1st floor, no room number) [...] ORDERABLES Performing Organization Address City/[facility]/ZIP Code [place] [address] Care Lab [address] Lab (1st floor, no room number) [...] ORDERABLES Performing Organization Address City/[facility]/ZIP Code [place] [address] Care Lab [address] Lab (1st floor, no room number) [...] exposure or clinical presentation sugges ts COVID-19. ??[facility] are certified under the Clinical Laborat ory Improvement Amendments of 1988 (CLIA-88) as qualified to perform moderate and/or high complexity laboratory testing. Deandre Alvarez MD LAB - MICRO GENERAL ORDERABL ES Performing Organization Address City/State/ZIP Code [place] [phone] Care Lab [address] [facility] Lab (1st floor, no room number) (ABNORMAL) UA with Microscopic reflex to Culture (03/03/2021 11:03 AM CDT) [facility] Method Time Signature Color Urine Light Colorless, 03/03/2021 LABORATORY Yellow Straw, 11:28 AM Light CDT Yellow, Yellow Appearance Urine Clear Clear 03/03/2021 LABORATOR Y 11:28 AM CDT Glucose Urine 150 (A) Negative 03/03/2021 LABORATORY mg/dL 11:28 AM CDT Bilirubin Urine Negative Negative 03/03/2021 LABORATORY 11:28 AM CDT Ketones Urine Negative Negative 03/03/2021 LABORATORY mg/dL 11:28 AM CDT Specific [place] 1.017 1.003 - 03/03/2021 LABORATOR Y Urine [...] Address City/State/ZIP Code [place] [phone] Care Lab [address] Lab (1st floor, no room number) [...] might be helpful in further evaluation. JUAN LELA MD SYSTEM ID: [id number] Deandre Alvarez MD [...] plaque. There is no stenosis or dissection. [place]: There is some mild tracee [...] plaque. There is no stenosis or dissection. [place]: There is some mild tracee [...] RESULTS Atrial Rate 83 BPM RADIOLOGY RESULTS AL Interval 246 ms RADIOLOGY RESULTS QRS Duration 122 ms RADIOLOGY RESULTS QT 394 ms RADIOLOGY RESULTS QTc 462 ms RADIOLOGY RESULTS P [place] 69 degrees RADIOLOGY RESULTS R AXIS -72 degrees RADIOLOGY RESULTS T [place] 19 degrees RADIOLOGY RESULTS Interpretation Sinus rhythm [...] (ABNORMAL) Lipid Profile (03/03/2021 9:58 AM CDT) [facility] Method Time Signature Cholesterol 152 [...] Organization Address City/State/[place] [phone] Care Lab [address] Lab (1st floor, no room number) [...] Organization Address City/State/[place] [address] Care Lab [address] Lab (1st floor, no room number) [...] Address City/State/ZIP Code Phon [place] [address] Care [address] Lab (1st floor, no room number) [...] ORDERABLES Performing Organization Address City/[facility]/ZIP [place] [address] Care Lab [address] Lab (1st floor, no room number) [...] Organization Address City/State/[place] [address] Care Lab [address] Lab (1st floor, no room number) Extra Green Top ([place] Heparin) Tube (03/03/2021 9:58 AM CDT) P [...] ORDERABLES Performing Organization Address City/[facility]/ZIP Code [facility] [place] [address] Care Lab [address] Lab (1st floor, no room number) [...] Organization Address City/State/ZIP [place] [address] Care Lab [address] Lab (1st floor, no room number) (ABNORMAL) CBC with platelets and differential (03/03/2021 9:58 AM CDT) [facility] Method Time Signature WBC Count [...] ORDERABLES Performing Organization Address City/[facility]/ZIP Code Ph[place] [phone] Care Lab [address] Lab (1st floor, no room number) [...] ORDERABLES Performing Organization Address City/[facility]/ZIP Code Ph[place] [phone] Care Lab [address] Lab (1st floor, no room number) [...] ORDERABLES Performing Organization Address City/[facility]/ZIP Code [place] [address] Care Lab [address] Lab (1st floor, no room number) [...] ORDERABLES Performing Organization Address City/[facility]/ZIP Code [place] [address] Care Lab [address] Lab (1st floor, no room number) [...] Address City/State/ZIP Code [place] [address] Care Lab [address] Lab (1st floor, no room number) [...] City/State/ZIP Code Ph[place] [address] Care [address] Lab [...] 1914, Administer intramuscular if an intravenous ro [place] is not available and notify provider when [...] 1914, Administer intramuscular if an intravenous ro [place] is not available and notify provider when [...] stools.
documented in this encounter Care Teams Junior Systems Administrator Relationship Specialty Start Date End Date Mario Keith MD PCP - General Internal Medicine 11/28/[address] [address] documented as of this encounter
--- OUTSIDE RECORDS SUMMARY | 2022-03-13 11:49 | XMS_ITS | Encounter Summary ---
:1955 Author Organization [place] Address [address] [place] [address] Care Team Providers Name Role Phone Unavailable Primary Care Provider Unavailable Encounter Details Date Type Department Care Team Description 03/07/2009 Historic Notes INTERFACED REPORT Interface, Transcript onMD Social History Tobacco Use Types Packs/Day Years Used Date Smoking Tobacco: Never Assessed Sex Assigned at Date Recorded Not on file documented as of this encounter Progress Notes Interface, Hair Dresser - 08/05/2010 5:35 PM CDT General Information - Has NOT attended OT 13:00 as of: Plan - Plan: Continue to invite to groups to assess. ESTER Nicholson (MILLER)[Signed 12:38] Authored: General Information, Plan documented in this encounter Plan of Treatment Not on filedocumented as of this encounter Visit Diagnoses Not on filedocumented in this encounter
--- OUTSIDE RECORDS SUMMARY | 2022-03-13 11:49 | XMS_ITS | Encounter Summary ---
:1955 Author Organization [place] Address [address] [place] [address] Care Team Providers Name Role Phone Unavailable Primary Care Provider Unavailable Encounter Details Date Type Department Care Team Description 03/04/2009 Historic Notes INTERFACED REPORT David Minaya MD [facility] [address] [place] [place] [address] (Wo rk) Social History Tobacco Use Types Packs/Day Years Used Date Smoking Tobacco: Never Assessed Sex Assigned at Date Recorded Not on file documented as of this encounter Progress Notes Graciela Minaya MD - 08/05/2010 5:44 PM CDT ATTENDING PHYSICIAN - Attending Note: I examined the patient and discussed the case with the physician speech and language assistant student who is severing as a [...]
--- OUTSIDE RECORDS SUMMARY | 2022-03-13 11:49 | XMS_ITS | Encounter Summary ---
:1955 Author Organization [place] Address [address] [place] [address] Care Team Providers Name Role Phone Unavailable Primary Care Provider Unavailable Encounter Details Date Type Department Care Team Description 11/12/2007 Historic Notes INTERFACED REPORT Interface, Transcript onMD Social History Tobacco Use Types Packs/Day Years Used Date Smoking Tobacco: Never Assessed Sex Assigned at Date Recorded Not on file documented as of this encounter Progress Notes Interface, Continuous Mining Machine Coal Miner - 08/06/2010 8:24 PM CDT BARIATRIC PROGRESS [...]
--- OUTSIDE RECORDS SUMMARY | 2022-03-13 11:49 | XMS_ITS | Encounter Summary ---
:1955 Author Organization [place] Address [address] [place] [address] Care Team Providers Name Role Phone Unavailable Primary Care Provider Unavailable Encounter Details Date Type Department Care Team Description 03/05/2009 Historic Notes INTERFACED REPORT David Minaya MD [facility] [address] [facility] [place] [address] (Wo rk) Social History Tobacco [...]
--- OUTSIDE RECORDS SUMMARY | 2022-03-13 11:49 | XMS_ITS | Encounter Summary ---
:1955 Author Organization [place] Address [address] [place] [address]. [place] [address] Care Team Providers Name Role Phone Mario Keith MD Primary Care Provider [phone] Encounter Details Date Type Department Care Team Description 11/28/2017 [facility] - [facility] Ann [facility]ira [facility] [address] [place] [address] [place] [address] [address] [facility] N [phone] [facility] [address] [place], [place] [address] Social History Tobacco Use Types [...] on filedocumented in this encounter Care Teams Oil Field Equipment Mechanic Supervisor Relationship Specialty Start Date End Date Mario Keith MD PCP - General Internal Medicine 11/28/17 [facility] [address] [place] [address] documented as of this encounter
--- OUTSIDE RECORDS SUMMARY | 2022-03-13 11:49 | XMS_ITS | Encounter Summary ---
:1955 Author Organization [place] Address [address] [place] [address] Care Team Providers Name Role Phone Unavailable Primary Care Provider Unavailable Encounter Details Date Type Department Care Team Description 03/07/2009 Historic Notes INTERFACED REPORT Blas Cates DO [facility] [address] [facility] [address] [place] [address] (Wo rk) Social History Tobacco Use Types Packs/Day Years Used Date Smoking Tobacco: Never Assessed Sex Assigned at Date Recorded Not on file documented as of this encounter Progress Notes Interface, Mud Tank Operator - 08/05/2010 5:36 PM CDT Problem List [...]
--- OUTSIDE RECORDS SUMMARY | 2022-03-13 11:49 | XMS_ITS | Encounter Summary ---
:1955 Author Organization [place] Address [address] [place] [address] Care Team Providers Name Role Phone Unavailable Primary Care Provider Unavailable Encounter Details Date Type Department Care Team Description 03/08/2009 Historic Results [facility] [address] [place] [address], [address] [place] [address] (Wo rk) Social History Tobacco Use Types [...]
--- OUTSIDE RECORDS SUMMARY | 2022-03-13 11:49 | XMS_ITS | Encounter Summary ---
:1955 Author Organization [place] Address [address] [place] [address] Care Team Providers Name Role Phone Unavailable Primary Care Provider Unavailable Reason for Visit Reason Onset Date Comments Abstract 05/28/2017 Encounter Details Date Type Department Care Team Description 05/28/2017 Documentation Only [facility] Erica Rodriguez bstract Surgical Weight Loss Paras Be [address] [place] [address] [place] [address] [phone] Social History Tobacco Use Types Packs/Day Years Used Date Smoking Tobacco: Never Assessed Sex Assigned at Date Recorded Not on file documented as of this encounter Plan of Treatment Not on filedocumented as of this encounter Visit Diagnoses Not on filedocumented in this encounter
--- OUTSIDE RECORDS SUMMARY | 2022-03-13 11:49 | XMS_ITS | Encounter Summary ---
:1955 Author Organization [place] Address [address] [place] [address] Care Team Providers Name Role Phone Mario Keith MD Primary Care Provider [phone] Encounter Details Date Type Department Care Team Description 11/27/[facility] [address] [place] [address] [place], [place] [phone] [address] Social History Tobacco Use Types Packs/Day Years [...] sitting Prep: ChloraPrep Patient monitoring: heart rate, diagnostic cardiac sonographer, continuous pulse ox and blood pressure Approach: [...] pressure, heart rate, continuous pulse oximetry and diagnostic cardiac sonographer Laterality: right Injection technique: ultrasound guided Ultrasound [...] pressure, heart rate, continuous pulse oximetry and diagnostic cardiac sonographer Laterality: left Injection technique: ultrasound guided Ultrasound [...] on filedocumented in this encounter Care Teams Pastoral Assistant Relationship Specialty Start Date End Date Mario Keith MD PCP - General Internal Medicine 11/28/17 [facility] [address] [place] [address] documented as of this encounter
--- OUTSIDE RECORDS SUMMARY | 2022-03-13 11:49 | XMS_ITS | Encounter Summary ---
:1955 Author Organization [place] Address [address] [place] [address] Care Team Providers Name Role Phone Unavailable Primary Care Provider Unavailable Reason for Visit Reason Onset Date Comments Clinic Care Coordination - Initial 02/27/2016 Encounter Details Date Type Department Care Team Description 02/27/2016 Telephone General Surgery Gaby Sanford, Clinic Care [facility] RN Coordination - Initial 4th Floor [address] [address] [place], [place] [phone] (Wo rk) Social History Tobacco Use Types Packs/Day Years Used Date Smoking Tobacco: Never Assessed Sex Assigned at Date Recorded Not on file documented as of this encounter Miscellaneous Notes Telephone Encounter - Gaby Sanford RN - 02/27/2016 3:25 PM CDT Referral from [employer] website. Patient has history of RYGB, would not be a candidate for the intragastric balloon. Encourage patient to set up appt for medical weight management. Contact information given. documented in this encounter Plan of Treatment Not on filedocumented as of this encounter Visit Diagnoses Not on filedocumented in this encounter
--- OUTSIDE RECORDS SUMMARY | 2022-03-13 11:49 | XMS_ITS | Encounter Summary ---
:1955 Author Organization [place] Address [facility] [place] [address] Care Team Providers Name Role Phone Mario Keith MD Primary Care Provider [phone] Encounter Details Date Type Department Care Team Description 11/28/2017 - Hospital Encounter [facility] Breien, Prim keya osteoarthritis 11/29/2017 [facility], [address] [facility] ORTHOPAEDICS [place], [place] 280 [facility] [address] [address] [address] [place], [place] [id number] Social History Tobacco Use Types Packs/Day Years [...] at discharge: Leandro Curiel Home Medication Instructions JESUSITA:[id number] Printed on:11/29/17 1430 Medication Information acetaminophen (TYLENOL) [...] with oral pain medication Marion Romano PA-C [facility] Maria E Russo MD - 11/29/2017 [...] spent 35 min Maria E Russo MD. [facility] medicine service Selam Overton RT - 11/28/2017 3:13 PM CDT 11/28/17 1512 NPPV Other SpO2 96 % CPAP CPAP Pt. Owned Device Yes;Clean;Functional (does not bleed in oxygen or use humidity, home unit ) CPAP Pressure (cmH2O) (home settings ) CPAP O2 (L/min or FiO2) 21 Chaz Colindres [facility] - 11/28/2017 8:08 AM CDT Pharmacy Note - Admission Medication History Pertinent Provider Information: N/A Prior To Admission (BREAKER BOSS) med list completed and updated in EMR. BREAKER BOSS Med List Medication Sig Note Last Dose [...] 50mg Information source(s): Patient, [facility] Patient was asked about OTC/herbal products specifically. BREAKER BOSS med list reflects this. Based on the pharmacist???s assessment, the BREAKER BOSS med list information appears reliable Allergies were [...] - for htn, dm2 Leandro Curiel, 1955, [facility] Prd Osteoarthritis of knee [M17.10] PCP: Mario Keith MD, Code status: Full Code Extended Emergency Contact Information Primary Emergency Contact: Alisosn Curiel [facility] Relation: [id number] Secondary Emergency Contact: Ervin Conner [facility] Relation: Child Assessment and Plan Essential [...] spent 70 min Maria E Russo MD. [facility] medicine service. documented in this encounter Miscellaneous Notes Op Note - Jennifer Arenas MD - 11/28/2017 11:48 AM CDT Operative Report PATIENT: Leandro Curiel DATE OF SURGERY: 11/28/2017 SURGEON Jennifer Arenas MD. BIOLOGICAL SCIENCES INSTRUCTOR Joe Strickland PA-C (Expert AUDREY assist was [...] knee with increasing disability. X-rays have shown [id number] degenerative change in the medial compartment. Has [...] Organization Address City/State/ZIP Code Phon e Number [facility] POCT RESULTS [address] [employer] [facility] N [address] Glucose by meter POCT (11/29/2017 7:03 AM CDT) athologist Signature GLUCOSE BY 116 mg/dL 11/29/2017 [facility] METER POCT 7:03 AM CDT [facility] POCT RESULTS Comment: Reference Ranges [...] Organization Address City/State/ZIP Code Phon e Number [facility] POCT RESULTS 1924 [facility] N [address] Hemoglobin A1c (11/29/2017 6:17 AM CDT) P athologist Signature Hemoglobin A1C 6.0 4.2 - 6.1 11/29/2017 HEALTH % 3:11 PM CDT [facility] Specimen Anatomical Collection Method / Collection Time Recei karin Time (Source) Location / Volume Laterality Blood specimen Venipuncture / 11/29/2017 6:17 11/30/19 18 9:36 (specimen) Unknown AM CDT AM CDT Maria E Russo MD LAB - BLOOD ORDERABLES Performing Organization Address City/State/ZIP Code Phon [place] [address] [address] [facility] (ABNORMAL) CBC with platelets (11/29/2017 6:17 AM CDT) Patholo gist Method Time Signature WBC 7.7 4.0 - 11.0 11/29/2017 [facility] thou/uL 6:27 AM CDT [facility] RBC Count 3.65 (L) 4.40 - 11/29/2017 HEALTH 6.20 6:27 AM CDT [facility] mill/uL [facility] Hemoglobin 10.3 (L) 14.0 - 11/29/2017 HEALTH 18.0 g/dL 6:27 AM T [facility] Hematocrit 30.9 (L) 40.0 - 11/29/2017 HEALTH 54.0 % 6:27 AM CDT [facility] MCV 85 80 - 100 11/29/2017 HEALTH fL 6:27 AM CDT [facility] MCH 28.2 27.0 - 11/29/2017 HEALTH 34.0 pg 6:27 AM CDT [facility] MCHC 33.3 32.0 - 11/29/2017 HEALTH 36.0 g/dL 6:27 AM T [facility] RDW 13.3 11.0 - 11/29/2017 HEALTH 14.5 % 6:27 AM T [facility] Platelet Count 177 140 - 440 11/29/2017 [facility] thou/uL 6:27 AM T [facility] Mean Platelet 9.8 8.5 - 12.5 11/29/2017 HEALTH Volume fL 6:27 AM T [facility] Specimen Anatomical Collection Method / Collection Time Recei karin Time (Source) Location / Volume Laterality Blood specimen Venipuncture / 11/29/2017 6:17 11/30/19 18 6:22 (specimen) Unknown AM CDT AM CDT Maria E Russo MD LAB - BLOOD ORDERABLES Performing Organization Address City/State/ZIP Code Phon e Number [facility] [place] [address] Lab Daniel Howe [address] [place] [address] LABORATORY (ABNORMAL) Basic metabolic panel (11/29/2017 6:17 AM CDT) Analysis Performed At Patho logist Time Signature Sodium 134 (L) 136 - 145 11/29/2017 HEALTH mmol/L 6:42 AM T [facility] Potassium 4.5 3.5 - 5.0 11/29/2017 HEALTH mmol/L 6:42 AM T [facility] Chloride 99 98 - 107 11/29/2017 HEALTH mmol/L 6:42 AM T [facility] Carbon Dioxide 27 22 - 31 11/29/2017 HEALTH (CO2) mmol/L 6:42 AM T [facility] Anion Gap 8 5 - 18 11/29/2017 HEALTH mmol/L 6:42 AM T [facility] Glucose 122 70 - 125 11/29/2017 HEALTH mg/dL 6:42 AM T [facility] Calcium 8.8 8.5 - 10.5 11/29/2017 HEALTH mg/dL 6:42 AM T [facility] Urea Nitrogen 7 (L) 8 - 22 11/29/2017 HEALTH mg/dL 6:42 AM T [facility] Creatinine 0.78 0.70 - 11/29/2017 HEALTH 1.30 mg/dL 6:42 AM T [facility] GFR Estimate If >60 >60 11/29/2017 HEALTH Black mL/min/1.7 6:42 AM T [address] LABORATORY GFR Estimate >60 >60 11/29/2017 HEALTH mL/min/1.7 6:[address] LABORATORY Specimen Anatomical Collection Method / Collection Time Recei karin Time (Source) Location / Volume Laterality Blood specimen Venipuncture / 11/29/2017 6:17 11/30/19 18 6:22 (specimen) Unknown AM CDT AM CDT Narrative [facility] - 11/29/2017 6:42 AM CDT Fasting Glucose reference range is 70-99 mg/dL per [place] [employer] (ADA) chay dela cruz. Maria E Russo MD LAB - BLOOD ORDERABLES Performing Organization Address City/State/ZIP Code Phon e Number [facility] [place] [address] [facility] [address] [facility] [address] [address] [facility] [address] [address], [facility] Glucose by meter POCT (11/28/2017 9:09 PM CDT) athologist Signature GLUCOSE BY 96 mg/dL 11/28/2017 [facility] METER POCT 9:09 PM CDT HOSPITAL POCT [...] Organization Address City/State/ZIP Code Phon e Number [facility] POCT RESULTS [address] N [address] Glucose by meter POCT (11/28/2017 4:59 PM CDT) athologist Signature GLUCOSE BY 105 mg/dL 11/28/2017 [facility] METER POCT 4:59 PM CDT [...] Organization Address City/State/ZIP Code Phon e Number [facility] POCT RESULTS [address] [place] [address] Glucose by meter POCT (11/28/2017 11:53 AM CDT) athologist Signature GLUCOSE BY 107 mg/dL 11/28/2017 [facility] METER POCT 11:53 AM CDT [...] Organization Address City/State/ZIP Code Phon e Number [facility] POCT RESULTS 1924 [facility] N [address] (ABNORMAL) CBC with platelets (11/28/2017 7:46 AM CDT) [facility] gist Method Time Signature WBC 6.6 4.0 - 11.0 11/28/2017 HEALTH thou/uL 7:52 AM CDT [facility] RBC Count 3.84 (L) 4.40 - 11/28/2017 HEALTH 6.20 7:52 AM CDT [facility] mill/uL [facility] Hemoglobin 10.9 (L) 14.0 - 11/28/2017 HEALTH 18.0 g/dL 7:52 AM CDT [facility] Hematocrit 32.4 (L) 40.0 - 11/28/2017 HEALTH 54.0 % 7:52 AM CDT [facility] MCV 84 80 - 100 11/28/2017 HEALTH fL 7:52 AM CDT [facility] MCH 28.4 27.0 - 11/28/2017 HEALTH 34.0 pg 7:52 AM CDT [facility] MCHC 33.6 32.0 - 11/28/2017 HEALTH 36.0 g/dL 7:52 AM CDT [facility] RDW 13.5 11.0 - 11/28/2017 HEALTH 14.5 % 7:52 AM CDT [facility] Platelet Count 221 140 - 440 11/28/2017 HEALTH thou/uL 7:52 AM CDT [facility] Mean Platelet 9.9 8.5 - 12.5 11/28/2017 [facility] Volume fL 7:52 AM CDT [facility] Specimen Anatomical Collection Method / Collection Time Recei karin Time (Source) Location / Volume Laterality Blood specimen Venipuncture / 11/28/2017 7:46 11/29/19 18 7:50 (specimen) Unknown AM CDT AM CDT Joe Strickland PA-C LAB - BLOOD ORDERABLES Performing Organization Address City/State/ZIP Code Phon e Number [facility] [place] [address] [address] [place], [place] [address] LABORATORY EXTRA GREEN TOP [...] Signature GLUCOSE BY 106 mg/dL 11/28/2017 [facility] METER POCT 7:45 AM CDT [...] Organization Address City/State/ZIP Code Phon e Number [facility] POCT RESULTS 1924 [facility] N [address] LAB RESULT - HIM SCAN (11/28/2017) Narrative [...] leg documented in this encounter Care Teams Safety And Security Officer Relationship Specialty Start Date End Date Mario Keith MD PCP - General Internal Medicine 11/28/17 [facility] [address] [place] [address] documented as of this encounter
--- OUTSIDE RECORDS SUMMARY | 2022-03-13 11:49 | XMS_ITS | Encounter Summary ---
:1955 Author Organization [place] Address [address] [place] [address] Care Team Providers Name Role Phone Unavailable Primary Care Provider Unavailable Encounter Details Date Type Department Care Team Description 03/03/2009 Discharge Summary [facility] Blas Cates, (Medicinal Chemist) [facility] [address] [facility] [place] [address] (Wo rk) Social History Tobacco Use Types Packs/Day Years Used Date Smoking Tobacco: Never Assessed Sex Assigned at Date Recorded Not on file documented as of this encounter Progress Notes Interface, Medicinal Chemist - 03/30/2009 10:58 PM METAL STAMPER FINAL DISCHARGE DIAGNOSES: AXIS I: 1. Major [...] DO MT: SONYA Name: JETT GEORGES Account: [id number] : 1955 Admit Date: Discharge Date: 03/08/2009 Document: [id number] L STAMPER documented in this encounter Plan of Treatment Not on filedocumented as of this encounter Visit Diagnoses Not on filedocumented in this encounter
--- OUTSIDE RECORDS SUMMARY | 2022-03-13 11:49 | XMS_ITS | Encounter Summary ---
:1955 Author Organization [place] Address [facility] [place] [address] Care Team Providers Name Role Phone Mario Keith MD Primary Care Provider Encounter Details Date Type Department Care Team Description 06/20/2012 Abstract [facility] Weight MichaelErica lozano, Management Clinic Ed lexis PA-C [address] [facility] [address] [place] [address] [place] [address] [phone] Social History Tobacco Use Types Packs/Day Years Used Date Smoking Tobacco: Never Assessed Sex Assigned at Date Recorded Not on file documented as of this encounter Plan of Treatment Not on filedocumented as of this encounter Visit Diagnoses Not on filedocumented in this encounter Care Teams Copy Director Relationship Specialty Start Date End Date Mario Keith MD PCP - General Internal Medicine 11/28/17 [facility] [address] [place] [address] documented as of this encounter
--- OUTSIDE RECORDS SUMMARY | 2022-03-13 11:49 | XMS_ITS | Encounter Summary ---
:1955 Author Organization [place] Address [address] [place] [address] Care Team Providers Name Role Phone Unavailable Primary Care Provider Unavailable Encounter Details Date Type Department Care Team Description 03/07/2009 Historic Results [facility] [address] [place] [address], [address] [place] [address] (Wo rk) Social History Tobacco Use Types [...]
--- OUTSIDE RECORDS SUMMARY | 2022-03-13 11:49 | XMS_ITS | Encounter Summary ---
:1955 Author Organization [place] Address [address] [place] [address] Care Team Providers Name Role Phone Unavailable Primary Care Provider Unavailable Encounter Details Date Type Department Care Team Description 10/22/2007 Historic Notes INTERFACED REPORT Interface, Transcript on, Social History Tobacco Use Types Packs/Day Years Used Date Smoking Tobacco: Never Assessed Sex Assigned at Date Recorded Not on file documented as of this encounter Progress Notes Interface, Inside Sales Recruiter - 08/06/2010 9:23 PM CDT Discharge Planning - Discharge From: [facility] - Patient Care Unit: Station [...] Dr. White call: - Phone number of [facility] [phone] patient should call: Other Discharge Education, Materials, [...] Materials, and Instructions, Follow Up Care Interface, Inside Sales Recruiter - 08/06/2010 9:23 PM CDT BARIATRIC SURGERY [...]
--- OUTSIDE RECORDS SUMMARY | 2022-03-13 11:49 | XMS_ITS | Encounter Summary ---
:1955 Author Organization [place] Address [address] [place] [address] Care Team Providers Name Role Phone Unavailable Primary Care Provider Unavailable Encounter Details Date Type Department Care Team Description 03/06/2009 Historic Results [facility] [address] [facility], [address] [place] [address] (Wo rk) Social History Tobacco Use Types [...]
--- OUTSIDE RECORDS SUMMARY | 2022-03-13 11:49 | XMS_ITS | Encounter Summary ---
:1955 Author Organization [place] Address [address] [place] [address] Care Team Providers Name Role Phone Unavailable Primary Care Provider Unavailable Encounter Details Date Type Department Care Team Description 03/03/2009 Historic Ticket Scheduler [facility] Stewart DO [facility] [address] [facility], [address] [place] [address] (Wo rk) Social History Tobacco Use Types Packs/Day Years Used Date Smoking Tobacco: Never Assessed Sex Assigned at Date Recorded Not on file documented as of this encounter Progress Notes Interface, Ticket Scheduler - 04/24/2011 7:16 AM HVAC MANAGER FINAL CHIEF COMPLAINT: My family was concerned about me. HISTORY OF PRESENT ILLNESS: Jett Georges is a 53-year-old white male who presented to [facility], [place], secondary to increased depression. The patient also states that he was hoping to come into the hospital so he could get on disability. Patient does report a 3-year history of depression and anxiety. He states that it all started when he stopped smoking. He states that he recently talked to a forestry hunter and the forestry hunter has convinced him that it was all [...] patient states that he grew up in [place], [place]. He did graduate from high school. [...] coordination are all within normal limits. DIAGNOSES: Forman I: Major depressive disorder, recurrent, severe without psychotic features. Benzodiazepine dependency and possible alcohol abuse. Forman II: Deferred. Forman III: As per Internal Medicine. Forman IV: Poor insight into his mental health issues. Forman V: GAF: 40. PLAN AND RECOMMENDATIONS: At this time will adjust his antidepressant medications. Will take him off his Ativan with a phenobarbital taper. Will use Seroquel to help control his anxiety. Will get the patient connected with outpatient psychiatry and therapy. Electronically signed on 03/30/2009 22:52 by BLAS CATES DO MT: niecy Name: JETT GEORGES Account: [id number] : 1955 Admitted: [id number] Document: [id number] MANAGER documented in this encounter Plan of Treatment Not on filedocumented as of this encounter Visit Diagnoses Not on filedocumented in this encounter
--- OUTSIDE RECORDS SUMMARY | 2022-03-13 11:49 | XMS_ITS | Encounter Summary ---
:1955 Author Organization [place] Address [address] [place] [address] Care Team Providers Name Role Phone Unavailable Primary Care Provider Unavailable Encounter Details Date Type Department Care Team Description 03/04/[address] [facility] [address] [address] (Wo rk) Social History Tobacco [...] extremities intact grossly in all 4 extremities, auditor medical claims is 5/5 bilaterally. LABORATORY DATA: His comprehensive metabolic battery was normal with the exception of glucose whichis elevated to 210. His TSH was 2.8. His GGT was 48. Records from [facility] indicated his CBC was normal, [...] STUDENT MT: dougie Name: JETT GEORGES Account: [id number] : 1955 Consult Date: 03/04/2009 Document: [id number] cc: Shukri Becker DO documented in this encounter Plan of Treatment Not on filedocumented as of this encounter Visit Diagnoses Not on filedocumented in this encounter
--- OUTSIDE RECORDS SUMMARY | 2022-03-13 11:49 | XMS_ITS | Encounter Summary ---
:1955 Author Organization [place] Address [address] [place] [address] Care Team Providers Name Role Phone Unavailable Primary Care Provider Unavailable Encounter Details Date Type Department Care Team Description 03/04/2009 Historic Notes INTERFACED REPORT Interface, Transcript on, Social History Tobacco Use Types Packs/Day Years Used Date Smoking Tobacco: Never Assessed Sex Assigned at Date Recorded Not on file documented as of this encounter Progress Notes Interface, Security Dispatcher - 08/05/2010 5:43 PM CDT General Information - Has NOT attended OT 14:00 as of: Plan - Plan: Encourage attendance and participation. ALISHA Vieyra (OTR)[Signed 15:20] Authored: General Information, Plan documented in this encounter Plan of Treatment Not on filedocumented as of this encounter Visit Diagnoses Not on filedocumented in this encounter
--- OUTSIDE RECORDS SUMMARY | 2022-03-13 11:49 | XMS_ITS | Encounter Summary ---
:1955 Author Organization [place] Address [address] [place] [address] Care Team Providers Name Role Phone Unavailable Primary Care Provider Unavailable Encounter Details Date Type Department Care Team Description 03/03/2009 Historic Notes INTERFACED REPORT Interface, Transcript on, Social History Tobacco Use Types Packs/Day Years Used Date Smoking Tobacco: Never Assessed Sex Assigned at Date Recorded Not on file documented as of this encounter Progress Notes Interface, Commercial Accountant - 08/05/2010 5:47 PM CDT General Information [...] - Second Staff (name) Bud Ruano - personnel quality assurance auditor #1: Leandro Curiel - Relationship to Father patient #1: - Phone 1: [phone] - Patient's spoken language; Mozambican or Bilingual communication style Advance Directive - [...] few days Hospitalization - Primary Care Mario Kelly--[facility] Physician - Do you have [...] - Do you have yes, 7 yo --non-halfway parent but close to responsibility for his [...]
--- OUTSIDE RECORDS SUMMARY | 2022-03-13 11:49 | XMS_ITS | Encounter Summary ---
:1955 Author Organization [place] Address [address] [place] [address] Care Team Providers Name Role Phone Unavailable Primary Care Provider Unavailable Encounter Details Date Type Department Care Team Description 03/07/2009 Historic Notes INTERFACED REPORT David Minaya MD [facility] [address] [place] [address] (Wo rk) Social History Tobacco [...]
--- OUTSIDE RECORDS SUMMARY | 2022-03-13 11:49 | XMS_ITS | Encounter Summary ---
:1955 Author Organization [place] Address [address] [facility] [place] [address] Care Team Providers Name Role Phone Unavailable Primary Care Provider Unavailable Reason for Visit Reason Onset Date Comments Patient Request 10/23/2012 Encounter Details Date Type Department Care Team Description 10/23/[address] [facility] Weight Alireza White MD Patient Request Management Clinic Ed lexis [address] [place] [place] [place] [address] [address] [place] [address] [phone] Social History Tobacco Use Types Packs/Day Years [...]
--- OUTSIDE RECORDS SUMMARY | 2022-03-13 11:50 | XMS_ITS | Encounter Summary ---
:1955 Author Organization [place] Address [facility] [place] [address] Care Team Providers Name Role Phone Unavailable Primary Care Provider Unavailable Encounter Details Date Type Department Care Team Description 04/07/2007 Consultation [facility] Madhu Toney MD [address] [facility] [place] [address] (Wo rk) Social History Tobacco Use Types Packs/Day Years Used Date Smoking Tobacco: Never Assessed Sex Assigned at Date Recorded Not on file documented as of this encounter Progress Notes Madhu Toney - 05/20/2007 9:06 PM BRANCH MAKER FINAL CHIEF COMPLAINT: Sleep apnea, reflux, hyperlipidemia, [...] include diet pills over 30 years ago, vkch-rha-[id number] diets, exercise. His attempts for weight loss, [...] one who had it done down in [place]. The patient is setting up his appointment [...] kathi Name: JETT GEORGES MRN: [id number] Account: [id number] : 1955 Consult Date: 04/07/2007 Document: [id number] CH MAKER documented in this encounter Plan of Treatment Not on filedocumented as of this encounter Visit Diagnoses Not on filedocumented in this encounter
--- OUTSIDE RECORDS SUMMARY | 2022-03-13 11:50 | XMS_ITS | Encounter Summary ---
:1955 Author Organization [place] Address [address] [place] [address] Care Team Providers Name Role Phone Unavailable Primary Care Provider Unavailable Encounter Details Date Type Department Care Team Description 10/20/2007 Historic Notes INTERFACED REPORT Interface, Transcript onMD Social History Tobacco Use Types Packs/Day Years Used Date Smoking Tobacco: Never Assessed Sex Assigned at Date Recorded Not on file documented as of this encounter Progress Notes Interface, Meat Manager - 08/06/2010 9:30 PM CDT General Information - How to be addressed Leandro - pianos and organs salesperson to Gabriella Foster (sister) notify: - Phone 1: [phone] - pianos and organs salesperson #2: Leandro Curiel (father) - Phone 1: [phone] - pianos and organs salesperson #3: Nusrat Vera (friend) - Phone 1: [phone] - Patient's Spoken Language, Andorran communication style Advance Directive - Do you [...] Considerations - Developmental None Learning Considerations - Catholic Learning None Considerations Activity-Exercise/Self Care - Ambulation [...] life Values/Beliefs/Spiritual Care - F: Catherine: Does Oriental Orthodox culture/spirituality/ uatsdin play an important part in your life? - Would you like Does not wish to have anyone contacted pastoral care/clergy/sports health club membership advisors notified? Mutuality/Individual Preferences - What information none [...] Tolerance, Values/Beliefs/Spiritual Care, Mut uality/Individual Preferences Interface, Meat Manager - 08/06/2010 9:27 PM CDT Bariatric [...]
--- OUTSIDE RECORDS SUMMARY | 2022-03-13 11:50 | XMS_ITS | Encounter Summary ---
:1955 Author Organization [place] Address [address] [place] [address] Care Team Providers Name Role Phone Unavailable Primary Care Provider Unavailable Encounter Details Date Type Department Care Team Description 10/21/2007 Results Only [facility] Kalpana Ram, [facility] AUDREY Results SURGICAL CONSULT [facility] CARL [address] [facility] [address] [place] [address] (Wo rk) Social History Tobacco Use Types Packs/Day Years Used Date Smoking Tobacco: Never Assessed Sex Assigned at Date Recorded Not on file documented as of this encounter Plan of Treatment Not on filedocumented as of this encounter Procedures Procedure Name Priority Date/Time Associated Diagnosis Comme [facility] UPPER GI W/O KUB Routine 10/21/2007 7:35 [...]
--- OUTSIDE RECORDS SUMMARY | 2022-03-13 11:50 | XMS_ITS | Encounter Summary ---
:1955 Author Organization [place] Address [address] [place] [address] Care Team Providers Name Role Phone Unavailable Primary Care Provider Unavailable Encounter Details Date Type Department Care Team Description 08/25/2007 Historic Notes INTERFACED REPORT Interface, Transcript onMD Social History Tobacco Use Types Packs/Day Years Used Date Smoking Tobacco: Never Assessed Sex Assigned at Date Recorded Not on file documented as of this encounter Progress Notes Interface, Fisheries Specialist - 08/07/2010 12:05 AM CDT BARIATRIC FOLLOW [...]
--- OUTSIDE RECORDS SUMMARY | 2022-03-13 11:50 | XMS_ITS | Encounter Summary ---
:1955 Author Organization [place] Address [address] [place] [address] Care Team Providers Name Role Phone Unavailable Primary Care Provider Unavailable Encounter Details Date Type Department Care Team Description 10/21/2007 Historic Results INTERFACED REPORT Alireza White MD [address] [facility] [address] [place] [address] (Wo rk) Social History Tobacco Use Types [...] SANTOS - BELELO POCT Performing Organization Address [facility] Phon e Number MISYS (ABNORMAL) Glucose by meter (10/21/2007 6:04 PM CDT) P athologist Signature Glucose 111 (H) 60 - 99 MISYS mg/dL Specimen Anatomical Collection Method Collection Time Receive d Time (Source) Location / / Volume Laterality 10/21/2007 6:04 PM 8 CDT 10:46 PM CDT Alireza SANTOS - BEAKER POCT Performing Organization Address [facility] Phon e Number MISYS (ABNORMAL) Glucose by meter (10/21/2007 11:35 AM CDT) P athologist Signature Glucose 134 (H) 60 - 99 MISYS mg/dL Specimen Anatomical Collection Method Collection Time Receive d Time (Source) Location / / Volume Laterality 10/21/2007 11:35 10/21/2007 AM CDT 10:46 PM CDT Alireza SANTOS - BELELO POCT Performing Organization Address [facility] Phon e Number MISYS (ABNORMAL) Hemoglobin (10/21/2007 10:05 AM CDT) P athologist Signature Hemoglobin 12.1 (L) 13.3 - 17.7 MISYS g/dL Specimen (Source) Anatomical Collection Method Collection Time Re ceived Time Location / / Volume Laterality 10/21/2007 10:05 10/21/2007 AM CDT Kalpana Ram PA-C LAB - BLOOD ORDERABLES Performing Organization Address [facility] Phon e Number MISYS (ABNORMAL) [...]
--- OUTSIDE RECORDS SUMMARY | 2022-03-13 11:50 | XMS_ITS | Encounter Summary ---
:1955 Author Organization [place] Address [address] [place] [address] Care Team Providers Name Role Phone Unavailable Primary Care Provider Unavailable Encounter Details Date Type Department Care Team Description 10/20/2007 Operative Report [facility] Em Merida MD (Fire Marshal Refinery) [address] Results [address] [place] [address] Social History Tobacco Use Types Packs/Day Years Used Date Smoking Tobacco: Never Assessed Sex Assigned at Date Recorded Not on file documented as of this encounter Progress Notes Em Merida - 10/27/2007 10:29 PM CDT FINAL 1st Lumber Press Operator: Kalpana Becker PA-C PREOPERATIVE DIAGNOSIS: 1. [...] kera Name: JETT GEORGES MRN: [id number] Account: [id number] : 1955 Procedure Date: 10/20/2007 Document: [id number] documented in this encounter Plan of Treatment Not on filedocumented as of this encounter Visit Diagnoses Not on filedocumented in this encounter
[2022-03-13] MEDS: HYDROmorphone 0.5 mg/0.5 ml inj 1 MG IM (11:57)
[2022-03-13 13:46] VITALS: BP 109/58; PULSE 68; RESP 20; TEMP 36.7
== END 2022-03-13 14:31 | disposition home or self-care (01) ==
PROVIDERS: Emergency Provider Emergency Medicine Emergency Medical Services; PCP Internal Medicine
DX: I82.401 Acute embolism and thrombosis of unspecified deep veins of right lower extremity (principal); T84.032A Mechanical loosening of internal right knee prosthetic joint, initial encounter
CPT/HCPCS: 93971; 96372; 99284; 99285; J1170

== ENCOUNTER 2022-04-05 15:10 | Outpatient (CLI) | payer MEDICARE, BC, SELFPAY ==
--- OUTSIDE RECORDS SUMMARY | 2022-04-05 06:57 | XMS_ITS | Clinical Summary ---
:1955 Author Organization [place] Address [address] [place] [address] Care Team Providers Name Role Phone Mario Keith MD Primary Care Provider [phone] Allergies Active Allergy Reactions Severity Noted Date [...] this topic Medical Devices Implanted Type Area Tool Honing Machine Set Up Operator Device Shelf Model / Identifier Expiration Serial / Date Lot Cement Bone Simplex Hv 40g W/O Gentra Cement, N/A: YVON 04/18/2019 [id number] / Implanted: Qty: 2 on 11/28/2017 Bone Knee ORTHOPEDICS / [id number] Description: Implanted into bilateral kn ees Persona Partial Knee System Partial Bárbara cular Surface Left Medial Size J 8mm Thickness Total Joint Left: uShip 08/17/2021 [id number] / Implanted: Qty: 1 on 11/28/2017 Component/Insert Knee / [id number] Procedures Procedure Name Priority Date/Time Associated Diagnosis Comme nts ANAEROBIC BACTERIAL Routine 03/21/2022 2:45 PM Effusion, Re sults for this CULTURE ROUTINE CDT unspecified knee procedur e are in the results section. GRAM STAIN Routine 03/21/2022 2:45 PM Effusion, Results f or this CDT unspecified knee procedure a re in the results section. AEROBIC BACTERIAL Routine 03/21/2022 2:45 PM Effusion, Resu lts for this CULTURE ROUTINE CDT unspecified knee procedur e are in the results section. from Last 3 Months Results Synovial fluid Aerobic Bacterial Culture Routine (03/21/2022 2:45 PM CDT) P athologist Signature Culture No Growth MARI 03/26/2022 U[facility] IDD 7:29 AM SPORTING GOODS SALES MANAGER LABORATORY Specimen Anatomical Collection Method Collection Time Receive d Time (Source) Location / / Volume Laterality Synovial fluid STRUCTURE OF RIGHT Non-blood 03/21/2022 2:45 PM 1 05/21/2021 4:34 KNEE REGION / Collection / CDT PM CDT Unknown Unknown Joe Strickland PA-C LAB - MICRO GENERAL ORDERABL ES Performing Organization Address City/State/ZIP Code Phon e Number [facility] ID[facility] LABORATORY [facility] [place] [address] Diag. Lab [address] [facility], [address] Gram Stain (03/21/2022 2:45 PM CDT) Patholo gist Method Time Signature Gram Stain No organisms 03/21/2022 [facility] Result seen 8:27 PM CDT LABORATORY Gram Stain 4+ WBC seen 03/21/2022 [facility] Result 8:27 PM CDT LABORATORY Comment: Predominantly PMNs Specimen Anatomical Collection Method Collection Time Receive d Time (Source) Location / / Volume Laterality Synovial fluid STRUCTURE OF RIGHT Non-blood 03/21/2022 2:45 PM 1 05/21/2021 4:34 KNEE REGION / Collection / CDT PM CDT Unknown Unknown Joe Strickland PA-C LAB - MICRO GENERAL ORDERABL ES Performing Organization Address City/State/ZIP Code Phon e Number [facility] IDD LABORATORY [facility] [place] [address] Diag. Lab [address] [facility], [address] Anaerobic Bacterial Culture Routine (03/21/2022 2:45 PM CDT) Patholo gist Method Time Signature Culture No anaerobic MARI 04/04/2022 [facility] organisms 11:36 AM SPORTING GOODS SALES MANAGER LABORATORY isolated Specimen Anatomical Collection Method Collection Time Receive d Time (Source) Location / / Volume Laterality Synovial fluid STRUCTURE OF RIGHT Non-blood 03/21/2022 2:45 PM 1 05/21/2021 4:34 KNEE REGION / Collection / CDT PM CDT Unknown Unknown Joe Strickland PA-C LAB - MICRO GENERAL ORDERABL ES Performing Organization Address City/State/ZIP Code Phon e Number [facility] ID[facility] LABORATORY [facility] [place] [place] [address] Diag. Lab [address] [facility], [address] from Last 3 Months Insurance Payer Benefit Plan / Subscriber ID Effective Phone Address T ype Group Dates BC[place] [id number] 2018-Prese [phone] [address] [id number] Indemnity nt [address] [place] [address] MEDICARE MEDICARE [id number] 2012-Pres [phone] ATTN JONI MS Medicare ent 40 [address] [facility] [place] [address] Advance Directives For more information, please contact: [phone] Latest Code Status on File Code Status Date Activated Date Inactivated Comments Full Code 03/03/2021 3:38 PM 03/06/2021 6:26 PM All basic and advanced life-sustaining interventions are performed as oj ropriate Question Answer Comments Code status determined by: Discussion with patient/ legal de cision maker Care Teams Night Patrol Inspector Relationship Specialty Start Date End Date Mario Keith MD PCP - General Internal Medicine 11/28/17 [facility] [address] [place] [address]
--- OUTSIDE RECORDS SUMMARY | 2022-04-05 06:57 | XMS_ITS | Clinical Summary ---
:1955 Author Organization [employer] [facility] [employer] [employer] [place] [address] Care Team Providers Name Role Phone Mario [...] Christophe Vargas PA 01/11/2022 Telephone Vivienne Crisostomo, AUTOMOTIVE BRAKE SPECIALIST CPAP M PABLO from Last 3 Months [...] 180.3 cm (5' 11) 07/23/2014 1:14 PM VETERINARY SCIENCE TEACHER Body Mass Index 40.03 07/23/2014 1:14 PM VETERINARY SCIENCE TEACHER Plan of Treatment Health Maintenance Due Date [...] Group MEDICARE PART A MEDICARE PART A [id number] 2013-Prese ATTN: CLAIMS - HB USE ONLY HB ONLY nt [address] [place] [address] MEDICARE PART B MEDICARE PART B [id number] 2012-Prese ATTN: CLAIMS - HB USE ONLY HB ONLY nt [address] [place] [address] MEDICARE - PB MEDICARE PB [id number] 2018-Presen ATTN : CLAIMS USE ONLY ONLY t [address] [place] [address] BLUE CROSS BLUE CROSS OF [id number] 2018-Presen [address] [place] [address] BLUE CROSS BLUE CROSS [id number] 2016-Presen [address] [address] [place] [address] t [facility] ONLY [phone] Advance Directives Latest Code Status on File Code Status Date Activated Date Inactivated Comments Full Code 01/04/2013 5:51 PM 01/05/2013 5:36 PM Care Teams Accelerator Technician Relationship Specialty Start Date End Date Mario Keith MD PCP - General Family Practice 07/06/101999 [place], [place] [id number]
--- OUTSIDE RECORDS SUMMARY | 2022-04-05 06:58 | XMS_ITS | Encounter Summary ---
:1955 Author Organization [place] Address [address] [place] [address] Care Team Providers Name Role Phone Unavailable Primary Care Provider Unavailable Encounter Details Date Type Department Care Team Description 03/06/2009 Historic Results [facility] [address] [facility] [place] [address] (Wo rk) Social History Tobacco Use Types [...]
--- OUTSIDE RECORDS SUMMARY | 2022-04-05 06:58 | XMS_ITS | Encounter Summary ---
:1955 Author Organization [place] Address [address] [place] [address] Care Team Providers Name Role Phone Unavailable Primary Care Provider Unavailable Encounter Details Date Type Department Care Team Description 03/07/2009 Historic Results [facility] [address] [place] [address], [address] [place] [address] (Wo rk) Social History Tobacco Use Types [...]
--- OUTSIDE RECORDS SUMMARY | 2022-04-05 06:58 | XMS_ITS | Encounter Summary ---
:1955 Author Organization [place] Address [address] [place] [address] Care Team Providers Name Role Phone Unavailable Primary Care Provider Unavailable Encounter Details Date Type Department Care Team Description 03/04/2009 [facility] [address] [facility] [place] [address] (Wo rk) Social History Tobacco Use Types [...] LAB - BLOOD ORDERABLES Performing Organization Address City/[facility]/ZIP Code Phon e Number MISYS Vitamin B12 [...]
--- OUTSIDE RECORDS SUMMARY | 2022-04-05 06:58 | XMS_ITS | Encounter Summary ---
:1955 Author Organization [place] Address [address] [place] [address] Care Team Providers Name Role Phone Unavailable Primary Care Provider Unavailable Encounter Details Date Type Department Care Team Description 03/05/2009 Historic Results [facility] [address] [facility], [address] [place] [address] (Wo rk) Social History Tobacco Use Types [...]
--- OUTSIDE RECORDS SUMMARY | 2022-04-05 06:58 | XMS_ITS | Encounter Summary ---
:1955 Author Organization [facility] Address [address] [place] [address] Care Team Providers Name Role Phone Unavailable Primary Care Provider Unavailable Encounter Details Date Type Department Care Team Description 03/07/2009 Historic Notes INTERFACED REPORT Interface, Transcript onMD Social History Tobacco Use Types Packs/Day Years Used Date Smoking Tobacco: Never Assessed Sex Assigned at Date Recorded Not on file documented as of this encounter Progress Notes Interface, Log Clerk - 08/05/2010 5:35 PM CDT General Information - Has NOT attended OT 13:00 as of: Plan - Plan: Continue to invite to groups to assess. ESTER Nicholson (MILLER)[Signed 12:38] Authored: General Information, Plan documented in this encounter Plan of Treatment Not on filedocumented as of this encounter Visit Diagnoses Not on filedocumented in this encounter
--- OUTSIDE RECORDS SUMMARY | 2022-04-05 06:58 | XMS_ITS | Encounter Summary ---
:1955 Author Organization [facility] Address [address] [place] [address] Care Team Providers Name Role Phone Unavailable Primary Care Provider Unavailable Reason for Visit Reason Onset Date Comments Clinic Care Coordination - Initial 02/27/2016 Encounter Details Date Type Department Care Team Description 02/27/2016 Telephone General Surgery Gaby Sanford, Clinic Care [address] [facility] RN Coordination - Initial 4th Floor [address] [phone] [place], [place] [phone] (Wo rk) Social History Tobacco Use Types Packs/Day Years Used Date Smoking Tobacco: Never Assessed Sex Assigned at Date Recorded Not on file documented as of this encounter Miscellaneous Notes Telephone Encounter - Gaby Sanford RN - 02/27/2016 3:25 PM CDT Referral from [employer] website. Patient has history of RYGB, would not be a candidate for the intragastric balloon. Encourage patient to set up appt for medical weight management. Contact information given. documented in this encounter Plan of Treatment Not on filedocumented as of this encounter Visit Diagnoses Not on filedocumented in this encounter
--- OUTSIDE RECORDS SUMMARY | 2022-04-05 06:58 | XMS_ITS | Encounter Summary ---
:1955 Author Organization [place] Address [address] [place] [address] Care Team Providers Name Role Phone Unavailable Primary Care Provider Unavailable Reason for Visit Reason Onset Date Comments Pt. Information/instruction 10/27/2012 Other Encounter Details Date Type Department Care Team Description 10/27/2012 Telephone Surgery Clinic Gaby Hicks, Pt. Samaria WAITE Information/instructio Building [address] [facility] n; 1st Floor, Clinic [address] [place] [id number] [phone] Social History Tobacco Use Types Packs/Day Years [...] had surgery done with Dr White out [facility] in 2007. 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 Pt has since gained weight back and is wondering about getting the ring surgery done to help him lose weight again. Pt wondering if any of the physicians here will do the ring surgery Pls call pt back to answer questions [phone] Thanks Coordinator talked to patient. Informed patient [...]
--- OUTSIDE RECORDS SUMMARY | 2022-04-05 06:58 | XMS_ITS | Encounter Summary ---
:1955 Author Organization [place] Address [address] [place] [address] Care Team Providers Name Role Phone Unavailable Primary Care Provider Unavailable Encounter Details Date Type Department Care Team Description 03/07/2009 Historic Notes INTERFACED REPORT Blas Cates DO [facility] [address] [facility] [address] [place] [address] (Wo rk) Social History Tobacco Use Types Packs/Day Years Used Date Smoking Tobacco: Never Assessed Sex Assigned at Date Recorded Not on file documented as of this encounter Progress Notes Interface, 1[employer] On [employer] - 08/05/2010 5:36 PM CDT Problem List [...]
--- OUTSIDE RECORDS SUMMARY | 2022-04-05 06:58 | XMS_ITS | Encounter Summary ---
:1955 Author Organization [place] Address [address] [place] [address] Care Team Providers Name Role Phone Unavailable Primary Care Provider Unavailable Reason for Visit Reason Onset Date Comments Abstract 05/28/2017 Encounter Details Date Type Department Care Team Description 05/28/2017 Documentation Only [facility] Erica Rodriguez bstract Surgical Weight Loss Paras Be [phone] [place] [address] [place] [address] [phone] Social History Tobacco Use Types Packs/Day Years Used Date Smoking Tobacco: Never Assessed Sex Assigned at Date Recorded Not on file documented as of this encounter Plan of Treatment Not on filedocumented as of this encounter Visit Diagnoses Not on filedocumented in this encounter
--- OUTSIDE RECORDS SUMMARY | 2022-04-05 06:58 | XMS_ITS | Encounter Summary ---
:1955 Author Organization [place] Address [address] [place] [address] Care Team Providers Name Role Phone Unavailable Primary Care Provider Unavailable Encounter Details Date Type Department Care Team Description 03/03/2009 Historic Education Trainer [facility] Stewart DO [facility] [address] [facility] [place] [address] (Wo rk) Social History Tobacco Use Types Packs/Day Years Used Date Smoking Tobacco: Never Assessed Sex Assigned at Date Recorded Not on file documented as of this encounter Progress Notes Interface, Education Trainer - 04/24/2011 7:16 AM WOOD MILLING MACHINE HAND FINAL CHIEF COMPLAINT: My family was concerned about me. HISTORY OF PRESENT ILLNESS: Jett Georges is a 53-year-old white male who presented to [facility], secondary to increased depression. The patient also states that he was hoping to come into the hospital so he could get on disability. Patient does report a 3-year history of depression and anxiety. He states that it all started when he stopped smoking. He states that he recently talked to a manganese heater and the manganese heater has convinced him that it was all [...] patient states that he grew up in [place], [place]. He did graduate from high school. [...] coordination are all within normal limits. DIAGNOSES: Corning I: Major depressive disorder, recurrent, severe without psychotic features. Benzodiazepine dependency and possible alcohol abuse. Corning II: Deferred. Corning III: As per Internal Medicine. Corning IV: Poor insight into his mental health issues. Corning V: GAF: 40. PLAN AND RECOMMENDATIONS: At this time will adjust his antidepressant medications. Will take him off his Ativan with a phenobarbital taper. Will use Seroquel to help control his anxiety. Will get the patient connected with outpatient psychiatry and therapy. Electronically signed on 03/30/2009 22:52 by BLAS CATES DO MT: niecy Name: JETT GEORGES Account: [id number] : 1955 Admitted: [id number] Document: [id number] MILLING MACHINE HAND documented in this encounter Plan of Treatment Not on filedocumented as of this encounter Visit Diagnoses Not on filedocumented in this encounter
--- OUTSIDE RECORDS SUMMARY | 2022-04-05 06:58 | XMS_ITS | Encounter Summary ---
:1955 Author Organization [place] Address [address] [place] [address] Care Team Providers Name Role Phone Mario Keith MD Primary Care Provider [phone] Encounter Details Date Type Department Care Team Description 07/20/2020 Telephone [facility] [address] [place] [address] Social History Tobacco Use Types [...] call back if he changes his mind. ER TAILER Telephone Encounter - Toni Aponte - 07/20/2020 3:53 PM CST Wero Moser, Pt had bypass 2007 (said at our system, but I don't see here or HE). He's heard that he can get a lap band on top of it... I explained the unlikeliness of that. But also that you might discuss a revision. bmi 40.4 OK to leaved detailed VM ER TAILER documented in this encounter Plan of Treatment Not on filedocumented as of this encounter Visit Diagnoses Not on filedocumented in this encounter Care Teams Chief Jailer Relationship Specialty Start Date End Date Mario Keith MD PCP - General Internal Medicine 11/28/17 [facility] [address] [place] [address] documented as of this encounter
--- OUTSIDE RECORDS SUMMARY | 2022-04-05 06:58 | XMS_ITS | Encounter Summary ---
:1955 Author Organization [facility] Address [address] [place] [address] Care Team Providers Name Role Phone Unavailable Primary Care Provider Unavailable Encounter Details Date Type Department Care Team Description 03/08/2009 Historic Results [facility] [address] [place] [address], [address] [place] [address] (Wo rk) Social History Tobacco Use Types [...]
--- OUTSIDE RECORDS SUMMARY | 2022-04-05 06:58 | XMS_ITS | Encounter Summary ---
:1955 Author Organization [place] Address [address] [facility] [place] [address] Care Team Providers Name Role Phone Unavailable Primary Care Provider Unavailable Reason for Visit Reason Onset Date Comments Patient Request 10/23/2012 Encounter Details Date Type Department Care Team Description 10/23/2012 Telephone [facility] Weight Alireza White MD Patient Request Management Clinic Ed lexis [address] [place] [place] [place] [address] [address] [place] [phone] Social History Tobacco Use Types Packs/Day Years [...]
--- OUTSIDE RECORDS SUMMARY | 2022-04-05 06:58 | XMS_ITS | Encounter Summary ---
:1955 Author Organization [place] Address [address] [place] [address] Care Team Providers Name Role Phone Unavailable Primary Care Provider Unavailable Encounter Details Date Type Department Care Team Description 03/04/2009 Consultation [facility] [address] [facility] [place] [address] (Wo rk) Social History Tobacco [...] extremities intact grossly in all 4 extremities, data engineer is 5/5 bilaterally. LABORATORY DATA: His comprehensive [...] STUDENT MT: dougie Name: JETT GEORGES Account: [id number] : 1955 Consult Date: 03/04/2009 Document: [id number] cc: Shukri Becker DO documented in this encounter Plan of Treatment Not on filedocumented as of this encounter Visit Diagnoses Not on filedocumented in this encounter
--- OUTSIDE RECORDS SUMMARY | 2022-04-05 06:58 | XMS_ITS | Encounter Summary ---
:1955 Author Organization [place] Address [address] [place] [address] Care Team Providers Name Role Phone Mario Keith MD Primary Care Provider [phone] Encounter Details Date Type Department Care Team Description 11/27/2017 [facility] [place] [address] [place] [address] [place], [place] [phone] Social History Tobacco Use Types Packs/Day Years [...] sitting Prep: ChloraPrep Patient monitoring: heart rate, asphalt paver operator, continuous pulse ox and blood pressure Approach: [...] pressure, heart rate, continuous pulse oximetry and asphalt paver operator Laterality: right Injection technique: ultrasound guided Ultrasound [...] pressure, heart rate, continuous pulse oximetry and asphalt paver operator Laterality: left Injection technique: ultrasound guided Ultrasound [...] on filedocumented in this encounter Care Teams [employer] Social Worker Relationship Specialty Start Date End Date Mario Keith MD PCP - General Internal Medicine 11/28/17 [facility] [address] [place] [address] documented as of this encounter
--- OUTSIDE RECORDS SUMMARY | 2022-04-05 06:58 | XMS_ITS | Encounter Summary ---
:1955 Author Organization [place] Address [facility] [place] [address] Care Team Providers Name Role Phone Mario Keith MD Primary Care Provider Encounter Details Date Type Department Care Team Description 06/20/2012 Abstract [facility] Weight MichaelErica lozano, Management Clinic Ed lexis PA-C [address] [facility] [address] [place] [address] [place] [phone] Social History Tobacco Use Types Packs/Day Years Used Date Smoking Tobacco: Never Assessed Sex Assigned at Date Recorded Not on file documented as of this encounter Plan of Treatment Not on filedocumented as of this encounter Visit Diagnoses Not on filedocumented in this encounter Care Teams Otolaryngology Physician Relationship Specialty Start Date End Date Mario Keith MD PCP - General Internal Medicine 11/28/17 [facility] [address] [place] [address] documented as of this encounter
--- OUTSIDE RECORDS SUMMARY | 2022-04-05 06:58 | XMS_ITS | Encounter Summary ---
:1955 Author Organization [place] Address [address] [place] [address] Care Team Providers Name Role Phone Unavailable Primary Care Provider Unavailable Encounter Details Date Type Department Care Team Description 03/04/2009 Historic Notes INTERFACED REPORT David Minaya MD [facility] [address] [address] [place] [facility] [place] [address] (Wo rk) Social History Tobacco Use Types Packs/Day Years Used Date Smoking Tobacco: Never Assessed Sex Assigned at Date Recorded Not on file documented as of this encounter Progress Notes Graciela Minaya MD - 08/05/2010 5:44 PM CDT ATTENDING PHYSICIAN - Attending Note: I examined the patient and discussed the case with the physician community relations assistant student who is severing as a [...]
--- OUTSIDE RECORDS SUMMARY | 2022-04-05 06:58 | XMS_ITS | Encounter Summary ---
:1955 Author Organization [place] Address [address] [place] [address] Care Team Providers Name Role Phone Unavailable Primary Care Provider Unavailable Encounter Details Date Type Department Care Team Description 03/04/2009 Historic Notes INTERFACED REPORT Interface, Transcript on, Social History Tobacco Use Types Packs/Day Years Used Date Smoking Tobacco: Never Assessed Sex Assigned at Date Recorded Not on file documented as of this encounter Progress Notes Interface, Senior Librarian - 08/05/2010 5:43 PM CDT General Information - Has NOT attended OT 14:00 as of: Plan - Plan: Encourage attendance and participation. ALISHA Vieyra (OTR)[Signed 15:20] Authored: General Information, Plan documented in this encounter Plan of Treatment Not on filedocumented as of this encounter Visit Diagnoses Not on filedocumented in this encounter
--- OUTSIDE RECORDS SUMMARY | 2022-04-05 06:58 | XMS_ITS | Encounter Summary ---
:1955 Author Organization [facility] Address [address] [place] [address] Care Team Providers Name Role Phone Mario Keith MD Primary Care Provider [phone] Reason for Referral Consultation (Routine) Specialty Diagnoses / Procedures Referred By Contact Refer red To Contact Senthil Zhao MD [address] [place] [address] Referral ID Status Reason Start Date Expiration Date Visits Requ ested Visits [facility]ized . [facility]) Specialty Diagnoses / Procedures Referred By Contact Refer red To Contact Senthil Zhao MD [address] [place] [address] Referral ID Status Reason Start Date Expiration Date Visits Requ ested Visits Authorized [facility] Health Therapies & Aides (Routine) Specialty Diagnoses / Procedures Referred By Contact Refer red To Contact Senthil Zhao MD [address] [place] [address] Referral ID Status Reason Start Date Expiration Date Visits Requ ested Visits Authorized Reason for Visit Reason Comments One-sided Weakness Auth/Cert Specialty Diagnoses / Procedures Referred By Contact Refer red To Contact EMERGENCY MEDICINE Diagnoses Acute right-sided weakness Acute right-sided weakness Emergency Dept [address] [place] [address] Phone: Fax: Referral ID Status Reason Start Date Expiration Date Visits Requ ested Visits Authorized [id number] 1 1 Encounter Details Date Type Department Care Team Description 03/03/2021 - Emergency [facility] Deandre Alvarez Cla, MD [facility] [address] [place], [place] [id number] 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) (Primary Dx); 03/06/2021 [place] [address] Medical Sandeep Nunez DO [address] [place] [address] Acute right-sided weakness; Surgical Romaine Eng MD [address] [place] [address] JUSTIN (generalized anxiety disorder); [address] [facility] [place] [address] Social History Tobacco Use Types [...] - 03/06/2021 3:[address] [facility] Discharge Summary Hospitalist Date of [...] I, or a nurse practitioner or physician's lab assistant working with me, had a rvtq-re-icwm encounter that meets the physician qojj-ga-rlqd encounter requirements with this patient on: 03/05/2021. [...] effort and are for medical reasons or mandaeism services or infrequently or of short duration when for other reasons) because: Patient is bedbound due to: fall risk, unsteady gait. Based on the above findings. I certify that this patient is confined to the home and needs intermittent fpc care, physical therapy and/or speech therapy. The patient is under my care, and susana initiated the establishment of the plan of care. This patient will be followed by a physician who will periodically review the plan of care. Physician/Provider to provide follow up care: Mario Keith Attending [facility] physician (the Medicare certified [place] provider): Senthil Zhao MD Physician Signature: See [...] next 24-48 hours, Please call them at [phone] documented in this encounter Medications at Time [...] EMG. Praful Gaytan MD (general neurology) pgr [phone] Senthil Zhao MD - 03/05/2021 2:[address] [facility] Hospitalist Progress Note Assessment & [...] MR CERVICAL SPINE W/O CONTRAST LOCATION: [facility] DATE/TIME: 03/05/2021 10:42 AM INDICATION: Cervical radiculopathy. 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 lives alone in [facility] with bedroom upstairs and railing on [...] Current Living Arrangements other (see comments) ([address] [place] [address]) Home Accessibility stairs to enter home;stairs within home Number of Stairs, Main Entrance 2 Stair Railings, Main Entrance railing on right side (ascending) Number of Stairs, Within Home, Primary greater than 10 stairs Stair Railings, Within Home, Primary railing on right side (ascending) Transportation Anticipated car, drives self;family or friend will provide Living Environment Comments Pt. lives alone in [facility] with bedroom upstairs and railing on [...] of Daily Living BADL Assessment toileting Toileting [place] Level (Toileting) supervision;set up;assist of 2;moderate assist [...] Needs Upon Discharge (OT) gait belt;raised toilet seat;shell machine operator;shower chair;tub bench;commode chair Risk & Benefits [...] from the original note were not included. [facility] Hospitalist Progress Note Admit 03/03/2021 9:44 AM Name: Jett Georges II Provider: Romaine Eng MD, [facility] Date of Service: 03/04/2021 Reason for [...] ?? #Hypertension-blood pressure stable for now, resume LANDFILL GAS TECHNICIAN lisinopril 20 mg, ?? #Anxiety-depression --Per pharmacy records he is on Zoloft daily, Seroquel 200 mg nightly, lorazepam as needed --Given his grogginess I will resume his Zoloft and LANDFILL GAS TECHNICIAN Seroquel for now but hold off on [...] Holder PA-C - 03/03/2021 2:41 PM CDT [facility] Admission History and Physical Examination NAME: [...] repeat #Hypertension-blood pressure stable for now, resume LANDFILL GAS TECHNICIAN lisinopril 20 mg, #Anxiety-depression --Per pharmacy records he is on Zoloft daily, Seroquel 200 mg nightly, lorazepam as needed --Given his grogginess I will resume his Zoloft and LANDFILL GAS TECHNICIAN Seroquel for now but hold off on [...] ARTHROPLASTY ; Surgeon: Joseph Ramesh MD; Location: [facility]; Service: Orthopedics ??? GASTRIC BYPASS ??? [...] plaque. There is no stenosis or dissection. [place]: There is some mild calcific [...] -- TROPONIN <0.015 -- Carli Holder PA-C [facility] Medicine March 03, 2021 Securely message with the [employer] Console (learn more here) Text page via AudioTag Paging/Directory Associated attestation - Sandeep Nunez DO [...] AM CDTAssociated Order(s): ORTHOPEDIC SURGERY IP CONSULT [facility] Orthopedic Consultation Jett Georges II Age: [...] ARTHROPLASTY ; Surgeon: Joseph Ramesh MD; Location: [facility]; Service: Orthopedics ??? GASTRIC BYPASS ??? [...] plaque. There is no stenosis or dissection. [place]: There is some mild calcific [...] MR CERVICAL SPINE W/O CONTRAST LOCATION: [facility] DATE/TIME: 03/05/2021 10:42 AM INDICATION: Cervical radiculopathy. [...] Negative Ketones Urine Negative Negative mg/dL Specific [place] Urine 1.017 1.003 - 1.035 Blood Urine [...] Range Hold Specimen JIC Extra Green Top (University Heparin) Tube Status: None Result Value Ref [...] recent exposure or clinical presentation suggests COVID-19. [facility] are certified under the Clinical Laboratory [...] Rate 83 BPM Atrial Rate 83 BPM NM Interval 246 ms QRS Duration 122 ms QT 394 ms QTc 462 ms P [place] 69 degrees R AXIS -72 degrees T [place] 19 degrees Interpretation ECG Sinus rhythm with 1st degree A-V block with occasional Premature ventricular complexes Left anterior fascicular block Abnormal ECG No previous ECGs available Neurology IP Consult: General (non-stroke/non-ICU); Patient to be seen: Routine - within 24 hours; right arm weakness, palsy?; Furnace And Wash Equipment Operator may enter orders: Yes; Requesting provider? Hospitalist [...] ARTHROPLASTY ; Surgeon: Joseph Ramesh MD; Location: [facility]; Service: Orthopedics ??? GASTRIC BYPASS ??? [...] symmetric movements. MOTOR: Tone is difficult to crabber, pain or difficulty relaxing complicate the assessment [...] without Contrast Praful Gaytan MD (general neurology) [facility] [phone] 1. Acute right-sided weakness Care Management / Social Work IP Consult Status: None () Narrative Sandhya Heath, BICYCLE REPAIRMAN 03/04/2021 3:22 PM Care Management Initial Consult General Information Assessment completed with: Patient, Type of CM/SW Visit: Initial Assessment Primary Care Provider verified and updated as needed: Readmission within the last 30 days: no previous admission in last 30 days Reason for Consult: discharge planning Communication Assessment Patient's communication style: spoken language (Martiniquais or Bilingual) Hearing Difficulty or Deaf: no [...] Gatherings with Friends and Family: ??? Attends Moravian Services: ??? Active Member of Clubs or [...] find to accept referral SW went to [employer] web site.. Called home care agencies but had to navigate through will call order clerk services SW was able to find [facility] [phone] . Requested PT/OT CIRCULATION CLERK support for pt. They could provide start of care on Saturday Will fax face sheet and H&P over today and final d.c orders tomorrow Pt stated he will call his son for a ride home tomorrow. 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 Hospitalist (if different from attending physician... Status: None () Narrative Jairo Buckley PA-C 03/05/2021 4:[address] [facility] Neurosurgery Consultation Date of Admission: [...] with further consultation recommendations. Jairo Howe [facility] Neurosurgery [address] [place] [address] Pager [phone] Code Status Full Code Reason for Consult [...] ARTHROPLASTY ; Surgeon: Joseph Ramesh MD; Location: [facility]; Service: Orthopedics ??? GASTRIC BYPASS ??? [...] Status --------- ------ CBC with platelets and d...[[id number]] Abnormal Final result Please view results for these tests on the individual orders. Extra Tube ([place] Draw) Status: None Narrative The following orders were created for panel order Extra Tube ([place] Draw). Procedure Abnormality Status --------- ------ Extra Blue Top Tube[[id number]] Final result Extra Green Top (University...[[id number]] Final result Extra Purple Top Tube[[id number]] Final result Please view results for these [...] performed on this consult: 45 minutes. Veronica Murerll PA-C Associated attestation - Robin Degroot MD - 03/07/2021 12:43 PM CDT Physician Attestation I agree with the information in this note. Jairo Sy PA-C - 03/05/2021 2:30 PM CDTAssociated Order(s): SPINE SURGERY ADULT IP CONSULT [facility] Neurosurgery Consultation Date of Admission: [...] with further consultation recommendations. Jairo Buckley PA-C [facility] Neurosurgery [place] [address] Pager [phone] Code Status Full Code Reason for Consult [...] ARTHROPLASTY ; Surgeon: Joseph Ramesh MD; Location: [facility]; Service: Orthopedics ??? GASTRIC BYPASS ??? [...] personally see this patient today. Sandhya Heath, BICYCLE REPAIRMAN - 03/04/2021 3:22 PM CDTAssociated Order(s): CARE MANAGEMENT / SOCIAL WORK IP CONSULT Care Management Initial Consult General Information Assessment completed with: Patient, Type of CM/SW Visit: Initial Assessment Primary Care Provider verified and updated as needed: Readmission within the last 30 days: no previous admission in last 30 days Reason for Consult: discharge planning Communication Assessment Patient's communication style: spoken language (Martiniquais or Bilingual) Hearing Difficulty or Deaf: no [...] Gatherings with Friends and Family: ??? Attends Moravian Services: ??? Active Member of Clubs or [...] find to accept referral SW went to [employer] web site.. Called home care agencies but had to navigate through will call order clerk services SW was able to [facility] [phone] . Requested PT/OT CIRCULATION CLERK support for pt. They could provide [...] ARTHROPLASTY ; Surgeon: Joseph Ramesh MD; Location: [facility]; Service: Orthopedics ??? GASTRIC BYPASS ??? [...] symmetric movements. MOTOR: Tone is difficult to crabber, pain or difficulty relaxing complicate the assessment [...] Contrast Praful Gaytan MD (general neurology) pgr [phone] 1. Acute right-sided weakness documented in this encounter ED Notes Bhavesh Lynn RN - 03/03/2021 12:16 PM CDT [facility] ED Nurse Handoff Report Jett Georges II is a 65 year old male ED Chief complaint: One-sided Weakness . ED Diagnosis: Final diagnoses: Acute right-sided weakness Allergies: Allergies Allergen Reactions ??? Zyban [Bupropion Hydrobromide] Hives Code Status: Full Code Activity level - Baseline/Home: Independent. Activity Level - Current: Assist X 1. Lift room needed:No. Bariatric: No Mixed Crop Farmer Needed: No Isolation: No. Infection: Not Applicable. [...] recent exposure or clinical presentation suggests COVID-19. [facility] are certified under the Clinical Laboratory [...] Status --------- ------ CBC with platelets and d...[[id number]] Abnormal Final result Please view results for these tests on the individual orders. EXTRA TUBE Narrative: The following orders were created for panel order Extra Tube ([place] Draw). Procedure Abnormality Status --------- ------ Extra Blue Top Tube[[id number]] Final result Extra Green Top (University...[[id number]] Final result Extra Purple Top Tube[[id number]] Final result Please view results for these [...] Unable to fully extend the right wrist. X Ray Developer strength 5/5 and symmetric bilaterally. Left upper [...] to prior, dated 11/28/2017. Rate 83 bpm. NM interval 246 ms. QRS duration 122 ms. [...] Status --------- ------ CBC with platelets and d...[[id number]] Abnormal Final result Please view results for these tests on the individual orders. EXTRA TUBE Narrative: The following orders were created for panel order Extra Tube ([place] Draw). Procedure Abnormality Status --------- ------ Extra Blue Top Tube[[id number]] Final result Extra Green Top (University...[[id number]] Final result Extra Purple Top Tube[[id number]] Final result Please view results for these [...] care of Dr. Nunez. 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 See goals on Care Plan in [facility] electronic health record for goal [...] original note were not included. [facility] OUTPATIENT PHYSICAL THERAPY EVALUATION PLAN OF TREATMENT FOR OUTPATIENT REHABILITATION (COMPLETE FOR INITIAL CLAIMS ONLY) Patient's Last Name, First Name, M.I. Date of : 1955 Jett Georges Provider's Name [facility] Onset Date: 03/03/21 Start of Care Date: 03/04/2021 Type: _X_PT ___OT ___SLP Medical Diagnosis: R-sided weakness PT Diagnosis: Impaired fn mobility Visits from SOC: 1 _ Plan of Treatment/Functional Goals Planned Interventions: bed mobility training, balance training, patient/family education, stair training, strengthening, gait training, neuromuscular re- education, stretching, transfer training Goals: See Physical Therapy Goals on Care Plan in [facility] electronic health record. Therapy Frequency: Daily Predicted Duration of Therapy Intervention: 3 days _ I CERTIFY THE NEED FOR THESE SERVICES FURNISHED UNDER THIS PLAN OF TREATMENT AND WHILE UNDER MY CARE (Physician co-signature of this document indicates review and certification of the therapy plan). , Referring Physician: Sandeep Nunez, DO Initial Assessment See Physical Therapy evaluation dated in [facility] electronic health record. Associated attestation - Romaine Eng MD - 03/04/2021 6:08 PM CDT I CERTIFY THE NEED FOR THESE SERVICES FURNISHED UNDER THIS PLAN OF TREATMENT AND WHILE UNDER MY CARE (Physician co-signature of this document indicates review and certification of the therapy plan). Utilization Review - Nikki Gonzalez MD - 03/04/2021 12:10 PM CDT [facility] Admission Status; Secondary Review Determination Admission [...] Sincerely, Nikki Gonzalez MD MPH Utilization Review [facility]. Plan of Care - Amelia [...] PT and OT. Neuro consult. Bedside Nurse: mAelia Kiran RN Pharmacy-Admission Medication History - Varinder Daniels [facility] - 03/03/2021 2:10 PM CDT Admission medication history interview status for this patient is complete. See [facility] admission navigator for allergy information, prior to admission medications and immunization status. Medication history interview done, indicate source(s): Patient Medication history resources (including written lists, pill bottles, clinic record):[facility]: [id number] [place], [place] - [address] [address] Changes made to LANDFILL GAS TECHNICIAN medication list: Added: all meds Changed: trazodone 75 mg TID -> at bedtime Reported as Not Taking: none Removed: none Actions taken by pharmacist (provider contacted, etc):left sticky note for provider Additional medication history information: - Patient may have confused trazodone with tramadol and took about 10 tramadol tablets in total yesterday. - The current medication list was completed to the best of race and sports book writer's ability using available resources (e.g. [employer] dispensing [...] City/State/ZIP Code Phon [place] [address] Care Lab [address] Lab (1st floor, no room number) [...] in clude each brachial plexus in the [id number]. JOHN HAWTHORNE MD SYSTEM ID: ??[id number] Narrative 03/06/2021 2:48 PM CDT MRI OF [...] in clude each brachial plexus in the [id number]-sa-wnqm. JOHN HAWTHORNE MD SYSTEM ID: [id number] Veronica Murrell PA-C IMG MRI ORDERABLES (ABNORMAL) [...] Address City/State/ZIP Code [place] [address] Care Lab [address] Lab (1st floor, no room number) [...] HANNAH - ENEDINA POCT Performing Organization Address City/[facility]/ZIP Code [place] [address] Care Lab [address] Lab (1st floor, no room number) [...] Address City/State/ZIP Code [place] [address] Care Lab [address] Lab (1st floor, no room number) [...] City/State/ZIP Code Phon [place] [address] Care Lab [address] Lab [...] Unknown CDT AM CDT Sandeep Nunez DO [employer] POCT Performing Organization Address City/[facility]/ZIP Code [place] [address] Care Lab [address] Lab (1st floor, no room number) [...] LAB - BEAKER POCT Performing Organization Address City/[facility]/ZIP Code [place] [address] Care Lab [address] Lab (1st floor, no room number) [...] LAB - BEAKER POCT Performing Organization Address City/[facility]/ZIP Code Ph[place] [address] Care Lab [address] Lab (1st floor, no room number) [...] LAB - BEAKER POCT Performing Organization Address City/[facility]/ZIP Code [place] [address] Care Lab [address] Lab (1st floor, no room number) [...] City/State/ZIP Code Ph[place] [address] Care Lab [address] Lab (1st floor, no room number) [...] City/State/ZIP Code [place] [address] Care Lab [address] Lab (1st floor, no room number) [...] City/State/ZIP Code [place] [address] Care Lab [address] Lab (1st floor, no room number) (ABNORMAL) Basic metabolic panel (03/04/2021 8:02 AM CDT) [facility] Method Time Signature Sodium 132 (L) [...] LAB - BLOOD ORDERABLES Performing Organization Address City/[facility]/ZIP [place] [address] Care Lab [address] Lab (1st floor, no room number) [...] LAB - BEAKER POCT Performing Organization Address City/[facility]/ZIP Code [place] [address] Care Lab [address] Lab (1st floor, no room number) [...] LAB - BEAKER POCT Performing Organization Address City/[facility]/ZIP Code [place] [address] Care Lab [address] Lab (1st floor, no room number) [...] LAB - BLOOD ORDERABLES Performing Organization Address City/[facility]/ZIP Code [place] [address] Care Lab [address] Lab (1st floor, no room number) [...] LAB - BLOOD ORDERABLES Performing Organization Address City/[facility]/ZIP Code [place] [address] Care Lab [address] Lab (1st floor, no room number) [...] Code Phon e Number [place] [address] Care Lab [address] Lab (1st floor, no room number) [...] LAB - BEAKER POCT Performing Organization Address City/[facility]/ZIP Code Phon e Number [place] [address] Care Lab [address] Lab (1st floor, no room number) [...] LAB - BLOOD ORDERABLES Performing Organization Address City/[facility]/ZIP [place] Phon [place] [phone] Care Lab [address] Lab (1st floor, no room number) [...] LAB - BLOOD ORDERABLES Performing Organization Address City/[facility]/ZIP Code [place] [address] Care Lab [address] Lab (1st floor, no room number) [...] LAB - BLOOD ORDERABLES Performing Organization Address City/[facility]/ZIP [place] [address] Care [address] Lab (1st floor, no room number) [...] atrophy is present. Minimal patchy white matter ojel nges are seen in both hemispheres without [...] exposure or clinical presentation sugges ts COVID-19. [facility] [employer] are certified under the Clinical Laborat ory Improvement Amendments of 1988 (CLIA-88) as qualified to perform moderate and/or high complexity laboratory testing. Deandre Alvarez MD LAB - MICRO GENERAL ORDERABL ES Performing Organization Address City/State/ZIP Code [place] [phone] Care Lab [address] [facility] Lab (1st floor, no room number) (ABNORMAL) UA with Microscopic reflex to Culture (03/03/2021 11:03 AM CDT) [facility] Method Time Signature Color Urine Light Colorless, 03/03/2021 LABORATORY Yellow Straw, 11:28 AM Light CDT Yellow, Yellow Appearance Urine Clear Clear 03/03/2021 LABORATOR Y 11:28 AM CDT Glucose Urine 150 (A) Negative 03/03/2021 LABORATORY mg/dL 11:28 AM CDT Bilirubin Urine Negative Negative 03/03/2021 LABORATORY 11:28 AM CDT Ketones Urine Negative Negative 03/03/2021 LABORATORY mg/dL 11:28 AM CDT Specific [place] 1.017 1.003 - 03/03/2021 LABORATOR Y Urine [...] Address City/State/ZIP Code [place] [phone] Care Lab [address] Lab (1st floor, no room number) [...] plaque. There is no stenosis or dissection. [place]: There is some mild tracee [...] plaque. There is no stenosis or dissection. [place]: There is some mild tracee [...] RESULTS Atrial Rate 83 BPM RADIOLOGY RESULTS NM Interval 246 ms RADIOLOGY RESULTS QRS Duration 122 ms RADIOLOGY RESULTS QT 394 ms RADIOLOGY RESULTS QTc 462 ms RADIOLOGY RESULTS P [place] 69 degrees RADIOLOGY RESULTS R AXIS -72 degrees RADIOLOGY RESULTS T [place] 19 degrees RADIOLOGY RESULTS Interpretation Sinus rhythm [...] (ABNORMAL) Lipid Profile (03/03/2021 9:58 AM CDT) [facility] Method Time Signature Cholesterol 152 <200 [...] Organization Address City/State/[place] [phone] Care Lab [address] Lab (1st floor, no room number) [...] Organization Address City/State/[place] [address] Care Lab [address] Lab (1st floor, no room number) [...] Address City/State/ZIP Code [place] [address] Care [address] Lab (1st floor, no room number) [...] LAB - BLOOD ORDERABLES Performing Organization Address City/[facility]/ZIP [place] [address] Care Lab [address] Lab (1st floor, no room number) [...] Organization Address City/State/[place] [address] Care Lab [address] Lab (1st floor, no room number) Extra Green Top (University Heparin) Tube (03/03/2021 9:58 AM CDT) P athologist Signature Hold Specimen JIC 03/03/2021 [facility] 11:18 AM CDT Specimen Anatomical Collection Method / Collection Time Recei karin Time (Source) Location / Volume Laterality Blood STRUCTURE OF LEFT Venipuncture / 03/03/2021 9:58 03/03 UPPER LIMB / Unknown AM CDT 10:07 AM CDT Unknown Deandre Alvarez MD LAB - BLOOD ORDERABLES Performing Organization Address City/[facility]/ZIP Code [facility] [place] [address] Care Lab [address] Lab (1st floor, no room number) [...] Organization Address City/State/[place] [address] Care Lab [address] Lab (1st floor, no room number) (ABNORMAL) CBC with platelets and differential (03/03/2021 9:58 AM CDT) [facility] gist Method Time Signature WBC Count 13.3 [...] LAB - BLOOD ORDERABLES Performing Organization Address City/[facility]/ZIP Code [place] [phone] Care Lab [address] Lab (1st floor, no room number) [...] LAB - BLOOD ORDERABLES Performing Organization Address City/[facility]/ZIP Code [place] [phone] Care Lab [address] Lab (1st floor, no room number) [...] LAB - BLOOD ORDERABLES Performing Organization Address City/[facility]/ZIP Code [place] [address] Care Lab [address] Lab (1st floor, no room number) [...] LAB - BLOOD ORDERABLES Performing Organization Address City/[facility]/ZIP Code [place] [address] Care Lab [address] Lab (1st floor, no room number) [...] Address City/State/ZIP Code [place] [address] Care Lab [address] Lab (1st floor, no room number) [...] City/State/ZIP Code Ph[place] [address] Care Lab [address] Lab [...] 1914, Administer intramuscular if an intravenous ro chippewa-cree is not available and notify provider when [...] 1914, Administer intramuscular if an intravenous ro chippewa-cree is not available and notify provider when [...] mg, Oral, EVERY 6 HOURS PRN, moderate pain (4-6), Starting on 03/04/21 at 0803 traMADol (ULTRAM) tablet 50-100 mg Given 03/06/2021 3:58 PM CDT 100 mg 50-100 mg, Oral, EVERY 6 HOURS PRN, moderate pain (4-6), Starting on 03/04/21 at 0953 Given 03/06/2021 [...] Bhavesh Lynn RN)2210 (Given - Provider: Amelia Krian RN) 0856 (Given - Provider: Bhavesh Lynn [...] meal insulin aspart (NovoLOG) injection (RAPID ACTING) 7 (Not Given - Provider: Amelia Kiran RN [...] Kiran RN) 2135 (Given - Provider: Amelia M Magno, RN) 75 mg, Oral, AT BEDTIME, First [...] Lynn, RN) 0156 (Given - Provider: Amelia perez RN) 650 mg, Oral, EVERY 4 HOURS [...] reece: Bhavesh Lynn RN)1610 (Given - Provider: Bhaevsh Lynn RN)2209 (Given - Provider: Amelia Kiran RN) 0522 (Given - Provider: Amelia perez RN)1144 (Given - Provider: Bhavesh Lynn RN)1805 (Given - Provider: Bhavehs Lynn RN) 0613 (Given - Provider: Amelia [...] PRN, opioid reversal, Starting on Sat03/03/21 at 4
Administer intramuscular if an intravenous route is [...] stools.
documented in this encounter Care Teams Resolution Manager Relationship Specialty Start Date End Date Mario Keith MD PCP - General Internal Medicine 11/28/17 [facility] [address] [place] [address] documented as of this encounter
--- OUTSIDE RECORDS SUMMARY | 2022-04-05 06:58 | XMS_ITS | Encounter Summary ---
:1955 Author Organization [place] Address [address] [place] [address]. [place] [address] Care Team Providers Name Role Phone Mario Keith MD Primary Care Provider [phone] Encounter Details Date Type Department Care Team Description 11/28/2017 [address] - [facility] [address] [place] [address] [place] [address] [facility] N [phone] [facility] [address] [place], [place] [address] Social History Tobacco Use Types [...] on filedocumented in this encounter Care Teams Manager Drilling Relationship Specialty Start Date End Date Mario Keith MD PCP - General Internal Medicine 11/28/17 [facility] [address] [place] [address] documented as of this encounter
--- OUTSIDE RECORDS SUMMARY | 2022-04-05 06:58 | XMS_ITS | Encounter Summary ---
:1955 Author Organization [place] Address [address] [place] [address] Care Team Providers Name Role Phone Unavailable Primary Care Provider Unavailable Encounter Details Date Type Department Care Team Description 03/07/2009 Historic Notes INTERFACED REPORT David Minaya MD [facility] [address] [place] [address] (Wo rk) Social History Tobacco [...]
--- OUTSIDE RECORDS SUMMARY | 2022-04-05 06:58 | XMS_ITS | Encounter Summary ---
:1955 Author Organization [place] Address [address] [place] [address] Care Team Providers Name Role Phone Unavailable Primary Care Provider Unavailable Encounter Details Date Type Department Care Team Description 03/05/2009 Historic Notes INTERFACED REPORT David Minaya MD [facility] [address] [place] [facility] [place] [address] (Wo rk) Social History Tobacco [...]
--- OUTSIDE RECORDS SUMMARY | 2022-04-05 06:58 | XMS_ITS | Encounter Summary ---
:1955 Author Organization [place] Address [facility] [place] [address] Care Team Providers Name Role Phone Mario Keith MD Primary Care Provider [phone] Encounter Details Date Type Department Care Team Description 11/28/2017 - Hospital Encounter [facility] Bre[place], Prim keya osteoarthritis 11/29/2017 [facility], [address] [facility] ORTHOPAEDICS [place], [place] [address] [facility] [address] [address] [place] [address] [place], [place] [id number] Social History Tobacco Use Types Packs/Day Years [...] at discharge: Leandro Curiel Home Medication Instructions JESUSITA:[id number] Printed on:11/29/17 1430 Medication Information acetaminophen (TYLENOL) [...] with oral pain medication Marion Romano PA-C [facility] Maria E Russo MD - 11/29/2017 [...] spent 35 min Maria E Russo MD. [facility] medicine service Selam Overton RT - 11/28/2017 3:13 PM CDT 11/28/17 1512 NPPV Other SpO2 96 % CPAP CPAP Pt. Owned Device Yes;Clean;Functional (does not bleed in oxygen or use humidity, home unit ) CPAP Pressure (cmH2O) (home settings ) CPAP O2 (L/min or FiO2) 21 Chaz Colindres [facility] - 11/28/2017 8:08 AM CDT Pharmacy Note - Admission Medication History Pertinent Provider Information: N/A Prior To Admission (BALLOON SANDER) med list completed and updated in EMR. [facility] Med List Medication Sig Note Last Dose [...] 50mg Information source(s): Patient, [facility] Patient was asked about OTC/herbal products specifically. [facility] med list reflects this. Based on the pharmacist???s assessment, the [facility] SANDER med list information appears reliable Allergies were [...] - for htn, dm2 Leandro Curiel, 1955, [facility] Prd Osteoarthritis of knee [M17.10] PCP: Mario Keith MD, Code status: Full Code Extended Emergency Contact Information Primary Emergency Contact: Alisson Curiel [facility] Relation: [id number] Secondary Emergency Contact: Ervin Conner [facility] Relation: Child Assessment and Plan Essential [...] spent 70 min Maria E Russo MD. [facility] medicine service. documented in this encounter Miscellaneous Notes Op Note - Jennifer Arenas MD - 11/28/2017 11:48 AM CDT Operative Report PATIENT: Leandro Curiel DATE OF SURGERY: 11/28/2017 SURGEON Jennifer Arenas MD. EMAIL DESIGNER Joe Strickland PA-C (Expert AUDREY assist was [...] knee with increasing disability. X-rays have shown [id number] degenerative change in the medial compartment. Has [...] City/State/ZIP Code Phon e Number [facility] POCT RESULTS [address] [employer] [facility] [address] [address] Glucose by meter POCT (11/29/2017 7:03 AM CDT) athologist Signature GLUCOSE BY 116 mg/dL 11/29/2017 [facility] METER POCT 7:03 AM CDT [facility] POCT RESULTS Comment: Reference Ranges ? [...] City/State/ZIP Code Phon e Number [facility] POCT RESULTS 1924 [facility] N [address] Hemoglobin A1c (11/29/2017 6:17 AM CDT) P athologist Signature Hemoglobin A1C 6.0 4.2 - 6.1 11/29/2017 HEALTH % 3:11 PM CDT [facility] Specimen Anatomical Collection Method / Collection Time Recei karin Time (Source) Location / Volume Laterality Blood specimen Venipuncture / 11/29/2017 6:17 11/30/19 18 9:36 (specimen) Unknown AM CDT AM CDT Maria E Russo MD LAB - BLOOD ORDERABLES Performing Organization Address City/State/ZIP Code Phon e Number [place] [address] [address] [facility] (ABNORMAL) CBC with platelets (11/29/2017 6:17 AM CDT) Patholo gist Method Time Signature WBC 7.7 4.0 - 11.0 11/29/2017 [facility] thou/uL 6:27 AM CDT [facility] RBC Count 3.65 (L) 4.40 - 11/29/2017 HEALTH 6.20 6:27 AM CDT [facility] mill/uL [facility] Hemoglobin 10.3 (L) 14.0 - 11/29/2017 HEALTH 18.0 g/dL 6:27 AM T [facility] LAB[facility] Hematocrit 30.9 (L) 40.0 - 11/29/2017 HEALTH 54.0 % 6:27 AM CDT [facility] MCV 85 80 - 100 11/29/2017 HEALTH fL 6:27 AM CDT [facility] LABORATORY MCH 28.2 27.0 - 11/29/2017 HEALTH 34.0 pg 6:27 AM CDT [facility] LABOR[facility]ORY MCHC 33.3 32.0 - 11/29/2017 HEALTH 36.0 g/dL 6:27 AM T [facility] LABOR[facility]ORY RDW 13.3 11.0 - 11/29/2017 HEALTH 14.5 % 6:27 AM T [facility] Platelet Count 177 140 - 440 11/29/2017 [facility] thou/uL 6:27 AM T [facility] LABOR[facility] Mean Platelet 9.8 8.5 - 12.5 11/29/2017 HEALTH Volume fL 6:27 AM T [facility] Specimen Anatomical Collection Method / Collection Time Recei karin Time (Source) Location / Volume Laterality Blood specimen Venipuncture / 11/29/2017 6:17 11/30/19 18 6:22 (specimen) Unknown AM CDT AM CDT Maria E Russo MD LAB - BLOOD ORDERABLES Performing Organization Address City/State/ZIP Code Phon e Number [facility] [place] [address] Lab Daniel Howe [address] [place] [address] LABORATORY (ABNORMAL) Basic metabolic panel (11/29/2017 6:17 AM CDT) Analysis Performed At Patho logist Time Signature Sodium 134 (L) 136 - 145 11/29/2017 HEALTH mmol/L 6:42 AM T [facility] LAB[facility]ORY Potassium 4.5 3.5 - 5.0 11/29/2017 HEALTH mmol/L 6:42 AM T [facility] Chloride 99 98 - 107 11/29/2017 HEALTH mmol/L 6:42 AM T [facility] Carbon Dioxide 27 22 - 31 11/29/2017 HEALTH (CO2) mmol/L 6:42 AM T [facility] Anion Gap 8 5 - 18 11/29/2017 HEALTH mmol/L 6:42 AM T [facility] LAB[facility] Glucose 122 70 - 125 11/29/2017 HEALTH mg/dL 6:42 AM T [facility]ORY Calcium 8.8 8.5 - 10.5 11/29/2017 HEALTH mg/dL 6:42 AM T [facility]ORY Urea Nitrogen 7 (L) 8 - 22 11/29/2017 HEALTH mg/dL 6:42 AM T [facility] Creatinine 0.78 0.70 - 11/29/2017 HEALTH 1.30 mg/dL 6:42 AM T [facility] LABORATORY GFR Estimate If >60 >60 11/29/2017 HEALTH Black mL/min/1.7 6:42 AM T [address] LABORATORY GFR Estimate >60 >60 11/29/2017 HEALTH mL/min/1.7 6:[address] LABORATORY Specimen Anatomical Collection Method / Collection Time Recei karin Time (Source) Location / Volume Laterality Blood specimen Venipuncture / 11/29/2017 6:17 11/30/19 18 6:22 (specimen) Unknown AM CDT AM CDT Narrative [facility] LAB - 11/29/2017 6:42 AM CDT Fasting Glucose reference range is 70-99 mg/dL per [employer] Diabetes [employer] (ADA) chay dela cruz. Maria E Russo MD LAB - BLOOD ORDERABLES Performing Organization Address City/State/ZIP Code Phon e Number [facility] [place] [address] [facility] [address] [facility] [address] [address] [facility] [address] [place] [address], [facility] Glucose by meter POCT (11/28/2017 9:09 PM CDT) athologist Signature GLUCOSE BY 96 mg/dL 11/28/2017 [facility] METER POCT 9:09 PM CDT HOSPITAL POCT [...] City/State/ZIP Code Phon e Number [facility] POCT RESULTS [address] [place] N [address] Glucose by meter POCT (11/28/2017 4:59 PM CDT) athologist Signature GLUCOSE BY 105 mg/dL 11/28/2017 [facility] METER POCT 4:59 PM CDT [...] City/State/ZIP Code Phon e Number [facility] POCT RESULTS [address] [employer] [place] [address] Glucose by meter POCT (11/28/2017 11:53 AM CDT) athologist Signature GLUCOSE BY 107 mg/dL 11/28/2017 [facility] METER POCT 11:53 AM CDT [...] City/State/ZIP Code Phon e Number [facility] POCT RESULTS 1924 [facility] N [address] (ABNORMAL) CBC with platelets (11/28/2017 7:46 AM CDT) [facility] gist Method Time Signature WBC 6.6 4.0 - 11.0 11/28/2017 HEALTH thou/uL 7:52 AM CDT [facility] RBC Count 3.84 (L) 4.40 - 11/28/2017 HEALTH 6.20 7:52 AM CDT [facility] mill/uL [facility] Hemoglobin 10.9 (L) 14.0 - 11/28/2017 HEALTH 18.0 g/dL 7:52 AM CDT [facility] Hematocrit 32.4 (L) 40.0 - 11/28/2017 HEALTH 54.0 % 7:52 AM CDT [facility] [employer] MCV 84 80 - 100 11/28/2017 HEALTH fL 7:52 AM CDT [employer] [facility] MCH 28.4 27.0 - 11/28/2017 HEALTH 34.0 pg 7:52 AM CDT [employer] [facility] MCHC 33.6 32.0 - 11/28/2017 HEALTH 36.0 g/dL 7:52 AM CDT [employer] [facility] RDW 13.5 11.0 - 11/28/2017 HEALTH 14.5 % 7:52 AM CDT [facility] Platelet Count 221 140 - 440 11/28/2017 HEALTH thou/uL 7:52 AM CDT [facility] Mean Platelet 9.9 8.5 - 12.5 11/28/2017 [facility] Volume fL 7:52 AM CDT [facility] Specimen Anatomical Collection Method / Collection Time Recei karin Time (Source) Location / Volume Laterality Blood specimen Venipuncture / 11/28/2017 7:46 11/29/19 18 7:50 (specimen) Unknown AM CDT AM CDT Joe Strickland PA-C LAB - BLOOD ORDERABLES Performing Organization Address City/State/ZIP Code Phon e Number [facility] [place] [address] [address] [place], [place] [address] LABORATORY EXTRA GREEN TOP [...] athologist Signature GLUCOSE BY 106 mg/dL 11/28/2017 [facility] METER POCT 7:45 AM CDT [...] City/State/ZIP Code Phon e Number [facility] POCT RESULTS [address] [facility] N [address] LAB RESULT - HIM SCAN (11/28/2017) Narrative [...] leg documented in this encounter Care Teams Receiving Supervisor Relationship Specialty Start Date End Date Mario Keith MD PCP - General Internal Medicine 11/28/17 [facility] [address] [place] [address] documented as of this encounter
--- OUTSIDE RECORDS SUMMARY | 2022-04-05 06:58 | XMS_ITS | Encounter Summary ---
:1955 Author Organization [facility] Address [address] [place] [address] Care Team Providers Name Role Phone Unavailable Primary Care Provider Unavailable Encounter Details Date Type Department Care Team Description 03/08/2009 Historic Notes INTERFACED REPORT Interface, Transcript on, Social History Tobacco Use Types Packs/Day Years Used Date Smoking Tobacco: Never Assessed Sex Assigned at Date Recorded Not on file documented as of this encounter Progress Notes Interface, Advanced Manufacturing Consultant - 08/05/2010 5:32 PM CDT Summary of Progress and Discharge Plan - Summary: Pt's therapist appt is at [facility] in [place] and pt needs to be their at 12:30 to check in and Terrie (therapist) will need to make the referal for med management. - Symptoms to Report: thoughts of suicide, dial 911 - Lifestyle Adjustment: Do not use drugs or alcohol Psychiatry Follow-Up - Therapist: Terrie Rodríguez - Therapist Address: [address] [place] [address]. - Therapist Phone Number: - Therapist Appointment 01:00 Date/Time: Provider Information - Discharged From: [facility] - Unit: 30 - Unit - [...] Avoid alcohol. Resources - Resources Crisis Intervention: 681.976.8593 or [phone] (TTY: 382.350.6063); call anytime for help. National [place] on Mental Illness (www.[place].apryl.org):: 034-870-9904 or 539-723-3770. Signatures BRITTNEE HART (Psychotherapist)[Signed 11:59] Authored: Summary of Progress and Discharge Plan, Psychiatry Follow-Up Mariann Sierra (RN)[Signed 11:45] Authored: Summary of Progress and Discharge Plan, Provider Information, Discharge Teaching Checklist, Resources documented in this encounter Plan of Treatment Not on filedocumented as of this encounter Visit Diagnoses Not on filedocumented in this encounter
--- OUTSIDE RECORDS SUMMARY | 2022-04-05 06:59 | XMS_ITS | Encounter Summary ---
:1955 Author Organization [place] Address [address] [place] [address] Care Team Providers Name Role Phone Unavailable Primary Care Provider Unavailable Encounter Details Date Type Department Care Team Description 10/20/2007 Operative Report [facility] Em Merida MD (Area Safety Manager) [address] Results [address] [place] [address] Social History Tobacco Use Types Packs/Day Years Used Date Smoking Tobacco: Never Assessed Sex Assigned at Date Recorded Not on file documented as of this encounter Progress Notes Em Merida - 10/27/2007 10:29 PM CDT FINAL 1st Asphalt Spreader: Kalpana Becker PA-C PREOPERATIVE DIAGNOSIS: 1. Morbid [...] kera Name: JETT GEORGES MRN: [id number] Account: [id number] : 1955 Procedure Date: 10/20/2007 Document: [id number] documented in this encounter Plan of Treatment Not on filedocumented as of this encounter Visit Diagnoses Not on filedocumented in this encounter
--- OUTSIDE RECORDS SUMMARY | 2022-04-05 06:59 | XMS_ITS | Encounter Summary ---
:1955 Author Organization [place] Address [address] [place] [address] Care Team Providers Name Role Phone Unavailable Primary Care Provider Unavailable Encounter Details Date Type Department Care Team Description 03/03/2009 Historic Notes INTERFACED REPORT Interface, Transcript on, Social History Tobacco Use Types Packs/Day Years Used Date Smoking Tobacco: Never Assessed Sex Assigned at Date Recorded Not on file documented as of this encounter Progress Notes Interface, Stitch Marker - 08/05/2010 5:47 PM CDT General Information [...] - Second Staff (name) Bud Ruano - wagon driver salesperson #1: Leandro Curiel - Relationship to Father patient #1: - Phone 1: [phone] - Patient's spoken language; Turkmen or Bilingual communication style Advance Directive - [...] few days Hospitalization - Primary Care Mario Kelly--[facility] Physician - Do you have none [...] - Do you have yes, 7 yo --non-usp parent but close to responsibility for his [...]
--- OUTSIDE RECORDS SUMMARY | 2022-04-05 06:59 | XMS_ITS | Encounter Summary ---
:1955 Author Organization [place] Address [address] [place] [address] Care Team Providers Name Role Phone Unavailable Primary Care Provider Unavailable Encounter Details Date Type Department Care Team Description 10/20/2007 Historic Results INTERFACED REPORT Alireza Wihte MD [address] [facility] [address] [place] [address] (Wo rk) Social History Tobacco Use Types [...] BLOOD ORDERABLES Performing Organization Address [facility] Phon e Number MISYS (ABNORMAL) Glucose by meter (10/20/2007 1:37 PM CDT) P athologist Signature Glucose 136 (H) 60 - 99 MISYS mg/dL Specimen Anatomical Collection Method Collection Time Receive d Time (Source) Location / / Volume Laterality 10/20/2007 1:37 PM 8 6:15 CDT AM CDT Alireza White MD LAB - BEAKER POCT Performing Organization Address [facility] Phon e Number [facility] (ABNORMAL) Glucose (10/20/2007 6:36 AM CDT) athologist Signature Glucose 125 (H) 60 - 99 [facility] mg/dL Specimen Anatomical Collection Method Collection Time Receive d Time (Source) Location / / Volume Laterality 10/20/2007 6:36 AM 8 6:39 CDT AM CDT Alireza White MD LAB - BLOOD ORDERABLES Performing Organization Address [facility] Phon e Number MISYS Hemoglobin (10/20/2007 6:36 AM CDT) athologist Signature Hemoglobin 14.0 13.3 - 17.7 MIS[facility] g/dL Specimen Anatomical Collection Method Collection Time Receive d Time (Source) Location / / Volume Laterality 10/20/2007 6:36 AM 8 6:39 CDT AM CDT Authorizing Provider Result Yonas White MD LAB - BLOOD ORDERABLES Performing Organization Address [facility] Phon e Number MISYS documented in this encounter Visit Diagnoses Not on filedocumented in this encounter
--- OUTSIDE RECORDS SUMMARY | 2022-04-05 06:59 | XMS_ITS | Encounter Summary ---
:1955 Author Organization [place] Address [address] [place] [address] Care Team Providers Name Role Phone Unavailable Primary Care Provider Unavailable Encounter Details Date Type Department Care Team Description 03/03/2009 Discharge Summary [facility] Blas Cates, (Electronic Page Makeup System Operator) [facility] [address] [facility], [address] [place] [address] (Wo rk) Social History Tobacco Use Types Packs/Day Years Used Date Smoking Tobacco: Never Assessed Sex Assigned at Date Recorded Not on file documented as of this encounter Progress Notes Interface, Electronic Page Makeup System Operator - 03/30/2009 10:58 PM PLATFORM MAN FINAL DISCHARGE DIAGNOSES: AXIS I: 1. Major [...] DO MT: SONYA Name: JETT GEORGES Account: [id number] : 1955 Admit Date: Discharge Date: 03/08/2009 Document: [id number] FORM MAN documented in this encounter Plan of Treatment Not on filedocumented as of this encounter Visit Diagnoses Not on filedocumented in this encounter
--- OUTSIDE RECORDS SUMMARY | 2022-04-05 06:59 | XMS_ITS | Encounter Summary ---
:1955 Author Organization [place] Address [address] [place] [address] Care Team Providers Name Role Phone Unavailable Primary Care Provider Unavailable Encounter Details Date Type Department Care Team Description 08/25/2007 Historic Notes INTERFACED REPORT Interface, Transcript onMD Social History Tobacco Use Types Packs/Day Years Used Date Smoking Tobacco: Never Assessed Sex Assigned at Date Recorded Not on file documented as of this encounter Progress Notes Interface, Mill Worker - 08/07/2010 12:05 AM CDT BARIATRIC [...]
--- OUTSIDE RECORDS SUMMARY | 2022-04-05 06:59 | XMS_ITS | Encounter Summary ---
:1955 Author Organization [place] Address [facility] [place] [address] Care Team Providers Name Role Phone Unavailable Primary Care Provider Unavailable Encounter Details Date Type Department Care Team Description 04/07/2007 Consultation [facility] Madhu Toney MD [address] [facility] [place] [phone] (Wo rk) Social History Tobacco Use Types Packs/Day Years Used Date Smoking Tobacco: Never Assessed Sex Assigned at Date Recorded Not on file documented as of this encounter Progress Notes Madhu Toney - 05/20/2007 9:06 PM ELECTRONIC MASKING SYSTEM OPERATOR FINAL CHIEF COMPLAINT: Sleep apnea, reflux, hyperlipidemia, [...] include diet pills over 30 years ago, [id number] diets, exercise. His attempts for weight loss, [...] one who had it done down in [place]. The patient is setting up his appointment [...] kathi Name: JETT GEORGES MRN: [id number] Account: [id number] : 1955 Consult Date: 04/07/2007 Document: [id number] TRONIC MASKING SYSTEM OPERATOR documented in this encounter Plan of Treatment Not on filedocumented as of this encounter Visit Diagnoses Not on filedocumented in this encounter
--- OUTSIDE RECORDS SUMMARY | 2022-04-05 06:59 | XMS_ITS | Encounter Summary ---
:1955 Author Organization [place] Address [address] [place] [address] Care Team Providers Name Role Phone Unavailable Primary Care Provider Unavailable Encounter Details Date Type Department Care Team Description 10/20/2007 Historic Notes INTERFACED REPORT Interface, Transcript onMD Social History Tobacco Use Types Packs/Day Years Used Date Smoking Tobacco: Never Assessed Sex Assigned at Date Recorded Not on file documented as of this encounter Progress Notes Interface, Technical Support Specialist - 08/06/2010 9:30 PM CDT General Information - How to be addressed Leandro - slot floor person to Gabriella Foster (sister) notify: - Phone 1: [phone] - slot floor person #2: Leandro Curiel (father) - Phone 1: [phone] - slot floor person #3: Nusrat Vera (friend) - Phone 1: [phone] - Patient's Spoken Language, [place] Islander communication style Advance Directive - Do you [...] Considerations - Developmental None Learning Considerations - Yazdanism Learning None Considerations Activity-Exercise/Self Care - Ambulation [...] life Values/Beliefs/Spiritual Care - F: Catherine: Does Restorationist culture/spirituality/ mandaen play an important part in your life? - Would you like Does not wish to have anyone contacted pastoral care/clergy/customer advisor specialist notified? Mutuality/Individual Preferences - What information none [...] Tolerance, Values/Beliefs/Spiritual Care, Mut uality/Individual Preferences Interface, Technical Support Specialist - 08/06/2010 9:27 PM CDT Bariatric [...]
--- OUTSIDE RECORDS SUMMARY | 2022-04-05 06:59 | XMS_ITS | Encounter Summary ---
:1955 Author Organization [place] Address [address] [place] [address] Care Team Providers Name Role Phone Unavailable Primary Care Provider Unavailable Encounter Details Date Type Department Care Team Description 10/21/2007 Historic Results INTERFACED REPORT Alireza White MD [address] [facility] [address] [place] [address] (Wo rk) Social History Tobacco Use Types [...] SANTOS - BELELO POCT Performing Organization Address [facility] Phon e Number MISYS (ABNORMAL) Glucose by meter (10/21/2007 6:04 PM CDT) P athologist Signature Glucose 111 (H) 60 - 99 MISYS mg/dL Specimen Anatomical Collection Method Collection Time Receive d Time (Source) Location / / Volume Laterality 10/21/2007 6:04 PM 8 CDT 10:46 PM CDT Alireza SANTOS - BEAKER POCT Performing Organization Address [facility] Phon e Number MISYS (ABNORMAL) Glucose by meter (10/21/2007 11:35 AM CDT) P athologist Signature Glucose 134 (H) 60 - 99 MISYS mg/dL Specimen Anatomical Collection Method Collection Time Receive d Time (Source) Location / / Volume Laterality 10/21/2007 11:35 10/21/2007 AM CDT 10:46 PM CDT Alireza SANTOS - BELELO POCT Performing Organization Address [facility] Phon e Number MISYS (ABNORMAL) Hemoglobin (10/21/2007 10:05 AM CDT) P athologist Signature Hemoglobin 12.1 (L) 13.3 - 17.7 MISYS g/dL Specimen (Source) Anatomical Collection Method Collection Time Re ceived Time Location / / Volume Laterality 10/21/2007 10:05 10/21/2007 AM CDT Kalpana Ram PA-C LAB - BLOOD ORDERABLES Performing Organization Address [facility] Phon e Number MISYS [...]
--- OUTSIDE RECORDS SUMMARY | 2022-04-05 06:59 | XMS_ITS | Encounter Summary ---
:1955 Author Organization [place] Address [address] [place] [address] Care Team Providers Name Role Phone Unavailable Primary Care Provider Unavailable Encounter Details Date Type Department Care Team Description 11/12/2007 Historic Notes INTERFACED REPORT Interface, Transcript onMD Social History Tobacco Use Types Packs/Day Years Used Date Smoking Tobacco: Never Assessed Sex Assigned at Date Recorded Not on file documented as of this encounter Progress Notes Interface, Trend Investigator - 08/06/2010 8:24 PM CDT BARIATRIC PROGRESS [...]
--- OUTSIDE RECORDS SUMMARY | 2022-04-05 06:59 | XMS_ITS | Encounter Summary ---
:1955 Author Organization [place] Address [address] [place] [address] Care Team Providers Name Role Phone Unavailable Primary Care Provider Unavailable Encounter Details Date Type Department Care Team Description 10/22/2007 Historic Notes INTERFACED REPORT Interface, Transcript on, Social History Tobacco Use Types Packs/Day Years Used Date Smoking Tobacco: Never Assessed Sex Assigned at Date Recorded Not on file documented as of this encounter Progress Notes Interface, Psychotherapist Counselor - 08/06/2010 9:23 PM CDT Discharge Planning - Discharge From: [facility] - Patient Care Unit: Station [...] Dr. White call: - Phone number of [facility] [phone] patient should call: Other Discharge Education, Materials, [...] Materials, and Instructions, Follow Up Care Interface, Psychotherapist Counselor - 08/06/2010 9:23 PM CDT BARIATRIC SURGERY [...]
--- OUTSIDE RECORDS SUMMARY | 2022-04-05 06:59 | XMS_ITS | Encounter Summary ---
:1955 Author Organization [place] Address [address] [facility] [place] [address] Care Team Providers Name Role Phone Unavailable Primary Care Provider Unavailable Encounter Details Date Type Department Care Team Description 10/21/[address] [facility] Kalpana Ram, [facility] AUDREY Results SURGICAL CONSULT [facility] CARL [address] [facility] [address] [place] [address] (Wo rk) Social History Tobacco Use Types Packs/Day Years Used Date Smoking Tobacco: Never Assessed Sex Assigned at Date Recorded Not on file documented as of this encounter Plan of Treatment Not on filedocumented as of this encounter Procedures Procedure Name Priority Date/Time Associated Diagnosis Comme [facility] UPPER GI W/O KUB Routine [...]
--- NOTE | 2022-04-05 15:14 | MR_ITS ---
Patient: JETT GEORGES Facility:?[facility] Patient ID:?[id number] Site Patient ID:?[id number]. Site :?1955 Study:?MRI-Knee Right W/O-04/05/2022 4:39:32 PM Ordering Physician:Jerome Diaz Final Report: ADDENDUM: Please note, technique should read: Noncontrast MRI of the right KNEE. Metal artifact reduction techniques were employed. CRL:jj HISTORY: Aftercare following knee joint replacement surgery. Partial knee replacement. TECHNIQUE: Noncontrast MRI of the right hip. Metal artifact reduction techniques were employed. COMPARISON: 08/06/2012. FINDINGS: Medial compartment: The patient is status post unicompartmental medial joint space replacement. - Lateral compartment: Lateral meniscus: Intact. Articular cartilage: Maintained. - Patellofemoral compartment: Minor patellar osteophyte formation. There is mild thinning of the patellar articular surface (grade 1/2). 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 - Ligaments: Anterior and posterior cruciate ligaments are intact. The medial collateral ligament is intact. The proximal fibular collateral ligament is abnormal related to degeneration or chronic partial tearing. The iliotibial band and distal biceps femoris tendon are intact. - Extensor mechanism: The distal quadriceps tendon and patellar tendon are intact. Medial and lateral patellar restraints are intact. Slight lateral patellar subluxation. No patella leigh. - Joint space: Large joint effusion with synovitis. - Bones and soft tissues: There is no acute fracture. There is synovitis within the popliteus tendon sheath. 3.5 cm process associated with the popliteus muscle on image #32 of series 3 appears new from the prior MRI. Considerations include complex ganglion, hematoma, tophus or pseudotumor from particle disease. There is no acute fracture. No osteomyelitis. There is fluid within the semimembranosus/MCL bursa compatible with bursitis. IMPRESSION: 1. Unicompartmental medial joint space replacement, right knee. No periprosthetic fracture or definite osteolysis. 2. Large knee joint effusion with synovitis. 3. There is a complex process associated with the popliteus muscle with differential considerations including complex ganglion, hematoma, tophus or pseudotumor related to particle disease. 4. Semimembranosus/mcl bursitis. 5. 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 The other knee ligaments are intact. 6. Limited chondromalacia within the patellofemoral compartment. Dictated by Samy Barnes MD @ 04/09/2022 8:41:39 AM Signed by: Samy Barnes @ 04/09/2022 8:41:39 AM (Electronic Signature) Signed by:Ethan Barnes MD @04/11/2022 3:29:13 PM (Electronic Signature)
--- OUTSIDE RECORDS SUMMARY | 2022-04-05 15:25 | XMS_ITS | Encounter Summary ---
:1955 Author Organization [place] Address [address] [place] [address]. 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
--- OUTSIDE RECORDS SUMMARY | 2022-04-05 15:25 | XMS_ITS | Encounter Summary ---
:1955 Author Organization [place] Address [address] [place] [address] Care Team Providers Name Role Phone Mario Keith MD Primary Care Provider Reason for Referral Consultation (Routine) Specialty Diagnoses / Procedures Referred By Contact Refer red To Contact Senthil Zhao MD [address] [place] [address] Referral ID Status Reason Start Date Expiration Date Visits Requ ested Visits [facility]ized [facility] (Routine) Specialty Diagnoses / Procedures Referred By Contact Refer red To Contact Senthil Zhao MD [address] [place] [address] Referral ID Status Reason Start Date Expiration Date Visits Requ ested Visits Authorized [facility] Health Therapies & Aides (Routine) Specialty Diagnoses / Procedures Referred By Contact Refer red To Contact Senthil Zhao MD [address] [place] [address] Referral ID Status Reason Start Date Expiration Date Visits Requ ested Visits Authorized Reason for Visit Reason Comments One-sided Weakness Auth/Cert Specialty Diagnoses / Procedures Referred By Contact Refer red To Contact EMERGENCY MEDICINE Diagnoses Acute right-sided weakness Acute right-sided weakness Emergency Dept [address] [place] [address] Phone: Fax: Referral ID Status Reason Start Date Expiration Date Visits Requ ested Visits Authorized [id number] 1 1 Encounter Details Date Type Department Care Team Description 03/03/2021 - Emergency [facility] Deandre Alvarez Cla, MD [facility] OA [address] [place], [place] [id number] 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) (Primary Dx); 03/06/2021 [place] [address] Medical Sandeep Nunez DO [address] [place] [address] Acute right-sided weakness; Surgical Romaine Eng MD [address] [place] [address] JUSTIN (generalized anxiety disorder); [address] [facility] [place] [address] Social History Tobacco Use Types [...] Zhao MD - 03/06/2021 3:38 PM CDT [facility] Discharge Summary Hospitalist Date of [...] I, or a nurse practitioner or physician's assistant laboratory director working with me, had a cjvx-ry-eenr encounter that meets the physician bqld-bn-reyy encounter requirements with this patient on: 03/05/2021. [...] effort and are for medical reasons or restorationism services or infrequently or of short duration when for other reasons) because: Patient is bedbound due to: fall risk, unsteady gait. Based on the above findings. I certify that this patient is confined to the home and needs intermittent intermediate care, physical therapy and/or speech therapy. The patient is under my care, and susana initiated the establishment of the plan of care. This patient will be followed by a physician who will periodically review the plan of care. Physician/Provider to provide follow up care: Mario Keith Attending [facility] physician (the Medicare certified [place] provider): Senthil Zhao MD Physician Signature: See [...] next 24-48 hours, Please call them at [phone] documented in this encounter Medications at Time [...] EMG. 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/OT CARGO SERVICE AGENT Discharge DME: N/A Discharge Transportation: family or friend will provide Private pay costs discussed: Not applicable Education Provided on the Discharge Plan: yes Persons Notified of Discharge Plans: PT Patient/Family in Agreement with the Plan: yes Handoff Referral Completed: Yes Additional Information: 03/05/21 1100 [facility] ([facility] [phone] fax [phone]) PT able to d.c home today Will [...] Adds Type of Visit Initial PT Evaluation Crutch Maker Crutch Maker Present no Language [place] Islander Living Environment People in home alone Current [...] Living Environment Comments Pt. lives alone in [facility] with bedroom upstairs and railing on [...] alone Current Living Arrangements other (see comments) ([address] [place] [address]) Home Accessibility stairs to enter home;stairs within home Number of Stairs, Main Entrance 2 Stair Railings, Main Entrance railing on right side (ascending) Number of Stairs, Within Home, Primary greater than 10 stairs Stair Railings, Within Home, Primary railing on right side (ascending) Transportation Anticipated car, drives self;family or friend will provide Living Environment Comments Pt. lives alone in [facility] with bedroom upstairs and railing on [...] of Daily Living BADL Assessment toileting Toileting [place] Level (Toileting) supervision;set up;assist of 2;moderate assist [...] Needs Upon Discharge (OT) gait belt;raised toilet seat;box office clerk;shower chair;tub bench;commode chair Risk & Benefits of [...] UE strength. Pt. lives alone in two [facility] with 2 stairs to enter and [...] from the original note were not included. [facility] Hospitalist Progress Note Admit 03/03/2021 9:44 AM Name: Jett Georges II Provider: Romaine Eng MD, [facility] Date of Service: 03/04/2021 Reason for Stay [...] ?? #Hypertension-blood pressure stable for now, resume APARTMENT LEASING AGENT lisinopril 20 mg, ?? #Anxiety-depression --Per pharmacy records he is on Zoloft daily, Seroquel 200 mg nightly, lorazepam as needed --Given his grogginess I will resume his Zoloft and APARTMENT LEASING AGENT Seroquel for now but hold off on [...] Holder PA-C - 03/03/2021 2:41 PM CDT [facility] Admission History and Physical Examination NAME: Jett [...] repeat #Hypertension-blood pressure stable for now, resume APARTMENT LEASING AGENT lisinopril 20 mg, #Anxiety-depression --Per pharmacy records he is on Zoloft daily, Seroquel 200 mg nightly, lorazepam as needed --Given his grogginess I will resume his Zoloft and APARTMENT LEASING AGENT Seroquel for now but hold off on [...] ARTHROPLASTY ; Surgeon: Joseph Ramesh MD; Location: [facility]; Service: Orthopedics ??? GASTRIC BYPASS ??? HERNIA [...] plaque. There is no stenosis or dissection. [place]: There is some mild calcific [...] -- TROPONIN <0.015 -- Carli Holder PA-C [facility] Medicine March 03, 2021 Securely message with the archify Console (learn more here) Text page via 123ContactForm Paging/Directory Associated attestation - Sandeep Nunez DO [...] AM CDTAssociated Order(s): ORTHOPEDIC SURGERY IP CONSULT [facility] Orthopedic Consultation Jett Georges II Age: [...] ARTHROPLASTY ; Surgeon: Joseph Ramesh MD; Location: [facility]; Service: Orthopedics ??? GASTRIC BYPASS ??? HERNIA [...] plaque. There is no stenosis or dissection. [place]: There is some mild calcific [...] EXAM: MR CERVICAL SPINE W/O CONTRAST LOCATION: [facility] DATE/TIME: 03/05/2021 10:42 AM INDICATION: Cervical [...] Negative Ketones Urine Negative Negative mg/dL Specific [place] Urine 1.017 1.003 - 1.035 Blood Urine [...] Range Hold Specimen JIC Extra Green Top ([place] Heparin) Tube Status: None Result Value Ref [...] or clinical presentation suggests COVID-19. [facility] are certified under the Clinical [...] QT 394 ms QTc 462 ms P Selmer 69 degrees R AXIS -72 degrees T Selmer 19 degrees Interpretation ECG Sinus rhythm with 1st degree A-V block with occasional Premature ventricular complexes Left anterior fascicular block Abnormal ECG No previous ECGs available Neurology IP Consult: General (non-stroke/non-ICU); Patient to be seen: Routine - within 24 hours; right arm weakness, palsy?; Cantilever Crane Operator may enter orders: Yes; Requesting provider? [...] ARTHROPLASTY ; Surgeon: Joseph Ramesh MD; Location: [facility]; Service: Orthopedics ??? GASTRIC BYPASS ??? HERNIA [...] symmetric movements. MOTOR: Tone is difficult to retort forker, pain or difficulty relaxing complicate the assessment [...] without Contrast Praful Gaytan MD (general neurology) [facility] [phone] 1. Acute right-sided weakness Care Management / Social Work IP Consult Status: None () Narrative Sandhya Heath, SHAREPOINT APPLICATION DEVELOPER 03/04/2021 3:22 PM Care Management Initial Consult General Information Assessment completed with: Patient, Type of CM/SW Visit: Initial Assessment Primary Care Provider verified and updated as needed: Readmission within the last 30 days: no previous admission in last 30 days Reason for Consult: discharge planning Communication Assessment Patient's communication style: spoken language ([place]er or Bilingual) Hearing Difficulty or Deaf: no [...] Gatherings with Friends and Family: ??? Attends [employer] Services: ??? Active Member of Clubs or [...] find to accept referral SW went to [email or web address] web site.. Called home care agencies but had to navigate through call box wirer services SW was able to find [facility] [phone] . Requested PT/OT CARGO SERVICE AGENT support for pt. They could provide start of care on Saturday Will fax face sheet and H&P over today and final d.c orders tomorrow Pt stated he will call his son for a ride home tomorrow. 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 Hospitalist (if different from attending physician... Status: None () Narrative Jairo Buckley PA-C 03/05/2021 4:01 PM [facility] Neurosurgery Consultation Date of Admission: [...] up with further consultation recommendations. Jairo Howe [facility] Neurosurgery [address] [place] [address] Pager [phone] Code Status Full Code Reason for Consult [...] ARTHROPLASTY ; Surgeon: Joseph Ramesh MD; Location: [facility]; Service: Orthopedics ??? GASTRIC BYPASS ??? HERNIA [...] Status --------- ------ CBC with platelets and d...[[id number]] Abnormal Final result Please view results for these tests on the individual orders. Extra Tube ([place] Draw) Status: None Narrative The following orders were created for panel order Extra Tube ([place] Draw). Procedure Abnormality Status --------- ------ Extra Blue Top Tube[[id number]] Final result Extra Green Top ([place]...[[id number]] Final result Extra Purple Top Tube[[id number]] Final result Please view results for these [...] CDTAssociated Order(s): SPINE SURGERY ADULT IP CONSULT [facility] Neurosurgery Consultation Date of Admission: [...] consultation recommendations. Jairo Buckley PA-C [facility] Neurosurgery [place] [address] Pager [phone] Code Status Full Code Reason for Consult [...] ARTHROPLASTY ; Surgeon: Joseph Ramesh MD; Location: [facility]; Service: Orthopedics ??? GASTRIC BYPASS ??? HERNIA [...] personally see this patient today. Sandhya Heath, SHAREPOINT APPLICATION DEVELOPER - 03/04/2021 3:22 PM CDTAssociated Order(s): CARE MANAGEMENT / SOCIAL WORK IP CONSULT Care Management Initial Consult General Information Assessment completed with: Patient, Type of CM/SW Visit: Initial Assessment Primary Care Provider verified and updated as needed: Readmission within the last 30 days: no previous admission in last 30 days Reason for Consult: discharge planning Communication Assessment Patient's communication style: spoken language ([place]er or Bilingual) Hearing Difficulty or Deaf: no [...] Gatherings with Friends and Family: ??? Attends [employer] Services: ??? Active Member of Clubs or [...] find to accept referral SW went to [email or web address] web site.. Called home care agencies but had to navigate through call box wirer services SW was able to find [facility] [phone] . Requested PT/OT CARGO SERVICE AGENT support for pt. They could provide start [...] ARTHROPLASTY ; Surgeon: Joseph Ramesh MD; Location: [facility]; Service: Orthopedics ??? GASTRIC BYPASS ??? HERNIA [...] symmetric movements. MOTOR: Tone is difficult to retort forker, pain or difficulty relaxing complicate the assessment [...] Contrast Praful Gaytan MD (general neurology) pgr [phone] 1. Acute right-sided weakness documented in this encounter ED Notes Bhavesh Lynn RN - 03/03/2021 12:16 PM CDT [facility] ED Nurse Handoff Report Jett Georges II is a 65 year old male ED Chief complaint: One-sided Weakness . ED Diagnosis: Final diagnoses: Acute right-sided weakness Allergies: Allergies Allergen Reactions ??? Zyban [Bupropion Hydrobromide] Hives Code Status: Full Code Activity level - Baseline/Home: Independent. Activity Level - Current: Assist X 1. Lift room needed:No. Bariatric: No Crutch Maker Needed: No Isolation: No. Infection: Not Applicable. [...] or clinical presentation suggests COVID-19. [facility] are certified under the Clinical [...] Status --------- ------ CBC with platelets and d...[[id number]] Abnormal Final result Please view results for these tests on the individual orders. EXTRA TUBE Narrative: The following orders were created for panel order Extra Tube ([place] Draw). Procedure Abnormality Status --------- ------ Extra Blue Top Tube[[id number]] Final result Extra Green Top ([place]...[[id number]] Final result Extra Purple Top Tube[[id number]] Final result Please view results for these [...] Unable to fully extend the right wrist. Knowledge Engineer strength 5/5 and symmetric bilaterally. Left upper [...] Status --------- ------ CBC with platelets and d...[[id number]] Abnormal Final result Please view results for these tests on the individual orders. EXTRA TUBE Narrative: The following orders were created for panel order Extra Tube ([place] Draw). Procedure Abnormality Status --------- ------ Extra Blue Top Tube[[id number]] Final result Extra Green Top ([place]...[[id number]] Final result Extra Purple Top Tube[[id number]] Final result Please view results for these [...] care of Dr. Nunez. Impression & Plan [facility] Diagnoses: The patient has stroke symptoms: [...] hypoglycemia (or hyperglycemia), head or spinal trauma, ICU RN infection, Toxin ingestion and shock state (e.g. [...] goal(s). See goals on Care Plan in [facility] electronic health record for goal details. [...] UE strength. Pt. lives alone in two [facility] with 2 stairs to enter and [...] from the original note were not included. [facility] OUTPATIENT PHYSICAL THERAPY EVALUATION PLAN OF TREATMENT FOR OUTPATIENT REHABILITATION (COMPLETE FOR INITIAL CLAIMS ONLY) Patient's Last Name, First Name, M.I. Date of : 1955 Jett Georges Provider's Name [facility] Onset Date: 03/03/21 Start of Care Date: 03/04/2021 Type: _X_PT ___OT ___SLP Medical Diagnosis: R-sided weakness PT Diagnosis: Impaired fn mobility Visits from SOC: 1 _ Plan of Treatment/Functional Goals Planned Interventions: bed mobility training, balance training, patient/family education, stair training, strengthening, gait training, neuromuscular re- education, stretching, transfer training Goals: See Physical Therapy Goals on Care Plan in [facility] electronic health record. Therapy Frequency: Daily Predicted Duration of Therapy Intervention: 3 days _ I CERTIFY THE NEED FOR THESE SERVICES FURNISHED UNDER THIS PLAN OF TREATMENT AND WHILE UNDER MY CARE (Physician co-signature of this document indicates review and certification of the therapy plan). , Referring Physician: Sandeep Nunez, DO Initial Assessment See Physical Therapy evaluation dated in [facility] electronic health record. Associated attestation - Romaine Eng MD - 03/04/2021 6:08 PM CDT I CERTIFY THE NEED FOR THESE SERVICES FURNISHED UNDER THIS PLAN OF TREATMENT AND WHILE UNDER MY CARE (Physician co-signature of this document indicates review and certification of the therapy plan). Utilization Review - Nikki Gonzalez MD - 03/04/2021 12:10 PM CDT [facility] Admission Status; Secondary Review Determination Admission Date: [...] Sincerely, Nikki Gonzalez MD MPH Utilization Review [facility]. Plan of Care - Amelia Kiran [...] Medication History - Varinder Daniels [facility] - 03/03/2021 2:10 PM CDT Admission medication history interview status for this patient is complete. See [facility] admission navigator for allergy information, prior to admission medications and immunization status. Medication history interview done, indicate source(s): Patient Medication history resources (including written lists, pill bottles, clinic record):[id number] [place], [place] - [address] [address] Changes made to APARTMENT LEASING AGENT medication list: Added: all meds Changed: trazodone 75 mg TID -> at bedtime Reported as Not Taking: none Removed: none Actions taken by pharmacist (provider contacted, etc):left sticky note for provider Additional medication history information: - Patient may have confused trazodone with tramadol and took about 10 tramadol tablets in total yesterday. - The current medication list was completed to the best of writer editor's ability using available resources (e.g. [employer] dispensing [...] City/State/ZIP Code Phon [place] [address] Care Lab [address] Lab (1st floor, no room number) [...] in clude each brachial plexus in the oojsi-uv-okqu. JOHN HAWTHORNE MD SYSTEM ID: ??[id number] Narrative 03/06/2021 2:48 PM CDT MRI OF [...] in clude each brachial plexus in the [id number]-jc-qmvq. JOHN HAWTHORNE MD SYSTEM ID: [id number] Veronica Murrell PA-C IMG MRI ORDERABLES (ABNORMAL) [...] Address City/State/ZIP Code [place] [address] Care Lab [address] Lab (1st floor, no room number) [...] HANNAH - ENEDINA POCT Performing Organization Address City/[facility]/ZIP Code [place] [address] Care Lab [address] Lab (1st floor, no room number) [...] Address City/State/ZIP Code [place] [address] Care Lab [address] Lab (1st floor, no room number) [...] City/State/ZIP Code Ph[place] [address] Care Lab [address] Lab [...] Unknown CDT AM CDT Sandeep Nunez DO [employer] POCT Performing Organization Address City/[facility]/ZIP Code [place] [address] Care Lab [address] Lab (1st floor, no room number) [...] LAB - BEAKER POCT Performing Organization Address City/[facility]/ZIP Code [place] [address] Care Lab [address] Lab (1st floor, no room number) [...] LAB - BEAKER POCT Performing Organization Address City/[facility]/ZIP Code [place] [address] Care Lab [address] Lab (1st floor, no room number) [...] LAB - BEAKER POCT Performing Organization Address City/[facility]/ZIP Code [place] [address] Care Lab [address] Lab (1st floor, no room number) [...] City/State/ZIP Code [place] [address] Care Lab [address] Lab (1st floor, no room number) [...] City/State/ZIP Code [place] [address] Care Lab [address] Lab (1st floor, no room number) [...] City/State/ZIP Code [place] [address] Care Lab [address] Lab (1st floor, no room number) (ABNORMAL) Basic metabolic panel (03/04/2021 8:02 AM CDT) [facility] Method Time Signature Sodium 132 (L) [...] LAB - BLOOD ORDERABLES Performing Organization Address City/[facility]/[place] [address] Care [address] Lab (1st floor, no room number) [...] LAB - BEAKER POCT Performing Organization Address City/[facility]/ZIP Code [place] [address] Care Lab [address] Lab (1st floor, no room number) [...] LAB - BEAKER POCT Performing Organization Address City/[facility]/ZIP Code [place] [address] Care Lab [address] Lab (1st floor, no room number) [...] LAB - BLOOD ORDERABLES Performing Organization Address City/[facility]/ZIP Code [place] [address] Care Lab [address] Lab (1st floor, no room number) [...] LAB - BLOOD ORDERABLES Performing Organization Address City/[facility]/ZIP Code [place] [address] Care Lab [address] Lab (1st floor, no room number) [...] Code Phon e Number [place] [address] Care Lab [address] Lab (1st floor, no room number) [...] LAB - BEAKER POCT Performing Organization Address City/[facility]/ZIP Code Phon e Number [place] [address] Care Lab [address] Lab (1st floor, no room number) [...] LAB - BLOOD ORDERABLES Performing Organization Address City/[facility]/ZIP [facility] [place]on [place] [phone] Care Lab [address] Lab (1st floor, no room number) [...] LAB - BLOOD ORDERABLES Performing Organization Address City/[facility]/ZIP Code [place] [address] Care Lab [address] Lab (1st floor, no room number) [...] LAB - BLOOD ORDERABLES Performing Organization Address City/[facility]/ZIP [place] [address] Care Lab [address] Lab (1st floor, no room number) [...] clinical presentation sugges ts COVID-19. ??[facility] [employer] are certified under the Clinical Laborat ory Improvement Amendments of 1988 (CLIA-88) as qualified to perform moderate and/or high complexity laboratory testing. Deandre Alvarez MD LAB - MICRO GENERAL ORDERABL ES Performing Organization Address City/State/ZIP Code [place] [phone] Care Lab [address] [facility] Lab (1st floor, no room number) (ABNORMAL) UA with Microscopic reflex to Culture (03/03/2021 11:03 AM CDT) [facility] Method Time Signature Color Urine Light Colorless, 03/03/2021 LABORATORY Yellow Straw, 11:28 AM Light CDT Yellow, Yellow Appearance Urine Clear Clear 03/03/2021 LABORATOR Y 11:28 AM CDT Glucose Urine 150 (A) Negative 03/03/2021 LABORATORY mg/dL 11:28 AM CDT Bilirubin Urine Negative Negative 03/03/2021 LABORATORY 11:28 AM CDT Ketones Urine Negative Negative 03/03/2021 LABORATORY mg/dL 11:28 AM CDT Specific [place] 1.017 1.003 - 03/03/2021 LABORATOR Y Urine [...] Address City/State/ZIP Code [place] [phone] Care Lab [address] Lab (1st floor, no room number) [...] plaque. There is no stenosis or dissection. [place]: There is some mild tracee [...] plaque. There is no stenosis or dissection. [place]: There is some mild tracee [...] mastoid air cells are clear. Procedure Note uJan Leal MD - 03/03/2021Form atting of this [...] RESULTS QTc 462 ms RADIOLOGY RESULTS P Selmer 69 degrees RADIOLOGY RESULTS R AXIS -72 degrees RADIOLOGY RESULTS T [place] 19 degrees RADIOLOGY RESULTS Interpretation Sinus rhythm [...] (ABNORMAL) Lipid Profile (03/03/2021 9:58 AM CDT) [facility] gist Method Time Signature Cholesterol 152 [...] Organization Address City/State/[place] [phone] Care Lab [address] Lab (1st floor, no room number) [...] Organization Address City/State/[place] [address] Care [address] Lab (1st floor, no room number) [...] Address City/State/ZIP Code [place] [address] Care [address] Lab (1st floor, no room number) [...] LAB - BLOOD ORDERABLES Performing Organization Address City/[facility]/[place] [address] Care Lab [address] Lab (1st floor, no room number) [...] Organization Address City/State/[place] [address] Care Lab [address] Lab (1st floor, no room number) Extra Green Top ([place] Heparin) Tube (03/03/2021 9:58 AM CDT) P athologist Signature Hold Specimen JIC 03/03/2021 [facility] 11:18 AM CDT Specimen Anatomical Collection Method / Collection Time Recei karin Time (Source) Location / Volume Laterality Blood STRUCTURE OF LEFT Venipuncture / 03/03/2021 9:58 03/03 UPPER LIMB / Unknown AM CDT 10:07 AM CDT Unknown Deandre Alvarez MD LAB - BLOOD ORDERABLES Performing Organization Address City/[facility]/ZIP Code [facility] [place] [address] Care Lab [address] Lab (1st floor, no room number) [...] Organization Address City/State/[place] [address] Care [address] Lab (1st floor, no room number) (ABNORMAL) CBC with platelets and differential (03/03/2021 9:58 AM CDT) [facility] gist Method Time Signature WBC Count [...] LAB - BLOOD ORDERABLES Performing Organization Address City/[facility]/ZIP Code [place] [phone] Care Lab [address] Lab (1st floor, no room number) [...] LAB - BLOOD ORDERABLES Performing Organization Address City/[facility]/ZIP Code [place] [phone] Care Lab [address] Lab (1st floor, no room number) [...] LAB - BLOOD ORDERABLES Performing Organization Address City/[facility]/ZIP Code [place] [address] Care Lab [address] Lab (1st floor, no room number) [...] LAB - BLOOD ORDERABLES Performing Organization Address City/[facility]/ZIP Code [place] [address] Care Lab [address] Lab (1st floor, no room number) [...] Address City/State/ZIP Code [place] [address] Care Lab [address] Lab (1st floor, no room number) [...] City/State/ZIP Code [place] [address] Care Lab [address] Lab [...] 1914, Administer intramuscular if an intravenous ro inupiat is not available and notify provider when [...] 1914, Administer intramuscular if an intravenous ro inupiat is not available and notify provider when [...] Lynn RN) 0856 (Given - Provider: Bhavesh yLnn RN) 0801 (Given - Provider: Elaine Bonner [...] stools.
documented in this encounter Care Teams Tube Heater Relationship Specialty Start Date End Date Mario Keith MD PCP - General Internal Medicine 11/28/17 [facility] [address] [place] [address] documented as of this encounter
--- OUTSIDE RECORDS SUMMARY | 2022-04-05 15:25 | XMS_ITS | Encounter Summary ---
:1955 Author Organization [place] Address [address] [place] [address] Care Team Providers Name Role Phone Mario Keith MD Primary Care Provider [phone] Encounter Details Date Type Department Care Team Description 07/20/2020 Telephone [facility] [address] [place] [address] Social History Tobacco Use Types [...] call back if he changes his mind. 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 He's heard that he can get a lap band on top of it... I explained the unlikeliness of that. But also that you might discuss a revision. 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
--- OUTSIDE RECORDS SUMMARY | 2022-04-05 15:25 | XMS_ITS | Clinical Summary ---
:1955 Author Organization [place] Address [address] [place] [address] Care Team Providers Name Role Phone Mario Keith MD Primary Care Provider [phone] Allergies Active Allergy Reactions Severity Noted Date [...] this topic Medical Devices Implanted Type Area Flame Cutting Supervisor Device Shelf Model / Identifier Expiration Serial / Date Lot Cement Bone Simplex Hv 40g W/O Gentra Cement, N/A: YVON 04/18/2019 [id number] / Implanted: Qty: 2 on 11/28/2017 Bone Knee ORTHOPEDICS / [id number] Description: Implanted into bilateral kn ees Persona Partial Knee System Partial Bárbara cular Surface Left Medial Size J 8mm Thickness Total Joint Left: [employer] 08/17/2021 [id number] / Implanted: Qty: 1 on 11/28/2017 Component/Insert Knee / [id number] Procedures Procedure Name Priority Date/Time Associated Diagnosis [...] Growth MARI 03/26/2022 [facility] IDD 7:29 AM [facility] Specimen Anatomical Collection Method Collection Time Receive d Time (Source) Location / / Volume Laterality Synovial fluid STRUCTURE OF RIGHT Non-blood 03/21/2022 2:45 PM 1 05/21/2021 4:34 KNEE REGION / Collection / CDT PM CDT Unknown Unknown Joe Strickland PA-C LAB - MICRO GENERAL ORDERABL ES Performing Organization Address City/State/ZIP Code Phon e Number [facility] IDD LABORATORY [facility] [place] [address] Diag. Lab [address] [facility], Room D297 Gram Stain (03/21/2022 2:45 PM [...] Code Phon e Number [facility] IDD LABORATORY [facility] [place] [address] Diag. Lab [address] [facility], Room D297 Anaerobic Bacterial Culture Routine (03/21/2022 2:45 PM CDT) Patholo gist Method Time Signature Culture No anaerobic MARI 04/04/2022 [facility] IDD organisms 11:36 AM [facility] isolated Specimen Anatomical Collection Method Collection Time Receive d Time (Source) Location / / Volume Laterality Synovial fluid STRUCTURE OF RIGHT Non-blood 03/21/2022 2:45 PM 1 05/21/2021 4:34 KNEE REGION / Collection / CDT PM CDT Unknown Unknown Joe Strickland PA-C LAB - MICRO GENERAL ORDERABL ES Performing Organization Address City/State/ZIP Code Phon e Number UU IDD LABORATORY [facility] [place] [place] [address] Diag. Lab [address] [facility], Room D297 from Last 3 Months Insurance Payer Benefit Plan / Subscriber ID Effective Phone Address T ype Group Dates [place] [id number] 2018-Prese [phone] [address] [id number] Indemnity nt 00 [place] [address] MEDICARE MEDICARE [id number] 2012-Pres [phone] ATTN JONI MS Medicare ent 40 [address] [place] [address] Advance Directives For more information, please contact: [phone] Latest Code Status on File Code Status Date Activated Date Inactivated Comments Full Code 03/03/2021 3:38 PM 03/06/2021 6:26 PM All basic and advanced life-sustaining interventions are performed as oj ropriate Question Answer Comments Code status determined by: Discussion with patient/ legal de cision maker Care Teams Printed Circuit Boards Inspector Relationship Specialty Start Date End Date Mario Keith MD PCP - General Internal Medicine 11/28/17 [facility] [address] [place] [address]
--- OUTSIDE RECORDS SUMMARY | 2022-04-05 15:25 | XMS_ITS | Encounter Summary ---
:1955 Author Organization [place] Address [facility] [place] [address] Care Team Providers Name Role Phone Mario Keith MD Primary Care Provider [phone] Encounter Details Date Type Department Care Team Description 11/28/2017 - Hospital Encounter [facility], Prim keya osteoarthritis 11/29/2017 [facility], [address] [facility] ORTHOPAEDICS [place], [place] [address] [facility] [address] [address] [address] [place], [place] [id number] Social History Tobacco Use Types Packs/Day Years [...] at discharge: Leandro Curiel Home Medication Instructions JESUSITA:[id number] Printed on:11/29/17 1430 Medication Information acetaminophen (TYLENOL) [...] well controlled with oral pain medication Marion Roamno PA-C [facility] Maria E Russo MD - 11/29/2017 [...] spent 35 min Maria E Russo MD. [facility] medicine service Selam Overton RT - 11/28/2017 3:13 PM CDT 11/28/17 1512 NPPV Other SpO2 96 % CPAP CPAP Pt. Owned Device Yes;Clean;Functional (does not bleed in oxygen or use humidity, home unit ) CPAP Pressure (cmH2O) (home settings ) CPAP O2 (L/min or FiO2) 21 Chaz Colindres [facility] - 11/28/2017 8:08 AM CDT Pharmacy Note - Admission Medication History Pertinent Provider Information: N/A Prior To Admission (TEASEL GIG OPERATOR) med list completed and updated in EMR. TEASEL GIG OPERATOR Med List Medication Sig Note Last [...] 50mg Information source(s): Patient, [facility] Patient was asked about OTC/herbal products specifically. TEASEL GIG OPERATOR med list reflects this. Based on the pharmacist???s assessment, the TEASEL GIG OPERATOR med list information appears reliable Allergies [...] - for htn, dm2 Leandro Curiel, 1955, [facility] Prd Osteoarthritis of knee [M17.10] PCP: Mario Keith MD, Code status: Full Code Extended Emergency Contact Information Primary Emergency Contact: Alisson Curiel [facility] Relation: Wfldpdlu-Wu-Nov Secondary Emergency Contact: Ervin Conner [facility] [...] spent 70 min Maria E Russo MD. [facility] medicine service. documented in this encounter Miscellaneous Notes Op Note - Jennifer Arenas MD - 11/28/2017 11:48 AM CDT Operative Report PATIENT: Leandro Curiel DATE OF SURGERY: 11/28/2017 SURGEON Jennifer Arenas MD. WIPING CLOTH CUTTER Joe Strickland PA-C (Expert AUDREY assist was [...] knee with increasing disability. X-rays have shown orft-dl-cawv degenerative change in the medial compartment. Has [...] [facility] POCT RESULTS 1924 [employer] [facility] N [address] Glucose by meter POCT (11/29/2017 7:03 AM CDT) athologist Signature GLUCOSE BY 116 mg/dL 11/29/2017 [facility] METER POCT 7:03 AM CDT [facility] POCT RESULTS Comment: Reference Ranges ? [...] [facility] POCT RESULTS 1924 [facility] N [address] Hemoglobin A1c (11/29/2017 6:17 AM CDT) P athologist Signature Hemoglobin A1C 6.0 4.2 - 6.1 11/29/2017 HEALTH % 3:11 PM CDT [facility] Specimen Anatomical Collection Method / Collection Time Recei karin Time (Source) Location / Volume Laterality Blood specimen Venipuncture / 11/29/2017 6:17 11/30/19 18 9:36 (specimen) Unknown AM CDT AM CDT Maria E Russo MD LAB - BLOOD ORDERABLES Performing Organization Address City/State/ZIP Code Phon [place] [address] [address] [facility] (ABNORMAL) CBC with platelets (11/29/2017 6:17 AM CDT) Patholo gist Method Time Signature WBC 7.7 4.0 - 11.0 11/29/2017 [facility] thou/uL 6:27 AM CDT [facility] RBC Count 3.65 (L) 4.40 - 11/29/2017 HEALTH 6.20 6:27 AM CDT [facility] mill/uL [facility] Hemoglobin 10.3 (L) 14.0 - 11/29/2017 HEALTH 18.0 g/dL 6:27 AM T [facility] Hematocrit 30.9 (L) 40.0 - 11/29/2017 HEALTH 54.0 % 6:27 AM CDT [facility] MCV 85 80 - 100 11/29/2017 HEALTH fL 6:27 AM CDT [facility] LABORATORY MCH 28.2 27.0 - 11/29/2017 HEALTH 34.0 pg 6:27 AM CDT [facility] LAB[facility] MCHC 33.3 32.0 - 11/29/2017 HEALTH 36.0 g/dL 6:27 AM T [facility] LAB[facility] RDW 13.3 11.0 - 11/29/2017 HEALTH 14.5 % 6:27 AM T [facility] Platelet Count 177 140 - 440 11/29/2017 [facility] thou/uL 6:27 AM T [facility] Mean Platelet 9.8 8.5 - 12.5 11/29/2017 HEALTH Volume fL 6:27 AM T [facility] Specimen Anatomical Collection Method / Collection Time Recei karin Time (Source) Location / Volume Laterality Blood specimen Venipuncture / 11/29/2017 6:17 11/30/19 18 6:22 (specimen) Unknown AM CDT AM CDT Maria E Russo MD LAB - BLOOD ORDERABLES Performing Organization Address City/State/ZIP Code Phon e Number [facility] [place] [address] Lab Daniel Howe [address] [place] [place] [address] LABORATORY (ABNORMAL) Basic metabolic panel (11/29/2017 6:17 AM CDT) Analysis Performed At Patho logist Time Signature Sodium 134 (L) 136 - 145 11/29/2017 HEALTH mmol/L 6:42 AM T [facility] Potassium 4.5 3.5 - 5.0 11/29/2017 HEALTH mmol/L 6:42 AM T [facility] Chloride 99 98 - 107 11/29/2017 HEALTH mmol/L 6:42 AM T [facility] Carbon Dioxide 27 22 - 31 11/29/2017 HEALTH (CO2) mmol/L 6:42 AM T [facility] Anion Gap 8 5 - 18 11/29/2017 HEALTH mmol/L 6:42 AM T [facility] Glucose 122 70 - 125 11/29/2017 HEALTH mg/dL 6:42 AM T [facility] Calcium 8.8 8.5 - 10.5 11/29/2017 HEALTH mg/dL 6:42 AM T [facility] Urea Nitrogen 7 (L) 8 - 22 11/29/2017 HEALTH mg/dL 6:42 AM T [facility] Creatinine 0.78 0.70 - 11/29/2017 HEALTH 1.30 mg/dL 6:42 AM T [facility] LAB[facility] GFR Estimate If >60 >60 11/29/2017 HEALTH Black mL/min/1.7 6:42 AM T [address] LABORATORY GFR Estimate >60 >60 11/29/2017 HEALTH mL/min/1.7 6:[address] LABORATORY Specimen Anatomical Collection Method / Collection Time Recei karin Time (Source) Location / Volume Laterality Blood specimen Venipuncture / 11/29/2017 6:17 11/30/19 18 6:22 (specimen) Unknown AM CDT AM CDT Narrative [facility] LAB - 11/29/2017 6:42 AM CDT Fasting Glucose reference range is 70-99 mg/dL per [place] Diabetes [employer] (ADA) chay dela cruz. Maria E Russo MD LAB - BLOOD ORDERABLES Performing Organization Address City/State/ZIP Code Phon e Number [facility] [place] [address] [facility] [address] [facility] [address] [facility][1][place] [address] [address] [facility] [address] [facility] [address] [address], [facility] Glucose by meter POCT (11/28/2017 9:09 PM CDT) athologist Signature GLUCOSE BY 96 mg/dL 11/28/2017 [facility] METER POCT 9:09 PM CDT HOSPITAL POCT [...] [facility] POCT RESULTS [address] [place] N [address] Glucose by meter POCT (11/28/2017 4:59 PM CDT) athologist Signature GLUCOSE BY 105 mg/dL 11/28/2017 [facility] METER POCT 4:59 PM CDT HOSPITAL POCT [...] [facility] POCT RESULTS [address] [employer] [place] [address] Glucose by meter POCT (11/28/2017 11:53 AM CDT) athologist Signature GLUCOSE BY 107 mg/dL 11/28/2017 [facility] METER POCT 11:53 AM CDT HOSPITAL POCT [...] [facility] POCT RESULTS 1924 [facility] N [address] (ABNORMAL) CBC with platelets (11/28/2017 7:46 AM CDT) [facility] gist Method Time Signature WBC 6.6 4.0 - 11.0 11/28/2017 HEALTH thou/uL 7:52 AM CDT [facility] RBC Count 3.84 (L) 4.40 - 11/28/2017 HEALTH 6.20 7:52 AM CDT [employer] mill/uL [facility] Hemoglobin 10.9 (L) 14.0 - 11/28/2017 HEALTH 18.0 g/dL 7:52 AM CDT [facility] Hematocrit 32.4 (L) 40.0 - 11/28/2017 HEALTH 54.0 % 7:52 AM CDT [facility] MCV 84 80 - 100 11/28/2017 HE[facility] fL 7:52 AM CDT [facility] MCH 28.4 27.0 - 11/28/2017 HEALTH 34.0 pg 7:52 AM CDT [facility] MCHC 33.6 32.0 - 11/28/2017 HEALTH 36.0 g/dL 7:52 AM CDT [facility] RDW 13.5 11.0 - 11/28/2017 HEALTH 14.5 % 7:52 AM CDT [facility] Platelet Count 221 140 - 440 11/28/2017 HEALTH thou/uL 7:52 AM CDT [facility] Mean Platelet 9.9 8.5 - 12.5 11/28/2017 [facility] Volume fL 7:52 AM CDT [facility] Specimen Anatomical Collection Method / Collection Time Recei karin Time (Source) Location / Volume Laterality Blood specimen Venipuncture / 11/28/2017 7:46 11/29/19 18 7:50 (specimen) Unknown AM CDT AM CDT Joe Strickland PA-C LAB - BLOOD ORDERABLES Performing Organization Address City/State/ZIP Code Phon e Number [facility] [place] [address] [address] [place], [place] [address] LABORATORY EXTRA GREEN TOP [...] athologist Signature GLUCOSE BY 106 mg/dL 11/28/2017 [facility] METER POCT 7:45 AM CDT HOSPITAL POCT [...] [facility] POCT RESULTS 1924 [facility] N [address] LAB RESULT - HIM SCAN (11/28/2017) Narrative [...] leg documented in this encounter Care Teams Grinder Set Up Operator External Relationship Specialty Start Date End Date Mario Keith MD PCP - General Internal Medicine 11/28/17 [facility] [address] [place] [address] documented as of this encounter
--- OUTSIDE RECORDS SUMMARY | 2022-04-05 15:25 | XMS_ITS | Clinical Summary ---
:1955 Author Organization [employer] [employer] Address [place] [address] Care Team Providers Name Role Phone Mario [...] Christophe Vargas PA 01/11/2022 Telephone Vivienne Crisostomo, MACHINIST AUTOMOTIVE CPAP M PABLO from Last 3 Months [...] 180.3 cm (5' 11) 07/23/2014 1:14 PM FOOD SERVICE ATTENDANT Body Mass Index 40.03 07/23/2014 1:14 PM FOOD SERVICE ATTENDANT Plan of Treatment Health Maintenance Due Date [...] Group MEDICARE PART A MEDICARE PART A [id number] 2013-Prese ATTN: CLAIMS - HB USE ONLY HB ONLY nt [address] [facility] [place] [address] MEDICARE PART B MEDICARE PART B [id number] 2012-Prese ATTN: CLAIMS - HB USE ONLY HB ONLY nt [address] [facility] [address] MEDICARE - PB MEDICARE PB [id number] 2018-Presen ATTN : CLAIMS USE ONLY ONLY t [address] [facility] [address] BLUE CROSS BLUE CROSS OF [id number] 2018-Presen [address] [place] [address] BLUE CROSS BLUE CROSS [id number] 2016-Presen [place] [address] [address] [place] t [facility] ONLY [address] Advance Directives Latest Code Status on File Code Status Date Activated Date Inactivated Comments Full Code 01/04/2013 5:51 PM 01/05/2013 5:36 PM Care Teams Svp Monetization Relationship Specialty Start Date End Date Mario Keith MD PCP - General Family Practice 07/06/101999 [place], [place] [id number]
--- OUTSIDE RECORDS SUMMARY | 2022-04-05 15:26 | XMS_ITS | Encounter Summary ---
:1955 Author Organization [place] Address [address] [place] [address] Care Team Providers Name Role Phone Unavailable Primary Care Provider Unavailable Encounter Details Date Type Department Care Team Description 03/07/2009 Historic Notes INTERFACED REPORT Interface, Transcript onMD Social History Tobacco Use Types Packs/Day Years Used Date Smoking Tobacco: Never Assessed Sex Assigned at Date Recorded Not on file documented as of this encounter Progress Notes Interface, Traveling Freight Agent - 08/05/2010 5:35 PM CDT General Information - Has NOT attended OT 13:00 as of: Plan - Plan: Continue to invite to groups to assess. ESTER Nicholson (MILLER)[Signed 12:38] Authored: General Information, Plan documented in this encounter Plan of Treatment Not on filedocumented as of this encounter Visit Diagnoses Not on filedocumented in this encounter
--- OUTSIDE RECORDS SUMMARY | 2022-04-05 15:26 | XMS_ITS | Encounter Summary ---
:[address] Address [address] [place] [address] Care Team Providers Name Role Phone Unavailable Primary Care Provider Unavailable Reason for Visit Reason Onset Date Comments Clinic Care Coordination - Initial 02/27/2016 Encounter Details Date Type Department Care Team Description 02/27/2016 Telephone General Surgery Gaby Sanford, Clinic Care [facility] RN Coordination - Initial 4th Floor [address] [address] [place], [place] [phone] (Wo rk) Social History Tobacco Use Types Packs/Day Years Used Date Smoking Tobacco: Never Assessed Sex Assigned at Date Recorded Not on file documented as of this encounter Miscellaneous Notes Telephone Encounter - Gaby Sanford RN - 02/27/2016 3:25 PM CDT Referral from [employer] website. Patient has history of RYGB, would not be a candidate for the intragastric balloon. Encourage patient to set up appt for medical weight management. Contact information given. documented in this encounter Plan of Treatment Not on filedocumented as of this encounter Visit Diagnoses Not on filedocumented in this encounter
--- OUTSIDE RECORDS SUMMARY | 2022-04-05 15:26 | XMS_ITS | Encounter Summary ---
:1955 Author Organization [place] Address [address] [place] [address] Care Team Providers Name Role Phone Unavailable Primary Care Provider Unavailable Encounter Details Date Type Department Care Team Description 10/20/2007 Historic Notes INTERFACED REPORT Interface, Transcript onMD Social History Tobacco Use Types Packs/Day Years Used Date Smoking Tobacco: Never Assessed Sex Assigned at Date Recorded Not on file documented as of this encounter Progress Notes Interface, Air Chipper - 08/06/2010 9:30 PM CDT General Information - How to be addressed Leandro - salesperson corsets to Gabriella Foster (sister) notify: - Phone 1: [phone] - salesperson corsets #2: Leandro Curiel (father) - Phone 1: [phone] - salesperson corsets #3: Nusrat Vera (friend) - Phone 1: [phone] - Patient's Spoken Language, Israeli communication style Advance Directive - Do you [...] Considerations - Developmental None Learning Considerations - Restorationism Learning None Considerations Activity-Exercise/Self Care - Ambulation [...] life Values/Beliefs/Spiritual Care - F: Catherine: Does Holiness culture/spirituality/ gnosticism play an important part in your life? - Would you like Does not wish to have anyone contacted pastoral care/clergy/advisory internship notified? Mutuality/Individual Preferences - What information none [...] Tolerance, Values/Beliefs/Spiritual Care, Mut uality/Individual Preferences Interface, Air Chipper - 08/06/2010 9:27 PM CDT Bariatric Consult [...]
--- OUTSIDE RECORDS SUMMARY | 2022-04-05 15:26 | XMS_ITS | Encounter Summary ---
:1955 Author Organization [place] Address [address] [place] [address] Care Team Providers Name Role Phone Unavailable Primary Care Provider Unavailable Encounter Details Date Type Department Care Team Description 03/03/2009 Historic Timber Management Professor [facility] Stewart DO [facility] [address] [facility], [address] [place] [address] (Wo rk) Social History Tobacco Use Types Packs/Day Years Used Date Smoking Tobacco: Never Assessed Sex Assigned at Date Recorded Not on file documented as of this encounter Progress Notes Interface, Timber Management Professor - 04/24/2011 7:16 AM CCIE FINAL CHIEF COMPLAINT: My family was concerned about me. HISTORY OF PRESENT ILLNESS: Jett Georges is a 53-year-old white male who presented to [facility], [place], secondary to increased depression. The patient also states that he was hoping to come into the hospital so he could get on disability. Patient does report a 3-year history of depression and anxiety. He states that it all started when he stopped smoking. He states that he recently talked to a miniature set constructor and the miniature set constructor has convinced him that it was all [...] patient states that he grew up in [place], [place]. He did graduate from high school. [...] coordination are all within normal limits. DIAGNOSES: Rancocas I: Major depressive disorder, recurrent, severe without psychotic features. Benzodiazepine dependency and possible alcohol abuse. Rancocas II: Deferred. Rancocas III: As per Internal Medicine. Rancocas IV: Poor insight into his mental health issues. Rancocas V: GAF: 40. PLAN AND RECOMMENDATIONS: At this time will adjust his antidepressant medications. Will take him off his Ativan with a phenobarbital taper. Will use Seroquel to help control his anxiety. Will get the patient connected with outpatient psychiatry and therapy. Electronically signed on 03/30/2009 22:52 by BLAS CATES DO MT: niecy Name: JETT GEORGES Account: [id number] : 1955 Admitted: [id number] Document: [id number] documented in this encounter Plan of Treatment Not on filedocumented as of this encounter Visit Diagnoses Not on filedocumented in this encounter
--- OUTSIDE RECORDS SUMMARY | 2022-04-05 15:26 | XMS_ITS | Encounter Summary ---
:1955 Author Organization [place] Address [facility] [place] [address] Care Team Providers Name Role Phone Unavailable Primary Care Provider Unavailable Encounter Details Date Type Department Care Team Description 04/07/[address] [facility] Madhu Toney MD [address] [facility] [place] [phone] (Wo rk) Social History Tobacco Use Types Packs/Day Years Used Date Smoking Tobacco: Never Assessed Sex Assigned at Date Recorded Not on file documented as of this encounter Progress Notes Madhu Toney - 05/20/2007 9:06 PM GROUND INSTRUCTOR ADVANCED FINAL CHIEF COMPLAINT: Sleep apnea, reflux, hyperlipidemia, [...] include diet pills over 30 years ago, [id number] diets, exercise. His attempts for weight loss, [...] one who had it done down in [place]. The patient is setting up his appointment [...] kathi Name: JETT GEORGES MRN: [id number] Account: [id number] : 1955 Consult Date: 04/07/2007 Document: [id number] ND INSTRUCTOR ADVANCED documented in this encounter Plan of Treatment Not on filedocumented as of this encounter Visit Diagnoses Not on filedocumented in this encounter
--- OUTSIDE RECORDS SUMMARY | 2022-04-05 15:26 | XMS_ITS | Encounter Summary ---
:1955 Author Organization [place] Address [address] [place] [address] Care Team Providers Name Role Phone Unavailable Primary Care Provider Unavailable Encounter Details Date Type Department Care Team Description 10/20/2007 Historic Results INTERFACED REPORT Alireza White MD [address] [facility] [address] [place] [address] (Wo rk) Social History Tobacco Use Types [...] LAB - BLOOD ORDERABLES Performing Organization Address [facility] Phon e Number MISYS (ABNORMAL) Glucose by meter (10/20/2007 1:37 PM CDT) P athologist Signature Glucose 136 (H) 60 - 99 MISYS mg/dL Specimen Anatomical Collection Method Collection Time Receive d Time (Source) Location / / Volume Laterality 10/20/2007 1:37 PM 8 6:15 CDT AM CDT Alireza White MD LAB - BEAKER POCT Performing Organization Address [facility] Phon e Number MISYS (ABNORMAL) Glucose (10/20/2007 6:36 AM CDT) athologist Signature Glucose 125 (H) 60 - 99 MISYS mg/dL Specimen Anatomical Collection Method Collection Time Receive d Time (Source) Location / / Volume Laterality 10/20/2007 6:36 AM 8 6:39 CDT AM CDT Alireza White MD LAB - BLOOD ORDERABLES Performing Organization Address [facility] Phon e Number MISYS Hemoglobin (10/20/2007 6:36 AM CDT) athologist Signature Hemoglobin 14.0 13.3 - 17.7 MISYS g/dL Specimen Anatomical Collection Method Collection Time Receive d Time (Source) Location / / Volume Laterality 10/20/2007 6:36 AM 8 6:39 CDT AM CDT Authorizing Provider Result Yonas White MD LAB - BLOOD ORDERABLES Performing Organization Address [facility] Phon e Number MISYS documented in this encounter Visit Diagnoses Not on filedocumented in this encounter
--- OUTSIDE RECORDS SUMMARY | 2022-04-05 15:26 | XMS_ITS | Encounter Summary ---
:1955 Author Organization [place] Address [address] [place] [address] Care Team Providers Name Role Phone Unavailable Primary Care Provider Unavailable Encounter Details Date Type Department Care Team Description 03/07/2009 Historic Results [facility] [address] [place] [address], [address] [place] [address] (Wo rk) Social History Tobacco Use Types [...]
--- OUTSIDE RECORDS SUMMARY | 2022-04-05 15:26 | XMS_ITS | Encounter Summary ---
:1955 Author Organization [place] Address [facility] [place] [address] Care Team Providers Name Role Phone Mario Keith MD Primary Care Provider [phone] Encounter Details Date Type Department Care Team Description 06/20/2012 Abstract M [facility] Weight MichaelErica loazno, [facility] Ed lexis PA-C [address] [facility] [address] [place] [address] [place] [id number] [phone] Social History Tobacco Use Types Packs/Day Years Used Date Smoking Tobacco: Never Assessed Sex Assigned at Date Recorded Not on file documented as of this encounter Plan of Treatment Not on filedocumented as of this encounter Visit Diagnoses Not on filedocumented in this encounter Care Teams Spanisher Relationship Specialty Start Date End Date Mario Keith MD PCP - General Internal Medicine 11/28/17 [facility] [address] [place] [address] documented as of this encounter
--- OUTSIDE RECORDS SUMMARY | 2022-04-05 15:26 | XMS_ITS | Encounter Summary ---
:1955 Author Organization [place] Address [address] [place] [address] Care Team Providers Name Role Phone Unavailable Primary Care Provider Unavailable Encounter Details Date Type Department Care Team Description 03/07/2009 Historic Notes INTERFACED REPORT David Minaya MD [facility] [address] [facility] [place] [address] (Wo rk) Social History Tobacco [...]
--- OUTSIDE RECORDS SUMMARY | 2022-04-05 15:26 | XMS_ITS | Encounter Summary ---
:1955 Author Organization [place] Address [address] [place] [address] Care Team Providers Name Role Phone Unavailable Primary Care Provider Unavailable Encounter Details Date Type Department Care Team Description 03/03/2009 Historic Notes INTERFACED REPORT Interface, Transcript on, Social History Tobacco Use Types Packs/Day Years Used Date Smoking Tobacco: Never Assessed Sex Assigned at Date Recorded Not on file documented as of this encounter Progress Notes Interface, Blood Donor Recruiter Supervisor - 08/05/2010 5:47 PM CDT General Information [...] - Second Staff (name) Bud Ruano - salesperson parts #1: Leandro Curiel - Relationship to Father patient #1: - Phone 1: [phone] - Patient's spoken language; Singaporean or Bilingual communication style Advance Directive - [...] few days Hospitalization - Primary Care Mario Kelly--[facility] Physician - Do you have none restrictions [...]
--- OUTSIDE RECORDS SUMMARY | 2022-04-05 15:26 | XMS_ITS | Encounter Summary ---
:1955 Author Organization [place] Address [address] [facility] [place] [address] Care Team Providers Name Role Phone Unavailable Primary Care Provider Unavailable Encounter Details Date Type Department Care Team Description 10/21/2007 Results Only [facility] Kalpana Ram, [facility] AUDREY Results SURGICAL CONSULT [facility] CARL [address] [facility] [address] [place] [address] (Wo rk) Social History Tobacco Use Types Packs/Day Years Used Date Smoking Tobacco: Never Assessed Sex Assigned at Date Recorded Not on file documented as of this encounter Plan of Treatment Not on filedocumented as of this encounter Procedures Procedure Name Priority Date/Time Associated Diagnosis Comme [facility] UPPER GI W/O KUB Routine 10/21/2007 [...]
--- OUTSIDE RECORDS SUMMARY | 2022-04-05 15:26 | XMS_ITS | Encounter Summary ---
:1955 Author Organization [place] Address [address] [place] [address] Care Team Providers Name Role Phone Unavailable Primary Care Provider Unavailable Encounter Details Date Type Department Care Team Description 11/12/2007 Historic Notes INTERFACED REPORT Interface, Transcript onMD Social History Tobacco Use Types Packs/Day Years Used Date Smoking Tobacco: Never Assessed Sex Assigned at Date Recorded Not on file documented as of this encounter Progress Notes Interface, Cpc - 08/06/2010 8:24 PM CDT BARIATRIC PROGRESS [...]
--- OUTSIDE RECORDS SUMMARY | 2022-04-05 15:26 | XMS_ITS | Encounter Summary ---
:1955 Author Organization [place] Address [address] [place] [address] Care Team Providers Name Role Phone Mario Keith MD Primary Care Provider [phone] Encounter Details Date Type Department Care Team Description 11/27/2017 [facility] [place] [address] [place] [address] [place], [place] [phone] Social History Tobacco Use Types Packs/Day Years [...] sitting Prep: ChloraPrep Patient monitoring: heart rate, classroom monitor, continuous pulse ox and blood pressure [...] pressure, heart rate, continuous pulse oximetry and classroom monitor Laterality: right Injection technique: ultrasound guided [...] pressure, heart rate, continuous pulse oximetry and classroom monitor Laterality: left Injection technique: ultrasound guided [...] on filedocumented in this encounter Care Teams Spooler Rubber Strand Relationship Specialty Start Date End Date Mario Keith MD PCP - General Internal Medicine 11/28/17 [facility] [address] [place] [address] documented as of this encounter
--- OUTSIDE RECORDS SUMMARY | 2022-04-05 15:26 | XMS_ITS | Encounter Summary ---
:1955 Author Organization [place] Address [address] [place] [address] Care Team Providers Name Role Phone Unavailable Primary Care Provider Unavailable Encounter Details Date Type Department Care Team Description 03/04/2009 Consultation [facility] Results [facility] [address] [facility] [place] [address] (Wo rk) Social History Tobacco [...] extremities intact grossly in all 4 extremities, agricultural engineering technologist is 5/5 bilaterally. LABORATORY DATA: His comprehensive metabolic battery was normal with the exception of glucose whichis elevated to 210. His TSH was 2.8. His GGT was 48. Records from [facility] indicated his CBC was normal, and [...] STUDENT MT: dougie Name: JETT GEORGES Account: [id number] : 1955 Consult Date: 03/04/2009 Document: [id number] cc: Shukri Becker DO documented in this encounter Plan of Treatment Not on filedocumented as of this encounter Visit Diagnoses Not on filedocumented in this encounter
--- OUTSIDE RECORDS SUMMARY | 2022-04-05 15:26 | XMS_ITS | Encounter Summary ---
:1955 Author Organization [place] Address [address] [place] [address] Care Team Providers Name Role Phone Unavailable Primary Care Provider Unavailable Encounter Details Date Type Department Care Team Description 03/04/2009 Historic Notes INTERFACED REPORT Interface, Transcript on, Social History Tobacco Use Types Packs/Day Years Used Date Smoking Tobacco: Never Assessed Sex Assigned at Date Recorded Not on file documented as of this encounter Progress Notes Interface, Field Hauler - 08/05/2010 5:43 PM CDT General Information - Has NOT attended OT 14:00 as of: Plan - Plan: Encourage attendance and participation. ALISHA Vieyra (OTR)[Signed 15:20] Authored: General Information, Plan documented in this encounter Plan of Treatment Not on filedocumented as of this encounter Visit Diagnoses Not on filedocumented in this encounter
--- OUTSIDE RECORDS SUMMARY | 2022-04-05 15:26 | XMS_ITS | Encounter Summary ---
:1955 Author Organization [place] Address [address] [place] [address] Care Team Providers Name Role Phone Unavailable Primary Care Provider Unavailable Encounter Details Date Type Department Care Team Description 10/21/2007 Historic Results INTERFACED REPORT Alireza White MD [address] [facility] [address] [place] [address] (Wo rk) Social History Tobacco Use Types [...] SANTOS - BELELO POCT Performing Organization Address [facility] Phon e Number MISYS (ABNORMAL) Glucose by meter (10/21/2007 6:04 PM CDT) P athologist Signature Glucose 111 (H) 60 - 99 MISYS mg/dL Specimen Anatomical Collection Method Collection Time Receive d Time (Source) Location / / Volume Laterality 10/21/2007 6:04 PM 8 CDT 10:46 PM CDT Alireza SANTOS - BEAKER POCT Performing Organization Address [facility] Phon e Number MISYS (ABNORMAL) Glucose by meter (10/21/2007 11:35 AM CDT) P athologist Signature Glucose 134 (H) 60 - 99 MISYS mg/dL Specimen Anatomical Collection Method Collection Time Receive d Time (Source) Location / / Volume Laterality 10/21/2007 11:35 10/21/2007 AM CDT 10:46 PM CDT Alireza SANTOS - BELELO POCT Performing Organization Address [facility] Phon e Number MISYS (ABNORMAL) Hemoglobin (10/21/2007 10:05 AM CDT) P athologist Signature Hemoglobin 12.1 (L) 13.3 - 17.7 MISYS g/dL Specimen (Source) Anatomical Collection Method Collection Time Re ceived Time Location / / Volume Laterality 10/21/2007 10:05 10/21/2007 AM CDT Kalpana Ram PA-C LAB - BLOOD ORDERABLES Performing Organization Address [facility] Phon e Number MISYS (ABNORMAL) Electrolyte panel [...]
--- OUTSIDE RECORDS SUMMARY | 2022-04-05 15:26 | XMS_ITS | Encounter Summary ---
:1955 Author Organization [place] Address [address] [place] [address] Care Team Providers Name Role Phone Unavailable Primary Care Provider Unavailable Encounter Details Date Type Department Care Team Description 03/04/2009 Historic Notes INTERFACED REPORT David Minaya MD [facility] [address] [facility] [address] [place] [facility] [place] [address] (Wo rk) Social History Tobacco Use Types Packs/Day Years Used Date Smoking Tobacco: Never Assessed Sex Assigned at Date Recorded Not on file documented as of this encounter Progress Notes Graciela Minaya MD - 08/05/2010 5:44 PM CDT ATTENDING PHYSICIAN - Attending Note: I examined the patient and discussed the case with the physician ex assistant/program director student who is severing as a scribe [...]
--- OUTSIDE RECORDS SUMMARY | 2022-04-05 15:26 | XMS_ITS | Encounter Summary ---
:1955 Author Organization [place] Address [address] [place] [address] Care Team Providers Name Role Phone Unavailable Primary Care Provider Unavailable Encounter Details Date Type Department Care Team Description 03/03/2009 Discharge Summary [facility] Blas Cates, (Dressmaker Or Tailor) [facility] [address] [facility], [address] [place] [address] (Wo rk) Social History Tobacco Use Types Packs/Day Years Used Date Smoking Tobacco: Never Assessed Sex Assigned at Date Recorded Not on file documented as of this encounter Progress Notes Interface, Dressmaker Or Tailor - 03/30/2009 10:58 PM BPM SOLUTION ARCHITECT FINAL DISCHARGE DIAGNOSES: AXIS I: 1. Major [...] DO MT: SONYA Name: JETT GEORGES Account: [id number] : 1955 Admit Date: Discharge Date: 03/08/2009 Document: [id number] SOLUTION ARCHITECT documented in this encounter Plan of Treatment Not on filedocumented as of this encounter Visit Diagnoses Not on filedocumented in this encounter
--- OUTSIDE RECORDS SUMMARY | 2022-04-05 15:26 | XMS_ITS | Encounter Summary ---
:1955 Author Organization [place] Address [address] [place] [address] Care Team Providers Name Role Phone Unavailable Primary Care Provider Unavailable Encounter Details Date Type Department Care Team Description 03/08/2009 Historic Results [facility] [address] [place] [address], [address] [place] [address] (Wo rk) Social History Tobacco Use Types [...]
--- OUTSIDE RECORDS SUMMARY | 2022-04-05 15:26 | XMS_ITS | Encounter Summary ---
:1955 Author Organization [place] Address [address] [place] [address] Care Team Providers Name Role Phone Unavailable Primary Care Provider Unavailable Encounter Details Date Type Department Care Team Description 08/25/2007 Historic Notes INTERFACED REPORT Interface, Transcript onMD Social History Tobacco Use Types Packs/Day Years Used Date Smoking Tobacco: Never Assessed Sex Assigned at Date Recorded Not on file documented as of this encounter Progress Notes Interface, Outpatient Coder - 08/07/2010 12:05 AM CDT BARIATRIC FOLLOW [...]
--- OUTSIDE RECORDS SUMMARY | 2022-04-05 15:26 | XMS_ITS | Encounter Summary ---
:1955 Author Organization [place] Address [address] [facility] [place] [address] Care Team Providers Name Role Phone Unavailable Primary Care Provider Unavailable Reason for Visit Reason Onset Date Comments Patient Request 10/23/2012 Encounter Details Date Type Department Care Team Description 10/23/2012 Telephone [facility] Weight Alireza White MD Patient Request Management Clinic Ed lexis [address] [place] [place] [address] [address] [place] [id number] [phone] Social History Tobacco Use Types Packs/Day Years [...]
--- OUTSIDE RECORDS SUMMARY | 2022-04-05 15:26 | XMS_ITS | Encounter Summary ---
:1955 Author Organization [place] Address [address] [place] [address] Care Team Providers Name Role Phone Unavailable Primary Care Provider Unavailable Encounter Details Date Type Department Care Team Description 03/06/2009 Historic Results [facility] [address] [facility], [address] [place] [address] (Wo rk) Social History Tobacco Use Types [...]
--- OUTSIDE RECORDS SUMMARY | 2022-04-05 15:26 | XMS_ITS | Encounter Summary ---
:1955 Author Organization [place] Address [address] [place] [address] Care Team Providers Name Role Phone Unavailable Primary Care Provider Unavailable Encounter Details Date Type Department Care Team Description 03/05/2009 Historic Notes INTERFACED REPORT Davdi Minaya MD [facility] [address] [facility] [address] [place] [address] (Wo rk) Social History Tobacco [...]
--- OUTSIDE RECORDS SUMMARY | 2022-04-05 15:26 | XMS_ITS | Encounter Summary ---
:1955 Author Organization [place] Address [address] [place] [address] Care Team Providers Name Role Phone Unavailable Primary Care Provider Unavailable Encounter Details Date Type Department Care Team Description 10/20/[address] [facility] Em Merida MD (Gift Officer) [address] Results [address] [place] [address] Social History Tobacco Use Types Packs/Day Years Used Date Smoking Tobacco: Never Assessed Sex Assigned at Date Recorded Not on file documented as of this encounter Progress Notes Em Merida - 10/27/2007 10:29 PM CDT FINAL 1st Child Care Coordinator: Kalpana Becker PA-C PREOPERATIVE DIAGNOSIS: 1. Morbid [...] kera Name: JETT GEORGES MRN: [id number] Account: [id number] : 1955 Procedure Date: 10/20/2007 Document: [id number] documented in this encounter Plan of Treatment Not on filedocumented as of this encounter Visit Diagnoses Not on filedocumented in this encounter
--- OUTSIDE RECORDS SUMMARY | 2022-04-05 15:26 | XMS_ITS | Encounter Summary ---
:1955 Author Organization [place] Address [address] [place] [address] Care Team Providers Name Role Phone Unavailable Primary Care Provider Unavailable Encounter Details Date Type Department Care Team Description 03/07/2009 Historic Notes INTERFACED REPORT Blas Cates DO [facility] [address] [facility] [address] [place] [address] (Wo rk) Social History Tobacco Use Types Packs/Day Years Used Date Smoking Tobacco: Never Assessed Sex Assigned at Date Recorded Not on file documented as of this encounter Progress Notes Interface, Telephone Directory Distributor Driver - 08/05/2010 5:36 PM CDT Problem List [...]
--- OUTSIDE RECORDS SUMMARY | 2022-04-05 15:26 | XMS_ITS | Encounter Summary ---
:1955 Author Organization [place] Address [address] [place] [address] Care Team Providers Name Role Phone Unavailable Primary Care Provider Unavailable Reason for Visit Reason Onset Date Comments Abstract 05/28/2017 Encounter Details Date Type Department Care Team Description 05/28/2017 Documentation Only [facility] Erica Rodriguez bstract Surgical Weight Loss Par[facility] [address] [place] [address] [place] [address] [phone] Social History Tobacco Use Types Packs/Day Years Used Date Smoking Tobacco: Never Assessed Sex Assigned at Date Recorded Not on file documented as of this encounter Plan of Treatment Not on filedocumented as of this encounter Visit Diagnoses Not on filedocumented in this encounter
--- OUTSIDE RECORDS SUMMARY | 2022-04-05 15:26 | XMS_ITS | Encounter Summary ---
:1955 Author Organization [place] Address [address] [place] [address] Care Team Providers Name Role Phone Unavailable Primary Care Provider Unavailable Encounter Details Date Type Department Care Team Description 10/22/2007 Historic Notes INTERFACED REPORT Interface, Transcript on, Social History Tobacco Use Types Packs/Day Years Used Date Smoking Tobacco: Never Assessed Sex Assigned at Date Recorded Not on file documented as of this encounter Progress Notes Interface, Upholstered Goods Crafter - 08/06/2010 9:23 PM CDT Discharge Planning - Discharge From: [facility] - Patient Care Unit: Station [address] - [...] Dr. White call: - Phone number of [facility] [phone] patient should call: Other Discharge Education, Materials, [...] Materials, and Instructions, Follow Up Care Interface, Upholstered Goods Crafter - 08/06/2010 9:23 PM CDT BARIATRIC SURGERY [...]
--- OUTSIDE RECORDS SUMMARY | 2022-04-05 15:26 | XMS_ITS | Encounter Summary ---
:1955 Author Organization [facility] Address [address] [place] [address] Care Team Providers Name Role Phone Unavailable Primary Care Provider Unavailable Encounter Details Date Type Department Care Team Description 03/08/2009 Historic Notes INTERFACED REPORT Interface, Transcript on, Social History Tobacco Use Types Packs/Day Years Used Date Smoking Tobacco: Never Assessed Sex Assigned at Date Recorded Not on file documented as of this encounter Progress Notes Interface, Revising Clerk - 08/05/2010 5:32 PM CDT Summary of Progress and Discharge Plan - Summary: Pt's therapist appt is at [facility] in [place] and pt needs to be their at 12:30 to check in and Terrie (therapist) will need to make the referal for med management. - Symptoms to Report: thoughts of suicide, dial 911 - Lifestyle Adjustment: Do not use drugs or alcohol Psychiatry Follow-Up - Therapist: Terrie Rodríguez - Therapist Address: [address] [place] [address]. - Therapist Phone Number: - Therapist Appointment 01:00 Date/Time: Provider Information - Discharged From: [facility] - Unit: 30 - Unit [...] Avoid alcohol. Resources - Resources Crisis Intervention: 764.668.1303 or [phone] (TTY: 300.626.9927); call anytime for help. National [place] on Mental Illness (www.[place].apryl.org):: 445-008-6306 or 256-646-8481. Signatures BRITTNEE HART (Psychotherapist)[Signed 11:59] Authored: Summary of Progress and Discharge Plan, Psychiatry Follow-Up Mariann Sierra (RN)[Signed 11:45] Authored: Summary of Progress and Discharge Plan, Provider Information, Discharge Teaching Checklist, Resources documented in this encounter Plan of Treatment Not on filedocumented as of this encounter Visit Diagnoses Not on filedocumented in this encounter
--- OUTSIDE RECORDS SUMMARY | 2022-04-05 15:26 | XMS_ITS | Encounter Summary ---
:1955 Author Organization [facility] Address [address] [place] [address] Care Team Providers Name Role Phone Unavailable Primary Care Provider Unavailable Reason for Visit Reason Onset Date Comments Pt. Information/instruction 10/27/2012 Other Encounter Details Date Type Department Care Team Description 10/27/2012 Telephone Surgery Clinic Gaby Hicks, Pt. Samaria WAITE Information/instructio Building [address] [facility] [address]; 1st Floor, Clinic [address] [place] [id number] [phone] Social History Tobacco Use Types Packs/Day Years [...] had surgery done with Dr White out [facility] in 2007. 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 Pt has since gained weight back and is wondering about getting the ring surgery done to help him lose weight again. Pt wondering if any of the physicians here will do the ring surgery Pls call pt back to answer questions [phone] Thanks Coordinator talked to patient. Informed patient [...]
--- OUTSIDE RECORDS SUMMARY | 2022-04-05 15:26 | XMS_ITS | Encounter Summary ---
:1955 Author Organization [facility] Address [address] [place] [address] Care Team Providers Name Role Phone Unavailable Primary Care Provider Unavailable Encounter Details Date Type Department Care Team Description 03/05/2009 Historic Results [facility] [address] [facility] [place] [address] (Wo rk) Social History Tobacco Use Types [...]
--- OUTSIDE RECORDS SUMMARY | 2022-04-05 15:26 | XMS_ITS | Encounter Summary ---
:1955 Author Organization [facility] Address [address] [place] [address] Care Team Providers Name Role Phone Unavailable Primary Care Provider Unavailable Encounter Details Date Type Department Care Team Description 03/04/2009 [facility] [address] [facility] [place] [address] (Wo rk) Social History Tobacco Use Types [...] LAB - BLOOD ORDERABLES Performing Organization Address City/[facility]/ZIP Code Phon e Number MISYS Vitamin B12 [...]
== END 2022-04-05 15:11 | disposition home or self-care (01) ==
LOC: MRI 15:10
PROVIDERS: PCP Internal Medicine; Visit Provider Physician Assistant
DX: M25.561 Pain in right knee (principal); M25.461 Effusion, right knee; Z47.1 Aftercare following joint replacement surgery; M70.51 Other bursitis of knee, right knee; M94.261 Chondromalacia, right knee
CPT/HCPCS: 73721

== ENCOUNTER 2022-04-25 09:08 | Outpatient (CLI) | payer MEDICARE, BC, SELFPAY ==
--- OUTSIDE RECORDS SUMMARY | 2022-04-25 09:11 | XMS_ITS | Clinical Summary ---
:1955 Author Organization [facility] [place] [address] Care Team Providers Name Role Phone Mario [...] in December of 2005. Esophageal reflux 04/03/2006 Social History Tobacco Use Types Packs/Day Years [...] 180.3 cm (5' 11) 07/23/2014 1:14 PM EXPORT SALES MANAGER Body Mass Index 40.03 07/23/2014 1:14 PM EXPORT SALES MANAGER Plan of Treatment Health Maintenance Due [...] Group MEDICARE PART A MEDICARE PART A [id number] 2013-Prese ATTN: CLAIMS - HB USE ONLY HB ONLY nt [address] [facility] [place] [place] [address] MEDICARE PART B MEDICARE PART B [id number] 2012-Prese ATTN: CLAIMS - HB USE ONLY HB ONLY nt [address] [facility] [place] [address] MEDICARE - PB MEDICARE PB [id number] 2018-Presen ATTN : CLAIMS USE ONLY ONLY t [address] [facility] [place] [address] BLUE CROSS BLUE CROSS OF [id number] 2018-Presen [address] [place] [address] BLUE CROSS BLUE CROSS [id number] 2016-[place] [address] [address] [place] BLUE t [facility] ONLY [id number] Advance Directives Latest Code Status on File Code Status Date Activated Date Inactivated Comments Full Code 01/04/2013 5:51 PM 01/05/2013 5:36 PM Care Teams Relay Associate Relationship Specialty Start Date End Date Mario Keith MD PCP - General Family Practice 07/06/101999 [place] [address]
--- OUTSIDE RECORDS SUMMARY | 2022-04-25 09:11 | XMS_ITS | Clinical Summary ---
:1955 Author Organization [facility] Address [address] [place] [address] Care Team Providers Name Role Phone Mario Keith MD Primary Care Provider [phone] Allergies Active Allergy Reactions Severity Noted Date Comments Bupropion Hydrobromide Hives 06/20/2012 Medications Medication Sig Dispensed Refills Start End Date Status Date allopurinol Take 1 tablet by 0 A ctive (ZYLOPRIM) 300 MG mouth daily 1 tablet gabapentin Take 900 mg by 0 Acti ve (NEURONTIN) 300 mouth 3 times 1 MG capsule daily lisinopril Take 20 mg by 0 Activ e (ZESTRIL) 20 MG mouth daily 1 tablet metFORMIN Take 500 mg by 0 Activ e (GLUCOPHAGE) 500 mouth 3 times 1 MG tablet daily (with meals) omeprazole Take 40 mg by 0 Activ e (PRILOSEC) 40 MG mouth daily [address] capsule QUEtiapine Take 200 mg by 0 Acti ve (SEROQUEL) 200 MG mouth At Bedtime 1 tablet sertraline Take 50 mg by 0 Activ e (ZOLOFT) 50 MG mouth daily 1 tablet simvastatin Take 20 mg by 0 Acti ve (ZOCOR) 20 MG mouth daily 1 tablet (with dinner) tamsulosin Take 0.4 mg by 0 Acti ve (FLOMAX) 0.4 MG mouth daily 1 capsule traZODone Take 75 mg by 0 Active (DESYREL) 50 MG mouth At Bedtime 1 tablet meloxicam (MOBIC) Take 15 mg by 0 Active 15 MG tablet mouth daily 1 LORazepam Take 0.5 tablets 0 Act gigi (ATIVAN) 1 MG (0.5 mg) by 1 tablet mouth 3 times daily as needed for anxiety apixaban Take 5 mg by 0 Active ANTICOAGULANT mouth 2 times (ELIQUIS) 5 MG daily tablet glimepiride Take 4 mg by 0 Activ e (AMARYL) 4 MG mouth every tablet morning (before breakfast) sitagliptin Take 100 mg by 0 Act gigi (JANUVIA) 100 MG mouth daily tablet semaglutide Inject 1 mg 0 Active (OZEMPIC, 1 Subcutaneous MG/DOSE,) 2 every 7 days MG/1.5ML pen aspirin (ASA) 81 Take 81 mg by 0 04/23/20 Discontinued MG chewable mouth daily 22 (Medic ation tablet Reconcilia tion Clean Up) traMADol (ULTRAM) Take 1-2 tablets 0 04/23 Discontinued 50 MG tablet by mouth every 6 1 22 (Medication hours as needed Ger nciliation for pain Clean Up) Active Problems Problem Noted Date Acute right-sided [...] Date Smoking Tobacco: Former Smokeless Tobacco: Never Tobacco Cessation: Counseling Given: Not Answered Alcohol Use Standard Drinks/Week Comments Not Currently 3 (1 standard drink = 0.6 oz pure alcoho l) Sex Assigned at Date Recorded Not on file Last Filed Vital Signs Vital Sign Reading Time Taken Comments Blood Pressure 187/83 03/06/2021 3:58 PM CDT Pulse 81 03/06/2021 3:58 PM CDT Temperature 37 ??C (98.6 ??F) 03/06/2021 3:58 PM CDT Respiratory Rate 18 03/06/2021 3:58 PM CDT Oxygen Saturation 96% 03/06/2021 3:58 PM CDT Inhaled Oxygen Concentration - - Weight 131.1 kg (289 lb) 04/23/2022 1:00 PM MORTGAGE MANAGER Height 180.3 cm (5' 11) 04/23/2022 1:00 PM MORTGAGE MANAGER Body Mass Index 40.31 04/23/2022 1:00 PM MORTGAGE MANAGER Plan of Treatment Upcoming Encounters Date Type Specialty Care Team Description 05/11/2022 Hospital Encounter Surgery Joseph Ramesh MD [facility] [address] [place], [place] [address] 05/11/2022 Surgery Surgery Domitila, MEDIAL UNICOMPA RTMENTAL MD Joseph ARTHROPLASTY CONVERSION TO DENNISON TOTAL KNEE [facility] [address] [place], [place] [address] Scheduled Procedures Name Priority Associated Diagnoses Date/Time REVISION, TOTAL ARTHROPLASTY, Osteoarthritis of knee 05/11/2022 2:45 PM MORTGAGE MANAGER KNEE Health Maintenance Due Date Last Done Comments [...] this topic Medical Devices Implanted Type Area Groundskeeper Device Shelf Model / Identifier Expiration Serial / Date Lot Cement Bone Simplex Hv 40g W/O Gentra Cement, N/A: [employer] 04/18/2019 [id number] / Implanted: Qty: 2 on 11/28/2017 Bone Knee ORTHOPEDICS / [id number] Description: Implanted into bilateral kn ees Persona Partial Knee System Partial Bárbara cular Surface Left Medial Size J 8mm Thickness Total Joint Left: [employer] 08/17/2021 [id number] / Implanted: Qty: 1 on 11/28/2017 Component/Insert Knee / [id number] Procedures Procedure Name Priority Date/Time Associated Diagnosis Comme nts CELL COUNT WITH Routine 04/10/2022 11:05 Effusion, Results for this DIFFERENTIAL FLUID AM MORTGAGE MANAGER unspecified knee proce dure are in the results section. DIFERENTIAL BODY Routine 04/10/2022 11:05 Effusion, Results for this FLUID AM MORTGAGE MANAGER unspecified knee procedure a re in the results section. CELL COUNT BODY FLUID Routine 04/10/2022 11:05 Effusion, Re sults for this AM MORTGAGE MANAGER unspecified knee procedure a re in the results section. ANAEROBIC BACTERIAL Routine 03/21/2022 2:45 PM Effusion, [...] results section. from Last 3 Months Results Differential Body Fluid (04/10/2022 11:05 AM MORTGAGE MANAGER) P athologist Signature % Neutrophils 12 % MARI 04/10/2022 [facility] 10:04 PM MORTGAGE MANAGER % Lymphocytes 41 % MARI 04/10/2022 [facility] 10:04 PM MORTGAGE MANAGER % 46 % MARI 04/10/2022 [facility] Monocyte/Macroph 10:04 PM MORTGAGE MANAGER ages % Eosinophils 1 % MARI 04/10/2022 [facility] 10:04 PM MORTGAGE MANAGER Specimen Anatomical Collection Method Collection Time Receive d Time (Source) Location / / Volume Laterality Synovial fluid STRUCTURE OF RIGHT Non-blood 04/10/2022 11:05 5:04 KNEE REGION / Collection / AM MORTGAGE MANAGER PM MORTGAGE MANAGER Unknown Unknown Narrative [facility] - 04/10/2022 10:04 PM MORTGAGE MANAGER No reference ranges have been establishe d. This result should be interpreted in the context of the patient's clinical condit ion and compared to simultaneous measurement in the patient's blood. Joseph Ramesh MD LAB - BODY FLUIDS ORDERABLES Performing Organization Address City/State/ZIP Code Phon e Number [place] [address] Lab [address] [facility] [address] Building, Room 3-580 (ABNORMAL) Cell Count Body Fluid (04/10/2022 11:05 AM MORTGAGE MANAGER) [facility] gist Method Time Signature Color Red (A) Colorless, MARI 04/10/2022 [facility] Yellow 10:01 PM MORTGAGE MANAGER Clarity Cloudy (A) Clear MARI 04/10/2022 [facility] 10:01 PM MORTGAGE MANAGER Total 1,773 /uL MARI 04/10/2022 [facility] Nucleated 10:01 PM MORTGAGE MANAGER Cells Cell Count Knee, MARI 04/10/2022 [facility] Fluid Source Right 10:01 PM MORTGAGE MANAGER Specimen Anatomical Collection Method Collection Time Receive d Time (Source) Location / / Volume Laterality Synovial fluid STRUCTURE OF RIGHT Non-blood 04/10/2022 11:05 5:04 KNEE REGION / Collection / AM MORTGAGE MANAGER PM MORTGAGE MANAGER Unknown Unknown Narrative [facility] - 04/10/2022 10:01 PM MORTGAGE MANAGER No reference ranges have been established. ??This result should be interpreted in the context of the patient's clinical condition and compared to simultaneous measurement in the patient's blood. ?? Joseph Ramesh MD LAB - BODY FLUIDS ORDERABLES Performing Organization Address City/[facility]/ZIP Code Phon e Number [facility] [place] [address] Lab [address] [facility], Room 3-580 [facility] [address] Synovial fluid Aerobic Bacterial Culture Routine (03/21/2022 2:45 PM CDT) P athologist Signature Culture No Growth MARI 03/26/2022 [facility] 7:29 AM MORTGAGE MANAGER LABORATORY Specimen Anatomical Collection Method Collection Time Receive d Time (Source) Location / / Volume Laterality Synovial fluid STRUCTURE OF RIGHT Non-blood 03/21/2022 2:45 PM 1 05/21/2021 4:34 KNEE REGION / Collection / CDT PM CDT Unknown Unknown Joe Strickland PA-C LAB - MICRO GENERAL ORDERABL ES Performing Organization Address City/[facility] Code Phon e Number [facility] [place] [address] Diag. Lab [address] [facility], Room [address] Gram Stain (03/21/2022 2:45 PM [...] Code Phon e Number [facility] [place] [address] Diag. Lab [address] [facility], Room [address]297 Anaerobic Bacterial Culture Routine (03/21/2022 2:45 PM CDT) Patholo gist Method Time Signature Culture No anaerobic MARI 04/04/2022 [facility] organisms 11:36 AM MORTGAGE MANAGER LABORATORY isolated Specimen Anatomical Collection Method Collection Time Receive d Time (Source) Location / / Volume Laterality Synovial fluid STRUCTURE OF RIGHT Non-blood 03/21/2022 2:45 PM 1 05/21/2021 4:34 KNEE REGION / Collection / CDT PM CDT Unknown Unknown Joe Strickland PA-C LAB - MICRO GENERAL ORDERABL ES Performing Organization Address City/[facility]/ZIP Code Phon e Number [facility] [place] [place] [address] Diag. Lab [address] [facility], [address] from Last 3 Months Insurance Payer Benefit Plan / Subscriber ID Effective Phone Address T ype Group Dates BC[place] [id number] 2018-Prese [phone] [address] [id number] [address] [place] [address] MEDICARE MEDICARE [id number] 2012-Pres [phone] ATTN CLAI [place] Medicare ent 40 [address] [place] [address] Advance Directives For more information, please contact: [phone] Latest Code Status on File Code Status Date Activated Date Inactivated Comments Full Code 03/03/2021 3:38 PM 03/06/2021 6:26 PM All basic and advanced life-sustaining interventions are performed as oj ropriate Question Answer Comments Code status determined by: Discussion with patient/ legal de cision maker Care Teams Independent Sales Representative Relationship Specialty Start Date End Date Mario Keith MD PCP - General Internal Medicine 7/12/18 [facility] [address] [place] [address]
--- OUTSIDE RECORDS SUMMARY | 2022-04-25 09:11 | XMS_ITS | Encounter Summary ---
:1955 Author Organization [facility] Address [address] [place] [address] Care Team Providers Name Role Phone Mario Keith MD Primary Care Provider [phone] Reason for Referral Consultation (Routine) Specialty Diagnoses / Procedures Referred By Contact Refer red To Contact Senthil Zhao MD [address] [place] [address] Referral ID Status Reason Start Date Expiration Date Visits Requ ested Visits [facility]) Specialty Diagnoses / Procedures Referred By Contact Refer red To Contact Senthil Zhao MD [address] [place] [address] Referral ID Status Reason Start Date Expiration Date Visits Requ ested Visits [facility] (Routine) Specialty Diagnoses / Procedures Referred By Contact Refer red To Contact Senthil Zhao MD [address] [place] [address] Referral ID Status Reason Start Date Expiration Date Visits Requ ested Visits Authorized Reason for Visit Reason Comments One-sided Weakness Auth/Cert Specialty Diagnoses / Procedures Referred By Contact Refer red To Contact EMERGENCY MEDICINE Diagnoses Acute right-sided weakness Acute right-sided weakness Emergency Dept [address] [place] [address] Phone: Fax: Referral ID Status Reason Start Date Expiration Date Visits Requ ested Visits Authorized [id number] 1 1 Encounter Details Date Type Department Care Team Description 03/03/2021 - Emergency [facility] Deandre Alvarez Cla, MD [facility] OA [address] [place], [place] [id number] 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) (Primary Dx); 03/06/2021 [place] [address] Medical Sandeep Nunez DO [address] [place] [address] Acute right-sided weakness; Surgical Romaine Eng MD [address] [place], [place] [id number] JUSTIN (generalized anxiety disorder); [address] [facility] [place] [address] Social History Tobacco Use Types [...] Zhao MD - 03/06/2021 3:38 PM CDT [facility] Discharge Summary Hospitalist Date of Admission: 03/03/2021 [...] I, or a nurse practitioner or physician's sales assistants and salespersons working with me, had a mhry-bu-tbqo encounter that meets the physician ueat-kf-klpt encounter requirements with this patient on: 03/05/2021. [...] effort and are for medical reasons or gnosticism services or infrequently or of short duration when for other reasons) because: Patient is bedbound due to: fall risk, unsteady gait. Based on the above findings. I certify that this patient is confined to the home and needs intermittent prison care, physical therapy and/or speech therapy. The patient is under my care, and susana initiated the establishment of the plan of care. This patient will be followed by a physician who will periodically review the plan of care. Physician/Provider to provide follow up care: Mario Keith Attending [facility] physician (the Medicare certified FLUSHING provider): Senthil Zhao MD Physician Signature: See [...] next 24-48 hours, Please call them at [phone] documented in this encounter Medications at Time of Discharge Medication Sig Dispensed Refills Start Date End Date allopurinol (ZYLOPRIM) Take 1 tablet by 0 021 300 MG tablet mouth daily gabapentin (NEURONTIN) Take 900 mg by mouth 0 300 MG capsule 3 times daily lisinopril (ZESTRIL) 20 Take 20 mg by mouth 0 05/2020 MG tablet daily LORazepam (ATIVAN) 1 MG Take 0.5 tablets 0 2020 tablet (0.5 mg) by mouth 3 times daily as needed for anxiety meloxicam (MOBIC) 15 MG Take 15 mg by mouth 0 tablet daily metFORMIN (GLUCOPHAGE) Take 500 mg by mouth 0 11/2020 500 MG tablet 3 times daily (with meals) [...] tablet daily (with dinner) tamsulosin (FLOMAX) 0.4 Take 0.4 mg by mouth 0 MG capsule daily traZODone (DESYREL) 50 MG Take 75 mg by mouth 0 1 tablet At Bedtime aspirin (ASA) 81 MG Take 81 mg by mouth 0 04/23/2022 chewable tablet daily traMADol (ULTRAM) 50 MG Take 1-2 tablets by 0 04/202104/23/2022 tablet mouth every 6 hours as needed for pain documented as of this encounter Progress Notes Bhavesh Lynn, MARIANN - 03/05/2021 5:53 PM CDT To Do: [...] EMG. Praful Gaytan MD (general neurology) pgr [phone] Senthil Zhao MD - 03/05/2021 2:35 PM CDT [facility] Hospitalist Progress Note Assessment & Plan Jett [...] EXAM: MR CERVICAL SPINE W/O CONTRAST LOCATION: [facility] DATE/TIME: 03/05/2021 10:42 AM INDICATION: Cervical [...] Date: 03/06/2021 Discharge Disposition: Home Discharge Services: biology instructor/PT/OT SUPERVISOR ELECTRONICS ASSEMBLY Discharge DME: N/A Discharge Transportation: family or friend will provide Private pay costs discussed: Not applicable Education Provided on the Discharge Plan: yes Persons Notified of Discharge Plans: PT Patient/Family in Agreement with the Plan: yes Handoff Referral Completed: Yes Additional Information: 03/05/21 1100 [facility] ([facility] [phone] fax [phone]) PT able to d.c home today Will fax final d.c order to home care. Family to transport YOKO Simpson Bhavesh Lynn RN - 03/04/2021 6:06 PM [...] Adds Type of Visit Initial PT Evaluation Leadite Heater Leadite Heater Present no Language Angolan Living Environment People in home alone Current [...] Environment Comments Pt. lives alone in two [facility] with bedroom upstairs and railing [...] alone Current Living Arrangements other (see comments) ([address] [place] [address]) Home Accessibility stairs to enter home;stairs within home Number of Stairs, Main Entrance 2 Stair Railings, Main Entrance railing on right side (ascending) Number of Stairs, Within Home, Primary greater than 10 stairs Stair Railings, Within Home, Primary railing on right side (ascending) Transportation Anticipated car, drives self;family or friend will provide Living Environment Comments Pt. [facility] with bedroom upstairs and railing on [...] of Daily Living BADL Assessment toileting Toileting [place] Level (Toileting) supervision;set up;assist of 2;moderate assist [...] Needs Upon Discharge (OT) gait belt;raised toilet seat;frame trimmer;shower chair;tub bench;commode chair Risk & Benefits of [...] UE strength. Pt. lives alone in two [facility] with 2 stairs to enter [...] from the original note were not included. [facility] Hospitalist Progress Note Admit 03/03/2021 9:44 AM Name: Jett Georges II Provider: Romaine Eng MD, [facility] Date of Service: 03/04/2021 Reason for Stay [...] ?? #Hypertension-blood pressure stable for now, resume HAND SALTER lisinopril 20 mg, ?? #Anxiety-depression --Per pharmacy records he is on Zoloft daily, Seroquel 200 mg nightly, lorazepam as needed --Given his grogginess I will resume his Zoloft and HAND SALTER Seroquel for now but hold off on [...] Holder PA-C - 03/03/2021 2:41 PM CDT [facility] Admission History and Physical Examination NAME: [...] repeat #Hypertension-blood pressure stable for now, resume HAND SALTER lisinopril 20 mg, #Anxiety-depression --Per pharmacy records he is on Zoloft daily, Seroquel 200 mg nightly, lorazepam as needed --Given his grogginess I will resume his Zoloft and HAND SALTER Seroquel for now but hold off on [...] ARTHROPLASTY ; Surgeon: Joseph Ramesh MD; Location: [facility]; Service: Orthopedics ??? GASTRIC BYPASS [...] ??? Zyban [Bupropion Hydrobromide] Hives Social History Patient retired. He was a [...] plaque. There is no stenosis or dissection. [place]: There is some mild calcific [...] -- TROPONIN <0.015 -- Carli Holder PA-C [facility] Medicine March 03, 2021 Securely message with the Edutor Console (learn more here) Text page via [facility] Paging/Directory Associated attestation - Sandeep Nunez DO [...] AM CDTAssociated Order(s): ORTHOPEDIC SURGERY IP CONSULT [facility] Orthopedic Consultation Jett Georges II Age: [...] ARTHROPLASTY ; Surgeon: Joseph Ramesh MD; Location: [facility]; Service: Orthopedics ??? GASTRIC BYPASS [...] plaque. There is no stenosis or dissection. [place]: There is some mild calcific [...] EXAM: MR CERVICAL SPINE W/O CONTRAST LOCATION: [facility] DATE/TIME: 03/05/2021 10:42 AM INDICATION: Cervical [...] Negative Ketones Urine Negative Negative mg/dL Specific [place] Urine 1.017 1.003 - 1.035 Blood Urine [...] Range Hold Specimen JIC Extra Green Top ([place] Heparin) Tube Status: None Result Value Ref [...] recent exposure or clinical presentation suggests COVID-19. [facility] are certified under the Clinical [...] Rate 83 BPM Atrial Rate 83 BPM [place] Interval 246 ms QRS Duration 122 ms QT 394 ms QTc 462 ms P [place] 69 degrees R AXIS -72 degrees T [place] 19 degrees Interpretation ECG Sinus rhythm with 1st degree A-V block with occasional Premature ventricular complexes Left anterior fascicular block Abnormal ECG No previous ECGs available Neurology IP Consult: General (non-stroke/non-ICU); Patient to be seen: Routine - within 24 hours; right arm weakness, palsy?; Fbi Field Agent may enter orders: Yes; Requesting provider? Hospitalist [...] ARTHROPLASTY ; Surgeon: Joseph Ramesh MD; Location: [facility]; Service: Orthopedics ??? GASTRIC BYPASS [...] mg, 1 mg, Subcutaneous, Q15 Min PRN, Glory, Carli Vogel PA-C ??? gabapentin (NEURONTIN) capsule 300 mg, 300 mg, Oral, TID, Holder, Carli Vogel PA-C, 300 mg at 03/04/21 08 ??? insulin aspart (NovoLOG) injection (RAPID ACTING), [...] Holder, Carli Vogel PA-C, 200 mg at 03/03/21 [...] symmetric movements. MOTOR: Tone is difficult to process engineering manager, pain or difficulty relaxing complicate the [...] without Contrast Praful Gaytan MD (general neurology) [facility] [phone] 1. Acute right-sided weakness Care Management / Social Work IP Consult Status: None () Narrative Kumar Sandhya C, DOOR TO DOOR FUNDRAISING COLLECTOR 03/04/2021 3:22 PM Care Management Initial Consult General Information Assessment completed with: Patient, Type of CM/SW Visit: Initial Assessment Primary Care Provider verified and updated as needed: Readmission within the last 30 days: no previous admission in last 30 days Reason for Consult: discharge planning Communication Assessment Patient's communication style: spoken language (Angolan or Bilingual) Hearing Difficulty or Deaf: no [...] Gatherings with Friends and Family: ??? Attends Denominational Services: ??? Active Member of Clubs or [...] find to accept referral SW went to [employer] web site.. Called home care agencies but had to navigate through call center specialist services RADHA was able to find [facility] [phone] . Requested PT/OT SUPERVISOR ELECTRONICS ASSEMBLY support for pt. They could provide start of care on Saturday Will fax face sheet and H&P over today and final d.c orders tomorrow Pt stated he will call his son for a ride home tomorrow. 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 Hospitalist (if different from attending physician... Status: None () Narrative Jairo Buckley, AUDREY 03/05/2021 4:01 PM [facility] Neurosurgery Consultation Date of Admission: 03/03/2021 Date [...] with further consultation recommendations. Jairo Buckley PA-C [facility] Neurosurgery [address] [place] [address] Pager [phone] Code Status Full Code Reason for Consult [...] ARTHROPLASTY ; Surgeon: Joseph Ramesh MD; Location: [facility]; Service: Orthopedics ??? GASTRIC BYPASS [...] it with pertinent information if needed. Jett Dakota Dennehey II reports that he has quit smoking. [...] Right: 5/5 Left: 5/5 interosseus : Right: 09/21 Left: 09/21 Hip Flexor: Right: 09/21 Left: 09/21 Hip Adductor: Right: 09/21 Left: 09/21 Hip Abductor: Right: 09/21 Left: 09/21 Gastroc [...] Status --------- ------ CBC with platelets and d...[[id number]] Abnormal Final result Please view results for these tests on the individual orders. Extra Tube ([place] Draw) Status: None Narrative The following orders were created for panel order Extra Tube ([place] Draw). Procedure Abnormality Status --------- ------ Extra Blue Top Tube[[id number]] Final result Extra Green Top ([place]...[[id number]] Final result Extra Purple Top Tube[[id number]] Final result Please view results for these [...] CDTAssociated Order(s): SPINE SURGERY ADULT IP CONSULT [facility] Neurosurgery Consultation Date of Admission: 03/03/2021 Date [...] with further consultation recommendations. Jairo Buckley PA-C [facility] Neurosurgery [place] [address] Pager [phone] Code Status Full Code Reason for Consult [...] ARTHROPLASTY ; Surgeon: Joseph Ramesh MD; Location: [facility]; Service: Orthopedics ??? GASTRIC BYPASS [...] personally see this patient today. Sandhya Heath, YOKO - 03/04/2021 3:22 PM CDTAssociated Order(s): CARE MANAGEMENT / SOCIAL WORK IP CONSULT Care Management Initial Consult General Information Assessment completed with: Patient, Type of CM/SW Visit: Initial Assessment Primary Care Provider verified and updated as needed: Readmission within the last 30 days: no previous admission in last 30 days Reason for Consult: discharge planning Communication Assessment Patient's communication style: spoken language (Angolan or Bilingual) Hearing Difficulty or Deaf: no [...] Gatherings with Friends and Family: ??? Attends Denominational Services: ??? Active Member of Clubs or [...] agency Sw can find to accept referral RADHA went to [employer] web site.. Called home care agencies but had to navigate through call center specialist services SW was able to [facility] [phone] . Requested PT/OT SUPERVISOR ELECTRONICS ASSEMBLY support for pt. They could provide start [...] ARTHROPLASTY ; Surgeon: Joseph Ramesh MD; Location: [facility]; Service: Orthopedics ??? GASTRIC BYPASS [...] tablet 81 mg, 81 mg, Oral, Daily, HolderCarli pinto PA-C, 81 mg at 03/04/21 0806 ??? glucose gel 15-30 g, 15-30 g, Oral, Q15 Min PRN OR dextrose 50 % injection 25-50 mL, 25-50 mL, Intravenous, Q15 Min PRN OR glucagon injection 1 mg, 1 mg, Subcutaneous, Q15 Min PRN, Carli Holder PA-C ??? gabapentin (NEURONTIN) capsule 300 mg, 300 mg, Oral, TID, Holder, Carli Vogel PA-C, 300 mg at 03/04/21 08 ??? insulin aspart (NovoLOG) injection (RAPID ACTING), [...] Holder, Carli Vogel PA-C, 200 mg at 10/15/21 1944 ??? senna-docusate (SENOKOT-S/PERICOLACE) 8.6-50 MG per [...] Carli Holder PA-C, 20 mg at 03/03/21 175 ??? sodium chloride 0.9% infusion, , Intravenous, [...] Bedtime, HolderCarli pinto PA-C, 75 mg at 03/03/211944 Allergies: Allergies Allergen Reactions ??? Zyban [Bupropion [...] symmetric movements. MOTOR: Tone is difficult to process engineering manager, pain or difficulty relaxing complicate the [...] Contrast Praful Gaytan MD (general neurology) pgr [phone] 1. Acute right-sided weakness documented in this encounter ED Notes Bhavesh Lynn, MARIANN - 03/03/2021 12:16 PM CDT [facility] ED Nurse Handoff Report Jett Georges II is a 65 year old male ED Chief complaint: One-sided Weakness . ED Diagnosis: Final diagnoses: Acute right-sided weakness Allergies: Allergies Allergen Reactions ??? Zyban [Bupropion Hydrobromide] Hives Code Status: Full Code Activity level - Baseline/Home: Independent. Activity Level - Current: Assist X 1. Lift room needed:No. Bariatric: No Leadite Heater Needed: No Isolation: No. Infection: Not Applicable. [...] recent exposure or clinical presentation suggests COVID-19. [facility] are certified under the Clinical [...] Status --------- ------ CBC with platelets and d...[[id number]] Abnormal Final result Please view results for these tests on the individual orders. EXTRA TUBE Narrative: The following orders were created for panel order Extra Tube ([place] Draw). Procedure Abnormality Status --------- ------ Extra Blue Top Tube[[id number]] Final result Extra Green Top ([place]...[[id number]] Final result Extra Purple Top Tube[[id number]] Final result Please view results for these [...] Unable to fully extend the right wrist. Microbiology Lab Assistant strength 5/5 and symmetric bilaterally. Left upper [...] to prior, dated 11/28/2017. Rate 83 bpm. MN interval 246 ms. QRS duration 122 ms. [...] Status --------- ------ CBC with platelets and d...[[id number]] Abnormal Final result Please view results for these tests on the individual orders. EXTRA TUBE Narrative: The following orders were created for panel order Extra Tube ([place] Draw). Procedure Abnormality Status --------- ------ Extra Blue Top Tube[[id number]] Final result Extra Green Top ([place]...[[id number]] Final result Extra Purple Top Tube[[id number]] Final result Please view results for these [...] care of Dr. Nunez. Impression & Plan [facility] Diagnoses: The patient has stroke symptoms: ED Stroke specific documentation NIHSS PDF Patient last known well time: 2099 yesterday ED Provider first to bedside at: [...] of Health Stroke Scale (Baseline) Time Performed: 954 Score Level of consciousness: (0) Alert, keenly [...] hypoglycemia (or hyperglycemia), head or spinal trauma, AUTO ELECTRICAL TECHNICIAN infection, Toxin ingestion and shock state (e.g. [...] 1. Acute right-sided weakness R53.1 Scribe Disclosure: Markus, Tanisha Paz, am serving as a scribe at 9:50 [...] UE strength. Pt. lives alone in two [facility] with 2 stairs to enter [...] up twice daily checks AM.PM. Plan of Mathieu - Elaine Bonner RN - 03/06/2021 2:03 PM CDT End of Shift Summary For vital signs and complete assessments, please see documentation flowsheets. Pertinent assessments: AxO x4. Up with Ax1 with walker and gait belt. Denies N/V. R arm ROM limited.Worked with therapy, ambulating well. DME walker given. BG WNL. Treatment Plan: discharge home after MRI results Plan of Amelia Bro RN - 03/06/2021 6:01 AM CDT End [...] Amelia Kiran RN Plan of Care - Lory Erika PT - 03/04/2021 4:49 PM CDT Images from the original note were not included. [facility] OUTPATIENT PHYSICAL THERAPY EVALUATION PLAN OF TREATMENT FOR OUTPATIENT REHABILITATION (COMPLETE FOR INITIAL CLAIMS ONLY) Patient's Last Name, First Name, M.I. Date of : 1955 Jett Georges Provider's Name [facility] Onset Date: 03/03/21 Start of [...] Gonzalez MD - 03/04/2021 12:10 PM CDT [facility] Admission Status; Secondary Review Determination Admission [...] Sincerely, Nikki Gonzalez MD MPH Utilization Review [facility]. Plan of Care - Amelia Kiran [...] Medication History - Varinder Daniels [facility] - 03/03/2021 2:10 PM CDT Admission medication history interview status for this patient is complete. See [facility] admission navigator for allergy information, prior to admission medications and immunization status. Medication history interview done, indicate source(s): Patient Medication history resources (including written lists, pill bottles, clinic record):[facility]: [id number] [place], [place] - [address] [address] Changes made to HAND SALTER medication list: Added: all meds Changed: trazodone 75 mg TID -> at bedtime Reported as Not Taking: none Removed: none Actions taken by pharmacist (provider contacted, etc):left sticky note for provider Additional medication history information: - Patient may have confused trazodone with tramadol and took about 10 tramadol tablets in total yesterday. - The current medication list was completed to the best of designer writer's ability using available resources (e.g. [facility] dispensing records, Care Everywhere, chart review notes, [...] every 6 hours as needed for pain 10/14/2021at Unknown time Yes Unknown, Entered By History traZODone (DESYREL) 50 MG tablet Take 75 mg by mouth At Bedtime 03/02/2021 at Unknown time Yes Unknown, Entered By History documented in this encounter Plan of Treatment Upcoming Encounters Date Type Specialty Care Team Description 05/11/2022 Hospital Encounter [facility] [address] [place], [place] [address] 05/11/2022 Surgery Surgery Domitila, MEDIAL UNICOMPA RTMENTAL MD Joseph ARTHROPLASTY CONVERSION TO UVALDE TOTAL KNEE ARTH ROPLASTY ORTHOPAEDICS [address] [place], [place] [address] Scheduled Procedures Name Priority Associated Diagnoses Date/Time REVISION, TOTAL ARTHROPLASTY, Osteoarthritis of knee 05/11/2022 2:45 PM STOCK CONTROLLER KNEE Scheduled Referrals Name Type Priority Associated Diagnoses [facility] Referral Routine: Next Acute [...] 03/06 1:33 Unknown CDT PM CDT Sandeep PATEL POCT Performing Organization Address City/State/ZIP Code Phon [place] [address] Care Lab [address] [facility] Lab (1st floor, no room number) MR [...] in clude each brachial plexus in the [id number]. JOHN HAWTHORNE MD SYSTEM ID: ??[id number] Narrative 03/06/2021 2:48 PM CDT MRI OF [...] in clude each brachial plexus in the [id number]-iw-feyp. JOHN HAWTHORNE MD SYSTEM ID: [id number] Veronica Murrell PA-C IMG MRI ORDERABLES (ABNORMAL) Glucose by meter (03/06/2021 7:24 AM CDT) P athologist Signature GLUCOSE BY 165 (H) 70 - 99 03/06/2021 [facility] LABORATORY METER POCT mg/dL 7:35 AM CDT POC Specimen Anatomical Collection Method Collection Time Receive d Time (Source) Location / / Volume Laterality Blood BLOOD SPECIMEN / 03/06/2021 7:24 AM 03/06 7:35 Unknown CDT AM CDT Sandeep HANNAH - ENEDINA POCT Performing Organization Address City/State/ZIP Code [place] [address] Care Lab [address] Lab (1st floor, no room number) [...] Address City/State/ZIP Code [place] [address] Care Lab [address] Lab (1st floor, no room number) [...] Address City/State/ZIP Code [place] [address] Care Lab [address] Lab (1st floor, no room number) [...] Unknown PM CDT 12:58 PM CDT Sandeep Nunez DO LAB - MARTINEAKER POCT Performing Organization Address City/State/ZIP Code [place] [address] Care Lab [address] Lab (1st floor, no room number) [...] EXAM: MR CERVICAL SPINE W/O CONTRAST LOCATION: [facility] DATE/TIME: 03/05/2021 10:42 AM INDICATION: [...] EXAM: MR CERVICAL SPINE W/O CONTRAST LOCATION: [facility] DATE/TIME: 03/05/2021 10:42 AM INDICATION: [...] Glucose by meter (03/05/2021 7:20 AM CDT) athologist Signature GLUCOSE BY 171 (H) 70 - 99 03/05/2021 [facility] LABORATORY METER POCT mg/dL 7:27 AM CDT POC Specimen Anatomical Collection Method Collection Time Receive d Time (Source) Location / / Volume Laterality Blood BLOOD SPECIMEN / 03/05/2021 7:20 AM 03/05 7:27 Unknown CDT AM CDT Sandeep PATEL POCT Performing Organization Address City/State/ZIP Code Phon [place] [address] Care Lab [address] Lab (1st floor, no room number) (ABNORMAL) Glucose by meter (03/05/2021 1:52 AM CDT) athologist Signature GLUCOSE BY 132 (H) 70 - 99 03/05/2021 [facility] LABORATORY METER POCT mg/dL 1:59 AM CDT POC Specimen Anatomical Collection Method Collection Time Receive d Time (Source) Location / / Volume Laterality Blood BLOOD SPECIMEN / 03/05/2021 1:52 AM 03/05 1:59 Unknown CDT AM CDT Sandeep Nunez DO LAB - BEAKER POCT Performing Organization Address City/[facility]/ZIP Code [place] [address] Care Lab [address] Lab (1st floor, no room number) [...] LAB - BEAKER POCT Performing Organization Address City/[facility]/ZIP Code Phon e Number LABORATORY [place], [place] [phone] Care Lab [address] Lab (1st floor, no room number) [...] LAB - BEAKER POCT Performing Organization Address City/[facility]/ZIP Code Ph[place] [address] Care Lab [address] Lab (1st floor, no room number) [...] Code Phon e [place] [address] Care Lab [address] Lab (1st floor, no room number) (ABNORMAL) CK total (03/04/2021 8:02 AM CDT) athologist Signature CK 729 (H) 30 - 300 03/04/2021 [facility] U/L 8:36 AM CDT Specimen Anatomical Collection Method / Collection Time Recei karin Time (Source) Location / Volume Laterality Blood STRUCTURE OF RIGHT Venipuncture / 03/04/2021 8:02 02/17 8:15 HAND / Unknown Unknown AM CDT AM CDT Carli Holder PA-C LAB - BLOOD ORDERABLES Performing Organization Address City/[facility]/ZIP Code [place] [phone] Care Lab [address] Lab (1st floor, no room number) [...] City/State/ZIP Code [place] [phone] Care Lab [address] Lab (1st floor, no room number) (ABNORMAL) Basic metabolic panel (03/04/2021 8:02 AM CDT) [facility] Method Time Signature Sodium 132 (L) 133 [...] Nitrogen 6 (L) 7 - 30 03/04/2021 [facility] mg/dL 8:33 AM CDT Creatinine 0.65 (L) 0.66 - 03/04/2021 [facility] 1.25 mg/dL 8:33 AM CDT Calcium [...] LAB - BLOOD ORDERABLES Performing Organization Address City/[facility]/ZIP Code [place] [address] Care Lab [address] Lab (1st floor, no room number) [...] City/State/ZIP Code Phon [place] [address] Care Lab [address] Lab (1st floor, no room number) [...] 03/04 2:25 Unknown CDT AM CDT Sandeep Nnuez TOM - BEAKER POCT Performing Organization Address City/[facility]/ZIP Code Phon e [place] [address] Care Lab [address] Lab (1st floor, no room number) [...] Unknown Unknown PM CDT PM CDT Carli Hodler PA-C LAB - BLOOD ORDERABLES Performing Organization Address City/[facility]/ZIP Code [place] [phone] Care Lab [address] Lab (1st floor, no room number) (ABNORMAL) Sodium (03/03/2021 8:29 PM CDT) P athologist Signature Sodium 128 (L) 133 - 144 03/03/2021 [facility] mmol/L 8:49 PM CDT Specimen Anatomical Collection Method / Collection Time Recei karin Time (Source) Location / Volume Laterality Blood STRUCTURE OF RIGHT Venipuncture / 03/03/2021 8:29 02/17 8:40 HAND / Unknown Unknown PM CDT PM CDT Carli Harrellu PA-C LAB - BLOOD ORDERABLES Performing Organization Address City/State/ZIP Code [place] [address] Care Lab [address] Lab (1st floor, no room number) [...] LAB - BEAKER POCT Performing Organization Address [facility]/ZIP [facility] Phon e [place] [address] Care Lab [address] Lab (1st floor, no room number) (ABNORMAL) Glucose by meter (03/03/2021 5:54 PM CDT) athologist Signature GLUCOSE BY 131 (H) 70 - 99 03/03/2021 [facility] METER POCT mg/dL 6:08 PM CDT POC Specimen Anatomical Collection Method Collection Time Receive d Time (Source) Location / / Volume Laterality Blood BLOOD SPECIMEN / 03/03/2021 5:54 PM 03/03 6:08 Unknown CDT PM CDT Sandeep Nunez DO LAB - BEAKER POCT Performing Organization Address [facility] Phon [place] [address] Care Lab [address] Lab (1st floor, no room number) (ABNORMAL) Sodium (03/03/2021 3:47 PM CDT) P athologist Signature Sodium 127 (L) 133 - [...] Address City/State/ZIP Code [place] [address] Care Lab [address] Lab (1st floor, no room number) [...] LAB - BLOOD ORDERABLES Performing Organization Address City/[facility]/ZIP Code [place] [address] Care Lab [address] Lab (1st floor, no room number) (ABNORMAL) Lactic acid whole blood (03/03/2021 3:47 PM CDT) P athologist Signature Lactic Acid 2.2 (H) 0.7 - 2.0 03/03/2021 [facility] mmol/L 3:55 PM CDT Specimen Anatomical Collection Method / Collection Time Recei karin Time (Source) Location / Volume Laterality Blood STRUCTURE OF RIGHT Venipuncture / 03/03/2021 3:47 02/17 3:53 HAND / Unknown Unknown PM CDT PM CDT Carli Holder PA-C LAB - BLOOD ORDERABLES Performing Organization Address City/[facility]/[place] [address] Care [address] Lab (1st floor, no room number) [...] disease. JUAN LEAL MD SYSTEM ID: DLOES Denadre Alvarez MD IMG MRI ORDERABLES Asymptomatic COVID-19 Virus (Coronavirus) by PCR Nasopharyngeal (03/03/2021 11:39 AM CDT) Analysis Performed At [facility] logist Time Signature SARS CoV2 PCR Negative [...] exposure or clinical presentation sugges ts COVID-19. ??[facility] are certified under the Clinical Laborat ory Improvement Amendments of 1988 (CLIA-88) as qualified to perform moderate and/or high complexity laboratory testing. Deandre Alvarez MD LAB - MICRO GENERAL ORDERABL ES Performing Organization Address City/State/ZIP Code [place] [address] Care Lab [address] [facility] Lab (1st floor, no room number) (ABNORMAL) UA with Microscopic reflex to Culture (03/03/2021 11:03 AM CDT) [facility] Method Time Signature Color Urine Light Colorless, 03/03/2021 LABORATORY Yellow Straw, 11:28 AM Light CDT Yellow, Yellow Appearance Urine Clear Clear 03/03/2021 LABORATOR Y 11:28 AM CDT Glucose Urine 150 (A) Negative 03/03/2021 LABORATORY mg/dL 11:28 AM CDT Bilirubin Urine Negative Negative 03/03/2021 LABORATORY 11:28 AM CDT Ketones Urine Negative Negative 03/03/2021 LABORATORY mg/dL 11:28 AM CDT Specific [place] 1.017 1.003 - 03/03/2021 LABORATOR Y Urine [...] Organization Address City/State/[place] [address] Care Lab [address] [facility] Lab (1st floor, no room number) CT [...] images otherwi se symmetric. Procedure Note Juan Lael MD - 03/03/2021Form atting of this note [...] plaque. There is no stenosis or dissection. [place]: There is some mild tracee [...] plaque. There is no stenosis or dissection. [place]: There is some mild tracee [...] mastoid air cells are clear. Procedure Note Juna Leal MD - 03/03/2021Form atting of this [...] RESULTS Atrial Rate 83 BPM RADIOLOGY RESULTS [place] Interval 246 ms RADIOLOGY RESULTS QRS Duration 122 ms RADIOLOGY RESULTS QT 394 ms RADIOLOGY RESULTS QTc 462 ms RADIOLOGY RESULTS P [place] 69 degrees RADIOLOGY RESULTS R AXIS -72 degrees RADIOLOGY RESULTS T [place] 19 degrees RADIOLOGY RESULTS Interpretation Sinus rhythm with 1st degree A-V block with occasional Premature ventricular complexes RADIOLOGY ECG Left anterior fascicular block RESULTS Abnormal ECG No previous ECGs available Specimen Anatomical Collection Method Collection Time Receive d Time (Source) Location / / Volume Laterality 03/03/2021 9:58 AM CDT 11:32 PM CDT eDandre Alvarez MD ECG ORDERABLES Performing Organization Address City/State/ZIP Code Phon e Number RADIOLOGY RESULTS (ABNORMAL) Lipid Profile (03/03/2021 9:58 AM CDT) [facility] Method Time Signature Cholesterol 152 <200 03/03/2021 [...] City/State/ZIP Code [place] [address] Care Lab [address] Lab (1st floor, no room number) [...] LAB - BLOOD ORDERABLES Performing Organization Address City/[facility]/ZIP Code [place] [phone] Care Lab [address] Lab (1st floor, no room number) Partial thromboplastin time (03/03/2021 9:58 AM CDT) athologist Signature aPTT 32 22 - 38 03/03/2021 [facility] Seconds 10:36 AM CDT Specimen Anatomical Collection Method / Collection Time Recei karin Time (Source) Location / Volume Laterality Blood STRUCTURE OF LEFT Venipuncture / 03/03/2021 9:58 03/03 UPPER LIMB / Unknown AM CDT 10:07 AM CDT Unknown Deandre Alvarez MD LAB - BLOOD ORDERABLES Performing Organization Address City/[facility]/ZIP Code [place] [address] Care Lab [address] Lab (1st floor, no room number) [...] Organization Address City/State/[place] [address] Care Lab [address] Lab (1st floor, no room number) [...] LAB - BLOOD ORDERABLES Performing Organization Address City/[facility]/[place] [address] Care Lab [address] Lab (1st floor, no room number) Extra Green Top ([place] Heparin) Tube (03/03/2021 9:58 AM CDT) athologist Signature Hold Specimen JI 03/03/2021 [facility] 11:18 AM CDT Specimen Anatomical Collection Method / Collection Time Recei karin Time (Source) Location / Volume Laterality Blood STRUCTURE OF LEFT Venipuncture / 03/03/2021 9:58 03/03 UPPER LIMB / Unknown AM CDT 10:07 AM CDT Unknown Deandre Alvarez MD LAB - BLOOD ORDERABLES Performing Organization Address City/[facility]/[place] [address] Care Lab [address] Lab (1st floor, no room number) [...] City/State/ZIP Code [place] [address] Care Lab [address] Lab (1st floor, no room number) (ABNORMAL) CBC with platelets and differential (03/03/2021 9:58 AM CDT) [facility] gist Method Time Signature WBC Count 13.3 [...] Organization Address City/State/[place] [phone] Care Lab [address] [facility] (1st [facility], no room number) Ethyl Alcohol Level (03/03/2021 9:58 AM CDT) P athologist Signature Alcohol ethyl <0.01 <=0.01 g/dL 03/03/2021 [facility] 10:36 AM CDT Specimen Anatomical Collection Method / Collection Time Recei karin Time (Source) Location / Volume Laterality Blood STRUCTURE OF LEFT Venipuncture / 03/03/2021 9:58 03/03 UPPER LIMB / Unknown AM CDT 10:07 AM CDT Unknown Deandre Alvarez MD LAB - BLOOD ORDERABLES Performing Organization Address City/State/[place] [phone] Care Lab [address] Lab (1st floor, no room number) Troponin I (03/03/2021 9:58 AM CDT) P athologist Signature Troponin I <0.015 0.000 - [...] AM CDT 10:07 AM CDT Unknown Deandre Alavrez MD LAB - BLOOD ORDERABLES Performing Organization Address City/[facility]/ZIP [place] [address] Care Lab [address] Lab (1st floor, no room number) Lipase (03/03/2021 9:58 AM CDT) athologist Signature Lipase 101 73 - 393 U/L 03/03/2021 [facility] 10:36 AM CDT Specimen Anatomical Collection Method / Collection Time Recei karin Time (Source) Location / Volume Laterality Blood STRUCTURE OF LEFT Venipuncture / 03/03/2021 9:58 03/03 UPPER LIMB / Unknown AM CDT 10:07 AM CDT Unknown Deandre Alvarez MD LAB - BLOOD ORDERABLES Performing Organization Address City/[facility]/ZIP Code [place] [address] Care Lab [address] Lab (1st floor, no room number) (ABNORMAL) Comprehensive metabolic panel (03/03/2021 9:58 AM CDT) Patholo gist Method Time Signature Sodium 126 (L) 133 - 144 03/03/2021 [facility] mmol/L 10:36 AM CDT Potassium 4.7 3.4 - 5.3 03/03/2021 LABORATORY mmol/L 10:36 AM CDT Chloride 92 (L) 94 - 109 03/03/2021 LABORATORY mmol/L 10:36 AM CDT Carbon Dioxide 25 20 - 32 03/03/2021 LABORATORY (CO2) mmol/L 10:36 AM CDT Anion Gap 9 3 - 14 03/03/2021 LABORATORY mmol/L 10:36 AM CDT Urea Nitrogen 11 7 - 30 03/03/2021 LABORATORY mg/dL 10:36 AM CDT Creatinine 0.95 0.66 - 03/03/2021 [facility] 1.25 mg/dL 10:36 AM CDT Calcium 8.8 8.5 - 10.1 03/03/2021 LABORATORY mg/dL 10:36 AM CDT Glucose 180 (H) 70 - 99 03/03/2021 LABORATORY mg/dL 10:36 AM CDT Alkaline 60 40 - 150 03/03/2021 LABORATORY Phosphatase U/L 10:36 AM CDT AST 38 0 - 45 U/L 03/03/2021 LABORATORY 10:36 AM CDT ALT 32 0 - 70 U/L 03/03/2021 LABORATORY 10:36 AM CDT Protein Total 7.6 [...] City/State/ZIP Code [place] [phone] Care Lab [address] Lab (1st floor, no room number) (ABNORMAL) Glucose by meter (03/03/2021 9:48 AM CDT) P athologist Signature GLUCOSE BY 178 (H) 70 - 99 03/03/2021 [facility] METER POCT mg/dL 9:55 AM CDT POC Comment: Dr/RN Notified Specimen Anatomical Collection Method Collection Time Receive d Time (Source) Location / / Volume Laterality Blood BLOOD SPECIMEN / 03/03/2021 9:48 AM 03/03 9:55 Unknown CDT AM CDT Deandre Alvarez MD LAB - BEAKER POCT Performing Organization Address [facility]/ZIP Code Phon e Number [place] [address] Care Lab [address] Lab (1st floor, no room number) documented in this encounter Visit Diagnoses Diagnosis 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) - Primary Acute right-sided weakness Hemiplegia, unspecified, affecting unspe cified side JUSTIN (generalized anxiety disorder) Generalized anxiety disorder Essential hypertension Unspecified essential hypertension Acute right-sided weakness Hemiplegia, unspecified, affecting unspe cified side Osteoarthritis of knee Osteoarthrosis, unspecified whether gene ralized or localized, lower leg documented in this encounter Admitting Diagnoses Diagnosis [...] HOURS PRN, mild pain, fever, Starting on 03/05/21 at 1749, Maximum acetaminophen dose from all [...] at 1913, Administer intramuscular if an intravenous ro anila is not available and notify provider when [...] 1914, Administer intramuscular if an intravenous ro anila is not available and notify provider when [...] Bhavesh Lynn RN) 0801 (Given - Provider: Elanie Bonner RN) 81 mg, Oral, DAILY, First dose on Sat03/04/21 at 0900 diazepam (VALIUM) tablet 5 mg (COMPLETED) 1122 (Given - Provider: Elaine Bonner RN) 5 mg, Oral, ONCE, On Sat03/06/21 at 110 0, For 1 dose, Take 1/2 hour prior to MRI gabapentin (NEURONTIN) capsule 300 mg 0805 (Given - Pr ovider: Bhavesh Lynn RN)1610 (Given - Provider: Bhavesh Lynn RN)2210 (Given - Provider: Amelia Kiran, RN) 0856 (Given - Provider: Bhavesh Lynn RN) 1733 (Given - Provider: Bhavesh Lynn RN)2136 (Given - Provider: Amelia Kiran RN) 0801 (Given - Provider: Elaine Bonner RN)1607 (z Missed (do not use) - Provider: Sandra Quintana RN - Reason: Patient/family refused) 300 mg, Oral, 3 TIMES DAILY, First dose on Sat03/03/21 at 2000 gadobutrol (GADAVIST) injection 15 mL (COMPLETED) 1300 (Given - Provider: Fernanda Wall) 15 mL, Intravenous, ONCE, On 03/06/21 at 1300, For 1 dose insulin aspart (NovoLOG) injection (RAPID ACTING) 0808 (Given - Provider: Bhavesh Lynn RN)1204 (Given - Provider: Bhavesh Lynn RN)1811 (Given - Provider: Bhavesh Lynn RN) 0722 (Given - Provider: Bhavesh Lynn RN - Comment: bg [phone] (z Missed (do not use) - Provider: Bhavesh Lynn RN - Reason: Order parameters not met - Comment: bg [phone] (Given - Provider: Bhavesh Lynn RN - Comment: bg 143) 0802 (Given - Provider: Elaine Bonner RN - Comment: [phone] (z Missed (do not use) - Provider: Elaine Bonner RN - Reason: [...] insulin aspart (NovoLOG) injection (RAPID ACTING) 2217 (z Missed (do not use) - Provider: Amelia Kiran RN - Reason: Order parameters not met - Comment: B.G.=139) 2135 (z Missed (do not use) - Provider: Amelia Kiran RN - Reason: Order parameters not met - Comment: B.G.= 194) 1-5 Units, Subcutaneous, AT BEDTIME, Fir [...] 0801 (Given - Provider: Elaine Bonner RN) 40 mg, Oral, DAILY, First dose on Sat03/03/21 at 1600 QUEtiapine (SEROquel) tablet 200 mg 2211 (Given - Prov ider: Amelia Kiran, RN) 2136 (Given - Provider: Amelia Kiran RN) 200 mg, Oral, AT BEDTIME, First dose on Sat03/03/21 at 2000 sertraline (ZOLOFT) tablet 50 mg 0806 (Given - Provider: Pam Lynn RN) 0856 (Given - Provider: Bhavesh Lynn RN) 0801 (Given - Provider: Elaine Bonner RN) 50 mg, Oral, DAILY, First dose on Sat03/03/21 at 1600 simvastatin (ZOCOR) tablet 20 mg 1610 (Given - Provider: Pam Lynn, RN) 1733 (Given - Provider: Bhavesh Lynn, RN) 1700 (Canceled Entry - Provider: Orders Generic Provider - Comment: Automatically canceled at discontinue of medication order) 20 mg, Oral, DAILY WITH SUPPER, First dose on Sat03/03/21 at 17 00 tamsulosin (FLOMAX) capsule 0.4 mg 0806 (Given - Provider: John Lynn RN) 0856 (Given - Provider: Bhavesh Lynn RN) 0801 (Given - Provider: Elaine Bonner RN) 0.4 mg, Oral, DAILY, First dose on Sat at 1600, Administer 30 minutes after the same meal each day. Capsules should be swallowed whole; do not crush chew or open. traZODone (DESYREL) half-tab 75 mg 2211 (Given - Provi reece: Amelia Kiran RN) 2136 (Given - Provider: Amelia Kiran RN) 75 mg, Oral, AT BEDTIME, First dose on Sat03/03/21 at 2000 Continuous Medication Order 03/04/2021 03/05/2021 03/06/2021 sodium chloride 0.9% infusion (CANCELED) 0400 (New Bag - Provider: Amelia Kiran RN)1325 (Stopped - Provider: Bhavesh Lynn RN) at 100 mL/hr, Intravenous, CONTINUOUS, S tarting on Sat03/03/21 at 1600, Until 03/04/21 at 1218 PRN Medication Order 03/04/2021 03/05/2021 03/06/2021 acetaminophen (TYLENOL) solution 650 mg 1805 (Given - Provider: Bhavesh Lynn RN) 0156 (Given - Provider: Amelia perez RN) 650 mg, Oral, EVERY 4 HOURS PRN, mild pa in, fever, Starting on 03/05/21 at 1749, Maximum acetaminophen dose from all [...] 50-100 mg 1023 (Given - Provi reece: Bhavseh Lynn, RN)1610 (Given - Provider: Bhavesh Lynn RN)2209 (Given - Provider: Amelia Kiran, RN) 0522 (Given - Provider: Amelia perez, RN)1144 (Given - Provider: Bhavesh Lynn, RN)1805 (Given - Provider: Bhavesh Lynn RN) 0613 (Given - Provider: Amelia Kiran RN)1558 (Given - Provider: Sandra Quintana RN) 50-100 mg, Oral, EVERY 6 HOURS PRN, mode rate pain, Starting on 03/04/21 at 0953 Linked Groups Order Group 1: glucose gel 15-30 gJump to med 15-30 g, Oral, EVERY 15 MIN PRN, low blo od sugar, Starting on 03/03/21 at 1538
Give first dose for initial [...] op ioid reversal, Starting on Sat03/03/21 at 1913
Administer intravenous route when available and notify [...] stools.
documented in this encounter Care Teams Customs Compliance Specialist Relationship Specialty Start Date End Date Mario Keith MD PCP - General Internal Medicine 11/28/17 [facility] [address] [place] [address] documented as of this encounter
--- OUTSIDE RECORDS SUMMARY | 2022-04-25 09:12 | XMS_ITS | Encounter Summary ---
:1955 Author Organization [place] Address [address] [place] [address] Care Team Providers Name Role Phone Unavailable Primary Care Provider Unavailable Encounter Details Date Type Department Care Team Description 03/04/2009 Historic Notes INTERFACED REPORT Interface, Transcript onMD Social History Tobacco Use Types Packs/Day Years Used Date Smoking Tobacco: Never Assessed Sex Assigned at Date Recorded Not on file documented as of this encounter Progress Notes Interface, Bark Scaler - 08/05/2010 5:43 PM CDT General Information - Has NOT attended OT 14:00 as of: Plan - Plan: Encourage attendance and participation. ALISHA Vieyra (OTR)[Signed 15:20] Authored: General Information, Plan documented in this encounter Plan of Treatment Upcoming Encounters Date Type Specialty Care Team Description 05/11/2022 Hospital Encounter [facility] [address] [place], [place] [address] 05/11/2022 Surgery Surgery ERIC Ramesh UNICOMPA RTMENTAL MD Joseph [facility] [address] [place], [place] [address] Scheduled Procedures Name Priority Associated Diagnoses Date/Time REVISION, TOTAL ARTHROPLASTY, Osteoarthritis of knee 05/11/2022 2:45 PM DRENCHER KNEE documented as of this encounter Visit Diagnoses Not on filedocumented in this encounter
--- OUTSIDE RECORDS SUMMARY | 2022-04-25 09:12 | XMS_ITS | Encounter Summary ---
:1955 Author Organization [place] Address [address] [place] [address] Care Team Providers Name Role Phone Unavailable Primary Care Provider Unavailable Encounter Details Date Type Department Care Team Description 03/07/2009 Historic Notes INTERFACED REPORT David Shetty MD [facility] [address] [place] [address] (Wo rk) Social History Tobacco Use Types Packs/Day Years Used Date Smoking Tobacco: Never Assessed Sex Assigned at Date Recorded Not on file documented as of this encounter Progress Notes Graciela Shetty MD - 08/05/2010 5:36 PM CDT Interval [...] treat with clindamycin gel bid x6 days. GRACIELA Aguirre)[Signed 11:20] Authored: Interval History, Vital Signs/Labs/Imaging/Culture Review, Assessment and Plan documented in this encounter Plan of Treatment Upcoming Encounters Date Type Specialty Care Team Description 05/11/2022 Hospital Encounter Surgery Joseph Ramesh MD [facility] [address] [place], [place] [address] 05/11/2022 Surgery Surgery Domitila, MEDIAL UNICOMPA RTMENTAL MD Joseph ARTHROPLASTY CONVERSION TO [place] TOTAL KNEE [facility] [address] [place], [place] [address] Scheduled Procedures Name Priority Associated Diagnoses Date/Time REVISION, TOTAL ARTHROPLASTY, Osteoarthritis of knee 05/11/2022 2:45 PM DIGITAL SOLUTION ARCHITECT KNEE documented as of this encounter Visit Diagnoses Not on filedocumented in this encounter
--- OUTSIDE RECORDS SUMMARY | 2022-04-25 09:12 | XMS_ITS | Encounter Summary ---
:1955 Author Organization [place] Address [address] [place] [address]. [place] [address] Care Team Providers Name Role Phone Unavailable Primary Care Provider Unavailable Reason for Visit Reason Onset Date Comments Clinic Care Coordination - Initial 02/27/2016 Encounter Details Date Type Department Care Team Description 02/27/2016 Telephone General Surgery Gaby Sanford, Clinic Care [address] [facility] RN Coordination - Initial [address]th Floor [address] [place] [address] [place], [place] [phone] (Wo rk) Social History Tobacco Use Types Packs/Day Years Used Date Smoking Tobacco: Never Assessed Sex Assigned at Date Recorded Not on file documented as of this encounter Miscellaneous Notes Telephone Encounter - Gaby Sanford RN - 02/27/2016 3:25 PM CDT Referral from [employer] website. Patient has history of RYGB, would not be a candidate for the intragastric balloon. Encourage patient to set up appt for medical weight management. Contact information given. documented in this encounter Plan of Treatment Upcoming Encounters Date Type Specialty Care Team Description 05/11/2022 Hospital Encounter Surgery Joseph Ramesh MD [facility] [address] [place], [place] [address] 05/11/2022 Surgery Surgery Breien, MEDIAL UNICOMPA RTMENTAL MD Joseph ARTHROPLASTY CONVERSION TO [place] TOTAL KNEE ARTH R[facility]Y ORTHOP[facility]EDICS [address] [facility] [address] [facility] [address] [place] [address] Scheduled Procedures Name Priority Associated Diagnoses Date/Time REVISION, TOTAL ARTHROPLASTY, Osteoarthritis of knee 05/11/2022 2:45 PM ORACLE ARCHITECT KNEE documented as of this encounter Visit Diagnoses Not on filedocumented in this encounter
--- OUTSIDE RECORDS SUMMARY | 2022-04-25 09:12 | XMS_ITS | Encounter Summary ---
:1955 Author Organization [facility] Address [address] [place] [address] Care Team Providers Name Role Phone Mario Keith MD Primary Care Provider [phone] Encounter Details Date Type Department Care Team Description 11/27/2017 Anesthesia - [facility] MD Nina [place]ron OR [address] [place] [id number] [place], [place] [phone] [address] Social History Tobacco Use Types Packs/Day Years [...] sitting Prep: ChloraPrep Patient monitoring: heart rate, front desk monitor, continuous pulse ox and blood pressure [...] pressure, heart rate, continuous pulse oximetry and front desk monitor Laterality: right Injection technique: ultrasound guided [...] pressure, heart rate, continuous pulse oximetry and front desk monitor Laterality: left Injection technique: ultrasound guided [...] 05/11/2022 Hospital Encounter Surgery Joseph Ramesh MD [facility] [address] [place], [place] [address] 05/11/2022 Surgery Surgery ERIC Ramesh UNICOMPA RTMENTAL MD Joseph ARTHROPLASTY CONVERSION TO [facility] TOTAL KNEE [facility] [address] [place], [place] [address] Scheduled Procedures Name Priority Associated Diagnoses Date/Time REVISION, TOTAL ARTHROPLASTY, Osteoarthritis of knee 05/11/2022 2:45 PM MAT CUTTER KNEE documented as of this encounter Visit Diagnoses Not on filedocumented in this encounter Care Teams Microbiology Soil Scientist Relationship Specialty Start Date End Date Mario Keith MD PCP - General Internal Medicine 11/28/17 [facility] [address] [place] [address] documented as of this encounter
--- OUTSIDE RECORDS SUMMARY | 2022-04-25 09:12 | XMS_ITS | Encounter Summary ---
:1955 Author Organization [place] Address [address] [place] [address] Care Team Providers Name Role Phone Unavailable Primary Care Provider Unavailable Encounter Details Date Type Department Care Team Description 03/05/2009 Historic Notes INTERFACED REPORT David Minaya MD [facility] [address] [place] [facility] [place] [address] (Wo rk) Social History Tobacco [...] 05/11/2022 Hospital Encounter Surgery Joseph Ramesh MD [facility] [address] [place], [place] [address] 05/11/2022 Surgery Surgery Domitila, ERIC UNICOMPA RTMENTAL MD Joseph ARTHROPLASTY CONVERSION TO [place] TOTAL KNEE [facility] [address] [place], [place] [address] Scheduled Procedures Name Priority Associated Diagnoses Date/Time REVISION, TOTAL ARTHROPLASTY, Osteoarthritis of knee 05/11/2022 2:45 PM SHELL REPRINT OPERATOR KNEE documented as of this encounter Visit Diagnoses Not on filedocumented in this encounter
--- OUTSIDE RECORDS SUMMARY | 2022-04-25 09:12 | XMS_ITS | Encounter Summary ---
:1955 Author Organization [place] Address [facility] [place] [address] Care Team Providers Name Role Phone Unavailable Primary Care Provider Unavailable Reason for Visit Reason Onset Date Comments Abstract 05/28/2017 Encounter Details Date Type Department Care Team Description 05/28/2017 Documentation Only [facility] Erica Rodriguez bstract Surgical Weight Loss [place] [id number] [facility] [address] [facility] [address] [place] [address] [address] [place] [address] [phone] Social History Tobacco Use Types Packs/Day Years Used Date Smoking Tobacco: Never Assessed Sex Assigned at Date Recorded Not on file documented as of this encounter Plan of Treatment Upcoming Encounters Date Type Specialty Care Team Description 05/11/2022 Hospital Encounter Surgery Joseph Ramesh MD [facility] [address] [place], [place] [address] 05/11/2022 Surgery Surgery ERIC Ramesh UNICOMPA RTMENTAL MD Joseph ARTHROPLASTY CONVERSION TO [place] TOTAL KNEE [facility] [address] [place], [place] [address] Scheduled Procedures Name Priority Associated Diagnoses Date/Time REVISION, TOTAL ARTHROPLASTY, Osteoarthritis of knee 05/11/2022 2:45 PM CUSTOMER OPERATIONS SPECIALIST KNEE documented as of this encounter Visit Diagnoses Not on filedocumented in this encounter
--- OUTSIDE RECORDS SUMMARY | 2022-04-25 09:12 | XMS_ITS | Encounter Summary ---
:1955 Author Organization [place] Address [address] [place] [address]. [place] [address] Care Team Providers Name Role Phone Mario Keith MD Primary Care Provider [phone] Encounter Details Date Type Department Care Team Description 11/28/2017 Surgery - [facility] Ann moreira MD [place] [address] [place] [address] [facility] [phone] [facility] [address] [place], [place] [address] Social History Tobacco Use Types Packs/Day Years [...] 05/11/2022 Hospital Encounter Surgery Joseph Ramesh MD [facility] [address] [facility] [address] [place], [place] [address] 05/11/2022 Surgery Surgery Breien, MEDIAL UNICOMPA RTMENTAL MD Joseph ARTHROPLASTY CONVERSION TO [place] TOTAL KNEE [facility] [address] [place], [place] [address] Scheduled Procedures Name Priority Associated Diagnoses Date/Time REVISION, TOTAL ARTHROPLASTY, Osteoarthritis of knee 05/11/2022 2:45 PM LARGE SHEETFED PRESS OPERATOR KNEE documented as of this encounter Visit Diagnoses Not on filedocumented in this encounter Care Teams Wood Lathe Operator Relationship Specialty Start Date End Date Mario Keith MD PCP - General Internal Medicine 11/28/17 [facility] [address] [place] [address] documented as of this encounter
--- OUTSIDE RECORDS SUMMARY | 2022-04-25 09:12 | XMS_ITS | Encounter Summary ---
:1955 Author Organization [place] Address [address] [place] [address] Care Team Providers Name Role Phone Unavailable Primary Care Provider Unavailable Encounter Details Date Type Department Care Team Description 10/22/2007 Historic Notes INTERFACED REPORT Interface, Transcript on, Social History Tobacco Use Types Packs/Day Years Used Date Smoking Tobacco: Never Assessed Sex Assigned at Date Recorded Not on file documented as of this encounter Progress Notes Interface, Vending Route Servicer - 08/06/2010 9:23 PM CDT Discharge Planning - [facility]charge From: [facility] - Patient Care Unit: Station 33 [...] Dr. White call: - Phone number of [facility] [phone] patient should call: Other Discharge Education, Materials, [...] Materials, and Instructions, Follow Up Care Interface, Vending Route Servicer - 08/06/2010 9:23 PM CDT BARIATRIC SURGERY [...] 05/11/2022 Hospital Encounter Surgery Joseph Ramesh MD [facility] [address] [facility] [address] [facility] [address] [place], [place] [address] 05/11/2022 Surgery Surgery Domitila, ERIC UNICOMPA RTMENTAL MD Joseph ARTHROPLASTY CONVERSION TO [facility] TOTAL KNEE [facility] [address] [place], [place] [address] Scheduled Procedures Name Priority Associated Diagnoses Date/Time REVISION, TOTAL ARTHROPLASTY, Osteoarthritis of knee 05/11/2022 2:45 PM SUMMER LAW CLERK KNEE documented as of this encounter Visit Diagnoses Not on filedocumented in this encounter
--- OUTSIDE RECORDS SUMMARY | 2022-04-25 09:12 | XMS_ITS | Encounter Summary ---
:1955 Author Organization [place] Address [address] [place] [address] Care Team Providers Name Role Phone Unavailable Primary Care Provider Unavailable Encounter Details Date Type Department Care Team Description 03/08/2009 Historic Notes INTERFACED REPORT Interface, Transcript on, Social History Tobacco Use Types Packs/Day Years Used Date Smoking Tobacco: Never Assessed Sex Assigned at Date Recorded Not on file documented as of this encounter Progress Notes Interface, Cork Compounder - 08/05/2010 5:32 PM CDT Summary of Progress and Discharge Plan - Summary: Pt's therapist appt is at [facility] in [place] and pt needs to be their at 12:30 to check in and Terrie (therapist) will need to make the referal for med management. - Symptoms to Report: thoughts of suicide, dial 911 - Lifestyle Adjustment: Do not use drugs or alcohol Psychiatry Follow-Up - Therapist: Terrie Rodríguez - Therapist Address: [address] [place] [address]. - Therapist Phone Number: - Therapist Appointment 01:00 Date/Time: Provider Information - Discharged From: [facility] - Unit: 30 - Unit - [...] Avoid alcohol. Resources - Resources Crisis Intervention: 929.649.4637 or 501 565-8137 (TTY: 982.329.7185); call anytime for help. National [employer] on Mental Illness (www.[place].apryl.org):: 102.376.9035 or 879-648-0720. Signatures BRITTNEE HART (Psychotherapist)[Signed 11:59] Authored: Summary of Progress and Discharge Plan, Psychiatry Follow-Up Mariann Sierra (RN)[Signed 11:45] Authored: Summary of Progress and Discharge Plan, Provider Information, Discharge Teaching Checklist, Resources documented in this encounter Plan of Treatment Upcoming Encounters Date Type Specialty Care Team Description 05/11/2022 Hospital Encounter Surgery Joseph Ramesh MD [facility] [address] [place], [place] [address] 05/11/2022 Surgery Surgery Domitila, ERIC UNICOMPA RTMENTAL MD Joseph ARTHROPLASTY CONVERSION TO [place] TOTAL KNEE [facility] [address] [place], [place] [address] Scheduled Procedures Name Priority Associated Diagnoses Date/Time REVISION, TOTAL ARTHROPLASTY, Osteoarthritis of knee 05/11/2022 2:45 PM MATH TUTOR KNEE documented as of this encounter Visit Diagnoses Not on filedocumented in this encounter
--- OUTSIDE RECORDS SUMMARY | 2022-04-25 09:12 | XMS_ITS | Encounter Summary ---
:1955 Author Organization [place] Address [address] [place] [address] Care Team Providers Name Role Phone Unavailable Primary Care Provider Unavailable Reason for Visit Reason Onset Date Comments Pt. Information/instruction 10/27/2012 Other Encounter Details Date Type Department Care Team Description 10/27/2012 Telephone Surgery Clinic Gaby Hicks, Pt. Samaria WAITE Information/instructio Building [address] [facility] n; 1st Floor, Clinic [address] [place] [id number] [phone] Social History Tobacco Use Types Packs/Day Years [...] had surgery done with Dr White out [facility] in 2007. 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 Pt has since gained weight back and is wondering about getting the ring surgery done to help him lose weight again. Pt wondering if any of the physicians here will do the ring surgery Pls call pt back to answer questions [phone] Thanks Coordinator talked to patient. Informed patient that we do not routinely put a adjustable ring on patients after gastric bypass. Recommended medical weight management as place to start in addressing weight regain. Given contact info to schedule appt. documented in this encounter Plan of Treatment Upcoming Encounters Date Type Specialty Care Team Description 05/11/2022 Hospital Encounter Surgery Joseph Ramesh MD [facility] [address] [place], [place] [address] 05/11/2022 Surgery Surgery ERIC Ramesh UNICOMPA RTMENTAL MD Joseph ARTHROPLASTY CONVERSION TO [place] TOTAL KNEE [facility] [address] [place], [place] [address] Scheduled Procedures Name Priority Associated Diagnoses Date/Time REVISION, TOTAL ARTHROPLASTY, Osteoarthritis of knee 05/11/2022 2:45 PM GENERAL ASSIGNMENT REPORTER KNEE documented as of this encounter Visit Diagnoses Not on filedocumented in this encounter
--- OUTSIDE RECORDS SUMMARY | 2022-04-25 09:12 | XMS_ITS | Encounter Summary ---
:1955 Author Organization [place] Address [address] [place] [address] Care Team Providers Name Role Phone Unavailable Primary Care Provider Unavailable Encounter Details Date Type Department Care Team Description 03/07/2009 [facility] [address] [facility] [facility] [place] [address] (Wo rk) Social History Tobacco Use Types Packs/Day Years Used Date Smoking Tobacco: Never Assessed Sex Assigned at Date Recorded Not on file documented as of this encounter Plan of Treatment Upcoming Encounters Date Type Specialty Care Team Description 05/11/2022 Hospital Encounter Surgery [facility]ames[facility] MD [facility] [address] [place], [place] [address] 05/11/2022 Surgery Surgery Domitila, ERIC UNICOMPA RTMENTAL MD Joseph ARTHROPLASTY CON[facility] K[facility] [address] [place], [place] [address] Scheduled Procedures Name Priority Associated Diagnoses Date/Time REVISION, TOTAL ARTHROPLASTY, Osteoarthritis of knee 05/11/2022 2:45 PM MIXER WET POUR KNEE documented as of this encounter Procedures Procedure [...]
--- OUTSIDE RECORDS SUMMARY | 2022-04-25 09:12 | XMS_ITS | Encounter Summary ---
:1955 Author Organization [place] Address [address] [place] [address] Care Team Providers Name Role Phone Unavailable Primary Care Provider Unavailable Encounter Details Date Type Department Care Team Description 03/06/[address] [facility] [address] [facility] [place] [address] (Wo rk) Social History Tobacco Use Types Packs/Day Years Used Date Smoking Tobacco: Never Assessed Sex Assigned at Date Recorded Not on file documented as of this encounter Plan of Treatment Upcoming Encounters Date Type Specialty Care Team Description 05/11/2022 Hospital Encounter Surgery [facility] [address] [place], [place] [address] 05/11/2022 Surgery Surgery Domitila, ERIC UNICOMPA RTMENTAL MD Joseph [facility]LASTY [facility] [address] [place], [place] [address] Scheduled Procedures Name Priority Associated Diagnoses Date/Time REVISION, TOTAL ARTHROPLASTY, Osteoarthritis of knee 05/11/2022 2:45 PM FIRER HELPER KNEE documented as of this encounter Procedures [...] PM 9 9:10 CDT PM CDT Shukri HANNAH - BEAKER POCT Performing Organization Address City/State/ZIP Code Phon e Number MISYS (ABNORMAL) Glucose by meter (03/06/2009 8:57 AM CDT) P athologist Signature Glucose 135 (H) 60 - 99 MISYS mg/dL Specimen Anatomical Collection Method Collection Time Receive d Time (Source) Location / / Volume Laterality 03/06/2009 8:57 AM 9 CDT 11:10 AM CDT Shukri HANNAH - BEAKER POCT Performing Organization Address City/State/ZIP Code Phon e Number MISYS documented in this encounter Visit Diagnoses Not on filedocumented in this encounter
--- OUTSIDE RECORDS SUMMARY | 2022-04-25 09:12 | XMS_ITS | Encounter Summary ---
:1955 Author Organization [place] Address [address] [place] [address] Care Team Providers Name Role Phone Unavailable Primary Care Provider Unavailable Encounter Details Date Type Department Care Team Description 03/04/2009 Consultation [facility] Results [facility] [address] [facility] [place] [address] (Wo rk) Social History Tobacco [...] extremities intact grossly in all 4 extremities, sanitation associate is 5/5 bilaterally. LABORATORY DATA: His comprehensive metabolic battery was normal with the exception of glucose whichis elevated to 210. His TSH was 2.8. His GGT was 48. Records from [facility] indicated his CBC was normal, and [...] dougie Name: JETT GEORGES MRN: [id number] Account: [id number] : 1955 Consult Date: 03/04/2009 Document: [id number] cc: Shukri [facility] DO documented in this encounter Plan of Treatment Upcoming Encounters Date Type Specialty Care Team Description 05/11/2022 Hospital Encounter Surgery Joseph Ramesh MD [facility] [address] [facility] [address] [facility] [address] [place], [place] [address] 05/11/2022 Surgery Surgery Domitila, ERIC UNICOMPA RTMENTAL MD Joseph ARTHROPLASTY CONVERSION TO [facility] TOTAL KNEE [facility] [address] [place], [place] [address] Scheduled Procedures Name Priority Associated Diagnoses Date/Time REVISION, TOTAL ARTHROPLASTY, Osteoarthritis of knee 05/11/2022 2:45 PM SHALE PLANER OPERATOR HELPER KNEE documented as of this encounter Visit Diagnoses Not on filedocumented in this encounter
--- OUTSIDE RECORDS SUMMARY | 2022-04-25 09:12 | XMS_ITS | Encounter Summary ---
:1955 Author Organization [place] Address [address] [place] [address] Care Team Providers Name Role Phone Unavailable Primary Care Provider Unavailable Encounter Details Date Type Department Care Team Description 10/21/2007 Historic Results INTERFACED REPORT Alireza White MD [address] [facility] [address] [place] [address] (Wo rk) Social History Tobacco Use Types Packs/Day Years Used Date Smoking Tobacco: Never Assessed Sex Assigned at Date Recorded Not on file documented as of this encounter Plan of Treatment Upcoming Encounters Date Type Specialty Care Team Description 05/11/2022 Hospital Encounter [facility] [address] [place], [place] [address] 05/11/2022 Surgery Surgery ERIC Ramesh UNICOMPA RTMENTAL MD Joseph ARTHROPLASTY CONVERSION TO [place] TOTAL KNEE [facility] [address] [place], [place] [address] Scheduled Procedures Name Priority Associated Diagnoses Date/Time REVISION, TOTAL ARTHROPLASTY, Osteoarthritis of knee 05/11/2022 2:45 PM MARKETING TEACHER KNEE documented as of this encounter Procedures [...] SANTOS - ENEDINA POCT Performing Organization Address [facility] Phon e Number MISYS (ABNORMAL) Glucose by meter (10/21/2007 6:04 PM CDT) P athologist Signature Glucose 111 (H) 60 - 99 MISYS mg/dL Specimen Anatomical Collection Method Collection Time Receive d Time (Source) Location / / Volume Laterality 10/21/2007 6:04 PM 8 CDT 10:46 PM CDT Alireza SANTOS - ENEDINA POCT Performing Organization Address [facility] Phon e Number MISYS (ABNORMAL) Glucose by meter (10/21/2007 11:35 AM CDT) P athologist Signature Glucose 134 (H) 60 - 99 MISYS mg/dL Specimen Anatomical Collection Method Collection Time Receive d Time (Source) Location / / Volume Laterality 10/21/2007 11:35 10/21/2007 AM CDT 10:46 PM CDT Alireza White MD LAB - BELELO POCT Performing Organization Address [facility] Phon e Number MISYS (ABNORMAL) Hemoglobin (10/21/2007 10:05 AM CDT) P athologist Signature Hemoglobin 12.1 (L) 13.3 - 17.7 MISYS g/dL Specimen (Source) Anatomical Collection Method Collection Time Re ceived Time Location / / Volume Laterality 10/21/2007 10:05 10/21/2007 AM CDT Kalpana Ram PA-C LAB - BLOOD ORDERABLES Performing Organization Address [facility] Phon e Number MISYS (ABNORMAL) Electrolyte [...] LAB - BLOOD ORDERABLES Performing Organization Address [facility] Phon e Number MISYS (ABNORMAL) Glucose by meter (10/21/2007 7:58 AM CDT) P athologist Signature Glucose 129 (H) 60 - 99 MISYS mg/dL Specimen Anatomical Collection Method Collection Time Receive d Time (Source) Location / / Volume Laterality 10/21/2007 7:58 AM 8 CDT 10:51 PM CDT Alireza White MD LAB - BEAKER POCT Performing Organization Address City/[facility] Phon e Number MISYS documented in this encounter Visit Diagnoses Not on filedocumented in this encounter
--- OUTSIDE RECORDS SUMMARY | 2022-04-25 09:12 | XMS_ITS | Encounter Summary ---
:1955 Author Organization [place] Address [address] [facility] [place] [address] Care Team Providers Name Role Phone Mario Keith MD Primary Care Provider [phone] Encounter Details Date Type Department Care Team Description 11/28/2017 - Hospital Encounter [facility] [place], Prim keya osteoarthritis 11/29/2017 [facility], [address] [place] [address] ORTHOPAEDICS [place], [place] [address] [facility] [address] [address] [address] [place], [place] [id number] Social History Tobacco Use Types Packs/Day Years [...] male underwent the aforementioned procedure with Dr. Ramesh on 11/28/2017. There were no intraoperative complications [...] at discharge: Leandro Curiel Home Medication Instructions JESUSITA:[id number] Printed on:11/29/17 1430 Medication Information acetaminophen (TYLENOL) [...] bilateral unicompartmental arthroplasty on 11/28/[address] Rmaesh PLAN Anticoagulation addressed - ASA 325 mg two times a day in addition to SCDs and early ambulation Continue with PT, OT. Plan for Discharge: Home with OPPT today if pain continues to be well controlled with oral pain medication Marion Romano PA-C [facility] Maria E Russo MD - 11/29/2017 [...] spent 35 min Maria E Russo MD. [facility] medicine service Selam Overton RT - 11/28/2017 3:13 PM CDT 11/28/17 1512 NPPV Other SpO2 96 % CPAP CPAP Pt. Owned Device Yes;Clean;Functional (does not bleed in oxygen or use humidity, home unit ) CPAP Pressure (cmH2O) (home settings ) CPAP O2 (L/min or FiO2) 21 Chaz Colindres [facility] - 11/28/2017 8:08 AM CDT Pharmacy Note - Admission Medication History Pertinent Provider Information: N/A Prior To Admission (TANK CLEANING SUPERVISOR) med list completed and updated in EMR. TANK CLEANING SUPERVISOR Med List Medication Sig Note Last Dose [...] 50mg Information source(s): Patient, Clinic records and CareEverywhere/SureScripts Patient was asked about OTC/herbal products specifically. TANK CLEANING SUPERVISOR med list reflects this. Based on the pharmacist???s assessment, the TANK CLEANING SUPERVISOR med list information appears reliable Allergies were reviewed, assessed, and updated with the patient. Patient does not use any multi-dose medications prior to admission. Thank you for the opportunity to participate in the care of this patient. Chaz Neil, Vincent 11/28/2017 8:08 AM Electronically signed by Chaz Colindres [facility] at 11/28/2017 8:09 AM CDT documented in this encounter H&P Notes Jennifer Ramesh MD - 11/28/2017 9:16 AM CDT I have performed an assessment and examined the patient, as necessary, to update the patient's current status that may have changed since the prior History and Physical. The History & Physical has been reviewed and the patient's status is unchanged. Jennifer Ramesh MD - 11/28/2017 9:16 AM CDT I [...] - for htn, dm2 Leandro Curiel, 1955, [facility] Prd Osteoarthritis of knee [M17.10] PCP: Mario Keith MD, Code status: Full Code Extended Emergency Contact Information Primary Emergency Contact: Alisson Curiel [facility] Relation: [id number] Secondary Emergency Contact: Ervin Conner [facility] Relation: Child Assessment and Plan [...] have been requested by orthopedics/ Dr. Jennifer Ramesh to evaluate Leandro Curiel for hypertention, diabetes [...] spent 70 min Maria E Russo MD. [facility] medicine service. documented in this encounter Miscellaneous Notes Op Note - Jennifer Ramesh MD - 11/28/2017 11:48 AM CDT Operative Report PATIENT: Leandro Curiel DATE OF SURGERY: 11/28/2017 SURGEON Jennifer Ramesh MD. BUS OR TRUCK GARAGE MECHANIC Joe Strickland PA-C (Expert AUDREY assist was [...] knee with increasing disability. X-rays have shown [id number] degenerative change in the medial compartment. Has [...] postop recovery area in stable condition. JENNIFER RAMESH MD COMMENT: Jennifer Ramesh COMMENT: Mario Keith MD documented in this encounter Plan of Treatment Upcoming Encounters Date Type Specialty Care Team Description 05/11/2022 Hospital Encounter Surgery Jennifer Ramesh MD [facility] [address] [facility] N [facility] [address] [place], [place] [address] 05/11/2022 Surgery Surgery ERIC Ramesh UNICOMPA RTMENTAL MD Jennifer ARTHROPLASTY CONVERSION TO [place] TOTAL KNEE [facility] [address] [place], [place] [address] Scheduled Procedures Name Priority Associated Diagnoses Date/Time REVISION, TOTAL ARTHROPLASTY, Osteoarthritis of knee 05/11/2022 2:45 PM LOBSTERMAN KNEE documented as of this encounter Procedures [...] - HIM 11/28/2017 SCAN EKG CARDIAC - [facility] 11/28/2017 SCAN documented in this encounter Results [...] Organization Address City/State/ZIP Code Phon e Number [facility] POCT RESULTS [address] [facility] [address] Glucose by meter POCT (11/29/2017 7:03 AM CDT) athologist Signature GLUCOSE BY 116 mg/dL 11/29/2017 [facility] METER POCT 7:03 AM T HOSPITAL POCT RESULTS Comment: Reference Ranges ? [...] Organization Address City/State/ZIP Code Phon e Number [facility] POCT RESULTS [address] [facility] [address] Hemoglobin A1c (11/29/2017 6:17 AM CDT) P athologist Signature Hemoglobin A1C 6.0 4.2 - 6.1 11/29/2017 [facility] % 3:11 PM CDT [facility] LABORATORY Specimen Anatomical Collection Method / Collection Time Recei karin Time (Source) Location / Volume Laterality Blood specimen Venipuncture / 11/29/2017 6:17 11/30/19 18 9:36 (specimen) Unknown AM CDT AM CDT Maria E Russo MD LAB - BLOOD ORDERABLES Performing Organization Address City/State/ZIP Code Phon e [place] [address] [address] [facility] LABORATORY (ABNORMAL) CBC with platelets (11/29/2017 6:17 AM CDT) [facility] Method Time Signature WBC 7.7 4.0 - 11.0 11/29/2017 HEALTH thou/uL 6:27 AM CDT [facility] RBC Count 3.65 (L) 4.40 - 11/29/2017 HEALTH 6.20 6:27 AM CDT [facility] mill/uL [facility] LAB[facility] Hemoglobin 10.3 (L) 14.0 - 11/29/2017 HEALTH 18.0 g/dL 6:27 AM CDT [facility] Hematocrit 30.9 (L) 40.0 - 11/29/2017 HEALTH 54.0 % 6:27 AM CDT [facility] MCV 85 80 - 100 11/29/2017 [facility] fL 6:27 AM CDT [facility] MCH 28.2 27.0 - 11/29/2017 HEALTH 34.0 pg 6:27 AM CDT [facility] LABORATORY MCHC 33.3 32.0 - 11/29/2017 HEALTH 36.0 g/dL 6:27 AM CDT [facility] RDW 13.3 11.0 - 11/29/2017 HEALTH 14.5 % 6:27 AM CDT [facility] Platelet Count 177 140 - 440 11/29/2017 [facility] thou/uL 6:27 AM CDT [facility] Mean Platelet 9.8 8.5 - 12.5 11/29/2017 HEALTH Volume fL 6:27 AM CDT [facility] Specimen Anatomical Collection Method / Collection Time Recei karin Time (Source) Location / Volume Laterality Blood specimen Venipuncture / 11/29/2017 6:17 07 18 6:22 (specimen) Unknown AM CDT AM CDT Maria E Russo MD LAB - BLOOD ORDERABLES Performing Organization Address City/State/ZIP Code Phon e Number [place] [address] Lab [address] [place] [address] [facility] [place] [address] LABORATORY (ABNORMAL) Basic metabolic panel (11/29/2017 6:17 AM CDT) Analysis Performed At Path logist Time Signature Sodium 134 (L) 136 - 145 11/29/2017 HEALTH mmol/L 6:42 AM T [facility] LAB[facility] Potassium 4.5 3.5 - 5.0 11/29/2017 HEALTH mmol/L 6:42 AM T [facility] LAB[facility] Chloride 99 98 - 107 11/29/2017 HEALTH mmol/L 6:42 AM [facility] LABOR[facility] Carbon Dioxide 27 22 - 31 11/29/2017 HEALTH (CO2) mmol/L 6:42 AM [facility] LAB[facility] Anion Gap 8 5 - 18 11/29/2017 HEALTH mmol/L 6:42 AM [facility] LAB[facility] Glucose 122 70 - 125 11/29/2017 HEALTH mg/dL 6:42 AM [facility] Calcium 8.8 8.5 - 10.5 11/29/2017 HEALTH mg/dL 6:42 AM [facility] LABOR[facility] Urea Nitrogen 7 (L) 8 - 22 11/29/2017 HEALTH mg/dL 6:42 AM [facility] LABOR[facility]ORY Creatinine 0.78 0.70 - 11/29/2017 [facility] 1.30 mg/dL 6:42 AM [facility] LABORATORY GFR Estimate If >60 >60 11/29/2017 [facility] Black mL/min/1.7 6:42 AM [place] [address] [facility] GFR Estimate >60 >60 11/29/2017 HEALTH mL/min/1.7 6:42 AM T [facility] 3m2 [facility] Specimen Anatomical Collection Method / Collection Time Recei karin Time (Source) Location / Volume Laterality Blood specimen Venipuncture / 11/29/2017 6:17 11/30/19 18 6:22 (specimen) Unknown AM CDT AM CDT Narrative [facility] LAB - 11/29/2017 6:42 AM CDT Fasting Glucose reference range is 70-99 mg/dL per [place] [employer] (ADA) chay dela cruz. Maria E Russo MD LAB - BLOOD ORDERABLES Performing Organization Address [facility]/State/ZIP Code Phon e Number [facility] [place] [address] [facility] [address] [facility] [address] [facility] [place] [address] [facility] LAB [address] [facility] [place] [address], [facility] Glucose by meter POCT (11/28/2017 9:09 PM CDT) athologist Signature GLUCOSE BY 96 mg/dL 11/28/2017 [facility] 9:09 PM CDT HOSPITAL POCT [...] Organization Address City/State/ZIP Code Phon e Number [facility] POCT RESULTS [address] [facility] [place] [address] Glucose by meter POCT (11/28/2017 4:59 PM CDT) P athologist Signature GLUCOSE BY 105 mg/dL 11/28/2017 [facility] METER POCT 4:59 PM CDT HOSPITAL [...] Organization Address City/State/ZIP Code Phon e Number [facility] POCT RESULTS 1924 [facility] [address] Glucose by meter POCT (11/28/2017 11:53 AM CDT) athologist Signature GLUCOSE BY 107 mg/dL 11/28/2017 [facility] METER POCT 11:53 AM CDT [facility] POCT RESULTS Comment: Reference Ranges ? Age [...] Organization Address City/State/ZIP Code Phon e Number [facility] POCT RESULTS [address] [facility] [place] [address] (ABNORMAL) CBC with platelets (11/28/2017 7:46 AM CDT) [facility] gist Method Time Signature WBC 6.6 4.0 - 11.0 11/28/2017 [facility] thou/uL 7:52 AM CDT [facility] LAB[facility]AT[facility] RBC Count 3.84 (L) 4.40 - 11/28/2017 HEALTH 6.20 7:52 AM CDT [facility] mill/uL [facility] Hemoglobin 10.9 (L) 14.0 - 11/28/2017 HEALTH 18.0 g/dL 7:52 AM CDT [facility] LAB[facility] Hematocrit 32.4 (L) 40.0 - 11/28/2017 HEALTH 54.0 % 7:52 AM CDT [facility] LABORAT[facility] MCV 84 80 - 100 11/28/2017 HEALTH fL 7:52 AM CDT [facility] MCH 28.4 27.0 - 11/28/2017 HEALTH 34.0 pg 7:52 AM CDT [facility] MCHC 33.6 32.0 - 11/28/2017 HEALTH 36.0 g/dL 7:52 AM CDT [facility] RDW 13.5 11.0 - 11/28/2017 HEALTH 14.5 % 7:52 AM CDT [facility] Platelet Count 221 140 - 440 11/28/2017 [facility] thou/uL 7:52 AM CDT [facility] Mean Platelet 9.9 8.5 - 12.5 11/28/2017 [facility] Volume fL 7:52 AM CDT [facility] Specimen Anatomical Collection Method / Collection Time Recei karin Time (Source) Location / Volume Laterality Blood specimen Venipuncture / 11/28/2017 7:46 11/29/19 18 7:50 (specimen) Unknown AM CDT AM CDT Joe Strickland PA-C LAB - BLOOD ORDERABLES Performing Organization Address City/State/ZIP Code Phon e Number [facility] [place] [address] [place], [place] [address]leila Flores [address] [place], [place] [address] LABORATORY EXTRA GREEN TOP (LITHIUM HEPARIN) TUBE (11/28/2017 7:46 AM CDT) Specimen Anatomical Collection Method / Collection Time Recei karin Time (Source) Location / Volume Laterality Blood specimen Venipuncture / 11/28/2017 7:46 11/29/19 18 (specimen) Unknown AM CDT 10:16 AM CDT Jennifer Ramesh MD LAB - BLOOD ORDERABLES Glucose by [...] Organization Address City/State/ZIP Code Phon e Number [facility] POCT RESULTS [address] [facility], [place] [address] LAB RESULT - HIM SCAN (11/28/2017) Narrative This result has an attachment that is no t available. Historical Provider [facility] NON-BEAKER LAB TESTING EKG CARDIAC - HIM SCAN (11/28/2017) Narrative This result has an attachment that is no t available. Historical Provider ECG ORDERABLES documented in this encounter Visit Diagnoses Diagnosis Primary osteoarthritis of both knees Primary localized osteoarthrosis, lower leg Osteoarthritis of knee Osteoarthrosis, unspecified whether gene ralized or localized, lower leg documented in this encounter Care Teams Field Crop Farmworker Relationship Specialty Start Date End Date Mario Keith MD PCP - General Internal Medicine 11/28/17 [facility] [address] [place] [address] documented as of this encounter
--- OUTSIDE RECORDS SUMMARY | 2022-04-25 09:12 | XMS_ITS | Encounter Summary ---
:1955 Author Organization [place] Address [address] [place] [address] Care Team Providers Name Role Phone Unavailable Primary Care Provider Unavailable Encounter Details Date Type Department Care Team Description 03/03/2009 Historic Notes INTERFACED REPORT Interface, Transcript on, Social History Tobacco Use Types Packs/Day Years Used Date Smoking Tobacco: Never Assessed Sex Assigned at Date Recorded Not on file documented as of this encounter Progress Notes Interface, Agricultural Extension Educator - 08/05/2010 5:47 PM CDT General Information [...] - Second Staff (name) Bud Ruano - soup person #1: Leandro Curiel - Relationship to Father patient #1: - Phone 1: [phone] - Patient's spoken language; Vietnamese or Bilingual communication style Advance Directive - [...] Hospitalization - Primary Care Mario Kelly--[facility] Physician - Do you have none restrictions [...] - Do you have yes, 8 yo --non-longterm parent but close to responsibility for his [...] Encounter Surgery [facility] [address] [place], [place] [address] 05/11/2022 Surgery Surgery ERIC Ramesh UNICOMPA RTMENTAL MD Joseph [facility] T[facility] KNEE [facility] [address] [place], [place] [address] Scheduled Procedures Name Priority Associated Diagnoses Date/Time REVISION, TOTAL ARTHROPLASTY, Osteoarthritis of knee 05/11/2022 2:45 PM BRANCH OPERATIONS COORDINATOR KNEE documented as of this encounter Visit Diagnoses Not on filedocumented in this encounter
--- OUTSIDE RECORDS SUMMARY | 2022-04-25 09:12 | XMS_ITS | Encounter Summary ---
:1955 Author Organization [place] Address [address] [place] [address] Care Team Providers Name Role Phone Unavailable Primary Care Provider Unavailable Encounter Details Date Type Department Care Team Description 03/07/2009 Historic Notes INTERFACED REPORT Blas Cates DO [facility] [address] [facility] [address] [place] [address] (Wo rk) Social History Tobacco Use Types Packs/Day Years Used Date Smoking Tobacco: Never Assessed Sex Assigned at Date Recorded Not on file documented as of this encounter Progress Notes Interface, Extractor Loader And Unloader - 08/05/2010 5:36 PM CDT Problem List [...] D/C Saturday. continue current treatment plan. Signatures BALS CATES (DO)[Signed 10:42] Authored: Problem List, Interval History, Review of Systems, Mental Status Exam, Labs, VS, Risk Assessment Entered: Problem List, Interval History, Review of Systems, Mental Status Exam, VS, Risk Assessment documented in this encounter Plan of Treatment Upcoming Encounters Date Type Specialty Care Team Description 05/11/2022 Hospital Encounter Surgery [facility] [address] [place], [place] [address] 05/11/2022 Surgery Surgery ERIC Ramesh UNICOMPA RTMENTAL MD Joseph [facility]EE [facility] [address] [place], [place] [address] Scheduled Procedures Name Priority Associated Diagnoses Date/Time REVISION, TOTAL ARTHROPLASTY, Osteoarthritis of knee 05/11/2022 2:45 PM SPRING FORMER HAND KNEE documented as of this encounter Visit Diagnoses Not on filedocumented in this encounter
--- OUTSIDE RECORDS SUMMARY | 2022-04-25 09:12 | XMS_ITS | Encounter Summary ---
:1955 Author Organization [place] Address [address] [place] [address] Care Team Providers Name Role Phone Unavailable Primary Care Provider Unavailable Encounter Details Date Type Department Care Team Description 03/04/2009 Historic Notes INTERFACED REPORT David Minaya MD [facility] [address] [facility] [address] [facility] [place] [address] (Wo rk) Social History Tobacco Use Types Packs/Day Years Used Date Smoking Tobacco: Never Assessed Sex Assigned at Date Recorded Not on file documented as of this encounter Progress Notes Graciela Minaya MD - 08/05/2010 5:44 PM CDT ATTENDING PHYSICIAN - Attending Note: I examined the patient and discussed the case with the physician miller head assistant wet process student who is severing as a scribe [...] 05/11/2022 Hospital Encounter Surgery Joseph Ramesh MD [facility] [address] [place], [place] [address] 05/11/2022 Surgery Surgery Domitila, ERIC UNICOMPA RTMENTAL MD Joseph ARTHROPLASTY CONVERSION TO [facility] TOTAL KNEE [facility] [address] [place], [place] [address] Scheduled Procedures Name Priority Associated Diagnoses Date/Time REVISION, TOTAL ARTHROPLASTY, Osteoarthritis of knee 05/11/2022 2:45 PM ANTHROPOLOGY AND ARCHEOLOGY INSTRUCTOR KNEE documented as of this encounter Visit Diagnoses Not on filedocumented in this encounter
--- OUTSIDE RECORDS SUMMARY | 2022-04-25 09:12 | XMS_ITS | Encounter Summary ---
:1955 Author Organization [place] Address [address] [place] [address] Care Team Providers Name Role Phone Unavailable Primary Care Provider Unavailable Encounter Details Date Type Department Care Team Description 03/04/2009 [facility] [address] [facility] [place] [address] (Wo rk) Social History Tobacco Use Types Packs/Day Years Used Date Smoking Tobacco: Never Assessed Sex Assigned at Date Recorded Not on file documented as of this encounter Plan of Treatment Upcoming Encounters Date Type Specialty Care Team Description 05/11/2022 Hospital Encounter Surgery [facility] [address] [place], [place] [address] 05/11/2022 Surgery Surgery Domitila, ERIC UNICOMPA RTMENTAL MD Josehp [facility]EE [facility] [address] [place], [place] [address] Scheduled Procedures Name Priority Associated Diagnoses Date/Time REVISION, TOTAL ARTHROPLASTY, Osteoarthritis of knee 05/11/2022 2:45 PM SUPERVISORY AIDE KNEE documented as of this encounter Procedures [...] LAB - BLOOD ORDERABLES Performing Organization Address [facility] Phon e Number [facility] TSH with free T4 reflex (03/04/2009 8:46 AM CDT) P athologist Signature TSH 2.80 0.4 - 5.0 MISYS mU/L Specimen Anatomical Collection Method Collection Time Receive d Time (Source) Location / / Volume Laterality 03/04/2009 8:46 AM 9 6:14 CDT PM CDT Caryl Denise DO LAB - BLOOD ORDERABLES Performing Organization Address [facility] Phon e Number M[facility]YS GGT (03/04/2009 8:46 AM CDT) P athologist Signature GGT 48 0 - 75 U/L MISYS Specimen Anatomical Collection Method Collection Time Receive d Time (Source) Location / / Volume Laterality 03/04/2009 8:46 AM 9 6:14 CDT PM CDT Caryl Denise DO LAB - BLOOD ORDERABLES Performing Organization Address [facility] Code Phon e Number MISYS Vitamin [...] City/[facility]/ZIP Code Phon e Number MISYS documented in this encounter Visit Diagnoses Not on filedocumented in this encounter
--- OUTSIDE RECORDS SUMMARY | 2022-04-25 09:12 | XMS_ITS | Encounter Summary ---
:1955 Author Organization [place] Address [address] [place] [address] Care Team Providers Name Role Phone Unavailable Primary Care Provider Unavailable Encounter Details Date Type Department Care Team Description 03/03/2009 Discharge Summary [facility] Blas Cates, (Fuel Assembler) [facility] [address] [facility] [place] [address] (Wo rk) Social History Tobacco Use Types Packs/Day Years Used Date Smoking Tobacco: Never Assessed Sex Assigned at Date Recorded Not on file documented as of this encounter Progress Notes Interface, Fuel Assembler - 03/30/2009 10:58 PM OTR FLATBED DRIVER FINAL DISCHARGE DIAGNOSES: AXIS I: 1. Major [...] CATES DO MT: SONYA Name: JETT GEORGES MRN: [id number] Account: [id number] : 1955 Admit Date: [id number] Discharge Date: 03/08/2009 Document: [id number] FLATBED DRIVER documented in this encounter Plan of Treatment Upcoming Encounters Date Type Specialty Care Team Description 05/11/2022 Hospital Encounter [facility] [address] [place], [place] [address] 05/11/2022 Surgery Surgery Domitila, ERIC UNICOMPA RTMENTAL MD Joseph ARTHROPLASTY CONVERSION TO [place] TOTAL KNEE [facility]Y [facility] [address] [place], [place] [address] Scheduled Procedures Name Priority Associated Diagnoses Date/Time REVISION, TOTAL ARTHROPLASTY, Osteoarthritis of knee 05/11/2022 2:45 PM OTR FLATBED DRIVER KNEE documented as of this encounter Visit Diagnoses Not on filedocumented in this encounter
--- OUTSIDE RECORDS SUMMARY | 2022-04-25 09:12 | XMS_ITS | Encounter Summary ---
:1955 Author Organization [place] Address [facility] [place] [address] Care Team Providers Name Role Phone Mario Keith MD Primary Care Provider [phone] Encounter Details Date Type Department Care Team Description 07/20/2020 Telephone [facility] Surgical [facility] [address] [place] [address] Social History Tobacco Use Types [...] call back if he changes his mind. SMOKER MACHINE OPERATOR Telephone Encounter - Toni Aponte - 07/20/2020 3:53 PM CST Wero Moser, Pt had bypass 2007 (said at our system, but I don't see here or HE). He's heard that he can get a lap band on top of it... I explained the unlikeliness of that. But also that you might discuss a revision. bmi 40.4 OK to leaved detailed VM SMOKER MACHINE OPERATOR documented in this encounter Plan of Treatment Upcoming Encounters Date Type Specialty Care Team Description 05/11/2022 Hospital Encounter Surgery Joseph Ramesh MD [facility] [address] [place], [place] [address] 05/11/2022 Surgery Surgery Domitila, ERIC UNICOMPA RTMENTAL MD Joseph ARTHROPLASTY CONVERSION TO [place] TOTAL KNEE [facility] [address] [place], [place] [address] Scheduled Procedures Name Priority Associated Diagnoses Date/Time REVISION, TOTAL ARTHROPLASTY, Osteoarthritis of knee 05/11/2022 2:45 PM PIPE SMOKER MACHINE OPERATOR KNEE documented as of this encounter Visit Diagnoses Not on filedocumented in this encounter Care Teams Timber Mill Worker Relationship Specialty Start Date End Date Mario Keith MD PCP - General Internal Medicine 11/28/17 [facility] [address] [place] [address] documented as of this encounter
--- OUTSIDE RECORDS SUMMARY | 2022-04-25 09:12 | XMS_ITS | Encounter Summary ---
:1955 Author Organization [place] Address [facility] [place] [address] Care Team Providers Name Role Phone Unavailable Primary Care Provider Unavailable Encounter Details Date Type Department Care Team Description 03/03/2009 Historic Novelty Maker [facility] Stewart DO [facility] [address] [place] [address] (Wo rk) Social History Tobacco Use Types Packs/Day Years Used Date Smoking Tobacco: Never Assessed Sex Assigned at Date Recorded Not on file documented as of this encounter Progress Notes Interface, Novelty Maker - 04/24/2011 7:16 AM CREATIVE/ART DIRECTOR FINAL CHIEF COMPLAINT: My family was concerned about me. HISTORY OF PRESENT ILLNESS: Jett Georges is a 53-year-old white male who presented to [facility], secondary to increased depression. The patient also states that he was hoping to come into the hospital so he could get on disability. Patient does report a 3-year history of depression and anxiety. He states that it all started when he stopped smoking. He states that he recently talked to a pocket cutter and the pocket cutter has convinced him that it was all [...] patient states that he grew up in [place], [place]. He did graduate from high school. [...] coordination are all within normal limits. DIAGNOSES: [place] I: Major depressive disorder, recurrent, severe without psychotic features. Benzodiazepine dependency and possible alcohol abuse. [place] II: Deferred. [place] III: As per Internal Medicine. [place] IV: Poor insight into his mental health issues. [place] V: GAF: 40. PLAN AND RECOMMENDATIONS: At this time will adjust his antidepressant medications. Will take him off his Ativan with a phenobarbital taper. Will use Seroquel to help control his anxiety. Will get the patient connected with outpatient psychiatry and therapy. Electronically signed on 03/30/2009 22:52 by BLAS CATES DO MT: niecy Name: JETT GEORGES Account: [id number] : 1955 Admitted: [id number] Document: [id number] TIVE/ART DIRECTOR documented in this encounter Plan of Treatment Upcoming Encounters Date Type Specialty Care Team Description 05/11/2022 Hospital Encounter Surgery [facility] MD [facility] [address] [facility] [address] [place], [place] [address] 05/11/2022 Surgery Surgery Domitila, MEDIAL UNICOMPA RTMENTAL MD Joseph ARTHROPLASTY CONVERSION TO [place] TOTAL KNEE [facility] [address] [place], [place] [address] Scheduled Procedures Name Priority Associated Diagnoses Date/Time REVISION, TOTAL ARTHROPLASTY, Osteoarthritis of knee 05/11/2022 2:45 PM CREATIVE/ART DIRECTOR KNEE documented as of this encounter Visit Diagnoses Not on filedocumented in this encounter
--- OUTSIDE RECORDS SUMMARY | 2022-04-25 09:12 | XMS_ITS | Encounter Summary ---
:1955 Author Organization [place] Address [address] [place] [address] Care Team Providers Name Role Phone Unavailable Primary Care Provider Unavailable Encounter Details Date Type Department Care Team Description 03/07/2009 Historic Notes INTERFACED REPORT Interface, Transcript MD mario Social History Tobacco Use Types Packs/Day Years Used Date Smoking Tobacco: Never Assessed Sex Assigned at Date Recorded Not on file documented as of this encounter Progress Notes Interface, Tubing Tester - 08/05/2010 5:35 PM CDT General Information - Has NOT attended OT 13:00 as of: Plan - Plan: Continue to invite to groups to assess. Signatures ESTER DIGGS (MILLER)[Signed 12:38] Authored: General Information, Plan documented in this encounter Plan of Treatment Upcoming Encounters Date Type Specialty Care Team Description 05/11/2022 Hospital Encounter Surgery [facility] [address] [place], [place] [address] 05/11/2022 Surgery Surgery ERIC Ramesh UNICOMPA RTMENTAL MD Joseph [facility]TH[facility]LAST[facility] [address] [place], [place] [address] Scheduled Procedures Name Priority Associated Diagnoses Date/Time REVISION, TOTAL ARTHROPLASTY, Osteoarthritis of knee 05/11/2022 2:45 PM BOW STAPLER KNEE documented as of this encounter Visit Diagnoses Not on filedocumented in this encounter
--- OUTSIDE RECORDS SUMMARY | 2022-04-25 09:12 | XMS_ITS | Encounter Summary ---
:1955 Author Organization [place] Address [address] [place] [address] Care Team Providers Name Role Phone Unavailable Primary Care Provider Unavailable Encounter Details Date Type Department Care Team Description 03/05/2009 Historic [facility] [address] [facility] [facility] [address] [place] [address] (Wo rk) Social History Tobacco Use Types Packs/Day Years Used Date Smoking Tobacco: Never Assessed Sex Assigned at Date Recorded Not on file documented as of this encounter Plan of Treatment Upcoming Encounters Date Type Specialty Care Team Description 05/11/2022 Hospital Encounter Surgery [facility] [address] [place], [place] [address] 05/11/2022 Surgery Surgery Domitila, ERIC UNICOMPA RTMENTAL MD Joseph [facility] KNEE [facility] [address] [place], [place] [address] Scheduled Procedures Name Priority Associated Diagnoses Date/Time REVISION, TOTAL ARTHROPLASTY, Osteoarthritis of knee 05/11/2022 2:45 PM UTILITY WORKER KNEE documented as of this encounter Procedures [...] PM 9 1:15 CDT AM CDT Shukri HANNAH - BEAKER POCT Performing Organization Address City/State/ZIP Code Phon e Number MISYS (ABNORMAL) Glucose by meter (03/05/2009 8:39 AM CDT) P athologist Signature Glucose 130 (H) 60 - 99 MISYS mg/dL Specimen Anatomical Collection Method Collection Time Receive d Time (Source) Location / / Volume Laterality 03/05/2009 8:39 AM 9 8:50 CDT AM CDT Shukri HANNAH - BEAKER POCT Performing Organization Address City/State/ZIP Code Phon e Number MISYS documented in this encounter Visit Diagnoses Not on filedocumented in this encounter
--- OUTSIDE RECORDS SUMMARY | 2022-04-25 09:12 | XMS_ITS | Encounter Summary ---
:1955 Author Organization [place] Address [address] [place] [address] Care Team Providers Name Role Phone Unavailable Primary Care Provider Unavailable Reason for Visit Reason Onset Date Comments Patient Request 10/23/2012 Encounter Details Date Type Department Care Team Description 10/23/2012 Telephone [facility] Weight Alireza White MD Patient Request Management Clinic Ed [facility] [address] [place] [address] [address] [place] [address] [phone] Social History Tobacco Use Types Packs/Day Years [...] 05/11/2022 Hospital Encounter Surgery Joseph Ramesh MD [facility] [address] [place], [place] [address] 05/11/2022 Surgery Surgery ERIC Ramesh UNICOMPA RTMENTAL MD Joseph ARTHROPLASTY CONVERSION TO [place] TOTAL KNEE [facility] [address] [place], [place] [address] Scheduled Procedures Name Priority Associated Diagnoses Date/Time REVISION, TOTAL ARTHROPLASTY, Osteoarthritis of knee 05/11/2022 2:45 PM BLADE GROOVER KNEE documented as of this encounter Visit Diagnoses Not on filedocumented in this encounter
--- OUTSIDE RECORDS SUMMARY | 2022-04-25 09:12 | XMS_ITS | Encounter Summary ---
:1955 Author Organization [place] Address [address] [place] [address] Care Team Providers Name Role Phone Unavailable Primary Care Provider Unavailable Encounter Details Date Type Department Care Team Description 03/08/2009 [facility] [address] [facility] [place] [address] (Wo rk) Social History Tobacco Use Types Packs/Day Years Used Date Smoking Tobacco: Never Assessed Sex Assigned at Date Recorded Not on file documented as of this encounter Plan of Treatment Upcoming Encounters Date Type Specialty Care Team Description 05/11/2022 Hospital Encounter Surgery [facility] [address] [place], [place] [address] 05/11/2022 Surgery Surgery Domitila, ERIC UNICOMPA RTMENTAL MD Joseph [facility] [address] [place], [place] [address] Scheduled Procedures Name Priority Associated Diagnoses Date/Time REVISION, TOTAL ARTHROPLASTY, Osteoarthritis of knee 05/11/2022 2:45 PM CLOTH FINISHING RANGE TENDER KNEE documented as of this encounter Procedures [...]
--- OUTSIDE RECORDS SUMMARY | 2022-04-25 09:12 | XMS_ITS | Encounter Summary ---
:1955 Author Organization [place] Address [address] [place] [address] Care Team Providers Name Role Phone Unavailable Primary Care Provider Unavailable Encounter Details Date Type Department Care Team Description 10/20/2007 Historic Notes INTERFACED REPORT Interface, Transcript onMD Social History Tobacco Use Types Packs/Day Years Used Date Smoking Tobacco: Never Assessed Sex Assigned at Date Recorded Not on file documented as of this encounter Progress Notes Interface, Carpenter Streetcar - 08/06/2010 9:30 PM CDT General Information - How to be addressed Leandro - spare person to Gabriella Foster (sister) notify: - Phone 1: [phone] - spare person #2: Leandro Curiel (father) - Phone 1: [phone] - spare person #3: Nusrat Vera (friend) - Phone 1: [phone] - Patient's Spoken Language, [place]er communication style Advance Directive - Do [...] Considerations - Developmental None Learning Considerations - Confucianist Learning None Considerations Activity-Exercise/Self Care - Ambulation [...] life Values/Beliefs/Spiritual Care - F: Catherine: Does Religious culture/spirituality/ buddhist play an important part in your life? - Would you like Does not wish to have anyone contacted pastoral care/clergy/consumer product advisor notified? Mutuality/Individual Preferences - What information [...] Tolerance, Values/Beliefs/Spiritual Care, Mut uality/Individual Preferences Interface, Carpenter Streetcar - 08/06/2010 9:27 PM CDT Bariatric Consult [...] Ramesh MD [facility] [address] [facility] [address] [place], [place] [address] 05/11/2022 Surgery Surgery Brelay, ERIC UNICOMPA RTMENTAL MD Joseph ARTHROPLASTY CONVERSION TO [place] TOTAL KNEE [facility] [address] [facility] [address] [place], [place] [address] Scheduled Procedures Name Priority Associated Diagnoses Date/Time REVISION, TOTAL ARTHROPLASTY, Osteoarthritis of knee 05/11/2022 2:45 PM HEADWAITER/HEADWAITRESS KNEE documented as of this encounter Visit Diagnoses Not on filedocumented in this encounter
--- OUTSIDE RECORDS SUMMARY | 2022-04-25 09:12 | XMS_ITS | Encounter Summary ---
:1955 Author Organization [place] Address [facility] [place] [address] Care Team Providers Name Role Phone Mario Keith MD Primary Care Provider [phone] Encounter Details Date Type Department Care Team Description 06/20/2012 Abstract M [facility] Weight Michael, Erica Be, Management Clinic Ed lexis PA-C [address] [place] [address] [place] [address] [phone] Social History Tobacco Use Types Packs/Day Years Used Date Smoking Tobacco: Never Assessed Sex Assigned at Date Recorded Not on file documented as of this encounter Plan of Treatment Upcoming Encounters Date Type Specialty Care Team Description 05/11/2022 Hospital Encounter Surgery Joseph Ramesh MD [facility] [address] [place], [place] [address] 05/11/2022 Surgery Surgery ERIC Ramesh UNICOMPA RTMENTAL MD Joseph ARTHROPLASTY CONVERSION TO [place] TOTAL KNEE [facility] [address] [place], [place] [address] Scheduled Procedures Name Priority Associated Diagnoses Date/Time REVISION, TOTAL ARTHROPLASTY, Osteoarthritis of knee 05/11/2022 2:45 PM ALL PURPOSE CLERK KNEE documented as of this encounter Visit Diagnoses Not on filedocumented in this encounter Care Teams Grab Operator Relationship Specialty Start Date End Date Mario Keith MD PCP - General Internal Medicine 11/28/17 [facility] [address] [place] [address] documented as of this encounter
--- OUTSIDE RECORDS SUMMARY | 2022-04-25 09:12 | XMS_ITS | Encounter Summary ---
:1955 Author Organization [place] Address [address] [place] [address]. [place] [address] Care Team Providers Name Role Phone Unavailable Primary Care Provider Unavailable Encounter Details Date Type Department Care Team Description 11/12/2007 Historic Notes INTERFACED REPORT Interface, Transcript MD mario Social History Tobacco Use Types Packs/Day Years Used Date Smoking Tobacco: Never Assessed Sex Assigned at Date Recorded Not on file documented as of this encounter Progress Notes Interface, Concrete Gun Operator - 08/06/2010 8:24 PM CDT BARIATRIC PROGRESS [...] 05/11/2022 Hospital Encounter Surgery Joseph Ramesh MD [facility] [address] [place], [place] [address] 05/11/2022 Surgery Surgery Breien, MEDIAL UNICOMPA RTMENTAL MD Joseph ARTHROPLASTY CONVERSION TO [place] TOTAL KNEE [facility] [address] [facility] [address] [place], [place] [address] Scheduled Procedures Name Priority Associated Diagnoses Date/Time REVISION, TOTAL ARTHROPLASTY, Osteoarthritis of knee 05/11/2022 2:45 PM MANAGER DESKTOP KNEE documented as of this encounter Visit Diagnoses Not on filedocumented in this encounter
--- OUTSIDE RECORDS SUMMARY | 2022-04-25 09:12 | XMS_ITS | Encounter Summary ---
:1955 Author Organization [place] Address [address] [place] [address] Care Team Providers Name Role Phone Unavailable Primary Care Provider Unavailable Encounter Details Date Type Department Care Team Description 10/21/2007 Results Only [facility] Kalpana Ram, [facility] PA-C Results SURGICAL CONSULT [facility] [address] [place] [address] (Wo rk) Social History Tobacco Use Types Packs/Day Years Used Date Smoking Tobacco: Never Assessed Sex Assigned at Date Recorded Not on file documented as of this encounter Plan of Treatment Upcoming Encounters Date Type Specialty Care Team Description 05/11/2022 Hospital Encounter Surgery Joseph Ramesh MD [facility] [address] [place], [place] [address] 05/11/2022 Surgery Surgery ERIC Ramesh UNICOMPA RTMENTAL MD Joseph ARTHROPLASTY CONVERSION TO [place] TOTAL KNEE [facility] [address] [place], [place] [address] Scheduled Procedures Name Priority Associated Diagnoses Date/Time REVISION, TOTAL ARTHROPLASTY, Osteoarthritis of knee 05/11/2022 2:45 PM BLAST FURNACE KEEPER HELPER KNEE documented as of this encounter [...]
--- OUTSIDE RECORDS SUMMARY | 2022-04-25 09:13 | XMS_ITS | Encounter Summary ---
:1955 Author Organization [place] Address [address] [place] [address]. [place] [address] Care Team Providers Name Role Phone Unavailable Primary Care Provider Unavailable Encounter Details Date Type Department Care Team Description 08/25/2007 Historic Notes INTERFACED REPORT Interface, Transcript MD mario Social History Tobacco Use Types Packs/Day Years Used Date Smoking Tobacco: Never Assessed Sex Assigned at Date Recorded Not on file documented as of this encounter Progress Notes Interface, Restaurant Cook - 08/07/2010 12:05 AM CDT BARIATRIC FOLLOW [...] 05/11/2022 Hospital Encounter Surgery Joseph Ramesh MD [facility] [address] [facility] [address] [place], [place] [address] 05/11/2022 Surgery Surgery Breien, MEDIAL UNICOMPA RTMENTAL MD Joseph ARTHROPLASTY CONVERSION TO [place] TOTAL KNEE [facility] [address] [facility] [address] [facility] [address] [place] [address] Scheduled Procedures Name Priority Associated Diagnoses Date/Time REVISION, TOTAL ARTHROPLASTY, Osteoarthritis of knee 05/11/2022 2:45 PM JOURNEYMAN APPRENTICE ELECTRICIANS KNEE documented as of this encounter Visit Diagnoses Not on filedocumented in this encounter
--- OUTSIDE RECORDS SUMMARY | 2022-04-25 09:13 | XMS_ITS | Encounter Summary ---
:1955 Author Organization [place] Address [address] [place] [address] Care Team Providers Name Role Phone Unavailable Primary Care Provider Unavailable Encounter Details Date Type Department Care Team Description 10/20/2007 Operative Report [facility] Em Merida MD (Balling Machine Operator) [address] Results [address] [place] [address] Social History Tobacco Use Types Packs/Day Years Used Date Smoking Tobacco: Never Assessed Sex Assigned at Date Recorded Not on file documented as of this encounter Progress Notes Em Merida - 10/27/2007 10:29 PM CDT FINAL 1st Clinical Recruiter: Kalpana Becker PA-C PREOPERATIVE DIAGNOSIS: 1. Morbid [...] kera Name: JETT GEORGES MRN: [id number] Account: [id number] : 1955 Procedure Date: 10/20/2007 Document: [id number] documented in this encounter Plan of Treatment Upcoming Encounters Date Type Specialty Care Team Description 05/11/2022 Hospital Encounter [facility] [address] [place], [place] [address] 05/11/2022 Surgery Surgery Domitila, ERIC UNICOMPA RTMENTAL MD Joseph ARTHROPLASTY CONVERSION TO [place] TOTAL KNEE [facility] [address] [place], [place] [address] Scheduled Procedures Name Priority Associated Diagnoses Date/Time REVISION, TOTAL ARTHROPLASTY, Osteoarthritis of knee 05/11/2022 2:45 PM FISHING VESSEL CAPTAIN KNEE documented as of this encounter Visit Diagnoses Not on filedocumented in this encounter
--- OUTSIDE RECORDS SUMMARY | 2022-04-25 09:13 | XMS_ITS | Encounter Summary ---
:1955 Author Organization [place] Address [address] [place] [address] Care Team Providers Name Role Phone Unavailable Primary Care Provider Unavailable Encounter Details Date Type Department Care Team Description 10/20/2007 Historic Results INTERFACED REPORT Alireza White MD [address] [facility] [address] [place] [address] (Wo rk) Social History Tobacco Use Types Packs/Day Years Used Date Smoking Tobacco: Never Assessed Sex Assigned at Date Recorded Not on file documented as of this encounter Plan of Treatment Upcoming Encounters Date Type Specialty Care Team Description 05/11/2022 Hospital Encounter [facility] [address] [place], [place] [address] 05/11/2022 Surgery Surgery ERIC Ramesh UNICOMPA RTMENTAL MD Joseph ARTHROPLASTY CONVERSION TO [place] TOTAL KNEE [facility] [address] [place], [place] [address] Scheduled Procedures Name Priority Associated Diagnoses Date/Time REVISION, TOTAL ARTHROPLASTY, Osteoarthritis of knee 05/11/2022 2:45 PM CANARY BREEDER KNEE documented as of this encounter Procedures [...] Results Platelet count (10/20/2007 6:50 PM CDT) athologist Signature Platelet Count 205 150 - 450 MISYS 10e9/L Specimen Anatomical Collection Method Collection Time Receive d Time (Source) Location / / Volume Laterality 10/20/2007 6:50 PM 8 4:43 CDT PM CDT Alireza White MD LAB - BLOOD ORDERABLES Performing Organization Address [facility] Phon e Number MISYS (ABNORMAL) Glucose by meter (10/20/2007 1:37 PM CDT) athologist Signature Glucose 136 (H) 60 - 99 MISYS mg/dL Specimen Anatomical Collection Method Collection Time Receive d Time (Source) Location / / Volume Laterality 10/20/2007 1:37 PM 8 6:15 CDT AM CDT Alireza White MD LAB - BEAKER POCT Performing Organization Address [facility] Phon e Number MISYS (ABNORMAL) Glucose (10/20/2007 6:36 AM CDT) athologist Signature Glucose 125 (H) 60 - 99 MISYS mg/dL Specimen Anatomical Collection Method Collection Time Receive d Time (Source) Location / / Volume Laterality 10/20/2007 6:36 AM 8 6:39 CDT AM CDT Alireza White MD LAB - BLOOD ORDERABLES Performing Organization Address [facility] Phon e Number MISYS Hemoglobin [...]
--- OUTSIDE RECORDS SUMMARY | 2022-04-25 09:13 | XMS_ITS | Encounter Summary ---
:1955 Author Organization [facility] Address [address] [facility] [place] [address] Care Team Providers Name Role Phone Unavailable Primary Care Provider Unavailable Encounter Details Date Type Department Care Team Description 04/07/2007 Consultation [facility] Madhu Toney MD [address] [facility] [place] [address] [id number] (Wo rk) Social History Tobacco Use Types Packs/Day Years Used Date Smoking Tobacco: Never Assessed Sex Assigned at Date Recorded Not on file documented as of this encounter Progress Notes Madhu Toney - 05/20/2007 9:06 PM MOTHER REPAIRER FINAL CHIEF COMPLAINT: Sleep apnea, reflux, hyperlipidemia, [...] include diet pills over 30 years ago, [id number] diets, exercise. His attempts for weight loss, [...] one who had it done down in [place]. The patient is setting up his appointment [...] kathi Name: JETT GEORGES MRN: [id number] Account: [id number] : 1955 Consult Date: 04/07/2007 Document: [id number] ER REPAIRER documented in this encounter Plan of Treatment Upcoming Encounters Date Type Specialty Care Team Description 05/11/2022 Hospital Encounter Surgery Joseph Ramesh MD [facility] [address] [place], [place] [address] 05/11/2022 Surgery Surgery ERIC Ramesh UNICOMPA RTMENTAL MD Joseph ARTHROPLASTY CONVERSION TO [facility] [address] [place], [place] [address] Scheduled Procedures Name Priority Associated Diagnoses Date/Time REVISION, TOTAL ARTHROPLASTY, Osteoarthritis of knee 05/11/2022 2:45 PM MOTHER REPAIRER KNEE documented as of this encounter Visit Diagnoses Not on filedocumented in this encounter
[2022-04-25 12:19] LABS: Albumin* 4.5 g/dL (3.3-5.0); Chloride* 95 mmol/L (96-114); Sodium* 130 mmol/L (135-149)
[2022-04-25 12:20] LABS: Potassium* 5.1 mmol/L (3.6-5.1)
[2022-04-25 12:22] LABS: Alanine Aminotransferase* 22 U/L (4-50); Alkaline Phosphatase* 74 U/L (40-150); Aspartate Amino Transferase* 32 U/L (12-35); Bilirubin Total* 0.3 mg/dL (0.1-1.5); Blood Urea Nitrogen* 6 mg/dL (7-30); Carbon Dioxide* 26 mmol/L (20-32); Creatinine* 0.6 mg/dL (0.5-1.5); Estimated Glomerular Filt Rate 106 ml/min; Glucose* 54 mg/dL (60-115); Total Protein* 7.3 g/dL (6.0-8.3)
[2022-04-25 12:23] LABS: Calcium* 9.2 mg/dL (8.4-10.6)
== END 2022-04-25 09:09 | disposition home or self-care (01) ==
LOC: NFLDREF 09:09
PROVIDERS: PCP Internal Medicine; Visit Provider Internal Medicine
DX: Z01.818 Encounter for other preprocedural examination (principal)
CPT/HCPCS: 80053

== ENCOUNTER 2023-01-04 14:20 | Outpatient (CLI) | payer MEDICARE, BC, SELFPAY | END 2023-01-04 14:21 | disposition home or self-care (01) | LOC: NFLDREF 01-09 15:48 | PROVIDERS: PCP Internal Medicine; Referring Provider Internal Medicine; Visit Provider Internal Medicine | DX: Z01.818 Encounter for other preprocedural examination (principal); E11.9 Type 2 diabetes mellitus without complications; E78.1 Pure hyperglyceridemia; I10 Essential (primary) hypertension; M10.9 Gout, unspecified | CPT/HCPCS: 82043; 82570 ==

== ENCOUNTER 2023-03-29 09:10 | Outpatient (CLI) | payer MEDICARE, BC, SELFPAY | END 2023-03-29 09:11 | disposition home or self-care (01) | LOC: NFLDREF 03-30 08:40 | PROVIDERS: PCP Internal Medicine; Referring Provider Internal Medicine; Visit Provider Internal Medicine | DX: E11.9 Type 2 diabetes mellitus without complications (principal); E87.1 Hypo-osmolality and hyponatremia; I10 Essential (primary) hypertension; D50.9 Iron deficiency anemia, unspecified; E78.1 Pure hyperglyceridemia | CPT/HCPCS: 80053; 80061 ==

== ENCOUNTER 2023-07-29 09:15 | Outpatient (CLI) | payer MEDICARE, BC, SELFPAY | END 2023-07-29 09:16 | disposition home or self-care (01) | LOC: NFLDREF 07-31 07:41 | PROVIDERS: PCP Internal Medicine; Referring Provider Internal Medicine; Visit Provider Internal Medicine | DX: D50.9 Iron deficiency anemia, unspecified (principal); E11.9 Type 2 diabetes mellitus without complications; I10 Essential (primary) hypertension; R53.83 Other fatigue; E78.5 Hyperlipidemia, unspecified; R25.2 Cramp and spasm | CPT/HCPCS: 80053; 80061; 83735; 84443 ==

== ENCOUNTER 2023-10-20 15:51 | Emergency (ER) | payer MEDICARE, BC, SELFPAY ==
[2023-10-20 16:08] VITALS: BP 132/76; PULSE 69; RESP 20; TEMP 36.4; O2SAT 97; BMI 41.8
--- NOTE | 2023-10-20 16:53 | CRLHL7_ITS ---
For Patients: As a result of the Century Cures Act, medical imaging exams and procedure reports are released immediately into your electronic medical record. You may view this report before your referring provider. If you have questions, please contact your health care provider. INDICATION: Swallowed a tooth pick COMPARISON: CT abdomen and pelvis 06/20/2019. TECHNIQUE: CT chest, abdomen and pelvis without intravenous or oral contrast; coronal and sagittal reformats. FINDINGS: No evidence of pneumomediastinum. No abnormal fluid collections within the mediastinum. No radiopaque foreign bodies within the mediastinum. No endobronchial pathology. No pneumothorax or pleural effusion. Normal size cardiac silhouette without any pericardial effusion. Coronary artery calcifications. Gastric bypass surgery. Diffuse fatty infiltration of the liver. No focal hepatic or splenic pathology. No pancreatic pathology. The gallbladder is unremarkable. No adrenal pathology. Kidneys are unremarkable. No retroperitoneal lymphadenopathy. No evidence of abdominal or pelvic ascites. CT study of the pelvis is unremarkable. IMPRESSION: 1. Diffuse fatty infiltration of the liver. 2. Status post gastric bypass surgery. 3. No radiopaque foreign bodies either in the chest, abdomen or pelvis. 4. Negative CT chest, abdomen and pelvis without intravenous contrast. Please note that all CT scans at this facility use dose modulation, iterative reconstruction, and/or weight-based dosing when appropriate to reduce radiation dose to as low as reasonably achievable. Dictated by Marleni Salinas MD @ 10/20/2023 5:40:39 PM (Electronically Signed)
--- OUTSIDE RECORDS SUMMARY | 2023-10-20 17:02 | XMS_ITS | Clinical Summary ---
Author Organization [facility] Address [address] [place] [address] Care Team Providers Care Multimedia Project Manager Name Role Phone Needs Pcp, Assignment Primary Care Provider Source Comments You are receiving this document as you are listed as the primary care provider,follow-up provider, or the patient has been referred to you for consultation.This is in compliance with the Medicare andMedicaid EHR Incentive Program,which states Providers who transition their patient to another setting of careor provider of care or refers their patient to another provider of care shouldprovide summary care record for each transition of care or referral. [facility] Medication Sig Dispensed Refills Start Date End Date Status traZODone (DESYREL) 50 MG tablet Take 2 Tablets (100 mg) by mouth daily at bedtime. 10/25/2022 Active traMADol (ULTRAM) 50 MG tablet SMARTSI Milligram(s) By Mouth 3 Times Daily PRN 12/11/2022 Active simvastatin (ZOCOR) 20 MG tablet Take 1 Tablet (20 mg) by mouth daily at bedtime. 10/20/2022 Active allopurinol (ZYLOPRIM) 300 MG tablet Take 1 Tablet (300 mg) by mouth daily. 11/20/2022 Active gabapentin (NEURONTIN) 300 MG capsule Take 3 Capsules (900 mg) by mouth three times a day. Active colchicine (COLCRYS) 0.6 MG tablet TAKE ONE TABLET BY MOUTH DAILY 90 Tablet 05/31/2023 Active Social History Tobacco Use Types Packs/Day Years Used Date Smoking Tobacco: Never Assessed Sex and Gender Information Value Date Recorded Sex Assigned at Not on file Gender Identity Not on file Sexual Orientation Not on file Plan of Treatment Health Maintenance Due Date Last Done Comments Colon Cancer Screening Plan Due 1955 Hep C Screening (Preventive Services) 1955 Medicare Annual Wellness Visit 1955 PSA Screening Discussion 1955 Cholesterol 1989 COVID-19 Vaccine ( season) 2023 10/03/2022, 02/01/2022, 08/18/2021, Additional history exists Influenza (Season Ended) 2024 022, 02/02/2021, 01/13/2020, Additional history exists Pneumococcal 65+ Yrs (3 - PPSV23 or PCV20) 07/06/2025 07/06/2020, 11/14/2017, 07/04/2012 DTaP/Tdap/Td (3 - Tdap) 09/29/2030 09/29/2020, 01/10 Zoster/Shingles Completed 09/05/2018, 11/14/2017 HepA Aged Out No longer eligi ble based on patient's age to complete this topic HepB Aged Out No longer eligi ble based on patient's age to complete this topic Hib Aged Out No longer eligi ble based on patient's age to complete this topic IPV (Polio) Aged Out No longer eligi ble based on patient's age to complete this topic MCV4 Aged Out No longer eligi ble based on patient's age to complete this topic Care Teams Multimedia Project Manager Relationship Specialty Start Date End Date Needs Pcp, [place] [address] PCP - General 12/13/22
--- OUTSIDE RECORDS SUMMARY | 2023-10-20 17:03 | XMS_ITS | Clinical Summary ---
Author Organization [facility] Address [place], [place] [address] Care Team Providers Care Bridal Stylist Sales Consultant Name Role Phone Mario Keith MD Primary Care Provider [phone] Allergies Active Allergy Reactions Criticality Noted Date Comments Bupropion Hydrobromide Hives 06/20/2012 Medications Medication Sig Dispensed Refills Start Date End Date Status MULTIVITAMIN ORAL None Entered 0 Activ e quetiapine (SEROQUEL) 200 mg tablet Take 1 tablet by mouth at bedtime. 30 tablet 0 12/29/2009 Active DULoxetine (CYMBALTA) 30 mg capsule Take 3 capsules by mouth once daily. needs appt for further refills 90 capsule 0 04/27/2010 Active omeprazole (PRILOSEC) 40 mg capsule Take 40 mg by mouth once daily. Active gabapentin (NEURONTIN) 300 mg capsule Take 300 mg by mouth 3 times daily. Active lisinopril (PRINIVIL; ZESTRIL) 5 mg tablet Take 5 mg by mouth once daily. Active LORazepam (ATIVAN) 1 mg tablet Take 1 mg by mouth 3 times daily. Active aspirin chewable (CHILD ASPIRIN) 81 mg chewable tablet Take 81 mg by mouth once daily with a meal. Active traZODone (DESYREL) 100 mg tablet Take 100 mg by mouth at bedtime. Active simvastatin (ZOCOR) 10 mg tablet Take 1 tablet by mouth once daily with evening meal. 30 tablet 3 01/05/2013 Active traMADoL (ULTRAM) 50 mg tablet Take 1 tablet by mouth once daily. 0 09/28/2019 Active CPAPIndications:STEVEN (obstructive sleep apnea),Obesity, unspecified classification, unspecified obesity type, unspecified whether serious comorbidity present CPAP machine for home use at pressure: 10.4 cmw , Heated humidifier x 1 q 5 yr, Humidifier chamber x 1 q 6 mo, nasal face mask x1 q 3mos, with cushion x 2 q mo, standard tubing x 1 q 3 mo, Headgear x 1 q 6 mo, Filters: Disposable x 2 q mo non-disposable filters x1 q 6mo, Length of Need: 99 months, Frequency of use: Daily 1 Each 11 01/11/2022 Active Active Problems Problem Noted Date Diagnosed Date STEVEN, 10/19/1999, RDI 62 08/09/2016 DM (diabetes mellitus) 01/04/2013 Gastric bypass status for obesity 01/04/2013 HTN (hypertension) 01/04/2013 Major depressive disorder, recurrent episode, un specified 10/18/2009 JUSTIN (generalized anxiety disorder) 10/18/2009 Alcohol abuse, continuous 08/31/2009 Chest pain, non-cardiac 04/03/2006 Other abnormal glucose 04/03/2006 Overview: elevated on admission at 295. No prev. treatment. Obesity, unspecified 04/03/2006 Tobacco use disorder 04/03/2006 Overview: 12 year history of 5 PPD. Quit in December of 2005. Esophageal reflux 04/03/2006 Social History Tobacco Use Types Packs/Day Years Used Date Smoking Tobacco: Former Cigarettes Q uit: 12/02/2011 Smokeless Tobacco: Never Tobacco Cessation:Counseling Given: Yes Alcohol Use Standard Drinks/Week Comments Yes 0 (1 standard drink = 0.6 oz pur e alcohol) 7-8 beers a day Social Connections Answer Date Recorded Frequency of Communication with Friends and Fami ly Not on file 05/20/2021 Financial Resource Strain Answer Date R ecorded Difficulty of Paying Living Expenses Not on file 05/20/2021 Difficulty of Paying Living Expenses Not on file 05/20/2021 Sex and Gender Information Value Date Recorded Sex Assigned at Not on file Gender Identity Not on file Sexual Orientation Not on file Obstetrics History Last Filed [...] 180.3 cm (5' 11) 07/23/2014 1: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 Body Mass Index 40.03 07/23/2014 1: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 Plan of Treatment Health Maintenance Due Date Last Done Comments Pneumococcal series for age 65+ (1 of 2 - PCV) 1960 Tdap 1965 Depression screening for age 12+ 1966 BMI (ht and wt on same day) for age 18+ 1972 Hepatitis C screening for age 18-79 1972 Tetanus booster 1974 Colonoscopy through age 75 11/22/1999 Zoster (shingles) series for age 50+ (1 of 2) 2004 Lipids for age 45-75 01/05/2018 01/05/2013, 04/03/20 06 Medicare Wellness for age 65+ 11/22/2019 COVID-19 vaccine series (2022- season) 2023 08/18/2021, 03/10/2021, 07/24/2020 Influenza for age 65+ 01/19/2024 Procedures Procedure Name Priority Date/Time Associated Diagnosis Comments LIPID PANEL Early AM 01/05/2013 6:25 AM CDT from Last 3 Months or Most Recently Relevant to Health Maintenance Results * (ABNORMAL) Lipid Panel - In AM (01/05/2013 6:25 AM CDT) CHOLESTEROL,TOTA L 204(H) 100 - 199 mg/dL [facility] TRIGLYCERIDES 344(H) <150 mg/dL [facility] HDL CHOLESTEROL 53 >40 mg/dL [facility] CHOL/HDL RATIO 3.85 <4.50 [facility] NON-HDL CHOLESTEROL 151 Undefined mg/dL [facility] LDL CHOLESTEROL 82 <131 mg/dL [facility] PATIENT STATUS Fasting [facility] Blood specimen (specimen) BLOOD SPECIMEN / Unknown 01/05/2013 6:25 AM CDT 01/04/2013 10:00 PM CDT Madhu Rodriguez MD CHEMISTRY [facility] [place]NAL ZIP [address] [place] [address] from Last 3 Months or Most Recently Relevant to Health Maintenance Advance Directives * Full Code (Latest Code Status on File) Date Activated Date Inactivated Comments 01/04/2013 5:51 PM 01/05/2013 5:36 PM Care Teams Bridal Stylist Sales Consultant Relationship Specialty Start Date End Date Mario Keith MD [address] [place] [address] PCP - General Family Practice 07/06/10
--- OUTSIDE RECORDS SUMMARY | 2023-10-20 17:03 | XMS_ITS | Referral Summary ---
Author Organization [facility] Address [address] [place] [address] Care Team Providers Care Assistant Corporate Secretary Name Role Phone Mario Keith MD Primary Care Provider Allergies Active Allergy Reactions Criticality Noted Date Comments Bupropion Hydrobromide Hives 06/20/2012 Medications Medication Sig Dispensed Refills Start Date End Date Status allopurinol (ZYLOPRIM) 300 MG tablet Take 1 tablet by mouth daily 12/15/2020 Active gabapentin (NEURONTIN) 300 MG capsule Take 900 mg by mouth 3 times daily 01/30/2021 Active metFORMIN (GLUCOPHAGE) 500 MG tablet Take 1,000 mg by mouth 2 times daily (with meals) 02/23/2021 Active omeprazole (PRILOSEC) [address] capsule Take 40 mg by mouth daily 02/20/2021 Active QUEtiapine (SEROQUEL) 200 MG tablet Take 200 mg by mouth At Bedtime 02/20/2021 Active sertraline (ZOLOFT) 50 MG tablet Take 100 mg by mouth daily 01/20/2021 Active simvastatin (ZOCOR) 20 MG tablet Take 20 mg by mouth daily (with dinner) 01/24/2021 Active tamsulosin (FLOMAX) 0.4 MG capsule Take 0.4 mg by mouth daily 02/15/2021 Active traZODone (DESYREL) 50 MG tablet Take 50 mg by mouth At Bedtime 02/28/2021 Active glimepiride (AMARYL) 4 MG tablet Take 4 mg by mouth every morning (before breakfast) Active semaglutide (OZEMPIC, 1 MG/DOSE,) 2 MG/1.5ML pen Inject 0.5 mg Subcutaneous every 7 days Active aspirin 81 MG EC tablet Take 81 mg by mouth daily Active senna-docusate (SENOKOT-S/PERICOLA CE) 8.6-50 MG tabletIndications:M echanical failure of prosthetic right knee joint (H24) Take 1-2 tablets by mouth 2 times daily Take while on oral narcotics to prevent or treat constipation. 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 Quit in December of 2005. Essential hypertension DM2 (diabetes mellitus, type 2) STEVEN (obstructive sleep apnea) Social History Tobacco Use Types Packs/Day Years Used Date Smoking Tobacco: Former Smokeless Tobacco: Never Tobacco Cessation:Counseling Given: Not Answered Alcohol Use Standard Drinks/Week Comments Not Currently 3 (1 standard drink = 0.6 oz pur e alcohol) Adolescent Education Answer Date Record ed Getting School Help Needed Not on file 03/03 Sex and Gender Information Value Date Recorded Sex Assigned at Not on file Gender Identity Not on file Sexual Orientation Not on file Last Filed Vital Signs Vital Sign Reading Time Taken Comments Blood Pressure 145/76 05/12/2022 8:23 AM TAIL WORKER Pulse 74 05/12/2022 8:23 AM TAIL WORKER Temperature 36.7 ??C (98 ??F) 05/12/2022 8:23 AM TAIL WORKER Respiratory Rate 16 05/12/2022 8:23 AM TAIL WORKER Oxygen Saturation 96% 05/12/2022 8:23 AM TAIL WORKER Inhaled Oxygen Concentration - - Weight 131.1 kg (289 lb) 04/23/2022 1:00 PM TAIL WORKER Height 180.3 cm (5' 11) 04/23/2022 1:00 PM TAIL WORKER Body Mass Index 40.31 04/23/2022 1:00 PM TAIL WORKER Plan of Treatment Not on file Medical Devices Implanted Type Area Thrill Performer Device Identifier Shelf Expiration Date Model / Serial / Lot Cement Bone Simplex Hv 40g W/O Gentra Implanted:Qty: 2 on 11/28/2017 Cement, Bone N/A: Knee [employer] 04/18/2019 6194-1-001 / / [id number] Description:Implanted into b ilateral knees Imp Bone Cement Simplex W/Gentamicin 6195-1-001 - [id number] Implanted:Qty: 1 on 05/11/2022 by Joseph Ramesh MD at [facility] Cement, Bone Right: Knee [employer] 08/18/2023 6195-1-001 / / [id number] Imp Bone Cement Simplex W/Gentamicin 6195-1-001 - [id number] Implanted:Qty: 1 on 05/11/2022 by Joseph Ramesh MD at [facility] Cement, Bone Right: Knee [employer] 08/18/2023 6195-1-001 / / [id number] Persona Partial Knee System Partial Articular Surface Right Medial Size J 8mm Thickness Implanted:Qty: 1 on 11/28/2017 Total Joint Componen t/Insert Right: Knee [employer] 07/17/2021 23-9238-087-0 8 / / [id number] Persona Partail Knee System Partial Tibia Cemented Size J Left Medial Implanted:Qty: 1 on 11/28/2017 Total Joint Componen t/Insert Left: Knee [employer] 08/17/2026 26-8301-311-0 1 / / [id number] Persona Partial Knee System Partial Femur Cemented Size 6 Left Medial Implanted:Qty: 1 on 11/28/2017 Total Joint Componen t/Insert Left: Knee [employer] 01/17/2027 71-2160-235-0 1 / / [id number] Persona Partial Knee System Partial Articular Surface Left Medial Size J 8mm Thickness Implanted:Qty: 1 on 11/28/2017 Total Joint Componen t/Insert Left: Knee [employer] 08/17/2021 50-8637-298-0 8 / / [id number] Persona Partial Knee System Partial Tibial Cemented Size J Right Medial Implanted:Qty: 1 on 11/28/2017 Total Joint Componen t/Insert Right: Knee [employer] 07/17/2026 91-4605-542-0 2 / / [id number] Persona Partial Knee System Partial Femur Cemented Size 6 Right Medial Implanted:Qty: 1 on 11/28/2017 Total Joint Componen t/Insert Right: Knee [employer] 04/18/2027 49-4889-693-0 2 / / [id number] Knee Tibia Stem 5deg Sz F R [id number] - [id number] Implanted:Qty: 1 on 05/11/2022 by Joseph Ramesh MD at [facility] Total Joint Componen t/Insert Right: Knee [employer] [id number] 12/25/2031 44-1822-526-0 2 / / [id number] Knee Femur Cr Cement Ccr Std Sz 8 R - [id number] Implanted:Qty: 1 on 05/11/2022 by Joseph Ramesh MD at [facility] Total Joint Componen t/Insert Right: Knee [employer] [id number] 08/23/2031 [id number] / / [id number] Imp Patella Zim Knee All Kelley 35mm 72-6643-012-35 - [id number] Implanted:Qty: 1 on 05/11/2022 by Joseph Ramesh MD at [facility] Total Joint Componen t/Insert Right: Knee [employer] [id number] 03/15/2027 41-2954-463-3 5 / / [id number] Surface Artc 14mm Najma Day Cngr 8-11 E-F Kn Rt Tib - [id number] Implanted:Qty: 1 on 05/11/2022 by Joseph Ramesh MD at [facility] Total Joint Componen t/Insert Right: Knee [employer] [id number] 12/01/2026 10-3253-980-1 4 [id number] Procedures Procedure Name Priority Date/Time Associated Diagnosis Comments HEMOGLOBIN A1C (EXTERNAL RESULT) Routine 04/25/2022 9:50 AM TAIL WORKER BASIC METABOLIC PANEL Routine 03/04/2021 8:02 AM CDT LIPID PROFILE STAT 03/03/2021 9:58 AM CDT from Last 3 Months or Most Recently Relevant to Health Maintenance Results * (ABNORMAL) Hemoglobin A1c (External Result) (04/25/2022 9:50 AM TAIL WORKER) Pathologist [facility] Hemoglobin A1C (External) 6.6(A) 0 - 56 % [facility] Blood 04/25/2022 9:50 [address] [facility] - 04/25/2022 9:50 AM [facility] RESULT Provider Outside LAB - HIM EXTERNAL R ESULT Performing Organization Address [facility]/State/ZIP Co de Phone Number [facility] [address] [phone] * (ABNORMAL) Basic metabolic panel (03/04/2021 8:02 AM CDT) Sodium 132(L) 133 - 144 mmol/L 03/04/2021 8:33 AM CDT [facility] Potassium 4.4 3.4 - 5.3 mmol/L 03/04/2021 8:33 AM CDT [facility] Chloride 100 94 - 109 mmol/L 03/04/2021 8:33 AM CDT [facility] Carbon Dioxide (CO2) 26 20 - 32 mmol/L 03/04/2021 8:33 AM CDT [facility] Anion Gap 6 3 - 14 mmol/L 03/04/2021 8:33 AM CDT LABORATORY Urea Nitrogen 6(L) 7 - 30 mg/dL 03/04/2021 8:33 AM CDT LABORATORY Creatinine 0.65(L) 0.66 - 1.25 mg/dL 03/04/2021 8:33 AM CDT LABORATORY Calcium 8.8 8.5 - 10.1 mg/dL 03/04/2021 8:33 AM CDT LABORATORY Glucose 203(H) 70 - 99 mg/dL 03/04/2021 8:33 AM CDT LABORATORY GFR Estimate >90 >60 mL/min/1.7 3m2 03/04/2021 8:33 AM CDT LABORATORY Comment:As of November 27, 2020, eGFR is calculated by the CKD-EPI creatinine equation, without race adjustment. eGFR can be influenced by muscle mass, exercise, and diet. The reported eGFR is an estimation only and is only applicable if the renal function is stable. Blood STRUCTURE OF RIGHT HAND / Unknown Venipuncture / Unknown 03/04/2021 8:02 AM CDT 03/04/2021 8:15 AM CDT Carli Holder PA-C LAB - BLOOD ORDER [facility] [address] [facility] Lab (1st floor, no room number) [place] [address], [facility] [phone] * (ABNORMAL) Lipid Profile (03/03/2021 9:58 AM CDT) Cholesterol 152 <200 mg/dL 03/03/2021 10:52 AM CDT LABORATORY Triglycerides 168(H) <150 mg/dL 03/03/2021 10:52 AM CDT LABORATORY Direct Measure HDL 52 >=40 mg/dL 03/03/2021 10:52 AM CDT LABORATORY LDL Cholesterol Calculated 66 <=100 mg/dL 03/03/2021 10:52 AM CDT LABORATORY Non HDL Cholesterol 100 <130 mg/dL 03/03/2021 10:52 AM CDT LABORATORY Blood STRUCTURE OF LEFT UPPER LIMB / Unknown Venipuncture / Unknown 03/03/2021 9:58 AM CDT 03/03/2021 10:07 AM CDT Narrative LABORATORY - 03/03/2021 10:52 AM CDT Cholesterol Desirable: ??<200 mg/dL Triglycerides Normal: ??Less than 150 mg/dL Borderline High: ??150-199 mg/dL High: ??200-499 mg/dL Very High: ??Greater than or equal to 500 mg/dL Direct Measure HDL Female: ??Greater than or equal to 50 mg/dL Male: ??Greater than or equal to 40 mg/dL LDL Cholesterol Desirable: ??<100mg/dL Above Desirable: ??100-129 mg/dL Borderline High: ??130-159 mg/dL High: ??160-189 mg/dL Very High: ??>= 190 mg/dL Non HDL Cholesterol Desirable: ??130 mg/dL Above Desirable: ??130-159 mg/dL Borderline High: ??160-189 mg/dL High: ??190-219 mg/dL Very High: ??Greater than or equal to 220 mg/dL Deandre Alvarez MD LAB - BLOOD ORDERABL ES LABORATORY [facility] [address] [facility] Lab (1st floor, no room number) [place] [address], [facility] [phone] from Last 3 Months or Most Recently Relevant to Health Maintenance Advance Directives For more information, please contact: [phone] * Full Code (Latest Code Status on File) Date Activated Date Inactivated Comments 05/11/2022 4:57 PM 05/12/2022 1:34 PM All basic and advanced life-sustaining interventions are performed as appropriate Question Answer Comments Code status determined by: Discussion with abade nt/ legal decision maker * Full Code Date Activated Date Inactivated Comments 03/03/2021 3:38 PM 03/06/2021 6:26 PM All basic and advanced life-sustaining interventions are performed as appropriate Question Answer Comments Code status determined by: Discussion with rommel nt/ legal decision maker Care Teams Assistant Corporate Secretary Relationship Specialty Start Date End Date Mario Keith MD [address] [address] PCP - General Internal Medicine 11/28/17
--- OUTSIDE RECORDS SUMMARY | 2023-10-20 17:03 | XMS_ITS | Encounter Summary ---
Author Organization [place] Address [facility] [place] [address] Care Team Providers Care Community Nutrition Educator Name Role Phone Mario Keith MD Primary Care Provider Reason for Visit * Reason Onset Date Comments Medication Question 05/11/2022 Pharmacy is requesting a call back on the prescription for Eloquis. Please call them back to advise Encounter Details Date Type Department Care Team (Late st Contact Info) Description 05/11/2022 Telephone [facility] [address] [place] [phone] Joseph Ramesh MD [facility] [address] [facility] [address] [place] [address] Medication Question (Pharmacy is requesting a call back on the prescription for Eloquis. Please call them back to advise) Social History Tobacco Use Types Packs/Day Years Used Date Smoking Tobacco: Former Smokeless Tobacco: Never Alcohol Use Standard Drinks/Week Comments Not Currently 3 (1 standard drink = 0.6 oz pur e alcohol) Sex and Gender Information Value Date Recorded Sex Assigned at Not on file Gender Identity Not on file Sexual Orientation Not on file COVID-19 Exposure Response Date Recorded In the last 10 days, have yo u been in contact with someone who was confirmed or suspected to have Coronavirus/COVID-19? 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 Pharmacy is requesting a call back on the prescription for Eloquis. Please call them back to advise Action Taken: Other: [email or web address] Domitila Travel Screening: Not Applicable 2 ONS ELECTRICAL ENGINEERING OFFICER documented in this encounter Plan of Treatment Not on file documented as of this encounter Visit Diagnoses Not on filedocumented in this encounter Care Teams Community Nutrition Educator Relationship Specialty Start Date End Date Mario Keith MD [address] [address] PCP - General Internal Medicine 11/28/17 documented as of this encounter
--- OUTSIDE RECORDS SUMMARY | 2023-10-20 17:03 | XMS_ITS | Encounter Summary ---
Author Organization [place] Address [address] [facility] [place] [address] Care Team Providers Care Floor Sweeper Name Role Phone Mario Keith MD Primary Care Provider Encounter Details Date Type Department Care Team (Late st Contact Info) Description 06/20/2012 Abstract [facility] [place] [address] [place] [phone] Erica Rodriguez PA-C [address] [place] [address] Social History Tobacco Use Types Packs/Day Years Used Date Smoking Tobacco: Never Assessed Sex and Gender Information Value Date Recorded Sex Assigned at Not on file Gender Identity Not on file Sexual Orientation Not on file documented as of this encounter Plan of Treatment Not on file documented as of this encounter Visit Diagnoses Not on filedocumented in this encounter Care Teams Floor Sweeper Relationship Specialty Start Date End Date Mario Keith MD [facility] [address] [place] [address] PCP - General Internal Medicine 11/28/17 documented as of this encounter
--- OUTSIDE RECORDS SUMMARY | 2023-10-20 17:03 | XMS_ITS | Clinical Summary ---
Author Organization [place] Address [address] [place] [address] Care Team Providers Care Trial Examiner Name Role Phone Mario Keith MD Primary [...] Comments Blood Pressure 145/76 05/12/2022 8:23 AM SAP BI ARCHITECT Pulse 74 05/12/2022 8:23 AM SAP BI ARCHITECT Temperature 36.7 ??C (98 ??F) 05/12/2022 8:23 AM SAP BI ARCHITECT Respiratory Rate 16 05/12/2022 8:23 AM SAP BI ARCHITECT Oxygen Saturation 96% 05/12/2022 8:23 AM SAP BI ARCHITECT Inhaled Oxygen Concentration - - Weight 131.1 kg (289 lb) 04/23/2022 1:00 PM SAP BI ARCHITECT Height 180.3 cm (5' 11) 04/23/2022 1:00 PM SAP BI ARCHITECT Body Mass Index 40.31 04/23/2022 1:00 PM SAP BI ARCHITECT Plan of Treatment Health Maintenance Due Date Last Done Comments ADVANCE CARE PLANNING 1955 ANNUAL REVIEW OF HM ORDERS 1954 CT COLONOGRAPHY 1954 DEPRESSION ACTION PLAN 1954 DIABETIC FOOT EXAM 1954 EYE EXAM 1954 FIT 1954 FLEX SIG 1954 MICROALBUMIN 1954 PHQ-9 1954 sDNA (Cologuard) 1954 COLONOSCOPY 1964 COLORECTAL CANCER SCREENING 1964 HEPATITIS C SCREENING 1972 LUNG CANCER SCREENING 2004 RSV VACCINE ( & 60+) (1 - 1-dose 60+ series) 2014 AORTIC ANEURYSM SCREENING (SYSTEM ASSIGNED) 11/22/2019 FALL RISK ASSESSMENT 11/22/2019 MEDICARE ANNUAL WELLNESS VISIT 11/22/2019 LIPID 03/03/2022 03/03/2021 BMP 03/04/2022 03/04/2021, 02/17, 11/29/2017, Additional history exists A1C 10/24/2022 04/25/2022, 02/17, 11/29/2017 Pneumococcal Vaccine: 65+ Years (3 of 3 - PPSV23 or PCV20) 11/14/2022 07/06/2020, 11/14/2017, 07/04/2012 COVID-19 Vaccine ( season) 2023 02/01/2022, 08/18/2021, 08/18/2021, Additional history exists INFLUENZA VACCINE (Season Ended) 2024 01/18/2022, 02/02/2021, 01/13/2020, Additional history exists DTAP/TDAP/TD IMMUNIZATION (3 - Td or Tdap) 09/29/2030 09/29/2020, 01/10/2010 ZOSTER IMMUNIZATION Completed 09/05/2018, 8 HPV IMMUNIZATION Aged Out No longer e ligible based on patient's age to complete this topic IPV IMMUNIZATION Aged Out No longer e ligible based on patient's age to complete this topic MENINGITIS IMMUNIZATION Aged Out No l onger eligible based on patient's age to complete this topic RSV MONOCLONAL ANTIBODY Aged Out No l onger eligible based on patient's age to complete this topic Medical Devices Implanted Type Area Laminating Machine Feeder Device Identifier Shelf Expiration Date Model / Serial / Lot Cement Bone Simplex Hv 40g W/O Gentra Implanted:Qty: 2 on 11/28/2017 Cement, Bone N/A: Knee [employer] 04/18/2019 6194-1-001 / / [id number] Description:Implanted into b ilateral knees Imp Bone Cement Simplex W/Gentamicin 6195-1-001 - [id number] Implanted:Qty: 1 on 05/11/2022 by Joseph Ramesh MD at [facility] Cement, Bone Right: Knee [employer] 08/18/2023 6195-1-001 / / [id number] Imp Bone Cement Simplex W/Gentamicin 6195-1-001 - [id number] Implanted:Qty: 1 on 05/11/2022 by Joseph Ramesh MD at [facility] Cement, Bone Right: Knee [employer] 08/18/2023 6195-1-001 / / [id number] Persona Partial Knee System Partial Articular Surface Right Medial Size J 8mm Thickness Implanted:Qty: 1 on 11/28/2017 Total Joint Componen t/Insert Right: Knee [employer] 07/17/2021 11-9503-351-0 8 / / [id number] Persona Partail Knee System Partial Tibia Cemented Size J Left Medial Implanted:Qty: 1 on 11/28/2017 Total Joint Componen t/Insert Left: Knee [employer] 08/17/2026 55-7810-903-0 1 / / [id number] Persona Partial Knee System Partial Femur Cemented Size 6 Left Medial Implanted:Qty: 1 on 11/28/2017 Total Joint Componen t/Insert Left: Knee [employer] 01/17/2027 87-5860-767-0 1 / / [id number] Persona Partial Knee System Partial Articular Surface Left Medial Size J 8mm Thickness Implanted:Qty: 1 on 11/28/2017 Total Joint Componen t/Insert Left: Knee [employer] 08/17/2021 98-0763-583-0 8 / / [id number] Persona Partial Knee System Partial Tibial Cemented Size J Right Medial Implanted:Qty: 1 on 11/28/2017 Total Joint Componen t/Insert Right: Knee [employer] 07/17/2026 75-8162-186-0 2 / / [id number] Persona Partial Knee System Partial Femur Cemented Size 6 Right Medial Implanted:Qty: 1 on 11/28/2017 Total Joint Componen t/Insert Right: Knee [employer] 04/18/2027 87-7539-964-0 2 / / [id number] Knee Tibia Stem 5deg Sz F R [id number] - [id number] Implanted:Qty: 1 on 05/11/2022 by Joseph Ramesh MD at [facility] Total Joint Componen t/Insert Right: Knee [employer] [id number] 12/25/2031 60-5513-086-0 2 / / [id number] Knee Femur Cr Cement Ccr Std Sz 8 R - [id number] Implanted:Qty: 1 on 05/11/2022 by Joseph Ramesh MD at [facility] Total Joint Componen t/Insert Right: Knee [employer] [id number] 08/23/2031 [id number] / / [id number] Imp Patella Zim Knee All Kelley 35mm 61-8875-935-35 - [id number] Implanted:Qty: 1 on 05/11/2022 by Joseph Ramesh MD at [facility] Total Joint Componen t/Insert Right: Knee [employer] [id number] 03/15/2027 24-3216-302-3 [id number] Surface Artc 14mm Najma Day Cngr 8-11 E-F Kn Rt Tib - [id number] Implanted:Qty: 1 on 05/11/2022 by Joseph Ramesh MD at [facility] Total Joint Componen t/Insert Right: Knee [employer] [id number] 12/01/2026 80-2144-849-1 [id number] Procedures Procedure Name Priority Date/Time Associated Diagnosis Comments HEMOGLOBIN A1C (EXTERNAL RESULT) Routine 04/25/2022 9:50 AM SAP BI ARCHITECT BASIC METABOLIC PANEL Routine 03/04/2021 8:02 AM CDT LIPID PROFILE STAT 03/03/2021 9:58 AM CDT from Last 3 Months or Most Recently Relevant to Health Maintenance Results * (ABNORMAL) Hemoglobin A1c (External Result) (04/25/2022 9:50 AM SAP BI ARCHITECT) Hemoglobin A1C (External) 6.6(A) 0 - 56 % [facility] Blood 04/25/2022 9:50 AM SAP BI ARCHITECT Narrative [facility] - 04/25/2022 9:50 AM [facility] RESULT Provider Outside LAB - HIM EXTERNAL R ESULT Performing Organization Address [facility]/State/ZIP Co de Phone Number [facility] [address] [phone] * (ABNORMAL) Basic metabolic panel (03/04/2021 8:02 [...] PA-C LAB - BLOOD ORDER [facility] Acute Care Lab [address] Lab (1st floor, no room number) [place] [address], [facility] [phone] * (ABNORMAL) Lipid Profile (03/03/2021 9:58 AM [...] Alvarez MD LAB - BLOOD ORDERABL ES [facility] [address] [facility] (1st floor, no room number) [place] [address], [facility] [phone] from Last 3 Months or Most Recently Relevant to Health Maintenance Advance Directives For more information, please contact: [phone] * Full Code (Latest Code Status on File) Date Activated Date Inactivated Comments 05/11/2022 4:57 PM 05/12/2022 1:34 PM All basic and advanced life-sustaining interventions are performed as appropriate Question Answer Comments Code status determined by: Discussion with patie nt/ legal decision maker * Full Code Date Activated Date Inactivated Comments 03/03/2021 3:38 PM 03/06/2021 6:26 PM All basic and advanced life-sustaining interventions are performed as appropriate Question Answer Comments Code status determined by: Discussion with patie nt/ legal decision maker Care Teams Trial Examiner Relationship Specialty Start Date End Date Mario Keith MD [address] [address] PCP - General Internal Medicine 11/28/17
--- NOTE | 2023-10-20 17:23 | ED.GENADULT ---
HPI - General Adult General Date Seen: 10/20/23 Chief complaint: Skin/Abscess/Foreign Body Stated complaint: Swallowed toothpick Time Seen by Provider: 10/20/23 16:04 Source: patient Mode of arrival: ambulatory Limitations: no limitations History of Present Illness HPI narrative: Patient is found in triage with a toothpick in his mouth. He reports that while simultaneously drinking water from a straw and chewing on a toothpick he accidently swallowed toothpick whole . This happened about two hours prior to arrival. He has no pain and is drinking water without issue. Patient is a 59-year-old gentleman who presents to the emergency after swelling a toothpick approximately 2 hours ago, he is otherwise fine, ate some popcorn after this drank some water and has no problems at all no nausea vomiting. He tells me he has been tune on toothpicks for the last 14 years. In fact I find him in room 1 chewing on a toothpick. A promptly told him to take the toothpick out of his mouth and quit chewing. No previous history of foreign body retrieval as, he does have a history of a Jame-en-Y done 14 years ago. Relieving factors: none Exacerbating factors: none Associated symptoms: denies other symptoms Related Data Home Medications ?Medication ?Instructions ?Recorded ?Confirmed aspirin 81 mg tablet,delayed 81 mg PO QDAY 11/27/21 07/30/23 release meloxicam 15 mg tablet 15 mg PO QDAY 11/27/21 07/30/23 peg 3350-electrolytes 236 240 ml PO .4000mL 02/09/22 07/30/23 gram-22.74 gram-6.74 gram-5.86 gram solution (Golytely) oxycodone 5 mg tablet 5 mg PO ONCE PRN 10/01/22 07/30/23 colchicine 0.6 mg tablet 0.6 mg PO QDAY 01/07/23 07/30/23 Previous Rx's ?Medication ?Instructions ?Recorded hydrocodone 5 mg-acetaminophen 325 1 tab PO Q4-6H PRN pain #20 tabs 03/13/ mg tablet hydrocodone 5 mg-acetaminophen 325 1 tab PO Q8H PRN pain #10 tabs 03/19/ mg tablet metformin 500 mg tablet 1,000 mg (2 x 500 mg) PO BID #360 12/21/22 tabs tamsulosin 0.4 mg capsule 0.4 mg PO QDAY BPH #90 caps 01/18/23 semaglutide 0.25 mg or 0.5 mg (2 See Rx Instructions .Route 04/02/23 mg/1.5 mL) subcutaneous pen .COMPLEX #1.5 mL injector simvastatin 20 mg tablet 20 mg PO .hs Hyperlipidemia #90 04/18/23 tabs glimepiride 4 mg tablet 4 mg PO QDAY #90 tabs 06/07/23 ketoconazole 2 % shampoo 1 applic topical 3XW #120 mL 07/03/23 lisinopril 20 mg tablet 20 mg PO QDAY Hypertension #90 tabs 07/26/23 omeprazole 40 mg capsule,delayed 40 mg PO DAILY GERD #90 caps 07/29/23 release quetiapine 200 mg tablet 200 mg PO QDAY Pain #90 tabs 07/29/23 trazodone 50 mg tablet 100 mg (2 x 50 mg) PO .hs Insomnia 07/29/23 #180 tabs allopurinol 300 mg tablet 300 mg PO QDAY Gout #90 tabs 08/15/23 tramadol 50 mg tablet 100 mg (2 x 50 mg) PO TID PRN pain 09/04/23 #180 tabs sertraline 50 mg tablet 100 mg (2 x 50 mg) PO QDAY Anxiety 09/24/23 #180 tabs duloxetine 30 mg capsule,delayed 30 mg PO QDAY #30 caps 10/03/23 release gabapentin 300 mg capsule 900 mg (3 x 300 mg) PO TID #270 10/03/23 caps tirzepatide 7.5 mg/0.5 mL 7.5 mg (0.5 mL) subcut QWEEK #2 mL 10/16/23 subcutaneous pen injector (Mg) Allergies Allergy/AdvReac Type Severity Reaction Status Date / Time No Known Allergies Allergy Verified 07/30/23 08:12 Review of Systems Status of ROS: Reports: 10 or more systems reviewed and unremarkable except as noted in History and below [facility] Medical History Radiculopathy ?M54.10 - Radiculopathy, site unspecified (ICD-10) BPH (benign prostatic hyperplasia) ?N40.0 - Benign prostatic hyperplasia without lower urinary tract symptoms (ICD-10) GERD (gastroesophageal reflux disease) ?K21.9 - Gastro-esophageal reflux disease without esophagitis (ICD-10) Insomnia ?G47.00 - Insomnia, unspecified (ICD-10) Pre-op exam ?Z01.818 - Encounter for other preprocedural examination (ICD-10) Seborrheic dermatitis of scalp ?L21.9 - Seborrheic dermatitis, unspecified (ICD-10) DVT (deep venous thrombosis) ?I82.409 - Acute embolism and thrombosis of unspecified deep veins of unspecified lower extremity (ICD-10) Morbid obesity with BMI of 40.0-44.9, adult ?E66.01 - Morbid (severe) obesity due to excess calories (ICD-10) ?Z68.41 - Body mass index [BMI] 40.0-44.9, adult (ICD-10) Peripheral neuropathy ?G62.9 - Polyneuropathy, unspecified (ICD-10) Type 2 diabetes mellitus ?E11.9 - Type 2 diabetes mellitus without complications (ICD-10) Osteoarthritis ?M19.90 - Unspecified osteoarthritis, unspecified site (ICD-10) Iron deficiency anemia ?D50.9 - Iron deficiency anemia, unspecified (ICD-10) Incomplete right bundle branch block (RBBB) ?I45.10 - Unspecified right bundle-branch block (ICD-10) Hyponatremia ?E87.1 - Hypo-osmolality and hyponatremia (ICD-10) Hypertriglyceridemia ?E78.1 - Pure hyperglyceridemia (ICD-10) Hypertension ?I10 - Essential (primary) hypertension (ICD-10) Headache disorder (05/2016) ?R51.9 - Headache, unspecified (ICD-10) Gout ?M10.9 - Gout, unspecified (ICD-10) Anxiety ?F41.9 - Anxiety disorder, unspecified (ICD-10) Surgical History 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) ?Z96.653 - Presence of artificial knee joint, bilateral (ICD-10) History of tonsillectomy ?Z90.89 - Acquired absence of other organs (ICD-10) History of inguinal hernia repair ?Z98.890 - Other specified postprocedural states (ICD-10) ?Z87.19 - Personal history of other diseases of the digestive system (ICD-10) History of gastric bypass (2009) ?Z98.84 - Bariatric surgery status (ICD-10) Family History Brother Colon cancer Social History Narrative: , 2 adult kids disabled due to joint pains does not exercise but 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 excessive drinking alcohol- 24 beers/week non-smoker HX tobacco use Smoking Status: Former smoker What tobacco products do you use: cigarettes Smoking quit date/years: <= 15 years ago Do you use any of these nicotine containing products: None How often do you have a drink containing alcohol: monthly or less How often do you have six or more drinks on one occasion: Never AUDIT-C Alcohol total score: 1 Non-prescribed substance use: denies use Little interest or pleasure in doing things: several days Feeling down, depressed, or hopeless: not at all Exam Narrative: Exam Narrative: I find him sitting in his room. His oropharynx is normal, his abdomen is soft and obese, there is no guarding no organomegaly scars from previous surgery are noted. Chest is good air entry bilaterally heart sounds are normal. Neck is normal. Const: Vital Signs, click to edit/add: Vital Signs - 24 hr 10/20/23 16:08 Temperature 97.6 F Pulse Rate [Pulse Oximeter] 69 Respiratory Rate 20 Blood Pressure [Ri ght Upper Arm] 132/76 Pulse Oximetry 97 Oxygen Delivery Me thod Room Air Documenting provider has reviewed patient's vital signs: yes Course Course ED Course: I discussed with GI at [facility], patient is eating and drinking normally, since this occurred he has had popcorn in drinking fluids with no problems at all. He is having no abdominal pain, you GI felt that no it would be unlikely they be able to retrieve the toothpick. At this point. And he the patient should monitor for abdominal pain signs of obstruction and come back. Patient was requesting to leave, I would did manage him tell me this information. And he will return if problems any problem Vital Signs Vital signs: Initial Vital Signs Temperature 97.6 F 10/20/23 16:08 Temperature Source Temporal Artery Scan 10/20/23 16:08 Pulse Rate 69 10/20/23 16:08 Respiratory Rate 20 10/20/23 16:08 Blood Pressure 132/76 10/20/23 16:08 Blood Pressure Mean 94 10/20/23 16:08 Pulse Oximetry 97 10/20/23 16:08 Oxygen Delivery Method Room Air 10/20/23 16:08 Vital Signs Temperature 97.6 F 10/20/23 16:08 Pulse Rate 69 10/20/23 16:08 Respiratory Rate 20 10/20/23 16:08 Blood Pressure 132/76 10/20/23 16:08 Pulse Oximetry 97 10/20/23 16:08 Oxygen Delivery Method Room Air 10/20/23 16:08 Temperature 97.6 F 10/20/23 16:08 Pulse Rate 69 10/20/23 16:08 Respiratory Rate 20 10/20/23 16:08 Blood Pressure 132/76 10/20/23 16:08 Pulse Oximetry 97 10/20/23 16:08 Oxygen Delivery Method Room Air 10/20/23 16:08 Medical Decision Making MDM Narrative Medical decision making narrative: During this evaluation of this patient I considered multiple differential diagnosis is which included the life-threatening such as appendicitis, aortic aneurysm, mesenteric ischemia, bowel perforation, volvulus, and bowel obstruction. Other differential diagnosis is include but are not limited to cholecystitis, pancreatitis, hepatitis, gastritis, GERD, diverticulitis, peptic ulcer disease, pyelonephritis/UTI, renal colic/stone, testicular torsion as well as other acute scrotal processes, inflammatory bowel disease, as well as other etiologies. Imaging Data CT Chest/Ab/Pelvis: Radiologist's impression: Patient: JETT GEORGES Facility:?[facility] Patient ID:?[id number] Site Patient ID:?[id number]. Site :?[id number] Study:?CT-Chest/Abd/Pelvis W/O-10/20/2023 5:33:57 PM Ordering Physician:Dariel Smart Final Report: INDICATION: Swallowed a tooth pick COMPARISON: CT abdomen and pelvis 06/20/2019. TECHNIQUE: CT chest, abdomen and pelvis without intravenous or oral contrast; coronal and sagittal reformats. FINDINGS: No evidence of pneumomediastinum. No abnormal fluid collections within the mediastinum. No radiopaque foreign bodies within the mediastinum. No endobronchial pathology. No pneumothorax or pleural effusion. Normal size cardiac silhouette without any pericardial effusion. Coronary artery calcifications. Gastric bypass surgery. Diffuse fatty infiltration of the liver. No focal hepatic or splenic pathology. No pancreatic pathology. The gallbladder is unremarkable. No adrenal pathology. Kidneys are unremarkable. No retroperitoneal lymphadenopathy. No evidence of abdominal or pelvic ascites. CT study of the pelvis is unremarkable. IMPRESSION: 1. Diffuse fatty infiltration of the liver. 2. Status post gastric bypass surgery. 3. No radiopaque foreign bodies either in the chest, abdomen or pelvis. 4. Negative CT chest, abdomen and pelvis without intravenous contrast. Please note that all CT scans at this facility use dose modulation, iterative reconstruction, and/or weight-based dosing when appropriate to reduce radiation dose to as low as reasonably achievable. Dictated by Marleni Salinas MD @ 10/20/2023 5:40:39 PM (Electronic Signature) Discharge Plan Discharge Clinical Impression: Foreign body ingestion Patient Disposition: Home, Self-Care Condition: Stable Additional Instructions: Lots of fluids, normal diet, if you develop abdominal pain, nausea vomiting, or inability to pass her stools, or signs of obstruction, you need to come back. I hope you will be able to pass this without problems. The Discharge Diet: Regular Prescriptions: No Action colchicine 0.6 mg tablet 0.6 mg PO QDAY meloxicam 15 mg tablet 15 mg PO QDAY Patient Comments: TAKE ONE TABLET BY MOUTH DAILY aspirin 81 mg tablet,delayed release (DR/EC) 81 mg PO QDAY hydrocodone-acetaminophen 5-325 mg tablet 1 tab PO Q4-6H PRN (Reason: pain) Qty: 20 0RF peg 3350-electrolytes [Golytely] 236-22.74-6.74 -5.86 gram recon soln 240 ml PO .4000mL Patient Comments: 4000 ml once Rx Instructions: until fecal effluent is clear hydrocodone-acetaminophen 5-325 mg tablet 1 tab PO Q8H MDD 6 PRN (Reason: pain) Qty: 10 0RF oxycodone 5 mg tablet 5 mg PO ONCE PRN metformin 500 mg tablet 1,000 mg PO BID Qty: 360 2RF tamsulosin 0.4 mg capsule 0.4 mg PO QDAY Qty: 90 4RF Patient Comments: TAKE ONE CAPSULE BY MOUTH DAILY Ozempic 0.25 mg or 0.5 mg(2 mg/1.5 mL) pen injector See Rx Instructions .ROUTE .COMPLEX Qty: 1.5 5RF Dose Instruction: INJECT 0.5MG SUBCUTANEOUSLY ONCE WEEKLY. Rx Instructions: INJECT 0.5MG SUBCUTANEOUSLY ONCE WEEKLY. simvastatin 20 mg tablet 20 mg PO .hs Qty: 90 3RF glimepiride 4 mg tablet 4 mg PO QDAY Qty: 90 1RF ketoconazole 2 % shampoo 1 applic topical 3XW Qty: 120 0RF lisinopril 20 mg tablet 20 mg PO QDAY Qty: 90 2RF Patient Comments: take 1 tablet by mouth daily trazodone 50 mg tablet 100 mg PO .hs Qty: 180 0RF omeprazole 40 mg capsule,delayed release(DR/EC) 40 mg PO DAILY Qty: 90 0RF quetiapine 200 mg tablet 200 mg PO QDAY Qty: 90 2RF Patient Comments: TAKE ONE TABLET BY MOUTH AT BEDTIME allopurinol 300 mg tablet 300 mg PO QDAY Qty: 90 2RF Patient Comments: TAKE 1 TABLET BY MOUTH DAILY tramadol 50 mg tablet 100 mg PO TID PRN (Reason: pain) Qty: 180 0RF sertraline 50 mg tablet 100 mg PO QDAY Qty: 180 0RF duloxetine 30 mg capsule,delayed release(DR/EC) 30 mg PO QDAY Qty: 30 0RF gabapentin 300 mg capsule 900 mg PO TID Qty: 270 0RF Mounjaro 7.5 mg/0.5 mL pen injector 7.5 mg subcut QWEEK Qty: 2 1RF Follow Up/Referrals: Mario Keith MD [Primary Care Provider] - Stand Alone Forms: shipbeat Info Instructions
== END 2023-10-20 18:37 | disposition home or self-care (01) ==
PROVIDERS: Emergency Provider Family Medicine; PCP Internal Medicine
DX: T18.0XXA Foreign body in mouth, initial encounter (principal)
CPT/HCPCS: 71250; 74176; 99284; 99285

== ENCOUNTER 2024-01-15 08:06 | Outpatient (CLI) | payer MEDICARE, BC, SELFPAY ==
--- OUTSIDE RECORDS SUMMARY | 2024-01-15 08:09 | XMS_ITS | Referral Summary ---
Author Organization [place] Address [address] [place] [address] Care Team Providers Care Parts Room Assistant Name Role Phone Mario Keith MD Primary [...] Comments Blood Pressure 145/76 05/12/2022 8:23 AM COIN ROLLING MACHINE OPERATOR Pulse 74 05/12/2022 8:23 AM COIN ROLLING MACHINE OPERATOR Temperature 36.7 ??C (98 ??F) 05/12/2022 8:23 AM COIN ROLLING MACHINE OPERATOR Respiratory Rate 16 05/12/2022 8:23 AM COIN ROLLING MACHINE OPERATOR Oxygen Saturation 96% 05/12/2022 8:23 AM COIN ROLLING MACHINE OPERATOR Inhaled Oxygen Concentration - - Weight 131.1 kg (289 lb) 04/23/2022 1:00 PM COIN ROLLING MACHINE OPERATOR Height 180.3 cm (5' 11) 04/23/2022 1:00 PM COIN ROLLING MACHINE OPERATOR Body Mass Index 40.31 04/23/2022 1:00 PM COIN ROLLING MACHINE OPERATOR Plan of Treatment Not on file Medical Devices Implanted Type Area Electron Beam Photo Mask Technician Device Identifier Shelf Expiration Date Model / Serial / Lot Cement Bone Simplex Hv 40g W/O Gentra Implanted:Qty: 2 on 11/28/2017 Cement, Bone N/A: Knee [employer] 04/18/2019 6194-1-001 / / [id number] Description:Implanted into b ilateral knees Imp Bone Cement Simplex W/Gentamicin 6195-1-001 - [id number] Implanted:Qty: 1 on 05/11/2022 by Joseph Ramesh MD at [facility] Cement, Bone Right: Knee [employer] 08/18/2023 6195-1-001 / / [id number] Imp Bone Cement Simplex W/Gentamicin 6195-1-001 - [id number] Implanted:Qty: 1 on 05/11/2022 by Joseph Ramesh MD at [facility] Cement, Bone Right: Knee [employer] 08/18/2023 6195-1-001 / / [id number] Persona Partial Knee System Partial Articular Surface Right Medial Size J 8mm Thickness Implanted:Qty: 1 on 11/28/2017 Total Joint Componen t/Insert Right: Knee [employer] 07/17/2021 77-6256-843-0 8 / / [id number] Persona Partail Knee System Partial Tibia Cemented Size J Left Medial Implanted:Qty: 1 on 11/28/2017 Total Joint Componen t/Insert Left: Knee [employer] 08/17/2026 52-0004-634-0 1 / / [id number] Persona Partial Knee System Partial Femur Cemented Size 6 Left Medial Implanted:Qty: 1 on 11/28/2017 Total Joint Componen t/Insert Left: Knee [employer] 01/17/2027 51-7773-304-0 1 / / [id number] Persona Partial Knee System Partial Articular Surface Left Medial Size J 8mm Thickness Implanted:Qty: 1 on 11/28/2017 Total Joint Componen t/Insert Left: Knee [employer] 08/17/2021 27-9236-569-0 8 / / [id number] Persona Partial Knee System Partial Tibial Cemented Size J Right Medial Implanted:Qty: 1 on 11/28/2017 Total Joint Componen t/Insert Right: Knee [employer] 07/17/2026 15-6507-832-0 2 / / [id number] Persona Partial Knee System Partial Femur Cemented Size 6 Right Medial Implanted:Qty: 1 on 11/28/2017 Total Joint Componen t/Insert Right: Knee [employer] 04/18/2027 96-4149-704-0 2 / / [id number] Knee Tibia Stem 5deg Sz F R [id number] - [id number] Implanted:Qty: 1 on 05/11/2022 by Joseph Ramesh MD at [facility] Total Joint Componen t/Insert Right: Knee [employer] [id number] 12/25/2031 60-6364-188-0 2 / / [id number] Knee Femur Cr Cement Ccr Std Sz 8 R - [id number] Implanted:Qty: 1 on 05/11/2022 by Joseph Ramesh MD at [facility] Total Joint Componen t/Insert Right: Knee [employer] [id number] 08/23/2031 [id number] / / [id number] Imp Patella Zim Knee All Kelley 35mm 65-6484-287-35 - [id number] Implanted:Qty: 1 on 05/11/2022 by Joseph Ramesh MD at [facility] Total Joint Componen t/Insert Right: Knee [employer] [id number] 03/15/2027 31-9278-235-3 5 / / [id number] Surface Artc 14mm Najma Day Cngr 8-11 E-F Kn Rt Tib - [id number] Implanted:Qty: 1 on 05/11/2022 by Joseph Ramesh MD at [facility] Total Joint Componen t/Insert Right: Knee [employer] [id number] 12/01/2026 40-9270-695-1 4 [id number] Procedures Procedure Name Priority Date/Time Associated Diagnosis Comments HEMOGLOBIN A1C (EXTERNAL RESULT) Routine 04/25/2022 9:50 AM COIN ROLLING MACHINE OPERATOR BASIC METABOLIC PANEL Routine 03/04/2021 8:02 AM CDT LIPID PROFILE STAT 03/03/2021 9:58 AM CDT from Last 3 Months or Most Recently Relevant to Health Maintenance Results * (ABNORMAL) Hemoglobin A1c (External Result) (04/25/2022 9:50 AM COIN ROLLING MACHINE OPERATOR) Pathologist [facility] Hemoglobin A1C (External) 6.6(A) 0 - 56 % [facility] Blood 04/25/2022 9:50 AM COIN ROLLING MACHINE OPERATOR Narrative [facility] - 04/25/2022 9:50 AM [facility] LAB RESULT Provider Outside LAB - HIM EXTERNAL R ESULT Performing Organization Address [facility]/State/ZIP Co de Phone Number [facility] [address] [phone] * (ABNORMAL) Basic metabolic panel (03/04/2021 8:02 [...] PA-C LAB - BLOOD ORDER [facility] [address] [facility] Lab (1st floor, no room number) [place] [address], [facility] [phone] * (ABNORMAL) Lipid Profile (03/03/2021 9:58 AM [...] MD LAB - BLOOD ORDERABL ES LABORATORY [facility] [address] Lab (1st floor, no room number) [place] [address], [facility] [phone] from Last 3 Months or Most Recently Relevant to Health Maintenance Advance Directives For more information, please contact: [phone] * Full Code (Latest Code Status on [...] patie nt/ legal decision maker Care Teams Parts Room Assistant Relationship Specialty Start Date End Date Mario Keith MD [address] [address] PCP - General Internal Medicine 11/28/17
--- OUTSIDE RECORDS SUMMARY | 2024-01-15 08:09 | XMS_ITS | Encounter Summary ---
Author Organization [place] Address [address] [facility] [place] [address] Care Team Providers Care Knowledge Engineer Name Role Phone Mario Keith MD Primary Care Provider Encounter Details Date Type Department Care Team (Late st Contact Info) Description 06/20/2012 Abstract [facility] [place] [address] [place] [address] Erica Rodriguez PA-C [address] [place] [address] Social History Tobacco Use Types Packs/Day Years Used Date Smoking Tobacco: Never Assessed Sex and Gender Information Value Date Recorded Sex Assigned at Not on file Gender Identity Not on file Sexual Orientation Not on file documented as of this encounter Plan of Treatment Not on file documented as of this encounter Visit Diagnoses Not on filedocumented in this encounter Care Teams Knowledge Engineer Relationship Specialty Start Date End Date Mario Keith MD [facility] [address] [place] [address] PCP - General Internal Medicine 11/28/17 documented as of this encounter
--- OUTSIDE RECORDS SUMMARY | 2024-01-15 08:09 | XMS_ITS | Clinical Summary ---
Author Organization [facility], [facility]–1983 Address [address] [place] [address] Care Team Providers Care Arboriculturist Name Role Phone Needs Pcp, Assignment Primary [...] for each transition of care or referral. [facility] Medication Sig Dispensed Refills Start Date [...] Services) 1955 Medicare Annual Wellness Visit 1955 Cholesterol 1989 COVID-19 Vaccine ( season) 2023 10/03/2022, 02/01/2022, 08/18/2021, Additional history exists Influenza (#1) 2024 01/18/2022, 01/18, 01/13/2020, Additional history exists Pneumococcal 65+ Yrs [...] age to complete this topic Care Teams Arboriculturist Relationship Specialty Start Date End Date Needs Pcp, [place] [address] PCP - General 12/13/22
--- OUTSIDE RECORDS SUMMARY | 2024-01-15 08:09 | XMS_ITS | Encounter Summary ---
Author Organization [place] Address [facility]ly [facility] [place] [address] Care Team Providers Care Stripper And Taper Name Role Phone Mario Keith MD Primary Care Provider Reason for Visit * Reason Onset Date Comments Medication Question 05/11/2022 Pharmacy is requesting a call back on the prescription for Eloquis. Please call them back to advise Encounter Details Date Type Department Care Team (Late st Contact Info) Description 05/11/[address] [facility] [address] [place] [phone] Joseph Ramesh MD [facility] [address] [facility] [address] [place] [address] Medication Question (Pharmacy is requesting [...] Coronavirus/COVID-19? No / Unsure 05/11/2022 12:15 PM CLINICAL NURSE documented as of this encounter Miscellaneous Notes * Telephone Encounter - Danyell Hein - 05/11/2022 6:02 PM CST [facility] Phone Message May a detailed message be left on voicemail: yes Reason for Call: Medication Question or concern regarding medication Prescription Clarification Name of Medication: eloquis Prescribing Provider: domitila Pharmacy: [facility] What on the order needs clarification? Pharmacy is requesting a call back on the prescription for Eloquis. Please call them back to advise Action Taken: Other: [email or web address] Domtiila Travel Screening: Not Applicable 2 ICAL NURSE documented in this encounter Plan of Treatment Not on file documented as of this encounter Visit Diagnoses Not on filedocumented in this encounter Care Teams Stripper And Taper Relationship Specialty Start Date End Date Mario Keith MD [address] [address] PCP - General Internal Medicine 11/28/17 documented as of this encounter
--- OUTSIDE RECORDS SUMMARY | 2024-01-15 08:09 | XMS_ITS | Clinical Summary ---
Author Organization [facility] Address [place], [place] [address] Care Team Providers Care Watch Technician Name Role Phone Mario Keith MD Primary Care Provider [phone] Allergies Active Allergy Reactions Criticality Noted Date [...] 180.3 cm (5' 11) 07/23/2014 1:14 PM [facility] Body Mass Index 40.03 07/23/2014 1:14 PM [facility] Plan of Treatment Health Maintenance Due Date [...] CHOLESTEROL,TOTA L 204(H) 100 - 199 mg/dL [facility] TRIGLYCER[facility] 344(H) <150 mg/dL [facility] HDL CHOLESTEROL 53 >40 mg/dL [facility] CHOL/HDL RATIO 3.85 <4.50 [facility] NON-HDL CHOLESTEROL 151 Undefined mg/dL [facility] LDL CHOLESTEROL 82 <131 mg/dL [facility] PATIENT STATUS Fasting [facility] Blood specimen (specimen) BLOOD SPECIMEN / Unknown 01/05/2013 6:25 AM CDT 01/04/2013 10:00 PM CDT Madhu Rodriguez MD CHEMISTRY [facility] [place]NAL ZIP [address] [place] [address] from Last 3 Months or Most Recently Relevant to Health Maintenance Advance Directives * Full Code (Latest Code Status on File) Date Activated Date Inactivated Comments 01/04/2013 5:51 PM 01/05/2013 5:36 PM Care Teams Watch Technician Relationship Specialty Start Date End Date Mario Keith MD [address] [place] [address] PCP - General Family Practice 07/06/10
--- OUTSIDE RECORDS SUMMARY | 2024-01-15 08:09 | XMS_ITS | Clinical Summary ---
Author Organization [place] Address [address] [place] [address] Care Team Providers Care Display Trimmer Name Role Phone Mario Keith MD Primary [...] Comments Blood Pressure 145/76 05/12/2022 8:23 AM MECHANICAL EXPERT Pulse 74 05/12/2022 8:23 AM MECHANICAL EXPERT Temperature 36.7 ??C (98 ??F) 05/12/2022 8:23 AM MECHANICAL EXPERT Respiratory Rate 16 05/12/2022 8:23 AM MECHANICAL EXPERT Oxygen Saturation 96% 05/12/2022 8:23 AM MECHANICAL EXPERT Inhaled Oxygen Concentration - - Weight 131.1 kg (289 lb) 04/23/2022 1:00 PM MECHANICAL EXPERT Height 180.3 cm (5' 11) 04/23/2022 1:00 PM MECHANICAL EXPERT Body Mass Index 40.31 04/23/2022 1:00 PM MECHANICAL EXPERT Plan of Treatment Health Maintenance Due Date [...] PCV20) 11/14/2022 07/06/2020, 11/14/2017, 07/04/2012 COVID-19 Vaccine (2022- season) 2023 02/01/2022, 08/18/2021, 03/10/2021, Additional history exists INFLUENZA VACCINE (#1) 2024 , 02/02/2021, 01/13/2020, Additional history exists DTAP/TDAP/TD IMMUNIZATION [...] this topic Medical Devices Implanted Type Area Independent Producer Device Identifier Shelf Expiration Date Model / Serial / Lot Cement Bone Simplex Hv 40g W/O Gentra Implanted:Qty: 2 on 11/28/2017 Cement, Bone N/A: Knee [employer] 04/18/2019 6194-1-001 / / [id number] Description:Implanted into b ilateral knees Imp Bone Cement Simplex W/Gentamicin 6195-1-001 - [id number] Implanted:Qty: 1 on 05/11/2022 by Joseph Ramesh MD at [facility] Cement, Bone Right: Knee [employer] 08/18/2023 6195-1-001 / / [id number] Imp Bone Cement Simplex W/Gent[employer]in 6195-1-001 - [id number] Implanted:Qty: 1 on 05/11/2022 by Joseph Ramesh MD at [facility] Cement, Bone Right: Knee [employer] 08/18/2023 6195-1-001 / / [id number] Persona Partial Knee System Partial Articular Surface Right Medial Size J 8mm Thickness Implanted:Qty: 1 on 11/28/2017 Total Joint Componen t/Insert Right: Knee [employer] 07/17/2021 29-2263-406-0 8 / / [id number] Persona Partail Knee System Partial Tibia Cemented Size J Left Medial Implanted:Qty: 1 on 11/28/2017 Total Joint Componen t/Insert Left: Knee [employer] 08/17/2026 48-1921-991-0 1 / / [id number] Persona Partial Knee System Partial Femur Cemented Size 6 Left Medial Implanted:Qty: 1 on 11/28/2017 Total Joint Componen t/Insert Left: Knee [employer] 01/17/2027 14-8409-785-0 1 / / [id number] Persona Partial Knee System Partial Articular Surface Left Medial Size J 8mm Thickness Implanted:Qty: 1 on 11/28/2017 Total Joint Componen t/Insert Left: Knee [employer] 08/17/2021 96-7967-029-0 8 / / [id number] Persona Partial Knee System Partial Tibial Cemented Size J Right Medial Implanted:Qty: 1 on 11/28/2017 Total Joint Componen t/Insert Right: Knee [employer] 07/17/2026 43-8457-048-0 2 / / [id number] Persona Partial Knee System Partial Femur Cemented Size 6 Right Medial Implanted:Qty: 1 on 11/28/2017 Total Joint Componen t/Insert Right: Knee [employer] 04/18/2027 76-7572-419-0 2 / / [id number] Knee Tibia Stem 5deg Sz F R [id number] - [id number] Implanted:Qty: 1 on 05/11/2022 by Joseph Ramesh MD at [facility] Total Joint Componen t/Insert Right: Knee [employer] [id number] 12/25/2031 30-3851-859-0 2 / / [id number] Knee Femur Cr Cement Ccr Std Sz 8 R - [id number] Implanted:Qty: 1 on 05/11/2022 by Joseph Ramesh MD at [facility] Total Joint Componen t/Insert Right: Knee [employer] [id number] 08/23/2031 [id number] / / [id number] Imp Patella Zim Knee All Kelley 35mm 43-6433-416-35 - [id number] Implanted:Qty: 1 on 05/11/2022 by Joseph Ramesh MD at [facility] Total Joint Componen t/Insert Right: Knee [employer] [id number] 03/15/2027 64-3163-487-3 5 / / [id number] Surface Artc 14mm Najma Day gr 8-11 E-F Kn Rt Tib - [id number] Implanted:Qty: 1 on 05/11/2022 by Joseph Ramesh MD at [facility] Total Joint Componen t/Insert Right: Knee [employer] [id number] 12/01/2026 45-1707-725-1 [id number] Procedures Procedure Name Priority Date/Time Associated Diagnosis Comments HEMOGLOBIN A1C (EXTERNAL RESULT) Routine 04/25/2022 9:50 AM MECHANICAL EXPERT BASIC METABOLIC PANEL Routine 03/04/2021 8:02 AM CDT LIPID PROFILE STAT 03/03/2021 9:58 AM CDT from Last 3 Months or Most Recently Relevant to Health Maintenance Results * (ABNORMAL) Hemoglobin A1c (External Result) (04/25/2022 9:50 AM MECHANICAL EXPERT) Hemoglobin A1C (External) 6.6(A) 0 - 56 % [facility] Blood 04/25/2022 9:50 AM MECHANICAL EXPERT Narrative [facility] - 04/25/2022 9:50 AM MECHANICAL EXPERT [facility] LAB RESULT Provider Outside LAB - HIM EXTERNAL R ESULT [facility] [address] [place] [address], [facility] [phone] * (ABNORMAL) Basic metabolic panel (03/04/2021 8:02 [...] - 14 mmol/L 03/04/2021 8:33 AM CDT [facility] Urea Nitrogen 6(L) 7 - 30 mg/dL 03/04/2021 8:33 AM CDT [facility] Creatinine 0.65(L) 0.66 - 1.25 mg/dL 03/04/2021 8:33 AM CDT [facility] Calcium 8.8 8.5 - 10.1 mg/dL 03/04/2021 8:33 AM CDT [facility] Glucose 203(H) 70 - 99 mg/dL 03/04/2021 8:33 AM CDT [facility] GFR Estimate >90 >60 mL/min/1.7 3m2 03/04/2021 8:33 AM CDT [facility] Comment:As of November 27, 2020, eGFR [...] PA-C LAB - BLOOD ORDER [facility] [address] Lab (1st floor, no room number) [place] [address], [facility] [phone] * (ABNORMAL) Lipid Profile (03/03/2021 9:58 AM CDT) Cholesterol 152 <200 mg/dL 03/03/2021 10:52 AM CDT LABORATORY Triglycerides 168(H) <150 mg/dL 03/03/2021 10:52 AM CDT LABORATORY Direct Measure HDL 52 >=40 mg/dL 03/03/2021 10:52 AM CDT [facility] LDL Cholesterol Calculated 66 <=100 mg/dL 03/03/2021 10:52 AM CDT LABORATORY Non HDL Cholesterol 100 <130 mg/dL 03/03/2021 10:52 AM CDT [facility] Blood STRUCTURE OF LEFT UPPER LIMB [...] MD LAB - BLOOD ORDERABL ES LABORATORY [facility] [address] [facility] Lab (1st floor, no room number) [place] [address], [facility] [phone] from Last 3 Months or Most Recently Relevant to Health Maintenance Advance Directives For more information, please contact: [phone] * Full Code (Latest Code Status on File) Date Activated Date Inactivated Comments 05/11/2022 4:57 PM 05/12/2022 1:34 PM All basic and advanced life-sustaining interventions are performed as appropriate Question Answer Comments Code status determined by: Discussion with rommel nt/ legal decision maker * Full Code Date Activated Date Inactivated Comments 03/03/2021 3:38 PM 03/06/2021 6:26 PM All basic and advanced life-sustaining interventions are performed as appropriate Question Answer Comments Code status determined by: Discussion with rommel nt/ legal decision maker Care Teams Display Trimmer Relationship Specialty Start Date End Date Mario Keith MD [address] [address] PCP - General Internal Medicine 11/28/17
== END 2024-01-15 08:07 | disposition home or self-care (01) ==
LOC: NFLDREF 08:07
PROVIDERS: PCP Internal Medicine; Visit Provider Internal Medicine
DX: I10 Essential (primary) hypertension (principal); E78.1 Pure hyperglyceridemia
CPT/HCPCS: 80053

== ENCOUNTER 2024-10-27 09:30 | Outpatient (CLI) | payer MEDICARE, BC, SELFPAY | END 2024-10-27 09:31 | disposition home or self-care (01) | LOC: NFLDREF 10-28 03:11 | PROVIDERS: PCP Internal Medicine; Referring Provider Internal Medicine; Visit Provider Internal Medicine | DX: E11.9 Type 2 diabetes mellitus without complications (principal) | CPT/HCPCS: 82043; 82570 ==

== ENCOUNTER 2024-12-29 09:57 | Outpatient (CLI) | payer MEDICARE, BC, SELFPAY | END 2024-12-29 09:58 | disposition home or self-care (01) | PROVIDERS: PCP Internal Medicine; Visit Provider Internal Medicine | DX: R42 Dizziness and giddiness (principal); I10 Essential (primary) hypertension; M10.9 Gout, unspecified; E78.1 Pure hyperglyceridemia; D50.9 Iron deficiency anemia, unspecified | CPT/HCPCS: 80053; 84443 ==